=== PATIENT | female | born 1950 | race American Indian/Alaskan Native ===

== ENCOUNTER 2022-03-03 12:31 | Inpatient (IN) | payer MEDICARE ==
--- NOTE | 2022-03-03 13:45 | XRay Report ---
. XR chest 1V ap INDICATION / CLINICAL INFORMATION: Dyspnea. COMPARISON: 12/13/2010 FINDINGS: SUPPORT DEVICES: None. HEART /PULMONARY VASCULATURE: Cardiac enlargement with pulmonary vasculature congestion. LUNGS / PLEURA: Diffuse increased interstitial opacities, likely reflecting edema. No focal airspace consolidation is identified. No sizable pleural effusion. No pneumothorax. ADDITIONAL FINDINGS: No significant additional findings. IMPRESSION: CHF/volume overload with moderate pulmonary edema. Signer Name: Evans Payne MD Signed: 03/03/2022 1:41 PM Workstation Name: [employer]
[2022-03-03] MEDS ORDERED: FUROSEMIDE 40 MG/4 ML INJ IV ONE (13:59)
[2022-03-03 14:20] LABS: Basophils % (Auto) 0.5 % (0.0-1.8); Eosinophils # (Auto) 0.2 K/mm3 (0.0-0.4); Eosinophils % (Auto) 2.1 % (0.0-4.3); Hematocrit 41.1 % (30.3-42.9); Hemoglobin 13.1 gm/dl (10.1-14.3); Lymphocytes # (Auto) 0.8 K/mm3 (1.2-5.4); Lymphocytes % (Auto) 9.7 % (13.4-35.0); Mean Corpuscular HGB Conc 32 % (30-34); Mean Corpuscular Volume 91 fl (79-97); Monocytes # (Auto) 0.3 K/mm3 (0.0-0.8); Monocytes % (Auto) 3.1 % (0.0-7.3); Platelet Count 211 K/mm3 (140-440); Red Blood Count 4.51 M/mm3 (3.65-5.03); Red Cell Distribution Width 16.1 % (13.2-15.2)
[2022-03-03 14:35] LABS: Albumin 3.5 g/dL (3.9-5); Calcium 9.6 mg/dL (8.4-10.2)
--- NOTE | 2022-03-03 14:54 | Emergency Department Report ---
ED Shortness of Breath HPI - General Chief Complaint: Dyspnea/Respdistress Stated Complaint: SOB Time Seen by Provider: 03/03/22 12:59 Source: patient, EMS Mode of arrival: Stretcher Limitations: Physical Limitation - History of Present Illness Initial Comments: Patient is a 71-year-old female presenting to ED with complaint of shortness of breath. States she was at her PCPs office earlier today stating she was not feeling well when symptoms began. She has history of CHF and is on home oxygen at 5 L/min. - Related Data Allergies Allergy/AdvReac Type Severity Reaction Status Date / Time iodine Allergy Anaphylaxis Verified 03/03/22 12:49 Penicillins Allergy Anaphylaxis Verified 03/03/22 12:49 shellfish derived Allergy Anaphylaxis Verified 03/03/22 12:49 ED Review of Systems ROS: Stated complaint: SOB Other details as noted in HPI Constitutional: denies: chills, fever Respiratory: SOB at rest Cardiovascular: denies: chest pain, palpitations Endocrine: no symptoms reported Gastrointestinal: denies: abdominal pain, nausea, diarrhea Musculoskeletal: denies: back pain, joint swelling, arthralgia Skin: denies: rash, lesions Neurological: denies: headache, weakness, paresthesias Psychiatric: denies: anxiety, depression ED Past Medical Hx - Past Medical History Previous Medical History?: Yes Hx Hypertension: Yes Hx Congestive Heart Failure: Yes Hx Diabetes: No Hx Deep Vein Thrombosis: No Hx Arthritis: Yes Hx Asthma: Yes Hx COPD: No - Surgical History Past Surgical History?: Yes Additional Surgical History: Left knee surgery, Left heel - Social History Smoking Status: Former Smoker ED Physical Exam - General Limitations: Physical Limitation General appearance: alert, in no apparent distress, obese - Head Head exam: Present: atraumatic, normocephalic - Respiratory Respiratory exam: Present: respiratory distress (Mild), decreased breath sounds - Cardiovascular Cardiovascular Exam: Present: regular rate, normal rhythm, normal heart sounds - GI/Abdominal GI/Abdominal exam: Present: soft. Absent: distended, tenderness - Rectal Rectal exam: Present: deferred - Neurological Exam Neurological exam: Present: alert, oriented X3 - Psychiatric Psychiatric exam: Present: normal affect, normal mood - Skin Skin exam: Present: warm, dry, intact, normal color ED Course Vital Signs 03/03/22 03/03/22 12:43 13:29 Temperature 98.4 F 98.0 F Pulse Rate 82 78 Respiratory 20 13 Rate Blood Pressure 156/86 127/65 [Left] O2 Sat by Pulse 92 93 Oximetry ED Medical Decision Making - Lab Data Result diagrams: 03/03/22 13:34 03/03/22 13:34 - Medical Decision Making Chest x-ray shows cardiomegaly with moderate pulmonary edema suggestive of acute CHF exacerbation. Patient given IV Lasix in the emergency department. BNP 11,800. Will admit to hospitalist for further diuresis. Critical care attestation.: If time is entered above; I have spent that time in minutes in the direct care of this critically ill patient, excluding procedure time. ED Disposition Clinical Impression: CHF exacerbation Disposition: ADMITTED INPATIENT Is pt being admited?: Yes Condition: Stable
--- NOTE | 2022-03-03 20:19 | History and Physical Report ---
History of Present Illness Date of examination: 03/03/22 Date of admission: 03/03/2022 Chief complaint: Increasing shortness of breath for couple of days History of present illness: 71-year-old -[place] female with pleasant and smiling sent from her PCPs office for increasing shortness of breath. Patient has history of CHF 5 L nasal cannula oxygen at home. Patient states that she is compliant with medications. Medication list not on the chart. Patient has orthopnea and shortness of breath on minimal exertion. Consistent with class IV NYHA symptoms. No PND attacks. No chest pain. No palpitations. No diaphoresis. Patient is an exacerbating factor and rest is a relieving factor. Occasional chest pain - Past Medical History --Previous Medical History?: Yes --Hypertension: Yes --Congestive Heart Failure: Yes --Arthritis: Yes --Asthma: Yes - Surgical History --Past Surgical History?: Yes --Additional Surgical History: Left knee surgery, Left heel - Social History --Smoking Status: Former Smoker -Review of Systems --ROS: --Stated complaint: SOB ---Other details as noted in HPI Constitutional: denies: chills, fever Respiratory: SOB at rest Cardiovascular: Shortness of breath on minimal exertion Endocrine: no symptoms reported Gastrointestinal: denies: abdominal pain, nausea, diarrhea Musculoskeletal: denies: back pain, joint swelling, arthralgia Skin: denies: rash, lesions Neurological: denies: headache, weakness, paresthesias Psychiatric: denies: anxiety, depression Medications and Allergies Allergies Allergy/AdvReac Type Severity Reaction Status Date / Time iodine Allergy Anaphylaxis Verified 03/03/22 12:49 Penicillins Allergy Anaphylaxis Verified 03/03/22 12:49 shellfish derived Allergy Anaphylaxis Verified 03/03/22 12:49 Exam - Constitutional Vitals: Temp Pulse Resp BP Pulse Ox 98.0 F 78 13 127/65 93 03/03/22 13:29 03/03/22 13:29 03/03/22 13:29 03/03/22 13:29 03/03/22 13:29 General appearance: Present: mild distress, well-nourished - EENT Eyes: Present: PERRL ENT: hearing intact, clear oral mucosa - Neck Neck: Present: supple, normal ROM - Respiratory Respiratory effort: normal Respiratory: bilateral: CTA - Cardiovascular Rhythm: regular Heart Sounds: Present: S1 & S2. Absent: rub, click - Extremities Extremities: pulses symmetrical, No edema Peripheral Pulses: within normal limits - Abdominal General gastrointestinal: Present: soft, non-tender, non-distended, normal bowel sounds Female genitourinary: Present: normal - Integumentary Integumentary: Present: clear, warm, dry - Musculoskeletal Musculoskeletal: gait normal, strength equal bilaterally - Psychiatric Psychiatric: appropriate mood/affect, intact judgment & insight - Neurologic Neurologic: CNII-XII intact, moves all extremities HEART Score - HEART Score History: Highly suspicious Age: > 65 Risk factors: 1-2 risk factors Troponin: Troponin T < 0.010 ng/mL (0.00-0.029) 03/03/22 13:34 Troponin: < normal limit - Critical Actions Critical Actions: 4-6 pts:12-16.6% risk of adverse cardiac event. Should be admitted Results - Labs CBC & Chem 7: 03/04/22 03:05 03/04/22 02:51 Labs: Laboratory Last Values WBC 8.5 K/mm3 (4.5-11.0) 03/03/22 13:34 RBC 4.51 M/mm3 (3.65-5.03) 03/03/22 13:34 Hgb 13.1 gm/dl (10.1-14.3) 03/03/22 13:34 Hct 41.1 % (30.3-42.9) 03/03/22 13:34 MCV 91 fl (79-97) 03/03/22 13:34 MCH 29 pg (28-32) 03/03/22 13:34 MCHC 32 % (30-34) 03/03/22 13:34 RDW 16.1 % (13.2-15.2) H 03/03/22 13:34 Plt Count 211 K/mm3 (140-440) 03/03/22 13:34 Lymph % (Auto) 9.7 % (13.4-35.0) L 03/03/22 13:34 [place] % (Auto) 3.1 % (0.0-7.3) 03/03/22 13:34 Eos % (Auto) 2.1 % (0.0-4.3) 03/03/22 13:34 Baso % (Auto) 0.5 % (0.0-1.8) 03/03/22 13:34 Lymph # (Auto) 0.8 K/mm3 (1.2-5.4) L 03/03/22 13:34 [place] # (Auto) 0.3 K/mm3 (0.0-0.8) 03/03/22 13:34 Eos # (Auto) 0.2 K/mm3 (0.0-0.4) 03/03/22 13:34 Baso # (Auto) 0.0 K/mm3 (0.0-0.1) 03/03/22 13:34 Seg Neutrophils % 84.6 % (40.0-70.0) H 03/03/22 13:34 Seg Neutrophils # 7.2 K/mm3 (1.8-7.7) 03/03/22 13:34 Sodium 141 mmol/L (137-145) 03/03/22 13:34 Potassium 4.8 mmol/L (3.6-5.0) 03/03/22 13:34 Chloride 106.2 mmol/L (98-107) 03/03/22 13:34 Carbon Dioxide 22 mmol/L (22-30) 03/03/22 13:34 Anion Gap 18 mmol/L 03/03/22 13:34 BUN 47 mg/dL (7-17) H 03/03/22 13:34 Creatinine 1.7 mg/dL (0.6-1.2) H 03/03/22 13:34 Estimated GFR 36 ml/min 03/03/22 13:34 BUN/Creatinine Ratio 28 % 03/03/22 13:34 Glucose 101 mg/dL (65-100) H 03/03/22 13:34 Calcium 9.6 mg/dL (8.4-10.2) 03/03/22 13:34 Total Bilirubin 0.50 mg/dL (0.1-1.2) 03/03/22 13:34 AST 13 units/L (5-40) 03/03/22 13:34 ALT 7 units/L (7-56) 03/03/22 13:34 Alkaline Phosphatase 102 units/L (35-129) 03/03/22 13:34 Troponin T < 0.010 ng/mL (0.00-0.029) 03/03/22 13:34 NT-Pro-B Natriuret Pep 95145 pg/mL (0-900) H 03/03/22 13:34 Total Protein 9.1 g/dL (6.3-8.2) H 03/03/22 13:34 Albumin 3.5 g/dL (3.9-5) L 03/03/22 13:34 Albumin/Globulin Ratio 0.6 % 03/03/22 13:34 Short CBC 03/03/22 Range/Units 13:34 WBC 8.5 (4.5-11.0) K/mm3 Hgb 13.1 (10.1-14.3) gm/dl Hct 41.1 (30.3-42.9) % Plt Count 211 (140-440) K/mm3 BMP 03/03/22 13:34 Sodium 141 Potassium 4.8 Chloride 106.2 Carbon Dioxide 22 BUN 47 H Creatinine 1.7 H Glucose 101 H Calcium 9.6 Cardiac Enzymes 03/03/22 Range/Units 13:34 Troponin T < 0.010 (0.00-0.029) ng/mL Liver Function 03/03/22 Range/Units 13:34 Total Bilirubin 0.50 (0.1-1.2) mg/dL AST 13 (5-40) units/L ALT 7 (7-56) units/L Alkaline Phosphatase 102 (35-129) units/L Albumin 3.5 L (3.9-5) g/dL - Imaging and Cardiology EKG: report reviewed (Sinus tachycardia no acute ST-T wave changes) Chest x-ray: report reviewed Imaging and Cardiology: Chest x-ray Findings Cardiac enlargement with pulmonary vascular congestion Diffuse increased interstitial opacities likely reflecting edema. No focal airspace consolidation is identified. No sizable pleural effusion. No pneumothorax. Impression Assessment and Plan Advance Directives: Yes Plan of care discussed with patient/family: Yes - Patient Problems (1) Acute respiratory failure with hypoxia Current Visit: Yes Status: Acute Plan to address problem: Patient is on 5 L nasal cannula oxygen at home Patient was hypoxic initially at the time of admission to the ER (2) Acute exacerbation of congestive heart failure Current Visit: Yes Status: Acute Qualifiers: Heart failure type: combined systolic and diastolic Qualified Code(s): I50.43 - Acute on chronic combined systolic (congestive) and diastolic (congestive) heart failure Plan to address problem: Patient initiated on IV Lasix and Aldactone Noncompliance Daily weights Daily intake and output Echocardiogram for ejection fraction and wall motion and valvular abnormalities Cardiology consult BNP is 11 875 (3) HTN (hypertension) Current Visit: Yes Status: Chronic Qualifiers: Hypertension type: primary hypertension Qualified Code(s): I10 - Essential (primary) hypertension Plan to address problem: Home medications not on chart to be reconsidered Patient initiated on losartan and Coreg (4) Atypical chest pain Current Visit: Yes Status: Inactive Plan to address problem: Noncardiac Repeat troponin First troponin is normal (5) DVT prophylaxis Current Visit: Yes Status: Acute Plan to address problem: On anticoagulation GI prophylaxis (6) Advance care planning Current Visit: Yes Status: Acute Plan to address problem: Disease education conducted, care plan discussed, diagnosis discussed, prognosis discussed and patient acknowledged understanding with care plan. +30 minutes.
[2022-03-03] MEDS ORDERED: METOCLOPRAMIDE 10 MG/2 ML INJ IV PRN (20:28)
[2022-03-03] MEDS ORDERED: MORPHINE 2 MG/1 ML INJ IV PRN (20:28)
[2022-03-03] MEDS ORDERED: ONDANSETRON 4 MG/2 ML INJ IV PRN (20:28)
[2022-03-03] MEDS ORDERED: SPIRONOLACTONE 50 MG TAB PO ONE (20:46)
[2022-03-03] MEDS ORDERED: FAMOTIDINE 20 MG/2 ML INJ IV SCH (22:00)
[2022-03-03] MEDS ORDERED: HEPARIN 5,000 UNIT/1 ML VIAL SUB-Q SCH (22:00)
[2022-03-03] MEDS: FAMOTIDINE 20 MG/2 ML INJ IV SCH (22:19)
[2022-03-03] MEDS: FUROSEMIDE 40 MG/4 ML INJ IV SCH (22:19)
[2022-03-04 03:47] LABS: Basophils % (Auto) 0.3 % (0.0-1.8); Eosinophils # (Auto) 0.2 K/mm3 (0.0-0.4); Eosinophils % (Auto) 1.8 % (0.0-4.3); Hematocrit 40.5 % (30.3-42.9); Hemoglobin 12.7 gm/dl (10.1-14.3); Lymphocytes # (Auto) 0.8 K/mm3 (1.2-5.4); Lymphocytes % (Auto) 8.9 % (13.4-35.0); Mean Corpuscular HGB Conc 31 % (30-34); Mean Corpuscular Volume 92 fl (79-97); Monocytes # (Auto) 0.4 K/mm3 (0.0-0.8); Monocytes % (Auto) 4.9 % (0.0-7.3); Platelet Count 208 K/mm3 (140-440); Red Blood Count 4.39 M/mm3 (3.65-5.03)
[2022-03-04 04:06] LABS: Albumin 3.4 g/dL (3.9-5); Calcium 9.4 mg/dL (8.4-10.2)
[2022-03-04] MEDS: FUROSEMIDE 40 MG/4 ML INJ IV SCH ×2 (07:43→19:01)
[2022-03-04] MEDS: FAMOTIDINE 20 MG/2 ML INJ IV SCH ×2 (09:41→21:42)
--- NOTE | 2022-03-04 12:51 | Consultation ---
History of Present Illness - Reason for Consult Consult date: 03/04/22 chronic renal failure Requesting physician: STAR PATTERSON - History of Present Illness This is a 71 yo F with past medical history of type 2 DM, Hypertension, HFpEF, ELISEO, on home O2, who was sent to from her PCPs office for increasing shortness of breath. Patient states that she is compliant with medications./ Patient has orthopnea and shortness of breath on minimal exertion. Consistent with class IV NYHA symptoms. CXR showed evidence of volume overload with pulmonary edema. Labs showed elevated BUN/Cr at 46/1.8mg/dl for which renal consult is requested. Based on history and review of previous charts, pt has underlying CKD 3b in the past, but she has not been seeing a comptometer operator, since she has been on hospice. Patient denies recent NSAIDs use or IV contrast exposure. Past History Past Medical History: diabetes, heart failure, hypertension, renal failure Past Surgical History: Other Social history: denies: smoking, alcohol abuse, prescription drug abuse, IV drug use Family history: hypertension Medications and Allergies Allergies Allergy/AdvReac Type Severity Reaction Status Date / Time iodine Allergy Anaphylaxis Verified 03/03/22 12:49 Penicillins Allergy Anaphylaxis Verified 03/03/22 12:49 shellfish derived Allergy Anaphylaxis Verified 03/03/22 12:49 Active Meds: Active Medications Acetaminophen (Acetaminophen 325 Mg Tab) 650 mg PO Q4H PRN PRN Reason: Pain MILD(1-3)/Fever >100.5/[place]OFF[place] Famotidine (Famotidine 20 Mg/2 Ml Inj) 10 mg IV BID [facility] Last Admin: 03/04/22 09:41 Dose: 10 mg Furosemide (Furosemide 40 Mg/4 Ml Inj) 40 mg IV 0600,1800 [facility] Last Admin: 03/04/22 07:43 Dose: 40 mg Heparin Sodium (Porcine) (Heparin 5,000 Unit/1 Ml Vial) 5,000 unit SUB-Q Q8HR [facility] Metoclopramide HCl (Metoclopramide 10 Mg/2 Ml Inj) 10 mg IV Q6H PRN PRN Reason: Nausea And Vomiting Morphine Sulfate (Morphine 2 Mg/1 Ml Inj) 2 mg IV Q4H PRN PRN Reason: Pain, Moderate (4-6) Ondansetron HCl (Ondansetron 4 Mg/2 Ml Inj) 4 mg IV Q8H PRN PRN Reason: Nausea And Vomiting Oxycodone/Acetaminophen (Oxycodone /Acetaminophen 5-325mg Tab) 1 tab PO Q6H PRN PRN Reason: Pain, Moderate (4-6) Sodium Chloride (Sodium Chloride 0.9% 10 Ml Flush Syringe) 10 ml IV BID [facility] Last Admin: 03/04/22 09:44 Dose: 10 ml Sodium Chloride (Sodium Chloride 0.9% 10 Ml Flush Syringe) 10 ml IV PRN PRN PRN Reason: LINE FLUSH Review of Systems All systems: negative Constitutional: fatigue, weakness, malaise Cardiovascular: orthopnea, shortness of breath, dyspnea on exertion Exam - Vital Signs Vital signs: Vital Signs Temp Pulse Resp BP Pulse Ox 98.4 F 82 20 156/86 92 03/03/22 12:43 03/03/22 12:43 03/03/22 12:43 03/03/22 12:43 03/03/22 12:43 - General Appearance General appearance: well-developed, well-nourished, appears stated age, other (on O2 via [place] ) EENT: ATNC, PERRL, mucous membranes moist Neck: Present: neck supple Respiratory: Rales, Decreased Breath Sounds Heart: regular, S1S2 Gastrointestinal: Present: normoactive bowel sounds Integumentary: no rash Neurologic: no focal deficit, alert and oriented x3, strength 5/5, CN 3-12 intact Psychiatric: mood/affect appropriate, cooperative Results - Lab Results 03/04/22 03:05 03/04/22 02:51 Most recent lab results Calcium 9.4 mg/dL (8.4-10.2) 03/04/22 02:51 Assessment and Plan - Patient Problems (1) Chronic kidney disease, stage 3b Current Visit: Yes Status: Acute Plan to address problem: patient has known underlying CKD, most likely secondary to hypertensive nephrosclerosis. Compared to previous labs, pt appears to be at her baseline. Cont supportive care for CKD, avoid nephrotoxins, NSAIDs, IV contrast. Will check UA, urine lytes, urine protein/cr ratio (2) Hypertensive chronic kidney disease with stage 1 through stage 4 chronic kidney disease, or unspecified chronic kidney disease Current Visit: Yes Status: Acute Plan to address problem: monitor BP on current meds (3) Acute exacerbation of congestive heart failure Current Visit: Yes Status: Acute Qualifiers: Heart failure type: combined systolic and diastolic Qualified Code(s): I50.43 - Acute on chronic combined systolic (congestive) and diastolic (congestive) heart failure Plan to address problem: cont IV lasix, cont 2g Na diet, fluid restriction to 1.2L/day. strict I/Os, da corbin weight. Target net negative fluid balance to >1L/day. Echo is pending (4) Acute respiratory failure with hypoxia Current Visit: Yes Status: Acute Plan to address problem: started on IV lasix for volume control, cont supplemental O2 via NC
--- NOTE | 2022-03-04 13:48 | Consultation ---
History of Present Illness Consult date: 03/04/22 Consult reason: congestive heart failure, shortness of breath History of present illness: The patient is a 71-year-old woman who is morbidly obese, with obstructive sleep apnea on home CPAP, states that she has been on home hospice for the past 2 years. 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 She gives a history of "CHF" which she states was given to her many years ago, but there is no documentation for this. A cardiac catheterization in her records done in January 2011 showed no significant coronary artery disease, and left ventricular ejection fraction 50%. Her problem list at that time was hypertension and severe obesity, following which she was lost to cardiac follow- up in 2012. Work-up so far on this presentation, ECG is normal sinus rhythm, with poor R wave progression and nonspecific lateral T wave changes. There is either a right axis deviation or limb lead malposition based on axis changes on this ECG. Serial cardiac enzymes are negative. Chest x-ray revealed mild to moderate di ffuse interstitial edema. Past History Past Medical History: diabetes, hypertension, other (Severe obesity with obstructive sleep apnea) Past Surgical History: Other Social history: denies: smoking, alcohol abuse, prescription drug abuse, IV drug use Family history: hypertension Medications and Allergies Allergies Allergy/AdvReac Type Severity Reaction Status Date / Time iodine Allergy Anaphylaxis Verified 03/03/22 12:49 Penicillins Allergy Anaphylaxis Verified 03/03/22 12:49 shellfish derived Allergy Anaphylaxis Verified 03/03/22 12:49 Active Meds: Active Medications Acetaminophen (Acetaminophen 325 Mg Tab) 650 mg PO Q4H PRN PRN Reason: Pain MILD(1-3)/Fever >100.5/[place] Famotidine (Famotidine 20 Mg/2 Ml Inj) 10 mg IV BID [facility] Last Admin: 03/04/22 09:41 Dose: 10 mg Furosemide (Furosemide 40 Mg/4 Ml Inj) 40 mg IV 0600,1800 [facility] Last Admin: 03/04/22 07:43 Dose: 40 mg Heparin Sodium (Porcine) (Heparin 5,000 Unit/1 Ml Vial) 5,000 unit SUB-Q Q8HR [facility] Metoclopramide HCl (Metoclopramide 10 Mg/2 Ml Inj) 10 mg IV Q6H PRN PRN Reason: Nausea And Vomiting Morphine Sulfate (Morphine 2 Mg/1 Ml Inj) 2 mg IV Q4H PRN PRN Reason: Pain, Moderate (4-6) Ondansetron HCl (Ondansetron 4 Mg/2 Ml Inj) 4 mg IV Q8H PRN PRN Reason: Nausea And Vomiting Oxycodone/Acetaminophen (Oxycodone /Acetaminophen 5-325mg Tab) 1 tab PO Q6H PRN PRN Reason: Pain, Moderate (4-6) Sodium Chloride (Sodium Chloride 0.9% 10 Ml Flush Syringe) 10 ml IV BID [facility] Last Admin: 03/04/22 09:44 Dose: 10 ml Sodium Chloride (Sodium Chloride 0.9% 10 Ml Flush Syringe) 10 ml IV PRN PRN PRN Reason: LINE FLUSH Review of Systems Cardiovascular: edema, shortness of breath, no chest pain, no orthopnea, no palpitations, no rapid/irregular heart beat, no syncope, no lightheadedness Physical Examination Vital Signs Temp Pulse Resp BP Pulse Ox 98.4 F 82 20 156/86 92 03/03/22 12:43 03/03/22 12:43 03/03/22 12:43 03/03/22 12:43 03/03/22 12:43 General appearance: mild distress HEENT: Positive: PERRL Neck: Positive: neck supple Cardiac: Positive: Reg Rate and Rhythm Lungs: Positive: Decreased Breath Sounds Neuro: Positive: Grossly Intact Abdomen: Positive: Soft Female genitourinary: deferred Skin: Positive: Clear Extremities: Present: edema (Minimal) Results 03/04/22 03:05 03/04/22 02:51 Cardiac Enzymes 03/03/22 03/04/22 Range/Units 13:34 02:51 AST 13 12 (5-40) units/L CBC 03/03/22 03/04/22 Range/Units 13:34 03:05 WBC 8.5 8.5 (4.5-11.0) K/mm3 RBC 4.51 4.39 (3.65-5.03) M/mm3 Hgb 13.1 12.7 (10.1-14.3) gm/dl Hct 41.1 40.5 (30.3-42.9) % Plt Count 211 208 (140-440) K/mm3 Lymph # (Auto) 0.8 L 0.8 L (1.2-5.4) K/mm3 [place] # (Auto) 0.3 0.4 (0.0-0.8) K/mm3 Eos # (Auto) 0.2 0.2 (0.0-0.4) K/mm3 Baso # (Auto) 0.0 0.0 (0.0-0.1) K/mm3 Comprehensive Metabolic Panel 03/03/22 03/04/22 Range/Units 13:34 02:51 Sodium 141 141 (137-145) mmol/L Potassium 4.8 4.4 (3.6-5.0) mmol/L Chloride 106.2 104.6 (98-107) mmol/L Carbon Dioxide 22 24 (22-30) mmol/L BUN 47 H 46 H (7-17) mg/dL Creatinine 1.7 H 1.8 H (0.6-1.2) mg/dL Glucose 101 H 119 H (65-100) mg/dL Calcium 9.6 9.4 (8.4-10.2) mg/dL AST 13 12 (5-40) units/L ALT 7 6 L (7-56) units/L Alkaline Phosphatase 102 91 (35-129) units/L Total Protein 9.1 H 8.4 H (6.3-8.2) g/dL Albumin 3.5 L 3.4 L (3.9-5) g/dL EKG interpretations - Telemetry EKG Rhythm: Sinus Rhythm Assessment and Plan - Patient Problems (1) Interstitial edema Current Visit: Yes Status: Acute Plan to address problem: 71-year-old woman with morbid obesity, obstructive sleep apnea, hypertension, presents with shortness of breath and chest x-ray evidence of mild to moderate i nterstitial edema. Previous invasive cardiac work-up 10 years ago showed no significant coronary artery disease. Prior left ventricular systolic function assessment was well-preserved at 50%. An echocardiogram will be done for left ventricular function assessment. Continue diuretics and risk factor modification. Further cardiac evaluation and management will depend on clinical course.
--- NOTE | 2022-03-04 13:52 | Progress Note ---
Assessment and Plan Assessment and plan: #Acute on chronic hypoxic respiratory failure - etiology: Heart failure exacerbation. - baseline oxygen requirements: 5 L nasal cannula - supplemental oxygen: 8 L nasal cannula - Continue protocol: continue pulse oximetry, wean oxygen as tolerated, ordered incentive spirometry and educated patient on how to use it and its importance. - continue to monitor #Acute on chronic heart failure - Continue CHF exacerbation protocol: Telemetry, Strict I/O, monitor urine output every shift, daily weights, afterload reduction, low-sodium diet, and fluid restriction of approximately 1.5 mL/day, IV Lasix 40 mg twice daily - Supplemental oxygen: 8 L nasal cannula - ProBNP on admission: 875 - Cardiology consulted; pending recs - Pending TTE to evaluate cardiac function - Continue to monitor #Atypical chest pain Negative troponin x2 Likely secondary to volume overload in the setting of acute heart failure. #CKD stage III versus RIN Creatinine 1.8 (baseline unknown) Renally dose meds and avoid nephrotoxic drugs. Nephrology consulted; appreciate recs #Mild protein caloric malnutrition Albumin 3.4 Starting dietary supplementation #Morbid obesity #Weight loss counseling #Exercise counseling - BMI 53.1 - Counseled patient on the importance of weight loss, incorporating exercise, and dietary changes (lean meats, fresh fruits and vegetables, and water intake). Patient expresses understanding. - Time: +15 min #Advanced care planning -Disease education conducted, care plan discussed, diagnoses discussed, prognosis discussed, and patient acknowledges understanding with care plan -Time: +30 min Disposition Plan: Continue medical management Total Time Spent with Patient (Minutes): 45 minutes History Interval history: No acute events overnight. Hospitalist Physical - Constitutional Vitals: Temp Pulse Resp BP Pulse Ox 98.0 F 84 19 112/62 95 03/04/22 07:32 03/04/22 12:26 03/04/22 12:26 03/04/22 12:26 03/04/22 12:26 General appearance: Present: mild distress, well-nourished, obese - EENT Eyes: Present: PERRL, EOM intact ENT: hearing intact, clear oral mucosa, dentition normal - Neck Neck: Present: supple, normal ROM - Respiratory Respiratory effort: normal Respiratory: bilateral: diminished (8 L nasal cannula), rales - Cardiovascular Rhythm: regular Heart Sounds: Present: S1 & S2 - Extremities Extremities: no ischemia, pulses intact, pulses symmetrical, normal temperature, normal color Extremity abnormal: edema (Trace edema bilateral lower extremities) Peripheral Pulses: within normal limits - Abdominal General gastrointestinal: soft, non-tender, non-distended, normal bowel sounds - Integumentary Integumentary: Present: clear, warm, dry - Psychiatric Psychiatric: appropriate mood/affect, cooperative - Neurologic Neurologic: CNII-XII intact - Allied Health Allied health notes reviewed: nursing HEART Score - HEART Score Age: > 65 Risk factors: 1-2 risk factors Troponin: Troponin T < 0.010 ng/mL (0.00-0.029) 03/03/22 13:34 Troponin: < normal limit - Critical Actions Critical Actions: 4-6 pts:12-16.6% risk of adverse cardiac event. Should be admitted Results - Labs CBC & Chem 7: 03/04/22 03:05 03/04/22 02:51 Labs: Laboratory Last Values WBC 8.5 K/mm3 (4.5-11.0) 03/04/22 03:05 RBC 4.39 M/mm3 (3.65-5.03) 03/04/22 03:05 Hgb 12.7 gm/dl (10.1-14.3) 03/04/22 03:05 Hct 40.5 % (30.3-42.9) 03/04/22 03:05 MCV 92 fl (79-97) 03/04/22 03:05 MCH 29 pg (28-32) 03/04/22 03:05 MCHC 31 % (30-34) 03/04/22 03:05 RDW 16.0 % (13.2-15.2) H 03/04/22 03:05 Plt Count 208 K/mm3 (140-440) 03/04/22 03:05 Lymph % (Auto) 8.9 % (13.4-35.0) L 03/04/22 03:05 [place] % (Auto) 4.9 % (0.0-7.3) 03/04/22 03:05 Eos % (Auto) 1.8 % (0.0-4.3) 03/04/22 03:05 Baso % (Auto) 0.3 % (0.0-1.8) 03/04/22 03:05 Lymph # (Auto) 0.8 K/mm3 (1.2-5.4) L 03/04/22 03:05 [place] # (Auto) 0.4 K/mm3 (0.0-0.8) 03/04/22 03:05 Eos # (Auto) 0.2 K/mm3 (0.0-0.4) 03/04/22 03:05 Baso # (Auto) 0.0 K/mm3 (0.0-0.1) 03/04/22 03:05 Seg Neutrophils % 84.1 % (40.0-70.0) H 03/04/22 03:05 Seg Neutrophils # 7.2 K/mm3 (1.8-7.7) 03/04/22 03:05 Sodium 141 mmol/L (137-145) 03/04/22 02:51 Potassium 4.4 mmol/L (3.6-5.0) 03/04/22 02:51 Chloride 104.6 mmol/L (98-107) 03/04/22 02:51 Carbon Dioxide 24 mmol/L (22-30) 03/04/22 02:51 Anion Gap 17 mmol/L 03/04/22 02:51 BUN 46 mg/dL (7-17) H 03/04/22 02:51 Creatinine 1.8 mg/dL (0.6-1.2) H 03/04/22 02:51 Estimated GFR 34 ml/min 03/04/22 02:51 BUN/Creatinine Ratio 26 % 03/04/22 02:51 Glucose 119 mg/dL (65-100) H 03/04/22 02:51 Calcium 9.4 mg/dL (8.4-10.2) 03/04/22 02:51 Total Bilirubin 0.60 mg/dL (0.1-1.2) 03/04/22 02:51 AST 12 units/L (5-40) 03/04/22 02:51 ALT 6 units/L (7-56) L 03/04/22 02:51 Alkaline Phosphatase 91 units/L (35-129) 03/04/22 02:51 Troponin T < 0.010 ng/mL (0.00-0.029) 03/03/22 13:34 NT-Pro-B Natriuret Pep 18032 pg/mL (0-900) H 03/03/22 13:34 Total Protein 8.4 g/dL (6.3-8.2) H 03/04/22 02:51 Albumin 3.4 g/dL (3.9-5) L 03/04/22 02:51 Albumin/Globulin Ratio 0.7 % 03/04/22 02:51 Active Medications - Current Medications Current Medications: Generic Name Dose Route Start Last Admin Trade Name Freq PRN Reason Stop Dose Admin Acetaminophen 650 mg 03/03/22 20:28 Acetaminophen 325 Mg Tab PO Q4H PRN Pain MILD(1-3)/Fever >100.5/HOFFMAN Famotidine 10 mg 03/03/22 22:00 03/04/22 09:41 Famotidine 20 Mg/2 Ml Inj IV 10 mg BID VERN Administration Furosemide 40 mg 03/03/22 21:30 03/04/22 07:43 Furosemide 40 Mg/4 Ml Inj IV 40 mg 0600,1800 VERN Administration Heparin Sodium (Porcine) 5,000 unit 03/04/22 14:00 Heparin 5,000 Unit/1 Ml Vial SUB-Q Q8HR VERN Metoclopramide HCl 10 mg 03/03/22 20:28 Metoclopramide 10 Mg/2 Ml Inj IV Q6H PRN Nausea And Vomiting Morphine Sulfate 2 mg 03/03/22 20:28 Morphine 2 Mg/1 Ml Inj IV Q4H PRN Pain, Moderate (4-6) Ondansetron HCl 4 mg 03/03/22 20:28 Ondansetron 4 Mg/2 Ml Inj IV Q8H PRN Nausea And Vomiting Oxycodone/Acetaminophen 1 tab 03/03/22 20:28 Oxycodone /Acetaminophen 5-325mg Tab PO Q6H PRN Pain, Moderate (4-6) Sodium Chloride 10 ml 03/03/22 22:00 03/04/22 09:44 Sodium Chloride 0.9% 10 Ml Flush Syringe IV 10 ml BID VERN Administration Sodium Chloride 10 ml 03/03/22 20:28 Sodium Chloride 0.9% 10 Ml Flush Syringe IV PRN PRN LINE FLUSH
[2022-03-04] MEDS: HEPARIN 5,000 UNIT/1 ML VIAL SUB-Q SCH ×2 (15:25→21:42)
[2022-03-04 18:01] LABS: Bilirubin,Urine NEG (Negative); Blood,Urine MOD (Negative); Color,Urine Yellow (Yellow); Protein,Urine <15 mg/dL mg/dL (Negative); Urobilinogen,Urine < 2.0 mg/dL (<2.0)
[2022-03-04 18:15] LABS: Bacteria,Urine 1+ /HPF (Negative); Mucus,Urine FEW /HPF
[2022-03-04 18:45] LABS: Creatinine,Urine 41.2 mg/dL (0.1-20.0)
[2022-03-05] MEDS: FUROSEMIDE 40 MG/4 ML INJ IV SCH ×2 (06:21→19:34)
[2022-03-05] MEDS: HEPARIN 5,000 UNIT/1 ML VIAL SUB-Q SCH ×3 (06:21→22:33)
--- NOTE | 2022-03-05 08:50 | Progress Note ---
Assessment and Plan Assessment and plan: #Severe pulmonary hypertension #Acute on chronic hypoxic respiratory failure - etiology: Heart failure exacerbation. - baseline oxygen requirements: 5 L nasal cannula - supplemental oxygen: BiPAP Pulmonology consulted; appreciate recs - Continue protocol: continue pulse oximetry, wean oxygen as tolerated, ordered incentive spirometry and educated patient on how to use it and its importance. Continue IV Lasix 40 mg twice daily for volume reduction. - continue to monitor #Acute on chronic heart failureruled out - Continue CHF exacerbation protocol: Telemetry, Strict I/O, monitor urine output every shift, daily weights, afterload reduction, low-sodium diet, and fluid restriction of approximately 1.5 mL/day, IV Lasix 40 mg twice daily - Supplemental oxygen: 8 L nasal cannula - ProBNP on admission: ,875 - Cardiology consulted; appreciate recs - TTE (03/04/2022) revealing EF 50-55% with normal-sized LV, lower limits of normal LV systolic function, borderline concentric LVH, severely dilated RV, severely reduced RV systolic function, mildly dilated LA, severely dilated RA, RVSP >95 mmHg, and severe pulmonary hypertension. - Continue to monitor #Atypical chest painruled out Negative troponin x2 Likely secondary to volume overload in the setting of acute heart failure. #CKD stage III Creatinine 1.8 (baseline unknown) Renally dose meds and avoid nephrotoxic drugs. Nephrology consulted; appreciate recs #Mild protein caloric malnutrition Albumin 3.4 Starting dietary supplementation #Morbid obesity #Weight loss counseling #Exercise counseling - BMI 53.1 - Counseled patient on the importance of weight loss, incorporating exercise, and dietary changes (lean meats, fresh fruits and vegetables, and water intake). Patient expresses understanding. - Time: +15 min Critical Care Billing: The high probability of a clinically significant, sudden or life threatening deterioration of the [respiratory] system(s) required my full and direct attention, intervention and personal management. The aggregate critical care time was [60] minutes. This time is in addition to time spent performing reported procedures but includes the following: [x] Data Review and interpretation [x] Patient assessment and monitoring of vital signs [x] Documentation [x] Medication orders and management Disposition Plan: Continue medical management Total Time Spent with Patient (Minutes): 45 min History Interval history: No acute events overnight. Hospitalist Physical - Constitutional Vitals: Temp Pulse Resp BP Pulse Ox 97.4 F L 88 19 117/63 94 03/05/22 03:52 03/05/22 03:52 03/05/22 03:52 03/05/22 03:52 03/05/22 03:52 General appearance: Present: mild distress, well-nourished, obese - EENT Eyes: Present: PERRL, EOM intact ENT: hearing intact, clear oral mucosa, dentition normal - Neck Neck: Present: supple, normal ROM - Cardiovascular Rhythm: regular Heart Sounds: Present: S1 & S2 - Extremities Extremities: no ischemia, pulses intact, pulses symmetrical, normal temperature, normal color Peripheral Pulses: within normal limits - Abdominal General gastrointestinal: soft, non-tender, non-distended, normal bowel sounds - Integumentary Integumentary: Present: clear, warm, dry - Psychiatric Psychiatric: appropriate mood/affect, cooperative - Neurologic Neurologic: CNII-XII intact, moves all extremities - Allied Health Allied health notes reviewed: nursing HEART Score - HEART Score Age: > 65 Risk factors: 1-2 risk factors Troponin: Troponin T < 0.010 ng/mL (0.00-0.029) 03/03/22 13:34 Troponin: < normal limit - Critical Actions Critical Actions: 4-6 pts:12-16.6% risk of adverse cardiac event. Should be admitted Results - Labs CBC & Chem 7: 03/04/22 03:05 03/04/22 02:51 Labs: Laboratory Last Values WBC 8.5 K/mm3 (4.5-11.0) 03/04/22 03:05 RBC 4.39 M/mm3 (3.65-5.03) 03/04/22 03:05 Hgb 12.7 gm/dl (10.1-14.3) 03/04/22 03:05 Hct 40.5 % (30.3-42.9) 03/04/22 03:05 MCV 92 fl (79-97) 03/04/22 03:05 MCH 29 pg (28-32) 03/04/22 03:05 MCHC 31 % (30-34) 03/04/22 03:05 RDW 16.0 % (13.2-15.2) H 03/04/22 03:05 Plt Count 208 K/mm3 (140-440) 03/04/22 03:05 Lymph % (Auto) 8.9 % (13.4-35.0) L 03/04/22 03:05 [place] % (Auto) 4.9 % (0.0-7.3) 03/04/22 03:05 Eos % (Auto) 1.8 % (0.0-4.3) 03/04/22 03:05 Baso % (Auto) 0.3 % (0.0-1.8) 03/04/22 03:05 Lymph # (Auto) 0.8 K/mm3 (1.2-5.4) L 03/04/22 03:05 [place] # (Auto) 0.4 K/mm3 (0.0-0.8) 03/04/22 03:05 Eos # (Auto) 0.2 K/mm3 (0.0-0.4) 03/04/22 03:05 Baso # (Auto) 0.0 K/mm3 (0.0-0.1) 03/04/22 03:05 Seg Neutrophils % 84.1 % (40.0-70.0) H 03/04/22 03:05 Seg Neutrophils # 7.2 K/mm3 (1.8-7.7) 03/04/22 03:05 Sodium 141 mmol/L (137-145) 03/04/22 02:51 Potassium 4.4 mmol/L (3.6-5.0) 03/04/22 02:51 Chloride 104.6 mmol/L (98-107) 03/04/22 02:51 Carbon Dioxide 24 mmol/L (22-30) 03/04/22 02:51 Anion Gap 17 mmol/L 03/04/22 02:51 BUN 46 mg/dL (7-17) H 03/04/22 02:51 Creatinine 1.8 mg/dL (0.6-1.2) H 03/04/22 02:51 Estimated GFR 34 ml/min 03/04/22 02:51 BUN/Creatinine Ratio 26 % 03/04/22 02:51 Glucose 119 mg/dL (65-100) H 03/04/22 02:51 Calcium 9.4 mg/dL (8.4-10.2) 03/04/22 02:51 Total Bilirubin 0.60 mg/dL (0.1-1.2) 03/04/22 02:51 AST 12 units/L (5-40) 03/04/22 02:51 ALT 6 units/L (7-56) L 03/04/22 02:51 Alkaline Phosphatase 91 units/L (35-129) 03/04/22 02:51 Troponin T < 0.010 ng/mL (0.00-0.029) 03/03/22 13:34 NT-Pro-B Natriuret Pep 30306 pg/mL (0-900) H 03/03/22 13:34 Total Protein 8.4 g/dL (6.3-8.2) H 03/04/22 02:51 Albumin 3.4 g/dL (3.9-5) L 03/04/22 02:51 Albumin/Globulin Ratio 0.7 % 03/04/22 02:51 Urine Color Yellow (Yellow) 03/04/22 17:35 Urine Turbidity Slightly-cloudy (Clear) 03/04/22 17:35 Urine pH 6.0 (5.0-7.0) 03/04/22 17:35 Ur Specific [place] 1.008 (1.003-1.030) 03/04/22 17:35 Urine Protein <15 mg/dl mg/dL (Negative) 03/04/22 17:35 Urine Glucose (UA) Neg mg/dL (Negative) 03/04/22 17:35 Urine Ketones Neg mg/dL (Negative) 03/04/22 17:35 Urine Blood Mod (Negative) 03/04/22 17:35 Urine Nitrite Neg (Negative) 03/04/22 17:35 Urine Bilirubin Neg (Negative) 03/04/22 17:35 Urine Urobilinogen < 2.0 mg/dL (<2.0) 03/04/22 17:35 Ur Leukocyte Esterase Lg (Negative) 03/04/22 17:35 Urine WBC (Auto) 11.0 /HPF (0.0-6.0) H 03/04/22 17:35 Urine RBC (Auto) 2.0 /HPF (0.0-6.0) 03/04/22 17:35 U Epithel Cells (Auto) 1.0 /HPF (0-13.0) 03/04/22 17:35 Urine Bacteria (Auto) 1+ /HPF (Negative) 03/04/22 17:35 Urine Mucus Few /HPF 03/04/22 17:35 Urine Yeast (Budding) Few /HPF 03/04/22 17:35 Urine Creatinine 41.2 mg/dL (0.1-20.0) H 03/04/22 17:35 Urine Sodium 126 mmol/L 03/04/22 17:35 Urine Total Protein 16 mg/dL (5-11.8) H 03/04/22 17:35 Coronavirus (PCR) Negative (Negative) 03/04/22 09:57 Gale/IV: Voiding Method External Female Catheter Active Medications - Current Medications Current Medications: Generic Name Dose Route Start Last Admin Trade Name Freq PRN Reason Stop Dose Admin Acetaminophen 650 mg 03/03/22 20:28 Acetaminophen 325 Mg Tab PO Q4H PRN Pain MILD(1-3)/Fever >100.5/HOFFMAN Famotidine 10 mg 03/03/22 22:00 03/04/22 21:42 Famotidine 20 Mg/2 Ml Inj IV 10 mg BID VERN Administration Furosemide 40 mg 03/03/22 21:30 03/05/22 06:21 Furosemide 40 Mg/4 Ml Inj IV 40 mg 0600,1800 VERN Administration Heparin Sodium (Porcine) 5,000 unit 03/04/22 14:00 03/05/22 06:21 Heparin 5,000 Unit/1 Ml Vial SUB-Q 5,000 unit Q8HR VERN Administration Metoclopramide HCl 10 mg 03/03/22 20:28 Metoclopramide 10 Mg/2 Ml Inj IV Q6H PRN Nausea And Vomiting Morphine Sulfate 2 mg 03/03/22 20:28 Morphine 2 Mg/1 Ml Inj IV Q4H PRN Pain, Moderate (4-6) Ondansetron HCl 4 mg 03/03/22 20:28 Ondansetron 4 Mg/2 Ml Inj IV Q8H PRN Nausea And Vomiting Oxycodone/Acetaminophen 1 tab 03/03/22 20:28 Oxycodone /Acetaminophen 5-325mg Tab PO Q6H PRN Pain, Moderate (4-6) Sodium Chloride 10 ml 03/03/22 22:00 03/04/22 21:43 Sodium Chloride 0.9% 10 Ml Flush Syringe IV 10 ml BID VERN Administration Sodium Chloride 10 ml 03/03/22 20:28 Sodium Chloride 0.9% 10 Ml Flush Syringe IV PRN PRN LINE FLUSH
--- NOTE | 2022-03-05 09:11 | Progress Note ---
Assessment and Plan Acute on chronic diastolic heart failure Severe pulmonary hypertension with evidence of severe right ventricular and right atrial enlargement on echo. Morbid obesity Obstructive sleep apnea Chronic renal failure Status post left knee excision, bedridden status. Continue IV diuresis. Fluid restriction to 1.5 L/day. Obtain lower extremity venous Doppler to rule out DVT. Prognosis is guarded. Subjective Date of service: 03/05/22 Principal diagnosis: Hypoxic respiratory failure Interval history: Patient continues to be significantly short of breath despite IV diuresis. No events recorded on telemetry. She is still on BiPAP with an FiO2 of 60% this morning. Objective Vital Signs Temp Pulse Resp BP BP Pulse Ox 03/05/22 03:52 97.4 F L 88 19 117/63 94 03/04/22 23:30 102 H 03/04/22 23:21 88 22 93 03/04/22 22:54 97.6 F 96 H 22 119/53 87 03/04/22 22:00 95 03/04/22 20:40 96 H 29 H 121/64 91 03/04/22 20:30 93 H 27 H 121/58 90 03/04/22 20:20 96 H 29 H 130/63 90 03/04/22 20:10 97 H 22 130/63 94 03/04/22 20:00 94 H 27 H 116/64 90 03/04/22 19:50 96 H 28 H 124/52 91 03/04/22 19:40 94 H 27 H 124/52 92 03/04/22 19:30 104 H 21 120/64 93 03/04/22 19:20 26 H 130/62 90 03/04/22 19:10 94 H 26 H 130/62 87 03/04/22 19:00 92 H 25 H 139/65 89 03/04/22 18:50 30 H 127/73 85 03/04/22 18:40 97 H 27 H 127/73 92 03/04/22 18:30 129/58 92 03/04/22 18:20 88 14 128/63 92 03/04/22 18:10 88 26 H 128/63 91 03/04/22 18:00 92 H 28 H 122/69 92 03/04/22 17:50 89 22 126/71 93 03/04/22 17:40 87 17 126/71 89 03/04/22 17:30 88 12 135/71 92 07/15/22 17:20 88 21 123/62 92 03/04/22 17:10 90 20 123/62 93 03/04/22 17:00 85 20 130/65 90 03/04/22 16:50 89 24 125/60 93 03/04/22 16:40 87 21 125/60 93 03/04/22 16:30 87 26 H 123/66 92 03/04/22 16:20 87 13 120/65 93 03/04/22 16:10 86 20 120/65 93 03/04/22 16:00 88 24 135/67 92 03/04/22 15:50 94 H 22 126/66 93 03/04/22 15:40 88 27 H 126/66 90 03/04/22 15:30 90 27 H 121/62 91 03/04/22 15:20 88 16 118/58 92 03/04/22 15:10 89 11 L 118/58 93 03/04/22 15:00 29 H 124/59 95 03/04/22 14:50 15 108/60 92 03/04/22 14:40 108/60 93 03/04/22 14:30 108/54 95 03/04/22 14:20 100/61 93 03/04/22 14:10 100/61 95 03/04/22 14:00 108/64 94 03/04/22 13:50 115/62 94 03/04/22 13:40 115/62 94 03/04/22 13:30 105/58 94 03/04/22 13:20 119/60 93 03/04/22 13:10 119/60 93 03/04/22 13:00 119/62 93 03/04/22 12:50 116/65 93 03/04/22 12:40 116/65 92 03/04/22 12:26 84 19 112/62 95 03/04/22 09:35 86 24 102/57 90 - Physical Examination HEENT: Positive: PERRL Neck: Positive: neck supple Cardiac: Positive: Reg Rate and Rhythm Lungs: Positive: Ventilated Respirations Neuro: Positive: Grossly Intact Abdomen: Positive: Soft Skin: Positive: Clear Extremities: Present: edema (Minimal) - Imaging and Cardiology EKG: report reviewed (Sinus tachycardia no acute ST-T wave changes)
--- NOTE | 2022-03-05 09:31 | Progress Note ---
Assessment and Plan - Patient Problems (1) Chronic kidney disease, stage 3b Current Visit: Yes Status: Acute Plan to address problem: patient has known underlying CKD, most likely secondary to hypertensive nephrosclerosis. Compared to previous labs, pt appears to be at her baseline. Cont supportive care for CKD, avoid nephrotoxins, NSAIDs, IV contrast. Will check UA, urine lytes, urine protein/cr ratio (2) Hypertensive chronic kidney disease with stage 1 through stage 4 chronic kidney disease, or unspecified chronic kidney disease Current Visit: Yes Status: Acute Plan to address problem: monitor BP on current meds (3) Acute exacerbation of congestive heart failure Current Visit: Yes Status: Acute Qualifiers: Heart failure type: combined systolic and diastolic Qualified Code(s): I50.43 - Acute on chronic combined systolic (congestive) and diastolic (congestive) heart failure Plan to address problem: cont IV lasix, cont 2g Na diet, fluid restriction to 1.2L/day. strict I/Os, daily weight. Target net negative fluid balance to >1L/day. Echo result reviewed, showing severe cor pulmonale (4) Acute respiratory failure with hypoxia Current Visit: Yes Status: Acute Plan to address problem: started on IV lasix for volume control, cont supplemental O2 via NC Subjective Date of service: 03/05/22 Principal diagnosis: Hypoxic respiratory failure Interval history: Patient is awake, alert, in no acute distress, improved respiratory status on IV diuresis Objective - Vital Signs Vital signs: Vital Signs - 12hr 03/04/22 03/04/22 03/04/22 22:00 22:54 23:21 Temperature 97.6 F Pulse Rate 96 H 88 Respiratory 22 22 Rate Blood Pressure 119/53 O2 Sat by Pulse 95 87 93 Oximetry 03/04/22 03/05/22 23:30 03:52 Temperature 97.4 F L Pulse Rate 102 H 88 Respiratory 19 Rate Blood Pressure 117/63 O2 Sat by Pulse 94 Oximetry - General Appearance General appearance: well-developed, well-nourished, appears stated age, obese EENT: ATNC, PERRL, mucous membranes moist Neck: no JVD Respiratory: Present: Decreased Breath Sounds Cardiology: regular, S1S2 Gastrointestinal: normoactive bowel sounds, obese Integumentary: no rash Neurologic: no focal deficit, alert and oriented x3, strength 5/5, CN 3-12 intact - Lab 03/04/22 03:05 07/15/22 02:51 Most recent lab results Calcium 9.4 mg/dL (8.4-10.2) 03/04/22 02:51 Urine Creatinine 41.2 mg/dL (0.1-20.0) H 03/04/22 17:35 Urine Sodium 126 mmol/L 03/04/22 17:35 Urine Total Protein 16 mg/dL (5-11.8) H 03/04/22 17:35 Medications & Allergies - Medications Allergies/Adverse Reactions: Allergies iodine Allergy (Verified 03/03/22 12:49) Anaphylaxis Penicillins Allergy (Verified 03/03/22 12:49) Anaphylaxis shellfish derived Allergy (Verified 03/03/22 12:49) Anaphylaxis Home Medications: Home Medications Medication Instructions Recorded Confirmed Last Taken Type Acetaminophen [Non-Aspirin Extra 500 mg PO Q8HR PRN 03/04/22 03/04/22 03/01/22 History Strength] Aspirin EC 325 mg PO 4XW 03/04/22 03/04/22 03/02/22 History Hydrocodone-Acetamin 2.5-325 5 - 325 mg PO Q6HR PRN 03/04/22 03/04/22 03/02/22 History Mucus Relief ER 600 mg PO BID 03/04/22 03/05/22 03/02/22 History Omeprazole 40 mg PO DAILY 03/04/22 03/05/22 03/02/22 History Phenazopyridine 200 mg PO TID 03/04/22 03/04/22 03/03/22 History Senna Plus Tablet 8.6 - 50 mg PO BID MDD CONSTIPATION 03/04/22 03/05/22 03/02/22 History Diclofenac Sodium ER 75 mg PO Q8HR 03/05/22 03/05/22 03/02/22 History Nifedipine ER 60 mg PO DAILY 03/05/22 03/05/22 03/02/22 History Vitamin D3 25 mg PO DAILY 03/05/22 03/05/22 03/02/22 History Active Medications: Generic Name Dose Route Start Last Admin Trade Name Freq PRN Reason Stop Dose Admin Acetaminophen 650 mg 03/03/22 20:28 Acetaminophen 325 Mg Tab PO Q4H PRN Pain MILD(1-3)/Fever >100.5/HOFFMAN Famotidine 10 mg 03/03/22 22:00 03/04/22 21:42 Famotidine 20 Mg/2 Ml Inj IV 10 mg BID VERN Administration Furosemide 40 mg 03/03/22 21:30 03/05/22 06:21 Furosemide 40 Mg/4 Ml Inj IV 40 mg 0600,1800 VERN Administration Heparin Sodium (Porcine) 5,000 unit 03/04/22 14:00 03/05/22 06:21 Heparin 5,000 Unit/1 Ml Vial SUB-Q 5,000 unit Q8HR VERN Administration Metoclopramide HCl 10 mg 03/03/22 20:28 Metoclopramide 10 Mg/2 Ml Inj IV Q6H PRN Nausea And Vomiting Morphine Sulfate 2 mg 03/03/22 20:28 Morphine 2 Mg/1 Ml Inj IV Q4H PRN Pain, Moderate (4-6) Ondansetron HCl 4 mg 03/03/22 20:28 Ondansetron 4 Mg/2 Ml Inj IV Q8H PRN Nausea And Vomiting Oxycodone/Acetaminophen 1 tab 03/03/22 20:28 Oxycodone /Acetaminophen 5-325mg Tab PO Q6H PRN Pain, Moderate (4-6) Sodium Chloride 10 ml 03/03/22 22:00 03/04/22 21:43 Sodium Chloride 0.9% 10 Ml Flush Syringe IV 10 ml BID VERN Administration Sodium Chloride 10 ml 03/03/22 20:28 Sodium Chloride 0.9% 10 Ml Flush Syringe IV PRN PRN LINE FLUSH
[2022-03-05] MEDS: FAMOTIDINE 20 MG/2 ML INJ IV SCH ×2 (10:57→22:33)
--- NOTE | 2022-03-05 11:53 | Consultation ---
History of Present Illness Consult date: 03/05/22 Requesting physician: KELLI CONTRERAS Reason for consult: pulmonary hypertension, obstructive sleep apnea, other (hypoxemia) History of present illness: 71 y/o morbidly obese female found to have severe pulm HTN and worsening respiratory failure. Consulted by IMS today secondary to the prior diagnosis listed. Patient has known KIKA and was being followed by Dr. Naik, however she was on hospice care secondary to CHF and [facility] had [facility] managing her KIKA. she cannot remember the last time she was in our office. Per patient she has been discharged from hospice and now is not sure who will follow her. She states that she wears her bipap nightly and PRN during the day religiously. She has been admitted since 03/03. She is on 5 liters at home and was on 6 here, then HFNC and then bipap last night. currently she is on a venti mask now and states that she feels much better. She has been getting diuresed since admission. Past History Past Medical History: diabetes, hypertension, other (Severe obesity with obstructive sleep apnea) Past Surgical History: Other Social history: denies: smoking, alcohol abuse, prescription drug abuse, IV drug use Family history: hypertension Medications and Allergies Allergies Allergy/AdvReac Type Severity Reaction Status Date / Time iodine Allergy Anaphylaxis Verified 03/03/22 12:49 Penicillins Allergy Anaphylaxis Verified 03/03/22 12:49 shellfish derived Allergy Anaphylaxis Verified 03/03/22 12:49 Home Medications Medication Instructions Recorded Confirmed Last Taken Type Acetaminophen [Non-Aspirin Extra 500 mg PO Q8HR PRN 03/04/22 03/04/22 03/01/22 H istory Strength] Aspirin EC 325 mg PO 4XW 03/04/22 03/04/22 03/02/22 History Hydrocodone-Acetamin 2.5-325 5 - 325 mg PO Q6HR PRN 03/04/22 03/04/22 03/02/22 History Mucus Relief ER 600 mg PO BID 03/04/22 03/05/22 03/02/22 History Omeprazole 40 mg PO DAILY 03/04/22 03/05/22 03/02/22 History Phenazopyridine 200 mg PO TID 03/04/22 03/04/22 03/03/22 History Senna Plus Tablet 8.6 - 50 mg PO BID MDD CONSTIPATION 03/04/22 03/05/22 03/02/22 History Diclofenac Sodium ER 75 mg PO Q8HR 03/05/22 03/05/22 03/02/22 History Nifedipine ER 60 mg PO DAILY 03/05/22 03/05/22 03/02/22 History Vitamin D3 25 mg PO DAILY 03/05/22 03/05/22 03/02/22 History Active Meds: Active Medications Acetaminophen (Acetaminophen 325 Mg Tab) 650 mg PO Q4H PRN PRN Reason: Pain MILD(1-3)/Fever >100.5/HOFFMAN Famotidine (Famotidine 20 Mg/2 Ml Inj) 10 mg IV BID [facility] Last Admin: 03/05/22 10:57 Dose: 10 mg Furosemide (Furosemide 40 Mg/4 Ml Inj) 40 mg IV 0600,1800 [facility] Last Admin: 03/05/22 06:21 Dose: 40 mg Heparin Sodium (Porcine) (Heparin 5,000 Unit/1 Ml Vial) 5,000 unit SUB-Q Q8HR [facility] Last Admin: 03/05/22 06:21 Dose: 5,000 unit Metoclopramide HCl (Metoclopramide 10 Mg/2 Ml Inj) 10 mg IV Q6H PRN PRN Reason: Nausea And Vomiting Morphine Sulfate (Morphine 2 Mg/1 Ml Inj) 2 mg IV Q4H PRN PRN Reason: Pain, Moderate (4-6) Ondansetron HCl (Ondansetron 4 Mg/2 Ml Inj) 4 mg IV Q8H PRN PRN Reason: Nausea And Vomiting Oxycodone/Acetaminophen (Oxycodone /Acetaminophen 5-325mg Tab) 1 tab PO Q6H PRN PRN Reason: Pain, Moderate (4-6) Sodium Chloride (Sodium Chloride 0.9% 10 Ml Flush Syringe) 10 ml IV BID [facility] Last Admin: 03/05/22 11:02 Dose: 10 ml Sodium Chloride (Sodium Chloride 0.9% 10 Ml Flush Syringe) 10 ml IV PRN PRN PRN Reason: LINE FLUSH Review of Systems All systems: negative Physical Examination Vital signs: Vital Signs Temp Pulse Resp BP Pulse Ox 98.4 F 82 20 156/86 92 03/03/22 12:43 03/03/22 12:43 03/03/22 12:43 03/03/22 12:43 03/03/22 12:43 General appearance: no acute distress, alert Eyes: non-icteric ENT: oropharynx moist Neck: supple, other (large in circumference) Effort: mildly labored Ascultation: Bilateral: rales Percussion: Bilateral: not dull Cardiovascular: regular rate and rhythm Gastrointestinal: normoactive bowel sounds, soft Results - Laboratory Findings CBC and BMP: 03/04/22 03:05 03/04/22 02:51 Abnormal lab findings: Abnormal Labs 03/03/22 03/03/22 03/03/22 13:34 13:34 13:34 RDW 16.1 H Lymph % (Auto) 9.7 L Lymph # (Auto) 0.8 L Seg Neutrophils % 84.6 H BUN 47 H Creatinine 1.7 H Glucose 101 H ALT NT-Pro-B Natriuret Pep 15012 H Total Protein 9.1 H Albumin 3.5 L Urine WBC (Auto) Urine Creatinine Urine Total Protein 03/04/22 03/04/22 03/04/22 02:51 03:05 17:35 RDW 16.0 H Lymph % (Auto) 8.9 L Lymph # (Auto) 0.8 L Seg Neutrophils % 84.1 H BUN 46 H Creatinine 1.8 H Glucose 119 H ALT 6 L NT-Pro-B Natriuret Pep Total Protein 8.4 H Albumin 3.4 L Urine WBC (Auto) 11.0 H Urine Creatinine Urine Total Protein 03/04/22 17:35 RDW Lymph % (Auto) Lymph # (Auto) Seg Neutrophils % BUN Creatinine Glucose ALT NT-Pro-B Natriuret Pep Total Protein Albumin Urine WBC (Auto) Urine Creatinine 41.2 H Urine Total Protein 16 H - Diagnostic Findings Chest x-ray: image reviewed Assessment and Plan 71 y/o female with severe pulm htn and Kika with acute on chronic respiratory failure. 1. Cardiology following. This degree of Pulm HTN is not seen with just KIKA alone, especially in someone who is compliant with therapy. Defer to cards but would consider right heart cath if not already done previously 2. Continue bipap therapy at night as well as PRN during the day. Patient does not know her settings for her machine at home and my office did not manipulate these numbers last. Will titrate sat of >88% and comfort 3. Agree with continued diuresis, CXR shows continued vascular congestion, maybe slightly better, maybe 4. Wean FiO2 for sats >88%
--- NOTE | 2022-03-05 12:28 | XRay Report ---
CHEST 1 VIEW 03/05/2022 11:55 AM INDICATION / CLINICAL INFORMATION: Worsening Hypoxemia. COMPARISON: 03/03/2022 FINDINGS: SUPPORT DEVICES: None. HEART / MEDIASTINUM: There is enlargement of the cardiac silhouette LUNGS / PLEURA: There are increase in the interstitial markings bilaterally. No significant change. N o pneumothorax. ADDITIONAL FINDINGS: No significant additional findings. IMPRESSION: 1. No significant change. Prominence of the cardiac silhouette and increase in interstitial markings characteristic of congestive heart failure/edema. Signer Name: Keo Wong MD Signed: 03/05/2022 12:23 PM Workstation Name: [id number]
[2022-03-05 13:25] LABS: Calcium 9.1 mg/dL (8.4-10.2)
[2022-03-05] MEDS ORDERED: DEXTROSE 50% IN WATER (25GM) 50 ML SYRINGE IV ONE (13:53)
[2022-03-05] MEDS ORDERED: SODIUM POLYSTYRENE 15 GM/60 ML ORAL LIQD PO ONE (13:53)
[2022-03-05] MEDS ORDERED: INSULIN REGULAR, HUMAN 100 UNITS/1 ML IV ONE (13:53)
--- NOTE | 2022-03-05 13:59 | Progress Note ---
Assessment and Plan Assessment and plan: #Severe pulmonary hypertension #Acute on chronic hypoxic respiratory failure - etiology: Heart failure exacerbation. - baseline oxygen requirements: 5 L nasal cannula - supplemental oxygen: BiPAP Pulmonology consulted; appreciate recs. Recommending right heart catheterization when possible. - Continue protocol: continue pulse oximetry, wean oxygen as tolerated, ordered incentive spirometry and educated patient on how to use it and its importance. Continue IV Lasix 40 mg twice daily for volume reduction. - continue to monitor #Acute on chronic heart failureruled out - Continue CHF exacerbation protocol: Telemetry, Strict I/O, monitor urine o utput every shift, daily weights, afterload reduction, low-sodium diet, and fluid restriction of approximately 1.5 mL/day, IV Lasix 40 mg twice daily - Supplemental oxygen: 8 L nasal cannula - ProBNP on admission: ,875 - Cardiology consulted; appreciate recs - TTE (03/04/2022) revealing EF 50-55% with normal-sized LV, lower limits of normal LV systolic function, borderline concentric LVH, severely dilated RV, severely reduced RV systolic function, mildly dilated LA, severely dilated RA, RVSP >95 mmHg, and severe pulmonary hypertension. - Continue to monitor #Hyperkalemia Potassium 6.4 Pending EKG. Ordering calcium gluconate 1 g x 1, Kayexalate 60 mg x 1, IV regular insulin 8 units, and D50. Pending repeat BMP. Continue to monitor. #Atypical chest painruled out Negative troponin x2 Likely secondary to volume overload in the setting of acute heart failure. #CKD stage III Creatinine 1.8 (baseline unknown) Renally dose meds and avoid nephrotoxic drugs. Nephrology consulted; appreciate recs #Mild protein caloric malnutrition Albumin 3.4 Starting dietary supplementation #Morbid obesity #Weight loss counseling #Exercise counseling - BMI 53.1 - Counseled patient on the importance of weight loss, incorporating exercise, and dietary changes (lean meats, fresh fruits and vegetables, and water intake). Patient expresses understanding. - Time: +15 min Critical Care Billing: The high probability of a clinically significant, sudden or life threatening deterioration of the [renal] system(s) required my full and direct attention, intervention and personal management. The aggregate critical care time was [60] minutes. This time is in addition to time spent performing reported procedures but includes the following: [x] Data Review and interpretation [x] Patient assessment and monitoring of vital signs [x] Documentation [x] Medication orders and management Disposition Plan: Continue medical management Total Time Spent with Patient (Minutes): 45 minutes History Interval history: No acute events overnight. Hospitalist Physical - Constitutional Vitals: Temp Pulse Resp BP Pulse Ox 97.4 F L 88 19 117/63 94 03/05/22 03:52 03/05/22 03:52 03/05/22 03:52 03/05/22 03:52 03/05/22 03:52 General appearance: Present: mild distress, well-nourished, obese - EENT Eyes: Present: PERRL, EOM intact ENT: hearing intact, clear oral mucosa, dentition normal - Neck Neck: Present: supple, normal ROM - Respiratory Respiratory effort: normal Respiratory: bilateral: diminished (5 L nasal cannula) - Cardiovascular Rhythm: regular Heart Sounds: Present: S1 & S2 - Extremities Extremities: no ischemia, pulses intact, pulses symmetrical, normal temperature, normal color Extremity abnormal: edema (There is edema bilateral lower extremities) Peripheral Pulses: within normal limits - Abdominal General gastrointestinal: soft, non-tender, non-distended, normal bowel sounds - Integumentary Integumentary: Present: clear, warm, dry - Psychiatric Psychiatric: appropriate mood/affect, cooperative - Neurologic Neurologic: CNII-XII intact - Allied Health Allied health notes reviewed: nursing HEART Score - HEART Score Age: > 65 Risk factors: 1-2 risk factors Troponin: Troponin T < 0.010 ng/mL (0.00-0.029) 03/03/22 13:34 Troponin: < normal limit - Critical Actions Critical Actions: 4-6 pts:12-16.6% risk of adverse cardiac event. Should be admitted Results - Labs CBC & Chem 7: 03/04/22 03:05 03/05/22 12:08 Labs: Laboratory Last Values WBC 8.5 K/mm3 (4.5-11.0) 03/04/22 03:05 RBC 4.39 M/mm3 (3.65-5.03) 03/04/22 03:05 Hgb 12.7 gm/dl (10.1-14.3) 03/04/22 03:05 Hct 40.5 % (30.3-42.9) 03/04/22 03:05 MCV 92 fl (79-97) 03/04/22 03:05 MCH 29 pg (28-32) 03/04/22 03:05 MCHC 31 % (30-34) 03/04/22 03:05 RDW 16.0 % (13.2-15.2) H 03/04/22 03:05 Plt Count 208 K/mm3 (140-440) 03/04/22 03:05 Lymph % (Auto) 8.9 % (13.4-35.0) L 03/04/22 03:05 [place] % (Auto) 4.9 % (0.0-7.3) 03/04/22 03:05 Eos % (Auto) 1.8 % (0.0-4.3) 03/04/22 03:05 Baso % (Auto) 0.3 % (0.0-1.8) 03/04/22 03:05 Lymph # (Auto) 0.8 K/mm3 (1.2-5.4) L 03/04/22 03:05 Vernon # (Auto) 0.4 K/mm3 (0.0-0.8) 03/04/22 03:05 Eos # (Auto) 0.2 K/mm3 (0.0-0.4) 03/04/22 03:05 Baso # (Auto) 0.0 K/mm3 (0.0-0.1) 03/04/22 03:05 Seg Neutrophils % 84.1 % (40.0-70.0) H 03/04/22 03:05 Seg Neutrophils # 7.2 K/mm3 (1.8-7.7) 03/04/22 03:05 Sodium 141 mmol/L (137-145) 03/05/22 12:08 Potassium 6.4 mmol/L (3.6-5.0) H* D 03/05/22 12:08 Chloride 101.3 mmol/L (98-107) 03/05/22 12:08 Carbon Dioxide 27 mmol/L (22-30) 03/05/22 12:08 Anion Gap 19 mmol/L 03/05/22 12:08 BUN 55 mg/dL (7-17) H 03/05/22 12:08 Creatinine 2.0 mg/dL (0.6-1.2) H 03/05/22 12:08 Estimated GFR 30 ml/min 03/05/22 12:08 BUN/Creatinine Ratio 28 % 03/05/22 12:08 Glucose 120 mg/dL (65-100) H 03/05/22 12:08 Calcium 9.1 mg/dL (8.4-10.2) 03/05/22 12:08 Total Bilirubin 0.60 mg/dL (0.1-1.2) 03/04/22 02:51 AST 12 units/L (5-40) 03/04/22 02:51 ALT 6 units/L (7-56) L 03/04/22 02:51 Alkaline Phosphatase 91 units/L (35-129) 03/04/22 02:51 Troponin T < 0.010 ng/mL (0.00-0.029) 03/03/22 13:34 NT-Pro-B Natriuret Pep 18973 pg/mL (0-900) H 03/03/22 13:34 Total Protein 8.4 g/dL (6.3-8.2) H 03/04/22 02:51 Albumin 3.4 g/dL (3.9-5) L 03/04/22 02:51 Albumin/Globulin Ratio 0.7 % 03/04/22 02:51 Urine Color Yellow (Yellow) 03/04/22 17:35 Urine Turbidity Slightly-cloudy (Clear) 03/04/22 17:35 Urine pH 6.0 (5.0-7.0) 03/04/22 17:35 Ur Specific [place] 1.008 (1.003-1.030) 03/04/22 17:35 Urine Protein <15 mg/dl mg/dL (Negative) 03/04/22 17:35 Urine Glucose (UA) Neg mg/dL (Negative) 03/04/22 17:35 Urine Ketones Neg mg/dL (Negative) 03/04/22 17:35 Urine Blood Mod (Negative) 03/04/22 17:35 Urine Nitrite Neg (Negative) 03/04/22 17:35 Urine Bilirubin Neg (Negative) 03/04/22 17:35 Urine Urobilinogen < 2.0 mg/dL (<2.0) 03/04/22 17:35 Ur Leukocyte Esterase Lg (Negative) 03/04/22 17:35 Urine WBC (Auto) 11.0 /HPF (0.0-6.0) H 03/04/22 17:35 Urine RBC (Auto) 2.0 /HPF (0.0-6.0) 03/04/22 17:35 U Epithel Cells (Auto) 1.0 /HPF (0-13.0) 03/04/22 17:35 Urine Bacteria (Auto) 1+ /HPF (Negative) 03/04/22 17:35 Urine Mucus Few /HPF 03/04/22 17:35 Urine Yeast (Budding) Few /HPF 03/04/22 17:35 Urine Creatinine 41.2 mg/dL (0.1-20.0) H 03/04/22 17:35 Urine Sodium 126 mmol/L 03/04/22 17:35 Urine Total Protein 16 mg/dL (5-11.8) H 03/04/22 17:35 Coronavirus (PCR) Negative (Negative) 03/04/22 09:57 Gale/IV: Voiding Method External Female Catheter Active Medications - Current Medications Current Medications: Generic Name Dose Route Start Last Admin Trade Name Freq PRN Reason Stop Dose Admin Acetaminophen 650 mg 03/03/22 20:28 Acetaminophen 325 Mg Tab PO Q4H PRN Pain MILD(1-3)/Fever >100.5/HOFFMAN Famotidine 10 mg 03/03/22 22:00 03/05/22 10:57 Famotidine 20 Mg/2 Ml Inj IV 10 mg BID VERN Administration Furosemide 20 mg 03/05/22 13:54 Furosemide 40 Mg/4 Ml Inj IV 0600,1800 [facility] Heparin Sodium (Porcine) 5,000 unit 03/04/22 14:00 03/05/22 06:21 Heparin 5,000 Unit/1 Ml Vial SUB-Q 5,000 unit Q8HR VERN Administration Metoclopramide HCl 10 mg 03/03/22 20:28 Metoclopramide 10 Mg/2 Ml Inj IV Q6H PRN Nausea And Vomiting Morphine Sulfate 2 mg 03/03/22 20:28 Morphine 2 Mg/1 Ml Inj IV Q4H PRN Pain, Moderate (4-6) Ondansetron HCl 4 mg 03/03/22 20:28 Ondansetron 4 Mg/2 Ml Inj IV Q8H PRN Nausea And Vomiting Oxycodone/Acetaminophen 1 tab 03/03/22 20:28 Oxycodone /Acetaminophen 5-325mg Tab PO Q6H PRN Pain, Moderate (4-6) Sodium Chloride 10 ml 03/03/22 22:00 03/05/22 11:02 Sodium Chloride 0.9% 10 Ml Flush Syringe IV 10 ml BID VERN Administration Sodium Chloride 10 ml 03/03/22 20:28 Sodium Chloride 0.9% 10 Ml Flush Syringe IV PRN PRN LINE FLUSH
[2022-03-05] MEDS ORDERED: CALCIUM GLUCONATE 1,000 MG in SODIUM CHLORIDE 0.9% 100 ML IV ONE (15:00)
[2022-03-05 16:00] LABS: Calcium 9.1 mg/dL (8.4-10.2)
[2022-03-06] MEDS: ACETAMINOPHEN 325 MG TAB PO PRN (04:29)
[2022-03-06] MEDS: HEPARIN 5,000 UNIT/1 ML VIAL SUB-Q SCH ×3 (05:22→22:30)
[2022-03-06] MEDS: FUROSEMIDE 40 MG/4 ML INJ IV SCH ×2 (05:22→17:13)
[2022-03-06 06:17] LABS: Calcium 9.1 mg/dL (8.4-10.2)
--- NOTE | 2022-03-06 09:09 | Progress Note ---
Assessment and Plan - Patient Problems (1) Chronic kidney disease, stage 3b Current Visit: Yes Status: Acute Plan to address problem: patient has known underlying CKD, most likely secondary to hypertensive nephrosclerosis. Compared to previous labs (baseline Cr around 1.8-2), pt appears to be at her baseline. Cont supportive care for CKD, avoid nephrotoxins, NSAIDs, IV contrast. (2) Hypertensive chronic kidney disease with stage 1 through stage 4 chronic kidney disease, or unspecified chronic kidney disease Current Visit: Yes Status: Acute Plan to address problem: monitor BP on current meds (3) Acute exacerbation of congestive heart failure Current Visit: Yes Status: Acute Qualifiers: Heart failure type: combined systolic and diastolic Qualified Code(s): I50.43 - Acute on chronic combined systolic (congestive) and diastolic (congestive) heart failure Plan to address problem: cont IV lasix, cont 2g Na diet, fluid restriction to 1.2L/day. strict I/Os, daily weight. Target net negative fluid balance to >1L/day. Echo result reviewed, showing severe cor pulmonale (4) Acute respiratory failure with hypoxia Current Visit: Yes Status: Acute Plan to address problem: started on IV lasix for volume control, cont supplemental O2 via NC Subjective Date of service: 03/06/22 Principal diagnosis: Hypoxic respiratory failure Interval history: Patient is awake, alert, in no acute distress, denies fever, chills, n/v/d, CP, dysuria. improved respiratory status on supplemental O2, IV diuresis Objective - Vital Signs Vital signs: Vital Signs - 12hr 03/05/22 03/05/22 03/05/22 22:00 22:10 23:00 Temperature Pulse Rate 89 95 H Respiratory 21 26 H Rate Blood Pressure Blood Pressure [Left] O2 Sat by Pulse 93 94 Oximetry 03/05/22 03/06/22 03/06/22 23:15 04:23 05:37 Temperature 98.5 F 98.1 F Pulse Rate 84 91 H Respiratory 22 22 Rate Blood Pressure 119/59 153/75 Blood Pressure 127/65 [Left] O2 Sat by Pulse 92 94 Oximetry - General Appearance General appearance: well-developed, well-nourished, appears stated age, obese EENT: ATNC, PERRL, mucous membranes moist Neck: no JVD Respiratory: Present: Decreased Breath Sounds Cardiology: regular, S1S2 Gastrointestinal: obese Integumentary: no rash, hyperpigmentation, chronic venous stasis, other (no pitting edema ) Neurologic: no focal deficit, alert and oriented x3, strength 5/5, CN 3-12 intact Psychiatric: mood/affect appropriate, cooperative - Lab 03/04/22 03:05 03/06/22 05:25 Most recent lab results Calcium 9.1 mg/dL (8.4-10.2) 03/06/22 05:25 Urine Creatinine 41.2 mg/dL (0.1-20.0) H 03/04/22 17:35 Urine Sodium 126 mmol/L 03/04/22 17:35 Urine Total Protein 16 mg/dL (5-11.8) H 03/04/22 17:35 Medications & Allergies - Medications Allergies/Adverse Reactions: Allergies iodine Allergy (Verified 03/03/22 12:49) Anaphylaxis Penicillins Allergy (Verified 03/03/22 12:49) Anaphylaxis shellfish derived Allergy (Verified 03/03/22 12:49) Anaphylaxis Home Medications: Home Medications Medication Instructions Recorded Confirmed Last Taken Type Acetaminophen [Non-Aspirin Extra 500 mg PO Q8HR PRN 03/04/22 03/04/22 03/01/22 History Strength] Aspirin EC 325 mg PO 4XW 03/04/22 03/04/22 03/02/22 History Hydrocodone-Acetamin 2.5-325 5 - 325 mg PO Q6HR PRN 03/04/22 03/04/22 03/02/22 History Mucus Relief ER 600 mg PO BID 03/04/22 03/05/22 03/02/22 History Omeprazole 40 mg PO DAILY 03/04/22 03/05/22 03/02/22 History Phenazopyridine 200 mg PO TID 03/04/22 03/04/22 03/03/22 History Senna Plus Tablet 8.6 - 50 mg PO BID MDD CONSTIPATION 03/04/22 03/05/22 03/02/22 History Diclofenac Sodium ER 75 mg PO Q8HR 03/05/22 03/05/22 03/02/22 History Nifedipine ER 60 mg PO DAILY 03/05/22 03/05/22 03/02/22 History Vitamin D3 25 mg PO DAILY 03/05/22 03/05/22 03/02/22 History Active Medications: Generic Name Dose Route Start Last Admin Trade Name Bessie PRN Reason Stop Dose Admin Acetaminophen 650 mg 03/03/22 20:28 03/06/22 04:29 Acetaminophen 325 Mg Tab PO 650 mg Q4H PRN Administration Pain MILD(1-3)/Fever >100.5/HOFFMAN Famotidine 10 mg 03/03/22 22:00 03/05/22 22:33 Famotidine 20 Mg/2 Ml Inj IV 10 mg BID VERN Administration Furosemide 20 mg 03/05/22 13:54 03/06/22 05:22 Furosemide 40 Mg/4 Ml Inj IV 20 mg 0600,1800 VERN Administration Heparin Sodium (Porcine) 5,000 unit 03/04/22 14:00 03/06/22 05:22 Heparin 5,000 Unit/1 Ml Vial SUB-Q 5,000 unit Q8HR VERN Administration Metoclopramide HCl 10 mg 03/03/22 20:28 03/06/22 04:29 Metoclopramide 10 Mg/2 Ml Inj IV 10 mg Q6H PRN Administration Nausea And Vomiting Morphine Sulfate 2 mg 03/03/22 20:28 Morphine 2 Mg/1 Ml Inj IV Q4H PRN Pain, Moderate (4-6) Ondansetron HCl 4 mg 03/03/22 20:28 Ondansetron 4 Mg/2 Ml Inj IV Q8H PRN Nausea And Vomiting Oxycodone/Acetaminophen 1 tab 03/03/22 20:28 Oxycodone /Acetaminophen 5-325mg Tab PO Q6H PRN Pain, Moderate (4-6) Sodium Chloride 10 ml 03/03/22 22:00 03/05/22 22:33 Sodium Chloride 0.9% 10 Ml Flush Syringe IV 10 ml BID VERN Administration Sodium Chloride 10 ml 03/03/22 20:28 Sodium Chloride 0.9% 10 Ml Flush Syringe IV PRN PRN LINE FLUSH
--- NOTE | 2022-03-06 09:32 | Progress Note ---
Assessment and Plan Acute on chronic diastolic heart failure Severe pulmonary hypertension with evidence of severe right ventricular and right atrial enlargement on echo. Morbid obesity Obstructive sleep apnea Chronic renal failure Creatinine noted to be slightly worsening from 1.8-2.0-2.1 Status post left knee excision, bedridden status. History of deep vein thrombosis in the past. Patient used to take systemic anticoagulation with warfarin, this was stopped when she was enrolled in hospice. Continue IV diuresis. Fluid restriction to 1.5 L/day. Obtain lower extremity venous Doppler to rule out DVT and VQ scan. Prognosis is guarded. Subjective Date of service: 03/06/22 Principal diagnosis: Hypoxic respiratory failure Interval history: Patient describes feeling better this morning. Shortness of breath has improved from yesterday. She is currently on a nonrebreather instead of BiPAP. Objective Vital Signs Temp Pulse Resp BP BP Pulse Ox 03/06/22 05:37 127/65 03/06/22 04:23 98.1 F 91 H 22 153/75 94 03/05/22 23:15 98.5 F 84 22 119/59 92 03/05/22 23:00 95 H 03/05/22 22:10 89 26 H 94 03/05/22 22:00 21 93 03/05/22 20:39 93 03/05/22 19:08 98.5 F 95 H 18 106/63 93 03/05/22 15:00 94 H 03/05/22 12:12 90 18 94 03/05/22 11:01 93 H 20 105/50 97 03/05/22 10:00 20 96 - Physical Examination HEENT: Positive: PERRL Neck: Positive: neck supple Cardiac: Positive: Reg Rate and Rhythm Lungs: Positive: Decreased Breath Sounds Neuro: Positive: Grossly Intact Abdomen: Positive: Soft Skin: Positive: Clear Extremities: Present: edema (Minimal) - Labs and Meds Comprehensive Metabolic Panel 03/05/22 03/05/22 03/06/22 Range/Units 12:08 15:18 05:25 Sodium 141 140 137 (137-145) mmol/L Potassium 6.4 H* D 4.6 D 4.4 (3.6-5.0) mmol/L Chloride 101.3 101.1 99.5 (98-107) mmol/L Carbon Dioxide 27 25 25 (22-30) mmol/L BUN 55 H 55 H 58 H (7-17) mg/dL Creatinine 2.0 H 2.0 H 2.1 H (0.6-1.2) mg/dL Glucose 120 H 116 H 103 H (65-100) mg/dL Calcium 9.1 9.1 9.1 (8.4-10.2) mg/dL - Imaging and Cardiology EKG: report reviewed (Sinus tachycardia no acute ST-T wave changes)
[2022-03-06] MEDS: FAMOTIDINE 20 MG/2 ML INJ IV SCH ×2 (09:36→22:30)
--- NOTE | 2022-03-06 09:50 | Progress Note ---
Assessment and Plan Assessment and plan: #Severe pulmonary hypertension #Acute on chronic hypoxic respiratory failure - etiology: Heart failure exacerbation. - baseline oxygen requirements: 5 L nasal cannula - supplemental oxygen: 15 L Venturi mask Pulmonology consulted; appreciate recs. Recommending right heart catheterization when possible. - Continue protocol: continue pulse oximetry, wean oxygen as tolerated, ordered incentive spirometry and educated patient on how to use it and its importance. Continue IV Lasix 40 mg twice daily for volume reduction. - continue to monitor #Acute on chronic diastolic heart failure - Continue CHF exacerbation protocol: Telemetry, Strict I/O, monitor urine output every shift, daily weights, afterload reduction, low-sodium diet, and fluid restriction of approximately 1.5 mL/day, IV Lasix 40 mg twice daily - Supplemental oxygen: 8 L nasal cannula - ProBNP on admission: ,875 - Cardiology consulted; appreciate recs - TTE (03/04/2022) revealing EF 50-55% with normal-sized LV, lower limits of normal LV systolic function, borderline concentric LVH, severely dilated RV, severely reduced RV systolic function, mildly dilated LA, severely dilated RA, RVSP >95 mmHg, and severe pulmonary hypertension. - Continue to monitor #E. coli cystitis without hematuria - Urinalysis revealing large leukocyte esterase, WBC 11, 1+ bacteria, few budding yeast. - Starting macrobid 100mg q12hrs x 10 days (completes on 03/15/2022) #Hyperkalemiaresolved Potassium 6.4 Pending EKG. Ordering calcium gluconate 1 g x 1, Kayexalate 60 mg x 1, IV regular insulin 8 units, and D50. Pending repeat BMP. Continue to monitor. #Atypical chest painruled out Negative troponin x2 Likely secondary to volume overload in the setting of acute heart failure. #CKD stage III Creatinine 1.8 (baseline 1.8-2.1) Renally dose meds and avoid nephrotoxic drugs. Nephrology consulted; appreciate recs #Mild protein caloric malnutrition Albumin 3.4 Continue dietary supplementation #Morbid obesity #Weight loss counseling #Exercise counseling - BMI 53.1 - Counseled patient on the importance of weight loss, incorporating exercise, and dietary changes (lean meats, fresh fruits and vegetables, and water intake). Patient expresses understanding. - Time: +15 min #Advanced care planning -Disease education conducted, care plan discussed, diagnoses discussed, prognosis discussed, and patient acknowledges understanding with care plan -Time: +30 min Disposition Plan: Continue medical management Total Time Spent with Patient (Minutes): 45 minutes History Interval history: No acute events overnight. Hospitalist Physical - Constitutional Vitals: Temp Pulse Resp BP Pulse Ox 98.1 F 91 H 22 127/65 92 03/06/22 04:23 03/06/22 04:23 03/06/22 04:23 03/06/22 05:37 03/06/22 09:36 General appearance: Present: mild distress, well-nourished, obese - EENT Eyes: Present: PERRL, EOM intact ENT: hearing intact, clear oral mucosa, dentition normal - Neck Neck: Present: supple, normal ROM - Respiratory Respiratory effort: normal Respiratory: bilateral: diminished (on 15L venturi mask) - Cardiovascular Rhythm: regular Heart Sounds: Present: S1 & S2 - Extremities Extremities: no ischemia, pulses intact, pulses symmetrical, No edema, normal t emperature, normal color Extremity abnormal: edema (trace edema of bilateral lower extremities) Peripheral Pulses: within normal limits - Abdominal General gastrointestinal: soft, non-tender, non-distended, normal bowel sounds - Integumentary Integumentary: Present: clear, warm, dry - Psychiatric Psychiatric: appropriate mood/affect, memory intact, cooperative - Neurologic Neurologic: CNII-XII intact, moves all extremities - Allied Health Allied health notes reviewed: nursing HEART Score - HEART Score Age: > 65 Risk factors: 1-2 risk factors Troponin: Troponin T < 0.010 ng/mL (0.00-0.029) 03/03/22 13:34 Troponin: < normal limit - Critical Actions Critical Actions: 4-6 pts:12-16.6% risk of adverse cardiac event. Should be admitted Results - Labs CBC & Chem 7: 03/04/22 03:05 03/06/22 05:25 Labs: Laboratory Last Values WBC 8.5 K/mm3 (4.5-11.0) 03/04/22 03:05 RBC 4.39 M/mm3 (3.65-5.03) 03/04/22 03:05 Hgb 12.7 gm/dl (10.1-14.3) 03/04/22 03:05 Hct 40.5 % (30.3-42.9) 03/04/22 03:05 MCV 92 fl (79-97) 03/04/22 03:05 MCH 29 pg (28-32) 03/04/22 03:05 MCHC 31 % (30-34) 03/04/22 03:05 RDW 16.0 % (13.2-15.2) H 03/04/22 03:05 Plt Count 208 K/mm3 (140-440) 03/04/22 03:05 Lymph % (Auto) 8.9 % (13.4-35.0) L 03/04/22 03:05 [place] % (Auto) 4.9 % (0.0-7.3) 03/04/22 03:05 Eos % (Auto) 1.8 % (0.0-4.3) 03/04/22 03:05 Baso % (Auto) 0.3 % (0.0-1.8) 03/04/22 03:05 Lymph # (Auto) 0.8 K/mm3 (1.2-5.4) L 03/04/22 03:05 [place] # (Auto) 0.4 K/mm3 (0.0-0.8) 03/04/22 03:05 Eos # (Auto) 0.2 K/mm3 (0.0-0.4) 03/04/22 03:05 Baso # (Auto) 0.0 K/mm3 (0.0-0.1) 03/04/22 03:05 Seg Neutrophils % 84.1 % (40.0-70.0) H 03/04/22 03:05 Seg Neutrophils # 7.2 K/mm3 (1.8-7.7) 03/04/22 03:05 Sodium 137 mmol/L (137-145) 03/06/22 05:25 Potassium 4.4 mmol/L (3.6-5.0) 03/06/22 05:25 Chloride 99.5 mmol/L (98-107) 03/06/22 05:25 Carbon Dioxide 25 mmol/L (22-30) 03/06/22 05:25 Anion Gap 17 mmol/L 03/06/22 05:25 BUN 58 mg/dL (7-17) H 03/06/22 05:25 Creatinine 2.1 mg/dL (0.6-1.2) H 03/06/22 05:25 Estimated GFR 28 ml/min 03/06/22 05:25 BUN/Creatinine Ratio 28 % 03/06/22 05:25 Glucose 103 mg/dL (65-100) H 03/06/22 05:25 Calcium 9.1 mg/dL (8.4-10.2) 03/06/22 05:25 Total Bilirubin 0.60 mg/dL (0.1-1.2) 03/04/22 02:51 AST 12 units/L (5-40) 03/04/22 02:51 ALT 6 units/L (7-56) L 03/04/22 02:51 Alkaline Phosphatase 91 units/L (35-129) 03/04/22 02:51 Troponin T < 0.010 ng/mL (0.00-0.029) 03/03/22 13:34 NT-Pro-B Natriuret Pep 06633 pg/mL (0-900) H 03/03/22 13:34 Total Protein 8.4 g/dL (6.3-8.2) H 03/04/22 02:51 Albumin 3.4 g/dL (3.9-5) L 03/04/22 02:51 Albumin/Globulin Ratio 0.7 % 03/04/22 02:51 Urine Color Yellow (Yellow) 03/04/22 17:35 Urine Turbidity Slightly-cloudy (Clear) 03/04/22 17:35 Urine pH 6.0 (5.0-7.0) 03/04/22 17:35 Ur Specific [place] 1.008 (1.003-1.030) 03/04/22 17:35 Urine Protein <15 mg/dl mg/dL (Negative) 03/04/22 17:35 Urine Glucose (UA) Neg mg/dL (Negative) 03/04/22 17:35 Urine Ketones Neg mg/dL (Negative) 03/04/22 17:35 Urine Blood Mod (Negative) 03/04/22 17:35 Urine Nitrite Neg (Negative) 03/04/22 17:35 Urine Bilirubin Neg (Negative) 03/04/22 17:35 Urine Urobilinogen < 2.0 mg/dL (<2.0) 03/04/22 17:35 Ur Leukocyte Esterase Lg (Negative) 03/04/22 17:35 Urine WBC (Auto) 11.0 /HPF (0.0-6.0) H 03/04/22 17:35 Urine RBC (Auto) 2.0 /HPF (0.0-6.0) 03/04/22 17:35 U Epithel Cells (Auto) 1.0 /HPF (0-13.0) 03/04/22 17:35 Urine Bacteria (Auto) 1+ /HPF (Negative) 03/04/22 17:35 Urine Mucus Few /HPF 03/04/22 17:35 Urine Yeast (Budding) Few /HPF 03/04/22 17:35 Urine Creatinine 41.2 mg/dL (0.1-20.0) H 03/04/22 17:35 Urine Sodium 126 mmol/L 03/04/22 17:35 Urine Total Protein 16 mg/dL (5-11.8) H 03/04/22 17:35 Coronavirus (PCR) Negative (Negative) 03/04/22 09:57 Microbiology: Microbiology 03/04/22 17:35 Urine,Clean Catch Urine Culture - Preliminary Gram Negative Yohan Gale/IV: Voiding Method External Female Catheter Active Medications - Current Medications Current Medications: Generic Name Dose Route Start Last Admin Trade Name Freq PRN Reason Stop Dose Admin Acetaminophen 650 mg 03/03/22 20:28 03/06/22 04:29 Acetaminophen 325 Mg Tab PO 650 mg Q4H PRN Administration Pain MILD(1-3)/Fever >100.5/HOFFMAN Famotidine 10 mg 03/03/22 22:00 03/05/22 22:33 Famotidine 20 Mg/2 Ml Inj IV 10 mg BID VERN Administration Furosemide 20 mg 03/05/22 13:54 03/06/22 05:22 Furosemide 40 Mg/4 Ml Inj IV 20 mg 0600,1800 VERN Administration Heparin Sodium (Porcine) 5,000 unit 03/04/22 14:00 03/06/22 05:22 Heparin 5,000 Unit/1 Ml Vial SUB-Q 5,000 unit Q8HR VERN Administration Metoclopramide HCl 10 mg 03/03/22 20:28 03/06/22 04:29 Metoclopramide 10 Mg/2 Ml Inj IV 10 mg Q6H PRN Administration Nausea And Vomiting Morphine Sulfate 2 mg 03/03/22 20:28 Morphine 2 Mg/1 Ml Inj IV Q4H PRN Pain, Moderate (4-6) Ondansetron HCl 4 mg 03/03/22 20:28 Ondansetron 4 Mg/2 Ml Inj IV Q8H PRN Nausea And Vomiting Oxycodone/Acetaminophen 1 tab 03/03/22 20:28 Oxycodone /Acetaminophen 5-325mg Tab PO Q6H PRN Pain, Moderate (4-6) Sodium Chloride 10 ml 03/03/22 22:00 03/05/22 22:33 Sodium Chloride 0.9% 10 Ml Flush Syringe IV 10 ml BID VERN Administration Sodium Chloride 10 ml 03/03/22 20:28 Sodium Chloride 0.9% 10 Ml Flush Syringe IV PRN PRN LINE FLUSH
[2022-03-06] MEDS ORDERED: POLYETHYLENE GLYCOL 3350 17 GM POWDER PO PRN (11:00)
--- NOTE | 2022-03-06 11:04 | Progress Note ---
Assessment and Plan 71 y/o female with severe pulm htn and Eliseo with acute on chronic respiratory failure. 03/06/22: CXR read by cards suggest unchanged edema. Agree with continued diuresis and fluid restriction. Wean Vent for sats >88%. Continue NIV therapy at night 1. Cardiology following. This degree of Pulm HTN is not seen with just ELISEO alone, especially in someone who is compliant with therapy. Defer to cards but would consider right heart cath if not already done previously 2. Continue bipap therapy at night as well as PRN during the day. Patient does not know her settings for her machine at home and my office did not manipulate these numbers last. Will titrate sat of >88% and comfort 3. Agree with continued diuresis, CXR shows continued vascular congestion, maybe slightly better, maybe 4. Wean FiO2 for sats >88% Subjective Date of service: 03/06/22 Principal diagnosis: Hypoxic respiratory failure Interval history: No acute events. Still on venti- Mask. Objective Vital Signs - 12hr 03/05/22 03/06/22 03/06/22 23:15 04:23 05:37 Temperature 98.5 F 98.1 F Pulse Rate 84 91 H Respiratory 22 22 Rate Blood Pressure 119/59 153/75 Blood Pressure 127/65 [Left] O2 Sat by Pulse 92 94 Oximetry 03/06/22 09:36 Temperature Pulse Rate Respiratory Rate Blood Pressure Blood Pressure [Left] O2 Sat by Pulse 92 Oximetry Constitutional: no acute distress, alert Eyes: non-icteric ENT: oropharynx moist Neck: supple, other (large in circumference) Effort: mildly labored Ascultation: Bilateral: rales Percussion: Bilateral: not dull Cardiovascular: regular rate and rhythm Gastrointestinal: normoactive bowel sounds, soft CBC and BMP: 03/04/22 03:05 03/06/22 05:25 Abnormal lab findings: Abnormal Labs 03/03/22 03/03/22 03/03/22 13:34 13:34 13:34 RDW 16.1 H Lymph % (Auto) 9.7 L Lymph # (Auto) 0.8 L Seg Neutrophils % 84.6 H Potassium BUN 47 H Creatinine 1.7 H Glucose 101 H ALT NT-Pro-B Natriuret Pep 31099 H Total Protein 9.1 H Albumin 3.5 L Urine WBC (Auto) Urine Creatinine Urine Total Protein 03/04/22 03/04/22 03/04/22 02:51 03:05 17:35 RDW 16.0 H Lymph % (Auto) 8.9 L Lymph # (Auto) 0.8 L Seg Neutrophils % 84.1 H Potassium BUN 46 H Creatinine 1.8 H Glucose 119 H ALT 6 L NT-Pro-B Natriuret Pep Total Protein 8.4 H Albumin 3.4 L Urine WBC (Auto) 11.0 H Urine Creatinine Urine Total Protein 03/04/22 03/05/22 03/05/22 17:35 12:08 15:18 RDW Lymph % (Auto) Lymph # (Auto) Seg Neutrophils % Potassium 6.4 H* D BUN 55 H 55 H Creatinine 2.0 H 2.0 H Glucose 120 H 116 H ALT NT-Pro-B Natriuret Pep Total Protein Albumin Urine WBC (Auto) Urine Creatinine 41.2 H Urine Total Protein 16 H 03/06/22 05:25 RDW Lymph % (Auto) Lymph # (Auto) Seg Neutrophils % Potassium BUN 58 H Creatinine 2.1 H Glucose 103 H ALT NT-Pro-B Natriuret Pep Total Protein Albumin Urine WBC (Auto) Urine Creatinine Urine Total Protein
[2022-03-06] MEDS: SENNOSIDES/DOCUSATE SODIUM 8.6/50 MG TAB PO SCH ×2 (12:11→22:33)
--- NOTE | 2022-03-06 15:07 | Electrocardiograph Report ---
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
--- NOTE | 2022-03-06 15:18 | Electrocardiograph Report ---
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
[2022-03-06] MEDS: NITROFURANTOIN MONOHYD/M-CRYST 100 MG CAP PO SCH (22:31)
[2022-03-07] MEDS: FUROSEMIDE 40 MG/4 ML INJ IV SCH ×2 (06:01→18:29)
[2022-03-07] MEDS: HEPARIN 5,000 UNIT/1 ML VIAL SUB-Q SCH ×3 (06:01→22:25)
--- NOTE | 2022-03-07 06:38 | Progress Note ---
Assessment and Plan Assessment and plan: #Severe pulmonary hypertension #Acute on chronic hypoxic respiratory failure - etiology: Heart failure exacerbation. - baseline oxygen requirements: 5 L nasal cannula - supplemental oxygen: BiPAP Pulmonology consulted; appreciate recs - Continue protocol: continue pulse oximetry, wean oxygen as tolerated, ordered incentive spirometry and educated patient on how to use it and its importance. Continue IV Lasix 40 mg twice daily for volume reduction. - Unremarkable LE dopplers. Pending V/Q scan. - continue to monitor #Acute on chronic diastolic heart failure - Continue CHF exacerbation protocol: Telemetry, Strict I/O, monitor urine output every shift, daily weights, afterload reduction, low-sodium diet, and fluid restriction of approximately 1.5 mL/day, IV Lasix 40 mg twice daily - Supplemental oxygen: 8 L nasal cannula - ProBNP on admission: ,875 - Cardiology consulted; appreciate recs - TTE (03/04/2022) revealing EF 50-55% with normal-sized LV, lower limits of normal LV systolic function, borderline concentric LVH, severely dilated RV, severely reduced RV systolic function, mildly dilated LA, severely dilated RA, RVSP >95 mmHg, and severe pulmonary hypertension. - Continue to monitor #ESBL UTI/cystitis without hematuria Urinalysis revealing large leukocyte esterase, WBC 11, 1+ bacteria, few budding yeast. Currently on Macrobid 100 mg twice daily. Infectious disease consulted; pending recs. Patient has reported anaphylactic reaction to penicillins. Continue precautions #Atypical chest painruled out Negative troponin x2 Likely secondary to volume overload in the setting of acute heart failure. #CKD stage III Creatinine 1.8 (baseline unknown) Renally dose meds and avoid nephrotoxic drugs. Nephrology consulted; appreciate recs #Mild protein caloric malnutrition Albumin 3.4 Continue dietary supplementation #Morbid obesity #Weight loss counseling #Exercise counseling - BMI 53.1 - Counseled patient on the importance of weight loss, incorporating exercise, and dietary changes (lean meats, fresh fruits and vegetables, and water intake). Patient expresses understanding. - Time: +15 min Critical Care Billing: The high probability of a clinically significant, sudden or life threatening deterioration of the [respiratory] system(s) required my full and direct attention, intervention and personal management. The aggregate critical care time was [60] minutes. This time is in addition to time spent performing reported procedures but includes the following: [x] Data Review and interpretation [x] Patient assessment and monitoring of vital signs [x] Documentation [x] Medication orders and management Disposition Plan: Continue medical management Total Time Spent with Patient (Minutes): 45 minutes History Interval history: Patient was placed on BiPAP last night due to worsening respiratory distress was visualized by respiratory therapy. Hospitalist Physical - Constitutional Vitals: Temp Pulse Resp BP Pulse Ox 98.1 F 85 17 117/66 95 03/07/22 04:56 03/07/22 04:56 03/07/22 04:56 03/07/22 04:56 03/07/22 04:56 General appearance: Present: mild distress, well-nourished, obese - EENT Eyes: Present: PERRL, EOM intact ENT: hearing intact, clear oral mucosa, dentition normal - Neck Neck: Present: supple, normal ROM - Respiratory Respiratory effort: labored Respiratory: bilateral: diminished (On BiPAP) - Cardiovascular Rhythm: regular Heart Sounds: Present: S1 & S2 - Extremities Extremities: no ischemia, pulses intact, pulses symmetrical, No edema, normal temperature, normal color Peripheral Pulses: within normal limits - Abdominal General gastrointestinal: soft, non-tender, non-distended, normal bowel sounds - Integumentary Integumentary: Present: clear, warm, dry - Psychiatric Psychiatric: appropriate mood/affect, memory intact, cooperative - Neurologic Neurologic: CNII-XII intact, moves all extremities - Allied Health Allied health notes reviewed: nursing HEART Score - HEART Score Age: > 65 Risk factors: 1-2 risk factors Troponin: Troponin T < 0.010 ng/mL (0.00-0.029) 03/03/22 13:34 Troponin: < normal limit - Critical Actions Critical Actions: 4-6 pts:12-16.6% risk of adverse cardiac event. Should be admitted Results - Labs CBC & Chem 7: 03/04/22 03:05 03/06/22 05:25 Labs: Laboratory Last Values WBC 8.5 K/mm3 (4.5-11.0) 03/04/22 03:05 RBC 4.39 M/mm3 (3.65-5.03) 03/04/22 03:05 Hgb 12.7 gm/dl (10.1-14.3) 03/04/22 03:05 Hct 40.5 % (30.3-42.9) 03/04/22 03:05 MCV 92 fl (79-97) 03/04/22 03:05 MCH 29 pg (28-32) 03/04/22 03:05 MCHC 31 % (30-34) 03/04/22 03:05 RDW 16.0 % (13.2-15.2) H 03/04/22 03:05 Plt Count 208 K/mm3 (140-440) 03/04/22 03:05 Lymph % (Auto) 8.9 % (13.4-35.0) L 03/04/22 03:05 [place] % (Auto) 4.9 % (0.0-7.3) 03/04/22 03:05 Eos % (Auto) 1.8 % (0.0-4.3) 03/04/22 03:05 Baso % (Auto) 0.3 % (0.0-1.8) 03/04/22 03:05 Lymph # (Auto) 0.8 K/mm3 (1.2-5.4) L 03/04/22 03:05 [place] # (Auto) 0.4 K/mm3 (0.0-0.8) 03/04/22 03:05 Eos # (Auto) 0.2 K/mm3 (0.0-0.4) 03/04/22 03:05 Baso # (Auto) 0.0 K/mm3 (0.0-0.1) 03/04/22 03:05 Seg Neutrophils % 84.1 % (40.0-70.0) H 03/04/22 03:05 Seg Neutrophils # 7.2 K/mm3 (1.8-7.7) 03/04/22 03:05 Sodium 137 mmol/L (137-145) 03/06/22 05:25 Potassium 4.4 mmol/L (3.6-5.0) 03/06/22 05:25 Chloride 99.5 mmol/L (98-107) 03/06/22 05:25 Carbon Dioxide 25 mmol/L (22-30) 03/06/22 05:25 Anion Gap 17 mmol/L 03/06/22 05:25 BUN 58 mg/dL (7-17) H 03/06/22 05:25 Creatinine 2.1 mg/dL (0.6-1.2) H 03/06/22 05:25 Estimated GFR 28 ml/min 03/06/22 05:25 BUN/Creatinine Ratio 28 % 03/06/22 05:25 Glucose 103 mg/dL (65-100) H 03/06/22 05:25 Calcium 9.1 mg/dL (8.4-10.2) 03/06/22 05:25 Total Bilirubin 0.60 mg/dL (0.1-1.2) 03/04/22 02:51 AST 12 units/L (5-40) 03/04/22 02:51 ALT 6 units/L (7-56) L 03/04/22 02:51 Alkaline Phosphatase 91 units/L (35-129) 03/04/22 02:51 Troponin T < 0.010 ng/mL (0.00-0.029) 03/03/22 13:34 NT-Pro-B Natriuret Pep 09724 pg/mL (0-900) H 03/03/22 13:34 Total Protein 8.4 g/dL (6.3-8.2) H 03/04/22 02:51 Albumin 3.4 g/dL (3.9-5) L 03/04/22 02:51 Albumin/Globulin Ratio 0.7 % 03/04/22 02:51 Urine Color Yellow (Yellow) 03/04/22 17:35 Urine Turbidity Slightly-cloudy (Clear) 03/04/22 17:35 Urine pH 6.0 (5.0-7.0) 03/04/22 17:35 Ur Specific [place] 1.008 (1.003-1.030) 03/04/22 17:35 Urine Protein <15 mg/dl mg/dL (Negative) 03/04/22 17:35 Urine Glucose (UA) Neg mg/dL (Negative) 03/04/22 17:35 Urine Ketones Neg mg/dL (Negative) 03/04/22 17:35 Urine Blood Mod (Negative) 03/04/22 17:35 Urine Nitrite Neg (Negative) 03/04/22 17:35 Urine Bilirubin Neg (Negative) 03/04/22 17:35 Urine Urobilinogen < 2.0 mg/dL (<2.0) 03/04/22 17:35 Ur Leukocyte Esterase Lg (Negative) 03/04/22 17:35 Urine WBC (Auto) 11.0 /HPF (0.0-6.0) H 03/04/22 17:35 Urine RBC (Auto) 2.0 /HPF (0.0-6.0) 03/04/22 17:35 U Epithel Cells (Auto) 1.0 /HPF (0-13.0) 03/04/22 17:35 Urine Bacteria (Auto) 1+ /HPF (Negative) 03/04/22 17:35 Urine Mucus Few /HPF 03/04/22 17:35 Urine Yeast (Budding) Few /HPF 03/04/22 17:35 Urine Creatinine 41.2 mg/dL (0.1-20.0) H 03/04/22 17:35 Urine Sodium 126 mmol/L 03/04/22 17:35 Urine Total Protein 16 mg/dL (5-11.8) H 03/04/22 17:35 Coronavirus (PCR) Negative (Negative) 03/04/22 09:57 Microbiology: Microbiology 03/04/22 17:35 Urine,Clean Catch Urine Culture - Final Escherichia Coli Gale/IV: Voiding Method External Female Catheter Active Medications - Current Medications Current Medications: Generic Name Dose Route Start Last Admin Trade Name Freq PRN Reason Stop Dose Admin Acetaminophen 650 mg 03/03/22 20:28 03/06/22 04:29 Acetaminophen 325 Mg Tab PO 650 mg Q4H PRN Administration Pain MILD(1-3)/Fever >100.5/HOFFMAN Famotidine 10 mg 03/03/22 22:00 03/06/22 22:30 Famotidine 20 Mg/2 Ml Inj IV 10 mg BID VERN Administration Furosemide 40 mg 03/06/22 18:00 03/07/22 06:01 Furosemide 40 Mg/4 Ml Inj IV 40 mg 0600,1800 VERN Administration Heparin Sodium (Porcine) 5,000 unit 03/04/22 14:00 03/07/22 06:01 Heparin 5,000 Unit/1 Ml Vial SUB-Q 5,000 unit Q8HR VERN Administration Metoclopramide HCl 10 mg 03/03/22 20:28 03/06/22 04:29 Metoclopramide 10 Mg/2 Ml Inj IV 10 mg Q6H PRN Administration Nausea And Vomiting Morphine Sulfate 2 mg 03/03/22 20:28 Morphine 2 Mg/1 Ml Inj IV Q4H PRN Pain, Moderate (4-6) Nitrofurantoin Macrocrystals 100 mg 03/06/22 22:00 03/06/22 22:31 Nitrofurantoin Monohyd/M-Cryst 100 Mg Cap PO 03/16/22 21:59 100 mg Q12HR VERN Administration Ondansetron HCl 4 mg 03/03/22 20:28 Ondansetron 4 Mg/2 Ml Inj IV Q8H PRN Nausea And Vomiting Oxycodone/Acetaminophen 1 tab 03/03/22 20:28 Oxycodone /Acetaminophen 5-325mg Tab PO Q6H PRN Pain, Moderate (4-6) Polyethylene Glycol 17 gm 03/06/22 11:00 Polyethylene Glycol 3350 17 Gm Powder PO QDAY PRN Constipation Senna/Docusate Sodium 2 tab 03/06/22 11:00 03/06/22 22:33 Sennosides/Docusate Sodium 8.6/50 Mg Tab PO 2 tab Q12H VERN Administration Sodium Chloride 10 ml 03/03/22 22:00 03/06/22 22:31 Sodium Chloride 0.9% 10 Ml Flush Syringe IV 10 ml BID VENR Administration Sodium Chloride 10 ml 03/03/22 20:28 Sodium Chloride 0.9% 10 Ml Flush Syringe IV PRN PRN LINE FLUSH
--- NOTE | 2022-03-07 10:06 | Progress Note ---
Assessment and Plan 71 y/o female with severe pulm htn and Eliseo with acute on chronic respiratory failure. 03/07/22: No new recs. Will find old office notes today to see the last time we saw this patient. 03/06/22: CXR read by rads suggest unchanged edema. Agree with continued diuresis and fluid restriction. Wean Vent for sats >88%. Continue NIV therapy at night 1. Cardiology following. This degree of Pulm HTN is not seen with just ELISEO alone, especially in someone who is compliant with therapy. Defer to cards but would consider right heart cath if not already done previously 2. Continue bipap therapy at night as well as PRN during the day. Patient does not know her settings for her machine at home and my office did not manipulate these numbers last. Will titrate sat of >88% and comfort 3. Agree with continued diuresis, CXR shows continued vascular congestion, maybe slightly better, maybe 4. Wean FiO2 for sats >88% Subjective Date of service: 03/07/22 Principal diagnosis: Hypoxic respiratory failure Interval history: No acute events. Still no venti mask. Objective Vital Signs - 12hr 03/06/22 03/06/22 03/07/22 22:21 23:00 00:29 Temperature 97.5 F L Pulse Rate 95 H 91 H 91 H Respiratory 21 17 Rate Blood Pressure 128/80 [Left] O2 Sat by Pulse 95 97 Oximetry 03/07/22 03/07/22 04:56 07:52 Temperature 98.1 F Pulse Rate 85 Respiratory 17 Rate Blood Pressure 117/66 [Left] O2 Sat by Pulse 95 92 Oximetry Constitutional: no acute distress, alert Eyes: non-icteric ENT: oropharynx moist Neck: supple, other (large in circumference) Effort: mildly labored Ascultation: Bilateral: rales Percussion: Bilateral: not dull Cardiovascular: regular rate and rhythm Gastrointestinal: normoactive bowel sounds, soft CBC and BMP: 03/04/22 03:05 03/06/22 05:25 Abnormal lab findings: Abnormal Labs 03/03/22 03/03/22 03/03/22 13:34 13:34 13:34 RDW 16.1 H Lymph % (Auto) 9.7 L Lymph # (Auto) 0.8 L Seg Neutrophils % 84.6 H Potassium BUN 47 H Creatinine 1.7 H Glucose 101 H ALT NT-Pro-B Natriuret Pep 99107 H Total Protein 9.1 H Albumin 3.5 L Urine WBC (Auto) Urine Creatinine Urine Total Protein 03/04/22 03/04/22 03/04/22 02:51 03:05 17:35 RDW 16.0 H Lymph % (Auto) 8.9 L Lymph # (Auto) 0.8 L Seg Neutrophils % 84.1 H Potassium BUN 46 H Creatinine 1.8 H Glucose 119 H ALT 6 L NT-Pro-B Natriuret Pep Total Protein 8.4 H Albumin 3.4 L Urine WBC (Auto) 11.0 H Urine Creatinine Urine Total Protein 03/04/22 03/05/22 03/05/22 17:35 12:08 15:18 RDW Lymph % (Auto) Lymph # (Auto) Seg Neutrophils % Potassium 6.4 H* D BUN 55 H 55 H Creatinine 2.0 H 2.0 H Glucose 120 H 116 H ALT NT-Pro-B Natriuret Pep Total Protein Albumin Urine WBC (Auto) Urine Creatinine 41.2 H Urine Total Protein 16 H 03/06/22 05:25 RDW Lymph % (Auto) Lymph # (Auto) Seg Neutrophils % Potassium BUN 58 H Creatinine 2.1 H Glucose 103 H ALT NT-Pro-B Natriuret Pep Total Protein Albumin Urine WBC (Auto) Urine Creatinine Urine Total Protein
--- NOTE | 2022-03-07 10:14 | Progress Note ---
Assessment and Plan - Patient Problems (1) Acute exacerbation of congestive heart failure Current Visit: Yes Status: Acute Qualifiers: Heart failure type: combined systolic and diastolic Qualified Code(s): I50.43 - Acute on chronic combined systolic (congestive) and diastolic (congestive) heart failure Plan to address problem: Continue gentle diuresis and monitor volume status. (2) Acute respiratory failure with hypoxia Current Visit: Yes Status: Acute Plan to address problem: Continue respiratory support (3) Chronic kidney disease, stage 3b Current Visit: Yes Status: Acute Plan to address problem: Kidney function was not significantly changed yesterday. Labs pending this morning. (4) Hypertensive chronic kidney disease with stage 1 through stage 4 chronic kidney disease, or unspecified chronic kidney disease Current Visit: Yes Status: Acute Plan to address problem: Follow-up blood pressure on current medications. Subjective Date of service: 03/07/22 Principal diagnosis: Hypoxic respiratory failure Interval history: Patient seen lying in bed. She has no complaints. Shortness of breath improv ing. No chest pain. No nausea vomiting Objective - Exam Narrative Exam: Morbidly obese elderly -[place]arshallese female lying in bed in no acute respiratory distress at rest. HEENT: NCAT, pink oral mucous membrane Neck: Supple, no venous distention CVS: S1S2 RRR with no murmur, rub or gallop Chest: Clear to auscultation but breath sounds diminished in the lower zones Abdomen: Protuberant, soft, nontender, no organomegaly, bowel sounds are present Extremities: No edema Genitourinary deferred Skin warm and dry with hyperpigmented patches in legs and feet with scaling. Neuro: Awake, alert no focal deficits - Vital Signs Vital signs: Vital Signs - 12hr 03/06/22 03/06/22 03/07/22 22:21 23:00 00:29 Temperature 97.5 F L Pulse Rate 95 H 91 H 91 H Respiratory 21 17 Rate Blood Pressure 128/80 [Left] O2 Sat by Pulse 95 97 Oximetry 03/07/22 03/07/22 04:56 07:52 Temperature 98.1 F Pulse Rate 85 Respiratory 17 Rate Blood Pressure 117/66 [Left] O2 Sat by Pulse 95 92 Oximetry - Lab 03/04/22 03:05 03/06/22 05:25 Most recent lab results Calcium 9.1 mg/dL (8.4-10.2) 03/06/22 05:25 Urine Creatinine 41.2 mg/dL (0.1-20.0) H 03/04/22 17:35 Urine Sodium 126 mmol/L 03/04/22 17:35 Urine Total Protein 16 mg/dL (5-11.8) H 03/04/22 17:35 Medications & Allergies - Medications Allergies/Adverse Reactions: Allergies iodine Allergy (Verified 03/03/22 12:49) Anaphylaxis Penicillins Allergy (Verified 03/03/22 12:49) Anaphylaxis shellfish derived Allergy (Verified 03/03/22 12:49) Anaphylaxis Home Medications: Home Medications Medication Instructions Recorded Confirmed Last Taken Type Acetaminophen [Non-Aspirin Extra 500 mg PO Q8HR PRN 03/04/22 03/04/22 03/01/22 History Strength] Aspirin EC 325 mg PO 4XW 03/04/22 03/04/22 03/02/22 History Hydrocodone-Acetamin 2.5-325 5 - 325 mg PO Q6HR PRN 03/04/22 03/04/22 03/02/22 History Mucus Relief ER 600 mg PO BID 03/04/22 03/05/22 03/02/22 History Omeprazole 40 mg PO DAILY 03/04/22 03/05/22 03/02/22 History Phenazopyridine 200 mg PO TID 03/04/22 03/04/22 03/03/22 History Senna Plus Tablet 8.6 - 50 mg PO BID MDD CONSTIPATION 03/04/22 03/05/22 03/02/22 History Diclofenac Sodium ER 75 mg PO Q8HR 03/05/22 03/05/22 03/02/22 History Nifedipine ER 60 mg PO DAILY 03/05/22 03/05/22 03/02/22 History Vitamin D3 25 mg PO DAILY 03/05/22 03/05/22 03/02/22 History Active Medications: Generic Name Dose Route Start Last Admin Trade Name Freq PRN Reason Stop Dose Admin Acetaminophen 650 mg 03/03/22 20:28 03/06/22 04:29 Acetaminophen 325 Mg Tab PO 650 mg Q4H PRN Administration Pain MILD(1-3)/Fever >100.5/HOFFMAN Famotidine 10 mg 03/03/22 22:00 03/06/22 22:30 Famotidine 20 Mg/2 Ml Inj IV 10 mg BID VERN Administration Furosemide 40 mg 03/06/22 18:00 03/07/22 06:01 Furosemide 40 Mg/4 Ml Inj IV 40 mg 0600,1800 VERN Administration Heparin Sodium (Porcine) 5,000 unit 03/04/22 14:00 03/07/22 06:01 Heparin 5,000 Unit/1 Ml Vial SUB-Q 5,000 unit Q8HR VERN Administration Metoclopramide HCl 10 mg 03/03/22 20:28 03/06/22 04:29 Metoclopramide 10 Mg/2 Ml Inj IV 10 mg Q6H PRN Administration Nausea And Vomiting Morphine Sulfate 2 mg 03/03/22 20:28 Morphine 2 Mg/1 Ml Inj IV Q4H PRN Pain, Moderate (4-6) Nitrofurantoin Macrocrystals 100 mg 03/06/22 22:00 03/06/22 22:31 Nitrofurantoin Monohyd/M-Cryst 100 Mg Cap PO 03/16/22 21:59 100 mg Q12HR VERN Administration Ondansetron HCl 4 mg 03/03/22 20:28 Ondansetron 4 Mg/2 Ml Inj IV Q8H PRN Nausea And Vomiting Oxycodone/Acetaminophen 1 tab 03/03/22 20:28 Oxycodone /Acetaminophen 5-325mg Tab PO Q6H PRN Pain, Moderate (4-6) Polyethylene Glycol 17 gm 03/06/22 11:00 Polyethylene Glycol 3350 17 Gm Powder PO QDAY PRN Constipation Senna/Docusate Sodium 2 tab 03/06/22 11:00 03/06/22 22:33 Sennosides/Docusate Sodium 8.6/50 Mg Tab PO 2 tab Q12H VERN Administration Sodium Chloride 10 ml 03/03/22 22:00 03/06/22 22:31 Sodium Chloride 0.9% 10 Ml Flush Syringe IV 10 ml BID VERN Administration Sodium Chloride 10 ml 03/03/22 20:28 Sodium Chloride 0.9% 10 Ml Flush Syringe IV PRN PRN LINE FLUSH
[2022-03-07] MEDS: FAMOTIDINE 20 MG/2 ML INJ IV SCH ×2 (10:18→22:25)
--- NOTE | 2022-03-07 10:19 | XRay Report ---
CHEST 1 VIEW 03/07/2022 8:54 AM INDICATION / CLINICAL INFORMATION: Evaluation prior to nuclear scan. COMPARISON: 03/05/2022 FINDINGS: SUPPORT DEVICES: None. HEART / MEDIASTINUM: Cardiomegaly LUNGS / PLEURA: Increased pulmonary vascularity with increased interstitial prominence No pneumothora x. ADDITIONAL FINDINGS: No significant additional findings. IMPRESSION: 1. Cardiomegaly with increased pulmonary vascularity/congested change Signer Name: Randall Delgadillo MD Signed: 03/07/2022 10:14 AM Workstation Name: [id number]
--- NOTE | 2022-03-07 10:25 | Vascular Lab Report ---
DUPLEX DOPPLER LOWER EXTREMITY VEINS, BILATERAL INDICATION / CLINICAL INFORMATION: Edema. TECHNIQUE: Duplex doppler imaging was performed through the veins of both lower extremities using venous evelin airam and other maneuvers. COMPARISON: None available. FINDINGS: RIGHT COMMON FEMORAL VEIN: Negative. RIGHT FEMORAL VEIN: Negative. RIGHT POPLITEAL VEIN: Negative. RIGHT CALF VEINS: Negative. LEFT COMMON FEMORAL VEIN: Negative. LEFT FEMORAL VEIN: Negative. LEFT POPLITEAL VEIN: Negative. LEFT CALF VEINS: Negative. ADDITIONAL FINDINGS: None. IMPRESSION: 1. No sonographic evidence for DVT in either lower extremity. Signer Name: Francisco Glynn MD Signed: 03/07/2022 10:20 AM Workstation Name: [email or web address]
--- NOTE | 2022-03-07 11:56 | Progress Note ---
Assessment and Plan - Patient Problems (1) Interstitial edema Current Visit: Yes Status: Acute Plan to address problem: 71-year-old woman with morbid obesity, obstructive sleep apnea, hypertension, presents with shortness of breath and chest x-ray evidence of mild to moderate interstitial edema. Previous invasive cardiac work-up 10 years ago showed no significant coronary artery disease. Prior left ventricular systolic function assessment was well-preserved at 50%. Echocardiogram on this presentation demonstrates well-preserved left ventricular systolic function. Major finding on the echocardiogram is the presence of severe cor pulmonale with dilated right heart chambers, moderate to severe tricuspid regurgitation and severe pulmonary hypertension with pulmonary artery systolic pressures approaching systemic levels. We will defer to pulmonary for management of her chronic lung disease which is a primary pathology and etiology of chronic dyspnea and hypoxemia. 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 Objective Vital Signs Temp Pulse Resp BP BP Pulse Ox 03/07/22 10:12 94 H 137/68 93 03/07/22 07:52 92 03/07/22 04:56 98.1 F 85 17 117/66 95 03/07/22 00:29 97.5 F L 91 H 17 128/80 97 03/06/22 23:00 91 H 03/06/22 22:21 95 H 21 95 03/06/22 21:14 20 94 03/06/22 20:18 91 03/06/22 20:12 97.3 F L 81 18 142/82 98 03/06/22 17:18 98.4 F 03/06/22 17:09 97 H 21 131/70 95 03/06/22 12:14 89 18 118/66 91 03/06/22 11:56 89 - Physical Examination HEENT: Positive: PERRL Neck: Positive: neck supple Cardiac: Positive: Reg Rate and Rhythm Lungs: Positive: Decreased Breath Sounds Neuro: Positive: Grossly Intact Abdomen: Positive: Soft Skin: Positive: Clear Extremities: Present: edema (Minimal) - Imaging and Cardiology EKG: report reviewed (Sinus tachycardia no acute ST-T wave changes)
[2022-03-07] MEDS: SENNOSIDES/DOCUSATE SODIUM 8.6/50 MG TAB PO SCH ×2 (12:25→22:25)
[2022-03-07] MEDS: NITROFURANTOIN MONOHYD/M-CRYST 100 MG CAP PO SCH ×2 (12:26→22:25)
--- NOTE | 2022-03-07 14:08 | Nuclear Medicine Report ---
NUCLEAR MEDICINE PERFUSION LUNG SCAN INDICATION / CLINICAL INFORMATION: Hypoxic respiratory failure, pulmonary hypertensio. TECHNIQUE: 5.2 mCi of Tc-99m MAA were given by IV. COMPARISON: Chest radiograph dated 03/07/2022. FINDINGS: PERFUSION: No significant perfusion defects. ADDITIONAL FINDINGS: None. IMPRESSION: 1. Low probability for pulmonary embolism. Signer Name: Edgar Morillo DO Signed: 03/07/2022 2:03 PM Workstation Name: [id number]
--- NOTE | 2022-03-07 23:34 | Consultation ---
History of Present Illness - Reason for Consult Consult date: 03/07/22 - History of Present Illness 8-year-old female past medical history COPD, CHF on chronic home oxygen presented to hospital complaining shortness of breath. She complains of increasing orthopnea and shortness of breath on exertion. Afebrile since admission with a white count of 8.5. COVID-negative. eGFR 28. Urine cultures with ESBL E. coli. She is currently on nitrofurantoin. Imaging personally reviewed: Chest x-ray: Increased pulmonary vascularity Review of Systems: Bold if positive, otherwise negative General: fevers, chills, rigors HEENT: visual disturbance, diplopia, eye pain Respiratory: cough, sputum, hemoptysis, shortness of breath Cardiovascular: chest pain, syncope Gastrointestinal: nausea, vomiting, diarrhea, abdominal pain Genitourinary: dysuria, hematuria, flank pain Musculoskeletal: neck pain, back pain, joint pain, edema Neurologic: headaches, seizures Hematologic: easy bruising or bleeding Endocrine: night sweats, acute weight loss Skin: rash, jaundice, redness Psychiatric: suicidal, homicidal ideation Past History Past Medical History: diabetes, hypertension, other (Severe obesity with obstructive sleep apnea) Past Surgical History: Other Social history: denies: smoking, alcohol abuse, prescription drug abuse, IV drug use Family history: hypertension Medications and Allergies Allergies Allergy/AdvReac Type Severity Reaction Status Date / Time iodine Allergy Anaphylaxis Verified 03/03/22 12:49 Penicillins Allergy Anaphylaxis Verified 03/03/22 12:49 shellfish derived Allergy Anaphylaxis Verified 03/03/22 12:49 Home Medications Medication Instructions Recorded Confirmed Last Taken Type Acetaminophen [Non-Aspirin Extra 500 mg PO Q8HR PRN 03/04/22 03/04/22 03/01/22 H istory Strength] Aspirin EC 325 mg PO 4XW 03/04/22 03/04/22 03/02/22 History Hydrocodone-Acetamin 2.5-325 5 - 325 mg PO Q6HR PRN 03/04/22 03/04/22 03/02/22 History Mucus Relief ER 600 mg PO BID 03/04/22 03/05/22 03/02/22 History Omeprazole 40 mg PO DAILY 03/04/22 03/05/22 03/02/22 History Phenazopyridine 200 mg PO TID 03/04/22 03/04/2222 History Senna Plus Tablet 8.6 - 50 mg PO BID MDD CONSTIPATION 03/04/22 03/05/22 03/02/22 History Diclofenac Sodium ER 75 mg PO Q8HR 03/05/22 03/05/22 03/02/22 History Nifedipine ER 60 mg PO DAILY 03/05/22 03/05/22 03/02/22 History Vitamin D3 25 mg PO DAILY 03/05/22 03/05/22 03/02/22 History Active Meds: Active Medications Acetaminophen (Acetaminophen 325 Mg Tab) 650 mg PO Q4H PRN PRN Reason: Pain MILD(1-3)/Fever >100.5/HOFFMAN Last Admin: 03/06/22 04:29 Dose: 650 mg Famotidine (Famotidine 20 Mg/2 Ml Inj) 10 mg IV BID [facility] Last Admin: 03/07/22 22:25 Dose: 10 mg Furosemide (Furosemide 40 Mg/4 Ml Inj) 40 mg IV 0600,1800 [facility] Last Admin: 03/07/22 18:29 Dose: 40 mg Heparin Sodium (Porcine) (Heparin 5,000 Unit/1 Ml Vial) 5,000 unit SUB-Q Q8HR [facility] Last Admin: 03/07/22 22:25 Dose: 5,000 unit Metoclopramide HCl (Metoclopramide 10 Mg/2 Ml Inj) 10 mg IV Q6H PRN PRN Reason: Nausea And Vomiting Last Admin: 03/06/22 04:29 Dose: 10 mg Morphine Sulfate (Morphine 2 Mg/1 Ml Inj) 2 mg IV Q4H PRN PRN Reason: Pain, Moderate (4-6) Nitrofurantoin Macrocrystals (Nitrofurantoin Monohyd/M-Cryst 100 Mg Cap) 100 mg PO Q12HR [facility] Stop: 03/16/22 21:59 Last Admin: 03/07/22 22:25 Dose: 100 mg Ondansetron HCl (Ondansetron 4 Mg/2 Ml Inj) 4 mg IV Q8H PRN PRN Reason: Nausea And Vomiting Oxycodone/Acetaminophen (Oxycodone /Acetaminophen 5-325mg Tab) 1 tab PO Q6H PRN PRN Reason: Pain, Moderate (4-6) Polyethylene Glycol (Polyethylene Glycol 3350 17 Gm Powder) 17 gm PO QDAY PRN PRN Reason: Constipation Senna/Docusate Sodium (Sennosides/Docusate Sodium 8.6/50 Mg Tab) 2 tab PO Q12H [facility] Last Admin: 03/07/22 22:25 Dose: Not Given Sodium Chloride (Sodium Chloride 0.9% 10 Ml Flush Syringe) 10 ml IV BID [facility] Last Admin: 03/07/22 22:26 Dose: 10 ml Sodium Chloride (Sodium Chloride 0.9% 10 Ml Flush Syringe) 10 ml IV PRN PRN PRN Reason: LINE FLUSH Physical Examination - Physical Exam Narrative exam: Physical Exam: Constitutional: Alert, cooperative. No acute distress Head, Ears, Nose: Normocephalic, atraumatic. External ears, nose normal Eyes: Conjunctivae/corneas clear. No icterus. No ptosis. Neck: Supple, no meningeal signs Oral: dentition fair, no thrush Cardiovascular: S1, S2 normal. Respiratory: Good air entry, clear to auscultation bilaterally GI: Soft, non-tender; bowel sounds normal. No peritoneal signs. Musculoskeletal: No pedal edema, no cyanosis. Skin: No rash or abscess Hem/Lymphatic: No palpable cervical or supraclavicular nodes. No lymphangitis Psych: Mood ok. Affect normal Neurological: Awake, alert, oriented. No gross abnormality - Constitutional Vitals: Vital Signs Temp Pulse Resp BP Pulse Ox 98.5 F 82 32 H 142/64 96 03/07/22 20:46 03/07/22 22:00 03/07/22 22:00 03/07/22 20:46 03/07/22 22:00 Temperature -Last 24 Hours Temperature 98.5 F Temperature 98.5 F Temperature 98.1 F Temperature 97.5 F Results - Labs CBC & Chem 7: 03/04/22 03:05 03/06/22 05:25 Assessment and Plan Cultures: Urine culture ESBL E. coli A/P: 71-year-old female past medical history chronic CHF now with: #ESBL E. coli UTI: Sensitive to Macrobid #RIN on CKD: Renally dose medications #Acute CHF: Presented with shortness of breath, vascular congestion #Penicillin allergy Recs: -Continue nitrofurantoin 100 mg every 12 hours to complete 5 days -If renal function continues to worsen, we will have to change therapies Thank you for the consult, we will continue to follow. Sumit Trujillo MD [facility] ([facility] O: [phone] F: [phone]
[2022-03-08] MEDS: FUROSEMIDE 40 MG/4 ML INJ IV SCH (06:57)
[2022-03-08] MEDS: HEPARIN 5,000 UNIT/1 ML VIAL SUB-Q SCH ×3 (06:57→21:21)
[2022-03-08] MEDS: oxyCODONE /ACETAMINOPHEN 5-325MG TAB PO PRN ×2 (08:30→15:02)
[2022-03-08] MEDS: FAMOTIDINE 10 MG TAB PO SCH ×2 (09:33→21:21)
[2022-03-08] MEDS: NITROFURANTOIN MONOHYD/M-CRYST 100 MG CAP PO SCH (09:37)
[2022-03-08 10:03] LABS: Basophils # (Auto) 0.1 K/mm3 (0.0-0.1); Basophils % (Auto) 0.7 % (0.0-1.8); Eosinophils # (Auto) 0.2 K/mm3 (0.0-0.4); Hematocrit 41.7 % (30.3-42.9); Hemoglobin 13.3 gm/dl (10.1-14.3); Lymphocytes # (Auto) 0.9 K/mm3 (1.2-5.4); Lymphocytes % (Auto) 12.2 % (13.4-35.0); Mean Corpuscular HGB Conc 32 % (30-34); Mean Corpuscular Volume 91 fl (79-97); Monocytes # (Auto) 0.4 K/mm3 (0.0-0.8); Monocytes % (Auto) 4.6 % (0.0-7.3); Platelet Count 207 K/mm3 (140-440); Red Blood Count 4.57 M/mm3 (3.65-5.03); Red Cell Distribution Width 15.9 % (13.2-15.2)
[2022-03-08] MEDS: SENNOSIDES/DOCUSATE SODIUM 8.6/50 MG TAB PO SCH ×2 (10:15→23:00)
[2022-03-08 10:21] LABS: Calcium 9.3 mg/dL (8.4-10.2)
--- NOTE | 2022-03-08 10:38 | Progress Note ---
Assessment and Plan - Patient Problems (1) Acute exacerbation of congestive heart failure Current Visit: Yes Status: Acute Qualifiers: Heart failure type: combined systolic and diastolic Qualified Code(s): I50.43 - Acute on chronic combined systolic (congestive) and diastolic (congestive) heart failure Plan to address problem: Cardiology input appreciated. Preserved ejection fraction with severe pulmonary hypertension. Continue gentle diuresis and monitor volume status. 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 Will be cautious with diuresis. Follow-up electrolytes and renal function (4) Hypertensive chronic kidney disease with stage 1 through stage 4 chronic kidney disease, or unspecified chronic kidney disease Current Visit: Yes Status: Acute Plan to address problem: Follow-up blood pressure on current medications. Subjective Date of service: 03/08/22 Principal diagnosis: Hypoxic respiratory failure Interval history: Patient seen lying in bed. She has no complaints. Shortness of breath was improving but on walking to the bathroom yesterday, she almost passed out on getting back to bed. She was very dyspneic.. No chest pain. No nausea vomit ing Objective - Exam Narrative Exam: Morbidly obese elderly -[place] female lying in bed in no acute respiratory distress at rest. HEENT: NCAT, pink oral mucous membrane Neck: Supple, no venous distention CVS: S1S2 RRR with no murmur, rub or gallop Chest: Clear to auscultation but breath sounds diminished in the lower zones Abdomen: Protuberant, soft, nontender, no organomegaly, bowel sounds are present Extremities: No edema Genitourinary deferred Skin warm and dry with hyperpigmented patches in legs and feet with scaling. Neuro: Awake, alert no focal deficits - Vital Signs Vital signs: Vital Signs - 12hr 03/08/22 03/08/22 04:00 08:08 Temperature 98.2 F Pulse Rate 95 H Respiratory 18 Rate Blood Pressure 132/93 O2 Sat by Pulse 97 91 Oximetry - Lab 03/08/22 09:44 03/08/22 09:44 Most recent lab results Calcium 9.3 mg/dL (8.4-10.2) 03/08/22 09:44 Urine Creatinine 41.2 mg/dL (0.1-20.0) H 03/04/22 17:35 Urine Sodium 126 mmol/L 03/04/22 17:35 Urine Total Protein 16 mg/dL (5-11.8) H 03/04/22 17:35 Medications & Allergies - Medications Allergies/Adverse Reactions: Allergies iodine Allergy (Verified 03/03/22 12:49) Anaphylaxis Penicillins Allergy (Verified 03/03/22 12:49) Anaphylaxis shellfish derived Allergy (Verified 03/03/22 12:49) Anaphylaxis Home Medications: Home Medications Medication Instructions Recorded Confirmed Last Taken Type Acetaminophen [Non-Aspirin Extra 500 mg PO Q8HR PRN 03/04/22 03/04/22 03/01/22 History Strength] Aspirin EC 325 mg PO 4XW 03/04/22 03/04/22 03/02/22 History Hydrocodone-Acetamin 2.5-325 5 - 325 mg PO Q6HR PRN 03/04/22 03/04/22 03/02/22 History Mucus Relief ER 600 mg PO BID 03/04/22 03/05/22 03/02/22 History Omeprazole 40 mg PO DAILY 03/04/22 03/05/22 03/02/22 History Phenazopyridine 200 mg PO TID 03/04/22 03/04/22 03/03/22 History Senna Plus Tablet 8.6 - 50 mg PO BID MDD CONSTIPATION 03/04/22 03/05/22 03/02/22 History Diclofenac Sodium ER 75 mg PO Q8HR 03/05/22 03/05/22 03/02/22 History Nifedipine ER 60 mg PO DAILY 03/05/22 03/05/22 03/02/22 History Vitamin D3 25 mg PO DAILY 03/05/22 03/05/22 03/02/22 History Active Medications: Generic Name Dose Route Start Last Admin Trade Name Freq PRN Reason Stop Dose Admin Acetaminophen 650 mg 03/03/22 20:28 03/06/22 04:29 Acetaminophen 325 Mg Tab PO 650 mg Q4H PRN Administration Pain MILD(1-3)/Fever >100.5/HOFFMAN Famotidine 10 mg 03/08/22 10:00 03/08/22 09:33 Famotidine 10 Mg Tab PO 10 mg BID VERN Administration Furosemide 40 mg 03/06/22 18:00 03/08/22 06:57 Furosemide 40 Mg/4 Ml Inj IV 40 mg 0600,1800 VERN Administration Heparin Sodium (Porcine) 5,000 unit 03/04/22 14:00 03/08/22 06:57 Heparin 5,000 Unit/1 Ml Vial SUB-Q 5,000 unit Q8HR VERN Administration Metoclopramide HCl 10 mg 03/03/22 20:28 03/06/22 04:29 Metoclopramide 10 Mg/2 Ml Inj IV 10 mg Q6H PRN Administration Nausea And Vomiting Morphine Sulfate 2 mg 03/03/22 20:28 Morphine 2 Mg/1 Ml Inj IV Q4H PRN Pain, Moderate (4-6) Nitrofurantoin Macrocrystals 100 mg 03/06/22 22:00 03/08/22 09:37 Nitrofurantoin Monohyd/M-Cryst 100 Mg Cap PO 03/11/22 10:01 100 mg Q12HR VERN Administration Ondansetron HCl 4 mg 03/03/22 20:28 Ondansetron 4 Mg/2 Ml Inj IV Q8H PRN Nausea And Vomiting Oxycodone/Acetaminophen 1 tab 03/03/22 20:28 03/08/22 08:30 Oxycodone /Acetaminophen 5-325mg Tab PO 1 tab Q6H PRN Administration Pain, Moderate (4-6) Polyethylene Glycol 17 gm 03/06/22 11:00 Polyethylene Glycol 3350 17 Gm Powder PO QDAY PRN Constipation Senna/Docusate Sodium 2 tab 03/06/22 11:00 03/08/22 10:15 Sennosides/Docusate Sodium 8.6/50 Mg Tab PO Not Given Q12H VERN Sodium Chloride 10 ml 03/03/22 22:00 03/08/22 09:34 Sodium Chloride 0.9% 10 Ml Flush Syringe IV 10 ml BID VERN Administration Sodium Chloride 10 ml 03/03/22 20:28 Sodium Chloride 0.9% 10 Ml Flush Syringe IV PRN PRN LINE FLUSH
--- NOTE | 2022-03-08 10:57 | Progress Note ---
Assessment and Plan 71 y/o female with severe pulm htn and Eliseo with acute on chronic respiratory failure. 03/08/22: Last time this patient was seen in our office was 2015. At that time she only had mild COPD. Unable to obtain repeat divina at this time. She did not smoke since being on hospice care and was recently discharged secondary to lack of further decline (although one could argue for it now). Will attempt steroid therapy to see if this improves oxygen requirement, however as stated earlier, patient may benefit from right heart cath with drug study if no improvement on steroids. V/Q done but was not ordered looking for acute PE but more for concern for CTEPH. Guarded prognosis. 03/07/22: No new recs. Will find old office notes today to see the last time we saw this patient. 03/06/22: CXR read by rads suggest unchanged edema. Agree with continued diuresis and fluid restriction. Wean Vent for sats >88%. Continue NIV therapy at night 1. Cardiology following. This degree of Pulm HTN is not seen with just ELISEO alone, especially in someone who is compliant with therapy. Defer to cards but would consider right heart cath if not already done previously 2. Continue bipap therapy at night as well as PRN during the day. Patient does not know her settings for her machine at home and my office did not manipulate these numbers last. Will titrate sat of >88% and comfort 3. Agree with continued diuresis, CXR shows continued vascular congestion, maybe slightly better, maybe 4. Wean FiO2 for sats >88% Subjective Date of service: 03/08/22 Principal diagnosis: Hypoxic respiratory failure Interval history: Remains on Venti mask and NIV therapy at night. Objective Vital Signs - 12hr 03/08/22 03/08/22 04:00 08:08 Temperature 98.2 F Pulse Rate 95 H Respiratory 18 Rate Blood Pressure 132/93 O2 Sat by Pulse 97 91 Oximetry Constitutional: no acute distress, alert Eyes: non-icteric ENT: oropharynx moist Neck: supple, other (large in circumference) Effort: mildly labored Ascultation: Bilateral: rales Percussion: Bilateral: not dull Cardiovascular: regular rate and rhythm Gastrointestinal: normoactive bowel sounds, soft CBC and BMP: 03/08/22 09:44 03/08/22 09:44 Abnormal lab findings: Abnormal Labs 07/03/03/22 03/03/22 13:34 13:34 13:34 RDW 16.1 H Lymph % (Auto) 9.7 L Lymph # (Auto) 0.8 L Seg Neutrophils % 84.6 H Potassium BUN 47 H Creatinine 1.7 H Glucose 101 H ALT NT-Pro-B Natriuret Pep 74815 H Total Protein 9.1 H Albumin 3.5 L Urine WBC (Auto) Urine Creatinine Urine Total Protein 03/04/22 03/04/22 03/04/22 02:51 03:05 17:35 RDW 16.0 H Lymph % (Auto) 8.9 L Lymph # (Auto) 0.8 L Seg Neutrophils % 84.1 H Potassium BUN 46 H Creatinine 1.8 H Glucose 119 H ALT 6 L NT-Pro-B Natriuret Pep Total Protein 8.4 H Albumin 3.4 L Urine WBC (Auto) 11.0 H Urine Creatinine Urine Total Protein 03/04/22 03/05/22 03/05/22 17:35 12:08 15:18 RDW Lymph % (Auto) Lymph # (Auto) Seg Neutrophils % Potassium 6.4 H* D BUN 55 H 55 H Creatinine 2.0 H 2.0 H Glucose 120 H 116 H ALT NT-Pro-B Natriuret Pep Total Protein Albumin Urine WBC (Auto) Urine Creatinine 41.2 H Urine Total Protein 16 H 03/06/22 03/08/22 03/08/22 05:25 09:44 09:44 RDW 15.9 H Lymph % (Auto) 12.2 L Lymph # (Auto) 0.9 L Seg Neutrophils % 79.5 H Potassium BUN 58 H 69 H Creatinine 2.1 H 2.3 H Glucose 103 H ALT NT-Pro-B Natriuret Pep Total Protein Albumin Urine WBC (Auto) Urine Creatinine Urine Total Protein
--- NOTE | 2022-03-08 11:27 | Progress Note ---
Assessment and Plan Cultures: Urine culture ESBL E. coli A/P: 71-year-old female past medical history chronic CHF now with: #ESBL E. coli UTI: Sensitive to Macrobid #RIN on CKD: Renally dose medications #Acute CHF: Presented with shortness of breath, vascular congestion #Penicillin allergy Recs: -Stop nitrofurantoin due to worsening renal function -Started ertapenem 500 mg every 24 hours. Complete 5 days antibiotics from start of nitrofurantoin Thank you for the consult, we will continue to follow. Sumit Trujillo MD [facility] ([facility]) O: [phone] F: [phone] Subjective Date of service: 03/08/22 Principal diagnosis: Hypoxic respiratory failure Interval history: Afebrile, normal white count. No new issues. Objective - Exam Narrative Exam: Physical Exam: Constitutional: Alert, cooperative. No acute distress Head, Ears, Nose: Normocephalic, atraumatic. External ears, nose normal Eyes: Conjunctivae/corneas clear. No icterus. No ptosis. Neck: Supple, no meningeal signs Oral: dentition fair, no thrush Cardiovascular: S1, S2 normal. Respiratory: Good air entry, clear to auscultation bilaterally GI: Soft, non-tender; bowel sounds normal. No peritoneal signs. Musculoskeletal: No pedal edema, no cyanosis. Skin: No rash or abscess Hem/Lymphatic: No palpable cervical or supraclavicular nodes. No lymphangitis Psych: Mood ok. Affect normal Neurological: Awake, alert, oriented. No gross abnormality - Constitutional Vitals: Vital Signs Temp Pulse Resp BP Pulse Ox 98.2 F 95 H 18 132/93 91 03/08/22 04:00 03/08/22 04:00 03/08/22 04:00 03/08/22 04:00 03/08/22 08:08 Temperature -Last 24 Hours Temperature 98.2 F Temperature 98.5 F Temperature 98.5 F - Labs CBC & Chem 7: 03/08/22 09:44 03/08/22 09:44 Labs: Abnormal lab results 03/08/22 03/08/22 Range/Units 09:44 09:44 RDW 15.9 H (13.2-15.2) % Lymph % (Auto) 12.2 L (13.4-35.0) % Lymph # (Auto) 0.9 L (1.2-5.4) K/mm3 Seg Neutrophils % 79.5 H (40.0-70.0) % BUN 69 H (7-17) mg/dL Creatinine 2.3 H (0.6-1.2) mg/dL
--- NOTE | 2022-03-08 12:45 | Progress Note ---
Assessment and Plan Assessment and plan: #Severe pulmonary hypertension #Acute on chronic hypoxic respiratory failure - baseline oxygen requirements: 5 L nasal cannula - supplemental oxygen: 15L venturi mask; will attempt to wean as tolerated Pulmonology following; assistance appreciated - Continue protocol: continue pulse oximetry, wean oxygen as tolerated, ordered incentive spirometry and educated patient on how to use it and its importance. Continue IV Lasix 40 mg twice daily for volume reduction. - Unremarkable LE dopplers. V/Q scan low probability for PE - continue IV steroids; may benefit from R heart cath for further evaluation #Acute on chronic diastolic heart failure #cor pulmonale - Continue CHF exacerbation protocol: Telemetry, Strict I/O, monitor urine output every shift, daily weights, afterload reduction, low-sodium diet, and fluid restriction of approximately 1.5 mL/day, IV Lasix 40 mg twice daily - ProBNP on admission: 875 - Cardiology following; appreciate recs - TTE (03/04/2022) revealing EF 50-55% with normal-sized LV, lower limits of normal LV systolic function, borderline concentric LVH, severely dilated RV, severely reduced RV systolic function, mildly dilated LA, severely dilated RA, RVSP >95 mmHg, and severe pulmonary hypertension. #ESBL UTI/cystitis without hematuria Urinalysis revealing large leukocyte esterase, WBC 11, 1+ bacteria, few budding yeast. - Macrobid discontinued due to worsening renal function, ertapenem started per ID recs Infectious disease following, assistance appreciated Continue precautions #Atypical chest painruled out Negative troponin x2 Likely secondary to volume overload in the setting of acute heart failure. #RIN on CKD stage III Creatinine 1.8 (baseline unknown), now 2.3 today Renally dose meds and avoid nephrotoxic drugs. Nephrology following; appreciate recs #Mild protein caloric malnutrition Albumin 3.4 Continue dietary supplementation #Morbid obesity #Weight loss counseling #Exercise counseling - BMI 53.1 - Counseled patient on the importance of weight loss, incorporating exercise, and dietary changes (lean meats, fresh fruits and vegetables, and water intake). Patient expresses understanding. - Time: +15 min #Advanced care planning -Disease education conducted, care plan discussed, diagnoses discussed, prognosis discussed, and patient acknowledges understanding with care plan -Time: +30 min History Interval history: No acute events overnight. Patient tolerated BiPAP. Discussed current laboratory and imaging findings. Patient expressed wanting to know if there is anything further that could be done to help with her severe pulmonary hypertension. She is otherwise stable and has no complaints at this time. Hospitalist Physical - Physical exam Narrative exam: GENERAL: Obese woman. Sitting on the bedside commode in no acute distress. HEENT: Venturi mask at 15 L/min. NECK: Supple. CHEST/LUNGS: Decreased breath sounds bilaterally. HEART/CARDIOVASCULAR: RRR. No murmur, rubs or gallops appreciated. ABDOMEN: +BS. NT/ND. SKIN: No rashes noted. NEURO: No focal motor deficit. Follows all commands. MUSCULOSKELETAL: No joint effusion EXTREMITIES: No cyanosis, clubbing or edema. PSYCH: Cooperative. - Constitutional Vitals: Temp Pulse Resp BP Pulse Ox 98.2 F 95 H 18 132/93 91 03/08/22 04:00 03/08/22 04:00 03/08/22 04:00 03/08/22 04:00 03/08/22 08:08 General appearance: Present: mild distress, well-nourished, obese HEART Score - HEART Score Age: > 65 Risk factors: 1-2 risk factors Troponin: Troponin T < 0.010 ng/mL (0.00-0.029) 03/03/22 13:34 Troponin: < normal limit - Critical Actions Critical Actions: 4-6 pts:12-16.6% risk of adverse cardiac event. Should be admitted Results - Labs CBC & Chem 7: 03/08/22 09:44 03/08/22 09:44 Labs: Laboratory Last Values WBC 7.6 K/mm3 (4.5-11.0) 03/08/22 09:44 RBC 4.57 M/mm3 (3.65-5.03) 03/08/22 09:44 Hgb 13.3 gm/dl (10.1-14.3) 03/08/22 09:44 Hct 41.7 % (30.3-42.9) 03/08/22 09:44 MCV 91 fl (79-97) 03/08/22 09:44 MCH 29 pg (28-32) 03/08/22 09:44 MCHC 32 % (30-34) 03/08/22 09:44 RDW 15.9 % (13.2-15.2) H 03/08/22 09:44 Plt Count 207 K/mm3 (140-440) 03/08/22 09:44 Lymph % (Auto) 12.2 % (13.4-35.0) L 03/08/22 09:44 [place] % (Auto) 4.6 % (0.0-7.3) 03/08/22 09:44 Eos % (Auto) 3.0 % (0.0-4.3) 03/08/22 09:44 Baso % (Auto) 0.7 % (0.0-1.8) 03/08/22 09:44 Lymph # (Auto) 0.9 K/mm3 (1.2-5.4) L 03/08/22 09:44 [place] # (Auto) 0.4 K/mm3 (0.0-0.8) 03/08/22 09:44 Eos # (Auto) 0.2 K/mm3 (0.0-0.4) 03/08/22 09:44 Baso # (Auto) 0.1 K/mm3 (0.0-0.1) 03/08/22 09:44 Seg Neutrophils % 79.5 % (40.0-70.0) H 03/08/22 09:44 Seg Neutrophils # 6.0 K/mm3 (1.8-7.7) 03/08/22 09:44 Sodium 139 mmol/L (137-145) 03/08/22 09:44 Potassium 4.7 mmol/L (3.6-5.0) 03/08/22 09:44 Chloride 99.3 mmol/L (98-107) 03/08/22 09:44 Carbon Dioxide 25 mmol/L (22-30) 03/08/22 09:44 Anion Gap 19 mmol/L 03/08/22 09:44 BUN 69 mg/dL (7-17) H 03/08/22 09:44 Creatinine 2.3 mg/dL (0.6-1.2) H 03/08/22 09:44 Estimated GFR 25 ml/min 03/08/22 09:44 BUN/Creatinine Ratio 30 % 03/08/22 09:44 Glucose 94 mg/dL (65-100) 03/08/22 09:44 Calcium 9.3 mg/dL (8.4-10.2) 03/08/22 09:44 Total Bilirubin 0.60 mg/dL (0.1-1.2) 03/04/22 02:51 AST 12 units/L (5-40) 03/04/22 02:51 ALT 6 units/L (7-56) L 03/04/22 02:51 Alkaline Phosphatase 91 units/L (35-129) 03/04/22 02:51 Troponin T < 0.010 ng/mL (0.00-0.029) 03/03/22 13:34 NT-Pro-B Natriuret Pep 46910 pg/mL (0-900) H 03/03/22 13:34 Total Protein 8.4 g/dL (6.3-8.2) H 03/04/22 02:51 Albumin 3.4 g/dL (3.9-5) L 03/04/22 02:51 Albumin/Globulin Ratio 0.7 % 03/04/22 02:51 Urine Color Yellow (Yellow) 03/04/22 17:35 Urine Turbidity Slightly-cloudy (Clear) 03/04/22 17:35 Urine pH 6.0 (5.0-7.0) 03/04/22 17:35 Ur Specific [place] 1.008 (1.003-1.030) 03/04/22 17:35 Urine Protein <15 mg/dl mg/dL (Negative) 03/04/22 17:35 Urine Glucose (UA) Neg mg/dL (Negative) 03/04/22 17:35 Urine Ketones Neg mg/dL (Negative) 03/04/22 17:35 Urine Blood Mod (Negative) 03/04/22 17:35 Urine Nitrite Neg (Negative) 03/04/22 17:35 Urine Bilirubin Neg (Negative) 03/04/22 17:35 Urine Urobilinogen < 2.0 mg/dL (<2.0) 03/04/22 17:35 Ur Leukocyte Esterase Lg (Negative) 03/04/22 17:35 Urine WBC (Auto) 11.0 /HPF (0.0-6.0) H 03/04/22 17:35 Urine RBC (Auto) 2.0 /HPF (0.0-6.0) 03/04/22 17:35 U Epithel Cells (Auto) 1.0 /HPF (0-13.0) 03/04/22 17:35 Urine Bacteria (Auto) 1+ /HPF (Negative) 03/04/22 17:35 Urine Mucus Few /HPF 03/04/22 17:35 Urine Yeast (Budding) Few /HPF 03/04/22 17:35 Urine Creatinine 41.2 mg/dL (0.1-20.0) H 03/04/22 17:35 Urine Sodium 126 mmol/L 03/04/22 17:35 Urine Total Protein 16 mg/dL (5-11.8) H 03/04/22 17:35 Coronavirus (PCR) Negative (Negative) 03/04/22 09:57 Gale/IV: Voiding Method External Female Catheter Active Medications - Current Medications Current Medications: Generic Name Dose Route Start Last Admin Trade Name Freq PRN Reason Stop Dose Admin Acetaminophen 650 mg 03/03/22 20:28 03/06/22 04:29 Acetaminophen 325 Mg Tab PO 650 mg Q4H PRN Administration Pain MILD(1-3)/Fever >100.5/HOFFMAN Famotidine 10 mg 03/08/22 10:00 03/08/22 09:33 Famotidine 10 Mg Tab PO 10 mg BID VERN Administration Furosemide 40 mg 03/09/22 10:00 Furosemide 40 Mg/4 Ml Inj IV DAILY [facility] Heparin Sodium (Porcine) 5,000 unit 03/04/22 14:00 03/08/22 06:57 Heparin 5,000 Unit/1 Ml Vial SUB-Q 5,000 unit Q8HR VERN Administration Ertapenem 0.5 gm/ Sodium 50 mls @ 100 mls/hr 03/08/22 14:00 Chloride IV 03/10/22 14:29 Q24H [facility] Methylprednisolone Sodium Succinate 60 mg 03/08/22 12:00 Methylprednisolone Sod Succinate 125 Mg/2 Ml Inj IV Q6HR [facility] Metoclopramide HCl 10 mg 03/03/22 20:28 03/06/22 04:29 Metoclopramide 10 Mg/2 Ml Inj IV 10 mg Q6H PRN Administration Nausea And Vomiting Morphine Sulfate 2 mg 03/03/22 20:28 Morphine 2 Mg/1 Ml Inj IV Q4H PRN Pain, Moderate (4-6) Ondansetron HCl 4 mg 03/03/22 20:28 Ondansetron 4 Mg/2 Ml Inj IV Q8H PRN Nausea And Vomiting Oxycodone/Acetaminophen 1 tab 03/03/22 20:28 03/08/22 08:30 Oxycodone /Acetaminophen 5-325mg Tab PO 1 tab Q6H PRN Administration Pain, Moderate (4-6) Polyethylene Glycol 17 gm 03/06/22 11:00 Polyethylene Glycol 3350 17 Gm Powder PO QDAY PRN Constipation Senna/Docusate Sodium 2 tab 03/06/22 11:00 03/08/22 10:15 Sennosides/Docusate Sodium 8.6/50 Mg Tab PO Not Given Q12H VERN Sodium Chloride 10 ml 03/03/22 22:00 03/08/22 09:34 Sodium Chloride 0.9% 10 Ml Flush Syringe IV 10 ml BID VERN Administration Sodium Chloride 10 ml 03/03/22 20:28 Sodium Chloride 0.9% 10 Ml Flush Syringe IV PRN PRN LINE FLUSH
--- NOTE | 2022-03-08 13:55 | Progress Note ---
Assessment and Plan - Patient Problems (1) Interstitial edema Current Visit: Yes Status: Acute Plan to address problem: 71-year-old woman with morbid obesity, obstructive sleep apnea, hypertension, presents with shortness of breath and chest x-ray evidence of mild to moderate interstitial edema. Previous invasive cardiac work-up 10 years ago showed no significant coronary artery disease. Prior left ventricular systolic function assessment was well-preserved at 50%. Echocardiogram on this presentation demonstrates well-preserved left ventricular systolic function. Major finding on the echocardiogram is the presence of severe cor pulmonale with dilated right heart chambers, moderate to severe tricuspid regurgitation and severe pulmonary hypertension with pulmonary artery systolic pressures approaching systemic levels. We will defer to pulmonary for management of her chronic lung disease which is a primary pathology and etiology of chronic dyspnea and hypoxemia. Subjective Date of service: 03/08/22 Principal diagnosis: Hypoxic respiratory failure Interval history: Patient has no new cardiac complaints, on secured entrance monitor there is a stable sinus rhythm at 98. Objective Vital Signs Temp Pulse Resp BP BP Pulse Ox 03/08/22 08:08 91 03/08/22 04:00 98.2 F 95 H 18 132/93 97 03/07/22 22:00 82 32 H 96 03/07/22 20:46 98.5 F 114 H 18 142/64 91 03/07/22 19:44 111 H 03/07/22 16:46 98.5 F 74 130/84 98 - Physical Examination HEENT: Positive: PERRL Neck: Positive: neck supple Cardiac: Positive: Reg Rate and Rhythm Lungs: Positive: Decreased Breath Sounds Neuro: Positive: Grossly Intact Abdomen: Positive: Soft Skin: Positive: Clear Extremities: Present: edema (Minimal) - Labs and Meds CBC 03/08/22 Range/Units 09:44 WBC 7.6 (4.5-11.0) K/mm3 RBC 4.57 (3.65-5.03) M/mm3 Hgb 13.3 (10.1-14.3) gm/dl Hct 41.7 (30.3-42.9) % Plt Count 207 (140-440) K/mm3 Lymph # (Auto) 0.9 L (1.2-5.4) K/mm3 [place] # (Auto) 0.4 (0.0-0.8) K/mm3 Eos # (Auto) 0.2 (0.0-0.4) K/mm3 Baso # (Auto) 0.1 (0.0-0.1) K/mm3 Comprehensive Metabolic Panel 03/08/22 Range/Units 09:44 Sodium 139 (137-145) mmol/L Potassium 4.7 (3.6-5.0) mmol/L Chloride 99.3 (98-107) mmol/L Carbon Dioxide 25 (22-30) mmol/L BUN 69 H (7-17) mg/dL Creatinine 2.3 H (0.6-1.2) mg/dL Glucose 94 (65-100) mg/dL Calcium 9.3 (8.4-10.2) mg/dL - Imaging and Cardiology EKG: report reviewed (Sinus tachycardia no acute ST-T wave changes)
[2022-03-08] MEDS: methylPREDNISolone Sod Succinate 125 MG/2 ML INJ IV SCH ×2 (14:19→19:08)
[2022-03-08] MEDS: ERTAPENEM 0.5 GM in SODIUM CHLORIDE 0.9% 50 ML IV SCH (14:19)
[2022-03-08 15:14] LABS: Calcium 9.4 mg/dL (8.4-10.2)
[2022-03-09] MEDS: methylPREDNISolone Sod Succinate 125 MG/2 ML INJ IV SCH ×4 (01:07→17:10)
--- NOTE | 2022-03-09 05:57 | Progress Note ---
Assessment and Plan 71 y/o female with severe pulm htn and Eliseo with acute on chronic respiratory failure. 03/09/22: Without an exact cause for her Pulm HTN, would be difficult to say if there is anything else that could be done for her severe pulm HTN. If this is truly worsening of lung disease, given the rate that it has happened, even treatment of COPD would not improve quality of life significantly. If she has developed type 1 pulmonary HTN, she would need at least 2-3 drug therapy and she may not tolerate this as well given her age and current clinical status. A right and left heart cath would be necessary before determination of this degree of therapy. Do not disagree with hospice referral again. Has been on steroid therapy less than 24 hours. Would continue to see if any benefit. Prognosis still remains guarded. 03/08/22: Last time this patient was seen in our office was 2015. At that time she only had mild COPD. Unable to obtain repeat divina at this time. She did not smoke since being on hospice care and was recently discharged secondary to lack of further decline (although one could argue for it now). Will attempt steroid therapy to see if this improves oxygen requirement, however as stated earlier, patient may benefit from right heart cath with drug study if no improvement on steroids. V/Q done but was not ordered looking for acute PE but more for concern for CTEPH. Guarded prognosis. 03/07/22: No new recs. Will find old office notes today to see the last time we saw this patient. 03/06/22: CXR read by rads suggest unchanged edema. Agree with continued diuresis and fluid restriction. Wean Vent for sats >88%. Continue NIV therapy at night 1. Cardiology following. This degree of Pulm HTN is not seen with just ELISEO alone, especially in someone who is compliant with therapy. Defer to cards but would consider right heart cath if not already done previously 2. Continue bipap therapy at night as well as PRN during the day. Patient does not know her settings for her machine at home and my office did not manipulate these numbers last. Will titrate sat of >88% and comfort 3. Agree with continued diuresis, CXR shows continued vascular congestion, maybe slightly better, maybe 4. Wean FiO2 for sats >88% Subjective Date of service: 03/09/22 Principal diagnosis: Hypoxic respiratory failure Interval history: Chart reviewed. Per CM note, patient and family interested in hospice again. Reviewed IMS note from yesterday as well. Objective Vital Signs - 12hr 03/08/22 03/08/22 03/08/22 19:46 20:10 20:46 Temperature 98.3 F Pulse Rate 109 H 110 H Respiratory 20 Rate Blood Pressure 140/86 O2 Sat by Pulse 91 91 Oximetry 03/09/22 00:16 Temperature Pulse Rate 102 H Respiratory 28 H Rate Blood Pressure O2 Sat by Pulse 92 Oximetry Constitutional: no acute distress, alert Eyes: non-icteric ENT: oropharynx moist Neck: supple, other (large in circumference) Effort: mildly labored Ascultation: Bilateral: rales Percussion: Bilateral: not dull Cardiovascular: regular rate and rhythm Gastrointestinal: normoactive bowel sounds, soft CBC and BMP: 03/08/22 09:44 03/08/22 14:36 Abnormal lab findings: Abnormal Labs 03/03/22 03/03/22 03/03/22 13:34 13:34 13:34 RDW 16.1 H Lymph % (Auto) 9.7 L Lymph # (Auto) 0.8 L Seg Neutrophils % 84.6 H Potassium BUN 47 H Creatinine 1.7 H Glucose 101 H ALT NT-Pro-B Natriuret Pep 55675 H Total Protein 9.1 H Albumin 3.5 L Urine WBC (Auto) Urine Creatinine Urine Total Protein 03/04/22 03/04/22 03/04/22 02:51 03:05 17:35 RDW 16.0 H Lymph % (Auto) 8.9 L Lymph # (Auto) 0.8 L Seg Neutrophils % 84.1 H Potassium BUN 46 H Creatinine 1.8 H Glucose 119 H ALT 6 L NT-Pro-B Natriuret Pep Total Protein 8.4 H Albumin 3.4 L Urine WBC (Auto) 11.0 H Urine Creatinine Urine Total Protein 03/04/22 03/05/22 03/05/22 17:35 12:08 15:18 RDW Lymph % (Auto) Lymph # (Auto) Seg Neutrophils % Potassium 6.4 H* D BUN 55 H 55 H Creatinine 2.0 H 2.0 H Glucose 120 H 116 H ALT NT-Pro-B Natriuret Pep Total Protein Albumin Urine WBC (Auto) Urine Creatinine 41.2 H Urine Total Protein 16 H 07/03/08/22 03/08/22 05:25 09:44 09:44 RDW 15.9 H Lymph % (Auto) 12.2 L Lymph # (Auto) 0.9 L Seg Neutrophils % 79.5 H Potassium BUN 58 H 69 H Creatinine 2.1 H 2.3 H Glucose 103 H ALT NT-Pro-B Natriuret Pep Total Protein Albumin Urine WBC (Auto) Urine Creatinine Urine Total Protein 03/08/22 14:36 RDW Lymph % (Auto) Lymph # (Auto) Seg Neutrophils % Potassium BUN 70 H Creatinine 2.4 H Glucose 125 H ALT NT-Pro-B Natriuret Pep Total Protein Albumin Urine WBC (Auto) Urine Creatinine Urine Total Protein
[2022-03-09 06:24] LABS: Calcium 9.2 mg/dL (8.4-10.2)
[2022-03-09] MEDS: HEPARIN 5,000 UNIT/1 ML VIAL SUB-Q SCH ×3 (06:32→21:17)
--- NOTE | 2022-03-09 08:05 | Progress Note ---
Assessment and Plan Assessment and plan: #Severe pulmonary hypertension #Acute on chronic hypoxic respiratory failure- worsening - baseline oxygen requirements: 5 L nasal cannula - supplemental oxygen: HFNC @ 30L/min, 90% FIO2; will attempt to wean as tolerated Pulmonology following; assistance appreciated - Continue protocol: continue pulse oximetry, wean oxygen as tolerated, ordered incentive spirometry and educated patient on how to use it and its importance. Continue IV Lasix 40 mg twice daily for volume reduction. - Unremarkable LE dopplers. V/Q scan low probability for PE - continue IV steroids; may benefit from R + L heart cath for further evaluation #Acute on chronic diastolic heart failure #cor pulmonale - Continue CHF exacerbation protocol: Telemetry, Strict I/O, monitor urine o utput every shift, daily weights, afterload reduction, low-sodium diet, and fluid restriction of approximately 1.5 mL/day - diuretics changed from IV to PO - ProBNP on admission: ,875 - Cardiology following; appreciate recs - TTE (03/04/2022) revealing EF 50-55% with normal-sized LV, lower limits of normal LV systolic function, borderline concentric LVH, severely dilated RV, severely reduced RV systolic function, mildly dilated LA, severely dilated RA, RVSP >95 mmHg, and severe pulmonary hypertension. #ESBL UTI/cystitis without hematuria Urinalysis revealing large leukocyte esterase, WBC 11, 1+ bacteria, few budding yeast. - Macrobid discontinued due to worsening renal function, ertapenem x3 doses started per ID recs Infectious disease following, assistance appreciated Continue precautions #Atypical chest painruled out Negative troponin x2 Likely secondary to volume overload in the setting of acute heart failure. #RIN on CKD stage III Creatinine 1.8 (baseline unknown), now 2.5 today - diuretics changed to PO due to worsening SCr, will monitor Renally dose meds and avoid nephrotoxic drugs Nephrology following; appreciate recs #Mild protein caloric malnutrition Albumin 3.4 Continue dietary supplementation #Morbid obesity #Weight loss counseling #Exercise counseling - BMI 53.1 - Counseled patient on the importance of weight loss, incorporating exercise, and dietary changes (lean meats, fresh fruits and vegetables, and water intake). Patient expresses understanding. - Time: +15 min #Advanced care planning -Disease education conducted, care plan discussed, diagnoses discussed, prognosis discussed, and patient acknowledges understanding with care plan -Time: +30 min Critical Care Billing: The high probability of a clinically significant, sudden or life threatening deterioration of the [respiratory] system(s) required my full and direct attention, intervention and personal management. The aggregate critical care time was [60] minutes. This time is in addition to time spent performing repo rted procedures but includes the following: [x] Data Review and interpretation [x] Patient assessment and monitoring of vital signs [x] Documentation [x] Medication orders and management History Interval history: No acute events overnight. Patient tolerated BiPAP overnight. Currently on high flow nasal cannula. We discussed her increased oxygen requirements and that the neck step would be mechanical ventilation. Explained the risk and benefits to the patient given her clinical situation. If the need arises, patient would like to be intubated. Hospitalist Physical - Physical exam Narrative exam: GENERAL: Obese woman. Sitting on the bedside commode in no acute distress. HEENT: High flow nasal cannula. NECK: Supple. CHEST/LUNGS: Prolonged expiratory phase, otherwise CTAB. HEART/CARDIOVASCULAR: RRR. No murmur, rubs or gallops appreciated. ABDOMEN: +BS. NT/ND. NEURO: No focal motor deficit. Follows all commands. MUSCULOSKELETAL: No joint effusion EXTREMITIES: BLE chronic venous stasis changes. No clubbing or edema. PSYCH: Cooperative. - Constitutional Vitals: Temp Pulse Resp BP Pulse Ox 98.3 F 102 H 28 H 140/86 92 03/08/22 20:10 03/09/22 00:16 03/09/22 00:16 03/08/22 20:10 03/09/22 00:16 General appearance: Present: mild distress, well-nourished, obese HEART Score - HEART Score Age: > 65 Risk factors: 1-2 risk factors Troponin: Troponin T < 0.010 ng/mL (0.00-0.029) 03/03/22 13:34 Troponin: < normal limit - Critical Actions Critical Actions: 4-6 pts:12-16.6% risk of adverse cardiac event. Should be admitted Results - Labs CBC & Chem 7: 03/08/22 09:44 03/09/22 05:43 Labs: Laboratory Last Values WBC 7.6 K/mm3 (4.5-11.0) 03/08/22 09:44 RBC 4.57 M/mm3 (3.65-5.03) 03/08/22 09:44 Hgb 13.3 gm/dl (10.1-14.3) 03/08/22 09:44 Hct 41.7 % (30.3-42.9) 03/08/22 09:44 MCV 91 fl (79-97) 03/08/22 09:44 MCH 29 pg (28-32) 03/08/22 09:44 MCHC 32 % (30-34) 03/08/22 09:44 RDW 15.9 % (13.2-15.2) H 03/08/22 09:44 Plt Count 207 K/mm3 (140-440) 03/08/22 09:44 Lymph % (Auto) 12.2 % (13.4-35.0) L 03/08/22 09:44 [place] % (Auto) 4.6 % (0.0-7.3) 03/08/22 09:44 Eos % (Auto) 3.0 % (0.0-4.3) 03/08/22 09:44 Baso % (Auto) 0.7 % (0.0-1.8) 03/08/22 09:44 Lymph # (Auto) 0.9 K/mm3 (1.2-5.4) L 03/08/22 09:44 [place] # (Auto) 0.4 K/mm3 (0.0-0.8) 03/08/22 09:44 Eos # (Auto) 0.2 K/mm3 (0.0-0.4) 03/08/22 09:44 Baso # (Auto) 0.1 K/mm3 (0.0-0.1) 03/08/22 09:44 Seg Neutrophils % 79.5 % (40.0-70.0) H 03/08/22 09:44 Seg Neutrophils # 6.0 K/mm3 (1.8-7.7) 03/08/22 09:44 Sodium 137 mmol/L (137-145) 03/09/22 05:43 Potassium 5.3 mmol/L (3.6-5.0) H D 03/09/22 05:43 Chloride 99.2 mmol/L (98-107) 03/09/22 05:43 Carbon Dioxide 24 mmol/L (22-30) 03/09/22 05:43 Anion Gap 19 mmol/L 03/09/22 05:43 BUN 82 mg/dL (7-17) H 03/09/22 05:43 Creatinine 2.5 mg/dL (0.6-1.2) H 03/09/22 05:43 Estimated GFR 23 ml/min 03/09/22 05:43 BUN/Creatinine Ratio 33 % 03/09/22 05:43 Glucose 149 mg/dL (65-100) H 03/09/22 05:43 Calcium 9.2 mg/dL (8.4-10.2) 03/09/22 05:43 Total Bilirubin 0.60 mg/dL (0.1-1.2) 03/04/22 02:51 AST 12 units/L (5-40) 03/04/22 02:51 ALT 6 units/L (7-56) L 03/04/22 02:51 Alkaline Phosphatase 91 units/L (35-129) 03/04/22 02:51 Troponin T < 0.010 ng/mL (0.00-0.029) 03/03/22 13:34 NT-Pro-B Natriuret Pep 80249 pg/mL (0-900) H 03/03/22 13:34 Total Protein 8.4 g/dL (6.3-8.2) H 03/04/22 02:51 Albumin 3.4 g/dL (3.9-5) L 03/04/22 02:51 Albumin/Globulin Ratio 0.7 % 03/04/22 02:51 Urine Color Yellow (Yellow) 03/04/22 17:35 Urine Turbidity Slightly-cloudy (Clear) 03/04/22 17:35 Urine pH 6.0 (5.0-7.0) 03/04/22 17:35 Ur Specific [place] 1.008 (1.003-1.030) 03/04/22 17:35 Urine Protein <15 mg/dl mg/dL (Negative) 03/04/22 17:35 Urine Glucose (UA) Neg mg/dL (Negative) 03/04/22 17:35 Urine Ketones Neg mg/dL (Negative) 03/04/22 17:35 Urine Blood Mod (Negative) 03/04/22 17:35 Urine Nitrite Neg (Negative) 03/04/22 17:35 Urine Bilirubin Neg (Negative) 03/04/22 17:35 Urine Urobilinogen < 2.0 mg/dL (<2.0) 03/04/22 17:35 Ur Leukocyte Esterase Lg (Negative) 03/04/22 17:35 Urine WBC (Auto) 11.0 /HPF (0.0-6.0) H 03/04/22 17:35 Urine RBC (Auto) 2.0 /HPF (0.0-6.0) 03/04/22 17:35 U Epithel Cells (Auto) 1.0 /HPF (0-13.0) 03/04/22 17:35 Urine Bacteria (Auto) 1+ /HPF (Negative) 03/04/22 17:35 Urine Mucus Few /HPF 03/04/22 17:35 Urine Yeast (Budding) Few /HPF 03/04/22 17:35 Urine Creatinine 41.2 mg/dL (0.1-20.0) H 03/04/22 17:35 Urine Sodium 126 mmol/L 03/04/22 17:35 Urine Total Protein 16 mg/dL (5-11.8) H 03/04/22 17:35 Coronavirus (PCR) Negative (Negative) 03/04/22 09:57 Gale/IV: Voiding Method Bedside Commode Active Medications - Current Medications Current Medications: Generic Name Dose Route Start Last Admin Trade Name Freq PRN Reason Stop Dose Admin Acetaminophen 650 mg 03/03/22 20:28 03/06/22 04:29 Acetaminophen 325 Mg Tab PO 650 mg Q4H PRN Administration Pain MILD(1-3)/Fever >100.5/HOFFMAN Famotidine 10 mg 03/08/22 10:00 03/08/22 21:21 Famotidine 10 Mg Tab PO 10 mg BID VERN Administration Furosemide 40 mg 03/09/22 10:00 Furosemide 40 Mg/4 Ml Inj IV DAILY VERN Heparin Sodium (Porcine) 5,000 unit 03/04/22 14:00 03/09/22 06:32 Heparin 5,000 Unit/1 Ml Vial SUB-Q 5,000 unit Q8HR VERN Administration Ertapenem 0.5 gm/ Sodium 50 mls @ 100 mls/hr 03/08/22 14:00 03/08/22 14:19 Chloride IV 03/10/22 14:29 100 mls/hr Q24H VERN Administration Methylprednisolone Sodium Succinate 60 mg 03/08/22 12:00 03/09/22 06:32 Methylprednisolone Sod Succinate 125 Mg/2 Ml Inj IV 60 mg Q6HR VERN Administration Metoclopramide HCl 10 mg 03/03/22 20:28 03/06/22 04:29 Metoclopramide 10 Mg/2 Ml Inj IV 10 mg Q6H PRN Administration Nausea And Vomiting Morphine Sulfate 2 mg 03/03/22 20:28 Morphine 2 Mg/1 Ml Inj IV Q4H PRN Pain, Moderate (4-6) Ondansetron HCl 4 mg 03/03/22 20:28 Ondansetron 4 Mg/2 Ml Inj IV Q8H PRN Nausea And Vomiting Oxycodone/Acetaminophen 1 tab 03/03/22 20:28 03/08/22 15:02 Oxycodone /Acetaminophen 5-325mg Tab PO 1 tab Q6H PRN Administration Pain, Moderate (4-6) Polyethylene Glycol 17 gm 03/06/22 11:00 Polyethylene Glycol 3350 17 Gm Powder PO QDAY PRN Constipation Senna/Docusate Sodium 2 tab 03/06/22 11:00 03/08/22 23:00 Sennosides/Docusate Sodium 8.6/50 Mg Tab PO Not Given Q12H VERN Sodium Chloride 10 ml 03/03/22 22:00 03/08/22 21:21 Sodium Chloride 0.9% 10 Ml Flush Syringe IV 10 ml BID VERN Administration Sodium Chloride 10 ml 03/03/22 20:28 Sodium Chloride 0.9% 10 Ml Flush Syringe IV PRN PRN LINE FLUSH
[2022-03-09] MEDS ORDERED: FUROSEMIDE 40 MG/4 ML INJ IV SCH (10:00)
[2022-03-09] MEDS ORDERED: SODIUM POLYSTYRENE 15 GM/60 ML ORAL LIQD PO SCH (10:30)
--- NOTE | 2022-03-09 10:32 | Progress Note ---
Assessment and Plan - Patient Problems (1) Acute kidney injury Current Visit: Yes Status: Acute Plan to address problem: Prerenal azotemia secondary to acute cardiorenal syndrome/diuresis. Kidney indices are worsening. Steroids also contributing to the severe azotemia. Change to p.o. diuretics. Repeat chest x-ray. (2) Acute exacerbation of congestive heart failure Current Visit: Yes Status: Acute Qualifiers: Heart failure type: combined systolic and diastolic Qualified Code(s): I50.43 - Acute on chronic combined systolic (congestive) and diastolic (congestive) heart failure Plan to address problem: Cardiology input appreciated. Preserved ejection fraction with severe pulmonary hypertension. Change to oral diuretics with worsening azotemia. Repeat chest x-ray. (3) Acute respiratory failure with hypoxia Current Visit: Yes Status: Acute Plan to address problem: Multifactorial. Continue respiratory support/management by access service representative (4) Chronic kidney disease, stage 3b Current Visit: Yes Status: Acute Plan to address problem: Kidney function is a bit worse. Will be cautious with diuresis. Follow-up electrolytes and renal function (5) Hypertensive chronic kidney disease with stage 1 through stage 4 chronic kidney disease, or unspecified chronic kidney disease Current Visit: Yes Status: Acute Plan to address problem: Follow-up blood pressure on current medications. Subjective Date of service: 03/09/22 Principal diagnosis: Hypoxic respiratory failure Interval history: Patient seen lying in bed. She has no complaints. Shortness of breath improving. No chest pain. No nausea vomiting Objective - Exam Narrative Exam: Morbidly obese elderly -[place] female lying in bed in no acute respiratory distress at rest. HEENT: NCAT, pink oral mucous membrane Neck: Supple, no venous distention CVS: S1S2 RRR with no murmur, rub or gallop Chest: Clear to auscultation but breath sounds diminished in the lower zones Abdomen: Obese, soft, nontender, no organomegaly, bowel sounds are present Extremities: No edema Genitourinary deferred Skin warm and dry with hyperpigmented patches in legs and feet with scaling. Neuro: Awake, alert no focal deficits - Vital Signs Vital signs: Vital Signs - 12hr 03/09/22 03/09/22 00:16 09:39 Pulse Rate 102 H Respiratory 28 H Rate O2 Sat by Pulse 92 96 Oximetry - Lab 03/08/22 09:44 03/09/22 05:43 Most recent lab results Calcium 9.2 mg/dL (8.4-10.2) 03/09/22 05:43 Urine Creatinine 41.2 mg/dL (0.1-20.0) H 03/04/22 17:35 Urine Sodium 126 mmol/L 03/04/22 17:35 Urine Total Protein 16 mg/dL (5-11.8) H 03/04/22 17:35 Medications & Allergies - Medications Allergies/Adverse Reactions: Allergies iodine Allergy (Verified 03/03/22 12:49) Anaphylaxis Penicillins Allergy (Verified 03/03/22 12:49) Anaphylaxis shellfish derived Allergy (Verified 03/03/22 12:49) Anaphylaxis Home Medications: Home Medications Medication Instructions Recorded Confirmed Last Taken Type Acetaminophen [Non-Aspirin Extra 500 mg PO Q8HR PRN 03/04/22 03/04/22 03/01/22 History Strength] Aspirin EC 325 mg PO 4XW 03/04/22 03/04/22 03/02/22 History Hydrocodone-Acetamin 2.5-325 5 - 325 mg PO Q6HR PRN 03/04/22 03/04/22 03/02/22 History Mucus Relief ER 600 mg PO BID 03/04/22 03/05/22 03/02/22 History Omeprazole 40 mg PO DAILY 03/04/22 03/05/22 03/02/22 History Phenazopyridine 200 mg PO TID 03/04/22 03/04/22 03/03/22 History Senna Plus Tablet 8.6 - 50 mg PO BID MDD CONSTIPATION 03/04/22 03/05/22 03/02/22 History Diclofenac Sodium ER 75 mg PO Q8HR 03/05/22 03/05/22 03/02/22 History Nifedipine ER 60 mg PO DAILY 03/05/22 03/05/22 03/02/22 History Vitamin D3 25 mg PO DAILY 03/05/22 03/05/22 03/02/22 History Active Medications: Generic Name Dose Route Start Last Admin Trade Name Freq PRN Reason Stop Dose Admin Acetaminophen 650 mg 03/03/22 20:28 03/06/22 04:29 Acetaminophen 325 Mg Tab PO 650 mg Q4H PRN Administration Pain MILD(1-3)/Fever >100.5/HOFFMAN Famotidine 10 mg 03/08/22 10:00 03/08/22 21:21 Famotidine 10 Mg Tab PO 10 mg BID VERN Administration Heparin Sodium (Porcine) 5,000 unit 03/04/22 14:00 03/09/22 06:32 Heparin 5,000 Unit/1 Ml Vial SUB-Q 5,000 unit Q8HR VERN Administration Ertapenem 0.5 gm/ Sodium 50 mls @ 100 mls/hr 03/08/22 14:00 03/08/22 14:19 Chloride IV 03/10/22 14:29 100 mls/hr Q24H VERN Administration Methylprednisolone Sodium Succinate 60 mg 03/08/22 12:00 03/09/22 06:32 Methylprednisolone Sod Succinate 125 Mg/2 Ml Inj IV 60 mg Q6HR VERN Administration Metoclopramide HCl 10 mg 03/03/22 20:28 03/06/22 04:29 Metoclopramide 10 Mg/2 Ml Inj IV 10 mg Q6H PRN Administration Nausea And Vomiting Morphine Sulfate 2 mg 03/03/22 20:28 Morphine 2 Mg/1 Ml Inj IV Q4H PRN Pain, Moderate (4-6) Ondansetron HCl 4 mg 03/03/22 20:28 Ondansetron 4 Mg/2 Ml Inj IV Q8H PRN Nausea And Vomiting Oxycodone/Acetaminophen 1 tab 03/03/22 20:28 03/08/22 15:02 Oxycodone /Acetaminophen 5-325mg Tab PO 1 tab Q6H PRN Administration Pain, Moderate (4-6) Polyethylene Glycol 17 gm 03/06/22 11:00 Polyethylene Glycol 3350 17 Gm Powder PO QDAY PRN Constipation Senna/Docusate Sodium 2 tab 03/06/22 11:00 03/08/22 23:00 Sennosides/Docusate Sodium 8.6/50 Mg Tab PO Not Given Q12H VERN Sodium Chloride 10 ml 03/03/22 22:00 03/08/22 21:21 Sodium Chloride 0.9% 10 Ml Flush Syringe IV 10 ml BID VERN Administration Sodium Chloride 10 ml 03/03/22 20:28 Sodium Chloride 0.9% 10 Ml Flush Syringe IV PRN PRN LINE FLUSH Sodium Polystyrene Sulfonate 15 gm 03/09/22 10:30 Sodium Polystyrene 15 Gm/60 Ml Oral Liqd PO 03/09/22 14:30 ONCE@1030 [facility]
--- NOTE | 2022-03-09 11:04 | XRay Report ---
CHEST 1 VIEW 03/09/2022 9:49 AM INDICATION / CLINICAL INFORMATION: SOB. COMPARISON: 03/07/2022. FINDINGS: SUPPORT DEVICES: None. HEART / MEDIASTINUM: Stable cardiomegaly. LUNGS / PLEURA: Mild increasing interstitial markings bilaterally without localized infiltrate. No pn eumothorax. ADDITIONAL FINDINGS: No significant additional findings. IMPRESSION: Mild increasing edema. Signer Name: Tho Odonnell MD Signed: 03/09/2022 11:00 AM Workstation Name: [id number]
[2022-03-09] MEDS: FAMOTIDINE 10 MG TAB PO SCH ×2 (12:02→21:20)
[2022-03-09] MEDS: SENNOSIDES/DOCUSATE SODIUM 8.6/50 MG TAB PO SCH ×2 (12:04→22:53)
[2022-03-09] MEDS: oxyCODONE /ACETAMINOPHEN 5-325MG TAB PO PRN (12:06)
--- NOTE | 2022-03-09 14:47 | Progress Note ---
Assessment and Plan - Patient Problems (1) Interstitial edema Current Visit: Yes Status: Acute Plan to address problem: 71-year-old woman with morbid obesity, obstructive sleep apnea, hypertension, presents with shortness of breath and chest x-ray evidence of mild to moderate interstitial edema. Previous invasive cardiac work-up 10 years ago showed no significant coronary artery disease. Prior left ventricular systolic function assessment was well-preserved at 50%. Echocardiogram on this presentation demonstrates well-preserved left ventricular systolic function. Major finding on the echocardiogram is the presence of severe cor pulmonale with dilated right heart chambers, moderate to severe tricuspid regurgitation and severe pulmonary hypertension with pulmonary artery systolic pressures approaching systemic levels. We will defer to pulmonary for management of her chronic lung disease which is a primary pathology and etiology of chronic dyspnea and hypoxemia. Subjective Date of service: 03/09/22 Principal diagnosis: Hypoxic respiratory failure Interval history: Patient has no new cardiac complaints, on clinical research monitor there is a stable sinus rhythm. Objective Vital Signs Temp Pulse Resp BP Pulse Ox 03/09/22 10:00 96 03/09/22 09:39 96 03/09/22 00:16 102 H 28 H 92 03/08/22 20:46 91 03/08/22 20:10 98.3 F 110 H 20 140/86 91 03/08/22 19:46 109 H 03/08/22 15:00 95 H - Physical Examination HEENT: Positive: PERRL Neck: Positive: neck supple Cardiac: Positive: Reg Rate and Rhythm Lungs: Positive: Decreased Breath Sounds Neuro: Positive: Grossly Intact Abdomen: Positive: Soft Skin: Positive: Clear Extremities: Present: edema (Minimal) - Labs and Meds Comprehensive Metabolic Panel 03/08/22 03/09/22 Range/Units 14:36 05:43 Sodium 138 137 (137-145) mmol/L Potassium 4.3 5.3 H D (3.6-5.0) mmol/L Chloride 98.0 99.2 (98-107) mmol/L Carbon Dioxide 25 24 (22-30) mmol/L BUN 70 H 82 H (7-17) mg/dL Creatinine 2.4 H 2.5 H (0.6-1.2) mg/dL Glucose 125 H 149 H (65-100) mg/dL Calcium 9.4 9.2 (8.4-10.2) mg/dL - Imaging and Cardiology EKG: report reviewed (Sinus tachycardia no acute ST-T wave changes)
[2022-03-09] MEDS: FUROSEMIDE 40 MG TAB PO SCH (17:09)
[2022-03-09] MEDS: ERTAPENEM 0.5 GM in SODIUM CHLORIDE 0.9% 50 ML IV SCH (17:12)
--- NOTE | 2022-03-09 18:12 | Progress Note ---
Assessment and Plan Cultures: Urine culture ESBL E. coli A/P: 71-year-old female past medical history chronic CHF now with: #ESBL E. coli UTI: Sensitive to Macrobid #RIN on CKD: Renally dose medications #Acute CHF: Presented with shortness of breath, vascular congestion #Penicillin allergy Recs: -Started ertapenem 500 mg every 24 hours. Complete 5 days antibiotics from start of nitrofurantoin ID will sign off. Please call questions. Thank you for the consult, we will continue to follow. Sumit Trujillo MD [facility] O: [phone] F: [phone] Subjective Date of service: 03/09/22 Principal diagnosis: Hypoxic respiratory failure Interval history: Afebrile, normal white count. Urine culture with E. coli. Imaging personally reviewed: Chest x-ray: Mild increasing edema. Objective - Exam Narrative Exam: Physical Exam: Constitutional: Alert, cooperative. No acute distress Head, Ears, Nose: Normocephalic, atraumatic. External ears, nose normal Eyes: Conjunctivae/corneas clear. No icterus. No ptosis. Neck: Supple, no meningeal signs Oral: dentition fair, no thrush Cardiovascular: S1, S2 normal. Respiratory: Good air entry, clear to auscultation bilaterally GI: Soft, non-tender; bowel sounds normal. No peritoneal signs. Musculoskeletal: No pedal edema, no cyanosis. Skin: No rash or abscess Hem/Lymphatic: No palpable cervical or supraclavicular nodes. No lymphangitis Psych: Mood ok. Affect normal Neurological: Awake, alert, oriented. No gross abnormality - Constitutional Vitals: Vital Signs Temp Pulse Resp BP Pulse Ox 98.3 F 102 H 20 140/86 97 03/08/22 20:10 03/09/22 00:16 03/09/22 10:00 03/08/22 20:10 03/09/22 10:00 Temperature -Last 24 Hours Temperature 98.3 F - Labs CBC & Chem 7: 03/08/22 09:44 03/09/22 05:43 Labs: Abnormal lab results 03/09/22 Range/Units 05:43 Potassium 5.3 H D (3.6-5.0) mmol/L BUN 82 H (7-17) mg/dL Creatinine 2.5 H (0.6-1.2) mg/dL Glucose 149 H (65-100) mg/dL
[2022-03-10] MEDS: HEPARIN 5,000 UNIT/1 ML VIAL SUB-Q SCH ×3 (05:14→22:34)
[2022-03-10] MEDS: methylPREDNISolone Sod Succinate 125 MG/2 ML INJ IV SCH ×5 (05:14→23:15)
[2022-03-10] MEDS: FUROSEMIDE 40 MG TAB PO SCH (05:14)
--- NOTE | 2022-03-10 07:54 | Progress Note ---
Assessment and Plan Assessment and plan: #Severe pulmonary arterial hypertension #Acute on chronic hypoxic respiratory failure- worsening - baseline oxygen requirements: 5 L nasal cannula - supplemental oxygen: HFNC @ 30L/min, 90% FIO2; will attempt to wean as tolerated Pulmonology following; assistance appreciated - Continue protocol: continue pulse oximetry, wean oxygen as tolerated, ordered incentive spirometry and educated patient on how to use it and its importance - Unremarkable LE dopplers. V/Q scan low probability for PE - CTA of the chest: intersitial edema and central pulmonary arterial enlargement suggest of PAH - continue IV steroids; may benefit from R + L heart cath for further evaluation #Acute on chronic diastolic heart failure #cor pulmonale - Continue CHF exacerbation protocol: Telemetry, Strict I/O, monitor urine output every shift, daily weights, afterload reduction, low-sodium diet, and fluid restriction of approximately 1.5 mL/day - continue PO diuretics - ProBNP on admission: ,875 - Cardiology following; appreciate recs - TTE (03/04/2022) revealing EF 50-55% with normal-sized LV, lower limits of normal LV systolic function, borderline concentric LVH, severely dilated RV, severely reduced RV systolic function, mildly dilated LA, severely dilated RA, RVSP >95 mmHg, and severe pulmonary hypertension. #ESBL UTI/cystitis without hematuria Urinalysis revealing large leukocyte esterase, WBC 11, 1+ bacteria, few budding yeast. - Macrobid discontinued due to worsening renal function, ertapenem x3 doses started per ID recs Infectious disease following, assistance appreciated Continue precautions #Atypical chest painruled out Negative troponin x2 Likely secondary to volume overload in the setting of acute heart failure. #RIN on CKD stage III SCr 2.3 today - diuretics changed to PO due to worsening SCr, will monitor Renally dose meds and avoid nephrotoxic drugs Nephrology following; appreciate recs #Mild protein caloric malnutrition Albumin 3.4 Continue dietary supplementation #Morbid obesity #Weight loss counseling #Exercise counseling - BMI 53.1 - Counseled patient on the importance of weight loss, incorporating exercise, and dietary changes (lean meats, fresh fruits and vegetables, and water intake). Patient expresses understanding. - Time: +15 min #Advanced care planning -Disease education conducted, care plan discussed, diagnoses discussed, prognosis discussed, and patient acknowledges understanding with care plan -Time: +30 min Critical Care Billing: The high probability of a clinically significant, sudden or life threatening deterioration of the [respiratory] system(s) required my full and direct attention, intervention and personal management. The aggregate critical care time was [60] minutes. This time is in addition to time spent performing rep orted procedures but includes the following: [x] Data Review and interpretation [x] Patient assessment and monitoring of vital signs [x] Documentation [x] Medication orders and management History Interval history: Patient continues to be on high flow nasal cannula. Settings are currently 20 L/min and and 90% FiO2. She denies chest pain or shortness of breath. Complains of soreness on her left buttock and vaginal area. Hospitalist Physical - Physical exam Narrative exam: GENERAL: Obese woman. Sitting on the bedside commode in no acute distress. HEENT: High flow nasal cannula. CHEST/LUNGS: Prolonged expiratory phase, otherwise CTAB. HEART/CARDIOVASCULAR: RRR. No murmur, rubs or gallops appreciated. ABDOMEN: +BS. NT/ND. NEURO: No focal motor deficit. Follows all commands. MUSCULOSKELETAL: No joint effusion EXTREMITIES: BLE chronic venous stasis changes. No clubbing or edema. PSYCH: Cooperative. - Constitutional Vitals: Temp Pulse Resp BP Pulse Ox 98.4 F 79 18 132/75 94 03/10/22 07:41 03/10/22 07:41 03/10/22 07:41 03/10/22 07:41 03/10/22 07:41 General appearance: Present: mild distress, well-nourished, obese HEART Score - HEART Score Age: > 65 Risk factors: 1-2 risk factors Troponin: Troponin T < 0.010 ng/mL (0.00-0.029) 03/03/22 13:34 Troponin: < normal limit - Critical Actions Critical Actions: 4-6 pts:12-16.6% risk of adverse cardiac event. Should be admitted Results - Labs CBC & Chem 7: 03/08/22 09:44 03/10/22 07:16 Labs: Laboratory Last Values WBC 7.6 K/mm3 (4.5-11.0) 03/08/22 09:44 RBC 4.57 M/mm3 (3.65-5.03) 03/08/22 09:44 Hgb 13.3 gm/dl (10.1-14.3) 03/08/22 09:44 Hct 41.7 % (30.3-42.9) 03/08/22 09:44 MCV 91 fl (79-97) 03/08/22 09:44 MCH 29 pg (28-32) 03/08/22 09:44 MCHC 32 % (30-34) 03/08/22 09:44 RDW 15.9 % (13.2-15.2) H 03/08/22 09:44 Plt Count 207 K/mm3 (140-440) 03/08/22 09:44 Lymph % (Auto) 12.2 % (13.4-35.0) L 03/08/22 09:44 [place] % (Auto) 4.6 % (0.0-7.3) 03/08/22 09:44 Eos % (Auto) 3.0 % (0.0-4.3) 03/08/22 09:44 Baso % (Auto) 0.7 % (0.0-1.8) 03/08/22 09:44 Lymph # (Auto) 0.9 K/mm3 (1.2-5.4) L 03/08/22 09:44 [place] # (Auto) 0.4 K/mm3 (0.0-0.8) 03/08/22 09:44 Eos # (Auto) 0.2 K/mm3 (0.0-0.4) 03/08/22 09:44 Baso # (Auto) 0.1 K/mm3 (0.0-0.1) 03/08/22 09:44 Seg Neutrophils % 79.5 % (40.0-70.0) H 03/08/22 09:44 Seg Neutrophils # 6.0 K/mm3 (1.8-7.7) 03/08/22 09:44 Sodium 137 mmol/L (137-145) 03/09/22 05:43 Potassium 5.3 mmol/L (3.6-5.0) H D 03/09/22 05:43 Chloride 99.2 mmol/L (98-107) 03/09/22 05:43 Carbon Dioxide 24 mmol/L (22-30) 03/09/22 05:43 Anion Gap 19 mmol/L 03/09/22 05:43 BUN 82 mg/dL (7-17) H 03/09/22 05:43 Creatinine 2.5 mg/dL (0.6-1.2) H 03/09/22 05:43 Estimated GFR 23 ml/min 03/09/22 05:43 BUN/Creatinine Ratio 33 % 03/09/22 05:43 Glucose 149 mg/dL (65-100) H 03/09/22 05:43 Calcium 9.2 mg/dL (8.4-10.2) 03/09/22 05:43 Total Bilirubin 0.60 mg/dL (0.1-1.2) 03/04/22 02:51 AST 12 units/L (5-40) 03/04/22 02:51 ALT 6 units/L (7-56) L 03/04/22 02:51 Alkaline Phosphatase 91 units/L (35-129) 03/04/22 02:51 Troponin T < 0.010 ng/mL (0.00-0.029) 03/03/22 13:34 NT-Pro-B Natriuret Pep 21583 pg/mL (0-900) H 03/03/22 13:34 Total Protein 8.4 g/dL (6.3-8.2) H 03/04/22 02:51 Albumin 3.4 g/dL (3.9-5) L 03/04/22 02:51 Albumin/Globulin Ratio 0.7 % 03/04/22 02:51 Urine Color Yellow (Yellow) 03/04/22 17:35 Urine Turbidity Slightly-cloudy (Clear) 03/04/22 17:35 Urine pH 6.0 (5.0-7.0) 03/04/22 17:35 Ur Specific [place] 1.008 (1.003-1.030) 03/04/22 17:35 Urine Protein <15 mg/dl mg/dL (Negative) 03/04/22 17:35 Urine Glucose (UA) Neg mg/dL (Negative) 03/04/22 17:35 Urine Ketones Neg mg/dL (Negative) 03/04/22 17:35 Urine Blood Mod (Negative) 03/04/22 17:35 Urine Nitrite Neg (Negative) 03/04/22 17:35 Urine Bilirubin Neg (Negative) 03/04/22 17:35 Urine Urobilinogen < 2.0 mg/dL (<2.0) 03/04/22 17:35 Ur Leukocyte Esterase Lg (Negative) 03/04/22 17:35 Urine WBC (Auto) 11.0 /HPF (0.0-6.0) H 03/04/22 17:35 Urine RBC (Auto) 2.0 /HPF (0.0-6.0) 03/04/22 17:35 U Epithel Cells (Auto) 1.0 /HPF (0-13.0) 03/04/22 17:35 Urine Bacteria (Auto) 1+ /HPF (Negative) 03/04/22 17:35 Urine Mucus Few /HPF 03/04/22 17:35 Urine Yeast (Budding) Few /HPF 03/04/22 17:35 Urine Creatinine 41.2 mg/dL (0.1-20.0) H 03/04/22 17:35 Urine Sodium 126 mmol/L 03/04/22 17:35 Urine Total Protein 16 mg/dL (5-11.8) H 03/04/22 17:35 Coronavirus (PCR) Negative (Negative) 03/04/22 09:57 Gale/IV: Voiding Method Bedside Commode Active Medications - Current Medications Current Medications: Generic Name Dose Route Start Last Admin Trade Name Freq PRN Reason Stop Dose Admin Acetaminophen 650 mg 03/03/22 20:28 03/06/22 04:29 Acetaminophen 325 Mg Tab PO 650 mg Q4H PRN Administration Pain MILD(1-3)/Fever >100.5/HOFFMAN Famotidine 10 mg 03/08/22 10:00 03/09/22 21:20 Famotidine 10 Mg Tab PO 10 mg BID VERN Administration Furosemide 40 mg 03/09/22 18:00 03/10/22 05:14 Furosemide 40 Mg Tab PO 40 mg 0600,1800 VERN Administration Heparin Sodium (Porcine) 5,000 unit 03/04/22 14:00 03/10/22 05:14 Heparin 5,000 Unit/1 Ml Vial SUB-Q 5,000 unit Q8HR VERN Administration Ertapenem 0.5 gm/ Sodium 50 mls @ 100 mls/hr 03/08/22 14:00 03/09/22 17:12 Chloride IV 03/10/22 14:29 100 mls/hr Q24H VERN Administration Methylprednisolone Sodium Succinate 60 mg 03/08/22 12:00 03/10/22 05:14 Methylprednisolone Sod Succinate 125 Mg/2 Ml Inj IV 60 mg Q6HR VERN Administration Metoclopramide HCl 10 mg 03/03/22 20:28 03/06/22 04:29 Metoclopramide 10 Mg/2 Ml Inj IV 10 mg Q6H PRN Administration Nausea And Vomiting Morphine Sulfate 2 mg 03/03/22 20:28 Morphine 2 Mg/1 Ml Inj IV Q4H PRN Pain, Moderate (4-6) Ondansetron HCl 4 mg 03/03/22 20:28 Ondansetron 4 Mg/2 Ml Inj IV Q8H PRN Nausea And Vomiting Oxycodone/Acetaminophen 1 tab 03/03/22 20:28 03/09/22 12:06 Oxycodone /Acetaminophen 5-325mg Tab PO 1 tab Q6H PRN Administration Pain, Moderate (4-6) Polyethylene Glycol 17 gm 03/06/22 11:00 Polyethylene Glycol 3350 17 Gm Powder PO QDAY PRN Constipation Senna/Docusate Sodium 2 tab 03/06/22 11:00 03/09/22 22:53 Sennosides/Docusate Sodium 8.6/50 Mg Tab PO Not Given Q12H VERN Sodium Chloride 10 ml 03/03/22 22:00 03/09/22 21:16 Sodium Chloride 0.9% 10 Ml Flush Syringe IV 10 ml BID VERN Administration Sodium Chloride 10 ml 03/03/22 20:28 Sodium Chloride 0.9% 10 Ml Flush Syringe IV PRN PRN LINE FLUSH
[2022-03-10 08:07] LABS: Calcium 9.2 mg/dL (8.4-10.2)
--- NOTE | 2022-03-10 08:40 | Progress Note ---
Assessment and Plan - Patient Problems (1) Acute kidney injury Current Visit: Yes Status: Acute Plan to address problem: Prerenal azotemia secondary to acute cardiorenal syndrome/diuresis. Kidney indices are worsening. Steroids also contributing to the severe azotemia. If renal indicis keep worsening, will be needing renal replacement therapy in 24 to 48 hours. Discussed with the patient and at her request I called her sister on the phone and discussed the above with her (2) Acute exacerbation of congestive heart failure Current Visit: Yes Status: Acute Qualifiers: Heart failure type: combined systolic and diastolic Qualified Code(s): I50.43 - Acute on chronic combined systolic (congestive) and diastolic (congest kofi) heart failure Plan to address problem: Cardiology input appreciated. Preserved ejection fraction with severe pulmonary hypertension. Repeat chest x-ray actually shows worsening bilateral infiltrates concerning for pulmonary edema but it a very poor film due to patient's body habitus. We will get a CT scan of the chest without contrast (3) Acute respiratory failure with hypoxia Current Visit: Yes Status: Acute Plan to address problem: Multifactorial. Continue respiratory support/management by back hoe operator (4) Chronic kidney disease, stage 3b Current Visit: Yes Status: Acute Plan to address problem: Kidney function is a bit worse. Will be cautious with diuresis. Follow-up electrolytes and renal function (5) Hypertensive chronic kidney disease with stage 1 through stage 4 chronic kidney disease, or unspecified chronic kidney disease Current Visit: Yes Status: Acute Plan to address problem: Follow-up blood pressure on current medications. (6) Urinary tract infection Current Visit: Yes Status: Acute Plan to address problem: ESBL urinary tract infection on ertapenem per Infectious disease Subjective Date of service: 03/10/22 Principal diagnosis: Hypoxic respiratory failure Interval history: Patient seen lying in bed. She has no complaints. Still short of breath both on exertion. She is on BiPAP. No chest pain. No nausea vomiting Objective - Exam Narrative Exam: Morbidly elderly -Martiniquais female lying in bed on BiPAP HEENT: NCAT, pink conjunctiva Neck: Supple, no venous distention CVS: S1S2 RRR with no murmur, rub or gallop Chest: Clear to auscultation but breath sounds diminished Abdomen: Obese, soft, nontender, no organomegaly, bowel sounds are present Extremities: No edema Genitourinary deferred Skin warm and dry with hyperpigmentation in both legs and feet Neuro: Awake, alert no focal deficits - Vital Signs Vital signs: Vital Signs - 12hr 03/09/22 03/10/22 03/10/22 22:00 00:00 01:59 Temperature 98.3 F Pulse Rate 93 H 87 Respiratory 20 20 18 Rate Blood Pressure Blood Pressure 145/76 [Left] O2 Sat by Pulse 97 94 92 Oximetry 03/10/22 07:41 Temperature 98.4 F Pulse Rate 79 Respiratory 18 Rate Blood Pressure 132/75 Blood Pressure [Left] O2 Sat by Pulse 94 Oximetry - Lab 03/08/22 09:44 03/10/22 07:16 Most recent lab results Calcium 9.2 mg/dL (8.4-10.2) 03/10/22 07:16 Urine Creatinine 41.2 mg/dL (0.1-20.0) H 03/04/22 17:35 Urine Sodium 126 mmol/L 03/04/22 17:35 Urine Total Protein 16 mg/dL (5-11.8) H 03/04/22 17:35 Medications & Allergies - Medications Allergies/Adverse Reactions: Allergies iodine Allergy (Verified 03/03/22 12:49) Anaphylaxis Penicillins Allergy (Verified 03/03/22 12:49) Anaphylaxis shellfish derived Allergy (Verified 03/03/22 12:49) Anaphylaxis Home Medications: Home Medications Medication Instructions Recorded Confirmed Last Taken Type Acetaminophen [Non-Aspirin Extra 500 mg PO Q8HR PRN 03/04/22 03/04/22 03/01/22 History Strength] Aspirin EC 325 mg PO 4XW 03/04/22 03/04/22 03/02/22 History Hydrocodone-Acetamin 2.5-325 5 - 325 mg PO Q6HR PRN 03/04/22 03/04/22 03/02/22 History Mucus Relief ER 600 mg PO BID 03/04/22 03/05/22 03/02/22 History Omeprazole 40 mg PO DAILY 03/04/22 03/05/22 03/02/22 History Phenazopyridine 200 mg PO TID 03/04/22 03/04/22 03/03/22 History Senna Plus Tablet 8.6 - 50 mg PO BID MDD CONSTIPATION 03/04/22 03/05/22 03/02/22 History Diclofenac Sodium ER 75 mg PO Q8HR 03/05/22 03/05/22 03/02/22 History Nifedipine ER 60 mg PO DAILY 03/05/22 03/05/22 03/02/22 History Vitamin D3 25 mg PO DAILY 03/05/22 03/05/22 03/02/22 History Active Medications: Generic Name Dose Route Start Last Admin Trade Name Freq PRN Reason Stop Dose Admin Acetaminophen 650 mg 03/03/22 20:28 03/06/22 04:29 Acetaminophen 325 Mg Tab PO 650 mg Q4H PRN Administration Pain MILD(1-3)/Fever >100.5/HOFFMAN Famotidine 10 mg 03/08/22 10:00 03/09/22 21:20 Famotidine 10 Mg Tab PO 10 mg BID VERN Administration Furosemide 40 mg 03/10/22 18:00 Furosemide 40 Mg/4 Ml Inj IV 0600,1800 VERN Heparin Sodium (Porcine) 5,000 unit 03/04/22 14:00 03/10/22 05:14 Heparin 5,000 Unit/1 Ml Vial SUB-Q 5,000 unit Q8HR VERN Administration Ertapenem 0.5 gm/ Sodium 50 mls @ 100 mls/hr 03/08/22 14:00 03/09/22 17:12 Chloride IV 03/10/22 14:29 100 mls/hr Q24H VERN Administration Methylprednisolone Sodium Succinate 60 mg 03/08/22 12:00 03/10/22 05:14 Methylprednisolone Sod Succinate 125 Mg/2 Ml Inj IV 60 mg Q6HR VERN Administration Metoclopramide HCl 10 mg 03/03/22 20:28 03/06/22 04:29 Metoclopramide 10 Mg/2 Ml Inj IV 10 mg Q6H PRN Administration Nausea And Vomiting Morphine Sulfate 2 mg 03/03/22 20:28 Morphine 2 Mg/1 Ml Inj IV Q4H PRN Pain, Moderate (4-6) Ondansetron HCl 4 mg 03/03/22 20:28 Ondansetron 4 Mg/2 Ml Inj IV Q8H PRN Nausea And Vomiting Oxycodone/Acetaminophen 1 tab 03/03/22 20:28 03/09/22 12:06 Oxycodone /Acetaminophen 5-325mg Tab PO 1 tab Q6H PRN Administration Pain, Moderate (4-6) Polyethylene Glycol 17 gm 03/06/22 11:00 Polyethylene Glycol 3350 17 Gm Powder PO QDAY PRN Constipation Senna/Docusate Sodium 2 tab 03/06/22 11:00 03/09/22 22:53 Sennosides/Docusate Sodium 8.6/50 Mg Tab PO Not Given Q12H VERN Sodium Chloride 10 ml 03/03/22 22:00 03/09/22 21:16 Sodium Chloride 0.9% 10 Ml Flush Syringe IV 10 ml BID VERN Administration Sodium Chloride 10 ml 03/03/22 20:28 Sodium Chloride 0.9% 10 Ml Flush Syringe IV PRN PRN LINE FLUSH
--- NOTE | 2022-03-10 09:47 | Cat Scan Report ---
CT chest wo con HISTORY: SOB, Bilateral infiltartes. Pulmonary edema COMPARISON: 03/09/2022, x-ray TECHNIQUE: Chest CT exam. All CT scans at this location are performed using CT dose reduction for ALA RA by means of automated exposure control. FINDINGS: CT CHEST: Lungs: Pulmonary vascular congestion. Diffuse thin interlobular septal thickening. Parenchymal bands seen within the right lower lung zone consistent with subsegmental atelectasis. Mosaic attenuation samira ng parenchyma could be related to small vessel or small airway disease. A component of alveolar edema could also be present. Trachea and Bronchi: No significant abnormality. Mediastinum/Lymph nodes: No lymphadenopathy. Heart: Mild cardiomegaly. Moderately quantity of multivessel coronary atherosclerotic calcifications. Vasculature: Central pulmonary artery enlargement Mild aortic atherosclerosis. No aneurysm. Osseous Structures: No aggressive appearing osseous lesions. Additional Findings: Incompletely visualized left peripelvic cyst. There is a 2 cm right mid pole hyp erattenuating lesion with Hounsfield units greater than 70 consistent with hemorrhagic cyst. IMPRESSION: 1. Findings consistent with interstitial edema. 2. Central pulmonary artery enlargement suggests pulmonary arterial hypertension. Signer Name: Kg Silva MD Signed: 03/10/2022 9:42 AM Workstation Name: [employer]
[2022-03-10] MEDS: FAMOTIDINE 10 MG TAB PO SCH ×2 (10:02→22:34)
--- NOTE | 2022-03-10 12:25 | Progress Note ---
Assessment and Plan - Patient Problems (1) Interstitial edema Current Visit: Yes Status: Acute Plan to address problem: 71-year-old woman with morbid obesity, obstructive sleep apnea, hypertension, presents with shortness of breath and chest x-ray evidence of mild to moderate interstitial edema. Previous invasive cardiac work-up 10 years ago showed no significant coronary artery disease. Prior left ventricular systolic function assessment was well-preserved at 50%. Echocardiogram on this presentation demonstrates well-preserved left ventricular systolic function. Major finding on the echocardiogram is the presence of severe cor pulmonale with dilated right heart chambers, moderate to severe tricuspid regurgitation and severe pulmonary hypertension with pulmonary artery systolic pressures approaching systemic levels. We will defer to pulmonary for management of her chronic lung disease which is a primary pathology and etiology of chronic dyspnea and hypoxemia. Subjective Date of service: 03/10/22 Principal diagnosis: Hypoxic respiratory failure Interval history: Patient has no new cardiac complaints, on environmental monitoring technician there is a stable sinus rhythm. Objective Vital Signs Temp Pulse Resp BP BP Pulse Ox 03/10/22 08:00 95 03/10/22 07:41 98.4 F 79 18 132/75 94 03/10/22 01:59 98.3 F 87 18 145/76 92 03/10/22 00:00 93 H 20 94 03/09/22 22:00 20 97 03/09/22 20:00 96 03/09/22 19:27 98.6 F 92 H 18 155/91 96 03/09/22 15:54 97.9 F 94 H 18 144/89 95 - Physical Examination General: No Apparent Distress HEENT: Positive: PERRL Neck: Positive: neck supple Cardiac: Positive: Reg Rate and Rhythm Lungs: Positive: Decreased Breath Sounds Neuro: Positive: Grossly Intact Abdomen: Positive: Soft Skin: Positive: Clear Extremities: Present: edema (Minimal) - Labs and Meds Comprehensive Metabolic Panel 03/10/22 Range/Units 07:16 Sodium 139 (137-145) mmol/L Potassium 4.4 (3.6-5.0) mmol/L Chloride 99.7 (98-107) mmol/L Carbon Dioxide 26 (22-30) mmol/L BUN 95 H (7-17) mg/dL Creatinine 2.3 H (0.6-1.2) mg/dL Glucose 141 H (65-100) mg/dL Calcium 9.2 (8.4-10.2) mg/dL - Imaging and Cardiology EKG: report reviewed (Sinus tachycardia no acute ST-T wave changes)
[2022-03-10] MEDS: SENNOSIDES/DOCUSATE SODIUM 8.6/50 MG TAB PO SCH ×2 (12:46→22:37)
[2022-03-10] MEDS: ERTAPENEM 0.5 GM in SODIUM CHLORIDE 0.9% 50 ML IV SCH (13:50)
[2022-03-10] MEDS: FUROSEMIDE 40 MG/4 ML INJ IV SCH (18:29)
--- NOTE | 2022-03-11 00:20 | Progress Note ---
Assessment and Plan Imp: 1. A/C respiratory failure, hypoxia 2. Morbid obesity 3. A/C diastolic CHF 4. Pulm HTN 5. ELISEO 6. R/o OHS 7. UTI 8. RIN on CKD Rec: 1. ABG on O2 to eval. for chronic CO2 retention which would likely be indicative of OHS 2. Prior office Spirometry x 2 was negative for COPD and there is no parenchymal lung process on CT Chest that would explain the severe pulm HTN; V/Q is negative for CTEPH; suspect some degree of diastolic dysfunction so cont. Lasix IV, but there may very well be a WHO group 1 component to her pulmonary HTN; optimally she should have a RHC but currently is a suboptimal candidate for the same; will give her a trial of Sildenafil 20mg TID 3. Wean O2 to keep sats 88-94% 4. Weight loss 5. Repeat outpatient PFTs 6. Cont. BIPAP QHS 7. Complex decision-making Plan of care reviewed w/ patient she understands/agrees Subjective Date of service: 03/10/22 Principal diagnosis: Hypoxic respiratory failure Interval history: No events. On HFNC 90% and 20LPM. SOB is a little better. No new complaints. Active Medications Acetaminophen (Acetaminophen 325 Mg Tab) 650 mg PO Q4H PRN PRN Reason: Pain MILD(1-3)/Fever >100.5/HOFFMAN Last Admin: 03/06/22 04:29 Dose: 650 mg Famotidine (Famotidine 10 Mg Tab) 10 mg PO BID [facility] Last Admin: 03/10/22 22:34 Dose: 10 mg Furosemide (Furosemide 40 Mg/4 Ml Inj) 40 mg IV 0600,1800 [facility] Last Admin: 03/10/22 18:29 Dose: 40 mg Heparin Sodium (Porcine) (Heparin 5,000 Unit/1 Ml Vial) 5,000 unit SUB-Q Q8HR [facility] Last Admin: 03/10/22 22:34 Dose: 5,000 unit Methylprednisolone Sodium Succinate (Methylprednisolone Sod Succinate 125 Mg/2 Ml Inj) 60 mg IV Q6HR [facility] Last Admin: 03/10/22 23:15 Dose: 60 mg Metoclopramide HCl (Metoclopramide 10 Mg/2 Ml Inj) 10 mg IV Q6H PRN PRN Reason: Nausea And Vomiting Last Admin: 03/06/22 04:29 Dose: 10 mg Morphine Sulfate (Morphine 2 Mg/1 Ml Inj) 2 mg IV Q4H PRN PRN Reason: Pain, Moderate (4-6) Ondansetron HCl (Ondansetron 4 Mg/2 Ml Inj) 4 mg IV Q8H PRN PRN Reason: Nausea And Vomiting Oxycodone/Acetaminophen (Oxycodone /Acetaminophen 5-325mg Tab) 1 tab PO Q6H PRN PRN Reason: Pain, Moderate (4-6) Last Admin: 03/09/22 12:06 Dose: 1 tab Polyethylene Glycol (Polyethylene Glycol 3350 17 Gm Powder) 17 gm PO QDAY PRN PRN Reason: Constipation Senna/Docusate Sodium (Sennosides/Docusate Sodium 8.6/50 Mg Tab) 2 tab PO Q12H [facility] Last Admin: 03/10/22 22:37 Dose: Not Given Sodium Chloride (Sodium Chloride 0.9% 10 Ml Flush Syringe) 10 ml IV BID [facility] Last Admin: 03/10/22 22:35 Dose: 10 ml Sodium Chloride (Sodium Chloride 0.9% 10 Ml Flush Syringe) 10 ml IV PRN PRN PRN Reason: LINE FLUSH Objective Vital Signs - 12hr 03/10/22 03/10/22 03/10/22 14:00 16:00 16:39 Temperature 98.0 F Pulse Rate 85 83 Respiratory 18 Rate Blood Pressure 123/67 Blood Pressure [Left] O2 Sat by Pulse 94 95 Oximetry 03/10/22 03/10/22 03/10/22 16:40 20:00 20:58 Temperature 97.9 F 98.2 F Pulse Rate 88 88 Respiratory 18 20 Rate Blood Pressure Blood Pressure 115/50 [Left] O2 Sat by Pulse 95 94 96 Oximetry Constitutional: no acute distress, alert, other (obese) Eyes: non-icteric ENT: oropharynx moist Neck: supple, other (large in circumference) Effort: mildly labored Ascultation: Bilateral: diminished breath sounds Percussion: Bilateral: not dull Cardiovascular: regular rate and rhythm (no mrg) Gastrointestinal: normoactive bowel sounds, soft, non-tender, non-distended Integumentary: normal Extremities: no cyanosis, no edema, pink and warm Neurologic: normal mental status, non-focal exam, pupils equal and round Psychiatric: mood appropriate, affect normal CBC and BMP: 03/08/22 09:44 07/22/22 06:44 Abnormal lab findings: Abnormal Labs 03/03/22 03/03/22 03/03/22 13:34 13:34 13:34 RDW 16.1 H Lymph % (Auto) 9.7 L Lymph # (Auto) 0.8 L Seg Neutrophils % 84.6 H Potassium BUN 47 H Creatinine 1.7 H Glucose 101 H ALT NT-Pro-B Natriuret Pep 99925 H Total Protein 9.1 H Albumin 3.5 L Urine WBC (Auto) Urine Creatinine Urine Total Protein 03/04/22 03/04/22 03/04/22 02:51 03:05 17:35 RDW 16.0 H Lymph % (Auto) 8.9 L Lymph # (Auto) 0.8 L Seg Neutrophils % 84.1 H Potassium BUN 46 H Creatinine 1.8 H Glucose 119 H ALT 6 L NT-Pro-B Natriuret Pep Total Protein 8.4 H Albumin 3.4 L Urine WBC (Auto) 11.0 H Urine Creatinine Urine Total Protein 03/04/22 03/05/22 03/05/22 17:35 12:08 15:18 RDW Lymph % (Auto) Lymph # (Auto) Seg Neutrophils % Potassium 6.4 H* D BUN 55 H 55 H Creatinine 2.0 H 2.0 H Glucose 120 H 116 H ALT NT-Pro-B Natriuret Pep Total Protein Albumin Urine WBC (Auto) Urine Creatinine 41.2 H Urine Total Protein 16 H 03/06/22 03/08/22 03/08/22 05:25 09:44 09:44 RDW 15.9 H Lymph % (Auto) 12.2 L Lymph # (Auto) 0.9 L Seg Neutrophils % 79.5 H Potassium BUN 58 H 69 H Creatinine 2.1 H 2.3 H Glucose 103 H ALT NT-Pro-B Natriuret Pep Total Protein Albumin Urine WBC (Auto) Urine Creatinine Urine Total Protein 03/08/22 03/09/22 03/10/22 14:36 05:43 07:16 RDW Lymph % (Auto) Lymph # (Auto) Seg Neutrophils % Potassium 5.3 H D BUN 70 H 82 H 95 H Creatinine 2.4 H 2.5 H 2.3 H Glucose 125 H 149 H 141 H ALT NT-Pro-B Natriuret Pep Total Protein Albumin Urine WBC (Auto) Urine Creatinine Urine Total Protein Chest x-ray: report reviewed, image reviewed CT scan - chest: report reviewed, image reviewed
[2022-03-11] MEDS: FUROSEMIDE 40 MG/4 ML INJ IV SCH ×2 (05:33→17:06)
[2022-03-11] MEDS: methylPREDNISolone Sod Succinate 125 MG/2 ML INJ IV SCH ×3 (05:33→17:07)
[2022-03-11] MEDS: HEPARIN 5,000 UNIT/1 ML VIAL SUB-Q SCH ×3 (05:33→22:07)
[2022-03-11 07:13] LABS: Calcium 8.9 mg/dL (8.4-10.2)
--- NOTE | 2022-03-11 08:20 | Progress Note ---
Assessment and Plan - Patient Problems (1) Acute kidney injury Current Visit: Yes Status: Acute Plan to address problem: Prerenal azotemia secondary to acute cardiorenal syndrome/diuresis. Kidney indices are a bit worse. Steroids also contributing to the severe azotemia. Follow-up electrolytes and renal function (2) Acute exacerbation of congestive heart failure Current Visit: Yes Status: Acute Qualifiers: Heart failure type: combined systolic and diastolic Qualified Code(s): I50.43 - Acute on chronic combined systolic (congestive) and diastolic (congestive) heart failure Plan to address problem: Cardiology input appreciated. Preserved ejection fraction with severe pulmonary hypertension. CT chest showed cardiomegaly with interstitial edema. Continue IV diuretics. (3) Acute respiratory failure with hypoxia Current Visit: Yes Status: Acute Plan to address problem: Multifactorial. Continue respiratory support/management by technical instructor course developer (4) Chronic kidney disease, stage 3b Current Visit: Yes Status: Acute Plan to address problem: Kidney function is a bit worse. Will be cautious with diuresis. Follow-up electrolytes and renal function (5) Hypertensive chronic kidney disease with stage 1 through stage 4 chronic kidney disease, or unspecified chronic kidney disease Current Visit: Yes Status: Acute Plan to address problem: Follow-up blood pressure on current medications. (6) Urinary tract infection Current Visit: Yes Status: Acute Plan to address problem: ESBL urinary tract infection on ertapenem per Infectious disease Subjective Date of service: 03/11/22 Principal diagnosis: Hypoxic respiratory failure Interval history: Patient seen lying in bed. She complains of being sore. Still short of breath both on mild exertion. She is on BiPAP. No chest pain. No nausea vomiting Objective - Exam Narrative Exam: Morbidly elderly -H[place] female lying in bed on BiPAP HEENT: NCAT, pink conjunctiva Neck: Supple, no venous distention CVS: S1S2 RRR with no murmur, rub or gallop Chest: Clear to auscultation but breath sounds diminished Abdomen: Obese, soft, nontender, no organomegaly, bowel sounds are present Extremities: No edema Genitourinary deferred Skin warm and dry with hyperpigmentation in both legs and feet Neuro: Awake, alert no focal deficits - Vital Signs Vital signs: Vital Signs - 12hr 03/10/22 03/10/22 03/11/22 20:58 22:00 00:00 Temperature 98.2 F Pulse Rate 88 82 Respiratory 20 22 Rate Blood Pressure 123/67 Blood Pressure 115/50 [Left] O2 Sat by Pulse 96 96 97 Oximetry 03/11/22 03/11/22 03/11/22 00:56 02:00 04:10 Temperature 97.3 F L Pulse Rate 85 73 Respiratory 18 20 Rate Blood Pressure 123/67 Blood Pressure 126/60 [Left] O2 Sat by Pulse 100 96 96 Oximetry 03/11/22 03/11/22 03/11/22 05:32 07:22 07:40 Temperature 97.6 F 97.5 F L 97.5 F L Pulse Rate 73 79 63 Respiratory 18 18 18 Rate Blood Pressure 141/62 Blood Pressure 120/62 129/69 [Left] O2 Sat by Pulse 96 94 96 Oximetry - Lab 03/08/22 09:44 03/11/22 06:44 Most recent lab results Calcium 8.9 mg/dL (8.4-10.2) 03/11/22 06:44 Urine Creatinine 41.2 mg/dL (0.1-20.0) H 03/04/22 17:35 Urine Sodium 126 mmol/L 03/04/22 17:35 Urine Total Protein 16 mg/dL (5-11.8) H 03/04/22 17:35 Medications & Allergies - Medications Allergies/Adverse Reactions: Allergies iodine Allergy (Verified 03/03/22 12:49) Anaphylaxis Penicillins Allergy (Verified 03/03/22 12:49) Anaphylaxis shellfish derived Allergy (Verified 03/03/22 12:49) Anaphylaxis Home Medications: Home Medications Medication Instructions Recorded Confirmed Last Taken Type Acetaminophen [Non-Aspirin Extra 500 mg PO Q8HR PRN 03/04/22 03/04/22 03/01/22 History Strength] Aspirin EC 325 mg PO 4XW 03/04/22 03/04/22 03/02/22 History Hydrocodone-Acetamin 2.5-325 5 - 325 mg PO Q6HR PRN 03/04/22 03/04/22 03/02/22 History Mucus Relief ER 600 mg PO BID 03/04/22 03/05/22 03/02/22 History Omeprazole 40 mg PO DAILY 03/04/22 03/05/22 03/02/22 History Phenazopyridine 200 mg PO TID 03/04/22 03/04/22 03/03/22 History Senna Plus Tablet 8.6 - 50 mg PO BID MDD CONSTIPATION 03/04/22 03/05/22 03/02/22 History Diclofenac Sodium ER 75 mg PO Q8HR 03/05/22 03/05/22 03/02/22 History Nifedipine ER 60 mg PO DAILY 03/05/22 03/05/22 03/02/22 History Vitamin D3 25 mg PO DAILY 03/05/22 03/05/22 03/02/22 History Active Medications: Generic Name Dose Route Start Last Admin Trade Name Freq PRN Reason Stop Dose Admin Acetaminophen 650 mg 03/03/22 20:28 03/06/22 04:29 Acetaminophen 325 Mg Tab PO 650 mg Q4H PRN Administration Pain MILD(1-3)/Fever >100.5/HOFFMAN Famotidine 10 mg 03/08/22 10:00 03/10/22 22:34 Famotidine 10 Mg Tab PO 10 mg BID [facility] Administration Furosemide 40 mg 03/10/22 18:00 03/11/22 05:33 Furosemide 40 Mg/4 Ml Inj IV 40 mg 0600,1800 [facility] Administration Heparin Sodium (Porcine) 5,000 unit 03/04/22 14:00 03/11/22 05:33 Heparin 5,000 Unit/1 Ml Vial SUB-Q 5,000 unit Q8HR [facility] Administration Methylprednisolone Sodium Succinate 60 mg 03/08/22 12:00 03/11/22 05:33 Methylprednisolone Sod Succinate 125 Mg/2 Ml Inj IV 60 mg Q6HR [facility] Administration Metoclopramide HCl 10 mg 03/03/22 20:28 03/06/22 04:29 Metoclopramide 10 Mg/2 Ml Inj IV 10 mg Q6H PRN Administration Nausea And Vomiting Morphine Sulfate 2 mg 03/03/22 20:28 Morphine 2 Mg/1 Ml Inj IV Q4H PRN Pain, Moderate (4-6) Ondansetron HCl 4 mg 03/03/22 20:28 Ondansetron 4 Mg/2 Ml Inj IV Q8H PRN Nausea And Vomiting Oxycodone/Acetaminophen 1 tab 03/03/22 20:28 03/09/22 12:06 Oxycodone /Acetaminophen 5-325mg Tab PO 1 tab Q6H PRN Administration Pain, Moderate (4-6) Polyethylene Glycol 17 gm 03/06/22 11:00 Polyethylene Glycol 3350 17 Gm Powder PO QDAY PRN Constipation Senna/Docusate Sodium 2 tab 03/06/22 11:00 03/10/22 22:37 Sennosides/Docusate Sodium 8.6/50 Mg Tab PO Not Given Q12H [facility] Sodium Chloride 10 ml 03/03/22 22:00 03/10/22 22:35 Sodium Chloride 0.9% 10 Ml Flush Syringe IV 10 ml BID [facility] Administration Sodium Chloride 10 ml 03/03/22 20:28 Sodium Chloride 0.9% 10 Ml Flush Syringe IV PRN PRN LINE FLUSH
--- NOTE | 2022-03-11 08:35 | Progress Note ---
Assessment and Plan Assessment and plan: #Severe pulmonary arterial hypertension #Acute on chronic hypoxic respiratory failure- worsening - baseline oxygen requirements: 5 L nasal cannula - supplemental oxygen: HFNC @ 20L/min, 90% FIO2; will attempt to wean as tolerated Pulmonology following; assistance appreciated - Continue protocol: continue pulse oximetry, wean oxygen as tolerated, ordered incentive spirometry and educated patient on how to use it and its importance - Unremarkable LE dopplers. V/Q scan low probability for PE - CTA of the chest: intersitial edema and central pulmonary arterial enlargement suggest of PAH - continue IV steroids; may benefit from R + L heart cath for further evaluation #Acute on chronic diastolic heart failure #cor pulmonale - Continue CHF exacerbation protocol: Telemetry, Strict I/O, monitor urine output every shift, daily weights, afterload reduction, low-sodium diet, and fluid restriction of approximately 1.5 mL/day - continue PO diuretics - ProBNP on admission: ,875 - Cardiology following; appreciate recs - TTE (03/04/2022) revealing EF 50-55% with normal-sized LV, lower limits of normal LV systolic function, borderline concentric LVH, severely dilated RV, severely reduced RV systolic function, mildly dilated LA, severely dilated RA, RVSP >95 mmHg, and severe pulmonary hypertension. #ESBL UTI/cystitis without hematuria Urinalysis revealing large leukocyte esterase, WBC 11, 1+ bacteria, few budding yeast. - Macrobid discontinued due to worsening renal function, ertapenem x3 doses started per ID recs Infectious disease following, assistance appreciated Continue precautions #Atypical chest painruled out Negative troponin x2 Likely secondary to volume overload in the setting of acute heart failure. #RIN on CKD stage III SCr 2.5 today Renally dose meds and avoid nephrotoxic drugs Nephrology following; appreciate recs #Mild protein caloric malnutrition Albumin 3.4 Continue dietary supplementation #Morbid obesity #Weight loss counseling #Exercise counseling - BMI 53.1 - Counseled patient on the importance of weight loss, incorporating exercise, and dietary changes (lean meats, fresh fruits and vegetables, and water intake). Patient expresses understanding. - Time: +15 min #Advanced care planning -Disease education conducted, care plan discussed, diagnoses discussed, prog nosis discussed, and patient acknowledges understanding with care plan -Time: +30 min Critical Care Billing: The high probability of a clinically significant, sudden or life threatening deterioration of the [respiratory] system(s) required my full and direct attention, intervention and personal management. The aggregate critical care time was [60] minutes. This time is in addition to time spent performing reported procedures but includes the following: [x] Data Review and interpretation [x] Patient assessment and monitoring of vital signs [x] Documentation [x] Medication orders and management History Interval history: Patient continues to be on high flow nasal cannula. Settings are currently 20 L/min and and 90% FiO2. She is able to tolerate more movement without getting winded. She has no new complaints at this time. Hospitalist Physical - Physical exam Narrative exam: GENERAL: Obese woman. Sitting on the bedside commode in no acute distress. HEENT: High flow nasal cannula. CHEST/LUNGS: Prolonged expiratory phase, otherwise CTAB. HEART/CARDIOVASCULAR: RRR. No murmur, rubs or gallops appreciated. ABDOMEN: +BS. NT/ND. NEURO: No focal motor deficit. Follows all commands. MUSCULOSKELETAL: No joint effusion EXTREMITIES: BLE chronic venous stasis changes. No clubbing or edema. PSYCH: Cooperative. - Constitutional Vitals: Temp Pulse Resp BP Pulse Ox 97.5 F L 63 18 129/69 96 03/11/22 07:40 03/11/22 07:40 03/11/22 07:40 03/11/22 07:40 03/11/22 07:40 General appearance: Present: mild distress, well-nourished, obese HEART Score - HEART Score Age: > 65 Risk factors: 1-2 risk factors Troponin: Troponin T < 0.010 ng/mL (0.00-0.029) 03/03/22 13:34 Troponin: < normal limit - Critical Actions Critical Actions: 4-6 pts:12-16.6% risk of adverse cardiac event. Should be admitted Results - Labs CBC & Chem 7: 03/08/22 09:44 03/11/22 06:44 Labs: Laboratory Last Values WBC 7.6 K/mm3 (4.5-11.0) 03/08/22 09:44 RBC 4.57 M/mm3 (3.65-5.03) 03/08/22 09:44 Hgb 13.3 gm/dl (10.1-14.3) 03/08/22 09:44 Hct 41.7 % (30.3-42.9) 03/08/22 09:44 MCV 91 fl (79-97) 03/08/22 09:44 MCH 29 pg (28-32) 03/08/22 09:44 MCHC 32 % (30-34) 03/08/22 09:44 RDW 15.9 % (13.2-15.2) H 03/08/22 09:44 Plt Count 207 K/mm3 (140-440) 03/08/22 09:44 Lymph % (Auto) 12.2 % (13.4-35.0) L 03/08/22 09:44 [place] % (Auto) 4.6 % (0.0-7.3) 03/08/22 09:44 Eos % (Auto) 3.0 % (0.0-4.3) 03/08/22 09:44 Baso % (Auto) 0.7 % (0.0-1.8) 03/08/22 09:44 Lymph # (Auto) 0.9 K/mm3 (1.2-5.4) L 03/08/22 09:44 [place] # (Auto) 0.4 K/mm3 (0.0-0.8) 03/08/22 09:44 Eos # (Auto) 0.2 K/mm3 (0.0-0.4) 03/08/22 09:44 Baso # (Auto) 0.1 K/mm3 (0.0-0.1) 03/08/22 09:44 Seg Neutrophils % 79.5 % (40.0-70.0) H 03/08/22 09:44 Seg Neutrophils # 6.0 K/mm3 (1.8-7.7) 03/08/22 09:44 Sodium 138 mmol/L (137-145) 03/11/22 06:44 Potassium 4.2 mmol/L (3.6-5.0) 03/11/22 06:44 Chloride 100.0 mmol/L (98-107) 03/11/22 06:44 Carbon Dioxide 24 mmol/L (22-30) 03/11/22 06:44 Anion Gap 18 mmol/L 03/11/22 06:44 BUN 108 mg/dL (7-17) H 03/11/22 06:44 Creatinine 2.5 mg/dL (0.6-1.2) H 03/11/22 06:44 Estimated GFR 23 ml/min 03/11/22 06:44 BUN/Creatinine Ratio 43 % 03/11/22 06:44 Glucose 141 mg/dL (65-100) H 03/11/22 06:44 Calcium 8.9 mg/dL (8.4-10.2) 03/11/22 06:44 Total Bilirubin 0.60 mg/dL (0.1-1.2) 03/04/22 02:51 AST 12 units/L (5-40) 03/04/22 02:51 ALT 6 units/L (7-56) L 03/04/22 02:51 Alkaline Phosphatase 91 units/L (35-129) 03/04/22 02:51 Troponin T < 0.010 ng/mL (0.00-0.029) 03/03/22 13:34 NT-Pro-B Natriuret Pep 38161 pg/mL (0-900) H 03/03/22 13:34 Total Protein 8.4 g/dL (6.3-8.2) H 03/04/22 02:51 Albumin 3.4 g/dL (3.9-5) L 03/04/22 02:51 Albumin/Globulin Ratio 0.7 % 03/04/22 02:51 Urine Color Yellow (Yellow) 03/04/22 17:35 Urine Turbidity Slightly-cloudy (Clear) 03/04/22 17:35 Urine pH 6.0 (5.0-7.0) 03/04/22 17:35 Ur Specific [place] 1.008 (1.003-1.030) 03/04/22 17:35 Urine Protein <15 mg/dl mg/dL (Negative) 03/04/22 17:35 Urine Glucose (UA) Neg mg/dL (Negative) 03/04/22 17:35 Urine Ketones Neg mg/dL (Negative) 03/04/22 17:35 Urine Blood Mod (Negative) 03/04/22 17:35 Urine Nitrite Neg (Negative) 03/04/22 17:35 Urine Bilirubin Neg (Negative) 03/04/22 17:35 Urine Urobilinogen < 2.0 mg/dL (<2.0) 03/04/22 17:35 Ur Leukocyte Esterase Lg (Negative) 03/04/22 17:35 Urine WBC (Auto) 11.0 /HPF (0.0-6.0) H 03/04/22 17:35 Urine RBC (Auto) 2.0 /HPF (0.0-6.0) 03/04/22 17:35 U Epithel Cells (Auto) 1.0 /HPF (0-13.0) 03/04/22 17:35 Urine Bacteria (Auto) 1+ /HPF (Negative) 03/04/22 17:35 Urine Mucus Few /HPF 03/04/22 17:35 Urine Yeast (Budding) Few /HPF 03/04/22 17:35 Urine Creatinine 41.2 mg/dL (0.1-20.0) H 03/04/22 17:35 Urine Sodium 126 mmol/L 03/04/22 17:35 Urine Total Protein 16 mg/dL (5-11.8) H 03/04/22 17:35 Coronavirus (PCR) Negative (Negative) 03/04/22 09:57 Gale/IV: Voiding Method External Female Catheter Active Medications - Current Medications Current Medications: Generic Name Dose Route Start Last Admin Trade Name Freq PRN Reason Stop Dose Admin Acetaminophen 650 mg 03/03/22 20:28 03/06/22 04:29 Acetaminophen 325 Mg Tab PO 650 mg Q4H PRN Administration Pain MILD(1-3)/Fever >100.5/HOFFMAN Famotidine 10 mg 03/08/22 10:00 03/10/22 22:34 Famotidine 10 Mg Tab PO 10 mg BID [facility]ERN Administration Furosemide 40 mg 03/10/22 18:00 03/11/22 05:33 Furosemide 40 Mg/4 Ml Inj IV 40 mg 0600,1800 [facility]ERN Administration Heparin Sodium (Porcine) 5,000 unit 03/04/22 14:00 03/11/22 05:33 Heparin 5,000 Unit/1 Ml Vial SUB-Q 5,000 unit Q8HR [facility]ERN Administration Methylprednisolone Sodium Succinate 60 mg 03/08/22 12:00 03/11/22 05:33 Methylprednisolone Sod Succinate 125 Mg/2 Ml Inj IV 60 mg Q6HR [facility]ERN Administration Metoclopramide HCl 10 mg 03/03/22 20:28 03/06/22 04:29 Metoclopramide 10 Mg/2 Ml Inj IV 10 mg Q6H PRN Administration Nausea And Vomiting Morphine Sulfate 2 mg 03/03/22 20:28 Morphine 2 Mg/1 Ml Inj IV Q4H PRN Pain, Moderate (4-6) Ondansetron HCl 4 mg 03/03/22 20:28 Ondansetron 4 Mg/2 Ml Inj IV Q8H PRN Nausea And Vomiting Oxycodone/Acetaminophen 1 tab 03/03/22 20:28 03/09/22 12:06 Oxycodone /Acetaminophen 5-325mg Tab PO 1 tab Q6H PRN Administration Pain, Moderate (4-6) Polyethylene Glycol 17 gm 03/06/22 11:00 Polyethylene Glycol 3350 17 Gm Powder PO QDAY PRN Constipation Senna/Docusate Sodium 2 tab 03/06/22 11:00 03/10/22 22:37 Sennosides/Docusate Sodium 8.6/50 Mg Tab PO Not Given Q12H [facility]ERN Sodium Chloride 10 ml 03/03/22 22:00 03/10/22 22:35 Sodium Chloride 0.9% 10 Ml Flush Syringe IV 10 ml BID VERN Administration Sodium Chloride 10 ml 03/03/22 20:28 Sodium Chloride 0.9% 10 Ml Flush Syringe IV PRN PRN LINE FLUSH
--- NOTE | 2022-03-11 10:40 | Progress Note ---
Assessment and Plan - Patient Problems (1) Interstitial edema Current Visit: Yes Status: Acute Plan to address problem: 71-year-old woman with morbid obesity, obstructive sleep apnea, hypertension, presents with shortness of breath and chest x-ray evidence of mild to moderate interstitial edema. Previous invasive cardiac work-up 10 years ago showed no significant coronary artery disease. Prior left ventricular systolic function assessment was well-preserved at 50%. Echocardiogram on this presentation demonstrates well-preserved left ventricular systolic function. Major finding on the echocardiogram is the presence of severe cor pulmonale with dilated right heart chambers, moderate to severe tricuspid regurgitation and severe pulmonary hypertension with pulmonary artery systolic pressures approaching systemic levels. We will defer to pulmonary for management of her chronic lung disease which is a primary pathology and etiology of chronic dyspnea and hypoxemia. Subjective Date of service: 03/11/22 Principal diagnosis: Hypoxic respiratory failure Interval history: Patient is comfortable, no cardiac complaints, no new cardiac events reported. On manager home improvement, there is a stable sinus rhythm at 76. Objective Vital Signs Temp Pulse Resp BP BP Pulse Ox 03/11/22 07:55 75 03/11/22 07:40 97.5 F L 63 18 129/69 96 03/11/22 07:22 97.5 F L 79 18 141/62 94 03/11/22 05:32 97.6 F 73 18 120/62 96 03/11/22 04:10 73 20 123/67 96 03/11/22 02:00 96 03/11/22 00:56 97.3 F L 85 18 126/60 100 03/11/22 00:00 82 22 123/67 97 03/10/22 22:00 96 03/10/22 20:58 98.2 F 88 20 115/50 96 03/10/22 20:00 94 03/10/22 16:40 97.9 F 88 18 95 03/10/22 16:39 98.0 F 83 18 123/67 95 03/10/22 16:00 85 03/10/22 14:00 94 - Physical Examination General: No Apparent Distress HEENT: Positive: PERRL Neck: Positive: neck supple Cardiac: Positive: Reg Rate and Rhythm Lungs: Positive: Decreased Breath Sounds Neuro: Positive: Grossly Intact Abdomen: Positive: Soft Skin: Positive: Clear Extremities: Present: edema (Minimal) - Labs and Meds Comprehensive Metabolic Panel 03/11/22 Range/Units 06:44 Sodium 138 (137-145) mmol/L Potassium 4.2 (3.6-5.0) mmol/L Chloride 100.0 (98-107) mmol/L Carbon Dioxide 24 (22-30) mmol/L BUN 108 H (7-17) mg/dL Creatinine 2.5 H (0.6-1.2) mg/dL Glucose 141 H (65-100) mg/dL Calcium 8.9 (8.4-10.2) mg/dL - Imaging and Cardiology EKG: report reviewed (Sinus tachycardia no acute ST-T wave changes)
[2022-03-11] MEDS: SENNOSIDES/DOCUSATE SODIUM 8.6/50 MG TAB PO SCH ×2 (10:44→22:08)
[2022-03-11 10:53] LABS: ABG Base Excess 0.2 mmol/L (-2.0-3.0); ABG HCO3 27.3 mmol/L (20.0-26.0); ABG Methemoglobin 0.4 % (0.0-1.5); ABG PCO2 54.7 mm Hg; ABG PH 7.316 pH Units (7.350-7.450)
[2022-03-11] MEDS: FAMOTIDINE 10 MG TAB PO SCH ×2 (10:59→22:07)
[2022-03-11] MEDS ORDERED: METOCLOPRAMIDE 10 MG/2 ML INJ IV PRN (12:00)
[2022-03-11] MEDS: SILDENAFIL 20 MG TAB PO SCH ×2 (13:42→22:07)
[2022-03-11] MEDS: ACETAMINOPHEN 325 MG TAB PO PRN (17:06)
--- NOTE | 2022-03-11 22:05 | Progress Note ---
Assessment and Plan Imp: 1. A/C respiratory failure, hypoxia 2. Morbid obesity 3. A/C diastolic CHF 4. Pulm HTN 5. ELISEO 6. OHS 7. UTI 8. RIN on CKD Rec: 1. ABG demonstrates mild CO2 retention c/w OHS 2. Prior office Spirometry x 2 was negative for COPD and there is no parenchymal lung process on CT Chest that would explain the severe pulm HTN; V/Q is negative for CTEPH; suspect some degree of diastolic dysfunction so cont. Lasix IV, but there may very well be a WHO group 1 component to her pulmonary HTN; optimally she should have a RHC but currently is a suboptimal candidate for the same; will give her a trial of Sildenafil 20mg TID 3. Wean O2 to keep sats 88-94% 4. Weight loss 5. Repeat outpatient PFTs 6. Cont. BIPAP QHS 7. Complex decision-making Plan of care reviewed w/ patient she understands/agrees Subjective Date of service: 03/11/22 Principal diagnosis: Hypoxic respiratory failure Interval history: No events. On HFNC 90% and 20LPM. SOB is a little better. No new complaints. Active Medications Acetaminophen (Acetaminophen 325 Mg Tab) 650 mg PO Q4H PRN PRN Reason: Pain MILD(1-3)/Fever >100.5/HOFFMAN Last Admin: 03/11/22 17:06 Dose: 650 mg Famotidine (Famotidine 10 Mg Tab) 10 mg PO BID [facility] Last Admin: 03/12/22 09:05 Dose: 10 mg Furosemide (Furosemide 40 Mg/4 Ml Inj) 40 mg IV 0600,1800 [facility] Last Admin: 03/12/22 06:04 Dose: 40 mg Heparin Sodium (Porcine) (Heparin 5,000 Unit/1 Ml Vial) 5,000 unit SUB-Q Q8HR [facility] Last Admin: 03/12/22 13:01 Dose: 5,000 unit Methylprednisolone Sodium Succinate (Methylprednisolone Sod Succinate 125 Mg/2 Ml Inj) 60 mg IV Q6HR [facility] Last Admin: 03/12/22 13:01 Dose: 60 mg Metoclopramide HCl (Metoclopramide 10 Mg/2 Ml Inj) 5 mg IV Q6H PRN PRN Reason: Nausea And Vomiting Morphine Sulfate (Morphine 2 Mg/1 Ml Inj) 2 mg IV Q4H PRN PRN Reason: Pain, Moderate (4-6) Ondansetron HCl (Ondansetron 4 Mg/2 Ml Inj) 4 mg IV Q8H PRN PRN Reason: Nausea And Vomiting Oxycodone/Acetaminophen (Oxycodone /Acetaminophen 5-325mg Tab) 1 tab PO Q6H PRN PRN Reason: Pain, Moderate (4-6) Last Admin: 03/09/22 12:06 Dose: 1 tab Polyethylene Glycol (Polyethylene Glycol 3350 17 Gm Powder) 17 gm PO QDAY PRN PRN Reason: Constipation Senna/Docusate Sodium (Sennosides/Docusate Sodium 8.6/50 Mg Tab) 2 tab PO Q12H [facility] Last Admin: 03/12/22 11:22 Dose: Not Given Sildenafil Citrate (Sildenafil 20 Mg Tab) 20 mg PO TID [facility] Last Admin: 03/12/22 13:01 Dose: 20 mg Sodium Chloride (Sodium Chloride 0.9% 10 Ml Flush Syringe) 10 ml IV BID [facility] Last Admin: 03/12/22 09:05 Dose: 10 ml Sodium Chloride (Sodium Chloride 0.9% 10 Ml Flush Syringe) 10 ml IV PRN PRN PRN Reason: LINE FLUSH Objective Vital Signs - 12hr 03/11/22 03/11/22 03/11/22 11:21 15:55 20:00 Temperature 97.7 F 97.2 F L Pulse Rate 80 83 Respiratory 18 18 Rate Blood Pressure 150/72 146/72 Blood Pressure [Left] O2 Sat by Pulse 98 90 95 Oximetry 03/11/22 20:35 Temperature 98.1 F Pulse Rate 80 Respiratory 18 Rate Blood Pressure Blood Pressure 150/73 [Left] O2 Sat by Pulse 96 Oximetry Constitutional: no acute distress, alert, other (obese) Eyes: non-icteric ENT: oropharynx moist Neck: supple, other (large in circumference) Effort: mildly labored Ascultation: Bilateral: diminished breath sounds Cardiovascular: regular rate and rhythm (no mrg) Gastrointestinal: normoactive bowel sounds, soft, non-tender, non-distended Integumentary: normal Extremities: no cyanosis, no edema, pink and warm Neurologic: normal mental status, non-focal exam, pupils equal and round Psychiatric: mood appropriate, affect normal CBC and BMP: 03/08/22 09:44 03/12/22 06:27 ABG, PT/INR, D-dimer: ABG ABG pH 7.316 pH Units (7.350-7.450) L 03/11/22 10:35 ABG pCO2 54.7 mm Hg 03/11/22 10:35 ABG pO2 81.0 mm Hg (80.0-90.0) 03/11/22 10:35 ABG O2 Saturation 95.0 % (95.0-99.0) 03/11/22 10:35 Abnormal lab findings: Abnormal Labs 03/03/22 03/03/22 03/03/22 13:34 13:34 13:34 RDW 16.1 H Lymph % (Auto) 9.7 L Lymph # (Auto) 0.8 L Seg Neutrophils % 84.6 H ABG pH ABG HCO3 Oxyhemoglobin Potassium BUN 47 H Creatinine 1.7 H Glucose 101 H ALT NT-Pro-B Natriuret Pep 83887 H Total Protein 9.1 H Albumin 3.5 L Urine WBC (Auto) Urine Creatinine Urine Total Protein 03/04/22 03/04/22 03/04/22 02:51 03:05 17:35 RDW 16.0 H Lymph % (Auto) 8.9 L Lymph # (Auto) 0.8 L Seg Neutrophils % 84.1 H ABG pH ABG HCO3 Oxyhemoglobin Potassium BUN 46 H Creatinine 1.8 H Glucose 119 H ALT 6 L NT-Pro-B Natriuret Pep Total Protein 8.4 H Albumin 3.4 L Urine WBC (Auto) 11.0 H Urine Creatinine Urine Total Protein 03/04/22 03/05/22 03/05/22 17:35 12:08 15:18 RDW Lymph % (Auto) Lymph # (Auto) Seg Neutrophils % ABG pH ABG HCO3 Oxyhemoglobin Potassium 6.4 H* D BUN 55 H 55 H Creatinine 2.0 H 2.0 H Glucose 120 H 116 H ALT NT-Pro-B Natriuret Pep Total Protein Albumin Urine WBC (Auto) Urine Creatinine 41.2 H Urine Total Protein 16 H 03/06/22 03/08/22 03/08/22 05:25 09:44 09:44 RDW 15.9 H Lymph % (Auto) 12.2 L Lymph # (Auto) 0.9 L Seg Neutrophils % 79.5 H ABG pH ABG HCO3 Oxyhemoglobin Potassium BUN 58 H 69 H Creatinine 2.1 H 2.3 H Glucose 103 H ALT NT-Pro-B Natriuret Pep Total Protein Albumin Urine WBC (Auto) Urine Creatinine Urine Total Protein 03/08/22 03/09/22 03/10/22 14:36 05:43 07:16 RDW Lymph % (Auto) Lymph # (Auto) Seg Neutrophils % ABG pH ABG HCO3 Oxyhemoglobin Potassium 5.3 H D BUN 70 H 82 H 95 H Creatinine 2.4 H 2.5 H 2.3 H Glucose 125 H 149 H 141 H ALT NT-Pro-B Natriuret Pep Total Protein Albumin Urine WBC (Auto) Urine Creatinine Urine Total Protein 03/11/22 03/11/22 06:44 10:35 RDW Lymph % (Auto) Lymph # (Auto) Seg Neutrophils % ABG pH 7.316 L ABG HCO3 27.3 H Oxyhemoglobin 94.0 L Potassium BUN 108 H Creatinine 2.5 H Glucose 141 H ALT NT-Pro-B Natriuret Pep Total Protein Albumin Urine WBC (Auto) Urine Creatinine Urine Total Protein Chest x-ray: report reviewed, image reviewed CT scan - chest: report reviewed, image reviewed
[2022-03-12] MEDS: methylPREDNISolone Sod Succinate 125 MG/2 ML INJ IV SCH ×4 (00:15→17:02)
[2022-03-12] MEDS: HEPARIN 5,000 UNIT/1 ML VIAL SUB-Q SCH ×3 (06:03→21:53)
[2022-03-12] MEDS: FUROSEMIDE 40 MG/4 ML INJ IV SCH ×2 (06:04→17:04)
[2022-03-12 07:14] LABS: Calcium 8.6 mg/dL (8.4-10.2)
[2022-03-12] MEDS: SILDENAFIL 20 MG TAB PO SCH ×3 (09:05→20:17)
[2022-03-12] MEDS: FAMOTIDINE 10 MG TAB PO SCH (09:05)
--- NOTE | 2022-03-12 09:19 | Progress Note ---
Assessment and Plan Assessment and plan: #Severe pulmonary arterial hypertension #Acute on chronic hypoxic respiratory failure- worsening - baseline oxygen requirements: 5 L nasal cannula - supplemental oxygen: HFNC @ 20L/min, 90% FIO2; will attempt to wean as tolerated Pulmonology following; assistance appreciated - Continue protocol: continue pulse oximetry, wean oxygen as tolerated, ordered incentive spirometry and educated patient on how to use it and its importance - Unremarkable LE dopplers. V/Q scan low probability for PE - CTA of the chest: intersitial edema and central pulmonary arterial enlargement suggest of PAH - continue IV steroids; may benefit from R + L heart cath for further evaluation - Patient is on sildenafil #Acute on chronic diastolic heart failure #cor pulmonale - Continue CHF exacerbation protocol: Telemetry, Strict I/O, monitor urine output every shift, daily weights, afterload reduction, low-sodium diet, and fluid restriction of approximately 1.5 mL/day - continue PO diuretics - ProBNP on admission: 11,875 - Cardiology following; appreciate recs - TTE (03/04/2022) revealing EF 50-55% with normal-sized LV, lower limits of normal LV systolic function, borderline concentric LVH, severely dilated RV, severely reduced RV systolic function, mildly dilated LA, severely dilated RA, RVSP >95 mmHg, and severe pulmonary hypertension. -Patient is on IV Lasix #ESBL UTI/cystitis without hematuria Urinalysis revealing large leukocyte esterase, WBC 11, 1+ bacteria, few budding yeast. - Macrobid discontinued due to worsening renal function, ertapenem x3 doses started per ID recs Infectious disease following, assistance appreciated Continue precautions #Atypical chest painruled out Negative troponin x2 Likely secondary to volume overload in the setting of acute heart failure. #RIN on CKD stage III SCr 2.5 today Renally dose meds and avoid nephrotoxic drugs Nephrology following; appreciate recs #Mild protein caloric malnutrition Albumin 3.4 Continue dietary supplementation #Morbid obesity #Weight loss counseling #Exercise counseling - BMI 53.1 - Counseled patient on the importance of weight loss, incorporating exercise, an d dietary changes (lean meats, fresh fruits and vegetables, and water intake). Patient expresses understanding. - Time: +15 min #Advanced care planning -Disease education conducted, care plan discussed, diagnoses discussed, prognosis discussed, and patient acknowledges understanding with care plan -Time: +30 min History Interval history: Patient was seen and evaluated this morning Patient was on 22 L of high flow oxygen Hospitalist Physical - Physical exam Narrative exam: GENERAL: Obese woman. Sitting on the bedside commode in no acute distress. HEENT: High flow nasal cannula. CHEST/LUNGS: Prolonged expiratory phase, otherwise CTAB. HEART/CARDIOVASCULAR: RRR. No murmur, rubs or gallops appreciated. ABDOMEN: +BS. NT/ND. NEURO: No focal motor deficit. Follows all commands. MUSCULOSKELETAL: No joint effusion EXTREMITIES: BLE chronic venous stasis changes. No clubbing or edema. PSYCH: Cooperative. - Constitutional Vitals: Temp Pulse Resp BP Pulse Ox 97.5 F L 78 18 104/62 96 03/12/22 06:01 03/12/22 08:08 03/12/22 08:08 03/12/22 06:01 03/12/22 08:08 General appearance: Present: mild distress, well-nourished, obese HEART Score - HEART Score Age: > 65 Risk factors: 1-2 risk factors Troponin: Troponin T < 0.010 ng/mL (0.00-0.029) 03/03/22 13:34 Troponin: < normal limit - Critical Actions Critical Actions: 4-6 pts:12-16.6% risk of adverse cardiac event. Should be admitted Results - Labs CBC & Chem 7: 03/08/22 09:44 03/12/22 06:27 Labs: Laboratory Last Values WBC 7.6 K/mm3 (4.5-11.0) 03/08/22 09:44 RBC 4.57 M/mm3 (3.65-5.03) 03/08/22 09:44 Hgb 13.3 gm/dl (10.1-14.3) 03/08/22 09:44 Hct 41.7 % (30.3-42.9) 03/08/22 09:44 MCV 91 fl (79-97) 03/08/22 09:44 MCH 29 pg (28-32) 03/08/22 09:44 MCHC 32 % (30-34) 03/08/22 09:44 RDW 15.9 % (13.2-15.2) H 03/08/22 09:44 Plt Count 207 K/mm3 (140-440) 03/08/22 09:44 Lymph % (Auto) 12.2 % (13.4-35.0) L 03/08/22 09:44 Lucas % (Auto) 4.6 % (0.0-7.3) 03/08/22 09:44 Eos % (Auto) 3.0 % (0.0-4.3) 03/08/22 09:44 Baso % (Auto) 0.7 % (0.0-1.8) 03/08/22 09:44 Lymph # (Auto) 0.9 K/mm3 (1.2-5.4) L 03/08/22 09:44 Lucas # (Auto) 0.4 K/mm3 (0.0-0.8) 03/08/22 09:44 Eos # (Auto) 0.2 K/mm3 (0.0-0.4) 03/08/22 09:44 Baso # (Auto) 0.1 K/mm3 (0.0-0.1) 03/08/22 09:44 Seg Neutrophils % 79.5 % (40.0-70.0) H 03/08/22 09:44 Seg Neutrophils # 6.0 K/mm3 (1.8-7.7) 03/08/22 09:44 ABG pH 7.316 pH Units (7.350-7.450) L 03/11/22 10:35 ABG pCO2 54.7 mm Hg 03/11/22 10:35 ABG pO2 81.0 mm Hg (80.0-90.0) 03/11/22 10:35 ABG HCO3 27.3 mmol/L (20.0-26.0) H 03/11/22 10:35 ABG O2 Saturation 95.0 % (95.0-99.0) 03/11/22 10:35 ABG O2 Content 18.1 (0.0-44) 03/11/22 10:35 ABG Base Excess 0.2 mmol/L (-2.0-3.0) 03/11/22 10:35 ABG Hemoglobin 13.7 gm/dl (12.0-16.0) 03/11/22 10:35 ABG Carboxyhemoglobin 0.7 % (0.0-5.0) 03/11/22 10:35 ABG Methemoglobin 0.4 % (0.0-1.5) 03/11/22 10:35 Oxyhemoglobin 94.0 % (95.0-99.0) L 03/11/22 10:35 FiO2 90 % 03/11/22 10:35 Sodium 141 mmol/L (137-145) 03/12/22 06:27 Potassium 3.9 mmol/L (3.6-5.0) 03/12/22 06:27 Chloride 101.9 mmol/L (98-107) 03/12/22 06:27 Carbon Dioxide 27 mmol/L (22-30) 03/12/22 06:27 Anion Gap 16 mmol/L 03/12/22 06:27 BUN 113 mg/dL (7-17) H 03/12/22 06:27 Creatinine 2.4 mg/dL (0.6-1.2) H 03/12/22 06:27 Estimated GFR 24 ml/min 03/12/22 06:27 BUN/Creatinine Ratio 47 % 03/12/22 06:27 Glucose 216 mg/dL (65-100) H 03/12/22 06:27 Calcium 8.6 mg/dL (8.4-10.2) 03/12/22 06:27 Total Bilirubin 0.60 mg/dL (0.1-1.2) 03/04/22 02:51 AST 12 units/L (5-40) 03/04/22 02:51 ALT 6 units/L (7-56) L 03/04/22 02:51 Alkaline Phosphatase 91 units/L (35-129) 03/04/22 02:51 Troponin T < 0.010 ng/mL (0.00-0.029) 03/03/22 13:34 NT-Pro-B Natriuret Pep 38341 pg/mL (0-900) H 03/03/22 13:34 Total Protein 8.4 g/dL (6.3-8.2) H 03/04/22 02:51 Albumin 3.4 g/dL (3.9-5) L 03/04/22 02:51 Albumin/Globulin Ratio 0.7 % 03/04/22 02:51 Urine Color Yellow (Yellow) 03/04/22 17:35 Urine Turbidity Slightly-cloudy (Clear) 03/04/22 17:35 Urine pH 6.0 (5.0-7.0) 03/04/22 17:35 Ur Specific [place] 1.008 (1.003-1.030) 03/04/22 17:35 Urine Protein <15 mg/dl mg/dL (Negative) 03/04/22 17:35 Urine Glucose (UA) Neg mg/dL (Negative) 03/04/22 17:35 Urine Ketones Neg mg/dL (Negative) 03/04/22 17:35 Urine Blood Mod (Negative) 03/04/22 17:35 Urine Nitrite Neg (Negative) 03/04/22 17:35 Urine Bilirubin Neg (Negative) 03/04/22 17:35 Urine Urobilinogen < 2.0 mg/dL (<2.0) 03/04/22 17:35 Ur Leukocyte Esterase Lg (Negative) 03/04/22 17:35 Urine WBC (Auto) 11.0 /HPF (0.0-6.0) H 03/04/22 17:35 Urine RBC (Auto) 2.0 /HPF (0.0-6.0) 03/04/22 17:35 U Epithel Cells (Auto) 1.0 /HPF (0-13.0) 03/04/22 17:35 Urine Bacteria (Auto) 1+ /HPF (Negative) 03/04/22 17:35 Urine Mucus Few /HPF 03/04/22 17:35 Urine Yeast (Budding) Few /HPF 03/04/22 17:35 Urine Creatinine 41.2 mg/dL (0.1-20.0) H 03/04/22 17:35 Urine Sodium 126 mmol/L 03/04/22 17:35 Urine Total Protein 16 mg/dL (5-11.8) H 03/04/22 17:35 Coronavirus (PCR) Negative (Negative) 03/04/22 09:57 Gale/IV: Voiding Method External Female Catheter Active Medications - Current Medications Current Medications: Generic Name Dose Route Start Last Admin Trade Name Freq PRN Reason Stop Dose Admin Acetaminophen 650 mg 03/03/22 20:28 03/11/22 17:06 Acetaminophen 325 Mg Tab PO 650 mg Q4H PRN Administration Pain MILD(1-3)/Fever >100.5/HOFFMAN Famotidine 10 mg 03/08/22 10:00 03/12/22 09:05 Famotidine 10 Mg Tab PO 10 mg BID VERN Administration Furosemide 40 mg 03/10/22 18:00 03/12/22 06:04 Furosemide 40 Mg/4 Ml Inj IV 40 mg 0600,1800 VERN Administration Heparin Sodium (Porcine) 5,000 unit 03/04/22 14:00 03/12/22 06:03 Heparin 5,000 Unit/1 Ml Vial SUB-Q 5,000 unit Q8HR [facility]ERN Administration Methylprednisolone Sodium Succinate 60 mg 03/08/22 12:00 03/12/22 06:05 Methylprednisolone Sod Succinate 125 Mg/2 Ml Inj IV 60 mg Q6HR [facility]ERN Administration Metoclopramide HCl 5 mg 03/11/22 12:00 Metoclopramide 10 Mg/2 Ml Inj IV Q6H PRN Nausea And Vomiting Morphine Sulfate 2 mg 03/03/22 20:28 Morphine 2 Mg/1 Ml Inj IV Q4H PRN Pain, Moderate (4-6) Ondansetron HCl 4 mg 03/03/22 20:28 Ondansetron 4 Mg/2 Ml Inj IV Q8H PRN Nausea And Vomiting Oxycodone/Acetaminophen 1 tab 03/03/22 20:28 03/09/22 12:06 Oxycodone /Acetaminophen 5-325mg Tab PO 1 tab Q6H PRN Administration Pain, Moderate (4-6) Polyethylene Glycol 17 gm 03/06/22 11:00 Polyethylene Glycol 3350 17 Gm Powder PO QDAY PRN Constipation Senna/Docusate Sodium 2 tab 03/06/22 11:00 03/11/22 22:08 Sennosides/Docusate Sodium 8.6/50 Mg Tab PO Not Given Q12H [facility] Sildenafil Citrate 20 mg 03/11/22 14:00 03/12/22 09:05 Sildenafil 20 Mg Tab PO 20 mg TID [facility]ERN Administration Sodium Chloride 10 ml 03/03/22 22:00 03/12/22 09:05 Sodium Chloride 0.9% 10 Ml Flush Syringe IV 10 ml BID [facility]ERN Administration Sodium Chloride 10 ml 03/03/22 20:28 Sodium Chloride 0.9% 10 Ml Flush Syringe IV PRN PRN LINE FLUSH Nutrition/Malnutrition Assess - Dietary Evaluation Nutrition/Malnutrition Findings: Nutrition Notes Start: 03/11/22 14:05 Freq: Status: Active Protocol: Document 03/11/22 14:05 RAOUL (Rec: 03/11/22 14:21 RAOUL [id number]) Nutrition Notes Need for Assessment generated from: LOS Initial or Follow up Assessment Current Diagnosis Acute Kidney Injury,CKD(stage I-IV),Respiratory Failure, Malnutrition Other Pertinent Diagnosis HFpEF, Cor Pulmonale, UTI, Cystitis. Current Diet Cardiac -Renal- Diet (from D 03/11). Labs/Tests 03/11: BUN 108, Crea 2.5, Glu 141. Pertinent Medications 03/11: Nutritionally unremarkable. Height 5 ft 3 in Weight 134.7 kg [place] Body Weight (kg) 52.27 BMI 52.6 Intake Prior to Admission Good Weight change and time frame Pt denies having loss body weight [employer]. Weight Status Morbidly Obese Subjective/Other Information RD consult for LOS assessment. Pt's PO intake of meals has been Good (>75%) but fairly tolerated, according to ADL notes. I will prescribe renal modification to current diet to support Pt's RIN/CKD condition during LOS. Pt is on High-Flow Nasal Cannula, O2 saturation @ 96%, according to Physical Assessment History notes. Pt presents an > as signs of concern for skin risk at this time, according to Physical Assessment History notes. Percent of energy/protein needs met: Prescribed Cardiac -Renal- Diet provides for energy/ protein needs (2,230 Kcal/85 g ) during LOS. Burn Absent Trauma Absent GI Symptoms None Food Allergy Yes Skin Integrity/Comment Unspecified dryness and flakiness. Current % PO Good (75-100%) Minimum of two criteria No Fluid Accumulation N/A Reduced Sider Strength N/A (non-severe) Protein-Calorie Malnutrition N\A #1 Nutrition Diagnosis Altered nutrition-related laboratory values Etiology RIN/CKD III. As Evidenced by Signs and Symptoms 03/11: BUN 108, Crea 2.5. Is patient on ventilator? No Is Patient Ambulatory and/or Out of Bed Yes REE-(Prentiss-St. Jeor-ambulatory/OOB) [ 0196.969 [id number]] Kcal/Kg value to use for calculation 10 Approximate Energy Requirements Using 1347 kcal/Kg Calculation Used for Recommendations Kcal/kg Additional Notes Protein: 0.6-0.8 g/Kg AdjBW; 56-75 g/day. Fluids: 1 ml/Kcal, or as per MD. Nutrition Intervention Change Diet Order: Modify to Cardiac -Renal- Diet . Goal #1 Adjust the dietary intervention to better serve Pt's needs and clinical conditions during LOS. Additional Comments Continue monitoring food tolerance, %PO intake of meals , and BM.
[2022-03-12] MEDS: SENNOSIDES/DOCUSATE SODIUM 8.6/50 MG TAB PO SCH ×2 (11:22→22:00)
--- NOTE | 2022-03-12 12:32 | Progress Note ---
Assessment and Plan - Patient Problems (1) Interstitial edema Current Visit: Yes Status: Acute Plan to address problem: 71-year-old woman with morbid obesity, obstructive sleep apnea, hypertension, presents with shortness of breath and chest x-ray evidence of mild to moderate interstitial edema. Previous invasive cardiac work-up 10 years ago showed no significant coronary artery disease. Prior left ventricular systolic function assessment was well-preserved at 50%. Echocardiogram on this presentation demonstrates well-preserved left ventricular systolic function. Major finding on the echocardiogram is the presence of severe cor pulmonale with dilated right heart chambers, moderate to severe tricuspid regurgitation and severe pulmonary hypertension with pulmonary artery systolic pressures approaching systemic levels. Chronic lung disease appears to be primary etiology for dyspnea, respiratory insufficiency and hypoxemia. Subjective Date of service: 03/12/22 Principal diagnosis: Hypoxic respiratory failure Interval history: Patient is comfortable, no cardiac complaints, no new cardiac events reported. On gambling monitor, there is a stable sinus rhythm. Objective Vital Signs Temp Pulse Pulse Resp BP BP Pulse Ox 03/12/22 09:00 96 03/12/22 08:22 97.4 F L 84 18 149/85 93 03/12/22 08:08 78 18 96 03/12/22 08:00 75 21 94 03/12/22 07:25 77 03/12/22 06:01 97.5 F L 78 18 104/62 95 03/12/22 02:40 70 21 97 03/12/22 00:22 98.2 F 84 20 131/5 99 03/12/22 00:00 96 03/11/22 22:26 84 03/11/22 22:00 96 03/11/22 20:35 98.1 F 80 18 150/73 96 03/11/22 20:00 95 03/11/22 15:55 97.2 F L 83 18 146/72 90 - Physical Examination General: No Apparent Distress HEENT: Positive: PERRL Neck: Positive: neck supple Cardiac: Positive: Reg Rate and Rhythm Lungs: Positive: Decreased Breath Sounds Neuro: Positive: Grossly Intact Abdomen: Positive: Soft Skin: Positive: Clear Extremities: Present: edema (Minimal) - Labs and Meds Comprehensive Metabolic Panel 03/12/22 Range/Units 06:27 Sodium 141 (137-145) mmol/L Potassium 3.9 (3.6-5.0) mmol/L Chloride 101.9 (98-107) mmol/L Carbon Dioxide 27 (22-30) mmol/L BUN 113 H (7-17) mg/dL Creatinine 2.4 H (0.6-1.2) mg/dL Glucose 216 H (65-100) mg/dL Calcium 8.6 (8.4-10.2) mg/dL - Imaging and Cardiology EKG: report reviewed (Sinus tachycardia no acute ST-T wave changes)
--- NOTE | 2022-03-12 14:22 | Progress Note ---
Assessment and Plan - Patient Problems (1) Acute kidney injury Current Visit: Yes Status: Acute Plan to address problem: Prerenal azotemia secondary to acute cardiorenal syndrome/diuresis. Kidney indices are a bit worse. Steroids also contributing to the severe azotemia. Follow-up electrolytes and renal function (2) Acute exacerbation of congestive heart failure Current Visit: Yes Status: Acute Qualifiers: Heart failure type: combined systolic and diastolic Qualified Code(s): I50.43 - Acute on chronic combined systolic (congestive) and diastolic (congestive) heart failure Plan to address problem: Cardiology input appreciated. Preserved ejection fraction with severe pulmonary hypertension. CT chest showed cardiomegaly with interstitial edema. Incomplete records of intake/output. Continue IV diuretics. Will decrease Lasix to once daily in the morning. Discussed with the patient about possible need for dialysis. Hopefully kidney function stabilizes. (3) Acute respiratory failure with hypoxia Current Visit: Yes Status: Acute Plan to address problem: Multifactorial. Continue respiratory support/management by transportation program director (4) Chronic kidney disease, stage 3b Current Visit: Yes Status: Acute Plan to address problem: Kidney function is a bit worse. Will be cautious with diuresis. Follow-up electrolytes and renal function (5) Hypertensive chronic kidney disease with stage 1 through stage 4 chronic kidney disease, or unspecified chronic kidney disease Current Visit: Yes Status: Acute Plan to address problem: Follow-up blood pressure on current medications. (6) Urinary tract infection Current Visit: Yes Status: Acute Plan to address problem: ESBL urinary tract infection on ertapenem per Infectious disease (7) GERD (gastroesophageal reflux disease) Current Visit: Yes Status: Acute Plan to address problem: Resume omeprazole which she was taking at home. (8) Sinusitis Current Visit: Yes Status: Acute Plan to address problem: Resume Mucinex and Claritin. Subjective Date of service: 03/12/22 Principal diagnosis: Hypoxic respiratory failure Interval history: Patient seen lying in bed. No shortness of breath at rest but on mild exertion. Admits to discomfort in her chest. Complains of symptoms of reflux and sinusitis. She was taking medications at home which she is not getting now. On oxygen by high flow nasal cannula. No nausea or vomiting Objective - Exam Narrative Exam: Morbidly elderly -French female lying in bed on oxygen via high flow nasal cannula HEENT: NCAT, pink conjunctiva Neck: Supple, no venous distention CVS: S1S2 RRR with no murmur, rub or gallop Chest: Clear to auscultation but breath sounds diminished Abdomen: Obese, soft, nontender, no organomegaly, bowel sounds are present Extremities: No edema Genitourinary deferred Skin warm and dry with hyperpigmentation in both legs and feet Neuro: Awake, alert no focal deficits - Vital Signs Vital signs: Vital Signs - 12hr 03/12/22 03/12/22 03/12/22 02:40 06:01 07:25 Temperature 97.5 F L Pulse Rate 70 78 77 Pulse Rate [ Radial] Respiratory 21 18 Rate Blood Pressure Blood Pressure 104/62 [Left] O2 Sat by Pulse 97 95 Oximetry 03/12/22 03/12/22 03/12/22 08:00 08:08 08:22 Temperature 97.4 F L Pulse Rate 75 84 Pulse Rate [ 78 Radial] Respiratory 21 18 18 Rate Blood Pressure 149/85 Blood Pressure [Left] O2 Sat by Pulse 94 96 93 Oximetry 03/12/22 09:00 Temperature Pulse Rate Pulse Rate [ Radial] Respiratory Rate Blood Pressure Blood Pressure [Left] O2 Sat by Pulse 96 Oximetry - Lab 03/08/22 09:44 03/12/22 06:27 Most recent lab results ABG pH 7.316 pH Units (7.350-7.450) L 03/11/22 10:35 ABG pCO2 54.7 mm Hg 03/11/22 10:35 ABG pO2 81.0 mm Hg (80.0-90.0) 03/11/22 10:35 ABG HCO3 27.3 mmol/L (20.0-26.0) H 03/11/22 10:35 ABG O2 Saturation 95.0 % (95.0-99.0) 03/11/22 10:35 Calcium 8.6 mg/dL (8.4-10.2) 03/12/22 06:27 Urine Creatinine 41.2 mg/dL (0.1-20.0) H 03/04/22 17:35 Urine Sodium 126 mmol/L 03/04/22 17:35 Urine Total Protein 16 mg/dL (5-11.8) H 03/04/22 17:35 Medications & Allergies - Medications Allergies/Adverse Reactions: Allergies iodine Allergy (Verified 03/03/22 12:49) Anaphylaxis Penicillins Allergy (Verified 03/03/22 12:49) Anaphylaxis shellfish derived Allergy (Verified 03/03/22 12:49) Anaphylaxis Home Medications: Home Medications Medication Instructions Recorded Confirmed Last Taken Type Acetaminophen [Non-Aspirin Extra 500 mg PO Q8HR PRN 03/04/22 03/04/22 03/01/22 History Strength] Aspirin EC 325 mg PO 4XW 03/04/22 03/04/22 03/02/22 History Hydrocodone-Acetamin 2.5-325 5 - 325 mg PO Q6HR PRN 03/04/22 03/04/22 03/02/22 History Mucus Relief ER 600 mg PO BID 03/04/22 03/05/22 03/02/22 History Omeprazole 40 mg PO DAILY 03/04/22 03/05/22 03/02/22 History Phenazopyridine 200 mg PO TID 03/04/22 03/04/22 03/03/22 History Senna Plus Tablet 8.6 - 50 mg PO BID MDD CONSTIPATION 03/04/22 03/05/22 03/02/22 History Diclofenac Sodium ER 75 mg PO Q8HR 03/05/22 03/05/22 03/02/22 History Nifedipine ER 60 mg PO DAILY 03/05/22 03/05/22 03/02/22 History Vitamin D3 25 mg PO DAILY 03/05/22 03/05/22 03/02/22 History Active Medications: Generic Name Dose Route Start Last Admin Trade Name Freq PRN Reason Stop Dose Admin Acetaminophen 650 mg 03/03/22 20:28 03/11/22 17:06 Acetaminophen 325 Mg Tab PO 650 mg Q4H PRN Administration Pain MILD(1-3)/Fever >100.5/HOFFMAN Famotidine 10 mg 03/08/22 10:00 03/12/22 09:05 Famotidine 10 Mg Tab PO 10 mg BID VERN Administration Furosemide 40 mg 03/10/22 18:00 03/12/22 06:04 Furosemide 40 Mg/4 Ml Inj IV 40 mg 0600,1800 VERN Administration Heparin Sodium (Porcine) 5,000 unit 03/04/22 14:00 03/12/22 13:01 Heparin 5,000 Unit/1 Ml Vial SUB-Q 5,000 unit Q8HR VERN Administration Methylprednisolone Sodium Succinate 60 mg 03/08/22 12:00 03/12/22 13:01 Methylprednisolone Sod Succinate 125 Mg/2 Ml Inj IV 60 mg Q6HR VERN Administration Metoclopramide HCl 5 mg 03/11/22 12:00 Metoclopramide 10 Mg/2 Ml Inj IV Q6H PRN Nausea And Vomiting Morphine Sulfate 2 mg 03/03/22 20:28 Morphine 2 Mg/1 Ml Inj IV Q4H PRN Pain, Moderate (4-6) Ondansetron HCl 4 mg 03/03/22 20:28 Ondansetron 4 Mg/2 Ml Inj IV Q8H PRN Nausea And Vomiting Oxycodone/Acetaminophen 1 tab 03/03/22 20:28 03/09/22 12:06 Oxycodone /Acetaminophen 5-325mg Tab PO 1 tab Q6H PRN Administration Pain, Moderate (4-6) Polyethylene Glycol 17 gm 03/06/22 11:00 Polyethylene Glycol 3350 17 Gm Powder PO QDAY PRN Constipation Senna/Docusate Sodium 2 tab 03/06/22 11:00 03/12/22 11:22 Sennosides/Docusate Sodium 8.6/50 Mg Tab PO Not Given Q12H VERN Sildenafil Citrate 20 mg 03/11/22 14:00 03/12/22 13:01 Sildenafil 20 Mg Tab PO 20 mg TID VERN Administration Sodium Chloride 10 ml 03/03/22 22:00 03/12/22 09:05 Sodium Chloride 0.9% 10 Ml Flush Syringe IV 10 ml BID VERN Administration Sodium Chloride 10 ml 03/03/22 20:28 Sodium Chloride 0.9% 10 Ml Flush Syringe IV PRN PRN LINE FLUSH
[2022-03-12] MEDS: guaiFENesin ER 600 MG TAB PO SCH ×2 (17:02→21:53)
[2022-03-12] MEDS: CETIRIZINE 10 MG TAB PO SCH (17:02)
[2022-03-12] MEDS: PANTOPRAZOLE 40 MG TAB PO SCH (17:02)
[2022-03-13] MEDS: methylPREDNISolone Sod Succinate 125 MG/2 ML INJ IV SCH ×4 (00:26→17:55)
[2022-03-13] MEDS: HEPARIN 5,000 UNIT/1 ML VIAL SUB-Q SCH ×4 (06:31→22:30)
[2022-03-13] MEDS: FUROSEMIDE 40 MG/4 ML INJ IV SCH (06:31)
--- NOTE | 2022-03-13 08:18 | Progress Note ---
Assessment and Plan Assessment and plan: #Severe pulmonary arterial hypertension #Acute on chronic hypoxic respiratory failure- worsening - baseline oxygen requirements: 5 L nasal cannula - supplemental oxygen: HFNC @ 20L/min, 90% FIO2; will attempt to wean as tolerated Pulmonology following; assistance appreciated - Continue protocol: continue pulse oximetry, wean oxygen as tolerated, ordered incentive spirometry and educated patient on how to use it and its importance - Unremarkable LE dopplers. V/Q scan low probability for PE - CTA of the chest: intersitial edema and central pulmonary arterial enlargement suggest of PAH - continue IV steroids; may benefit from R + L heart cath for further evaluation - Patient is on sildenafil #Acute on chronic diastolic heart failure #cor pulmonale - Continue CHF exacerbation protocol: Telemetry, Strict I/O, monitor urine output every shift, daily weights, afterload reduction, low-sodium diet, and fluid restriction of approximately 1.5 mL/day - continue PO diuretics - ProBNP on admission: 11,875 - Cardiology following; appreciate recs - TTE (03/04/2022) revealing EF 50-55% with normal-sized LV, lower limits of normal LV systolic function, borderline concentric LVH, severely dilated RV, severely reduced RV systolic function, mildly dilated LA, severely dilated RA, RVSP >95 mmHg, and severe pulmonary hypertension. -Patient is on IV Lasix #ESBL UTI/cystitis without hematuria Urinalysis revealing large leukocyte esterase, WBC 11, 1+ bacteria, few budding yeast. - Macrobid discontinued due to worsening renal function, ertapenem x3 doses started per ID recs Infectious disease following, assistance appreciated Continue precautions #Atypical chest painruled out Negative troponin x2 Likely secondary to volume overload in the setting of acute heart failure. #RIN on CKD stage III SCr 2.4 today Renally dose meds and avoid nephrotoxic drugs Nephrology following; appreciate recs #Mild protein caloric malnutrition Albumin 3.4 Continue dietary supplementation #Morbid obesity #Weight loss counseling #Exercise counseling - BMI 53.1 - Counseled patient on the importance of weight loss, incorporating exercise, an d dietary changes (lean meats, fresh fruits and vegetables, and water intake). Patient expresses understanding. - Time: +15 min #Advanced care planning -Disease education conducted, care plan discussed, diagnoses discussed, prognosis discussed, and patient acknowledges understanding with care plan -Time: +30 min History Interval history: Patient was seen and evaluated this morning Patient was on 30 L of high flow oxygen Hospitalist Physical - Physical exam Narrative exam: GENERAL: Obese woman. Sitting on the bedside commode in no acute distress. HEENT: High flow nasal cannula. CHEST/LUNGS: Prolonged expiratory phase, otherwise CTAB. HEART/CARDIOVASCULAR: RRR. No murmur, rubs or gallops appreciated. ABDOMEN: +BS. NT/ND. NEURO: No focal motor deficit. Follows all commands. MUSCULOSKELETAL: No joint effusion EXTREMITIES: BLE chronic venous stasis changes. No clubbing or edema. PSYCH: Cooperative. - Constitutional Vitals: Temp Pulse Resp BP Pulse Ox 98.1 F 72 19 122/70 93 03/13/22 03:54 03/13/22 07:15 03/13/22 07:15 03/13/22 03:54 03/13/22 07:20 General appearance: Present: mild distress, well-nourished, obese HEART Score - HEART Score Age: > 65 Risk factors: 1-2 risk factors Troponin: Troponin T < 0.010 ng/mL (0.00-0.029) 03/03/22 13:34 Troponin: < normal limit - Critical Actions Critical Actions: 4-6 pts:12-16.6% risk of adverse cardiac event. Should be admitted Results - Labs CBC & Chem 7: 03/08/22 09:44 03/12/22 06:27 Labs: Laboratory Last Values WBC 7.6 K/mm3 (4.5-11.0) 03/08/22 09:44 RBC 4.57 M/mm3 (3.65-5.03) 03/08/22 09:44 Hgb 13.3 gm/dl (10.1-14.3) 03/08/22 09:44 Hct 41.7 % (30.3-42.9) 03/08/22 09:44 MCV 91 fl (79-97) 03/08/22 09:44 MCH 29 pg (28-32) 03/08/22 09:44 MCHC 32 % (30-34) 03/08/22 09:44 RDW 15.9 % (13.2-15.2) H 03/08/22 09:44 Plt Count 207 K/mm3 (140-440) 03/08/22 09:44 Lymph % (Auto) 12.2 % (13.4-35.0) L 03/08/22 09:44 [place] % (Auto) 4.6 % (0.0-7.3) 03/08/22 09:44 Eos % (Auto) 3.0 % (0.0-4.3) 03/08/22 09:44 Baso % (Auto) 0.7 % (0.0-1.8) 03/08/22 09:44 Lymph # (Auto) 0.9 K/mm3 (1.2-5.4) L 03/08/22 09:44 [place] # (Auto) 0.4 K/mm3 (0.0-0.8) 03/08/22 09:44 Eos # (Auto) 0.2 K/mm3 (0.0-0.4) 03/08/22 09:44 Baso # (Auto) 0.1 K/mm3 (0.0-0.1) 03/08/22 09:44 Seg Neutrophils % 79.5 % (40.0-70.0) H 03/08/22 09:44 Seg Neutrophils # 6.0 K/mm3 (1.8-7.7) 03/08/22 09:44 ABG pH 7.316 pH Units (7.350-7.450) L 03/11/22 10:35 ABG pCO2 54.7 mm Hg 03/11/22 10:35 ABG pO2 81.0 mm Hg (80.0-90.0) 03/11/22 10:35 ABG HCO3 27.3 mmol/L (20.0-26.0) H 03/11/22 10:35 ABG O2 Saturation 95.0 % (95.0-99.0) 03/11/22 10:35 ABG O2 Content 18.1 (0.0-44) 03/11/22 10:35 ABG Base Excess 0.2 mmol/L (-2.0-3.0) 03/11/22 10:35 ABG Hemoglobin 13.7 gm/dl (12.0-16.0) 03/11/22 10:35 ABG Carboxyhemoglobin 0.7 % (0.0-5.0) 03/11/22 10:35 ABG Methemoglobin 0.4 % (0.0-1.5) 03/11/22 10:35 Oxyhemoglobin 94.0 % (95.0-99.0) L 03/11/22 10:35 FiO2 90 % 03/11/22 10:35 Sodium 141 mmol/L (137-145) 03/12/22 06:27 Potassium 3.9 mmol/L (3.6-5.0) 03/12/22 06:27 Chloride 101.9 mmol/L (98-107) 03/12/22 06:27 Carbon Dioxide 27 mmol/L (22-30) 03/12/22 06:27 Anion Gap 16 mmol/L 03/12/22 06:27 BUN 113 mg/dL (7-17) H 03/12/22 06:27 Creatinine 2.4 mg/dL (0.6-1.2) H 03/12/22 06:27 Estimated GFR 24 ml/min 03/12/22 06:27 BUN/Creatinine Ratio 47 % 03/12/22 06:27 Glucose 216 mg/dL (65-100) H 03/12/22 06:27 Calcium 8.6 mg/dL (8.4-10.2) 03/12/22 06:27 Total Bilirubin 0.60 mg/dL (0.1-1.2) 03/04/22 02:51 AST 12 units/L (5-40) 03/04/22 02:51 ALT 6 units/L (7-56) L 03/04/22 02:51 Alkaline Phosphatase 91 units/L (35-129) 03/04/22 02:51 Troponin T < 0.010 ng/mL (0.00-0.029) 03/03/22 13:34 NT-Pro-B Natriuret Pep 05515 pg/mL (0-900) H 03/03/22 13:34 Total Protein 8.4 g/dL (6.3-8.2) H 03/04/22 02:51 Albumin 3.4 g/dL (3.9-5) L 03/04/22 02:51 Albumin/Globulin Ratio 0.7 % 03/04/22 02:51 Urine Color Yellow (Yellow) 03/04/22 17:35 Urine Turbidity Slightly-cloudy (Clear) 03/04/22 17:35 Urine pH 6.0 (5.0-7.0) 03/04/22 17:35 Ur Specific [place] 1.008 (1.003-1.030) 03/04/22 17:35 Urine Protein <15 mg/dl mg/dL (Negative) 03/04/22 17:35 Urine Glucose (UA) Neg mg/dL (Negative) 03/04/22 17:35 Urine Ketones Neg mg/dL (Negative) 03/04/22 17:35 Urine Blood Mod (Negative) 03/04/22 17:35 Urine Nitrite Neg (Negative) 03/04/22 17:35 Urine Bilirubin Neg (Negative) 03/04/22 17:35 Urine Urobilinogen < 2.0 mg/dL (<2.0) 03/04/22 17:35 Ur Leukocyte Esterase Lg (Negative) 03/04/22 17:35 Urine WBC (Auto) 11.0 /HPF (0.0-6.0) H 03/04/22 17:35 Urine RBC (Auto) 2.0 /HPF (0.0-6.0) 03/04/22 17:35 U Epithel Cells (Auto) 1.0 /HPF (0-13.0) 03/04/22 17:35 Urine Bacteria (Auto) 1+ /HPF (Negative) 03/04/22 17:35 Urine Mucus Few /HPF 03/04/22 17:35 Urine Yeast (Budding) Few /HPF 03/04/22 17:35 Urine Creatinine 41.2 mg/dL (0.1-20.0) H 03/04/22 17:35 Urine Sodium 126 mmol/L 03/04/22 17:35 Urine Total Protein 16 mg/dL (5-11.8) H 03/04/22 17:35 Coronavirus (PCR) Negative (Negative) 03/04/22 09:57 Gale/IV: Voiding Method External Female Catheter Active Medications - Current Medications Current Medications: Generic Name Dose Route Start Last Admin Trade Name Freq PRN Reason Stop Dose Admin Acetaminophen 650 mg 03/03/22 20:28 03/11/22 17:06 Acetaminophen 325 Mg Tab PO 650 mg Q4H PRN Administration Pain MILD(1-3)/Fever >100.5/HOFFMAN Cetirizine HCl 10 mg 03/12/22 15:00 03/12/22 17:02 Cetirizine 10 Mg Tab PO 10 mg QDAY VERN Administration Furosemide 40 mg 03/10/22 18:00 03/13/22 06:31 Furosemide 40 Mg/4 Ml Inj IV 40 mg 0600,1800 VERN Administration Guaifenesin 600 mg 03/12/22 15:00 03/12/22 21:53 Guaifenesin Er 600 Mg Tab PO 600 mg BID VERN Administration Heparin Sodium (Porcine) 5,000 unit 03/04/22 14:00 03/13/22 06:31 Heparin 5,000 Unit/1 Ml Vial SUB-Q 5,000 unit Q8HR VERN Administration Methylprednisolone Sodium Succinate 60 mg 03/08/22 12:00 03/13/22 06:31 Methylprednisolone Sod Succinate 125 Mg/2 Ml Inj IV 60 mg Q6HR VERN Administration Metoclopramide HCl 5 mg 03/11/22 12:00 Metoclopramide 10 Mg/2 Ml Inj IV Q6H PRN Nausea And Vomiting Morphine Sulfate 2 mg 03/03/22 20:28 Morphine 2 Mg/1 Ml Inj IV Q4H PRN Pain, Moderate (4-6) Ondansetron HCl 4 mg 03/03/22 20:28 Ondansetron 4 Mg/2 Ml Inj IV Q8H PRN Nausea And Vomiting Oxycodone/Acetaminophen 1 tab 03/03/22 20:28 03/09/22 12:06 Oxycodone /Acetaminophen 5-325mg Tab PO 1 tab Q6H PRN Administration Pain, Moderate (4-6) Pantoprazole Sodium 40 mg 03/12/22 15:00 03/12/22 17:02 Pantoprazole 40 Mg Tab PO 40 mg QDAC VERN Administration Polyethylene Glycol 17 gm 03/06/22 11:00 Polyethylene Glycol 3350 17 Gm Powder PO QDAY PRN Constipation Senna/Docusate Sodium 2 tab 03/06/22 11:00 03/12/22 22:00 Sennosides/Docusate Sodium 8.6/50 Mg Tab PO Not Given Q12H VERN Sildenafil Citrate 20 mg 03/11/22 14:00 03/12/22 20:17 Sildenafil 20 Mg Tab PO 20 mg TID VERN Administration Sodium Chloride 10 ml 03/03/22 22:00 03/12/22 21:53 Sodium Chloride 0.9% 10 Ml Flush Syringe IV 10 ml BID VERN Administration Sodium Chloride 10 ml 03/03/22 20:28 Sodium Chloride 0.9% 10 Ml Flush Syringe IV PRN PRN LINE FLUSH Nutrition/Malnutrition Assess - Dietary Evaluation Nutrition/Malnutrition Findings: Nutrition Notes Start: 03/11/22 14:05 Freq: Status: Active Protocol: Document 03/11/22 14:05 RAOUL (Rec: 03/11/22 14:21 RAOUL [id number]) Nutrition Notes Need for Assessment generated from: LOS Initial or Follow up Assessment Current Diagnosis Acute Kidney Injury,CKD(stage I-IV),Respiratory Failure, Malnutrition Other Pertinent Diagnosis HFpEF, Cor Pulmonale, UTI, Cystitis. Current Diet Cardiac -Renal- Diet (from D 03/11). Labs/Tests 03/11: BUN 108, Crea 2.5, Glu 141. Pertinent Medications 03/11: Nutritionally unremarkable. 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 Weight Status Morbidly Obese Subjective/Other Information RD consult for LOS assessment. Pt's PO intake of meals has been Good (>75%) but fairly tolerated, according to ADL notes. I will prescribe renal modification to current diet to support Pt's RIN/CKD condition during LOS. Pt is on High-Flow Nasal Cannula, O2 saturation @ 96%, according to Physical Assessment History notes. Pt presents an > as signs of concern for skin risk at this time, according to Physical Assessment History notes. Percent of energy/protein needs met: Prescribed Cardiac -Renal- Diet provides for energy/ protein needs (2,230 Kcal/85 g ) during LOS. Burn Absent Trauma Absent GI Symptoms None Food Allergy Yes Skin Integrity/Comment Unspecified dryness and flakiness. Current % PO Good (75-100%) Minimum of two criteria No Fluid Accumulation N/A Reduced Voucher Examiner Strength N/A (non-severe) Protein-Calorie Malnutrition N\A #1 Nutrition Diagnosis Altered nutrition-related laboratory values Etiology RIN/CKD III. As Evidenced by Signs and Symptoms 03/11: BUN 108, Crea 2.5. Is patient on ventilator? No Is Patient Ambulatory and/or Out of Bed Yes REE-([place]-St. Jeor-ambulatory/OOB) [ 4716.969 [id number]] Kcal/Kg value to use for calculation 10 Approximate Energy Requirements Using 1347 kcal/Kg Calculation Used for Recommendations Kcal/kg Additional Notes Protein: 0.6-0.8 g/Kg AdjBW; 56-75 g/day. Fluids: 1 ml/Kcal, or as per MD. Nutrition Intervention Change Diet Order: Modify to Cardiac -Renal- Diet . Goal #1 Adjust the dietary intervention to better serve Pt's needs and clinical conditions during LOS. Additional Comments Continue monitoring food tolerance, %PO intake of meals , and BM.
[2022-03-13] MEDS: PANTOPRAZOLE 40 MG TAB PO SCH (08:19)
[2022-03-13] MEDS: SILDENAFIL 20 MG TAB PO SCH ×3 (08:34→20:41)
[2022-03-13] MEDS: CETIRIZINE 10 MG TAB PO SCH (09:33)
[2022-03-13] MEDS: guaiFENesin ER 600 MG TAB PO SCH ×2 (09:33→21:03)
[2022-03-13 11:05] LABS: Calcium 8.6 mg/dL (8.4-10.2)
[2022-03-13] MEDS: SENNOSIDES/DOCUSATE SODIUM 8.6/50 MG TAB PO SCH ×2 (12:14→22:00)
--- NOTE | 2022-03-13 14:22 | Progress Note ---
Assessment and Plan - Patient Problems (1) Interstitial edema Current Visit: Yes Status: Acute Plan to address problem: 71-year-old woman with morbid obesity, obstructive sleep apnea, hypertension, presents with shortness of breath and chest x-ray evidence of mild to moderate interstitial edema. Previous invasive cardiac work-up 10 years ago showed no significant coronary artery disease. Prior left ventricular systolic function assessment was well-preserved at 50%. Echocardiogram on this presentation demonstrates well-preserved left ventricular systolic function. Major finding on the echocardiogram is the presence of severe cor pulmonale with dilated right heart chambers, moderate to severe tricuspid regurgitation and severe pulmonary hypertension with pulmonary artery systolic pressures approaching systemic levels. Chronic lung disease appears to be primary etiology for dyspnea, respiratory insufficiency and hypoxemia. Subjective Date of service: 03/13/22 Principal diagnosis: Hypoxic respiratory failure Interval history: Patient is comfortable, no cardiac complaints, no new cardiac events reported. 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 Objective Vital Signs Temp Pulse Pulse Resp BP Pulse Ox 03/13/22 12:00 96 03/13/22 10:00 69 03/13/22 08:00 69 24 92 03/13/22 07:20 93 03/13/22 07:15 72 19 94 03/13/22 03:54 98.1 F 74 18 122/70 88 03/13/22 02:00 90 21 97 03/13/22 00:00 98.0 F 88 18 140/78 88 03/12/22 22:37 89 22 96 03/12/22 22:00 91 H 03/12/22 21:54 97.8 F 92 H 22 143/74 88 03/12/22 20:00 92 H 18 94 - Physical Examination General: No Apparent Distress HEENT: Positive: PERRL Neck: Positive: neck supple Cardiac: Positive: Reg Rate and Rhythm Lungs: Positive: Decreased Breath Sounds Neuro: Positive: Grossly Intact Abdomen: Positive: Soft Skin: Positive: Clear Extremities: Present: edema (Minimal) - Labs and Meds Comprehensive Metabolic Panel 03/13/22 Range/Units 10:19 Sodium 136 L (137-145) mmol/L Potassium 3.6 (3.6-5.0) mmol/L Chloride 97.3 L (98-107) mmol/L Carbon Dioxide 22 (22-30) mmol/L BUN 121 H (7-17) mg/dL Creatinine 2.4 H (0.6-1.2) mg/dL Glucose 279 H (65-100) mg/dL Calcium 8.6 (8.4-10.2) mg/dL - Imaging and Cardiology EKG: report reviewed (Sinus tachycardia no acute ST-T wave changes)
--- NOTE | 2022-03-13 14:22 | Progress Note ---
Assessment and Plan - Patient Problems (1) Acute kidney injury Current Visit: Yes Status: Acute Plan to address problem: Prerenal azotemia secondary to acute cardiorenal syndrome/diuresis. Kidney indices are a bit worse. Steroids also contributing to the severe azotemia. Follow-up electrolytes and renal function (2) Acute exacerbation of congestive heart failure Current Visit: Yes Status: Acute Qualifiers: Heart failure type: combined systolic and diastolic Qualified Code(s): I50.43 - Acute on chronic combined systolic (congestive) and diastolic (congestive) heart failure Plan to address problem: Cardiology input appreciated. Preserved ejection fraction with severe pulmonary hypertension. CT chest showed cardiomegaly with interstitial edema. Incomplete records of intake/output. Continue IV diuretics but decrease Lasix to once daily in the morning. Discussed with the patient about possible need for dialysis. Hopefully kidney function stabilizes. (3) Acute respiratory failure with hypoxia Current Visit: Yes Status: Acute Plan to address problem: Multifactorial. 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 Will be cautious with diuresis. Follow-up electrolytes and renal function (5) Hypertensive chronic kidney disease with stage 1 through stage 4 chronic kidney disease, or unspecified chronic kidney disease Current Visit: Yes Status: Acute Plan to address problem: Follow-up blood pressure on current medications. (6) Urinary tract infection Current Visit: Yes Status: Acute Plan to address problem: ESBL urinary tract infection on ertapenem per Infectious disease (7) GERD (gastroesophageal reflux disease) Current Visit: Yes Status: Acute Plan to address problem: Continue omeprazole which she was taking at home. (8) Sinusitis Current Visit: Yes Status: Acute Plan to address problem: Continue Mucinex and Claritin. Subjective Date of service: 03/13/22 Principal diagnosis: Hypoxic respiratory failure Interval history: Patient seen lying in bed. No shortness of breath at rest but on mild exertion. No new complaints. Just a bit sleepy. On oxygen by high flow nasal cannula. No nausea or vomiting Objective - Exam Narrative Exam: Morbidly elderly -[place] female lying in bed on oxygen via high flow nasal cannula HEENT: NCAT, pink conjunctiva Neck: Supple, no venous distention CVS: S1S2 RRR with no murmur, rub or gallop Chest: Clear to auscultation but breath sounds diminished Abdomen: Obese, soft, nontender, no organomegaly, bowel sounds are present Extremities: No edema Genitourinary deferred Skin warm and dry with hyperpigmentation in both legs and feet Neuro: Awake, alert no focal deficits - Vital Signs Vital signs: Vital Signs - 12hr 03/13/22 03/13/22 03/13/22 03:54 07:15 07:20 Temperature 98.1 F Pulse Rate 74 72 Pulse Rate [ Radial] Respiratory 18 19 Rate Blood Pressure 122/70 [Left] O2 Sat by Pulse 88 94 93 Oximetry 03/13/22 03/13/22 03/13/22 08:00 10:00 12:00 Temperature Pulse Rate 69 Pulse Rate [ 69 Radial] Respiratory 24 Rate Blood Pressure [Left] O2 Sat by Pulse 92 96 Oximetry - Lab 03/08/22 09:44 03/13/22 10:19 Most recent lab results ABG pH 7.316 pH Units (7.350-7.450) L 03/11/22 10:35 ABG pCO2 54.7 mm Hg 03/11/22 10:35 ABG pO2 81.0 mm Hg (80.0-90.0) 03/11/22 10:35 ABG HCO3 27.3 mmol/L (20.0-26.0) H 03/11/22 10:35 ABG O2 Saturation 95.0 % (95.0-99.0) 03/11/22 10:35 Calcium 8.6 mg/dL (8.4-10.2) 03/13/22 10:19 Urine Creatinine 41.2 mg/dL (0.1-20.0) H 03/04/22 17:35 Urine Sodium 126 mmol/L 03/04/22 17:35 Urine Total Protein 16 mg/dL (5-11.8) H 03/04/22 17:35 Medications & Allergies - Medications Allergies/Adverse Reactions: Allergies iodine Allergy (Verified 03/03/22 12:49) Anaphylaxis Penicillins Allergy (Verified 03/03/22 12:49) Anaphylaxis shellfish derived Allergy (Verified 03/03/22 12:49) Anaphylaxis Home Medications: Home Medications Medication Instructions Recorded Confirmed Last Taken Type Acetaminophen [Non-Aspirin Extra 500 mg PO Q8HR PRN 03/04/22 03/04/22 03/01/22 History Strength] Aspirin EC 325 mg PO 4XW 03/04/22 03/04/22 03/02/22 History Hydrocodone-Acetamin 2.5-325 5 - 325 mg PO Q6HR PRN 03/04/22 03/04/22 03/02/22 History Mucus Relief ER 600 mg PO BID 03/04/22 03/05/22 03/02/22 History Omeprazole 40 mg PO DAILY 03/04/22 03/05/22 03/02/22 History Phenazopyridine 200 mg PO TID 03/04/22 03/04/22 03/03/22 History Senna Plus Tablet 8.6 - 50 mg PO BID MDD CONSTIPATION 03/04/22 03/05/22 03/02/22 History Diclofenac Sodium ER 75 mg PO Q8HR 03/05/22 03/05/22 03/02/22 History Nifedipine ER 60 mg PO DAILY 03/05/22 03/05/22 03/02/22 History Vitamin D3 25 mg PO DAILY 03/05/22 03/05/22 03/02/22 History Active Medications: Generic Name Dose Route Start Last Admin Trade Name Freq PRN Reason Stop Dose Admin Acetaminophen 650 mg 03/03/22 20:28 03/11/22 17:06 Acetaminophen 325 Mg Tab PO 650 mg Q4H PRN Administration Pain MILD(1-3)/Fever >100.5/HOFFMAN Cetirizine HCl 10 mg 03/12/22 15:00 03/13/22 09:33 Cetirizine 10 Mg Tab PO 10 mg QDAY VERN Administration Furosemide 40 mg 03/14/22 10:00 Furosemide 40 Mg/4 Ml Inj IV DAILY VERN Guaifenesin 600 mg 03/12/22 15:00 03/13/22 09:33 Guaifenesin Er 600 Mg Tab PO 600 mg BID VERN Administration Heparin Sodium (Porcine) 5,000 unit 03/04/22 14:00 03/13/22 13:16 Heparin 5,000 Unit/1 Ml Vial SUB-Q 5,000 unit Q8HR VERN Administration Methylprednisolone Sodium Succinate 60 mg 03/08/22 12:00 03/13/22 12:20 Methylprednisolone Sod Succinate 125 Mg/2 Ml Inj IV 60 mg Q6HR VERN Administration Metoclopramide HCl 5 mg 03/11/22 12:00 Metoclopramide 10 Mg/2 Ml Inj IV Q6H PRN Nausea And Vomiting Morphine Sulfate 2 mg 03/03/22 20:28 Morphine 2 Mg/1 Ml Inj IV Q4H PRN Pain, Moderate (4-6) Ondansetron HCl 4 mg 03/03/22 20:28 Ondansetron 4 Mg/2 Ml Inj IV Q8H PRN Nausea And Vomiting Oxycodone/Acetaminophen 1 tab 03/03/22 20:28 03/09/22 12:06 Oxycodone /Acetaminophen 5-325mg Tab PO 1 tab Q6H PRN Administration Pain, Moderate (4-6) Pantoprazole Sodium 40 mg 03/12/22 15:00 03/13/22 08:19 Pantoprazole 40 Mg Tab PO 40 mg QDAC VERN Administration Polyethylene Glycol 17 gm 03/06/22 11:00 Polyethylene Glycol 3350 17 Gm Powder PO QDAY PRN Constipation Senna/Docusate Sodium 2 tab 03/06/22 11:00 03/13/22 12:14 Sennosides/Docusate Sodium 8.6/50 Mg Tab PO Not Given Q12H VERN Sildenafil Citrate 20 mg 03/11/22 14:00 03/13/22 13:16 Sildenafil 20 Mg Tab PO 20 mg TID VERN Administration Sodium Chloride 10 ml 03/03/22 22:00 03/13/22 09:35 Sodium Chloride 0.9% 10 Ml Flush Syringe IV 10 ml BID VERN Administration Sodium Chloride 10 ml 03/03/22 20:28 Sodium Chloride 0.9% 10 Ml Flush Syringe IV PRN PRN LINE FLUSH
--- NOTE | 2022-03-13 17:22 | Progress Note ---
Assessment and Plan Imp: 1. A/C respiratory failure, hypoxia 2. Morbid obesity 3. A/C diastolic CHF 4. Pulm HTN 5. ELISEO 6. OHS 7. UTI 8. RIN on CKD Rec: 1. ABG demonstrates mild CO2 retention c/w OHS 2. Prior office Spirometry x 2 was negative for COPD and there is no parenchymal lung process on CT Chest that would explain the severe pulm HTN; V/Q is negative for CTEPH; suspect some degree of diastolic dysfunction so cont. Lasix IV, but there may very well be a WHO group 1 component to her pulmonary HTN; optimally she should have a RHC but currently is a suboptimal candidate for the same; will give her a trial of Sildenafil 20mg TID 3. Wean O2 to keep sats 88-94% 4. Weight loss 5. Repeat outpatient PFTs 6. Cont. BIPAP QHS 7. Add back PPI daily and Flonase daily 8. Complex decision-making Plan of care reviewed w/ patient she understands/agrees Subjective Date of service: 03/12/22 Principal diagnosis: Hypoxic respiratory failure Interval history: F/u Pulm HTN S: No events. On HFNC 25LPM and 50% FiO2. SOB is a little better. Needs GERD medication (on Omeprazole at home). C/o nasal congestion. Objective Vital Signs - 12hr 03/13/22 03/13/22 03/13/22 07:15 07:20 08:00 Pulse Rate 72 Pulse Rate [ 69 Radial] Respiratory 19 24 Rate O2 Sat by Pulse 94 93 92 Oximetry 03/13/22 03/13/22 03/13/22 10:00 12:00 14:00 Pulse Rate 69 Pulse Rate [ Radial] Respiratory Rate O2 Sat by Pulse 96 94 Oximetry Constitutional: no acute distress, alert, other (obese) Eyes: non-icteric ENT: oropharynx moist Neck: supple, other (obese) Effort: mildly labored Ascultation: Bilateral: diminished breath sounds Cardiovascular: regular rate and rhythm (no mrg) Gastrointestinal: normoactive bowel sounds, soft, non-tender, non-distended Integumentary: normal Extremities: no cyanosis, no edema, pink and warm Neurologic: normal mental status, non-focal exam, pupils equal and round Psychiatric: mood appropriate, affect normal CBC and BMP: 03/08/22 09:44 03/13/22 10:19 ABG, PT/INR, D-dimer: ABG ABG pH 7.316 pH Units (7.350-7.450) L 03/11/22 10:35 ABG pCO2 54.7 mm Hg 03/11/22 10:35 ABG pO2 81.0 mm Hg (80.0-90.0) 03/11/22 10:35 ABG O2 Saturation 95.0 % (95.0-99.0) 03/11/22 10:35 Abnormal lab findings: Abnormal Labs 03/03/22 03/03/22 03/03/22 13:34 13:34 13:34 RDW 16.1 H Lymph % (Auto) 9.7 L Lymph # (Auto) 0.8 L Seg Neutrophils % 84.6 H ABG pH ABG HCO3 Oxyhemoglobin Sodium Potassium Chloride BUN 47 H Creatinine 1.7 H Glucose 101 H ALT NT-Pro-B Natriuret Pep 58560 H Total Protein 9.1 H Albumin 3.5 L Urine WBC (Auto) Urine Creatinine Urine Total Protein 03/04/22 03/04/22 03/04/22 02:51 03:05 17:35 RDW 16.0 H Lymph % (Auto) 8.9 L Lymph # (Auto) 0.8 L Seg Neutrophils % 84.1 H ABG pH ABG HCO3 Oxyhemoglobin Sodium Potassium Chloride BUN 46 H Creatinine 1.8 H Glucose 119 H ALT 6 L NT-Pro-B Natriuret Pep Total Protein 8.4 H Albumin 3.4 L Urine WBC (Auto) 11.0 H Urine Creatinine Urine Total Protein 03/04/22 03/05/22 03/05/22 17:35 12:08 15:18 RDW Lymph % (Auto) Lymph # (Auto) Seg Neutrophils % ABG pH ABG HCO3 Oxyhemoglobin Sodium Potassium 6.4 H* D Chloride BUN 55 H 55 H Creatinine 2.0 H 2.0 H Glucose 120 H 116 H ALT NT-Pro-B Natriuret Pep Total Protein Albumin Urine WBC (Auto) Urine Creatinine 41.2 H Urine Total Protein 16 H 03/06/22 03/08/22 03/08/22 05:25 09:44 09:44 RDW 15.9 H Lymph % (Auto) 12.2 L Lymph # (Auto) 0.9 L Seg Neutrophils % 79.5 H ABG pH ABG HCO3 Oxyhemoglobin Sodium Potassium Chloride BUN 58 H 69 H Creatinine 2.1 H 2.3 H Glucose 103 H ALT NT-Pro-B Natriuret Pep Total Protein Albumin Urine WBC (Auto) Urine Creatinine Urine Total Protein 03/08/22 03/09/22 03/10/22 14:36 05:43 07:16 RDW Lymph % (Auto) Lymph # (Auto) Seg Neutrophils % ABG pH ABG HCO3 Oxyhemoglobin Sodium Potassium 5.3 H D Chloride BUN 70 H 82 H 95 H Creatinine 2.4 H 2.5 H 2.3 H Glucose 125 H 149 H 141 H ALT NT-Pro-B Natriuret Pep Total Protein Albumin Urine WBC (Auto) Urine Creatinine Urine Total Protein 03/11/22 03/11/22 03/12/22 06:44 10:35 06:27 RDW Lymph % (Auto) Lymph # (Auto) Seg Neutrophils % ABG pH 7.316 L ABG HCO3 27.3 H Oxyhemoglobin 94.0 L Sodium Potassium Chloride BUN 108 H 113 H Creatinine 2.5 H 2.4 H Glucose 141 H 216 H ALT NT-Pro-B Natriuret Pep Total Protein Albumin Urine WBC (Auto) Urine Creatinine Urine Total Protein 03/13/22 10:19 RDW Lymph % (Auto) Lymph # (Auto) Seg Neutrophils % ABG pH ABG HCO3 Oxyhemoglobin Sodium 136 L Potassium Chloride 97.3 L BUN 121 H Creatinine 2.4 H Glucose 279 H ALT NT-Pro-B Natriuret Pep Total Protein Albumin Urine WBC (Auto) Urine Creatinine Urine Total Protein Chest x-ray: report reviewed, image reviewed CT scan - chest: report reviewed, image reviewed
--- NOTE | 2022-03-13 23:34 | Progress Note ---
Assessment and Plan Imp: 1. A/C respiratory failure, hypoxia 2. Morbid obesity 3. A/C diastolic CHF 4. Pulm HTN 5. ELISEO 6. OHS 7. UTI 8. RIN on CKD Rec: 1. ABG demonstrates mild CO2 retention c/w OHS 2. Prior office Spirometry x 2 was negative for COPD and there is no parenchymal lung process on CT Chest that would explain the severe pulm HTN; V/Q is negative for CTEPH; suspect some degree of diastolic dysfunction so cont. Lasix IV, but there may very well be a WHO group 1 component to her pulmonary HTN; optimally she should have a RHC but currently is a suboptimal candidate for the same; will give her a trial of Sildenafil 20mg TID 3. Wean O2 to keep sats 88-94% 4. Weight loss 5. Repeat outpatient PFTs 6. Cont. BIPAP QHS 7. Added back PPI daily and Flonase daily 8. Complex decision-making Plan of care reviewed w/ patient she understands/agrees Subjective Date of service: 03/13/22 Principal diagnosis: Hypoxic respiratory failure Interval history: F/u Pulm HTN S: No events. On HFNC. SOB is a little better. No new complaints. Active Medications Acetaminophen (Acetaminophen 325 Mg Tab) 650 mg PO Q4H PRN PRN Reason: Pain MILD(1-3)/Fever >100.5/HOFFMAN Last Admin: 03/11/22 17:06 Dose: 650 mg Cetirizine HCl (Cetirizine 10 Mg Tab) 10 mg PO QDAY [facility] Last Admin: 03/13/22 09:33 Dose: 10 mg Fluticasone Propionate (Fluticasone Propionate Nasal [place] 16 Gm) 200 mcg NS QDAY [facility] Furosemide (Furosemide 40 Mg/4 Ml Inj) 40 mg IV DAILY [facility] Guaifenesin (Guaifenesin Er 600 Mg Tab) 600 mg PO BID [facility] Last Admin: 03/13/22 21:03 Dose: 600 mg Heparin Sodium (Porcine) (Heparin 5,000 Unit/1 Ml Vial) 5,000 unit SUB-Q Q8HR [facility] Last Admin: 03/13/22 21:02 Dose: 5,000 unit Methylprednisolone Sodium Succinate (Methylprednisolone Sod Succinate 125 Mg/2 Ml Inj) 60 mg IV Q6HR [facility] Last Admin: 03/13/22 17:55 Dose: 60 mg Metoclopramide HCl (Metoclopramide 10 Mg/2 Ml Inj) 5 mg IV Q6H PRN PRN Reason: Nausea And Vomiting Morphine Sulfate (Morphine 2 Mg/1 Ml Inj) 2 mg IV Q4H PRN PRN Reason: Pain, Moderate (4-6) Ondansetron HCl (Ondansetron 4 Mg/2 Ml Inj) 4 mg IV Q8H PRN PRN Reason: Nausea And Vomiting Oxycodone/Acetaminophen (Oxycodone /Acetaminophen 5-325mg Tab) 1 tab PO Q6H PRN PRN Reason: Pain, Moderate (4-6) Last Admin: 03/09/22 12:06 Dose: 1 tab Pantoprazole Sodium (Pantoprazole 40 Mg Tab) 40 mg PO QDAC [facility] Last Admin: 03/13/22 08:19 Dose: 40 mg Polyethylene Glycol (Polyethylene Glycol 3350 17 Gm Powder) 17 gm PO QDAY PRN PRN Reason: Constipation Senna/Docusate Sodium (Sennosides/Docusate Sodium 8.6/50 Mg Tab) 2 tab PO Q12H [facility] Last Admin: 03/13/22 22:00 Dose: 2 tab Sildenafil Citrate (Sildenafil 20 Mg Tab) 20 mg PO TID [facility] Last Admin: 03/13/22 20:41 Dose: 20 mg Sodium Chloride (Sodium Chloride 0.9% 10 Ml Flush Syringe) 10 ml IV BID [facility] Last Admin: 03/13/22 21:03 Dose: 10 ml Sodium Chloride (Sodium Chloride 0.9% 10 Ml Flush Syringe) 10 ml IV PRN PRN PRN Reason: LINE FLUSH Objective Vital Signs - 12hr 03/13/22 03/13/22 03/13/22 12:00 14:00 17:20 Temperature 98.1 F Pulse Rate 90 Pulse Rate [ Radial] Respiratory 18 Rate Blood Pressure 119/74 O2 Sat by Pulse 96 94 93 Oximetry 03/13/22 03/13/22 03/13/22 18:41 20:00 20:50 Temperature 97.5 F L Pulse Rate 99 H Pulse Rate [ 69 Radial] Respiratory 24 20 Rate Blood Pressure 140/80 O2 Sat by Pulse 92 92 93 Oximetry 03/13/22 22:00 Temperature Pulse Rate 97 H Pulse Rate [ Radial] Respiratory Rate Blood Pressure O2 Sat by Pulse Oximetry Constitutional: no acute distress, alert, other (obese) Eyes: non-icteric ENT: oropharynx moist Neck: supple, other (obese) Effort: mildly labored Ascultation: Bilateral: diminished breath sounds, rales Percussion: Bilateral: not dull Cardiovascular: regular rate and rhythm (no mrg) Gastrointestinal: normoactive bowel sounds, soft, non-tender, non-distended Integumentary: normal Extremities: no cyanosis, no edema, pink and warm Neurologic: normal mental status, non-focal exam, pupils equal and round Psychiatric: mood appropriate, affect normal CBC and BMP: 03/08/22 09:44 03/13/22 10:19 ABG, PT/INR, D-dimer: ABG ABG pH 7.316 pH Units (7.350-7.450) L 03/11/22 10:35 ABG pCO2 54.7 mm Hg 03/11/22 10:35 ABG pO2 81.0 mm Hg (80.0-90.0) 03/11/22 10:35 ABG O2 Saturation 95.0 % (95.0-99.0) 03/11/22 10:35 Abnormal lab findings: Abnormal Labs 03/03/22 03/03/22 03/03/22 13:34 13:34 13:34 RDW 16.1 H Lymph % (Auto) 9.7 L Lymph # (Auto) 0.8 L Seg Neutrophils % 84.6 H ABG pH ABG HCO3 Oxyhemoglobin Sodium Potassium Chloride BUN 47 H Creatinine 1.7 H Glucose 101 H ALT NT-Pro-B Natriuret Pep 50284 H Total Protein 9.1 H Albumin 3.5 L Urine WBC (Auto) Urine Creatinine Urine Total Protein 03/04/22 03/04/22 03/04/22 02:51 03:05 17:35 RDW 16.0 H Lymph % (Auto) 8.9 L Lymph # (Auto) 0.8 L Seg Neutrophils % 84.1 H ABG pH ABG HCO3 Oxyhemoglobin Sodium Potassium Chloride BUN 46 H Creatinine 1.8 H Glucose 119 H ALT 6 L NT-Pro-B Natriuret Pep Total Protein 8.4 H Albumin 3.4 L Urine WBC (Auto) 11.0 H Urine Creatinine Urine Total Protein 03/04/22 03/05/22 03/05/22 17:35 12:08 15:18 RDW Lymph % (Auto) Lymph # (Auto) Seg Neutrophils % ABG pH ABG HCO3 Oxyhemoglobin Sodium Potassium 6.4 H* D Chloride BUN 55 H 55 H Creatinine 2.0 H 2.0 H Glucose 120 H 116 H ALT NT-Pro-B Natriuret Pep Total Protein Albumin Urine WBC (Auto) Urine Creatinine 41.2 H Urine Total Protein 16 H 03/06/22 03/08/22 03/08/22 05:25 09:44 09:44 RDW 15.9 H Lymph % (Auto) 12.2 L Lymph # (Auto) 0.9 L Seg Neutrophils % 79.5 H ABG pH ABG HCO3 Oxyhemoglobin Sodium Potassium Chloride BUN 58 H 69 H Creatinine 2.1 H 2.3 H Glucose 103 H ALT NT-Pro-B Natriuret Pep Total Protein Albumin Urine WBC (Auto) Urine Creatinine Urine Total Protein 03/08/22 03/09/22 03/10/22 14:36 05:43 07:16 RDW Lymph % (Auto) Lymph # (Auto) Seg Neutrophils % ABG pH ABG HCO3 Oxyhemoglobin Sodium Potassium 5.3 H D Chloride BUN 70 H 82 H 95 H Creatinine 2.4 H 2.5 H 2.3 H Glucose 125 H 149 H 141 H ALT NT-Pro-B Natriuret Pep Total Protein Albumin Urine WBC (Auto) Urine Creatinine Urine Total Protein 03/11/22 03/11/22 03/12/22 06:44 10:35 06:27 RDW Lymph % (Auto) Lymph # (Auto) Seg Neutrophils % ABG pH 7.316 L ABG HCO3 27.3 H Oxyhemoglobin 94.0 L Sodium Potassium Chloride BUN 108 H 113 H Creatinine 2.5 H 2.4 H Glucose 141 H 216 H ALT NT-Pro-B Natriuret Pep Total Protein Albumin Urine WBC (Auto) Urine Creatinine Urine Total Protein 03/13/22 10:19 RDW Lymph % (Auto) Lymph # (Auto) Seg Neutrophils % ABG pH ABG HCO3 Oxyhemoglobin Sodium 136 L Potassium Chloride 97.3 L BUN 121 H Creatinine 2.4 H Glucose 279 H ALT NT-Pro-B Natriuret Pep Total Protein Albumin Urine WBC (Auto) Urine Creatinine Urine Total Protein Chest x-ray: report reviewed, image reviewed
[2022-03-14] MEDS: FLUTICASONE PROPIONATE NASAL SPRAY 16 GM NS SCH ×2 (00:13→09:55)
[2022-03-14] MEDS: methylPREDNISolone Sod Succinate 125 MG/2 ML INJ IV SCH ×4 (00:14→17:52)
--- NOTE | 2022-03-14 08:11 | Progress Note ---
Assessment and Plan - Patient Problems (1) Obesity hypoventilation syndrome Current Visit: Yes Status: Acute (2) Obesity Current Visit: Yes Status: Acute (3) Acute exacerbation of congestive heart failure Current Visit: Yes Status: Acute Qualifiers: Heart failure type: combined systolic and diastolic Qualified Code(s): I50.43 - Acute on chronic combined systolic (congestive) and diastolic (congestive) heart failure (4) Acute kidney injury Current Visit: Yes Status: Acute (5) Acute respiratory failure with hypoxia Current Visit: Yes Status: Acute (6) CHF exacerbation Current Visit: Yes Status: Acute (7) Chronic kidney disease, stage 3b Current Visit: Yes Status: Acute Subjective Principal diagnosis: Hypoxic respiratory failure Interval history: awake, on bipap 50% Objective Vital Signs - 12hr 03/13/22 03/13/22 03/13/22 20:45 20:50 22:00 Temperature 97.5 F L Pulse Rate 99 H 97 H Respiratory 20 Rate Blood Pressure 140/80 O2 Sat by Pulse 95 93 Oximetry 03/13/22 03/13/22 03/14/22 23:15 23:48 01:09 Temperature 98.3 F Pulse Rate 83 85 Respiratory 24 20 Rate Blood Pressure 126/69 126/69 O2 Sat by Pulse 97 90 97 Oximetry 03/14/22 03:51 Temperature 98.1 F Pulse Rate 73 Respiratory 19 Rate Blood Pressure 130/66 O2 Sat by Pulse 95 Oximetry Constitutional: no acute distress, alert, other (obese) Eyes: non-icteric ENT: oropharynx moist Neck: supple, other (obese) Effort: mildly labored Ascultation: Bilateral: diminished breath sounds Percussion: Bilateral: not dull Cardiovascular: regular rate and rhythm (no mrg) Gastrointestinal: normoactive bowel sounds, soft, non-tender, non-distended Integumentary: normal Extremities: no cyanosis, no edema, pink and warm Neurologic: normal mental status, non-focal exam, pupils equal and round Psychiatric: mood appropriate, affect normal CBC and BMP: 03/08/22 09:44 03/13/22 10:19 ABG, PT/INR, D-dimer: ABG ABG pH 7.316 pH Units (7.350-7.450) L 03/11/22 10:35 ABG pCO2 54.7 mm Hg 03/11/22 10:35 ABG pO2 81.0 mm Hg (80.0-90.0) 03/11/22 10:35 ABG O2 Saturation 95.0 % (95.0-99.0) 03/11/22 10:35 Abnormal lab findings: Abnormal Labs 03/03/22 03/03/22 03/03/22 13:34 13:34 13:34 RDW 16.1 H Lymph % (Auto) 9.7 L Lymph # (Auto) 0.8 L Seg Neutrophils % 84.6 H ABG pH ABG HCO3 Oxyhemoglobin Sodium Potassium Chloride BUN 47 H Creatinine 1.7 H Glucose 101 H ALT NT-Pro-B Natriuret Pep 54345 H Total Protein 9.1 H Albumin 3.5 L Urine WBC (Auto) Urine Creatinine Urine Total Protein 03/04/22 03/04/22 03/04/22 02:51 03:05 17:35 RDW 16.0 H Lymph % (Auto) 8.9 L Lymph # (Auto) 0.8 L Seg Neutrophils % 84.1 H ABG pH ABG HCO3 Oxyhemoglobin Sodium Potassium Chloride BUN 46 H Creatinine 1.8 H Glucose 119 H ALT 6 L NT-Pro-B Natriuret Pep Total Protein 8.4 H Albumin 3.4 L Urine WBC (Auto) 11.0 H Urine Creatinine Urine Total Protein 03/04/22 03/05/22 03/05/22 17:35 12:08 15:18 RDW Lymph % (Auto) Lymph # (Auto) Seg Neutrophils % ABG pH ABG HCO3 Oxyhemoglobin Sodium Potassium 6.4 H* D Chloride BUN 55 H 55 H Creatinine 2.0 H 2.0 H Glucose 120 H 116 H ALT NT-Pro-B Natriuret Pep Total Protein Albumin Urine WBC (Auto) Urine Creatinine 41.2 H Urine Total Protein 16 H 03/06/22 03/08/22 03/08/22 05:25 09:44 09:44 RDW 15.9 H Lymph % (Auto) 12.2 L Lymph # (Auto) 0.9 L Seg Neutrophils % 79.5 H ABG pH ABG HCO3 Oxyhemoglobin Sodium Potassium Chloride BUN 58 H 69 H Creatinine 2.1 H 2.3 H Glucose 103 H ALT NT-Pro-B Natriuret Pep Total Protein Albumin Urine WBC (Auto) Urine Creatinine Urine Total Protein 07/03/09/22 03/10/22 14:36 05:43 07:16 RDW Lymph % (Auto) Lymph # (Auto) Seg Neutrophils % ABG pH ABG HCO3 Oxyhemoglobin Sodium Potassium 5.3 H D Chloride BUN 70 H 82 H 95 H Creatinine 2.4 H 2.5 H 2.3 H Glucose 125 H 149 H 141 H ALT NT-Pro-B Natriuret Pep Total Protein Albumin Urine WBC (Auto) Urine Creatinine Urine Total Protein 03/11/22 03/11/22 03/12/22 06:44 10:35 06:27 RDW Lymph % (Auto) Lymph # (Auto) Seg Neutrophils % ABG pH 7.316 L ABG HCO3 27.3 H Oxyhemoglobin 94.0 L Sodium Potassium Chloride BUN 108 H 113 H Creatinine 2.5 H 2.4 H Glucose 141 H 216 H ALT NT-Pro-B Natriuret Pep Total Protein Albumin Urine WBC (Auto) Urine Creatinine Urine Total Protein 03/13/22 10:19 RDW Lymph % (Auto) Lymph # (Auto) Seg Neutrophils % ABG pH ABG HCO3 Oxyhemoglobin Sodium 136 L Potassium Chloride 97.3 L BUN 121 H Creatinine 2.4 H Glucose 279 H ALT NT-Pro-B Natriuret Pep Total Protein Albumin Urine WBC (Auto) Urine Creatinine Urine Total Protein CT scan - chest: report reviewed, image reviewed
[2022-03-14] MEDS: CETIRIZINE 10 MG TAB PO SCH (09:55)
[2022-03-14] MEDS: FUROSEMIDE 40 MG/4 ML INJ IV SCH (09:55)
[2022-03-14] MEDS: PANTOPRAZOLE 40 MG TAB PO SCH (09:56)
[2022-03-14] MEDS: ACETAMINOPHEN 325 MG TAB PO PRN (09:56)
[2022-03-14] MEDS: HEPARIN 5,000 UNIT/1 ML VIAL SUB-Q SCH ×2 (09:56→13:39)
[2022-03-14] MEDS: SILDENAFIL 20 MG TAB PO SCH ×3 (09:56→21:07)
[2022-03-14] MEDS: guaiFENesin ER 600 MG TAB PO SCH ×2 (10:02→21:07)
[2022-03-14 10:10] LABS: Calcium 8.9 mg/dL (8.4-10.2)
[2022-03-14] MEDS: SENNOSIDES/DOCUSATE SODIUM 8.6/50 MG TAB PO SCH ×2 (13:40→23:10)
--- NOTE | 2022-03-14 13:57 | Progress Note ---
Assessment and Plan Assessment and plan: #Severe pulmonary arterial hypertension #Acute on chronic hypoxic respiratory failure- worsening - baseline oxygen requirements: 5 L nasal cannula - supplemental oxygen: BiPAP 30/60; will attempt to wean as tolerated Pulmonology following; assistance appreciated - Continue protocol: continue pulse oximetry, wean oxygen as tolerated, ordered incentive spirometry and educated patient on how to use it and its importance - Unremarkable LE dopplers. V/Q scan low probability for PE - CTA of the chest: intersitial edema and central pulmonary arterial enlargement suggest of PAH - continue IV steroids; may benefit from R + L heart cath for further evaluation - Patient is on sildenafil #Acute on chronic diastolic heart failure #cor pulmonale - Continue CHF exacerbation protocol: Telemetry, Strict I/O, monitor urine output every shift, daily weights, afterload reduction, low-sodium diet, and fluid restriction of approximately 1.5 mL/day - continue PO diuretics - ProBNP on admission: 11,875 - Cardiology following; appreciate recs - TTE (03/04/2022) revealing EF 50-55% with normal-sized LV, lower limits of normal LV systolic function, borderline concentric LVH, severely dilated RV, severely reduced RV systolic function, mildly dilated LA, severely dilated RA, RVSP >95 mmHg, and severe pulmonary hypertension. -Patient is on IV Lasix 40 mg daily #ESBL UTI/cystitis without hematuriaresolved Urinalysis revealing large leukocyte esterase, WBC 11, 1+ bacteria, few budding yeast. - Macrobid discontinued due to worsening renal function, ertapenem x3 doses started per ID recs Infectious disease following, assistance appreciated Continue precautions #Atypical chest painruled out Negative troponin x2 Likely secondary to volume overload in the setting of acute heart failure. #RIN on CKD stage III SCr 2.4 today Renally dose meds and avoid nephrotoxic drugs Nephrology following; appreciate recs #Mild protein caloric malnutrition Albumin 3.4 Continue dietary supplementation #Morbid obesity #Weight loss counseling #Exercise counseling - BMI 53.1 - Counseled patient on the importance of weight loss, incorporating exercise, and dietary changes (lean meats, fresh fruits and vegetables, and water intake). Patient expresses understanding. - Time: +15 min Critical Care Billing: The high probability of a clinically significant, sudden or life threatening deterioration of the [respiratory] system(s) required my full and direct attention, intervention and personal management. The aggregate critical care time was [60] minutes. This time is in addition to time spent performing reported procedures but includes the following: [x] Data Review and interpretation [x] Patient assessment and monitoring of vital signs [x] Documentation [x] Medication orders and management Disposition Plan: Continue medical management Total Time Spent with Patient (Minutes): 45 minutes History Interval history: No acute events overnight. Hospitalist Physical - Constitutional Vitals: Temp Pulse Resp BP Pulse Ox 98.1 F 73 19 130/66 94 03/14/22 03:51 03/14/22 03:51 03/14/22 03:51 03/14/22 03:51 03/14/22 08:00 General appearance: Present: mild distress, well-nourished, obese - EENT Eyes: Present: PERRL, EOM intact ENT: hearing intact, clear oral mucosa - Neck Neck: Present: supple, normal ROM - Respiratory Respiratory effort: normal Respiratory: bilateral: diminished (On BiPAP 30/60) - Cardiovascular Rhythm: regular Heart Sounds: Present: S1 & S2 - Extremities Extremities: no ischemia, pulses intact, pulses symmetrical, No edema, normal temperature, normal color Peripheral Pulses: within normal limits - Abdominal General gastrointestinal: soft, non-tender, non-distended, normal bowel sounds - Integumentary Integumentary: Present: clear, warm, dry - Psychiatric Psychiatric: appropriate mood/affect, intact judgment & insight, cooperative - Neurologic Neurologic: CNII-XII intact - Allied Health Allied health notes reviewed: nursing HEART Score - HEART Score Age: > 65 Risk factors: 1-2 risk factors Troponin: Troponin T < 0.010 ng/mL (0.00-0.029) 03/03/22 13:34 Troponin: < normal limit - Critical Actions Critical Actions: 4-6 pts:12-16.6% risk of adverse cardiac event. Should be admitted Results - Labs CBC & Chem 7: 03/08/22 09:44 03/14/22 09:26 Labs: Laboratory Last Values WBC 7.6 K/mm3 (4.5-11.0) 03/08/22 09:44 RBC 4.57 M/mm3 (3.65-5.03) 03/08/22 09:44 Hgb 13.3 gm/dl (10.1-14.3) 03/08/22 09:44 Hct 41.7 % (30.3-42.9) 03/08/22 09:44 MCV 91 fl (79-97) 03/08/22 09:44 MCH 29 pg (28-32) 03/08/22 09:44 MCHC 32 % (30-34) 03/08/22 09:44 RDW 15.9 % (13.2-15.2) H 03/08/22 09:44 Plt Count 207 K/mm3 (140-440) 03/08/22 09:44 Lymph % (Auto) 12.2 % (13.4-35.0) L 03/08/22 09:44 [place] % (Auto) 4.6 % (0.0-7.3) 03/08/22 09:44 Eos % (Auto) 3.0 % (0.0-4.3) 03/08/22 09:44 Baso % (Auto) 0.7 % (0.0-1.8) 03/08/22 09:44 Lymph # (Auto) 0.9 K/mm3 (1.2-5.4) L 03/08/22 09:44 [place] # (Auto) 0.4 K/mm3 (0.0-0.8) 03/08/22 09:44 Eos # (Auto) 0.2 K/mm3 (0.0-0.4) 03/08/22 09:44 Baso # (Auto) 0.1 K/mm3 (0.0-0.1) 03/08/22 09:44 Seg Neutrophils % 79.5 % (40.0-70.0) H 03/08/22 09:44 Seg Neutrophils # 6.0 K/mm3 (1.8-7.7) 03/08/22 09:44 ABG pH 7.316 pH Units (7.350-7.450) L 03/11/22 10:35 ABG pCO2 54.7 mm Hg 03/11/22 10:35 ABG pO2 81.0 mm Hg (80.0-90.0) 03/11/22 10:35 ABG HCO3 27.3 mmol/L (20.0-26.0) H 03/11/22 10:35 ABG O2 Saturation 95.0 % (95.0-99.0) 03/11/22 10:35 ABG O2 Content 18.1 (0.0-44) 03/11/22 10:35 ABG Base Excess 0.2 mmol/L (-2.0-3.0) 03/11/22 10:35 ABG Hemoglobin 13.7 gm/dl (12.0-16.0) 03/11/22 10:35 ABG Carboxyhemoglobin 0.7 % (0.0-5.0) 03/11/22 10:35 ABG Methemoglobin 0.4 % (0.0-1.5) 03/11/22 10:35 Oxyhemoglobin 94.0 % (95.0-99.0) L 03/11/22 10:35 FiO2 90 % 03/11/22 10:35 Sodium 141 mmol/L (137-145) 03/14/22 09:26 Potassium 3.9 mmol/L (3.6-5.0) 03/14/22 09:26 Chloride 101.4 mmol/L (98-107) 03/14/22 09:26 Carbon Dioxide 27 mmol/L (22-30) 03/14/22 09:26 Anion Gap 17 mmol/L 03/14/22 09:26 BUN 131 mg/dL (7-17) H 03/14/22 09:26 Creatinine 2.6 mg/dL (0.6-1.2) H 03/14/22 09:26 Estimated GFR 22 ml/min 03/14/22 09:26 BUN/Creatinine Ratio 50 % 03/14/22 09:26 Glucose 146 mg/dL (65-100) H 03/14/22 09:26 Calcium 8.9 mg/dL (8.4-10.2) 03/14/22 09:26 Total Bilirubin 0.60 mg/dL (0.1-1.2) 03/04/22 02:51 AST 12 units/L (5-40) 03/04/22 02:51 ALT 6 units/L (7-56) L 03/04/22 02:51 Alkaline Phosphatase 91 units/L (35-129) 03/04/22 02:51 Troponin T < 0.010 ng/mL (0.00-0.029) 03/03/22 13:34 NT-Pro-B Natriuret Pep 52303 pg/mL (0-900) H 03/03/22 13:34 Total Protein 8.4 g/dL (6.3-8.2) H 03/04/22 02:51 Albumin 3.4 g/dL (3.9-5) L 03/04/22 02:51 Albumin/Globulin Ratio 0.7 % 03/04/22 02:51 Urine Color Yellow (Yellow) 03/04/22 17:35 Urine Turbidity Slightly-cloudy (Clear) 03/04/22 17:35 Urine pH 6.0 (5.0-7.0) 03/04/22 17:35 Ur Specific [place] 1.008 (1.003-1.030) 03/04/22 17:35 Urine Protein <15 mg/dl mg/dL (Negative) 03/04/22 17:35 Urine Glucose (UA) Neg mg/dL (Negative) 03/04/22 17:35 Urine Ketones Neg mg/dL (Negative) 03/04/22 17:35 Urine Blood Mod (Negative) 03/04/22 17:35 Urine Nitrite Neg (Negative) 03/04/22 17:35 Urine Bilirubin Neg (Negative) 03/04/22 17:35 Urine Urobilinogen < 2.0 mg/dL (<2.0) 03/04/22 17:35 Ur Leukocyte Esterase Lg (Negative) 03/04/22 17:35 Urine WBC (Auto) 11.0 /HPF (0.0-6.0) H 03/04/22 17:35 Urine RBC (Auto) 2.0 /HPF (0.0-6.0) 03/04/22 17:35 U Epithel Cells (Auto) 1.0 /HPF (0-13.0) 03/04/22 17:35 Urine Bacteria (Auto) 1+ /HPF (Negative) 03/04/22 17:35 Urine Mucus Few /HPF 03/04/22 17:35 Urine Yeast (Budding) Few /HPF 03/04/22 17:35 Urine Creatinine 41.2 mg/dL (0.1-20.0) H 03/04/22 17:35 Urine Sodium 126 mmol/L 03/04/22 17:35 Urine Total Protein 16 mg/dL (5-11.8) H 03/04/22 17:35 Coronavirus (PCR) Negative (Negative) 03/04/22 09:57 Gale/IV: Voiding Method External Female Catheter Active Medications - Current Medications Current Medications: Generic Name Dose Route Start Last Admin Trade Name Freq PRN Reason Stop Dose Admin Acetaminophen 650 mg 03/03/22 20:28 03/14/22 09:56 Acetaminophen 325 Mg Tab PO 650 mg Q4H PRN Administration Pain MILD(1-3)/Fever >100.5/HOFFMAN Cetirizine HCl 10 mg 03/12/22 15:00 03/14/22 09:55 Cetirizine 10 Mg Tab PO 10 mg QDAY VERN Administration Fluticasone Propionate 200 mcg 03/13/22 20:00 03/14/22 09:55 Fluticasone Propionate Nasal [place] 16 Gm NS 200 mcg QDAY VERN Administration Furosemide 40 mg 03/14/22 10:00 03/14/22 09:55 Furosemide 40 Mg/4 Ml Inj IV 40 mg DAILY VERN Administration Guaifenesin 600 mg 03/12/22 15:00 03/14/22 10:02 Guaifenesin Er 600 Mg Tab PO 600 mg BID VERN Administration Heparin Sodium (Porcine) 5,000 unit 03/04/22 14:00 03/14/22 13:39 Heparin 5,000 Unit/1 Ml Vial SUB-Q 5,000 unit Q8HR VERN Administration Methylprednisolone Sodium Succinate 60 mg 03/08/22 12:00 03/14/22 13:39 Methylprednisolone Sod Succinate 125 Mg/2 Ml Inj IV 60 mg Q6HR VERN Administration Metoclopramide HCl 5 mg 03/11/22 12:00 Metoclopramide 10 Mg/2 Ml Inj IV Q6H PRN Nausea And Vomiting Morphine Sulfate 2 mg 03/03/22 20:28 Morphine 2 Mg/1 Ml Inj IV Q4H PRN Pain, Moderate (4-6) Ondansetron HCl 4 mg 03/03/22 20:28 Ondansetron 4 Mg/2 Ml Inj IV Q8H PRN Nausea And Vomiting Oxycodone/Acetaminophen 1 tab 03/03/22 20:28 03/09/22 12:06 Oxycodone /Acetaminophen 5-325mg Tab PO 1 tab Q6H PRN Administration Pain, Moderate (4-6) Pantoprazole Sodium 40 mg 03/12/22 15:00 03/14/22 09:56 Pantoprazole 40 Mg Tab PO 40 mg QDAC VERN Administration Polyethylene Glycol 17 gm 03/06/22 11:00 Polyethylene Glycol 3350 17 Gm Powder PO QDAY PRN Constipation Senna/Docusate Sodium 2 tab 03/06/22 11:00 03/14/22 13:40 Sennosides/Docusate Sodium 8.6/50 Mg Tab PO Not Given Q12H VERN Sildenafil Citrate 20 mg 03/11/22 14:00 03/14/22 13:40 Sildenafil 20 Mg Tab PO 20 mg TID VERN Administration Sodium Chloride 10 ml 03/03/22 22:00 03/14/22 10:02 Sodium Chloride 0.9% 10 Ml Flush Syringe IV 10 ml BID VERN Administration Sodium Chloride 10 ml 03/03/22 20:28 Sodium Chloride 0.9% 10 Ml Flush Syringe IV PRN PRN LINE FLUSH Nutrition/Malnutrition Assess - Dietary Evaluation Nutrition/Malnutrition Findings: Nutrition Notes Start: 03/11/22 14:05 Freq: Status: Active Protocol: Document 03/11/22 14:05 RAOUL (Rec: 03/11/22 14:21 RAOUL [id number]) Nutrition Notes Need for Assessment generated from: LOS Initial or Follow up Assessment Current Diagnosis Acute Kidney Injury,CKD(stage I-IV),Respiratory Failure, Malnutrition Other Pertinent Diagnosis HFpEF, Cor Pulmonale, UTI, Cystitis. Current Diet Cardiac -Renal- Diet (from D 03/11). Labs/Tests 03/11: BUN 108, Crea 2.5, Glu 141. Pertinent Medications 03/11: Nutritionally unremarkable. Height 5 ft 3 in Weight 134.7 kg [place] Body Weight (kg) 52.27 BMI 52.6 Intake Prior to Admission Good Weight change and time frame Pt denies having loss body weight SOAKER MEAT. Weight Status Morbidly Obese Subjective/Other Information RD consult for LOS assessment. Pt's PO intake of meals has been Good (>75%) but fairly tolerated, according to ADL notes. I will prescribe renal modification to current diet to support Pt's RIN/CKD condition during LOS. Pt is on High-Flow Nasal Cannula, O2 saturation @ 96%, according to Physical Assessment History notes. Pt presents an > as signs of concern for skin risk at this time, according to Physical Assessment History notes. Percent of energy/protein needs met: Prescribed Cardiac -Renal- Diet provides for energy/ protein needs (2,230 Kcal/85 g ) during LOS. Burn Absent Trauma Absent GI Symptoms None Food Allergy Yes Skin Integrity/Comment Unspecified dryness and flakiness. 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 As Evidenced by Signs and Symptoms 03/11: BUN 108, Crea 2.5. Is patient on ventilator? No Is Patient Ambulatory and/or Out of Bed Yes REE-([place]-St. Jeor-ambulatory/OOB) [ 2386.969 NUTR.MSJOOB] Kcal/Kg value to use for calculation 10 Approximate Energy Requirements Using 1347 kcal/Kg Calculation Used for Recommendations Kcal/kg Additional Notes Protein: 0.6-0.8 g/Kg AdjBW; 56-75 g/day. Fluids: 1 ml/Kcal, or as per MD. Nutrition Intervention Change Diet Order: Modify to Cardiac -Renal- Diet . Goal #1 Adjust the dietary intervention to better serve Pt's needs and clinical conditions during LOS. Additional Comments Continue monitoring food tolerance, %PO intake of meals , and BM.
--- NOTE | 2022-03-14 14:33 | Progress Note ---
Assessment and Plan - Patient Problems (1) Interstitial edema Current Visit: Yes Status: Acute Plan to address problem: 71-year-old woman with morbid obesity, obstructive sleep apnea, hypertension, presents with shortness of breath and chest x-ray evidence of mild to moderate interstitial edema. Previous invasive cardiac work-up 10 years ago showed no significant coronary artery disease. Prior left ventricular systolic function assessment was well-preserved at 50%. Echocardiogram on this presentation demonstrates well-preserved left ventricular systolic function. Major finding on the echocardiogram is the presence of severe cor pulmonale with dilated right heart chambers, moderate to severe tricuspid regurgitation and severe pulmonary hypertension with pulmonary artery systolic pressures approaching systemic levels. Chronic lung disease appears to be primary etiology for dyspnea, respiratory insufficiency and hypoxemia. Subjective Date of service: 03/14/22 Principal diagnosis: Hypoxic respiratory failure Interval history: Patient is comfortable, no cardiac complaints, no new cardiac events reported. Patient is on nasal oxygen. 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 Objective Vital Signs Temp Pulse Pulse Resp BP Pulse Ox 03/14/22 08:00 94 03/14/22 03:51 98.1 F 73 19 130/66 95 03/14/22 01:09 97 03/13/22 23:48 98.3 F 85 20 126/69 90 03/13/22 23:15 83 24 126/69 97 03/13/22 22:00 97 H 03/13/22 20:50 97.5 F L 99 H 20 140/80 93 03/13/22 20:45 95 03/13/22 20:00 69 24 92 03/13/22 18:41 92 03/13/22 17:20 98.1 F 90 18 119/74 93 - Physical Examination General: No Apparent Distress HEENT: Positive: PERRL Neck: Positive: neck supple Cardiac: Positive: Reg Rate and Rhythm Lungs: Positive: Decreased Breath Sounds Neuro: Positive: Grossly Intact Abdomen: Positive: Soft Skin: Positive: Clear Extremities: Present: edema (Minimal) - Labs and Meds Comprehensive Metabolic Panel 03/14/22 Range/Units 09:26 Sodium 141 (137-145) mmol/L Potassium 3.9 (3.6-5.0) mmol/L Chloride 101.4 (98-107) mmol/L Carbon Dioxide 27 (22-30) mmol/L BUN 131 H (7-17) mg/dL Creatinine 2.6 H (0.6-1.2) mg/dL Glucose 146 H (65-100) mg/dL Calcium 8.9 (8.4-10.2) mg/dL - Imaging and Cardiology EKG: report reviewed (Sinus tachycardia no acute ST-T wave changes)
--- NOTE | 2022-03-14 23:28 | Progress Note ---
Assessment and Plan - Patient Problems (1) Chronic kidney disease, stage 3b Current Visit: Yes Status: Acute Plan to address problem: RIN on CKD, secondary to Prerenal azotemia secondary to acute cardiorenal syndrome/diuresis. Kidney indices are a bit worse. Steroids also contributing to the severe azotemia. Follow-up electrolytes and renal function (2) Acute exacerbation of congestive heart failure Current Visit: Yes Status: Acute Qualifiers: Heart failure type: combined systolic and diastolic Qualified Code(s): I50 .43 - Acute on chronic combined systolic (congestive) and diastolic (congestive) heart failure Plan to address problem: Cardiology input appreciated. Preserved ejection fraction with severe pulmonary hypertension. CT chest showed cardiomegaly with interstitial edema. Incomplete records of intake/output. Continue IV diuretics but decrease Lasix to once daily in the morning. Discussed with the patient about possible need for dialysis. Hopefully kidney function stabilizes. (3) Acute respiratory failure with hypoxia Current Visit: Yes Status: Acute Plan to address problem: Multifactorial. Continue respiratory support/management by home care music therapist (4) Hypertensive chronic kidney disease with stage 1 through stage 4 chronic kidney disease, or unspecified chronic kidney disease Current Visit: Yes Status: Acute Plan to address problem: Follow-up blood pressure on current medications (5) Urinary tract infection Current Visit: Yes Status: Acute Plan to address problem: ESBL urinary tract infection completed course of macrobid and ertapenem Subjective Date of service: 03/14/22 Principal diagnosis: Hypoxic respiratory failure Interval history: Patient is awake, alert, in no acute distress, denies fever, chills, n/v/d, CP, dysuria. improved respiratory status on supplemental O2, IV diuresis Objective - Vital Signs Vital signs: Vital Signs - 12hr 03/14/22 03/14/22 03/14/22 14:00 17:52 20:06 Temperature 97.9 F Pulse Rate 77 82 Respiratory 20 Rate Blood Pressure 121/69 Blood Pressure 139/75 [Left] O2 Sat by Pulse 95 91 93 Oximetry 03/14/22 21:17 Temperature Pulse Rate 83 Respiratory 24 Rate Blood Pressure Blood Pressure [Left] O2 Sat by Pulse 94 Oximetry - General Appearance General appearance: well-developed, well-nourished, appears stated age EENT: ATNC, PERRL, mucous membranes moist Neck: no JVD Respiratory: Present: Decreased Breath Sounds Cardiology: regular, S1S2 Gastrointestinal: normoactive bowel sounds, obese Integumentary: no rash Neurologic: no focal deficit, alert and oriented x3, strength 5/5, CN 3-12 intact Psychiatric: mood/affect appropriate, cooperative - Lab 03/08/22 09:44 03/14/22 09:26 Most recent lab results ABG pH 7.316 pH Units (7.350-7.450) L 03/11/22 10:35 ABG pCO2 54.7 mm Hg 03/11/22 10:35 ABG pO2 81.0 mm Hg (80.0-90.0) 03/11/22 10:35 ABG HCO3 27.3 mmol/L (20.0-26.0) H 03/11/22 10:35 ABG O2 Saturation 95.0 % (95.0-99.0) 03/11/22 10:35 Calcium 8.9 mg/dL (8.4-10.2) 03/14/22 09:26 Urine Creatinine 41.2 mg/dL (0.1-20.0) H 03/04/22 17:35 Urine Sodium 126 mmol/L 03/04/22 17:35 Urine Total Protein 16 mg/dL (5-11.8) H 03/04/22 17:35 Medications & Allergies - Medications Allergies/Adverse Reactions: Allergies iodine Allergy (Verified 03/03/22 12:49) Anaphylaxis Penicillins Allergy (Verified 03/03/22 12:49) Anaphylaxis shellfish derived Allergy (Verified 03/03/22 12:49) Anaphylaxis Home Medications: Home Medications Medication Instructions Recorded Confirmed Last Taken Type Acetaminophen [Non-Aspirin Extra 500 mg PO Q8HR PRN 03/04/22 03/04/22 03/01/22 History Strength] Aspirin EC 325 mg PO 4XW 03/04/22 03/04/22 03/02/22 History Hydrocodone-Acetamin 2.5-325 5 - 325 mg PO Q6HR PRN 03/04/22 03/04/22 03/02/22 History Mucus Relief ER 600 mg PO BID 03/04/22 03/05/22 03/02/22 History Omeprazole 40 mg PO DAILY 03/04/22 03/05/22 03/02/22 History Phenazopyridine 200 mg PO TID 03/04/22 03/04/22 03/03/22 History Senna Plus Tablet 8.6 - 50 mg PO BID MDD CONSTIPATION 03/04/22 03/05/22 03/02/22 History Diclofenac Sodium ER 75 mg PO Q8HR 03/05/22 03/05/22 03/02/22 History Nifedipine ER 60 mg PO DAILY 03/05/22 03/05/22 03/02/22 History Vitamin D3 25 mg PO DAILY 03/05/22 03/05/22 03/02/22 History Active Medications: Generic Name Dose Route Start Last Admin Trade Name Freq PRN Reason Stop Dose Admin Acetaminophen 650 mg 03/03/22 20:28 03/14/22 09:56 Acetaminophen 325 Mg Tab PO 650 mg Q4H PRN Administration Pain MILD(1-3)/Fever >100.5/HOFFMAN Cetirizine HCl 10 mg 03/12/22 15:00 03/14/22 09:55 Cetirizine 10 Mg Tab PO 10 mg QDAY VERN Administration Fluticasone Propionate 200 mcg 03/13/22 20:00 03/14/22 09:55 Fluticasone Propionate Nasal [place] 16 Gm NS 200 mcg QDAY VERN Administration Furosemide 40 mg 03/14/22 10:00 03/14/22 09:55 Furosemide 40 Mg/4 Ml Inj IV 40 mg DAILY VERN Administration Guaifenesin 600 mg 03/12/22 15:00 03/14/22 21:07 Guaifenesin Er 600 Mg Tab PO 600 mg BID VERN Administration Heparin Sodium (Porcine) 5,000 unit 03/04/22 14:00 03/14/22 13:39 Heparin 5,000 Unit/1 Ml Vial SUB-Q 5,000 unit Q8HR VERN Administration Methylprednisolone Sodium Succinate 60 mg 03/08/22 12:00 03/14/22 17:52 Methylprednisolone Sod Succinate 125 Mg/2 Ml Inj IV 60 mg Q6HR VERN Administration Metoclopramide HCl 5 mg 03/11/22 12:00 Metoclopramide 10 Mg/2 Ml Inj IV Q6H PRN Nausea And Vomiting Morphine Sulfate 2 mg 03/03/22 20:28 Morphine 2 Mg/1 Ml Inj IV Q4H PRN Pain, Moderate (4-6) Ondansetron HCl 4 mg 03/03/22 20:28 Ondansetron 4 Mg/2 Ml Inj IV Q8H PRN Nausea And Vomiting Oxycodone/Acetaminophen 1 tab 03/03/22 20:28 03/09/22 12:06 Oxycodone /Acetaminophen 5-325mg Tab PO 1 tab Q6H PRN Administration Pain, Moderate (4-6) Pantoprazole Sodium 40 mg 03/12/22 15:00 03/14/22 09:56 Pantoprazole 40 Mg Tab PO 40 mg QDAC VERN Administration Polyethylene Glycol 17 gm 03/06/22 11:00 Polyethylene Glycol 3350 17 Gm Powder PO QDAY PRN Constipation Senna/Docusate Sodium 2 tab 03/06/22 11:00 03/14/22 23:10 Sennosides/Docusate Sodium 8.6/50 Mg Tab PO Not Given Q12H VERN Sildenafil Citrate 20 mg 03/11/22 14:00 03/14/22 21:07 Sildenafil 20 Mg Tab PO 20 mg TID VERN Administration Sodium Chloride 10 ml 03/03/22 22:00 03/14/22 21:08 Sodium Chloride 0.9% 10 Ml Flush Syringe IV 10 ml BID VERN Administration Sodium Chloride 10 ml 03/03/22 20:28 Sodium Chloride 0.9% 10 Ml Flush Syringe IV PRN PRN LINE FLUSH
[2022-03-15] MEDS: methylPREDNISolone Sod Succinate 125 MG/2 ML INJ IV SCH ×4 (00:06→21:53)
[2022-03-15] MEDS: HEPARIN 5,000 UNIT/1 ML VIAL SUB-Q SCH ×3 (05:50→21:54)
[2022-03-15] MEDS: FLUTICASONE PROPIONATE NASAL SPRAY 16 GM NS SCH (09:13)
[2022-03-15] MEDS: FUROSEMIDE 40 MG/4 ML INJ IV SCH (09:13)
[2022-03-15] MEDS: ACETAMINOPHEN 325 MG TAB PO PRN (09:14)
[2022-03-15] MEDS: CETIRIZINE 10 MG TAB PO SCH (09:14)
[2022-03-15] MEDS: SILDENAFIL 20 MG TAB PO SCH ×3 (09:14→21:53)
[2022-03-15] MEDS: PANTOPRAZOLE 40 MG TAB PO SCH (09:15)
[2022-03-15] MEDS: guaiFENesin ER 600 MG TAB PO SCH ×2 (09:15→21:54)
[2022-03-15 09:20] LABS: Calcium 8.8 mg/dL (8.4-10.2)
--- NOTE | 2022-03-15 10:23 | Progress Note ---
Assessment and Plan - Patient Problems (1) Chronic kidney disease, stage 3b Current Visit: Yes Status: Acute Plan to address problem: RIN on CKD, secondary to Prerenal azotemia secondary to acute cardiorenal syndrome/diuresis. Steroids also contributing to the severe azotemia. pt however without acute uremic complication at present, no acute need for renal replacement therapy. Follow-up electrolytes and renal function (2) Acute exacerbation of congestive heart failure Current Visit: Yes Status: Acute Qualifiers: Heart failure type: combined systolic and diastolic Qualified Code(s): I50.43 - Acute on chronic combined systolic (congestive) and diastolic (congestive) heart failure Plan to address problem: Cardiology input appreciated. Preserved ejection fraction with severe pulmonary hypertension. CT chest showed cardiomegaly with interstitial edema. Incomplete records of intake/output. Continue IV diuretics but decrease Lasix to once daily in the morning. Discussed with the patient about possible need for dialysis. Hopefully kidney function stabilizes. (3) Acute respiratory failure with hypoxia Current Visit: Yes Status: Acute Plan to address problem: Multifactorial. Continue respiratory support/management by puppy sitter (4) Hypertensive chronic kidney disease with stage 1 through stage 4 chronic kidney disease, or unspecified chronic kidney disease Current Visit: Yes Status: Acute Plan to address problem: Follow-up blood pressure on current medications (5) Urinary tract infection Current Visit: Yes Status: Acute Plan to address problem: ESBL urinary tract infection completed course of macrobid and ertapenem Subjective Date of service: 03/15/22 Principal diagnosis: Hypoxic respiratory failure Interval history: Patient is awake, alert, in no acute distress, denies fever, chills, n/v/d, CP, dysuria. currently on HFNC 25L 45% Objective - Vital Signs Vital signs: Vital Signs - 12hr 03/14/22 03/15/22 03/15/22 23:00 03:37 08:00 Temperature 97.6 F 97.1 F L Pulse Rate 75 66 Respiratory 20 19 Rate Blood Pressure 122/64 Blood Pressure 139/67 [Left] O2 Sat by Pulse 92 97 100 Oximetry 03/15/22 08:05 Temperature 97.3 F L Pulse Rate 62 Respiratory 20 Rate Blood Pressure 138/71 Blood Pressure [Left] O2 Sat by Pulse 100 Oximetry - General Appearance General appearance: well-developed, well-nourished, appears stated age, obese EENT: ATNC, PERRL, mucous membranes moist Neck: no JVD Respiratory: Present: Clear to Ascultation Cardiology: regular, S1S2 Gastrointestinal: normoactive bowel sounds Integumentary: no rash Neurologic: no focal deficit, alert and oriented x3, strength 5/5, CN 3-12 intact Psychiatric: mood/affect appropriate, cooperative - Lab 03/08/22 09:44 03/15/22 07:37 Most recent lab results ABG pH 7.316 pH Units (7.350-7.450) L 03/11/22 10:35 ABG pCO2 54.7 mm Hg 03/11/22 10:35 ABG pO2 81.0 mm Hg (80.0-90.0) 03/11/22 10:35 ABG HCO3 27.3 mmol/L (20.0-26.0) H 03/11/22 10:35 ABG O2 Saturation 95.0 % (95.0-99.0) 03/11/22 10:35 Calcium 8.8 mg/dL (8.4-10.2) 03/15/22 07:37 Urine Creatinine 41.2 mg/dL (0.1-20.0) H 03/04/22 17:35 Urine Sodium 126 mmol/L 03/04/22 17:35 Urine Total Protein 16 mg/dL (5-11.8) H 03/04/22 17:35 Medications & Allergies - Medications Allergies/Adverse Reactions: Allergies iodine Allergy (Verified 03/03/22 12:49) Anaphylaxis Penicillins Allergy (Verified 03/03/22 12:49) Anaphylaxis shellfish derived Allergy (Verified 03/03/22 12:49) Anaphylaxis Home Medications: Home Medications Medication Instructions Recorded Confirmed Last Taken Type Acetaminophen [Non-Aspirin Extra 500 mg PO Q8HR PRN 03/04/22 03/04/22 03/01/22 H istory Strength] Aspirin EC 325 mg PO 4XW 03/04/22 03/04/22 03/02/22 History Hydrocodone-Acetamin 2.5-325 5 - 325 mg PO Q6HR PRN 03/04/22 03/04/22 03/02/22 History Mucus Relief ER 600 mg PO BID 03/04/22 03/05/22 03/02/22 History Omeprazole 40 mg PO DAILY 03/04/22 03/05/22 03/02/22 History Phenazopyridine 200 mg PO TID 03/04/22 03/04/22 03/03/22 History Senna Plus Tablet 8.6 - 50 mg PO BID MDD CONSTIPATION 03/04/22 03/05/22 03/02/22 History Diclofenac Sodium ER 75 mg PO Q8HR 03/05/22 03/05/22 03/02/22 History Nifedipine ER 60 mg PO DAILY 03/05/22 03/05/22 03/02/22 History Vitamin D3 25 mg PO DAILY 03/05/22 03/05/22 03/02/22 History Active Medications: Generic Name Dose Route Start Last Admin Trade Name Freq PRN Reason Stop Dose Admin Acetaminophen 650 mg 03/03/22 20:28 03/15/22 09:14 Acetaminophen 325 Mg Tab PO 650 mg Q4H PRN Administration Pain MILD(1-3)/Fever >100.5/HOFFMAN Cetirizine HCl 10 mg 03/12/22 15:00 03/15/22 09:14 Cetirizine 10 Mg Tab PO 10 mg QDAY VERN Administration Fluticasone Propionate 200 mcg 03/13/22 20:00 03/15/22 09:13 Fluticasone Propionate Nasal [place] 16 Gm NS 200 mcg QDAY VERN Administration Furosemide 40 mg 03/14/22 10:00 03/15/22 09:13 Furosemide 40 Mg/4 Ml Inj IV 40 mg DAILY VERN Administration Guaifenesin 600 mg 03/12/22 15:00 03/15/22 09:15 Guaifenesin Er 600 Mg Tab PO 600 mg BID VERN Administration Heparin Sodium (Porcine) 5,000 unit 03/04/22 14:00 03/15/22 05:50 Heparin 5,000 Unit/1 Ml Vial SUB-Q 5,000 unit Q8HR VERN Administration Methylprednisolone Sodium Succinate 60 mg 03/15/22 10:00 Methylprednisolone Sod Succinate 125 Mg/2 Ml Inj IV Q12HR VERN Metoclopramide HCl 5 mg 03/11/22 12:00 Metoclopramide 10 Mg/2 Ml Inj IV Q6H PRN Nausea And Vomiting Morphine Sulfate 2 mg 03/03/22 20:28 Morphine 2 Mg/1 Ml Inj IV Q4H PRN Pain, Moderate (4-6) Ondansetron HCl 4 mg 03/03/22 20:28 Ondansetron 4 Mg/2 Ml Inj IV Q8H PRN Nausea And Vomiting Oxycodone/Acetaminophen 1 tab 03/03/22 20:28 03/09/22 12:06 Oxycodone /Acetaminophen 5-325mg Tab PO 1 tab Q6H PRN Administration Pain, Moderate (4-6) Pantoprazole Sodium 40 mg 03/12/22 15:00 03/15/22 09:15 Pantoprazole 40 Mg Tab PO 40 mg QDAC VERN Administration Polyethylene Glycol 17 gm 03/06/22 11:00 Polyethylene Glycol 3350 17 Gm Powder PO QDAY PRN Constipation Senna/Docusate Sodium 2 tab 03/06/22 11:00 03/14/22 23:10 Sennosides/Docusate Sodium 8.6/50 Mg Tab PO Not Given Q12H VERN Sildenafil Citrate 20 mg 03/11/22 14:00 03/15/22 09:14 Sildenafil 20 Mg Tab PO 20 mg TID VERN Administration Sodium Chloride 10 ml 03/03/22 22:00 03/15/22 09:15 Sodium Chloride 0.9% 10 Ml Flush Syringe IV 10 ml BID VERN Administration Sodium Chloride 10 ml 03/03/22 20:28 Sodium Chloride 0.9% 10 Ml Flush Syringe IV PRN PRN LINE FLUSH
[2022-03-15] MEDS: SENNOSIDES/DOCUSATE SODIUM 8.6/50 MG TAB PO SCH ×2 (10:54→23:27)
--- NOTE | 2022-03-15 11:15 | Progress Note ---
Assessment and Plan - Patient Problems (1) Interstitial edema Current Visit: Yes Status: Acute Plan to address problem: 71-year-old woman with morbid obesity, obstructive sleep apnea, hypertension, presents with shortness of breath and chest x-ray evidence of mild to moderate interstitial edema. Previous invasive cardiac work-up 10 years ago showed no significant coronary artery disease. Prior left ventricular systolic function assessment was well-preserved at 50%. Echocardiogram on this presentation demonstrates well-preserved left ventricular systolic function. Major finding on the echocardiogram is the presence of severe cor pulmonale with dilated right heart chambers, moderate to severe tricuspid regurgitation and severe pulmonary hypertension with pulmonary artery systolic pressures approaching systemic levels. Chronic lung disease appears to be primary etiology for dyspnea, respiratory insufficiency and hypoxemia. Subjective Date of service: 03/15/22 Principal diagnosis: Hypoxic respiratory failure Interval history: Patient is comfortable, no cardiac complaints, no new cardiac events reported. Patient is on nasal oxygen. On monitor technician, there is a stable sinus rhythm at 80. Objective Vital Signs Temp Pulse Resp BP BP Pulse Ox 03/15/22 08:05 97.3 F L 62 20 138/71 100 03/15/22 08:00 94 03/15/22 03:37 97.1 F L 66 19 122/64 97 03/14/22 23:00 97.6 F 75 20 139/67 92 03/14/22 21:17 83 24 94 03/14/22 20:06 97.9 F 82 20 121/69 93 03/14/22 20:00 94 03/14/22 17:52 77 139/75 91 03/14/22 14:00 95 - Physical Examination General: No Apparent Distress HEENT: Positive: PERRL Neck: Positive: neck supple Cardiac: Positive: Reg Rate and Rhythm Lungs: Positive: Decreased Breath Sounds Neuro: Positive: Grossly Intact Abdomen: Positive: Soft Skin: Positive: Clear Extremities: Present: edema (Minimal) - Labs and Meds Comprehensive Metabolic Panel 03/15/22 Range/Units 07:37 Sodium 143 (137-145) mmol/L Potassium 4.2 (3.6-5.0) mmol/L Chloride 102.1 (98-107) mmol/L Carbon Dioxide 25 (22-30) mmol/L BUN 134 H (7-17) mg/dL Creatinine 2.5 H (0.6-1.2) mg/dL Glucose 156 H (65-100) mg/dL Calcium 8.8 (8.4-10.2) mg/dL - Imaging and Cardiology EKG: report reviewed (Sinus tachycardia no acute ST-T wave changes)
--- NOTE | 2022-03-15 11:42 | Progress Note ---
Assessment and Plan 71 y/o female with severe pulm htn and Eliseo with acute on chronic respiratory failure. 03/15/22: Decreased steroids to BID. Continue Sildenafil at current dosing. Continue daily net negative state if possible and wean FiO2 for sats >88%. Still feel patient would benefit from right and left heart cath if able to be weaned off HFNC and able to lie flat. 03/09/22: Without an exact cause for her Pulm HTN, would be difficult to say if there is anything else that could be done for her severe pulm HTN. If this is truly worsening of lung disease, given the rate that it has happened, even treatment of COPD would not improve quality of life significantly. If she has developed type 1 pulmonary HTN, she would need at least 2-3 drug therapy and she may not tolerate this as well given her age and current clinical status. A right and left heart cath would be necessary before determination of this degree of therapy. Do not disagree with hospice referral again. Has been on steroid therapy less than 24 hours. Would continue to see if any benefit. Prognosis still remains guarded. 03/08/22: Last time this patient was seen in our office was 2015. At that time she only had mild COPD. Unable to obtain repeat divina at this time. She did not smoke since being on hospice care and was recently discharged secondary to lack of further decline (although one could argue for it now). Will attempt steroid therapy to see if this improves oxygen requirement, however as stated earlier, patient may benefit from right heart cath with drug study if no improvement on steroids. V/Q done but was not ordered looking for acute PE but more for concern for CTEPH. Guarded prognosis. 03/07/22: No new recs. Will find old office notes today to see the last time we saw this patient. 03/06/22: CXR read by rads suggest unchanged edema. Agree with continued diuresis and fluid restriction. Wean Vent for sats >88%. Continue NIV therapy at night 1. Cardiology following. This degree of Pulm HTN is not seen with just ELISEO alone, especially in someone who is compliant with therapy. Defer to cards but would consider right heart cath if not already done previously 2. Continue bipap therapy at night as well as PRN during the day. Patient does not know her settings for her machine at home and my office did not manipulate these numbers last. Will titrate sat of >88% and comfort 3. Agree with continued diuresis, CXR shows continued vascular congestion, maybe slightly better, maybe 4. Wean FiO2 for sats >88% Subjective Date of service: 03/15/22 Principal diagnosis: Hypoxic respiratory failure Interval history: Remains on HFNC but lower than the last time I evaluated. Since then still on same high dose steroids and Sildenafil has been added. Objective Vital Signs - 12hr 03/15/22 03/15/22 03/15/22 03:37 08:00 08:05 Temperature 97.1 F L 97.3 F L Pulse Rate 66 62 Respiratory 19 20 Rate Blood Pressure 122/64 138/71 O2 Sat by Pulse 97 94 100 Oximetry Constitutional: no acute distress, alert, other (obese) Eyes: non-icteric ENT: oropharynx moist Neck: supple, other (obese) Effort: mildly labored Ascultation: Bilateral: diminished breath sounds, rales Percussion: Bilateral: not dull Cardiovascular: regular rate and rhythm (no mrg) Gastrointestinal: normoactive bowel sounds, soft, non-tender, non-distended Integumentary: normal Extremities: no cyanosis, no edema, pink and warm Neurologic: normal mental status, non-focal exam, pupils equal and round Psychiatric: mood appropriate, affect normal CBC and BMP: 03/08/22 09:44 03/15/22 07:37 ABG, PT/INR, D-dimer: ABG ABG pH 7.316 pH Units (7.350-7.450) L 03/11/22 10:35 ABG pCO2 54.7 mm Hg 03/11/22 10:35 ABG pO2 81.0 mm Hg (80.0-90.0) 03/11/22 10:35 ABG O2 Saturation 95.0 % (95.0-99.0) 03/11/22 10:35 Abnormal lab findings: Abnormal Labs 03/03/22 03/03/22 03/03/22 13:34 13:34 13:34 RDW 16.1 H Lymph % (Auto) 9.7 L Lymph # (Auto) 0.8 L Seg Neutrophils % 84.6 H ABG pH ABG HCO3 Oxyhemoglobin Sodium Potassium Chloride BUN 47 H Creatinine 1.7 H Glucose 101 H ALT NT-Pro-B Natriuret Pep 48830 H Total Protein 9.1 H Albumin 3.5 L Urine WBC (Auto) Urine Creatinine Urine Total Protein 03/04/22 03/04/22 03/04/22 02:51 03:05 17:35 RDW 16.0 H Lymph % (Auto) 8.9 L Lymph # (Auto) 0.8 L Seg Neutrophils % 84.1 H ABG pH ABG HCO3 Oxyhemoglobin Sodium Potassium Chloride BUN 46 H Creatinine 1.8 H Glucose 119 H ALT 6 L NT-Pro-B Natriuret Pep Total Protein 8.4 H Albumin 3.4 L Urine WBC (Auto) 11.0 H Urine Creatinine Urine Total Protein 03/04/22 03/05/22 03/05/22 17:35 12:08 15:18 RDW Lymph % (Auto) Lymph # (Auto) Seg Neutrophils % ABG pH ABG HCO3 Oxyhemoglobin Sodium Potassium 6.4 H* D Chloride BUN 55 H 55 H Creatinine 2.0 H 2.0 H Glucose 120 H 116 H ALT NT-Pro-B Natriuret Pep Total Protein Albumin Urine WBC (Auto) Urine Creatinine 41.2 H Urine Total Protein 16 H 03/06/22 03/08/22 03/08/22 05:25 09:44 09:44 RDW 15.9 H Lymph % (Auto) 12.2 L Lymph # (Auto) 0.9 L Seg Neutrophils % 79.5 H ABG pH ABG HCO3 Oxyhemoglobin Sodium Potassium Chloride BUN 58 H 69 H Creatinine 2.1 H 2.3 H Glucose 103 H ALT NT-Pro-B Natriuret Pep Total Protein Albumin Urine WBC (Auto) Urine Creatinine Urine Total Protein 03/08/22 03/09/22 03/10/22 14:36 05:43 07:16 RDW Lymph % (Auto) Lymph # (Auto) Seg Neutrophils % ABG pH ABG HCO3 Oxyhemoglobin Sodium Potassium 5.3 H D Chloride BUN 70 H 82 H 95 H Creatinine 2.4 H 2.5 H 2.3 H Glucose 125 H 149 H 141 H ALT NT-Pro-B Natriuret Pep Total Protein Albumin Urine WBC (Auto) Urine Creatinine Urine Total Protein 03/11/22 03/11/22 03/12/22 06:44 10:35 06:27 RDW Lymph % (Auto) Lymph # (Auto) Seg Neutrophils % ABG pH 7.316 L ABG HCO3 27.3 H Oxyhemoglobin 94.0 L Sodium Potassium Chloride BUN 108 H 113 H Creatinine 2.5 H 2.4 H Glucose 141 H 216 H ALT NT-Pro-B Natriuret Pep Total Protein Albumin Urine WBC (Auto) Urine Creatinine Urine Total Protein 03/13/22 03/14/22 03/15/22 10:19 09:26 07:37 RDW Lymph % (Auto) Lymph # (Auto) Seg Neutrophils % ABG pH ABG HCO3 Oxyhemoglobin Sodium 136 L Potassium Chloride 97.3 L BUN 121 H 131 H 134 H Creatinine 2.4 H 2.6 H 2.5 H Glucose 279 H 146 H 156 H ALT NT-Pro-B Natriuret Pep Total Protein Albumin Urine WBC (Auto) Urine Creatinine Urine Total Protein
--- NOTE | 2022-03-15 16:13 | Progress Note ---
Assessment and Plan Assessment and plan: #Severe pulmonary arterial hypertension #Acute on chronic hypoxic respiratory failure-improving - baseline oxygen requirements: 5 L nasal cannula - supplemental oxygen: HFNC 25 L / 45% FiO2; will attempt to wean as tolerated Pulmonology following; assistance appreciated - Continue protocol: continue pulse oximetry, wean oxygen as tolerated, ordered incentive spirometry and educated patient on how to use it and its importance - Unremarkable LE dopplers. V/Q scan low probability for PE - CTA of the chest: intersitial edema and central pulmonary arterial enlargement suggest of PAH - continue IV steroids; may benefit from R + L heart cath for further evaluation - Patient is on sildenafil #Acute on chronic diastolic heart failureimproving #Cor pulmonale - Continue CHF exacerbation protocol: Telemetry, Strict I/O, monitor urine output every shift, daily weights, afterload reduction, low-sodium diet, and fluid restriction of approximately 1.5 mL/day - continue PO diuretics - ProBNP on admission: 11,875 - Cardiology following; appreciate recs - TTE (03/04/2022) revealing EF 50-55% with normal-sized LV, lower limits of normal LV systolic function, borderline concentric LVH, severely dilated RV, severely reduced RV systolic function, mildly dilated LA, severely dilated RA, RVSP >95 mmHg, and severe pulmonary hypertension. -Patient is on IV Lasix 40 mg daily #ESBL UTI/cystitis without hematuriaresolved Urinalysis revealing large leukocyte esterase, WBC 11, 1+ bacteria, few budding yeast. - Macrobid discontinued due to worsening renal function, ertapenem x3 doses started per ID recs Infectious disease following, assistance appreciated Continue precautions #Atypical chest painruled out Negative troponin x2 Likely secondary to volume overload in the setting of acute heart failure. #RIN on CKD stage IIIstable SCr 2.4 today Renally dose meds and avoid nephrotoxic drugs Nephrology following; appreciate recs #Mild protein caloric malnutrition Albumin 3.4 Continue dietary supplementation #Morbid obesity #Weight loss counseling #Exercise counseling - BMI 53.1 - Counseled patient on the importance of weight loss, incorporating exercise, and dietary changes (lean meats, fresh fruits and vegetables, and water intake). Patient expresses understanding. - Time: +15 min Critical Care Billing: The high probability of a clinically significant, sudden or life threatening deterioration of the [respiratory] system(s) required my full and direct attention, intervention and personal management. The aggregate critical care time was [60] minutes. This time is in addition to time spent performing reported procedures but includes the following: [x] Data Review and interpretation [x] Patient assessment and monitoring of vital signs [x] Documentation [x] Medication orders and management Disposition Plan: Continue medical management Total Time Spent with Patient (Minutes): 45 minutes History Interval history: No acute events overnight. Hospitalist Physical - Constitutional Vitals: Temp Pulse Resp BP Pulse Ox 99.0 F 87 18 122/66 91 03/15/22 12:29 03/15/22 12:29 03/15/22 12:29 03/15/22 12:29 03/15/22 12:29 General appearance: Present: mild distress, well-nourished, obese - EENT Eyes: Present: PERRL, EOM intact ENT: hearing intact, clear oral mucosa, dentition normal - Neck Neck: Present: supple, normal ROM - Respiratory Respiratory effort: normal Respiratory: bilateral: diminished (On high flow nasal cannula 25 L / 45% FiO2) - Cardiovascular Rhythm: regular Heart Sounds: Present: S1 & S2 - Extremities Extremities: no ischemia, pulses intact, pulses symmetrical, normal temperature, normal color Extremity abnormal: edema (Trace edema bilateral lower extremities) Peripheral Pulses: within normal limits - Abdominal General gastrointestinal: soft, non-tender, non-distended, normal bowel sounds - Integumentary Integumentary: Present: clear, warm, dry - Psychiatric Psychiatric: appropriate mood/affect, memory intact, cooperative - Neurologic Neurologic: CNII-XII intact, moves all extremities - Allied Health Allied health notes reviewed: nursing HEART Score - HEART Score Age: > 65 Risk factors: 1-2 risk factors Troponin: Troponin T < 0.010 ng/mL (0.00-0.029) 03/03/22 13:34 Troponin: < normal limit - Critical Actions Critical Actions: 4-6 pts:12-16.6% risk of adverse cardiac event. Should be admitted Results - Labs CBC & Chem 7: 03/08/22 09:44 03/15/22 07:37 Labs: Laboratory Last Values WBC 7.6 K/mm3 (4.5-11.0) 03/08/22 09:44 RBC 4.57 M/mm3 (3.65-5.03) 03/08/22 09:44 Hgb 13.3 gm/dl (10.1-14.3) 03/08/22 09:44 Hct 41.7 % (30.3-42.9) 03/08/22 09:44 MCV 91 fl (79-97) 03/08/22 09:44 MCH 29 pg (28-32) 03/08/22 09:44 MCHC 32 % (30-34) 03/08/22 09:44 RDW 15.9 % (13.2-15.2) H 03/08/22 09:44 Plt Count 207 K/mm3 (140-440) 03/08/22 09:44 Lymph % (Auto) 12.2 % (13.4-35.0) L 03/08/22 09:44 [place] % (Auto) 4.6 % (0.0-7.3) 03/08/22 09:44 Eos % (Auto) 3.0 % (0.0-4.3) 03/08/22 09:44 Baso % (Auto) 0.7 % (0.0-1.8) 03/08/22 09:44 Lymph # (Auto) 0.9 K/mm3 (1.2-5.4) L 03/08/22 09:44 [place] # (Auto) 0.4 K/mm3 (0.0-0.8) 03/08/22 09:44 Eos # (Auto) 0.2 K/mm3 (0.0-0.4) 03/08/22 09:44 Baso # (Auto) 0.1 K/mm3 (0.0-0.1) 03/08/22 09:44 Seg Neutrophils % 79.5 % (40.0-70.0) H 03/08/22 09:44 Seg Neutrophils # 6.0 K/mm3 (1.8-7.7) 03/08/22 09:44 ABG pH 7.316 pH Units (7.350-7.450) L 03/11/22 10:35 ABG pCO2 54.7 mm Hg 03/11/22 10:35 ABG pO2 81.0 mm Hg (80.0-90.0) 03/11/22 10:35 ABG HCO3 27.3 mmol/L (20.0-26.0) H 03/11/22 10:35 ABG O2 Saturation 95.0 % (95.0-99.0) 03/11/22 10:35 ABG O2 Content 18.1 (0.0-44) 03/11/22 10:35 ABG Base Excess 0.2 mmol/L (-2.0-3.0) 03/11/22 10:35 ABG Hemoglobin 13.7 gm/dl (12.0-16.0) 03/11/22 10:35 ABG Carboxyhemoglobin 0.7 % (0.0-5.0) 03/11/22 10:35 ABG Methemoglobin 0.4 % (0.0-1.5) 03/11/22 10:35 Oxyhemoglobin 94.0 % (95.0-99.0) L 03/11/22 10:35 FiO2 90 % 03/11/22 10:35 Sodium 143 mmol/L (137-145) 03/15/22 07:37 Potassium 4.2 mmol/L (3.6-5.0) 03/15/22 07:37 Chloride 102.1 mmol/L (98-107) 03/15/22 07:37 Carbon Dioxide 25 mmol/L (22-30) 03/15/22 07:37 Anion Gap 20 mmol/L 03/15/22 07:37 BUN 134 mg/dL (7-17) H 03/15/22 07:37 Creatinine 2.5 mg/dL (0.6-1.2) H 03/15/22 07:37 Estimated GFR 23 ml/min 03/15/22 07:37 BUN/Creatinine Ratio 54 % 03/15/22 07:37 Glucose 156 mg/dL (65-100) H 03/15/22 07:37 Calcium 8.8 mg/dL (8.4-10.2) 03/15/22 07:37 Total Bilirubin 0.60 mg/dL (0.1-1.2) 03/04/22 02:51 AST 12 units/L (5-40) 03/04/22 02:51 ALT 6 units/L (7-56) L 03/04/22 02:51 Alkaline Phosphatase 91 units/L (35-129) 03/04/22 02:51 Troponin T < 0.010 ng/mL (0.00-0.029) 03/03/22 13:34 NT-Pro-B Natriuret Pep 59678 pg/mL (0-900) H 03/03/22 13:34 Total Protein 8.4 g/dL (6.3-8.2) H 03/04/22 02:51 Albumin 3.4 g/dL (3.9-5) L 03/04/22 02:51 Albumin/Globulin Ratio 0.7 % 03/04/22 02:51 Urine Color Yellow (Yellow) 03/04/22 17:35 Urine Turbidity Slightly-cloudy (Clear) 03/04/22 17:35 Urine pH 6.0 (5.0-7.0) 03/04/22 17:35 Ur Specific [place] 1.008 (1.003-1.030) 03/04/22 17:35 Urine Protein <15 mg/dl mg/dL (Negative) 03/04/22 17:35 Urine Glucose (UA) Neg mg/dL (Negative) 03/04/22 17:35 Urine Ketones Neg mg/dL (Negative) 03/04/22 17:35 Urine Blood Mod (Negative) 03/04/22 17:35 Urine Nitrite Neg (Negative) 03/04/22 17:35 Urine Bilirubin Neg (Negative) 03/04/22 17:35 Urine Urobilinogen < 2.0 mg/dL (<2.0) 03/04/22 17:35 Ur Leukocyte Esterase Lg (Negative) 03/04/22 17:35 Urine WBC (Auto) 11.0 /HPF (0.0-6.0) H 03/04/22 17:35 Urine RBC (Auto) 2.0 /HPF (0.0-6.0) 03/04/22 17:35 U Epithel Cells (Auto) 1.0 /HPF (0-13.0) 03/04/22 17:35 Urine Bacteria (Auto) 1+ /HPF (Negative) 03/04/22 17:35 Urine Mucus Few /HPF 03/04/22 17:35 Urine Yeast (Budding) Few /HPF 03/04/22 17:35 Urine Creatinine 41.2 mg/dL (0.1-20.0) H 03/04/22 17:35 Urine Sodium 126 mmol/L 03/04/22 17:35 Urine Total Protein 16 mg/dL (5-11.8) H 03/04/22 17:35 Coronavirus (PCR) Negative (Negative) 03/04/22 09:57 Gale/IV: Voiding Method External Female Catheter Active Medications - Current Medications Current Medications: Generic Name Dose Route Start Last Admin Trade Name Freq PRN Reason Stop Dose Admin Acetaminophen 650 mg 03/03/22 20:28 03/15/22 09:14 Acetaminophen 325 Mg Tab PO 650 mg Q4H PRN Administration Pain MILD(1-3)/Fever >100.5/HOFFMAN Cetirizine HCl 10 mg 03/12/22 15:00 03/15/22 09:14 Cetirizine 10 Mg Tab PO 10 mg QDAY VERN Administration Fluticasone Propionate 200 mcg 03/13/22 20:00 03/15/22 09:13 Fluticasone Propionate Nasal [place] 16 Gm NS 200 mcg QDAY VERN Administration Furosemide 40 mg 03/14/22 10:00 03/15/22 09:13 Furosemide 40 Mg/4 Ml Inj IV 40 mg DAILY VERN Administration Guaifenesin 600 mg 03/12/22 15:00 03/15/22 09:15 Guaifenesin Er 600 Mg Tab PO 600 mg BID VERN Administration Heparin Sodium (Porcine) 5,000 unit 03/04/22 14:00 03/15/22 13:50 Heparin 5,000 Unit/1 Ml Vial SUB-Q 5,000 unit Q8HR VERN Administration Methylprednisolone Sodium Succinate 60 mg 03/15/22 10:00 03/15/22 10:53 Methylprednisolone Sod Succinate 125 Mg/2 Ml Inj IV Not Given Q12HR [facility] Metoclopramide HCl 5 mg 03/11/22 12:00 Metoclopramide 10 Mg/2 Ml Inj IV Q6H PRN Nausea And Vomiting Morphine Sulfate 2 mg 03/03/22 20:28 Morphine 2 Mg/1 Ml Inj IV Q4H PRN Pain, Moderate (4-6) Ondansetron HCl 4 mg 03/03/22 20:28 Ondansetron 4 Mg/2 Ml Inj IV Q8H PRN Nausea And Vomiting Oxycodone/Acetaminophen 1 tab 03/03/22 20:28 03/09/22 12:06 Oxycodone /Acetaminophen 5-325mg Tab PO 1 tab Q6H PRN Administration Pain, Moderate (4-6) Pantoprazole Sodium 40 mg 03/12/22 15:00 03/15/22 09:15 Pantoprazole 40 Mg Tab PO 40 mg QDAC VERN Administration Polyethylene Glycol 17 gm 03/06/22 11:00 Polyethylene Glycol 3350 17 Gm Powder PO QDAY PRN Constipation Senna/Docusate Sodium 2 tab 03/06/22 11:00 03/15/22 10:54 Sennosides/Docusate Sodium 8.6/50 Mg Tab PO Not Given Q12H VERN Sildenafil Citrate 20 mg 03/11/22 14:00 03/15/22 13:50 Sildenafil 20 Mg Tab PO 20 mg TID VERN Administration Sodium Chloride 10 ml 03/03/22 22:00 03/15/22 09:15 Sodium Chloride 0.9% 10 Ml Flush Syringe IV 10 ml BID VERN Administration Sodium Chloride 10 ml 03/03/22 20:28 Sodium Chloride 0.9% 10 Ml Flush Syringe IV PRN PRN LINE FLUSH Nutrition/Malnutrition Assess - Dietary Evaluation Nutrition/Malnutrition Findings: Nutrition Notes Start: 03/11/22 14:05 Freq: Status: Active Protocol: Document 03/11/22 14:05 RAOUL (Rec: 03/11/22 14:21 RAOUL [id number]) Nutrition Notes Need for Assessment generated from: LOS Initial or Follow up Assessment Current Diagnosis Acute Kidney Injury,CKD(stage I-IV),Respiratory Failure, Malnutrition Other Pertinent Diagnosis HFpEF, Cor Pulmonale, UTI, Cystitis. Current Diet Cardiac -Renal- Diet (from D 03/11). Labs/Tests 03/11: BUN 108, Crea 2.5, Glu 141. Pertinent Medications 03/11: Nutritionally unremarkable. Height 5 ft 3 in Weight 134.7 kg [place] Body Weight (kg) 52.27 BMI 52.6 Intake Prior to Admission Good Weight change and time frame Pt denies having loss body weight [employer]. Weight Status Morbidly Obese Subjective/Other Information RD consult for LOS assessment. Pt's PO intake of meals has been Good (>75%) but fairly tolerated, according to ADL notes. I will prescribe renal modification to current diet to support Pt's RIN/CKD condition during LOS. Pt is on High-Flow Nasal Cannula, O2 saturation @ 96%, according to Physical Assessment History notes. Pt presents an > as signs of concern for skin risk at this time, according to Physical Assessment History notes. Percent of energy/protein needs met: Prescribed Cardiac -Renal- Diet provides for energy/ protein needs (2,230 Kcal/85 g ) during LOS. Burn Absent Trauma Absent GI Symptoms None Food Allergy Yes Skin Integrity/Comment Unspecified dryness and flakiness. Current % PO Good (75-100%) Minimum of two criteria No Fluid Accumulation N/A Reduced Band Saw Filer Strength N/A (non-severe) Protein-Calorie Malnutrition N\A #1 Nutrition Diagnosis Altered nutrition-related laboratory values Etiology RIN/CKD III. As Evidenced by Signs and Symptoms 03/11: BUN 108, Crea 2.5. Is patient on ventilator? No Is Patient Ambulatory and/or Out of Bed Yes REE-([place]low-St. Jeor-ambulatory/OOB) [ 2386.969 NUTR.[id number]] Kcal/Kg value to use for calculation 10 Approximate Energy Requirements Using 1347 kcal/Kg Calculation Used for Recommendations Kcal/kg Additional Notes Protein: 0.6-0.8 g/Kg AdjBW; 56-75 g/day. Fluids: 1 ml/Kcal, or as per MD. Nutrition Intervention Change Diet Order: Modify to Cardiac -Renal- Diet . Goal #1 Adjust the dietary intervention to better serve Pt's needs and clinical conditions during LOS. Additional Comments Continue monitoring food tolerance, %PO intake of meals , and BM.
[2022-03-16] MEDS: HEPARIN 5,000 UNIT/1 ML VIAL SUB-Q SCH ×3 (06:32→21:39)
[2022-03-16 08:44] LABS: Calcium 8.5 mg/dL (8.4-10.2)
--- NOTE | 2022-03-16 09:25 | Progress Note ---
Assessment and Plan - Patient Problems (1) Chronic kidney disease, stage 3b Current Visit: Yes Status: Acute Plan to address problem: RIN on CKD, secondary to Prerenal azotemia secondary to acute cardiorenal syndrome/diuresis. Steroids also contributing to the severe azotemia. pt however without acute uremic complication at present, no acute need for renal replacement therapy. given improved volume status, rising BUN, will transition patient to po torsemide (2) Acute exacerbation of congestive heart failure Current Visit: Yes Status: Acute Qualifiers: Heart failure type: combined systolic and diastolic Qualified Code(s): I50.43 - Acute on chronic combined systolic (congestive) and diastolic (congestive) heart failure Plan to address problem: Cardiology input appreciated. Preserved ejection fraction with severe pulmonary hypertension. CT chest showed cardiomegaly with interstitial edema. Incomplete records of intake/output. given improved volume status will transition patient to po torsemide (3) Acute respiratory failure with hypoxia Current Visit: Yes Status: Acute Plan to address problem: Multifactorial. 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 currently on BiPAP Objective - Vital Signs Vital signs: Vital Signs - 12hr 03/15/22 03/15/22 03/16/22 21:58 22:00 00:55 Temperature 96.4 F L Pulse Rate 77 66 Respiratory 23 18 Rate Blood Pressure 139/70 O2 Sat by Pulse 97 96 96 Oximetry 03/16/22 03/16/22 03/16/22 05:52 05:53 08:21 Temperature 97.8 F 97.5 F L Pulse Rate 64 54 L 62 Respiratory 20 18 Rate Blood Pressure 146/74 136/77 O2 Sat by Pulse 98 98 97 Oximetry - General Appearance General appearance: well-developed, well-nourished, appears stated age, obese EENT: ATNC, PERRL, mucous membranes moist Neck: no JVD Respiratory: Present: Clear to Ascultation Cardiology: regular, S1S2 Gastrointestinal: normal, obese Integumentary: no rash Neurologic: no focal deficit, alert and oriented x3, strength 5/5, CN 3-12 intact Psychiatric: mood/affect appropriate, cooperative - Lab 03/08/22 09:44 03/16/22 05:19 Most recent lab results ABG pH 7.316 pH Units (7.350-7.450) L 03/11/22 10:35 ABG pCO2 54.7 mm Hg 03/11/22 10:35 ABG pO2 81.0 mm Hg (80.0-90.0) 03/11/22 10:35 ABG HCO3 27.3 mmol/L (20.0-26.0) H 03/11/22 10:35 ABG O2 Saturation 95.0 % (95.0-99.0) 03/11/22 10:35 Calcium 8.5 mg/dL (8.4-10.2) 03/16/22 05:19 Urine Creatinine 41.2 mg/dL (0.1-20.0) H 03/04/22 17:35 Urine Sodium 126 mmol/L 03/04/22 17:35 Urine Total Protein 16 mg/dL (5-11.8) H 03/04/22 17:35 Medications & Allergies - Medications Allergies/Adverse Reactions: Allergies iodine Allergy (Verified 03/03/22 12:49) Anaphylaxis Penicillins Allergy (Verified 03/03/22 12:49) Anaphylaxis shellfish derived Allergy (Verified 03/03/22 12:49) Anaphylaxis Home Medications: Home Medications Medication Instructions Recorded Confirmed Last Taken Type Acetaminophen [Non-Aspirin Extra 500 mg PO Q8HR PRN 03/04/22 03/04/22 03/01/22 History Strength] Aspirin EC 325 mg PO 4XW 03/04/22 03/04/22 03/02/22 History Hydrocodone-Acetamin 2.5-325 5 - 325 mg PO Q6HR PRN 03/04/22 03/04/22 03/02/22 History Mucus Relief ER 600 mg PO BID 03/04/22 03/05/22 03/02/22 History Omeprazole 40 mg PO DAILY 03/04/22 03/05/22 03/02/22 History Phenazopyridine 200 mg PO TID 03/04/22 03/04/22 03/03/22 History Senna Plus Tablet 8.6 - 50 mg PO BID MDD CONSTIPATION 03/04/22 03/05/22 03/02/22 History Diclofenac Sodium ER 75 mg PO Q8HR 03/05/22 03/05/22 03/02/22 History Nifedipine ER 60 mg PO DAILY 03/05/22 03/05/22 03/02/22 History Vitamin D3 25 mg PO DAILY 03/05/22 03/05/22 03/02/22 History Active Medications: Generic Name Dose Route Start Last Admin Trade Name Freq PRN Reason Stop Dose Admin Acetaminophen 650 mg 03/03/22 20:28 03/15/22 09:14 Acetaminophen 325 Mg Tab PO 650 mg Q4H PRN Administration Pain MILD(1-3)/Fever >100.5/[place]OFFMAN Cetirizine HCl 10 mg 03/12/22 15:00 03/15/22 09:14 Cetirizine 10 Mg Tab PO 10 mg QDAY VERN Administration Fluticasone Propionate 200 mcg 03/13/22 20:00 03/15/22 09:13 Fluticasone Propionate Nasal [place] 16 Gm NS 200 mcg QDAY VERN Administration Guaifenesin 600 mg 03/12/22 15:00 03/15/22 21:54 Guaifenesin Er 600 Mg Tab PO 600 mg BID VERN Administration Heparin Sodium (Porcine) 7,500 unit 03/16/22 14:00 Heparin 5,000 Unit/1 Ml Vial SUB-Q Q8HR [facility] Methylprednisolone Sodium Succinate 60 mg 03/15/22 10:00 03/15/22 21:53 Methylprednisolone Sod Succinate 125 Mg/2 Ml Inj IV 60 mg Q12HR VERN Administration Metoclopramide HCl 5 mg 03/11/22 12:00 Metoclopramide 10 Mg/2 Ml Inj IV Q6H PRN Nausea And Vomiting Morphine Sulfate 2 mg 03/03/22 20:28 Morphine 2 Mg/1 Ml Inj IV Q4H PRN Pain, Moderate (4-6) Ondansetron HCl 4 mg 03/03/22 20:28 Ondansetron 4 Mg/2 Ml Inj IV Q8H PRN Nausea And Vomiting Oxycodone/Acetaminophen 1 tab 03/03/22 20:28 03/09/22 12:06 Oxycodone /Acetaminophen 5-325mg Tab PO 1 tab Q6H PRN Administration Pain, Moderate (4-6) Pantoprazole Sodium 40 mg 03/12/22 15:00 03/15/22 09:15 Pantoprazole 40 Mg Tab PO 40 mg QDAC VERN Administration Polyethylene Glycol 17 gm 03/06/22 11:00 Polyethylene Glycol 3350 17 Gm Powder PO QDAY PRN Constipation Senna/Docusate Sodium 2 tab 03/06/22 11:00 03/15/22 23:27 Sennosides/Docusate Sodium 8.6/50 Mg Tab PO 2 tab Q12H VERN Administration Sildenafil Citrate 20 mg 03/11/22 14:00 03/15/22 21:53 Sildenafil 20 Mg Tab PO 20 mg TID VERN Administration Sodium Chloride 10 ml 03/03/22 22:00 03/15/22 21:53 Sodium Chloride 0.9% 10 Ml Flush Syringe IV 10 ml BID VERN Administration Sodium Chloride 10 ml 03/03/22 20:28 Sodium Chloride 0.9% 10 Ml Flush Syringe IV PRN PRN LINE FLUSH Torsemide 40 mg 03/17/22 10:00 Torsemide 10 Mg Tab PO DAILY VERN
[2022-03-16] MEDS: guaiFENesin ER 600 MG TAB PO SCH ×2 (09:42→21:38)
[2022-03-16] MEDS: FLUTICASONE PROPIONATE NASAL SPRAY 16 GM NS SCH (09:43)
[2022-03-16] MEDS: SILDENAFIL 20 MG TAB PO SCH ×3 (09:43→21:38)
[2022-03-16] MEDS: CETIRIZINE 10 MG TAB PO SCH (09:43)
[2022-03-16] MEDS: methylPREDNISolone Sod Succinate 125 MG/2 ML INJ IV SCH ×2 (09:43→21:37)
[2022-03-16] MEDS: PANTOPRAZOLE 40 MG TAB PO SCH (09:43)
[2022-03-16] MEDS: SENNOSIDES/DOCUSATE SODIUM 8.6/50 MG TAB PO SCH ×2 (10:00→22:18)
[2022-03-16] MEDS: POLYETHYLENE GLYCOL 3350 17 GM POWDER PO SCH (10:01)
--- NOTE | 2022-03-16 12:53 | Progress Note ---
Assessment and Plan 71 y/o female with severe pulm htn and Eliseo with acute on chronic respiratory failure. 03/16/22: Will drop steroids to daily starting tomorrow. Continue TID Sildenafil. Reviewed Social work note. There is no debate about therapy. The only safe thing that can be administered at this time is sildenafil three times daily which she is tolerating. No further therapy would be started with [facility] number. I reviewed a CM note from 2 days prior that states [facility] would be willing to accept what is documented as 30 liters of flow. Patient is now on 20. Would continue daily net negative state as long as blood pressure and renal function will allow. Continue to wean FiO2 as tolerated for sats >88% 03/15/22: Decreased steroids to BID. Continue Sildenafil at current dosing. Continue daily net negative state if possible and wean FiO2 for sats >88%. Still feel patient would benefit from right and left heart cath if able to be weaned off HFNC and able to lie flat. 03/09/22: Without an exact cause for her Pulm HTN, would be difficult to say if there is anything else that could be done for her severe pulm HTN. If this is truly worsening of lung disease, given the rate that it has happened, even treatment of COPD would not improve quality of life significantly. If she has developed type 1 pulmonary HTN, she would need at least 2-3 drug therapy and she may not tolerate this as well given her age and current clinical status. A right and left heart cath would be necessary before determination of this degree of therapy. Do not disagree with hospice referral again. Has been on steroid therapy less than 24 hours. Would continue to see if any benefit. Prognosis still remains guarded. 03/08/22: Last time this patient was seen in our office was 2015. At that time she only had mild COPD. Unable to obtain repeat divina at this time. She did not smoke since being on hospice care and was recently discharged secondary to lack of further decline (although one could argue for it now). Will attempt steroid therapy to see if this improves oxygen requirement, however as stated earlier, patient may benefit from right heart cath with drug study if no improvement on steroids. V/Q done but was not ordered looking for acute PE but more for concern for CTEPH. Guarded prognosis. 03/07/22: No new recs. Will find old office notes today to see the last time we saw this patient. 03/06/22: CXR read by rads suggest unchanged edema. Agree with continued diuresis and fluid restriction. Wean Vent for sats >88%. Continue NIV therapy at night 1. Cardiology following. This degree of Pulm HTN is not seen with just ELISEO alone, especially in someone who is compliant with therapy. Defer to cards but would consider right heart cath if not already done previously 2. Continue bipap therapy at night as well as PRN during the day. Patient does not know her settings for her machine at home and my office did not manipulate these numbers last. Will titrate sat of >88% and comfort 3. Agree with continued diuresis, CXR shows continued vascular congestion, maybe slightly better, maybe 4. Wean FiO2 for sats >88% Subjective Date of service: 03/16/22 Principal diagnosis: Hypoxic respiratory failure Interval history: still on HFNC. Now on 20 liters from 25 yesterday. Good sats. Reviewed social work note from yesterday. Objective Vital Signs - 12hr 03/16/22 03/16/22 03/16/22 00:55 05:52 05:53 Temperature 96.4 F L 97.8 F Pulse Rate 66 64 54 L Respiratory 18 20 Rate Blood Pressure 139/70 146/74 O2 Sat by Pulse 96 98 98 Oximetry 03/16/22 03/16/22 03/16/22 08:00 08:21 10:00 Temperature 97.5 F L Pulse Rate 62 Respiratory 18 Rate Blood Pressure 136/77 O2 Sat by Pulse 97 97 94 Oximetry Constitutional: no acute distress, alert, other (obese) Eyes: non-icteric ENT: oropharynx moist Neck: supple, other (obese) Effort: mildly labored Ascultation: Bilateral: diminished breath sounds, rales Percussion: Bilateral: not dull Cardiovascular: regular rate and rhythm (no mrg) Gastrointestinal: normoactive bowel sounds, soft, non-tender, non-distended Integumentary: normal Extremities: no cyanosis, no edema, pink and warm Neurologic: normal mental status, non-focal exam, pupils equal and round Psychiatric: mood appropriate, affect normal CBC and BMP: 03/08/22 09:44 03/16/22 05:19 ABG, PT/INR, D-dimer: ABG ABG pH 7.316 pH Units (7.350-7.450) L 03/11/22 10:35 ABG pCO2 54.7 mm Hg 03/11/22 10:35 ABG pO2 81.0 mm Hg (80.0-90.0) 03/11/22 10:35 ABG O2 Saturation 95.0 % (95.0-99.0) 03/11/22 10:35 Abnormal lab findings: Abnormal Labs 03/03/22 03/03/22 03/03/22 13:34 13:34 13:34 RDW 16.1 H Lymph % (Auto) 9.7 L Lymph # (Auto) 0.8 L Seg Neutrophils % 84.6 H ABG pH ABG HCO3 Oxyhemoglobin Sodium Potassium Chloride BUN 47 H Creatinine 1.7 H Glucose 101 H ALT NT-Pro-B Natriuret Pep 01945 H Total Protein 9.1 H Albumin 3.5 L Urine WBC (Auto) Urine Creatinine Urine Total Protein 03/04/22 03/04/22 03/04/22 02:51 03:05 17:35 RDW 16.0 H Lymph % (Auto) 8.9 L Lymph # (Auto) 0.8 L Seg Neutrophils % 84.1 H ABG pH ABG HCO3 Oxyhemoglobin Sodium Potassium Chloride BUN 46 H Creatinine 1.8 H Glucose 119 H ALT 6 L NT-Pro-B Natriuret Pep Total Protein 8.4 H Albumin 3.4 L Urine WBC (Auto) 11.0 H Urine Creatinine Urine Total Protein 03/04/22 03/05/22 03/05/22 17:35 12:08 15:18 RDW Lymph % (Auto) Lymph # (Auto) Seg Neutrophils % ABG pH ABG HCO3 Oxyhemoglobin Sodium Potassium 6.4 H* D Chloride BUN 55 H 55 H Creatinine 2.0 H 2.0 H Glucose 120 H 116 H ALT NT-Pro-B Natriuret Pep Total Protein Albumin Urine WBC (Auto) Urine Creatinine 41.2 H Urine Total Protein 16 H 03/06/22 03/08/22 03/08/22 05:25 09:44 09:44 RDW 15.9 H Lymph % (Auto) 12.2 L Lymph # (Auto) 0.9 L Seg Neutrophils % 79.5 H ABG pH ABG HCO3 Oxyhemoglobin Sodium Potassium Chloride BUN 58 H 69 H Creatinine 2.1 H 2.3 H Glucose 103 H ALT NT-Pro-B Natriuret Pep Total Protein Albumin Urine WBC (Auto) Urine Creatinine Urine Total Protein 03/08/22 03/09/22 03/10/22 14:36 05:43 07:16 RDW Lymph % (Auto) Lymph # (Auto) Seg Neutrophils % ABG pH ABG HCO3 Oxyhemoglobin Sodium Potassium 5.3 H D Chloride BUN 70 H 82 H 95 H Creatinine 2.4 H 2.5 H 2.3 H Glucose 125 H 149 H 141 H ALT NT-Pro-B Natriuret Pep Total Protein Albumin Urine WBC (Auto) Urine Creatinine Urine Total Protein 03/11/22 03/11/22 03/12/22 06:44 10:35 06:27 RDW Lymph % (Auto) Lymph # (Auto) Seg Neutrophils % ABG pH 7.316 L ABG HCO3 27.3 H Oxyhemoglobin 94.0 L Sodium Potassium Chloride BUN 108 H 113 H Creatinine 2.5 H 2.4 H Glucose 141 H 216 H ALT NT-Pro-B Natriuret Pep Total Protein Albumin Urine WBC (Auto) Urine Creatinine Urine Total Protein 03/13/22 03/14/22 03/15/22 10:19 09:26 07:37 RDW Lymph % (Auto) Lymph # (Auto) Seg Neutrophils % ABG pH ABG HCO3 Oxyhemoglobin Sodium 136 L Potassium Chloride 97.3 L BUN 121 H 131 H 134 H Creatinine 2.4 H 2.6 H 2.5 H Glucose 279 H 146 H 156 H ALT NT-Pro-B Natriuret Pep Total Protein Albumin Urine WBC (Auto) Urine Creatinine Urine Total Protein 03/16/22 05:19 RDW Lymph % (Auto) Lymph # (Auto) Seg Neutrophils % ABG pH ABG HCO3 Oxyhemoglobin Sodium Potassium Chloride BUN 135 H Creatinine 2.5 H Glucose 147 H ALT NT-Pro-B Natriuret Pep Total Protein Albumin Urine WBC (Auto) Urine Creatinine Urine Total Protein
--- NOTE | 2022-03-16 13:31 | Progress Note ---
Assessment and Plan - Patient Problems (1) Interstitial edema Current Visit: Yes Status: Acute Plan to address problem: 71-year-old woman with morbid obesity, obstructive sleep apnea, hypertension, presents with shortness of breath and chest x-ray evidence of mild to moderate interstitial edema. Previous invasive cardiac work-up 10 years ago showed no significant coronary artery disease. Prior left ventricular systolic function assessment was well-preserved at 50%. Echocardiogram on this presentation demonstrates well-preserved left ventricular systolic function. Major finding on the echocardiogram is the presence of severe cor pulmonale with dilated right heart chambers, moderate to severe tricuspid regurgitation and severe pulmonary hypertension with pulmonary artery systolic pressures approaching systemic levels. Chronic lung disease appears to be primary etiology for dyspnea, respiratory insufficiency and hypoxemia. Subjective Date of service: 03/16/22 Principal diagnosis: Hypoxic respiratory failure Interval history: Patient is comfortable, no cardiac complaints, no new cardiac events reported. Patient is on nasal oxygen. On panel monitor, there is a stable sinus rhythm at 90. Objective Vital Signs Temp Pulse Resp BP Pulse Ox 03/16/22 10:00 94 03/16/22 08:21 97.5 F L 62 18 136/77 97 03/16/22 08:00 97 03/16/22 05:53 54 L 98 03/16/22 05:52 97.8 F 64 20 146/74 98 03/16/22 00:55 96.4 F L 66 18 139/70 96 03/15/22 22:00 96 03/15/22 21:58 77 23 97 03/15/22 20:11 98.1 F 83 20 126/60 92 03/15/22 20:00 95 03/15/22 15:47 98.2 F 84 20 133/70 92 03/15/22 14:00 94 - Physical Examination General: No Apparent Distress HEENT: Positive: PERRL Neck: Positive: neck supple Cardiac: Positive: Reg Rate and Rhythm Lungs: Positive: Decreased Breath Sounds Neuro: Positive: Grossly Intact Abdomen: Positive: Soft Skin: Positive: Clear Extremities: Present: edema (Minimal) - Labs and Meds Comprehensive Metabolic Panel 03/16/22 Range/Units 05:19 Sodium 142 (137-145) mmol/L Potassium 4.4 (3.6-5.0) mmol/L Chloride 103.5 (98-107) mmol/L Carbon Dioxide 25 (22-30) mmol/L BUN 135 H (7-17) mg/dL Creatinine 2.5 H (0.6-1.2) mg/dL Glucose 147 H (65-100) mg/dL Calcium 8.5 (8.4-10.2) mg/dL - Imaging and Cardiology EKG: report reviewed (Sinus tachycardia no acute ST-T wave changes)
--- NOTE | 2022-03-16 16:34 | Progress Note ---
Assessment and Plan Assessment and plan: #Severe pulmonary arterial hypertension #Acute on chronic hypoxic respiratory failure-improving - baseline oxygen requirements: 5 L nasal cannula - supplemental oxygen: HFNC 20 L / 45% FiO2; will attempt to wean as tolerated Pulmonology following; assistance appreciated - Continue protocol: continue pulse oximetry, wean oxygen as tolerated, ordered incentive spirometry and educated patient on how to use it and its importance - Unremarkable LE dopplers. V/Q scan low probability for PE - CTA of the chest: intersitial edema and central pulmonary arterial enlargement suggest of PAH - continue IV steroids; may benefit from R + L heart cath for further evaluation - Patient is on sildenafil #Left heel ulcer Concern for acute versus chronic osteomyelitis General surgery consulted; pending recs. Follow patient is currently on high flow nasal cannula, making it difficult for the patient to obtain CT versus MRI of lower extremity to evaluate for osteomyelitis. Infectious disease consulted for possible presumed treatment of chronic osteomyelitis. #Acute on chronic diastolic heart failureresolved #Cor pulmonale - Continue CHF exacerbation protocol: Telemetry, Strict I/O, monitor urine output every shift, daily weights, afterload reduction, low-sodium diet, and fluid restriction of approximately 1.5 mL/day - continue PO diuretics - ProBNP on admission: 11,875 - Cardiology following; appreciate recs - TTE (03/04/2022) revealing EF 50-55% with normal-sized LV, lower limits of normal LV systolic function, borderline concentric LVH, severely dilated RV, severely reduced RV systolic function, mildly dilated LA, severely dilated RA, RVSP >95 mmHg, and severe pulmonary hypertension. -Patient is on IV Lasix 40 mg daily #ESBL UTI/cystitis without hematuriaresolved Urinalysis revealing large leukocyte esterase, WBC 11, 1+ bacteria, few budding yeast. - Macrobid discontinued due to worsening renal function, ertapenem x3 doses started per ID recs Infectious disease following, assistance appreciated Continue precautions #Atypical chest painruled out Negative troponin x2 Likely secondary to volume overload in the setting of acute heart failure. #RIN on CKD stage IIIstable SCr 2.4 today Renally dose meds and avoid nephrotoxic drugs Nephrology following; appreciate recs #Mild protein caloric malnutrition Albumin 3.4 Continue dietary supplementation #Morbid obesity #Weight loss counseling #Exercise counseling - BMI 53.1 - Counseled patient on the importance of weight loss, incorporating exercise, and dietary changes (lean meats, fresh fruits and vegetables, and water intake). Patient expresses understanding. - Time: +15 min Critical Care Billing: The high probability of a clinically significant, sudden or life threatening deterioration of the [respiratory] system(s) required my full and direct attention, intervention and personal management. The aggregate critical care time was [60] minutes. This time is in addition to time spent performing reported procedures but includes the following: [x] Data Review and interpretation [x] Patient assessment and monitoring of vital signs [x] Documentation [x] Medication orders and management Disposition Plan: Continue medical management Total Time Spent with Patient (Minutes): 45 minutes History Interval history: No acute events overnight. Hospitalist Physical - Constitutional Vitals: Temp Pulse Resp BP Pulse Ox 97.5 F L 62 18 136/77 93 03/16/22 08:21 03/16/22 08:21 03/16/22 08:21 03/16/22 08:21 03/16/22 14:00 General appearance: Present: mild distress, well-nourished, obese - EENT Eyes: Present: PERRL, EOM intact ENT: hearing intact, clear oral mucosa, dentition normal - Neck Neck: Present: supple, normal ROM - Respiratory Respiratory effort: normal Respiratory: bilateral: diminished (on HFNC 20 L/45% FiO2) - Cardiovascular Rhythm: regular Heart Sounds: Present: S1 & S2 - Extremities Extremities: no ischemia, pulses intact, pulses symmetrical, No edema, normal temperature, normal color Extremity abnormal: ulceration (Deep ulceration of left heel with granulation tissue present at the base) Peripheral Pulses: within normal limits - Abdominal General gastrointestinal: soft, non-tender, non-distended, normal bowel sounds - Integumentary Integumentary: Present: clear, warm, dry - Psychiatric Psychiatric: appropriate mood/affect, intact judgment & insight, cooperative - Neurologic Neurologic: CNII-XII intact - Allied Health Allied health notes reviewed: nursing HEART Score - HEART Score Age: > 65 Risk factors: 1-2 risk factors Troponin: Troponin T < 0.010 ng/mL (0.00-0.029) 03/03/22 13:34 Troponin: < normal limit - Critical Actions Critical Actions: 4-6 pts:12-16.6% risk of adverse cardiac event. Should be admitted Results - Labs CBC & Chem 7: 03/08/22 09:44 07/27/22 05:19 Labs: Laboratory Last Values WBC 7.6 K/mm3 (4.5-11.0) 03/08/22 09:44 RBC 4.57 M/mm3 (3.65-5.03) 03/08/22 09:44 Hgb 13.3 gm/dl (10.1-14.3) 03/08/22 09:44 Hct 41.7 % (30.3-42.9) 03/08/22 09:44 MCV 91 fl (79-97) 03/08/22 09:44 MCH 29 pg (28-32) 03/08/22 09:44 MCHC 32 % (30-34) 03/08/22 09:44 RDW 15.9 % (13.2-15.2) H 03/08/22 09:44 Plt Count 207 K/mm3 (140-440) 03/08/22 09:44 Lymph % (Auto) 12.2 % (13.4-35.0) L 03/08/22 09:44 [place] % (Auto) 4.6 % (0.0-7.3) 03/08/22 09:44 Eos % (Auto) 3.0 % (0.0-4.3) 03/08/22 09:44 Baso % (Auto) 0.7 % (0.0-1.8) 03/08/22 09:44 Lymph # (Auto) 0.9 K/mm3 (1.2-5.4) L 03/08/22 09:44 [place] # (Auto) 0.4 K/mm3 (0.0-0.8) 03/08/22 09:44 Eos # (Auto) 0.2 K/mm3 (0.0-0.4) 03/08/22 09:44 Baso # (Auto) 0.1 K/mm3 (0.0-0.1) 03/08/22 09:44 Seg Neutrophils % 79.5 % (40.0-70.0) H 03/08/22 09:44 Seg Neutrophils # 6.0 K/mm3 (1.8-7.7) 03/08/22 09:44 ABG pH 7.316 pH Units (7.350-7.450) L 03/11/22 10:35 ABG pCO2 54.7 mm Hg 03/11/22 10:35 ABG pO2 81.0 mm Hg (80.0-90.0) 03/11/22 10:35 ABG HCO3 27.3 mmol/L (20.0-26.0) H 03/11/22 10:35 ABG O2 Saturation 95.0 % (95.0-99.0) 03/11/22 10:35 ABG O2 Content 18.1 (0.0-44) 03/11/22 10:35 ABG Base Excess 0.2 mmol/L (-2.0-3.0) 03/11/22 10:35 ABG Hemoglobin 13.7 gm/dl (12.0-16.0) 03/11/22 10:35 ABG Carboxyhemoglobin 0.7 % (0.0-5.0) 03/11/22 10:35 ABG Methemoglobin 0.4 % (0.0-1.5) 03/11/22 10:35 Oxyhemoglobin 94.0 % (95.0-99.0) L 03/11/22 10:35 FiO2 90 % 03/11/22 10:35 Sodium 142 mmol/L (137-145) 03/16/22 05:19 Potassium 4.4 mmol/L (3.6-5.0) 03/16/22 05:19 Chloride 103.5 mmol/L (98-107) 03/16/22 05:19 Carbon Dioxide 25 mmol/L (22-30) 03/16/22 05:19 Anion Gap 18 mmol/L 03/16/22 05:19 BUN 135 mg/dL (7-17) H 03/16/22 05:19 Creatinine 2.5 mg/dL (0.6-1.2) H 03/16/22 05:19 Estimated GFR 23 ml/min 03/16/22 05:19 BUN/Creatinine Ratio 54 % 03/16/22 05:19 Glucose 147 mg/dL (65-100) H 03/16/22 05:19 Calcium 8.5 mg/dL (8.4-10.2) 03/16/22 05:19 Total Bilirubin 0.60 mg/dL (0.1-1.2) 03/04/22 02:51 AST 12 units/L (5-40) 03/04/22 02:51 ALT 6 units/L (7-56) L 03/04/22 02:51 Alkaline Phosphatase 91 units/L (35-129) 03/04/22 02:51 Troponin T < 0.010 ng/mL (0.00-0.029) 03/03/22 13:34 NT-Pro-B Natriuret Pep 36837 pg/mL (0-900) H 03/03/22 13:34 Total Protein 8.4 g/dL (6.3-8.2) H 03/04/22 02:51 Albumin 3.4 g/dL (3.9-5) L 03/04/22 02:51 Albumin/Globulin Ratio 0.7 % 03/04/22 02:51 Urine Color Yellow (Yellow) 03/04/22 17:35 Urine Turbidity Slightly-cloudy (Clear) 03/04/22 17:35 Urine pH 6.0 (5.0-7.0) 03/04/22 17:35 Ur Specific [place] 1.008 (1.003-1.030) 03/04/22 17:35 Urine Protein <15 mg/dl mg/dL (Negative) 03/04/22 17:35 Urine Glucose (UA) Neg mg/dL (Negative) 03/04/22 17:35 Urine Ketones Neg mg/dL (Negative) 03/04/22 17:35 Urine Blood Mod (Negative) 03/04/22 17:35 Urine Nitrite Neg (Negative) 03/04/22 17:35 Urine Bilirubin Neg (Negative) 03/04/22 17:35 Urine Urobilinogen < 2.0 mg/dL (<2.0) 03/04/22 17:35 Ur Leukocyte Esterase Lg (Negative) 03/04/22 17:35 Urine WBC (Auto) 11.0 /HPF (0.0-6.0) H 03/04/22 17:35 Urine RBC (Auto) 2.0 /HPF (0.0-6.0) 03/04/22 17:35 U Epithel Cells (Auto) 1.0 /HPF (0-13.0) 03/04/22 17:35 Urine Bacteria (Auto) 1+ /HPF (Negative) 03/04/22 17:35 Urine Mucus Few /HPF 03/04/22 17:35 Urine Yeast (Budding) Few /HPF 03/04/22 17:35 Urine Creatinine 41.2 mg/dL (0.1-20.0) H 03/04/22 17:35 Urine Sodium 126 mmol/L 03/04/22 17:35 Urine Total Protein 16 mg/dL (5-11.8) H 03/04/22 17:35 Coronavirus (PCR) Negative (Negative) 03/04/22 09:57 Gale/IV: Voiding Method External Female Catheter Active Medications - Current Medications Current Medications: Generic Name Dose Route Start Last Admin Trade Name Freq PRN Reason Stop Dose Admin Acetaminophen 650 mg 03/03/22 20:28 03/15/22 09:14 Acetaminophen 325 Mg Tab PO 650 mg Q4H PRN Administration Pain MILD(1-3)/Fever >100.5/HOFFMAN Cetirizine HCl 10 mg 03/12/22 15:00 03/16/22 09:43 Cetirizine 10 Mg Tab PO 10 mg QDAY VERN Administration Fluticasone Propionate 200 mcg 03/13/22 20:00 03/16/22 09:43 Fluticasone Propionate Nasal [place] 16 Gm NS 200 mcg QDAY VERN Administration Guaifenesin 600 mg 03/12/22 15:00 03/16/22 09:42 Guaifenesin Er 600 Mg Tab PO 600 mg BID VERN Administration Heparin Sodium (Porcine) 7,500 unit 03/16/22 14:00 03/16/22 15:04 Heparin 5,000 Unit/1 Ml Vial SUB-Q 7,500 unit Q8HR VERN Administration Methylprednisolone Sodium Succinate 60 mg 03/15/22 10:00 03/16/22 09:43 Methylprednisolone Sod Succinate 125 Mg/2 Ml Inj IV 60 mg Q12HR VERN Administration Metoclopramide HCl 5 mg 03/11/22 12:00 Metoclopramide 10 Mg/2 Ml Inj IV Q6H PRN Nausea And Vomiting Morphine Sulfate 2 mg 03/03/22 20:28 Morphine 2 Mg/1 Ml Inj IV Q4H PRN Pain, Moderate (4-6) Ondansetron HCl 4 mg 03/03/22 20:28 Ondansetron 4 Mg/2 Ml Inj IV Q8H PRN Nausea And Vomiting Oxycodone/Acetaminophen 1 tab 03/03/22 20:28 03/09/22 12:06 Oxycodone /Acetaminophen 5-325mg Tab PO 1 tab Q6H PRN Administration Pain, Moderate (4-6) Pantoprazole Sodium 40 mg 03/12/22 15:00 03/16/22 09:43 Pantoprazole 40 Mg Tab PO 40 mg QDAC VERN Administration Polyethylene Glycol 17 gm 03/16/22 10:00 03/16/22 10:01 Polyethylene Glycol 3350 17 Gm Powder PO Not Given QDAY VERN Senna/Docusate Sodium 2 tab 03/06/22 11:00 03/16/22 10:00 Sennosides/Docusate Sodium 8.6/50 Mg Tab PO 2 tab Q12H VERN Administration Sildenafil Citrate 20 mg 03/11/22 14:00 03/16/22 15:04 Sildenafil 20 Mg Tab PO 20 mg TID VERN Administration Sodium Chloride 10 ml 03/03/22 22:00 03/16/22 09:44 Sodium Chloride 0.9% 10 Ml Flush Syringe IV 10 ml BID VERN Administration Sodium Chloride 10 ml 03/03/22 20:28 Sodium Chloride 0.9% 10 Ml Flush Syringe IV PRN PRN LINE FLUSH Torsemide 40 mg 03/17/22 10:00 Torsemide 10 Mg Tab PO DAILY VERN Nutrition/Malnutrition Assess - Dietary Evaluation Nutrition/Malnutrition Findings: Nutrition Notes Start: 03/11/22 14:05 Freq: Status: Active Protocol: Document 03/11/22 14:05 RAOUL (Rec: 03/11/22 14:21 RAOUL [id number]) Nutrition Notes Need for Assessment generated from: LOS Initial or Follow up Assessment Current Diagnosis Acute Kidney Injury,CKD(stage I-IV),Respiratory Failure, Malnutrition Other Pertinent Diagnosis HFpEF, Cor Pulmonale, UTI, Cystitis. Current Diet Cardiac -Renal- Diet (from D 03/11). Labs/Tests 03/11: BUN 108, Crea 2.5, Glu 141. Pertinent Medications 03/11: Nutritionally unremarkable. 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 Weight Status Morbidly Obese Subjective/Other Information RD consult for LOS assessment. Pt's PO intake of meals has been Good (>75%) but fairly tolerated, according to ADL notes. I will prescribe renal modification to current diet to support Pt's RIN/CKD condition during LOS. Pt is on High-Flow Nasal Cannula, O2 saturation @ 96%, according to Physical Assessment History notes. Pt presents an > as signs of concern for skin risk at this time, according to Physical Assessment History notes. Percent of energy/protein needs met: Prescribed Cardiac -Renal- Diet provides for energy/ protein needs (2,230 Kcal/85 g ) during LOS. Burn Absent Trauma Absent GI Symptoms None Food Allergy Yes Skin Integrity/Comment Unspecified dryness and flakiness. Current % PO Good (75-100%) Minimum of two criteria No Fluid Accumulation N/A Reduced [place] Developer Strength N/A (non-severe) Protein-Calorie Malnutrition N\A #1 Nutrition Diagnosis Altered nutrition-related laboratory values Etiology RIN/CKD III. As Evidenced by Signs and Symptoms 03/11: BUN 108, Crea 2.5. Is patient on ventilator? No Is Patient Ambulatory and/or Out of Bed Yes REE-([place]-St. Jeor-ambulatory/OOB) [ 2386.969 NUTR.[id number]] Kcal/Kg value to use for calculation 10 Approximate Energy Requirements Using 1347 kcal/Kg Calculation Used for Recommendations Kcal/kg Additional Notes Protein: 0.6-0.8 g/Kg AdjBW; 56-75 g/day. Fluids: 1 ml/Kcal, or as per MD. Nutrition Intervention Change Diet Order: Modify to Cardiac -Renal- Diet . Goal #1 Adjust the dietary intervention to better serve Pt's needs and clinical conditions during LOS. Additional Comments Continue monitoring food tolerance, %PO intake of meals , and BM.
[2022-03-17 04:51] LABS: Calcium 8.5 mg/dL (8.4-10.2)
[2022-03-17] MEDS: HEPARIN 5,000 UNIT/1 ML VIAL SUB-Q SCH ×3 (07:26→21:48)
--- NOTE | 2022-03-17 10:39 | XRay Report ---
LEFT FOOT 3 VIEWS INDICATION / CLINICAL INFORMATION: left heel wound COMPARISON: None available. FINDINGS: BONES and JOINT(S): No acute fracture or subluxation. No significant arthritis. Cortical irregularity is noted along the inferior aspect of the calcaneus. SOFT TISSUES: A large wound is seen along the plantar aspect of the heel measuring up to 4.7 cm with associated edema. Small foci of soft tissue gas are seen adjacent to the wound. ADDITIONAL FINDINGS: None. IMPRESSION: 1. Large left heel wound with irregularity of the calcaneus, concerning for osteomyelitis. LEFT ANKLE 2 VIEWS INDICATION / CLINICAL INFORMATION: left heel wound COMPARISON: None available. FINDINGS: BONES and JOINT(S): No acute fracture or subluxation. No significant arthritis. Cortical irregularity is noted along the inferior aspect of the calcaneus. SOFT TISSUES: A large wound is seen along the plantar aspect of the heel measuring up to 4.7 cm with associated edema. Small foci of soft tissue gas are seen adjacent to the wound. ADDITIONAL FINDINGS: None. IMPRESSION: 1. Large left heel wound with irregularity of the calcaneus, concerning for osteomyelitis. Signer Name: Sancho Lopes MD Signed: 03/17/2022 10:35 AM Workstation Name: [id number]
[2022-03-17] MEDS: TORSEMIDE 10 MG TAB PO SCH (10:43)
[2022-03-17] MEDS: SILDENAFIL 20 MG TAB PO SCH ×3 (10:44→21:48)
[2022-03-17] MEDS: FLUTICASONE PROPIONATE NASAL SPRAY 16 GM NS SCH (10:44)
[2022-03-17] MEDS: methylPREDNISolone Sod Succinate 125 MG/2 ML INJ IV SCH ×2 (10:44→21:49)
[2022-03-17] MEDS: CETIRIZINE 10 MG TAB PO SCH (10:44)
[2022-03-17] MEDS: guaiFENesin ER 600 MG TAB PO SCH ×2 (10:44→21:47)
[2022-03-17] MEDS: PANTOPRAZOLE 40 MG TAB PO SCH (10:45)
[2022-03-17] MEDS: POLYETHYLENE GLYCOL 3350 17 GM POWDER PO SCH (10:52)
--- NOTE | 2022-03-17 11:24 | Progress Note ---
Assessment and Plan - Patient Problems (1) Interstitial edema Current Visit: Yes Status: Acute Plan to address problem: 71-year-old woman with morbid obesity, obstructive sleep apnea, hypertension, presents with shortness of breath and chest x-ray evidence of mild to moderate interstitial edema. Previous invasive cardiac work-up 10 years ago showed no significant coronary artery disease. Prior left ventricular systolic function assessment was well-preserved at 50%. Echocardiogram on this presentation demonstrates well-preserved left ventricular systolic function. Major finding on the echocardiogram is the presence of severe cor pulmonale with dilated right heart chambers, moderate to severe tricuspid regurgitation and severe pulmonary hypertension with pulmonary artery systolic pressures approaching systemic levels. Chronic lung disease appears to be primary etiology for dyspnea, respiratory insufficiency and hypoxemia. Subjective Date of service: 03/17/22 Principal diagnosis: Hypoxic respiratory failure Interval history: Patient is comfortable, no cardiac complaints, no new cardiac events reported. Patient is on nasal oxygen. 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 Objective Vital Signs Temp Pulse Resp BP BP Pulse Ox 03/17/22 08:55 96 03/17/22 04:02 97.3 F L 61 24 146/79 95 03/17/22 03:50 24 03/17/22 02:00 95 03/16/22 23:57 97.3 F L 68 19 134/78 97 03/16/22 23:21 96 03/16/22 21:00 79 22 96 03/16/22 20:00 94 03/16/22 19:46 97.7 F 18 149/61 93 03/16/22 16:01 98.1 F 80 18 139/64 91 03/16/22 14:00 93 - Physical Examination General: No Apparent Distress HEENT: Positive: PERRL Neck: Positive: neck supple Cardiac: Positive: Reg Rate and Rhythm Lungs: Positive: Decreased Breath Sounds Neuro: Positive: Grossly Intact Abdomen: Positive: Soft Skin: Positive: Clear Extremities: Present: edema (Minimal) - Labs and Meds Comprehensive Metabolic Panel 03/17/22 Range/Units 04:00 Sodium 143 (137-145) mmol/L Potassium 4.3 (3.6-5.0) mmol/L Chloride 105.5 (98-107) mmol/L Carbon Dioxide 24 (22-30) mmol/L BUN 129 H (7-17) mg/dL Creatinine 2.2 H (0.6-1.2) mg/dL Glucose 182 H (65-100) mg/dL Calcium 8.5 (8.4-10.2) mg/dL - Imaging and Cardiology EKG: report reviewed (Sinus tachycardia no acute ST-T wave changes)
[2022-03-17] MEDS: SENNOSIDES/DOCUSATE SODIUM 8.6/50 MG TAB PO SCH ×2 (12:30→22:03)
--- NOTE | 2022-03-17 12:33 | Progress Note ---
Assessment and Plan 71 y/o female with severe pulm htn and Eliseo with acute on chronic respiratory failure. /03/17/22: Given increase in O2 requirement, will hold on dropping steroids today. Otherwise, same recs as the day before. 03/16/22: Will drop steroids to daily starting tomorrow. Continue TID Sildenafil. Reviewed Social work note. There is no debate about therapy. The only safe thing that can be administered at this time is sildenafil three times daily which she is tolerating. No further therapy would be started with [facility] number. I reviewed a CM note from 2 days prior that states [facility] would be willing to accept what is documented as 30 liters of flow. Patient is now on 20. Would continue daily net negative state as long as blood pressure and renal function will allow. Continue to wean FiO2 as tolerated for sats >88% 03/15/22: Decreased steroids to BID. Continue Sildenafil at current dosing. Continue daily net negative state if possible and wean FiO2 for sats >88%. Still feel patient would benefit from right and left heart cath if able to be weaned off HFNC and able to lie flat. 03/09/22: Without an exact cause for her Pulm HTN, would be difficult to say if there is anything else that could be done for her severe pulm HTN. If this is truly worsening of lung disease, given the rate that it has happened, even tr eatment of COPD would not improve quality of life significantly. If she has developed type 1 pulmonary HTN, she would need at least 2-3 drug therapy and she may not tolerate this as well given her age and current clinical status. A right and left heart cath would be necessary before determination of this degree of therapy. Do not disagree with hospice referral again. Has been on steroid therapy less than 24 hours. Would continue to see if any benefit. Prognosis still remains guarded. 03/08/22: Last time this patient was seen in our office was 2015. At that time she only had mild COPD. Unable to obtain repeat divina at this time. She did not smoke since being on hospice care and was recently discharged secondary to lack of further decline (although one could argue for it now). Will attempt steroid therapy to see if this improves oxygen requirement, however as stated earlier, patient may benefit from right heart cath with drug study if no improvement on steroids. V/Q done but was not ordered looking for acute PE but more for concern for CTEPH. Guarded prognosis. 03/07/22: No new recs. Will find old office notes today to see the last time we saw this patient. 03/06/22: CXR read by rads suggest unchanged edema. Agree with continued diuresis and fluid restriction. Wean Vent for sats >88%. Continue NIV therapy at night 1. Cardiology following. This degree of Pulm HTN is not seen with just ELISEO alone, especially in someone who is compliant with therapy. Defer to cards but would consider right heart cath if not already done previously 2. Continue bipap therapy at night as well as PRN during the day. Patient does not know her settings for her machine at home and my office did not manipulate these numbers last. Will titrate sat of >88% and comfort 3. Agree with continued diuresis, CXR shows continued vascular congestion, maybe slightly better, maybe 4. Wean FiO2 for sats >88% Subjective Date of service: 03/17/22 Principal diagnosis: Hypoxic respiratory failure Interval history: Oxygen and Flow requirement increased overnight. No documentation as to what happened or what the sat was that prompted the change. No hypoxemia seen on documented vitals. i/O are negative. Objective Vital Signs - 12hr 03/17/22 03/17/22 03/17/22 02:00 03:50 04:02 Temperature 97.3 F L Pulse Rate 61 Respiratory 24 24 Rate Blood Pressure 146/79 [Left] O2 Sat by Pulse 95 95 Oximetry 03/17/22 03/17/22 03/17/22 08:55 10:00 11:00 Temperature Pulse Rate 61 Respiratory Rate Blood Pressure [Left] O2 Sat by Pulse 96 96 Oximetry Constitutional: no acute distress, alert, other (obese) Eyes: non-icteric ENT: oropharynx moist Neck: supple, other (obese) Effort: mildly labored Ascultation: Bilateral: diminished breath sounds, rales Percussion: Bilateral: not dull Cardiovascular: regular rate and rhythm (no mrg) Gastrointestinal: normoactive bowel sounds, soft, non-tender, non-distended Integumentary: normal Extremities: no cyanosis, no edema, pink and warm Neurologic: normal mental status, non-focal exam, pupils equal and round Psychiatric: mood appropriate, affect normal CBC and BMP: 03/08/22 09:44 03/17/22 04:00 ABG, PT/INR, D-dimer: ABG ABG pH 7.316 pH Units (7.350-7.450) L 03/11/22 10:35 ABG pCO2 54.7 mm Hg 03/11/22 10:35 ABG pO2 81.0 mm Hg (80.0-90.0) 03/11/22 10:35 ABG O2 Saturation 95.0 % (95.0-99.0) 03/11/22 10:35 Abnormal lab findings: Abnormal Labs 03/03/22 03/03/22 03/03/22 13:34 13:34 13:34 RDW 16.1 H Lymph % (Auto) 9.7 L Lymph # (Auto) 0.8 L Seg Neutrophils % 84.6 H ABG pH ABG HCO3 Oxyhemoglobin Sodium Potassium Chloride BUN 47 H Creatinine 1.7 H Glucose 101 H ALT NT-Pro-B Natriuret Pep 32395 H Total Protein 9.1 H Albumin 3.5 L Urine WBC (Auto) Urine Creatinine Urine Total Protein 03/04/22 03/04/22 03/04/22 02:51 03:05 17:35 RDW 16.0 H Lymph % (Auto) 8.9 L Lymph # (Auto) 0.8 L Seg Neutrophils % 84.1 H ABG pH ABG HCO3 Oxyhemoglobin Sodium Potassium Chloride BUN 46 H Creatinine 1.8 H Glucose 119 H ALT 6 L NT-Pro-B Natriuret Pep Total Protein 8.4 H Albumin 3.4 L Urine WBC (Auto) 11.0 H Urine Creatinine Urine Total Protein 03/04/22 03/05/22 03/05/22 17:35 12:08 15:18 RDW Lymph % (Auto) Lymph # (Auto) Seg Neutrophils % ABG pH ABG HCO3 Oxyhemoglobin Sodium Potassium 6.4 H* D Chloride BUN 55 H 55 H Creatinine 2.0 H 2.0 H Glucose 120 H 116 H ALT NT-Pro-B Natriuret Pep Total Protein Albumin Urine WBC (Auto) Urine Creatinine 41.2 H Urine Total Protein 16 H 03/06/22 03/08/22 03/08/22 05:25 09:44 09:44 RDW 15.9 H Lymph % (Auto) 12.2 L Lymph # (Auto) 0.9 L Seg Neutrophils % 79.5 H ABG pH ABG HCO3 Oxyhemoglobin Sodium Potassium Chloride BUN 58 H 69 H Creatinine 2.1 H 2.3 H Glucose 103 H ALT NT-Pro-B Natriuret Pep Total Protein Albumin Urine WBC (Auto) Urine Creatinine Urine Total Protein 03/08/22 03/09/22 03/10/22 14:36 05:43 07:16 RDW Lymph % (Auto) Lymph # (Auto) Seg Neutrophils % ABG pH ABG HCO3 Oxyhemoglobin Sodium Potassium 5.3 H D Chloride BUN 70 H 82 H 95 H Creatinine 2.4 H 2.5 H 2.3 H Glucose 125 H 149 H 141 H ALT NT-Pro-B Natriuret Pep Total Protein Albumin Urine WBC (Auto) Urine Creatinine Urine Total Protein 03/11/22 03/11/22 03/12/22 06:44 10:35 06:27 RDW Lymph % (Auto) Lymph # (Auto) Seg Neutrophils % ABG pH 7.316 L ABG HCO3 27.3 H Oxyhemoglobin 94.0 L Sodium Potassium Chloride BUN 108 H 113 H Creatinine 2.5 H 2.4 H Glucose 141 H 216 H ALT NT-Pro-B Natriuret Pep Total Protein Albumin Urine WBC (Auto) Urine Creatinine Urine Total Protein 03/13/22 03/14/22 03/15/22 10:19 09:26 07:37 RDW Lymph % (Auto) Lymph # (Auto) Seg Neutrophils % ABG pH ABG HCO3 Oxyhemoglobin Sodium 136 L Potassium Chloride 97.3 L BUN 121 H 131 H 134 H Creatinine 2.4 H 2.6 H 2.5 H Glucose 279 H 146 H 156 H ALT NT-Pro-B Natriuret Pep Total Protein Albumin Urine WBC (Auto) Urine Creatinine Urine Total Protein 03/16/22 03/17/22 05:19 04:00 RDW Lymph % (Auto) Lymph # (Auto) Seg Neutrophils % ABG pH ABG HCO3 Oxyhemoglobin Sodium Potassium Chloride BUN 135 H 129 H Creatinine 2.5 H 2.2 H Glucose 147 H 182 H ALT NT-Pro-B Natriuret Pep Total Protein Albumin Urine WBC (Auto) Urine Creatinine Urine Total Protein
--- NOTE | 2022-03-17 13:08 | Progress Note ---
Assessment and Plan - Patient Problems (1) Chronic kidney disease, stage 3b Current Visit: Yes Status: Acute Plan to address problem: RIN on CKD, secondary to Prerenal azotemia secondary to acute cardiorenal syndrome/diuresis. Steroids also contributing to the severe azotemia. pt however without acute uremic complication at present, no acute need for renal replacement therapy. given improved volume status, rising BUN, transitioned patient to po torsemide (2) Acute exacerbation of congestive heart failure Current Visit: Yes Status: Acute Qualifiers: Heart failure type: combined systolic and diastolic Qualified Code(s): I50.43 - Acute on chronic combined systolic (congestive) and diastolic (congestive) heart failure Plan to address problem: Cardiology input appreciated. Preserved ejection fraction with severe pulmonary hypertension. CT chest showed cardiomegaly with interstitial edema. Incomplete records of intake/output. given improved volume status will transition patient to po torsemide (3) Acute respiratory failure with hypoxia Current Visit: Yes Status: Acute Plan to address problem: Multifactorial. 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 Objective - Vital Signs Vital signs: Vital Signs - 12hr 03/17/22 03/17/22 03/17/22 02:00 03:50 04:02 Temperature 97.3 F L Pulse Rate 61 Respiratory 24 24 Rate Blood Pressure Blood Pressure 146/79 [Left] O2 Sat by Pulse 95 95 Oximetry 03/17/22 03/17/22 03/17/22 08:55 10:00 11:00 Temperature Pulse Rate 61 Respiratory Rate Blood Pressure Blood Pressure [Left] O2 Sat by Pulse 96 96 Oximetry 03/17/22 12:17 Temperature 98.1 F Pulse Rate 84 Respiratory 18 Rate Blood Pressure 97/64 Blood Pressure [Left] O2 Sat by Pulse 93 Oximetry - General Appearance General appearance: well-developed, well-nourished, appears stated age, obese EENT: ATNC, PERRL, mucous membranes moist Neck: no JVD Respiratory: Present: Clear to Ascultation Cardiology: regular, S1S2 Gastrointestinal: normoactive bowel sounds, obese Integumentary: no rash Neurologic: no focal deficit, alert and oriented x3, strength 5/5, CN 3-12 intact - Lab 03/08/22 09:44 03/17/22 04:00 Most recent lab results ABG pH 7.316 pH Units (7.350-7.450) L 03/11/22 10:35 ABG pCO2 54.7 mm Hg 03/11/22 10:35 ABG pO2 81.0 mm Hg (80.0-90.0) 03/11/22 10:35 ABG HCO3 27.3 mmol/L (20.0-26.0) H 03/11/22 10:35 ABG O2 Saturation 95.0 % (95.0-99.0) 03/11/22 10:35 Calcium 8.5 mg/dL (8.4-10.2) 03/17/22 04:00 Urine Creatinine 41.2 mg/dL (0.1-20.0) H 03/04/22 17:35 Urine Sodium 126 mmol/L 03/04/22 17:35 Urine Total Protein 16 mg/dL (5-11.8) H 03/04/22 17:35 Medications & Allergies - Medications Allergies/Adverse Reactions: Allergies iodine Allergy (Verified 03/03/22 12:49) Anaphylaxis Penicillins Allergy (Verified 03/03/22 12:49) Anaphylaxis shellfish derived Allergy (Verified 03/03/22 12:49) Anaphylaxis Home Medications: Home Medications Medication Instructions Recorded Confirmed Last Taken Type Acetaminophen [Non-Aspirin Extra 500 mg PO Q8HR PRN 03/04/22 03/04/22 03/01/22 History Strength] Aspirin EC 325 mg PO 4XW 03/04/22 03/04/22 03/02/22 History Hydrocodone-Acetamin 2.5-325 5 - 325 mg PO Q6HR PRN 03/04/22 03/04/22 03/02/22 History Mucus Relief ER 600 mg PO BID 03/04/22 03/05/22 03/02/22 History Omeprazole 40 mg PO DAILY 03/04/22 03/05/22 03/02/22 History Phenazopyridine 200 mg PO TID 03/04/22 03/04/22 03/03/22 History Senna Plus Tablet 8.6 - 50 mg PO BID MDD CONSTIPATION 03/04/22 03/05/22 03/02/22 History Diclofenac Sodium ER 75 mg PO Q8HR 03/05/22 03/05/22 03/02/22 History Nifedipine ER 60 mg PO DAILY 03/05/22 03/05/22 03/02/22 History Vitamin D3 25 mg PO DAILY 03/05/22 03/05/22 03/02/22 History Active Medications: Generic Name Dose Route Start Last Admin Trade Name Freq PRN Reason Stop Dose Admin Acetaminophen 650 mg 03/03/22 20:28 03/15/22 09:14 Acetaminophen 325 Mg Tab PO 650 mg Q4H PRN Administration Pain MILD(1-3)/Fever >100.5/HOFFMAN Cetirizine HCl 10 mg 03/12/22 15:00 03/17/22 10:44 Cetirizine 10 Mg Tab PO 10 mg QDAY VREN Administration Fluticasone Propionate 200 mcg 03/13/22 20:00 03/17/22 10:44 Fluticasone Propionate Nasal Horse[place] 16 Gm NS 200 mcg QDAY VERN Administration Guaifenesin 600 mg 03/12/22 15:00 03/17/22 10:44 Guaifenesin Er 600 Mg Tab PO 600 mg BID VERN Administration Heparin Sodium (Porcine) 7,500 unit 03/16/22 14:00 03/17/22 07:26 Heparin 5,000 Unit/1 Ml Vial SUB-Q 7,500 unit Q8HR VERN Administration Methylprednisolone Sodium Succinate 60 mg 03/15/22 10:00 03/17/22 10:44 Methylprednisolone Sod Succinate 125 Mg/2 Ml Inj IV 60 mg Q12HR VERN Administration Metoclopramide HCl 5 mg 03/11/22 12:00 Metoclopramide 10 Mg/2 Ml Inj IV Q6H PRN Nausea And Vomiting Morphine Sulfate 2 mg 03/03/22 20:28 Morphine 2 Mg/1 Ml Inj IV Q4H PRN Pain, Moderate (4-6) Ondansetron HCl 4 mg 03/03/22 20:28 Ondansetron 4 Mg/2 Ml Inj IV Q8H PRN Nausea And Vomiting Oxycodone/Acetaminophen 1 tab 03/03/22 20:28 03/09/22 12:06 Oxycodone /Acetaminophen 5-325mg Tab PO 1 tab Q6H PRN Administration Pain, Moderate (4-6) Pantoprazole Sodium 40 mg 03/12/22 15:00 03/17/22 10:45 Pantoprazole 40 Mg Tab PO 40 mg QDAC VERN Administration Polyethylene Glycol 17 gm 03/16/22 10:00 03/17/22 10:52 Polyethylene Glycol 3350 17 Gm Powder PO Not Given QDAY VERN Senna/Docusate Sodium 2 tab 03/06/22 11:00 03/17/22 12:30 Sennosides/Docusate Sodium 8.6/50 Mg Tab PO Not Given Q12H VERN Sildenafil Citrate 20 mg 03/11/22 14:00 03/17/22 10:44 Sildenafil 20 Mg Tab PO 20 mg TID VERN Administration Sodium Chloride 10 ml 03/03/22 22:00 03/16/22 21:38 Sodium Chloride 0.9% 10 Ml Flush Syringe IV 10 ml BID VERN Administration Sodium Chloride 10 ml 03/03/22 20:28 Sodium Chloride 0.9% 10 Ml Flush Syringe IV PRN PRN LINE FLUSH Torsemide 40 mg 03/17/22 10:00 03/17/22 10:43 Torsemide 10 Mg Tab PO 40 mg DAILY VERN Administration
--- NOTE | 2022-03-17 13:13 | Progress Note ---
Assessment and Plan Assessment and plan: #Severe pulmonary arterial hypertension #Acute on chronic hypoxic respiratory failure-improving - baseline oxygen requirements: 5 L nasal cannula - supplemental oxygen: HFNC 25 L / 50% FiO2; will attempt to wean as tolerated Pulmonology following; assistance appreciated - Continue protocol: continue pulse oximetry, wean oxygen as tolerated, ordered incentive spirometry and educated patient on how to use it and its importance - Unremarkable LE dopplers. V/Q scan low probability for PE - CTA of the chest: intersitial edema and central pulmonary arterial enlargement suggest of PAH - continue IV steroids; may benefit from R + L heart cath for further evaluation - Patient is on sildenafil #Left heel ulcer Concern for acute versus chronic osteomyelitis General surgery consulted; pending recs. Follow patient is currently on high flow nasal cannula, making it difficult for the patient to obtain CT versus MRI of lower extremity to evaluate for osteomyelitis. Infectious disease consulted for possible presumed treatment of chronic osteomyelitis. #Acute on chronic diastolic heart failureresolved #Cor pulmonale - Continue CHF exacerbation protocol: Telemetry, Strict I/O, monitor urine output every shift, daily weights, afterload reduction, low-sodium diet, and fluid restriction of approximately 1.5 mL/day - continue PO diuretics - ProBNP on admission: 11,875 - Cardiology following; appreciate recs - TTE (03/04/2022) revealing EF 50-55% with normal-sized LV, lower limits of normal LV systolic function, borderline concentric LVH, severely dilated RV, severely reduced RV systolic function, mildly dilated LA, severely dilated RA, RVSP >95 mmHg, and severe pulmonary hypertension. -Patient is on IV Lasix 40 mg daily #ESBL UTI/cystitis without hematuriaresolved Urinalysis revealing large leukocyte esterase, WBC 11, 1+ bacteria, few budding yeast. - Macrobid discontinued due to worsening renal function, ertapenem x3 doses started per ID recs Infectious disease following, assistance appreciated Continue precautions #Atypical chest painruled out Negative troponin x2 Likely secondary to volume overload in the setting of acute heart failure. #RIN on CKD stage IIIstable SCr 2.4 today Renally dose meds and avoid nephrotoxic drugs Nephrology following; appreciate recs #Mild protein caloric malnutrition Albumin 3.4 Continue dietary supplementation #Morbid obesity #Weight loss counseling #Exercise counseling - BMI 53.1 - Counseled patient on the importance of weight loss, incorporating exercise, and dietary changes (lean meats, fresh fruits and vegetables, and water intake). Patient expresses understanding. - Time: +15 min #Discharge planning - Patient is pending approval for LTAC - Case management has been made aware. Critical Care Billing: The high probability of a clinically significant, sudden or life threatening deterioration of the [respiratory] system(s) required my full and direct attention, intervention and personal management. The aggregate critical care time was [60] minutes. This time is in addition to time spent performing reported procedures but includes the following: [x] Data Review and interpretation [x] Patient assessment and monitoring of vital signs [x] Documentation [x] Medication orders and management Disposition Plan: Continue medical management Total Time Spent with Patient (Minutes): 45 minutes History Interval history: No acute events overnight. Hospitalist Physical - Constitutional Vitals: Temp Pulse Resp BP Pulse Ox 98.1 F 84 18 97/64 93 03/17/22 12:17 03/17/22 12:17 03/17/22 12:17 03/17/22 12:17 03/17/22 12:17 General appearance: Present: no acute distress, well-nourished, obese - EENT Eyes: Present: PERRL, EOM intact ENT: hearing intact, clear oral mucosa, dentition normal - Neck Neck: Present: supple, normal ROM - Respiratory Respiratory effort: normal Respiratory: bilateral: diminished (HFNC 25 L / 50% FiO2) - Cardiovascular Rhythm: regular Heart Sounds: Present: S1 & S2 - Extremities Extremities: no ischemia, pulses intact, pulses symmetrical, No edema, normal temperature, normal color Extremity abnormal: ulceration (Ulceration of left heel) Peripheral Pulses: within normal limits - Abdominal General gastrointestinal: soft, non-tender, non-distended, normal bowel sounds - Integumentary Integumentary: Present: clear, warm, dry - Psychiatric Psychiatric: appropriate mood/affect, memory intact, cooperative - Neurologic Neurologic: CNII-XII intact - Allied Health Allied health notes reviewed: nursing HEART Score - HEART Score Age: > 65 Risk factors: 1-2 risk factors Troponin: Troponin T < 0.010 ng/mL (0.00-0.029) 03/03/22 13:34 Troponin: < normal limit - Critical Actions Critical Actions: 4-6 pts:12-16.6% risk of adverse cardiac event. Should be admitted Results - Labs CBC & Chem 7: 03/08/22 09:44 03/17/22 04:00 Labs: Laboratory Last Values WBC 7.6 K/mm3 (4.5-11.0) 03/08/22 09:44 RBC 4.57 M/mm3 (3.65-5.03) 03/08/22 09:44 Hgb 13.3 gm/dl (10.1-14.3) 03/08/22 09:44 Hct 41.7 % (30.3-42.9) 03/08/22 09:44 MCV 91 fl (79-97) 03/08/22 09:44 MCH 29 pg (28-32) 03/08/22 09:44 MCHC 32 % (30-34) 03/08/22 09:44 RDW 15.9 % (13.2-15.2) H 03/08/22 09:44 Plt Count 207 K/mm3 (140-440) 03/08/22 09:44 Lymph % (Auto) 12.2 % (13.4-35.0) L 03/08/22 09:44 [place] % (Auto) 4.6 % (0.0-7.3) 03/08/22 09:44 Eos % (Auto) 3.0 % (0.0-4.3) 03/08/22 09:44 Baso % (Auto) 0.7 % (0.0-1.8) 03/08/22 09:44 Lymph # (Auto) 0.9 K/mm3 (1.2-5.4) L 03/08/22 09:44 [place] # (Auto) 0.4 K/mm3 (0.0-0.8) 03/08/22 09:44 Eos # (Auto) 0.2 K/mm3 (0.0-0.4) 03/08/22 09:44 Baso # (Auto) 0.1 K/mm3 (0.0-0.1) 03/08/22 09:44 Seg Neutrophils % 79.5 % (40.0-70.0) H 03/08/22 09:44 Seg Neutrophils # 6.0 K/mm3 (1.8-7.7) 03/08/22 09:44 ABG pH 7.316 pH Units (7.350-7.450) L 03/11/22 10:35 ABG pCO2 54.7 mm Hg 03/11/22 10:35 ABG pO2 81.0 mm Hg (80.0-90.0) 03/11/22 10:35 ABG HCO3 27.3 mmol/L (20.0-26.0) H 03/11/22 10:35 ABG O2 Saturation 95.0 % (95.0-99.0) 03/11/22 10:35 ABG O2 Content 18.1 (0.0-44) 03/11/22 10:35 ABG Base Excess 0.2 mmol/L (-2.0-3.0) 03/11/22 10:35 ABG Hemoglobin 13.7 gm/dl (12.0-16.0) 03/11/22 10:35 ABG Carboxyhemoglobin 0.7 % (0.0-5.0) 03/11/22 10:35 ABG Methemoglobin 0.4 % (0.0-1.5) 03/11/22 10:35 Oxyhemoglobin 94.0 % (95.0-99.0) L 03/11/22 10:35 FiO2 90 % 03/11/22 10:35 Sodium 143 mmol/L (137-145) 03/17/22 04:00 Potassium 4.3 mmol/L (3.6-5.0) 03/17/22 04:00 Chloride 105.5 mmol/L (98-107) 03/17/22 04:00 Carbon Dioxide 24 mmol/L (22-30) 03/17/22 04:00 Anion Gap 18 mmol/L 03/17/22 04:00 BUN 129 mg/dL (7-17) H 03/17/22 04:00 Creatinine 2.2 mg/dL (0.6-1.2) H 03/17/22 04:00 Estimated GFR 27 ml/min 03/17/22 04:00 BUN/Creatinine Ratio 59 % 03/17/22 04:00 Glucose 182 mg/dL (65-100) H 03/17/22 04:00 Calcium 8.5 mg/dL (8.4-10.2) 03/17/22 04:00 Total Bilirubin 0.60 mg/dL (0.1-1.2) 03/04/22 02:51 AST 12 units/L (5-40) 03/04/22 02:51 ALT 6 units/L (7-56) L 03/04/22 02:51 Alkaline Phosphatase 91 units/L (35-129) 03/04/22 02:51 Troponin T < 0.010 ng/mL (0.00-0.029) 03/03/22 13:34 NT-Pro-B Natriuret Pep 94294 pg/mL (0-900) H 03/03/22 13:34 Total Protein 8.4 g/dL (6.3-8.2) H 03/04/22 02:51 Albumin 3.4 g/dL (3.9-5) L 03/04/22 02:51 Albumin/Globulin Ratio 0.7 % 03/04/22 02:51 Urine Color Yellow (Yellow) 03/04/22 17:35 Urine Turbidity Slightly-cloudy (Clear) 03/04/22 17:35 Urine pH 6.0 (5.0-7.0) 03/04/22 17:35 Ur Specific [place] 1.008 (1.003-1.030) 03/04/22 17:35 Urine Protein <15 mg/dl mg/dL (Negative) 03/04/22 17:35 Urine Glucose (UA) Neg mg/dL (Negative) 03/04/22 17:35 Urine Ketones Neg mg/dL (Negative) 03/04/22 17:35 Urine Blood Mod (Negative) 03/04/22 17:35 Urine Nitrite Neg (Negative) 03/04/22 17:35 Urine Bilirubin Neg (Negative) 03/04/22 17:35 Urine Urobilinogen < 2.0 mg/dL (<2.0) 03/04/22 17:35 Ur Leukocyte Esterase Lg (Negative) 03/04/22 17:35 Urine WBC (Auto) 11.0 /HPF (0.0-6.0) H 03/04/22 17:35 Urine RBC (Auto) 2.0 /HPF (0.0-6.0) 03/04/22 17:35 U Epithel Cells (Auto) 1.0 /HPF (0-13.0) 03/04/22 17:35 Urine Bacteria (Auto) 1+ /HPF (Negative) 03/04/22 17:35 Urine Mucus Few /HPF 03/04/22 17:35 Urine Yeast (Budding) Few /HPF 03/04/22 17:35 Urine Creatinine 41.2 mg/dL (0.1-20.0) H 03/04/22 17:35 Urine Sodium 126 mmol/L 03/04/22 17:35 Urine Total Protein 16 mg/dL (5-11.8) H 03/04/22 17:35 Coronavirus (PCR) Negative (Negative) 03/04/22 09:57 Gale/IV: Voiding Method External Female Catheter Active Medications - Current Medications Current Medications: Generic Name Dose Route Start Last Admin Trade Name Freq PRN Reason Stop Dose Admin Acetaminophen 650 mg 03/03/22 20:28 03/15/22 09:14 Acetaminophen 325 Mg Tab PO 650 mg Q4H PRN Administration Pain MILD(1-3)/Fever >100.5/HOFFMAN Cetirizine HCl 10 mg 03/12/22 15:00 03/17/22 10:44 Cetirizine 10 Mg Tab PO 10 mg QDAY VERN Administration Fluticasone Propionate 200 mcg 03/13/22 20:00 03/17/22 10:44 Fluticasone Propionate Nasal [place] 16 Gm NS 200 mcg QDAY VERN Administration Guaifenesin 600 mg 03/12/22 15:00 03/17/22 10:44 Guaifenesin Er 600 Mg Tab PO 600 mg BID VERN Administration Heparin Sodium (Porcine) 7,500 unit 03/16/22 14:00 03/17/22 07:26 Heparin 5,000 Unit/1 Ml Vial SUB-Q 7,500 unit Q8HR VERN Administration Methylprednisolone Sodium Succinate 60 mg 03/15/22 10:00 03/17/22 10:44 Methylprednisolone Sod Succinate 125 Mg/2 Ml Inj IV 60 mg Q12HR VERN Administration Metoclopramide HCl 5 mg 03/11/22 12:00 Metoclopramide 10 Mg/2 Ml Inj IV Q6H PRN Nausea And Vomiting Morphine Sulfate 2 mg 03/03/22 20:28 Morphine 2 Mg/1 Ml Inj IV Q4H PRN Pain, Moderate (4-6) Ondansetron HCl 4 mg 03/03/22 20:28 Ondansetron 4 Mg/2 Ml Inj IV Q8H PRN Nausea And Vomiting Oxycodone/Acetaminophen 1 tab 03/03/22 20:28 03/09/22 12:06 Oxycodone /Acetaminophen 5-325mg Tab PO 1 tab Q6H PRN Administration Pain, Moderate (4-6) Pantoprazole Sodium 40 mg 03/12/22 15:00 03/17/22 10:45 Pantoprazole 40 Mg Tab PO 40 mg QDAC VERN Administration Polyethylene Glycol 17 gm 03/16/22 10:00 03/17/22 10:52 Polyethylene Glycol 3350 17 Gm Powder PO Not Given QDAY VERN Senna/Docusate Sodium 2 tab 03/06/22 11:00 03/17/22 12:30 Sennosides/Docusate Sodium 8.6/50 Mg Tab PO Not Given Q12H VERN Sildenafil Citrate 20 mg 03/11/22 14:00 03/17/22 10:44 Sildenafil 20 Mg Tab PO 20 mg TID VERN Administration Sodium Chloride 10 ml 03/03/22 22:00 03/16/22 21:38 Sodium Chloride 0.9% 10 Ml Flush Syringe IV 10 ml BID VERN Administration Sodium Chloride 10 ml 03/03/22 20:28 Sodium Chloride 0.9% 10 Ml Flush Syringe IV PRN PRN LINE FLUSH Torsemide 40 mg 03/17/22 10:00 03/17/22 10:43 Torsemide 10 Mg Tab PO 40 mg DAILY VERN Administration Nutrition/Malnutrition Assess - Dietary Evaluation Nutrition/Malnutrition Findings: Nutrition Notes Start: 03/11/22 14:05 Freq: Status: Active Protocol: Document 03/11/22 14:05 RAOUL (Rec: 03/11/22 14:21 RAOUL [id number]) Nutrition Notes Need for Assessment generated from: LOS Initial or Follow up Assessment Current Diagnosis Acute Kidney Injury,CKD(stage I-IV),Respiratory Failure, Malnutrition Other Pertinent Diagnosis HFpEF, Cor Pulmonale, UTI, Cystitis. Current Diet Cardiac -Renal- Diet (from D 03/11). Labs/Tests 03/11: BUN 108, Crea 2.5, Glu 141. Pertinent Medications 03/11: Nutritionally unremarkable. 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 Weight Status Morbidly Obese Subjective/Other Information RD consult for LOS assessment. Pt's PO intake of meals has been Good (>75%) but fairly tolerated, according to ADL notes. I will prescribe renal modification to current diet to support Pt's RIN/CKD condition during LOS. Pt is on High-Flow Nasal Cannula, O2 saturation @ 96%, according to Physical Assessment History notes. Pt presents an > as signs of concern for skin risk at this time, according to Physical Assessment History notes. Percent of energy/protein needs met: Prescribed Cardiac -Renal- Diet provides for energy/ protein needs (2,230 Kcal/85 g ) during LOS. Burn Absent Trauma Absent GI Symptoms None Food Allergy Yes Skin Integrity/Comment Unspecified dryness and flakiness. Current % PO Good (75-100%) Minimum of two criteria No Fluid Accumulation N/A Reduced Perinatology Physician Strength N/A (non-severe) Protein-Calorie Malnutrition N\A #1 Nutrition Diagnosis Altered nutrition-related laboratory values Etiology RIN/CKD III. As Evidenced by Signs and Symptoms 03/11: BUN 108, Crea 2.5. Is patient on ventilator? No Is Patient Ambulatory and/or Out of Bed Yes REE-([place]-ambulatory/OOB) [ 2386.969 [id number]] Kcal/Kg value to use for calculation 10 Approximate Energy Requirements Using 1347 kcal/Kg Calculation Used for Recommendations Kcal/kg Additional Notes Protein: 0.6-0.8 g/Kg AdjBW; 56-75 g/day. Fluids: 1 ml/Kcal, or as per MD. Nutrition Intervention Change Diet Order: Modify to Cardiac -Renal- Diet . Goal #1 Adjust the dietary intervention to better serve Pt's needs and clinical conditions during LOS. Additional Comments Continue monitoring food tolerance, %PO intake of meals , and BM.
--- NOTE | 2022-03-17 13:26 | Consultation ---
History of Present Illness Consult date: 03/17/22 Reason for consult: wound care - History of present illness History of present illness: 71-year-old female consulted on by general surgery for chronic left heel wound with osteomyelitis. Patient presented to the emergency room with shortness of breath. Patient has been in the hospital for over a week being treated for renal insufficiency, congestive heart failure, pulmonary hypertension. Patient says that she has had this wound on her left heel for many years. She has had previous revascularization procedures on her left leg. She has had wound care in the past that entailed wound vacs after aggressive debridements. She says they had even discussed possible amputation with her but said that due to her left knee effusion she would not be a good candidate for prosthetic. Patient had left foot and ankle x-rays today that are suggestive of osteomyelitis changes in her calcaneus. Past History Past Medical History: diabetes, hypertension, other (Severe obesity with obstructive sleep apnea, pulmonary htn, chf) Past Surgical History: Other (left leg revascularization, heel surgery) Social history: denies: smoking, alcohol abuse, prescription drug abuse, IV drug use Family history: hypertension Medications and Allergies Allergies Allergy/AdvReac Type Severity Reaction Status Date / Time iodine Allergy Anaphylaxis Verified 03/03/22 12:49 Penicillins Allergy Anaphylaxis Verified 03/03/22 12:49 shellfish derived Allergy Anaphylaxis Verified 03/03/22 12:49 Home Medications Medication Instructions Recorded Confirmed Last Taken Type Acetaminophen [Non-Aspirin Extra 500 mg PO Q8HR PRN 03/04/22 03/04/22 03/01/22 History Strength] Aspirin EC 325 mg PO 4XW 03/04/22 03/04/22 03/02/22 History Hydrocodone-Acetamin 2.5-325 5 - 325 mg PO Q6HR PRN 03/04/22 03/04/22 03/02/22 History Mucus Relief ER 600 mg PO BID 03/04/22 03/05/22 03/02/22 History Omeprazole 40 mg PO DAILY 03/04/22 03/05/22 03/02/22 History Phenazopyridine 200 mg PO TID 03/04/22 03/04/22 03/03/22 History Senna Plus Tablet 8.6 - 50 mg PO BID MDD CONSTIPATION 03/04/22 03/05/22 03/02/22 History Diclofenac Sodium ER 75 mg PO Q8HR 03/05/22 03/05/22 03/02/22 History Nifedipine ER 60 mg PO DAILY 03/05/22 03/05/22 03/02/22 History Vitamin D3 25 mg PO DAILY 03/05/22 03/05/22 03/02/22 History Active Meds: Active Medications Acetaminophen (Acetaminophen 325 Mg Tab) 650 mg PO Q4H PRN PRN Reason: Pain MILD(1-3)/Fever >100.5/HOFFMAN Last Admin: 03/15/22 09:14 Dose: 650 mg Cetirizine HCl (Cetirizine 10 Mg Tab) 10 mg PO QDAY [facility] Last Admin: 03/17/22 10:44 Dose: 10 mg Fluticasone Propionate (Fluticasone Propionate Nasal [place] 16 Gm) 200 mcg NS QDAY [facility] Last Admin: 03/17/22 10:44 Dose: 200 mcg Guaifenesin (Guaifenesin Er 600 Mg Tab) 600 mg PO BID [facility] Last Admin: 03/17/22 10:44 Dose: 600 mg Heparin Sodium (Porcine) (Heparin 5,000 Unit/1 Ml Vial) 7,500 unit SUB-Q Q8HR [facility] Last Admin: 03/17/22 07:26 Dose: 7,500 unit Methylprednisolone Sodium Succinate (Methylprednisolone Sod Succinate 125 Mg/2 Ml Inj) 60 mg IV Q12HR [facility] Last Admin: 03/17/22 10:44 Dose: 60 mg Metoclopramide HCl (Metoclopramide 10 Mg/2 Ml Inj) 5 mg IV Q6H PRN PRN Reason: Nausea And Vomiting Morphine Sulfate (Morphine 2 Mg/1 Ml Inj) 2 mg IV Q4H PRN PRN Reason: Pain, Moderate (4-6) Ondansetron HCl (Ondansetron 4 Mg/2 Ml Inj) 4 mg IV Q8H PRN PRN Reason: Nausea And Vomiting Oxycodone/Acetaminophen (Oxycodone /Acetaminophen 5-325mg Tab) 1 tab PO Q6H PRN PRN Reason: Pain, Moderate (4-6) Last Admin: 03/09/22 12:06 Dose: 1 tab Pantoprazole Sodium (Pantoprazole 40 Mg Tab) 40 mg PO QDAC [facility] Last Admin: 03/17/22 10:45 Dose: 40 mg Polyethylene Glycol (Polyethylene Glycol 3350 17 Gm Powder) 17 gm PO QDAY [facility] Last Admin: 03/17/22 10:52 Dose: Not Given Senna/Docusate Sodium (Sennosides/Docusate Sodium 8.6/50 Mg Tab) 2 tab PO Q12H [facility] Last Admin: 03/17/22 12:30 Dose: Not Given Sildenafil Citrate (Sildenafil 20 Mg Tab) 20 mg PO TID [facility] Last Admin: 03/17/22 10:44 Dose: 20 mg Sodium Chloride (Sodium Chloride 0.9% 10 Ml Flush Syringe) 10 ml IV BID [facility] Last Admin: 03/16/22 21:38 Dose: 10 ml Sodium Chloride (Sodium Chloride 0.9% 10 Ml Flush Syringe) 10 ml IV PRN PRN PRN Reason: LINE FLUSH Torsemide (Torsemide 10 Mg Tab) 40 mg PO DAILY [facility] Last Admin: 03/17/22 10:43 Dose: 40 mg Review of Systems All systems: negative - Constitutional no fever, no chills - Muskuloskeletal limitation of motion, gait dysfunction, no shooting leg pain, no redness of joints Exam Vital Signs Temp Pulse Resp BP Pulse Ox 98.4 F 82 20 156/86 92 03/03/22 12:43 03/03/22 12:43 03/03/22 12:43 03/03/22 12:43 03/03/22 12:43 - General physical appearance Positive: well developed, well nourished, no distress, no pain, chronically ill, obese - Eyes Positive: PERRL - ENT Positive: no hearing loss - Respiratory Positive: normal expansion, normal respiratory effort - Cardiovascular Heart Sounds: Present: S1 & S2 - Extremities Extremities: abnormal Extremity abnormal: other (left leg with no motion at knee, left heel with 2cm skin defect on the heel surrounded by chonic thick scar. no erythema and minmal tenderness. minimal exudative drainage with no odor. foot warm) - Abdomen Abdomen: Present: soft. Absent: tender - Neurologic Neurologic: alert and oriented to time, place and person - Psychiatric Psychiatric: appropriate mood/affect Results - Labs 03/08/22 09:44 03/17/22 04:00 Abnormal lab results 03/17/22 Range/Units 04:00 BUN 129 H (7-17) mg/dL Creatinine 2.2 H (0.6-1.2) mg/dL Glucose 182 H (65-100) mg/dL Diabetes panel 03/17/22 Range/Units 04:00 Sodium 143 (137-145) mmol/L Potassium 4.3 (3.6-5.0) mmol/L Chloride 105.5 (98-107) mmol/L Carbon Dioxide 24 (22-30) mmol/L BUN 129 H (7-17) mg/dL Creatinine 2.2 H (0.6-1.2) mg/dL Glucose 182 H (65-100) mg/dL Calcium 8.5 (8.4-10.2) mg/dL Calcium panel 03/17/22 Range/Units 04:00 Calcium 8.5 (8.4-10.2) mg/dL Pituitary panel 03/17/22 Range/Units 04:00 Sodium 143 (137-145) mmol/L Potassium 4.3 (3.6-5.0) mmol/L Chloride 105.5 (98-107) mmol/L Carbon Dioxide 24 (22-30) mmol/L BUN 129 H (7-17) mg/dL Creatinine 2.2 H (0.6-1.2) mg/dL Glucose 182 H (65-100) mg/dL Calcium 8.5 (8.4-10.2) mg/dL Adrenal panel 03/17/22 Range/Units 04:00 Sodium 143 (137-145) mmol/L Potassium 4.3 (3.6-5.0) mmol/L Chloride 105.5 (98-107) mmol/L Carbon Dioxide 24 (22-30) mmol/L BUN 129 H (7-17) mg/dL Creatinine 2.2 H (0.6-1.2) mg/dL Glucose 182 H (65-100) mg/dL Calcium 8.5 (8.4-10.2) mg/dL Assessment and Plan 71 year old female with acute on chronic non healing left heel wound with osteomyelitis. Afebrile and stable showing no clinical signs of systemic infection. Will clean wound at bedside. Agree with ID carolyn. Refer to outpatient wound care upon discharge. Pt may be a candidate for hyperbaric therapy. Discussed pathology and treatment options with pt who expressed understanding and agreement.
--- NOTE | 2022-03-17 17:29 | Vascular Lab Report ---
DUPLEX DOPPLER LOWER EXTREMITY ARTERIAL, LEFT INDICATION / CLINICAL INFORMATION: hx L leg revascularization, chronic wound heel ost. TECHNIQUE: Arterial duplex examination of the left lower extremity performed using B-mode, color flow and spectral Doppler assessment. FINDINGS: LEFT: Occluded left lower extremity bypass graft. Common Femoral Artery: PSV 150 cm/sec. Biphasic waveform. Proximal SFA: Absent color Doppler blood flow. Mid SFA: Absent color Doppler blood flow. Distal SFA: Absent color Doppler blood flow. Popliteal Artery: PSV 13 cm/sec. Monophasic waveform. Posterior Tibial Artery: PSV 11 cm/sec. Monophasic waveform. Dorsalis Pedis Artery: PSV 39 cm/sec. Monophasic waveform. ADDITIONAL FINDINGS: None. LEFT JAMIE: Not calculated. IMPRESSION: 1. Occluded left lower extremity bypass graft. 2. Occluded left superficial femoral artery. There is transition to monophasic waveforms at the popli teal artery with dampened velocities noted in the popliteal and posterior tibial arteries. Ankle-Brachial Index (JAMIE): - Calcified arteries > 1.4 - Normal = 0.9-1.4 - Mild PAD = 0.7-0.89 - Moderate PAD = 0.51-0.69 - Severe PAD < 0.5 Doppler Waveform: - Triphasic is normal. - Biphasic is abnormal if clear transition from triphasic signal along vascular tree. - Monophasic is abnormal. Scribed by: Elis Martin RDMS, RVT, RMSKS Scribed: 03/17/2022 3:41 PM I have reviewed the images, agree with this report, and edited this report as needed. Signer Name: Tho Odonnell MD Signed: 03/17/2022 5:24 PM Workstation Name: [email or web address]
[2022-03-18] MEDS: HEPARIN 5,000 UNIT/1 ML VIAL SUB-Q SCH ×3 (06:25→21:41)
--- NOTE | 2022-03-18 09:22 | Progress Note ---
Assessment and Plan - Patient Problems (1) Interstitial edema Current Visit: Yes Status: Acute Plan to address problem: 71-year-old woman with morbid obesity, obstructive sleep apnea, hypertension, presents with shortness of breath and chest x-ray evidence of mild to moderate interstitial edema. Previous invasive cardiac work-up 10 years ago showed no significant coronary artery disease. Prior left ventricular systolic function assessment was well-preserved at 50%. Echocardiogram on this presentation demonstrates well-preserved left ventricular systolic function. Major finding on the echocardiogram is the presence of severe cor pulmonale with dilated right heart chambers, moderate to severe tricuspid regurgitation and severe pulmonary hypertension with pulmonary artery systolic pressures approaching systemic levels. Chronic lung disease appears to be primary etiology for dyspnea, respiratory insufficiency and hypoxemia. Subjective Date of service: 03/18/22 Principal diagnosis: Hypoxic respiratory failure Interval history: Patient is comfortable, no cardiac complaints, no new cardiac events reported. Patient is on nasal oxygen. 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 Objective Vital Signs Temp Pulse Resp BP BP Pulse Ox 03/18/22 04:47 97.4 F L 67 17 150/75 93 03/18/22 02:25 69 19 96 03/17/22 23:16 97.5 F L 81 23 158/83 97 03/17/22 23:05 93 03/17/22 20:23 93 03/17/22 19:47 97.9 F 100 H 19 143/74 88 03/17/22 17:09 98.4 F 78 18 147/85 95 03/17/22 13:48 92 03/17/22 12:17 98.1 F 84 18 97/64 93 03/17/22 11:00 96 03/17/22 10:00 85 22 97 - Physical Examination General: No Apparent Distress HEENT: Positive: PERRL Neck: Positive: neck supple Cardiac: Positive: Reg Rate and Rhythm Lungs: Positive: Decreased Breath Sounds Neuro: Positive: Grossly Intact Abdomen: Positive: Soft Skin: Positive: Clear Extremities: Present: edema (Minimal) - Imaging and Cardiology EKG: report reviewed (Sinus tachycardia no acute ST-T wave changes)
[2022-03-18] MEDS: SENNOSIDES/DOCUSATE SODIUM 8.6/50 MG TAB PO SCH ×2 (10:37→21:59)
[2022-03-18] MEDS: TORSEMIDE 10 MG TAB PO SCH (10:38)
[2022-03-18] MEDS: CETIRIZINE 10 MG TAB PO SCH (10:38)
[2022-03-18] MEDS: POLYETHYLENE GLYCOL 3350 17 GM POWDER PO SCH (10:38)
[2022-03-18] MEDS: FLUTICASONE PROPIONATE NASAL SPRAY 16 GM NS SCH (10:38)
[2022-03-18] MEDS: guaiFENesin ER 600 MG TAB PO SCH ×2 (10:39→21:41)
[2022-03-18] MEDS: methylPREDNISolone Sod Succinate 125 MG/2 ML INJ IV SCH ×2 (10:40→21:40)
[2022-03-18] MEDS: PANTOPRAZOLE 40 MG TAB PO SCH (10:40)
[2022-03-18] MEDS: SILDENAFIL 20 MG TAB PO SCH ×3 (10:40→20:06)
--- NOTE | 2022-03-18 11:17 | Progress Note ---
Assessment and Plan - Patient Problems (1) Chronic kidney disease, stage 3b Current Visit: Yes Status: Acute Plan to address problem: RIN on CKD, secondary to Prerenal azotemia secondary to acute cardiorenal syndrome/diuresis. Steroids also contributing to the severe azotemia. pt however without acute uremic complication at present, no acute need for renal replacement therapy. given improved volume status, rising BUN, transitioned patient to po torsemide (2) Acute exacerbation of congestive heart failure Current Visit: Yes Status: Acute Qualifiers: Heart failure type: combined systolic and diastolic Qualified Code(s): I50.43 - Acute on chronic combined systolic (congestive) and diastolic (congestive) heart failure Plan to address problem: Cardiology input appreciated. Preserved ejection fraction with severe pulmonary hypertension. CT chest showed cardiomegaly with interstitial edema. Incomplete records of intake/output. given improved volume status will transition patient to po torsemide (3) Acute respiratory failure with hypoxia Current Visit: Yes Status: Acute Plan to address problem: Multifactorial. Continue respiratory support/management by [facility] (4) Hypertensive chronic kidney disease with stage 1 through stage 4 chronic kidney disease, or unspecified chronic kidney disease Current Visit: Yes Status: Acute Plan to address problem: Follow-up blood pressure on current medications (5) Urinary tract infection Current Visit: Yes Status: Acute Plan to address problem: ESBL urinary tract infection completed course of macrobid and ertapenem Subjective Date of service: 03/18/22 Principal diagnosis: Hypoxic respiratory failure Interval history: Patient is awake, alert, in no acute distress, denies fever, chills, n/v/d, CP, dysuria. Objective - Vital Signs Vital signs: Vital Signs - 12hr 03/18/22 03/18/22 03/18/22 02:25 04:47 08:24 Temperature 97.4 F L 97.4 F L Pulse Rate 69 67 60 Respiratory 19 17 18 Rate Blood Pressure 133/74 Blood Pressure 150/75 [Left] O2 Sat by Pulse 96 93 98 Oximetry - General Appearance General appearance: well-developed, well-nourished, appears stated age, obese EENT: ATNC, PERRL, mucous membranes moist Neck: no JVD Respiratory: Present: Decreased Breath Sounds Cardiology: regular, S1S2 Gastrointestinal: normoactive bowel sounds, obese Integumentary: no rash Neurologic: no focal deficit, alert and oriented x3, strength 5/5, CN 3-12 intact Psychiatric: mood/affect appropriate, cooperative - Lab 03/08/22 09:44 03/17/22 04:00 Most recent lab results ABG pH 7.316 pH Units (7.350-7.450) L 03/11/22 10:35 ABG pCO2 54.7 mm Hg 03/11/22 10:35 ABG pO2 81.0 mm Hg (80.0-90.0) 03/11/22 10:35 ABG HCO3 27.3 mmol/L (20.0-26.0) H 03/11/22 10:35 ABG O2 Saturation 95.0 % (95.0-99.0) 03/11/22 10:35 Calcium 8.5 mg/dL (8.4-10.2) 03/17/22 04:00 Urine Creatinine 41.2 mg/dL (0.1-20.0) H 03/04/22 17:35 Urine Sodium 126 mmol/L 03/04/22 17:35 Urine Total Protein 16 mg/dL (5-11.8) H 03/04/22 17:35 Medications & Allergies - Medications Allergies/Adverse Reactions: Allergies iodine Allergy (Verified 03/03/22 12:49) Anaphylaxis Penicillins Allergy (Verified 03/03/22 12:49) Anaphylaxis shellfish derived Allergy (Verified 03/03/22 12:49) Anaphylaxis Home Medications: Home Medications Medication Instructions Recorded Confirmed Last Taken Type Acetaminophen [Non-Aspirin Extra 500 mg PO Q8HR PRN 03/04/22 03/04/22 03/01/22 History Strength] Aspirin EC 325 mg PO 4XW 03/04/22 03/04/22 03/02/22 History Hydrocodone-Acetamin 2.5-325 5 - 325 mg PO Q6HR PRN 03/04/22 03/04/22 03/02/22 History Mucus Relief ER 600 mg PO BID 03/04/22 03/05/22 03/02/22 History Omeprazole 40 mg PO DAILY 03/04/22 03/05/22 03/02/22 History Phenazopyridine 200 mg PO TID 03/04/22 03/04/22 03/03/22 History Senna Plus Tablet 8.6 - 50 mg PO BID MDD CONSTIPATION 03/04/22 03/05/22 03/02/22 History Diclofenac Sodium ER 75 mg PO Q8HR 03/05/22 03/05/22 03/02/22 History Nifedipine ER 60 mg PO DAILY 03/05/22 03/05/22 03/02/22 History Vitamin D3 25 mg PO DAILY 03/05/22 03/05/22 03/02/22 History Active Medications: Generic Name Dose Route Start Last Admin Trade Name Freq PRN Reason Stop Dose Admin Acetaminophen 650 mg 03/03/22 20:28 03/15/22 09:14 Acetaminophen 325 Mg Tab PO 650 mg Q4H PRN Administration Pain MILD(1-3)/Fever >100.5/HOFFMAN Cetirizine HCl 10 mg 03/12/22 15:00 03/18/22 10:38 Cetirizine 10 Mg Tab PO 10 mg QDAY VERN Administration Fluticasone Propionate 200 mcg 03/13/22 20:00 03/18/22 10:38 Fluticasone Propionate Nasal [place] 16 Gm NS 200 mcg QDAY VERN Administration Guaifenesin 600 mg 03/12/22 15:00 03/18/22 10:39 Guaifenesin Er 600 Mg Tab PO 600 mg BID VERN Administration Heparin Sodium (Porcine) 7,500 unit 03/16/22 14:00 03/18/22 06:25 Heparin 5,000 Unit/1 Ml Vial SUB-Q 7,500 unit Q8HR VERN Administration Methylprednisolone Sodium Succinate 60 mg 03/15/22 10:00 03/18/22 10:40 Methylprednisolone Sod Succinate 125 Mg/2 Ml Inj IV 60 mg Q12HR VERN Administration Metoclopramide HCl 5 mg 03/11/22 12:00 Metoclopramide 10 Mg/2 Ml Inj IV Q6H PRN Nausea And Vomiting Morphine Sulfate 2 mg 03/03/22 20:28 Morphine 2 Mg/1 Ml Inj IV Q4H PRN Pain, Moderate (4-6) Ondansetron HCl 4 mg 03/03/22 20:28 Ondansetron 4 Mg/2 Ml Inj IV Q8H PRN Nausea And Vomiting Oxycodone/Acetaminophen 1 tab 03/03/22 20:28 03/09/22 12:06 Oxycodone /Acetaminophen 5-325mg Tab PO 1 tab Q6H PRN Administration Pain, Moderate (4-6) Pantoprazole Sodium 40 mg 03/12/22 15:00 03/18/22 10:40 Pantoprazole 40 Mg Tab PO 40 mg QDAC VERN Administration Polyethylene Glycol 17 gm 03/16/22 10:00 03/18/22 10:38 Polyethylene Glycol 3350 17 Gm Powder PO 17 gm QDAY VERN Administration Senna/Docusate Sodium 2 tab 03/06/22 11:00 03/18/22 10:37 Sennosides/Docusate Sodium 8.6/50 Mg Tab PO 2 tab Q12H VERN Administration Sildenafil Citrate 20 mg 03/11/22 14:00 03/18/22 10:40 Sildenafil 20 Mg Tab PO 20 mg TID VERN Administration Sodium Chloride 10 ml 03/03/22 22:00 03/18/22 10:41 Sodium Chloride 0.9% 10 Ml Flush Syringe IV 10 ml BID VERN Administration Sodium Chloride 10 ml 03/03/22 20:28 Sodium Chloride 0.9% 10 Ml Flush Syringe IV PRN PRN LINE FLUSH Torsemide 40 mg 03/17/22 10:00 03/18/22 10:38 Torsemide 10 Mg Tab PO 40 mg DAILY VERN Administration
--- NOTE | 2022-03-18 14:01 | Consultation ---
History of Present Illness - Reason for Consult Consult date: 03/18/22 Peripheral Vascular Disease with Nonhealing Left Foot Ulcer Requesting physician: DRAKE GREENE - History of Present Illness The patient is a 71-year-old female with a history of multiple medical issues who presented to the emergency department with complaints of shortness of breath. She was found to have acute on chronic renal failure with exacerbation of her CHF. She has been medically managed for these medical issues with progressive resolution and improvement of her symptoms as well as her renal failure. She also has a complaint of a nonhealing ulcer on her left foot that she states has been present for about 45 years. She claims that she had a complication after an epidural during a which severely affected her left lower extremity including severe neuropathy. She developed an ulcer on the foot shortly after this complication and has had multiple attempts at int ervention including endovascular and a left femoral to popliteal artery bypass in 2005. She states she also underwent a fusion procedure in her left leg which no longer allows her to bend her knee. She reports that the ulcer has partially healed but has never completely healed and the time period that she developed it. Her most recent plain films suggest osteomyelitis of the calcaneus. She currently has no additional complaints at this time. Past History Past Medical History: diabetes, heart failure, hypertension, PVD, other (Severe obesity with obstructive sleep apnea, pulmonary htn) Past Surgical History: , Other (Multiple debridements of her left foot, multiple endovascular interventions of the left lower extremity, left femoral to popliteal artery bypass) Social history: no significant social history. denies: smoking, alcohol abuse, prescription drug abuse, IV drug use Family history: hypertension Medications and Allergies Allergies Allergy/AdvReac Type Severity Reaction Status Date / Time iodine Allergy Anaphylaxis Verified 03/03/22 12:49 Penicillins Allergy Anaphylaxis Verified 03/03/22 12:49 shellfish derived Allergy Anaphylaxis Verified 03/03/22 12:49 Home Medications Medication Instructions Recorded Confirmed Last Taken Type Acetaminophen [Non-Aspirin Extra 500 mg PO Q8HR PRN 03/04/22 03/04/22 03/01/22 History Strength] Aspirin EC 325 mg PO 4XW 03/04/22 03/04/22 03/02/22 History Hydrocodone-Acetamin 2.5-325 5 - 325 mg PO Q6HR PRN 03/04/22 03/04/2203/02/22 History Mucus Relief ER 600 mg PO BID 03/04/22 03/05/22 03/02/22 History Omeprazole 40 mg PO DAILY 03/04/22 03/05/22 03/02/22 History Phenazopyridine 200 mg PO TID 03/04/22 03/04/22 03/03/22 History Senna Plus Tablet 8.6 - 50 mg PO BID MDD CONSTIPATION 03/04/22 03/05/22 03/02/22 History Diclofenac Sodium ER 75 mg PO Q8HR 03/05/22 03/05/22 03/02/22 History Nifedipine ER 60 mg PO DAILY 03/05/22 03/05/22 03/02/22 History Vitamin D3 25 mg PO DAILY 03/05/22 03/05/22 03/02/22 History Active Meds: Active Medications Acetaminophen (Acetaminophen 325 Mg Tab) 650 mg PO Q4H PRN PRN Reason: Pain MILD(1-3)/Fever >100.5/HOFFMAN Last Admin: 03/15/22 09:14 Dose: 650 mg Cetirizine HCl (Cetirizine 10 Mg Tab) 10 mg PO QDAY [facility] Last Admin: 03/18/22 10:38 Dose: 10 mg Fluticasone Propionate (Fluticasone Propionate Nasal [place] 16 Gm) 200 mcg NS QDAY [facility] Last Admin: 03/18/22 10:38 Dose: 200 mcg Guaifenesin (Guaifenesin Er 600 Mg Tab) 600 mg PO BID [facility] Last Admin: 03/18/22 10:39 Dose: 600 mg Heparin Sodium (Porcine) (Heparin 5,000 Unit/1 Ml Vial) 7,500 unit SUB-Q Q8HR [facility] Last Admin: 03/18/22 06:25 Dose: 7,500 unit Methylprednisolone Sodium Succinate (Methylprednisolone Sod Succinate 125 Mg/2 Ml Inj) 60 mg IV Q12HR [facility] Last Admin: 03/18/22 10:40 Dose: 60 mg Metoclopramide HCl (Metoclopramide 10 Mg/2 Ml Inj) 5 mg IV Q6H PRN PRN Reason: Nausea And Vomiting Morphine Sulfate (Morphine 2 Mg/1 Ml Inj) 2 mg IV Q4H PRN PRN Reason: Pain, Moderate (4-6) Ondansetron HCl (Ondansetron 4 Mg/2 Ml Inj) 4 mg IV Q8H PRN PRN Reason: Nausea And Vomiting Oxycodone/Acetaminophen (Oxycodone /Acetaminophen 5-325mg Tab) 1 tab PO Q6H PRN PRN Reason: Pain, Moderate (4-6) Last Admin: 03/09/22 12:06 Dose: 1 tab Pantoprazole Sodium (Pantoprazole 40 Mg Tab) 40 mg PO QDAC [facility] Last Admin: 03/18/22 10:40 Dose: 40 mg Polyethylene Glycol (Polyethylene Glycol 3350 17 Gm Powder) 17 gm PO QDAY [facility] Last Admin: 03/18/22 10:38 Dose: 17 gm Senna/Docusate Sodium (Sennosides/Docusate Sodium 8.6/50 Mg Tab) 2 tab PO Q12H [facility] Last Admin: 03/18/22 10:37 Dose: 2 tab Sildenafil Citrate (Sildenafil 20 Mg Tab) 20 mg PO TID [facility] Last Admin: 03/18/22 10:40 Dose: 20 mg Sodium Chloride (Sodium Chloride 0.9% 10 Ml Flush Syringe) 10 ml IV BID [facility] Last Admin: 03/18/22 10:41 Dose: 10 ml Sodium Chloride (Sodium Chloride 0.9% 10 Ml Flush Syringe) 10 ml IV PRN PRN PRN Reason: LINE FLUSH Torsemide (Torsemide 10 Mg Tab) 40 mg PO DAILY [facility] Last Admin: 03/18/22 10:38 Dose: 40 mg Review of Systems All systems: negative Exam - Constitutional Vitals: Temp Pulse Resp BP Pulse Ox 97.4 F L 55 L 18 133/74 94 03/18/22 08:24 03/18/22 10:00 03/18/22 08:24 03/18/22 08:24 03/18/22 13:20 General appearance: Present: no acute distress, other (On high flow oxygen through nasal cannula) - Neck Neck: Present: supple - Respiratory Respiratory effort: normal - Cardiovascular Rhythm: regular - Extremities Extremities: pulses intact (Palpable DP and PT on the right), abnormal (Dermatosclerosis of the left lower extremity) Extremity abnormal: ulceration (Ulcer on the plantar surface of the left foot without overt signs of infection), pulses diminished (Nonpalpable left pedal pulses) - Abdominal General gastrointestinal: Present: soft Female genitourinary: Present: deferred - Rectal Rectal Exam: deferred Results - Labs CBC & Chem 7: 03/08/22 09:44 03/17/22 04:00 Assessment and Plan The patient is a 71-year-old female with a history of a nonhealing left foot ulcer and peripheral vascular disease. Her last procedure was a femoropopliteal in 2005 however her recent arterial duplex demonstrated that femoropopliteal is occluded and she has occlusion of the SFA and popliteal artery. Additionally there is monophasic flow within the external iliac to suggest aortoiliac occlus kofi disease. The patient is in need of an arteriogram with possible intervention to improve flow to her foot however given her acute on chronic renal failure we will wait until she is back to her baseline prior to proceeding. Additionally it will require a combination of CO2 and minimal contrast to perform the revised. I also discussed with the patient the need for offloading pressure on the foot and she states she has a Darco heel offloading boot. I explained that even if she has a successful revascularization the foot will not heal if she continues to apply pressure. I also discussed the risk and benefits as well as the alternatives of an angiogram including the possibility of worsening of her renal function. The patient has expressed understanding of the plan and would like to proceed when she is medically cleared.
--- NOTE | 2022-03-18 14:10 | Progress Note ---
Assessment and Plan 71 y/o female with severe pulm htn and Eliseo with acute on chronic respiratory failure. 03/18/22: consider checking CBC with diff. Continue Sildenafil for now. Needs RHC to assess if true Type 1 Pulm HTN. Overall prognosis is guarded to poor. 03/17/22: Given increase in O2 requirement, will hold on dropping steroids today. Otherwise, same recs as the day before. 03/16/22: Will drop steroids to daily starting tomorrow. Continue TID Sildenafil. Reviewed Social work note. There is no debate about therapy. The only safe thing that can be administered at this time is sildenafil three times daily which she is tolerating. No further therapy would be started without RHC number. I reviewed a CM note from 2 days prior that states [facility] would be willing to accept what is documented as 30 liters of flow. Patient is now on 20. Would continue daily net negative state as long as blood pressure and renal function will allow. Continue to wean FiO2 as tolerated for sats >88% 03/15/22: Decreased steroids to BID. Continue Sildenafil at current dosing. Continue daily net negative state if possible and wean FiO2 for sats >88%. Still feel patient would benefit from right and left heart cath if able to be weaned off HFNC and able to lie flat. 03/09/22: Without an exact cause for her Pulm HTN, would be difficult to say if there is anything else that could be done for her severe pulm HTN. If this is truly worsening of lung disease, given the rate that it has happened, even treatment of COPD would not improve quality of life significantly. If she has developed type 1 pulmonary HTN, she would need at least 2-3 drug therapy and she may not tolerate this as well given her age and current clinical status. A right and left heart cath would be necessary before determination of this degree of therapy. Do not disagree with hospice referral again. Has been on steroid therapy less than 24 hours. Would continue to see if any benefit. Prognosis still remains guarded. 03/08/22: Last time this patient was seen in our office was 2015. At that time she only had mild COPD. Unable to obtain repeat divina at this time. She did not smoke since being on hospice care and was recently discharged secondary to lack of further decline (although one could argue for it now). Will attempt steroid therapy to see if this improves oxygen requirement, however as stated earlier, patient may benefit from right heart cath with drug study if no improvement on steroids. V/Q done but was not ordered looking for acute PE but more for concern for CTEPH. Guarded prognosis. 03/07/22: No new recs. Will find old office notes today to see the last time we saw this patient. 03/06/22: CXR read by rads suggest unchanged edema. Agree with continued diuresis and fluid restriction. Wean Vent for sats >88%. Continue NIV therapy at night 1. Cardiology following. This degree of Pulm HTN is not seen with just ELISEO alone, especially in someone who is compliant with therapy. Defer to cards but would consider right heart cath if not already done previously 2. Continue bipap therapy at night as well as PRN during the day. Patient does not know her settings for her machine at home and my office did not manipulate these numbers last. Will titrate sat of >88% and comfort 3. Agree with continued diuresis, CXR shows continued vascular congestion, maybe slightly better, maybe 4. Wean FiO2 for sats >88% Subjective Date of service: 03/18/22 Principal diagnosis: Hypoxic respiratory failure Interval history: Still on HFNC. Per RT not able to wean. Renal changing to oral diuretic therapy now. Objective Vital Signs - 12hr 03/18/22 03/18/22 03/18/22 02:25 04:47 08:24 Temperature 97.4 F L 97.4 F L Pulse Rate 69 67 60 Pulse Rate [ From Monitor] Respiratory 19 17 18 Rate Blood Pressure 133/74 Blood Pressure 150/75 [Left] O2 Sat by Pulse 96 93 98 Oximetry 03/18/22 03/18/22 10:00 13:20 Temperature Pulse Rate 55 L Pulse Rate [ 55 L From Monitor] Respiratory Rate Blood Pressure Blood Pressure [Left] O2 Sat by Pulse 93 94 Oximetry Constitutional: no acute distress, alert, other (obese) Eyes: non-icteric ENT: oropharynx moist Neck: supple, other (obese) Effort: mildly labored Ascultation: Bilateral: diminished breath sounds, rales Percussion: Bilateral: not dull Cardiovascular: regular rate and rhythm (no mrg) Gastrointestinal: normoactive bowel sounds, soft, non-tender, non-distended Integumentary: normal Extremities: no cyanosis, no edema, pink and warm Neurologic: normal mental status, non-focal exam, pupils equal and round Psychiatric: mood appropriate, affect normal CBC and BMP: 03/08/22 09:44 03/17/22 04:00 ABG, PT/INR, D-dimer: ABG ABG pH 7.316 pH Units (7.350-7.450) L 03/11/22 10:35 ABG pCO2 54.7 mm Hg 03/11/22 10:35 ABG pO2 81.0 mm Hg (80.0-90.0) 03/11/22 10:35 ABG O2 Saturation 95.0 % (95.0-99.0) 03/11/22 10:35 Abnormal lab findings: Abnormal Labs 03/03/22 03/03/22 03/03/22 13:34 13:34 13:34 RDW 16.1 H Lymph % (Auto) 9.7 L Lymph # (Auto) 0.8 L Seg Neutrophils % 84.6 H ABG pH ABG HCO3 Oxyhemoglobin Sodium Potassium Chloride BUN 47 H Creatinine 1.7 H Glucose 101 H ALT NT-Pro-B Natriuret Pep 21980 H Total Protein 9.1 H Albumin 3.5 L Urine WBC (Auto) Urine Creatinine Urine Total Protein 03/04/22 03/04/22 03/04/22 02:51 03:05 17:35 RDW 16.0 H Lymph % (Auto) 8.9 L Lymph # (Auto) 0.8 L Seg Neutrophils % 84.1 H ABG pH ABG HCO3 Oxyhemoglobin Sodium Potassium Chloride BUN 46 H Creatinine 1.8 H Glucose 119 H ALT 6 L NT-Pro-B Natriuret Pep Total Protein 8.4 H Albumin 3.4 L Urine WBC (Auto) 11.0 H Urine Creatinine Urine Total Protein 03/04/22 03/05/22 03/05/22 17:35 12:08 15:18 RDW Lymph % (Auto) Lymph # (Auto) Seg Neutrophils % ABG pH ABG HCO3 Oxyhemoglobin Sodium Potassium 6.4 H* D Chloride BUN 55 H 55 H Creatinine 2.0 H 2.0 H Glucose 120 H 116 H ALT NT-Pro-B Natriuret Pep Total Protein Albumin Urine WBC (Auto) Urine Creatinine 41.2 H Urine Total Protein 16 H 03/06/22 03/08/22 03/08/22 05:25 09:44 09:44 RDW 15.9 H Lymph % (Auto) 12.2 L Lymph # (Auto) 0.9 L Seg Neutrophils % 79.5 H ABG pH ABG HCO3 Oxyhemoglobin Sodium Potassium Chloride BUN 58 H 69 H Creatinine 2.1 H 2.3 H Glucose 103 H ALT NT-Pro-B Natriuret Pep Total Protein Albumin Urine WBC (Auto) Urine Creatinine Urine Total Protein 03/08/22 03/09/22 03/10/22 14:36 05:43 07:16 RDW Lymph % (Auto) Lymph # (Auto) Seg Neutrophils % ABG pH ABG HCO3 Oxyhemoglobin Sodium Potassium 5.3 H D Chloride BUN 70 H 82 H 95 H Creatinine 2.4 H 2.5 H 2.3 H Glucose 125 H 149 H 141 H ALT NT-Pro-B Natriuret Pep Total Protein Albumin Urine WBC (Auto) Urine Creatinine Urine Total Protein 03/11/22 03/11/22 03/12/22 06:44 10:35 06:27 RDW Lymph % (Auto) Lymph # (Auto) Seg Neutrophils % ABG pH 7.316 L ABG HCO3 27.3 H Oxyhemoglobin 94.0 L Sodium Potassium Chloride BUN 108 H 113 H Creatinine 2.5 H 2.4 H Glucose 141 H 216 H ALT NT-Pro-B Natriuret Pep Total Protein Albumin Urine WBC (Auto) Urine Creatinine Urine Total Protein 03/13/22 03/14/22 03/15/22 10:19 09:26 07:37 RDW Lymph % (Auto) Lymph # (Auto) Seg Neutrophils % ABG pH ABG HCO3 Oxyhemoglobin Sodium 136 L Potassium Chloride 97.3 L BUN 121 H 131 H 134 H Creatinine 2.4 H 2.6 H 2.5 H Glucose 279 H 146 H 156 H ALT NT-Pro-B Natriuret Pep Total Protein Albumin Urine WBC (Auto) Urine Creatinine Urine Total Protein 03/16/22 03/17/22 05:19 04:00 RDW Lymph % (Auto) Lymph # (Auto) Seg Neutrophils % ABG pH ABG HCO3 Oxyhemoglobin Sodium Potassium Chloride BUN 135 H 129 H Creatinine 2.5 H 2.2 H Glucose 147 H 182 H ALT NT-Pro-B Natriuret Pep Total Protein Albumin Urine WBC (Auto) Urine Creatinine Urine Total Protein
--- NOTE | 2022-03-18 14:24 | Progress Note ---
Assessment and Plan Assessment and plan: #Severe pulmonary arterial hypertension #Acute on chronic hypoxic respiratory failure-improving - baseline oxygen requirements: 5 L nasal cannula - supplemental oxygen: HFNC 25 L / 45% FiO2; will attempt to wean as tolerated Pulmonology following; assistance appreciated - Continue protocol: continue pulse oximetry, wean oxygen as tolerated, ordered incentive spirometry and educated patient on how to use it and its importance - Unremarkable LE dopplers. V/Q scan low probability for PE - CTA of the chest: intersitial edema and central pulmonary arterial enlargement suggest of PAH - continue IV steroids; may benefit from R + L heart cath for further evaluation - Patient is on sildenafil #Left heel ulcer Concern for acute versus chronic osteomyelitis General surgery consulted; pending recs. Follow patient is currently on high flow nasal cannula, making it difficult for the patient to obtain CT versus MRI of lower extremity to evaluate for osteomyelitis. Infectious disease consulted for possible presumed treatment of chronic osteomyelitis. #Acute on chronic diastolic heart failureresolved #Cor pulmonale - Continue CHF exacerbation protocol: Telemetry, Strict I/O, monitor urine output every shift, daily weights, afterload reduction, low-sodium diet, and fluid restriction of approximately 1.5 mL/day - continue PO diuretics - ProBNP on admission: 11,875 - Cardiology following; appreciate recs - TTE (03/04/2022) revealing EF 50-55% with normal-sized LV, lower limits of normal LV systolic function, borderline concentric LVH, severely dilated RV, severely reduced RV systolic function, mildly dilated LA, severely dilated RA, RVSP >95 mmHg, and severe pulmonary hypertension. -Patient is on IV Lasix 40 mg daily #ESBL UTI/cystitis without hematuriaresolved Urinalysis revealing large leukocyte esterase, WBC 11, 1+ bacteria, few budding yeast. - Macrobid discontinued due to worsening renal function, ertapenem x3 doses started per ID recs Infectious disease following, assistance appreciated Continue precautions #Atypical chest painruled out Negative troponin x2 Likely secondary to volume overload in the setting of acute heart failure. #RIN on CKD stage IIIstable SCr 2.4 today Renally dose meds and avoid nephrotoxic drugs Nephrology following; appreciate recs #Mild protein caloric malnutrition Albumin 3.4 Continue dietary supplementation #Morbid obesity #Weight loss counseling #Exercise counseling - BMI 53.1 - Counseled patient on the importance of weight loss, incorporating exercise, and dietary changes (lean meats, fresh fruits and vegetables, and water intake). Patient expresses understanding. - Time: +15 min #Discharge planning - Patient is pending approval for LTAC - Case management has been made aware. Critical Care Billing: The high probability of a clinically significant, sudden or life threatening deterioration of the [respiratory] system(s) required my full and direct attention, intervention and personal management. The aggregate critical care time was [60] minutes. This time is in addition to time spent performing reported procedures but includes the following: [x] Data Review and interpretation [x] Patient assessment and monitoring of vital signs [x] Documentation [x] Medication orders and management Disposition Plan: Pending LTAC placement Total Time Spent with Patient (Minutes): 45 minutes History Interval history: No acute events overnight. Hospitalist Physical - Constitutional Vitals: Temp Pulse Resp BP Pulse Ox 97.4 F L 55 L 18 133/74 94 03/18/22 08:24 03/18/22 10:00 03/18/22 08:24 03/18/22 08:24 03/18/22 13:20 General appearance: Present: no acute distress, obese, other (On high flow oxygen through nasal cannula) - EENT Eyes: Present: PERRL, EOM intact ENT: hearing intact, clear oral mucosa, dentition normal - Neck Neck: Present: supple, normal ROM - Respiratory Respiratory effort: normal Respiratory: bilateral: diminished (High flow nasal cannula 25 L / 45% FiO2) - Cardiovascular Rhythm: regular Heart Sounds: Present: S1 & S2 - Extremities Extremities: no ischemia, pulses intact, pulses symmetrical, No edema, normal temperature, normal color Peripheral Pulses: within normal limits - Abdominal General gastrointestinal: soft, non-tender, non-distended, normal bowel sounds - Integumentary Integumentary: Present: clear, warm, dry - Psychiatric Psychiatric: appropriate mood/affect, cooperative - Neurologic Neurologic: CNII-XII intact - Allied Health Allied health notes reviewed: nursing HEART Score - HEART Score Age: > 65 Risk factors: 1-2 risk factors Troponin: Troponin T < 0.010 ng/mL (0.00-0.029) 03/03/22 13:34 Troponin: < normal limit - Critical Actions Critical Actions: 4-6 pts:12-16.6% risk of adverse cardiac event. Should be admitted Results - Labs CBC & Chem 7: 03/08/22 09:44 03/17/22 04:00 Labs: Laboratory Last Values WBC 7.6 K/mm3 (4.5-11.0) 03/08/22 09:44 RBC 4.57 M/mm3 (3.65-5.03) 03/08/22 09:44 Hgb 13.3 gm/dl (10.1-14.3) 03/08/22 09:44 Hct 41.7 % (30.3-42.9) 03/08/22 09:44 MCV 91 fl (79-97) 03/08/22 09:44 MCH 29 pg (28-32) 03/08/22 09:44 MCHC 32 % (30-34) 03/08/22 09:44 RDW 15.9 % (13.2-15.2) H 03/08/22 09:44 Plt Count 207 K/mm3 (140-440) 03/08/22 09:44 Lymph % (Auto) 12.2 % (13.4-35.0) L 03/08/22 09:44 [place] % (Auto) 4.6 % (0.0-7.3) 03/08/22 09:44 Eos % (Auto) 3.0 % (0.0-4.3) 03/08/22 09:44 Baso % (Auto) 0.7 % (0.0-1.8) 03/08/22 09:44 Lymph # (Auto) 0.9 K/mm3 (1.2-5.4) L 03/08/22 09:44 [place] # (Auto) 0.4 K/mm3 (0.0-0.8) 03/08/22 09:44 Eos # (Auto) 0.2 K/mm3 (0.0-0.4) 03/08/22 09:44 Baso # (Auto) 0.1 K/mm3 (0.0-0.1) 03/08/22 09:44 Seg Neutrophils % 79.5 % (40.0-70.0) H 03/08/22 09:44 Seg Neutrophils # 6.0 K/mm3 (1.8-7.7) 03/08/22 09:44 ABG pH 7.316 pH Units (7.350-7.450) L 03/11/22 10:35 ABG pCO2 54.7 mm Hg 03/11/22 10:35 ABG pO2 81.0 mm Hg (80.0-90.0) 03/11/22 10:35 ABG HCO3 27.3 mmol/L (20.0-26.0) H 03/11/22 10:35 ABG O2 Saturation 95.0 % (95.0-99.0) 03/11/22 10:35 ABG O2 Content 18.1 (0.0-44) 03/11/22 10:35 ABG Base Excess 0.2 mmol/L (-2.0-3.0) 03/11/22 10:35 ABG Hemoglobin 13.7 gm/dl (12.0-16.0) 03/11/22 10:35 ABG Carboxyhemoglobin 0.7 % (0.0-5.0) 03/11/22 10:35 ABG Methemoglobin 0.4 % (0.0-1.5) 03/11/22 10:35 Oxyhemoglobin 94.0 % (95.0-99.0) L 03/11/22 10:35 FiO2 90 % 03/11/22 10:35 Sodium 143 mmol/L (137-145) 03/17/22 04:00 Potassium 4.3 mmol/L (3.6-5.0) 03/17/22 04:00 Chloride 105.5 mmol/L (98-107) 03/17/22 04:00 Carbon Dioxide 24 mmol/L (22-30) 03/17/22 04:00 Anion Gap 18 mmol/L 03/17/22 04:00 BUN 129 mg/dL (7-17) H 03/17/22 04:00 Creatinine 2.2 mg/dL (0.6-1.2) H 03/17/22 04:00 Estimated GFR 27 ml/min 03/17/22 04:00 BUN/Creatinine Ratio 59 % 03/17/22 04:00 Glucose 182 mg/dL (65-100) H 03/17/22 04:00 Calcium 8.5 mg/dL (8.4-10.2) 03/17/22 04:00 Total Bilirubin 0.60 mg/dL (0.1-1.2) 03/04/22 02:51 AST 12 units/L (5-40) 03/04/22 02:51 ALT 6 units/L (7-56) L 03/04/22 02:51 Alkaline Phosphatase 91 units/L (35-129) 03/04/22 02:51 Troponin T < 0.010 ng/mL (0.00-0.029) 03/03/22 13:34 NT-Pro-B Natriuret Pep 97654 pg/mL (0-900) H 03/03/22 13:34 Total Protein 8.4 g/dL (6.3-8.2) H 03/04/22 02:51 Albumin 3.4 g/dL (3.9-5) L 03/04/22 02:51 Albumin/Globulin Ratio 0.7 % 03/04/22 02:51 Urine Color Yellow (Yellow) 03/04/22 17:35 Urine Turbidity Slightly-cloudy (Clear) 03/04/22 17:35 Urine pH 6.0 (5.0-7.0) 03/04/22 17:35 Ur Specific [place] 1.008 (1.003-1.030) 03/04/22 17:35 Urine Protein <15 mg/dl mg/dL (Negative) 03/04/22 17:35 Urine Glucose (UA) Neg mg/dL (Negative) 03/04/22 17:35 Urine Ketones Neg mg/dL (Negative) 03/04/22 17:35 Urine Blood Mod (Negative) 03/04/22 17:35 Urine Nitrite Neg (Negative) 03/04/22 17:35 Urine Bilirubin Neg (Negative) 03/04/22 17:35 Urine Urobilinogen < 2.0 mg/dL (<2.0) 03/04/22 17:35 Ur Leukocyte Esterase Lg (Negative) 03/04/22 17:35 Urine WBC (Auto) 11.0 /HPF (0.0-6.0) H 03/04/22 17:35 Urine RBC (Auto) 2.0 /HPF (0.0-6.0) 03/04/22 17:35 U Epithel Cells (Auto) 1.0 /HPF (0-13.0) 03/04/22 17:35 Urine Bacteria (Auto) 1+ /HPF (Negative) 03/04/22 17:35 Urine Mucus Few /HPF 03/04/22 17:35 Urine Yeast (Budding) Few /HPF 03/04/22 17:35 Urine Creatinine 41.2 mg/dL (0.1-20.0) H 03/04/22 17:35 Urine Sodium 126 mmol/L 03/04/22 17:35 Urine Total Protein 16 mg/dL (5-11.8) H 03/04/22 17:35 Coronavirus (PCR) Negative (Negative) 03/04/22 09:57 Gale/IV: Voiding Method External Female Catheter Active Medications - Current Medications Current Medications: Generic Name Dose Route Start Last Admin Trade Name Freq PRN Reason Stop Dose Admin Acetaminophen 650 mg 03/03/22 20:28 03/15/22 09:14 Acetaminophen 325 Mg Tab PO 650 mg Q4H PRN Administration Pain MILD(1-3)/Fever >100.5/HOFFMAN Cetirizine HCl 10 mg 03/12/22 15:00 03/18/22 10:38 Cetirizine 10 Mg Tab PO 10 mg QDAY VERN Administration Fluticasone Propionate 200 mcg 03/13/22 20:00 03/18/22 10:38 Fluticasone Propionate Nasal [place] 16 Gm NS 200 mcg QDAY VERN Administration Guaifenesin 600 mg 03/12/22 15:00 03/18/22 10:39 Guaifenesin Er 600 Mg Tab PO 600 mg BID VERN Administration Heparin Sodium (Porcine) 7,500 unit 03/16/22 14:00 03/18/22 14:11 Heparin 5,000 Unit/1 Ml Vial SUB-Q 7,500 unit Q8HR VERN Administration Methylprednisolone Sodium Succinate 60 mg 03/15/22 10:00 03/18/22 10:40 Methylprednisolone Sod Succinate 125 Mg/2 Ml Inj IV 60 mg Q12HR VERN Administration Metoclopramide HCl 5 mg 03/11/22 12:00 Metoclopramide 10 Mg/2 Ml Inj IV Q6H PRN Nausea And Vomiting Morphine Sulfate 2 mg 03/03/22 20:28 Morphine 2 Mg/1 Ml Inj IV Q4H PRN Pain, Moderate (4-6) Ondansetron HCl 4 mg 03/03/22 20:28 Ondansetron 4 Mg/2 Ml Inj IV Q8H PRN Nausea And Vomiting Oxycodone/Acetaminophen 1 tab 03/03/22 20:28 03/09/22 12:06 Oxycodone /Acetaminophen 5-325mg Tab PO 1 tab Q6H PRN Administration Pain, Moderate (4-6) Pantoprazole Sodium 40 mg 03/12/22 15:00 03/18/22 10:40 Pantoprazole 40 Mg Tab PO 40 mg QDAC VERN Administration Polyethylene Glycol 17 gm 03/16/22 10:00 03/18/22 10:38 Polyethylene Glycol 3350 17 Gm Powder PO 17 gm QDAY VERN Administration Senna/Docusate Sodium 2 tab 03/06/22 11:00 03/18/22 10:37 Sennosides/Docusate Sodium 8.6/50 Mg Tab PO 2 tab Q12H VERN Administration Sildenafil Citrate 20 mg 03/11/22 14:00 03/18/22 14:10 Sildenafil 20 Mg Tab PO 20 mg TID VERN Administration Sodium Chloride 10 ml 03/03/22 22:00 03/18/22 10:41 Sodium Chloride 0.9% 10 Ml Flush Syringe IV 10 ml BID VERN Administration Sodium Chloride 10 ml 03/03/22 20:28 Sodium Chloride 0.9% 10 Ml Flush Syringe IV PRN PRN LINE FLUSH Torsemide 40 mg 03/17/22 10:00 03/18/22 10:38 Torsemide 10 Mg Tab PO 40 mg DAILY VERN Administration Nutrition/Malnutrition Assess - Dietary Evaluation Nutrition/Malnutrition Findings: Nutrition Notes Start: 03/11/22 14:05 Freq: Status: Active Protocol: Document 03/11/22 14:05 RAOUL (Rec: 03/11/22 14:21 RAOUL [email or web address]) Nutrition Notes Need for Assessment generated from: LOS Initial or Follow up Assessment Current Diagnosis Acute Kidney Injury,CKD(stage I-IV),Respiratory Failure, Malnutrition Other Pertinent Diagnosis HFpEF, Cor Pulmonale, UTI, Cystitis. Current Diet Cardiac -Renal- Diet (from D 03/11). Labs/Tests 03/11: BUN 108, Crea 2.5, Glu 141. Pertinent Medications 03/11: Nutritionally unremarkable. Height 5 ft 3 in Weight 134.7 kg [place] Body Weight (kg) 52.27 BMI 52.6 Intake Prior to Admission Good Weight change and time frame Pt denies having loss body weight [employer]. Weight Status Morbidly Obese Subjective/Other Information RD consult for LOS assessment. Pt's PO intake of meals has been Good (>75%) but fairly tolerated, according to ADL notes. I will prescribe renal modification to current diet to support Pt's RIN/CKD condition during LOS. Pt is on High-Flow Nasal Cannula, O2 saturation @ 96%, according to Physical Assessment History notes. Pt presents an > as signs of concern for skin risk at this time, according to Physical Assessment History notes. Percent of energy/protein needs met: Prescribed Cardiac -Renal- Diet provides for energy/ protein needs (2,230 Kcal/85 g ) during LOS. Burn Absent Trauma Absent GI Symptoms None Food Allergy Yes Skin Integrity/Comment Unspecified dryness and flakiness. Current % PO Good (75-100%) Minimum of two criteria No Fluid Accumulation N/A Reduced Automatic Presser Strength N/A (non-severe) Protein-Calorie Malnutrition N\A #1 Nutrition Diagnosis Altered nutrition-related laboratory values Etiology RIN/CKD III. As Evidenced by Signs and Symptoms 03/11: BUN 108, Crea 2.5. Is patient on ventilator? No Is Patient Ambulatory and/or Out of Bed Yes REE-([facility]-ambulatory/OOB) [ 2386.969 NUTR.[id number]] Kcal/Kg value to use for calculation 10 Approximate Energy Requirements Using 1347 kcal/Kg Calculation Used for Recommendations Kcal/kg Additional Notes Protein: 0.6-0.8 g/Kg AdjBW; 56-75 g/day. Fluids: 1 ml/Kcal, or as per MD. Nutrition Intervention Change Diet Order: Modify to Cardiac -Renal- Diet . Goal #1 Adjust the dietary intervention to better serve Pt's needs and clinical conditions during LOS. Additional Comments Continue monitoring food tolerance, %PO intake of meals , and BM.
--- NOTE | 2022-03-18 15:37 | Progress Note ---
Assessment and Plan 71 year old female with acute on chronic non healing left heel wound with osteomyelitis. Afebrile and stable showing no clinical signs of systemic infection. Will clean wound at bedside. No aggressive debridement indicated at this time as wound is not septic. If needing aggressive debridement in the future, may benefit from arteriogram and subsequent indicated procedures prior to surgical treatment to allow for adequate blood flow for healing. Pt currently has renal insufficiency and not a good candidate for arteriography at this time. Refer to outpatient wound care upon discharge. Pt may be a candidate for hyperbaric therapy. Discussed pathology and treatment options with pt who expressed understanding and agreement. Subjective Date of service: 03/18/22 Narrative: No acute events overnight. Pt has no complaints. Was seen by vascular due to occluded L femoral bypass seen on arterial Doppler. Objective Vital Signs - 12hr 03/18/22 03/18/22 03/18/22 04:47 08:24 10:00 Temperature 97.4 F L 97.4 F L Pulse Rate 67 60 55 L Pulse Rate [ 55 L From Monitor] Respiratory 17 18 Rate Blood Pressure 133/74 Blood Pressure 150/75 [Left] O2 Sat by Pulse 93 98 93 Oximetry 03/18/22 13:20 Temperature Pulse Rate Pulse Rate [ From Monitor] Respiratory Rate Blood Pressure Blood Pressure [Left] O2 Sat by Pulse 94 Oximetry - General physical appearance well developed, no distress, no pain, chronically ill, obese - Eyes PERRL - ENT no hearing loss - Respiratory normal expansion, normal respiratory effort - Abdomen soft, not tender - Integumentary other (Left heel with open wound. Granulation tissue minimal drainage. mild odor. no fluctuance. non tender. probed with q-tip minimal undermining. no purulent pockets appreciated) - Labs 03/08/22 09:44 03/17/22 04:00
[2022-03-18 23:42] LABS: Mean Corpuscular HGB Conc 31 % (30-34); Mean Corpuscular Volume 91 fl (79-97); Platelet Count 160 K/mm3 (140-440); Red Blood Count 5.22 M/mm3 (3.65-5.03); Red Cell Distribution Width 15.9 % (13.2-15.2)
[2022-03-18 23:55] LABS: Hematocrit 47.7 % (30.3-42.9); Hemoglobin 14.9 gm/dl (10.1-14.3)
[2022-03-19 02:55] LABS: Band Neutrophils # (Manual) 0.4 K/mm3; Basophils % (Manual) 0 % (0.0-1.8); Macrocytosis Rare; Platelet Estimate Consistent w Auto; Target Cells Rare; Total Cells Counted 100
[2022-03-19] MEDS: HEPARIN 5,000 UNIT/1 ML VIAL SUB-Q SCH ×3 (05:59→21:01)
[2022-03-19] MEDS: PANTOPRAZOLE 40 MG TAB PO SCH (07:57)
--- NOTE | 2022-03-19 09:37 | Progress Note ---
Assessment and Plan Assessment and plan: #Severe pulmonary arterial hypertension #Acute on chronic hypoxic respiratory failure-improving - baseline oxygen requirements: 5 L nasal cannula - supplemental oxygen: HFNC 25 L / 45% FiO2; will attempt to wean as tolerated Pulmonology following; assistance appreciated - Continue protocol: continue pulse oximetry, wean oxygen as tolerated, ordered incentive spirometry and educated patient on how to use it and its importance - Unremarkable LE dopplers. V/Q scan low probability for PE - CTA of the chest: intersitial edema and central pulmonary arterial enlargement suggest of PAH - continue IV steroids; may benefit from R + L heart cath for further evaluation - Patient is on sildenafil #Left heel ulcer Concern for acute versus chronic osteomyelitis General surgery consulted; appreciate recs. Follow patient is currently on high flow nasal cannula, making it difficult for the patient to obtain CT versus MRI of lower extremity to evaluate for osteomyelitis. Infectious disease consulted for possible presumed treatment of chronic osteo myelitis. #Acute on chronic diastolic heart failureresolved #Cor pulmonale - Continue CHF exacerbation protocol: Telemetry, Strict I/O, monitor urine output every shift, daily weights, afterload reduction, low-sodium diet, and fluid restriction of approximately 1.5 mL/day - continue PO diuretics - ProBNP on admission: 11,875 - Cardiology following; appreciate recs - TTE (03/04/2022) revealing EF 50-55% with normal-sized LV, lower limits of normal LV systolic function, borderline concentric LVH, severely dilated RV, severely reduced RV systolic function, mildly dilated LA, severely dilated RA, RVSP >95 mmHg, and severe pulmonary hypertension. -Patient is on IV Lasix 40 mg daily #Leukocytosis - WBC 18.4 - likely secondary to demarginalization in setting of steroid administration. No intervention at this time. #ESBL UTI/cystitis without hematuriaresolved Urinalysis revealing large leukocyte esterase, WBC 11, 1+ bacteria, few budding yeast. - Macrobid discontinued due to worsening renal function, ertapenem x3 doses s tarted per ID recs Infectious disease following, assistance appreciated Continue precautions #Atypical chest painruled out Negative troponin x2 Likely secondary to volume overload in the setting of acute heart failure. #RIN on CKD stage IIIstable SCr 2.4 today Renally dose meds and avoid nephrotoxic drugs Nephrology following; appreciate recs #Mild protein caloric malnutrition Albumin 3.4 Continue dietary supplementation #Morbid obesity #Weight loss counseling #Exercise counseling - BMI 53.1 - Counseled patient on the importance of weight loss, incorporating exercise, and dietary changes (lean meats, fresh fruits and vegetables, and water intake). Patient expresses understanding. - Time: +15 min #Discharge planning - Patient is pending approval for LTAC - Case management has been made aware. Critical Care Billing: The high probability of a clinically significant, sudden or life threatening deterioration of the [respiratory] system(s) required my full and direct attention, intervention and personal management. The aggregate critical care time was [60] minutes. This time is in addition to time spent performing reported procedures but includes the following: [x] Data Review and interpretation [x] Patient assessment and monitoring of vital signs [x] Documentation [x] Medication orders and management Disposition Plan: Pending LTAC placement Total Time Spent with Patient (Minutes): 30 minutes History Interval history: No acute events overnight. Hospitalist Physical - Constitutional Vitals: Temp Pulse Resp BP Pulse Ox 97.6 F 70 20 126/58 94 03/19/22 07:49 03/19/22 07:49 03/19/22 07:49 03/19/22 07:49 03/19/22 07:49 General appearance: Present: no acute distress, obese, other (On high flow oxygen through nasal cannula) - EENT Eyes: Present: PERRL, EOM intact ENT: hearing intact, clear oral mucosa, dentition normal - Neck Neck: Present: supple, normal ROM - Respiratory Respiratory effort: normal Respiratory: bilateral: diminished (on HFNC 25L/45 FiO2) - Cardiovascular Rhythm: regular Heart Sounds: Present: S1 & S2 - Extremities Extremities: no ischemia, pulses intact, pulses symmetrical, No edema, normal temperature, normal color Peripheral Pulses: within normal limits - Abdominal General gastrointestinal: soft, non-tender, non-distended, normal bowel sounds - Integumentary Integumentary: Present: clear, warm, dry - Psychiatric Psychiatric: appropriate mood/affect, intact judgment & insight, memory intact, cooperative - Neurologic Neurologic: CNII-XII intact, moves all extremities - Allied Health Allied health notes reviewed: nursing, case management HEART Score - HEART Score Age: > 65 Risk factors: 1-2 risk factors Troponin: Troponin T < 0.010 ng/mL (0.00-0.029) 03/03/22 13:34 Troponin: < normal limit - Critical Actions Critical Actions: 4-6 pts:12-16.6% risk of adverse cardiac event. Should be admitted Results - Labs CBC & Chem 7: 03/18/22 23:15 03/17/22 04:00 Labs: Laboratory Last Values WBC 18.4 K/mm3 (4.5-11.0) H 03/18/22 23:15 RBC 5.22 M/mm3 (3.65-5.03) H 03/18/22 23:15 Hgb 14.9 gm/dl (10.1-14.3) H 03/18/22 23:15 Hct 47.7 % (30.3-42.9) H 03/18/22 23:15 MCV 91 fl (79-97) 03/18/22 23:15 MCH 29 pg (28-32) 03/18/22 23:15 MCHC 31 % (30-34) 03/18/22 23:15 RDW 15.9 % (13.2-15.2) H 03/18/22 23:15 Plt Count 160 K/mm3 (140-440) 03/18/22 23:15 Lymph % (Auto) 12.2 % (13.4-35.0) L 03/08/22 09:44 [place] % (Auto) 4.6 % (0.0-7.3) 03/08/22 09:44 Eos % (Auto) 3.0 % (0.0-4.3) 03/08/22 09:44 Baso % (Auto) 0.7 % (0.0-1.8) 03/08/22 09:44 Lymph # (Auto) 0.9 K/mm3 (1.2-5.4) L 03/08/22 09:44 [place] # (Auto) 0.4 K/mm3 (0.0-0.8) 03/08/22 09:44 Eos # (Auto) 0.2 K/mm3 (0.0-0.4) 03/08/22 09:44 Baso # (Auto) 0.1 K/mm3 (0.0-0.1) 03/08/22 09:44 Add Manual Diff Complete 03/18/22 23:15 Total Counted 100 03/18/22 23:15 Seg Neutrophils % Server Systems Administrator 03/18/22 23:15 Seg Neuts % (Manual) 94.0 % (40.0-70.0) H 03/18/22 23:15 Band Neutrophils % 2.0 % 03/18/22 23:15 Lymphocytes % (Manual) 2.0 % (13.4-35.0) L 03/18/22 23:15 Reactive Lymphs % (Man) 0 % 03/18/22 23:15 Monocytes % (Manual) 1.0 % (0.0-7.3) 03/18/22 23:15 Eosinophils % (Manual) 1.0 % (0.0-4.3) 03/18/22 23:15 Basophils % (Manual) 0 % (0.0-1.8) 03/18/22 23:15 Metamyelocytes % 0 % 03/18/22 23:15 Myelocytes % 0 % 03/18/22 23:15 Promyelocytes % 0 % 03/18/22 23:15 Blast Cells % 0 % 03/18/22 23:15 Nucleated RBC % Not Reportable 03/18/22 23:15 Seg Neutrophils # 6.0 K/mm3 (1.8-7.7) 03/08/22 09:44 Seg Neutrophils # Man 17.3 K/mm3 (1.8-7.7) H 03/18/22 23:15 Band Neutrophils # 0.4 K/mm3 03/18/22 23:15 Lymphocytes # (Manual) 0.4 K/mm3 (1.2-5.4) L 03/18/22 23:15 Abs React Lymphs (Man) 0.0 K/mm3 03/18/22 23:15 Monocytes # (Manual) 0.2 K/mm3 (0.0-0.8) 03/18/22 23:15 Eosinophils # (Manual) 0.2 K/mm3 (0.0-0.4) 03/18/22 23:15 Basophils # (Manual) 0.0 K/mm3 (0.0-0.1) 03/18/22 23:15 Metamyelocytes # 0.0 K/mm3 03/18/22 23:15 Myelocytes # 0.0 K/mm3 03/18/22 23:15 Promyelocytes # 0.0 K/mm3 03/18/22 23:15 Blast Cells # 0.0 K/mm3 03/18/22 23:15 WBC Morphology Not Reportable 03/18/22 23:15 Hypersegmented Neuts Not Reportable 03/18/22 23:15 Hyposegmented Neuts Not Reportable 03/18/22 23:15 Hypogranular Neuts Not Reportable 03/18/22 23:15 Smudge Cells Not Reportable 03/18/22 23:15 Toxic Granulation Not Reportable 03/18/22 23:15 Toxic Vacuolation Not Reportable 03/18/22 23:15 Dohle Bodies Not Reportable 03/18/22 23:15 Pelger-Huet Anomaly Not Reportable 03/18/22 23:15 Neptali Rods Not Reportable 03/18/22 23:15 Platelet Estimate Consistent w auto 03/18/22 23:15 Clumped Platelets Not Reportable 03/18/22 23:15 Plt Clumps, EDTA Not Reportable 03/18/22 23:15 Large Platelets Not Reportable 03/18/22 23:15 Giant Platelets Not Reportable 03/18/22 23:15 Platelet Satelliting Not Reportable 03/18/22 23:15 Plt Morphology Comment Not Reportable 03/18/22 23:15 RBC Morphology Not Reportable 03/18/22 23:15 Dimorphic RBCs Not Reportable 03/18/22 23:15 Polychromasia Not Reportable 03/18/22 23:15 Hypochromasia Not Reportable 03/18/22 23:15 Poikilocytosis Not Reportable 03/18/22 23:15 Anisocytosis Not Reportable 03/18/22 23:15 Microcytosis Not Reportable 03/18/22 23:15 Macrocytosis Rare 03/18/22 23:15 Spherocytes Not Reportable 03/18/22 23:15 Pappenheimer Bodies Not Reportable 03/18/22 23:15 Sickle Cells Not Reportable 03/18/22 23:15 Target Cells Rare 03/18/22 23:15 Tear Drop Cells Not Reportable 03/18/22 23:15 Ovalocytes Not Reportable 03/18/22 23:15 Helmet Cells Not Reportable 03/18/22 23:15 Baeza-Arnegard Bodies Not Reportable 03/18/22 23:15 [place] Rings Not Reportable 03/18/22 23:15 [place] Cells Not Reportable 03/18/22 23:15 Bite Cells Not Reportable 03/18/22 23:15 Crenated Cell Not Reportable 03/18/22 23:15 Elliptocytes Not Reportable 03/18/22 23:15 Acanthocytes (Spur) Not Reportable 03/18/22 23:15 Rouleaux Not Reportable 03/18/22 23:15 Hemoglobin C Crystals Not Reportable 03/18/22 23:15 Schistocytes Not Reportable 03/18/22 23:15 Malaria parasites Not Reportable 03/18/22 23:15 Ju[place]arlos Bodies Not Reportable 03/18/22 23:15 Hem Pathologist Commnt No 03/18/22 23:15 ABG pH 7.316 pH Units (7.350-7.450) L 03/11/22 10:35 ABG pCO2 54.7 mm Hg 03/11/22 10:35 ABG pO2 81.0 mm Hg (80.0-90.0) 03/11/22 10:35 ABG HCO3 27.3 mmol/L (20.0-26.0) H 03/11/22 10:35 ABG O2 Saturation 95.0 % (95.0-99.0) 03/11/22 10:35 ABG O2 Content 18.1 (0.0-44) 03/11/22 10:35 ABG Base Excess 0.2 mmol/L (-2.0-3.0) 03/11/22 10:35 ABG Hemoglobin 13.7 gm/dl (12.0-16.0) 03/11/22 10:35 ABG Carboxyhemoglobin 0.7 % (0.0-5.0) 03/11/22 10:35 ABG Methemoglobin 0.4 % (0.0-1.5) 03/11/22 10:35 Oxyhemoglobin 94.0 % (95.0-99.0) L 03/11/22 10:35 FiO2 90 % 03/11/22 10:35 Sodium 143 mmol/L (137-145) 03/17/22 04:00 Potassium 4.3 mmol/L (3.6-5.0) 03/17/22 04:00 Chloride 105.5 mmol/L (98-107) 03/17/22 04:00 Carbon Dioxide 24 mmol/L (22-30) 03/17/22 04:00 Anion Gap 18 mmol/L 03/17/22 04:00 BUN 129 mg/dL (7-17) H 03/17/22 04:00 Creatinine 2.2 mg/dL (0.6-1.2) H 03/17/22 04:00 Estimated GFR 27 ml/min 03/17/22 04:00 BUN/Creatinine Ratio 59 % 03/17/22 04:00 Glucose 182 mg/dL (65-100) H 03/17/22 04:00 Calcium 8.5 mg/dL (8.4-10.2) 03/17/22 04:00 Total Bilirubin 0.60 mg/dL (0.1-1.2) 03/04/22 02:51 AST 12 units/L (5-40) 03/04/22 02:51 ALT 6 units/L (7-56) L 03/04/22 02:51 Alkaline Phosphatase 91 units/L (35-129) 03/04/22 02:51 Troponin T < 0.010 ng/mL (0.00-0.029) 03/03/22 13:34 NT-Pro-B Natriuret Pep 81684 pg/mL (0-900) H 03/03/22 13:34 Total Protein 8.4 g/dL (6.3-8.2) H 03/04/22 02:51 Albumin 3.4 g/dL (3.9-5) L 03/04/22 02:51 Albumin/Globulin Ratio 0.7 % 03/04/22 02:51 Urine Color Yellow (Yellow) 03/04/22 17:35 Urine Turbidity Slightly-cloudy (Clear) 03/04/22 17:35 Urine pH 6.0 (5.0-7.0) 03/04/22 17:35 Ur Specific [place] 1.008 (1.003-1.030) 03/04/22 17:35 Urine Protein <15 mg/dl mg/dL (Negative) 03/04/22 17:35 Urine Glucose (UA) Neg mg/dL (Negative) 03/04/22 17:35 Urine Ketones Neg mg/dL (Negative) 03/04/22 17:35 Urine Blood Mod (Negative) 03/04/22 17:35 Urine Nitrite Neg (Negative) 03/04/22 17:35 Urine Bilirubin Neg (Negative) 03/04/22 17:35 Urine Urobilinogen < 2.0 mg/dL (<2.0) 03/04/22 17:35 Ur Leukocyte Esterase Lg (Negative) 03/04/22 17:35 Urine WBC (Auto) 11.0 /HPF (0.0-6.0) H 03/04/22 17:35 Urine RBC (Auto) 2.0 /HPF (0.0-6.0) 03/04/22 17:35 U Epithel Cells (Auto) 1.0 /HPF (0-13.0) 03/04/22 17:35 Urine Bacteria (Auto) 1+ /HPF (Negative) 03/04/22 17:35 Urine Mucus Few /HPF 03/04/22 17:35 Urine Yeast (Budding) Few /HPF 03/04/22 17:35 Urine Creatinine 41.2 mg/dL (0.1-20.0) H 03/04/22 17:35 Urine Sodium 126 mmol/L 03/04/22 17:35 Urine Total Protein 16 mg/dL (5-11.8) H 03/04/22 17:35 Coronavirus (PCR) Negative (Negative) 03/04/22 09:57 Gale/IV: Voiding Method External Female Catheter Active Medications - Current Medications Current Medications: Generic Name Dose Route Start Last Admin Trade Name Freq PRN Reason Stop Dose Admin Acetaminophen 650 mg 03/03/22 20:28 03/15/22 09:14 Acetaminophen 325 Mg Tab PO 650 mg Q4H PRN Administration Pain MILD(1-3)/Fever >100.5/HOFFMAN Cetirizine HCl 10 mg 03/12/22 15:00 03/18/22 10:38 Cetirizine 10 Mg Tab PO 10 mg QDAY VERN Administration Fluticasone Propionate 200 mcg 03/13/22 20:00 03/18/22 10:38 Fluticasone Propionate Nasal [place] 16 Gm NS 200 mcg QDAY VERN Administration Guaifenesin 600 mg 03/12/22 15:00 03/18/22 21:41 Guaifenesin Er 600 Mg Tab PO 600 mg BID VERN Administration Heparin Sodium (Porcine) 7,500 unit 03/16/22 14:00 03/19/22 05:59 Heparin 5,000 Unit/1 Ml Vial SUB-Q 7,500 unit Q8HR VERN Administration Methylprednisolone Sodium Succinate 60 mg 03/15/22 10:00 03/18/22 21:40 Methylprednisolone Sod Succinate 125 Mg/2 Ml Inj IV 60 mg Q12HR VERN Administration Metoclopramide HCl 5 mg 03/11/22 12:00 Metoclopramide 10 Mg/2 Ml Inj IV Q6H PRN Nausea And Vomiting Morphine Sulfate 2 mg 03/03/22 20:28 Morphine 2 Mg/1 Ml Inj IV Q4H PRN Pain, Moderate (4-6) Ondansetron HCl 4 mg 03/03/22 20:28 Ondansetron 4 Mg/2 Ml Inj IV Q8H PRN Nausea And Vomiting Oxycodone/Acetaminophen 1 tab 03/03/22 20:28 03/09/22 12:06 Oxycodone /Acetaminophen 5-325mg Tab PO 1 tab Q6H PRN Administration Pain, Moderate (4-6) Pantoprazole Sodium 40 mg 03/12/22 15:00 03/18/22 10:40 Pantoprazole 40 Mg Tab PO 40 mg QDAC VERN Administration Polyethylene Glycol 17 gm 03/16/22 10:00 03/18/22 10:38 Polyethylene Glycol 3350 17 Gm Powder PO 17 gm QDAY VERN Administration Senna/Docusate Sodium 2 tab 03/06/22 11:00 03/18/22 21:59 Sennosides/Docusate Sodium 8.6/50 Mg Tab PO Not Given Q12H VERN Sildenafil Citrate 20 mg 03/11/22 14:00 03/18/22 20:06 Sildenafil 20 Mg Tab PO 20 mg TID VERN Administration Sodium Chloride 10 ml 03/03/22 22:00 03/18/22 21:58 Sodium Chloride 0.9% 10 Ml Flush Syringe IV 10 ml BID VERN Administration Sodium Chloride 10 ml 03/03/22 20:28 Sodium Chloride 0.9% 10 Ml Flush Syringe IV PRN PRN LINE FLUSH Torsemide 40 mg 03/17/22 10:00 03/18/22 10:38 Torsemide 10 Mg Tab PO 40 mg DAILY VERN Administration Nutrition/Malnutrition Assess - Dietary Evaluation Nutrition/Malnutrition Findings: Nutrition Notes Start: 03/11/22 14:05 Freq: Status: Active Protocol: Document 03/11/22 14:05 RAOUL (Rec: 03/11/22 14:21 RAOUL [email or web address]) Nutrition Notes Need for Assessment generated from: LOS Initial or Follow up Assessment Current Diagnosis Acute Kidney Injury,CKD(stage I-IV),Respiratory Failure, Malnutrition Other Pertinent Diagnosis HFpEF, Cor Pulmonale, UTI, Cystitis. Current Diet Cardiac -Renal- Diet (from D 03/11). Labs/Tests 03/11: BUN 108, Crea 2.5, Glu 141. Pertinent Medications 03/11: Nutritionally unremarkable. 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 Weight Status Morbidly Obese Subjective/Other Information RD consult for LOS assessment. Pt's PO intake of meals has been Good (>75%) but fairly tolerated, according to ADL notes. I will prescribe renal modification to current diet to support Pt's RIN/CKD condition during LOS. Pt is on High-Flow Nasal Cannula, O2 saturation @ 96%, according to Physical Assessment History notes. Pt presents an > as signs of concern for skin risk at this time, according to Physical Assessment History notes. Percent of energy/protein needs met: Prescribed Cardiac -Renal- Diet provides for energy/ protein needs (2,230 Kcal/85 g ) during LOS. Burn Absent Trauma Absent GI Symptoms None Food Allergy Yes Skin Integrity/Comment Unspecified dryness and flakiness. 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 As Evidenced by Signs and Symptoms 03/11: BUN 108, Crea 2.5. Is patient on ventilator? No Is Patient Ambulatory and/or Out of Bed Yes REE-([place]-St. Jeor-ambulatory/OOB) [ 2386.969 NUTR.[id number]] Kcal/Kg value to use for calculation 10 Approximate Energy Requirements Using 1347 kcal/Kg Calculation Used for Recommendations Kcal/kg Additional Notes Protein: 0.6-0.8 g/Kg AdjBW; 56-75 g/day. Fluids: 1 ml/Kcal, or as per MD. Nutrition Intervention Change Diet Order: Modify to Cardiac -Renal- Diet . Goal #1 Adjust the dietary intervention to better serve Pt's needs and clinical conditions during LOS. Additional Comments Continue monitoring food tolerance, %PO intake of meals , and BM.
[2022-03-19] MEDS: CETIRIZINE 10 MG TAB PO SCH (09:56)
[2022-03-19] MEDS: methylPREDNISolone Sod Succinate 125 MG/2 ML INJ IV SCH ×2 (09:56→21:01)
[2022-03-19] MEDS: TORSEMIDE 10 MG TAB PO SCH (09:57)
[2022-03-19] MEDS: FLUTICASONE PROPIONATE NASAL SPRAY 16 GM NS SCH (09:58)
[2022-03-19] MEDS: guaiFENesin ER 600 MG TAB PO SCH ×2 (09:58→21:01)
[2022-03-19] MEDS: SILDENAFIL 20 MG TAB PO SCH ×3 (09:59→20:55)
[2022-03-19] MEDS: POLYETHYLENE GLYCOL 3350 17 GM POWDER PO SCH (09:59)
--- NOTE | 2022-03-19 10:17 | Event Note ---
Date: 03/19/22 Ordered BMP. Patient will need to be back at baseline renal status for further angiographic evaluation as per prior note.
--- NOTE | 2022-03-19 10:18 | Progress Note ---
Assessment and Plan 1. Acute on chronic right-sided heart failure. 2. Chronic obstructive pulmonary disease 3. Severe pulmonary hypertension 4. Chronic cor pulmonale 5. Morbid obesity 6. Chronic kidney disease stage stage III unspecified Plan. Conservative management continue present medication. Patient is may be a candidate for combination therapy for management of her pulmonary hypertension. Subjective Date of service: 03/19/22 Principal diagnosis: Hypoxic respiratory failure Interval history: No cardiac complains. Objective Vital Signs Temp Pulse Pulse Resp BP BP Pulse Ox 03/19/22 07:49 97.6 F 70 20 126/58 94 03/19/22 04:00 97.4 F L 66 18 134/63 99 03/19/22 02:32 97 03/19/22 00:00 97.5 F L 80 20 124/59 93 03/18/22 22:25 90 21 95 03/18/22 22:00 82 03/18/22 21:08 95 03/18/22 20:15 82 18 92 03/18/22 19:36 98.2 F 20 146/78 03/18/22 16:41 93 H 94 03/18/22 16:40 98.3 F 89 18 128/82 92 03/18/22 15:49 92 03/18/22 13:20 94 03/18/22 12:58 98.0 F 90 18 138/86 93 - Physical Examination General: No Apparent Distress, Other (obesity) HEENT: Positive: PERRL Neck: Positive: neck supple Cardiac: Positive: Regular Rate, S1/S2, S3, S4, PMI, Dilated, Laterally Displaced Lungs: Positive: clear to auscultation, No Wheeze, Rales, Rhonchi Neuro: Positive: Grossly Intact Abdomen: Positive: Soft Skin: Positive: Clear Extremities: Present: edema (Minimal) - Labs and Meds CBC 03/18/22 Range/Units 23:15 WBC 18.4 H (4.5-11.0) K/mm3 RBC 5.22 H (3.65-5.03) M/mm3 Hgb 14.9 H (10.1-14.3) gm/dl Hct 47.7 H (30.3-42.9) % Plt Count 160 (140-440) K/mm3 - Imaging and Cardiology EKG: report reviewed (Sinus tachycardia no acute ST-T wave changes)
--- NOTE | 2022-03-19 11:11 | Progress Note ---
Subjective Date of service: 03/19/22 Principal diagnosis: Hypoxic respiratory failure Interval history: Still on HFNC Objective Vital Signs - 12hr 03/19/22 03/19/22 03/19/22 00:00 02:32 04:00 Temperature 97.5 F L 97.4 F L Pulse Rate 80 66 Respiratory 20 18 Rate Blood Pressure Blood Pressure 124/59 134/63 [Left] O2 Sat by Pulse 93 97 99 Oximetry 03/19/22 07:49 Temperature 97.6 F Pulse Rate 70 Respiratory 20 Rate Blood Pressure 126/58 Blood Pressure [Left] O2 Sat by Pulse 94 Oximetry Constitutional: no acute distress, alert, other (obese) Eyes: non-icteric ENT: oropharynx moist Neck: supple, other (obese) Effort: mildly labored Ascultation: Bilateral: diminished breath sounds, rales Percussion: Bilateral: not dull Cardiovascular: regular rate and rhythm (no mrg) Gastrointestinal: normoactive bowel sounds, soft, non-tender, non-distended Integumentary: normal Extremities: no cyanosis, no edema, pink and warm Neurologic: normal mental status, non-focal exam, pupils equal and round Psychiatric: mood appropriate, affect normal CBC and BMP: 03/18/22 23:15 03/17/22 04:00 ABG, PT/INR, D-dimer: ABG ABG pH 7.316 pH Units (7.350-7.450) L 03/11/22 10:35 ABG pCO2 54.7 mm Hg 03/11/22 10:35 ABG pO2 81.0 mm Hg (80.0-90.0) 03/11/22 10:35 ABG O2 Saturation 95.0 % (95.0-99.0) 03/11/22 10:35 Abnormal lab findings: Abnormal Labs 03/03/22 03/03/22 03/03/22 13:34 13:34 13:34 WBC RBC Hgb Hct RDW 16.1 H Lymph % (Auto) 9.7 L Lymph # (Auto) 0.8 L Seg Neutrophils % 84.6 H Seg Neuts % (Manual) Lymphocytes % (Manual) Seg Neutrophils # Man Lymphocytes # (Manual) ABG pH ABG HCO3 Oxyhemoglobin Sodium Potassium Chloride BUN 47 H Creatinine 1.7 H Glucose 101 H ALT NT-Pro-B Natriuret Pep 82087 H Total Protein 9.1 H Albumin 3.5 L Urine WBC (Auto) Urine Creatinine Urine Total Protein 03/04/22 03/04/22 03/04/22 02:51 03:05 17:35 WBC RBC Hgb Hct RDW 16.0 H Lymph % (Auto) 8.9 L Lymph # (Auto) 0.8 L Seg Neutrophils % 84.1 H Seg Neuts % (Manual) Lymphocytes % (Manual) Seg Neutrophils # Man Lymphocytes # (Manual) ABG pH ABG HCO3 Oxyhemoglobin Sodium Potassium Chloride BUN 46 H Creatinine 1.8 H Glucose 119 H ALT 6 L NT-Pro-B Natriuret Pep Total Protein 8.4 H Albumin 3.4 L Urine WBC (Auto) 11.0 H Urine Creatinine Urine Total Protein 03/04/22 03/05/22 03/05/22 17:35 12:08 15:18 WBC RBC Hgb Hct RDW Lymph % (Auto) Lymph # (Auto) Seg Neutrophils % Seg Neuts % (Manual) Lymphocytes % (Manual) Seg Neutrophils # Man Lymphocytes # (Manual) ABG pH ABG HCO3 Oxyhemoglobin Sodium Potassium 6.4 H* D Chloride BUN 55 H 55 H Creatinine 2.0 H 2.0 H Glucose 120 H 116 H ALT NT-Pro-B Natriuret Pep Total Protein Albumin Urine WBC (Auto) Urine Creatinine 41.2 H Urine Total Protein 16 H 03/06/22 03/08/22 03/08/22 05:25 09:44 09:44 WBC RBC Hgb Hct RDW 15.9 H Lymph % (Auto) 12.2 L Lymph # (Auto) 0.9 L Seg Neutrophils % 79.5 H Seg Neuts % (Manual) Lymphocytes % (Manual) Seg Neutrophils # Man Lymphocytes # (Manual) ABG pH ABG HCO3 Oxyhemoglobin Sodium Potassium Chloride BUN 58 H 69 H Creatinine 2.1 H 2.3 H Glucose 103 H ALT NT-Pro-B Natriuret Pep Total Protein Albumin Urine WBC (Auto) Urine Creatinine Urine Total Protein 03/08/22 03/09/22 03/10/22 14:36 05:43 07:16 WBC RBC Hgb Hct RDW Lymph % (Auto) Lymph # (Auto) Seg Neutrophils % Seg Neuts % (Manual) Lymphocytes % (Manual) Seg Neutrophils # Man Lymphocytes # (Manual) ABG pH ABG HCO3 Oxyhemoglobin Sodium Potassium 5.3 H D Chloride BUN 70 H 82 H 95 H Creatinine 2.4 H 2.5 H 2.3 H Glucose 125 H 149 H 141 H ALT NT-Pro-B Natriuret Pep Total Protein Albumin Urine WBC (Auto) Urine Creatinine Urine Total Protein 03/11/22 03/11/22 03/12/22 06:44 10:35 06:27 WBC RBC Hgb Hct RDW Lymph % (Auto) Lymph # (Auto) Seg Neutrophils % Seg Neuts % (Manual) Lymphocytes % (Manual) Seg Neutrophils # Man Lymphocytes # (Manual) ABG pH 7.316 L ABG HCO3 27.3 H Oxyhemoglobin 94.0 L Sodium Potassium Chloride BUN 108 H 113 H Creatinine 2.5 H 2.4 H Glucose 141 H 216 H ALT NT-Pro-B Natriuret Pep Total Protein Albumin Urine WBC (Auto) Urine Creatinine Urine Total Protein 03/13/22 03/14/22 03/15/22 10:19 09:26 07:37 WBC RBC Hgb Hct RDW Lymph % (Auto) Lymph # (Auto) Seg Neutrophils % Seg Neuts % (Manual) Lymphocytes % (Manual) Seg Neutrophils # Man Lymphocytes # (Manual) ABG pH ABG HCO3 Oxyhemoglobin Sodium 136 L Potassium Chloride 97.3 L BUN 121 H 131 H 134 H Creatinine 2.4 H 2.6 H 2.5 H Glucose 279 H 146 H 156 H ALT NT-Pro-B Natriuret Pep Total Protein Albumin Urine WBC (Auto) Urine Creatinine Urine Total Protein 03/16/22 03/17/22 03/18/22 05:19 04:00 23:15 WBC 18.4 H RBC 5.22 H Hgb 14.9 H Hct 47.7 H RDW 15.9 H Lymph % (Auto) Lymph # (Auto) Seg Neutrophils % Seg Neuts % (Manual) 94.0 H Lymphocytes % (Manual) 2.0 L Seg Neutrophils # Man 17.3 H Lymphocytes # (Manual) 0.4 L ABG pH ABG HCO3 Oxyhemoglobin Sodium Potassium Chloride BUN 135 H 129 H Creatinine 2.5 H 2.2 H Glucose 147 H 182 H ALT NT-Pro-B Natriuret Pep Total Protein Albumin Urine WBC (Auto) Urine Creatinine Urine Total Protein
[2022-03-19] MEDS: SENNOSIDES/DOCUSATE SODIUM 8.6/50 MG TAB PO SCH ×2 (11:58→22:24)
[2022-03-20] MEDS: HEPARIN 5,000 UNIT/1 ML VIAL SUB-Q SCH ×3 (06:00→21:06)
[2022-03-20 06:15] LABS: Calcium 8.4 mg/dL (8.4-10.2)
[2022-03-20] MEDS: PANTOPRAZOLE 40 MG TAB PO SCH (07:04)
[2022-03-20] MEDS: FLUTICASONE PROPIONATE NASAL SPRAY 16 GM NS SCH (09:32)
[2022-03-20] MEDS: guaiFENesin ER 600 MG TAB PO SCH ×2 (09:32→21:06)
[2022-03-20] MEDS: TORSEMIDE 10 MG TAB PO SCH (09:33)
[2022-03-20] MEDS: methylPREDNISolone Sod Succinate 125 MG/2 ML INJ IV SCH ×2 (09:33→21:06)
[2022-03-20] MEDS: SILDENAFIL 20 MG TAB PO SCH ×3 (09:33→20:56)
[2022-03-20] MEDS: CETIRIZINE 10 MG TAB PO SCH (09:33)
[2022-03-20] MEDS: POLYETHYLENE GLYCOL 3350 17 GM POWDER PO SCH (09:34)
[2022-03-20] MEDS ORDERED: DEXTROSE 50% IN WATER (25GM) 50 ML SYRINGE IV PRN (09:46)
--- NOTE | 2022-03-20 09:50 | Progress Note ---
Assessment and Plan Assessment and plan: #Severe pulmonary arterial hypertension #Acute on chronic hypoxic respiratory failure-improving - baseline oxygen requirements: 5 L nasal cannula - supplemental oxygen: HFNC 25 L / 45% FiO2; will attempt to wean as tolerated Pulmonology following; assistance appreciated - Continue protocol: continue pulse oximetry, wean oxygen as tolerated, ordered incentive spirometry and educated patient on how to use it and its importance - Unremarkable LE dopplers. V/Q scan low probability for PE - CTA of the chest: intersitial edema and central pulmonary arterial enlargement suggest of PAH - continue IV steroids; may benefit from R + L heart cath for further evaluation - Patient is on sildenafil #Left heel ulcer Concern for acute versus chronic osteomyelitis General surgery consulted; appreciate recs. Follow patient is currently on high flow nasal cannula, making it difficult for the patient to obtain CT versus MRI of lower extremity to evaluate for osteomyelitis. Infectious disease consulted for possible presumed treatment of chronic osteo myelitis. #Acute on chronic diastolic heart failureresolved #Cor pulmonale - Continue CHF exacerbation protocol: Telemetry, Strict I/O, monitor urine output every shift, daily weights, afterload reduction, low-sodium diet, and fluid restriction of approximately 1.5 mL/day - continue PO diuretics - ProBNP on admission: 11,875 - Cardiology following; appreciate recs - TTE (03/04/2022) revealing EF 50-55% with normal-sized LV, lower limits of normal LV systolic function, borderline concentric LVH, severely dilated RV, severely reduced RV systolic function, mildly dilated LA, severely dilated RA, RVSP >95 mmHg, and severe pulmonary hypertension. -Patient is on IV Lasix 40 mg daily #Leukocytosis - WBC 18.4 - likely secondary to demarginalization in setting of steroid administration. No intervention at this time. #ESBL UTI/cystitis without hematuriaresolved Urinalysis revealing large leukocyte esterase, WBC 11, 1+ bacteria, few budding yeast. - Macrobid discontinued due to worsening renal function, ertapenem x3 doses s tarted per ID recs Infectious disease following, assistance appreciated Continue precautions #Atypical chest painruled out Negative troponin x2 Likely secondary to volume overload in the setting of acute heart failure. #RIN on CKD stage IIIstable SCr 2.4 today Renally dose meds and avoid nephrotoxic drugs Nephrology following; appreciate recs #Mild protein caloric malnutrition Albumin 3.4 Continue dietary supplementation #Morbid obesity #Weight loss counseling #Exercise counseling - BMI 53.1 - Counseled patient on the importance of weight loss, incorporating exercise, and dietary changes (lean meats, fresh fruits and vegetables, and water intake). Patient expresses understanding. - Time: +15 min #Discharge planning - Patient is pending approval for LTAC - Case management has been made aware. Critical Care Billing: The high probability of a clinically significant, sudden or life threatening deterioration of the [respiratory] system(s) required my full and direct attention, intervention and personal management. The aggregate critical care time was [60] minutes. This time is in addition to time spent performing reported procedures but includes the following: [x] Data Review and interpretation [x] Patient assessment and monitoring of vital signs [x] Documentation [x] Medication orders and management Disposition Plan: Pending LTAC placement Total Time Spent with Patient (Minutes): 45 minutes History Interval history: No acute events overnight. Hospitalist Physical - Constitutional Vitals: Temp Pulse Resp BP Pulse Ox 97.5 F L 68 18 117/64 96 03/20/22 08:17 03/20/22 08:17 03/20/22 08:17 03/20/22 08:17 03/20/22 08:17 General appearance: Present: no acute distress, obese, other (On high flow oxygen through nasal cannula) - EENT Eyes: Present: PERRL, EOM intact ENT: hearing intact, clear oral mucosa, dentition normal - Neck Neck: Present: supple, normal ROM - Respiratory Respiratory effort: normal Respiratory: bilateral: diminished (on HFNC 25/45) - Cardiovascular Rhythm: regular Heart Sounds: Present: S1 & S2 - Extremities Extremities: no ischemia, pulses intact, pulses symmetrical, No edema, normal temperature, normal color Extremity abnormal: ulceration (Nonhealing ulceration of left heel) Peripheral Pulses: within normal limits - Abdominal General gastrointestinal: soft, non-tender, non-distended, normal bowel sounds - Integumentary Integumentary: Present: clear, warm, dry - Psychiatric Psychiatric: appropriate mood/affect, cooperative, other (Limited insight regarding overall prognosis based off of conversations she has had with family) - Neurologic Neurologic: CNII-XII intact, moves all extremities - Allied Health Allied health notes reviewed: nursing HEART Score - HEART Score Age: > 65 Risk factors: 1-2 risk factors Troponin: Troponin T < 0.010 ng/mL (0.00-0.029) 03/03/22 13:34 Troponin: < normal limit - Critical Actions Critical Actions: 4-6 pts:12-16.6% risk of adverse cardiac event. Should be admitted Results - Labs CBC & Chem 7: 03/18/22 23:15 03/20/22 05:14 Labs: Laboratory Last Values WBC 18.4 K/mm3 (4.5-11.0) H 03/18/22 23:15 RBC 5.22 M/mm3 (3.65-5.03) H 03/18/22 23:15 Hgb 14.9 gm/dl (10.1-14.3) H 03/18/22 23:15 Hct 47.7 % (30.3-42.9) H 03/18/22 23:15 MCV 91 fl (79-97) 03/18/22 23:15 MCH 29 pg (28-32) 03/18/22 23:15 MCHC 31 % (30-34) 03/18/22 23:15 RDW 15.9 % (13.2-15.2) H 03/18/22 23:15 Plt Count 160 K/mm3 (140-440) 03/18/22 23:15 Lymph % (Auto) 12.2 % (13.4-35.0) L 03/08/22 09:44 [place] % (Auto) 4.6 % (0.0-7.3) 03/08/22 09:44 Eos % (Auto) 3.0 % (0.0-4.3) 03/08/22 09:44 Baso % (Auto) 0.7 % (0.0-1.8) 03/08/22 09:44 Lymph # (Auto) 0.9 K/mm3 (1.2-5.4) L 03/08/22 09:44 [place] # (Auto) 0.4 K/mm3 (0.0-0.8) 03/08/22 09:44 Eos # (Auto) 0.2 K/mm3 (0.0-0.4) 03/08/22 09:44 Baso # (Auto) 0.1 K/mm3 (0.0-0.1) 03/08/22 09:44 Add Manual Diff Complete 03/18/22 23:15 Total Counted 100 03/18/22 23:15 Seg Neutrophils % Career Technical Education Instructor 03/18/22 23:15 Seg Neuts % (Manual) 94.0 % (40.0-70.0) H 03/18/22 23:15 Band Neutrophils % 2.0 % 03/18/22 23:15 Lymphocytes % (Manual) 2.0 % (13.4-35.0) L 03/18/22 23:15 Reactive Lymphs % (Man) 0 % 03/18/22 23:15 Monocytes % (Manual) 1.0 % (0.0-7.3) 03/18/22 23:15 Eosinophils % (Manual) 1.0 % (0.0-4.3) 03/18/22 23:15 Basophils % (Manual) 0 % (0.0-1.8) 03/18/22 23:15 Metamyelocytes % 0 % 03/18/22 23:15 Myelocytes % 0 % 03/18/22 23:15 Promyelocytes % 0 % 03/18/22 23:15 Blast Cells % 0 % 03/18/22 23:15 Nucleated RBC % Not Reportable 03/18/22 23:15 Seg Neutrophils # 6.0 K/mm3 (1.8-7.7) 03/08/22 09:44 Seg Neutrophils # Man 17.3 K/mm3 (1.8-7.7) H 03/18/22 23:15 Band Neutrophils # 0.4 K/mm3 03/18/22 23:15 Lymphocytes # (Manual) 0.4 K/mm3 (1.2-5.4) L 03/18/22 23:15 Abs React Lymphs (Man) 0.0 K/mm3 03/18/22 23:15 Monocytes # (Manual) 0.2 K/mm3 (0.0-0.8) 03/18/22 23:15 Eosinophils # (Manual) 0.2 K/mm3 (0.0-0.4) 03/18/22 23:15 Basophils # (Manual) 0.0 K/mm3 (0.0-0.1) 03/18/22 23:15 Metamyelocytes # 0.0 K/mm3 03/18/22 23:15 Myelocytes # 0.0 K/mm3 03/18/22 23:15 Promyelocytes # 0.0 K/mm3 03/18/22 23:15 Blast Cells # 0.0 K/mm3 03/18/22 23:15 WBC Morphology Not Reportable 03/18/22 23:15 Hypersegmented Neuts Not Reportable 03/18/22 23:15 Hyposegmented Neuts Not Reportable 03/18/22 23:15 Hypogranular Neuts Not Reportable 03/18/22 23:15 Smudge Cells Not Reportable 03/18/22 23:15 Toxic Granulation Not Reportable 03/18/22 23:15 Toxic Vacuolation Not Reportable 03/18/22 23:15 Dohle Bodies Not Reportable 03/18/22 23:15 Pelger-Huet Anomaly Not Reportable 03/18/22 23:15 Neptali Rods Not Reportable 03/18/22 23:15 Platelet Estimate Consistent w auto 03/18/22 23:15 Clumped Platelets Not Reportable 03/18/22 23:15 Plt Clumps, EDTA Not Reportable 03/18/22 23:15 Large Platelets Not Reportable 03/18/22 23:15 Giant Platelets Not Reportable 03/18/22 23:15 Platelet Satelliting Not Reportable 03/18/22 23:15 Plt Morphology Comment Not Reportable 03/18/22 23:15 RBC Morphology Not Reportable 03/18/22 23:15 Dimorphic RBCs Not Reportable 03/18/22 23:15 Polychromasia Not Reportable 03/18/22 23:15 Hypochromasia Not Reportable 03/18/22 23:15 Poikilocytosis Not Reportable 03/18/22 23:15 Anisocytosis Not Reportable 03/18/22 23:15 Microcytosis Not Reportable 03/18/22 23:15 Macrocytosis Rare 03/18/22 23:15 Spherocytes Not Reportable 03/18/22 23:15 Pappenheimer Bodies Not Reportable 03/18/22 23:15 Sickle Cells Not Reportable 03/18/22 23:15 Target Cells Rare 03/18/22 23:15 Tear Drop Cells Not Reportable 03/18/22 23:15 Ovalocytes Not Reportable 03/18/22 23:15 Helmet Cells Not Reportable 03/18/22 23:15 [place] Bodies Not Reportable 03/18/22 23:15 [place] Rings Not Reportable 03/18/22 23:15 Gold Cells Not Reportable 03/18/22 23:15 Bite Cells Not Reportable 03/18/22 23:15 Crenated Cell Not Reportable 03/18/22 23:15 Elliptocytes Not Reportable 03/18/22 23:15 Acanthocytes (Spur) Not Reportable 03/18/22 23:15 Rouleaux Not Reportable 03/18/22 23:15 Hemoglobin C Crystals Not Reportable 03/18/22 23:15 Schistocytes Not Reportable 03/18/22 23:15 Malaria parasites Not Reportable 03/18/22 23:15 Juancarlos Bodies Not Reportable 03/18/22 23:15 Hem Pathologist Commnt No 03/18/22 23:15 ABG pH 7.316 pH Units (7.350-7.450) L 03/11/22 10:35 ABG pCO2 54.7 mm Hg 03/11/22 10:35 ABG pO2 81.0 mm Hg (80.0-90.0) 03/11/22 10:35 ABG HCO3 27.3 mmol/L (20.0-26.0) H 03/11/22 10:35 ABG O2 Saturation 95.0 % (95.0-99.0) 03/11/22 10:35 ABG O2 Content 18.1 (0.0-44) 03/11/22 10:35 ABG Base Excess 0.2 mmol/L (-2.0-3.0) 03/11/22 10:35 ABG Hemoglobin 13.7 gm/dl (12.0-16.0) 03/11/22 10:35 ABG Carboxyhemoglobin 0.7 % (0.0-5.0) 03/11/22 10:35 ABG Methemoglobin 0.4 % (0.0-1.5) 03/11/22 10:35 Oxyhemoglobin 94.0 % (95.0-99.0) L 03/11/22 10:35 FiO2 90 % 03/11/22 10:35 Sodium 136 mmol/L (137-145) L 03/20/22 05:14 Potassium 5.0 mmol/L (3.6-5.0) 03/20/22 05:14 Chloride 97.6 mmol/L (98-107) L 03/20/22 05:14 Carbon Dioxide 25 mmol/L (22-30) 03/20/22 05:14 Anion Gap 18 mmol/L 03/20/22 05:14 BUN 133 mg/dL (7-17) H 03/20/22 05:14 Creatinine 2.6 mg/dL (0.6-1.2) H 03/20/22 05:14 Estimated GFR 22 ml/min 03/20/22 05:14 BUN/Creatinine Ratio 51 % 03/20/22 05:14 Glucose 239 mg/dL (65-100) H 03/20/22 05:14 Calcium 8.4 mg/dL (8.4-10.2) 03/20/22 05:14 Total Bilirubin 0.60 mg/dL (0.1-1.2) 03/04/22 02:51 AST 12 units/L (5-40) 03/04/22 02:51 ALT 6 units/L (7-56) L 03/04/22 02:51 Alkaline Phosphatase 91 units/L (35-129) 03/04/22 02:51 Troponin T < 0.010 ng/mL (0.00-0.029) 03/03/22 13:34 NT-Pro-B Natriuret Pep 55471 pg/mL (0-900) H 03/03/22 13:34 Total Protein 8.4 g/dL (6.3-8.2) H 03/04/22 02:51 Albumin 3.4 g/dL (3.9-5) L 03/04/22 02:51 Albumin/Globulin Ratio 0.7 % 03/04/22 02:51 Urine Color Yellow (Yellow) 03/04/22 17:35 Urine Turbidity Slightly-cloudy (Clear) 03/04/22 17:35 Urine pH 6.0 (5.0-7.0) 03/04/22 17:35 Ur Specific [place] 1.008 (1.003-1.030) 03/04/22 17:35 Urine Protein <15 mg/dl mg/dL (Negative) 03/04/22 17:35 Urine Glucose (UA) Neg mg/dL (Negative) 03/04/22 17:35 Urine Ketones Neg mg/dL (Negative) 03/04/22 17:35 Urine Blood Mod (Negative) 03/04/22 17:35 Urine Nitrite Neg (Negative) 03/04/22 17:35 Urine Bilirubin Neg (Negative) 03/04/22 17:35 Urine Urobilinogen < 2.0 mg/dL (<2.0) 03/04/22 17:35 Ur Leukocyte Esterase Lg (Negative) 03/04/22 17:35 Urine WBC (Auto) 11.0 /HPF (0.0-6.0) H 03/04/22 17:35 Urine RBC (Auto) 2.0 /HPF (0.0-6.0) 03/04/22 17:35 U Epithel Cells (Auto) 1.0 /HPF (0-13.0) 03/04/22 17:35 Urine Bacteria (Auto) 1+ /HPF (Negative) 03/04/22 17:35 Urine Mucus Few /HPF 03/04/22 17:35 Urine Yeast (Budding) Few /HPF 03/04/22 17:35 Urine Creatinine 41.2 mg/dL (0.1-20.0) H 03/04/22 17:35 Urine Sodium 126 mmol/L 03/04/22 17:35 Urine Total Protein 16 mg/dL (5-11.8) H 03/04/22 17:35 Coronavirus (PCR) Negative (Negative) 03/04/22 09:57 Gale/IV: Voiding Method External Female Catheter Active Medications - Current Medications Current Medications: Generic Name Dose Route Start Last Admin Trade Name Freq PRN Reason Stop Dose Admin Acetaminophen 650 mg 03/03/22 20:28 03/15/22 09:14 Acetaminophen 325 Mg Tab PO 650 mg Q4H PRN Administration Pain MILD(1-3)/Fever >100.5/HOFFMAN Cetirizine HCl 10 mg 03/12/22 15:00 03/20/22 09:33 Cetirizine 10 Mg Tab PO 10 mg QDAY VERN Administration Dextrose 50 ml 03/20/22 09:46 Dextrose 50% In Water (25gm) 50 Ml Syringe IV Q30MIN PRN Hypoglycemia Protocol Fluticasone Propionate 200 mcg 03/13/22 20:00 03/20/22 09:32 Fluticasone Propionate Nasal [place] 16 Gm NS 200 mcg QDAY VERN Administration Guaifenesin 600 mg 03/12/22 15:00 03/20/22 09:32 Guaifenesin Er 600 Mg Tab PO 600 mg BID [facility] Administration Heparin Sodium (Porcine) 7,500 unit 03/16/22 14:00 03/20/22 06:00 Heparin 5,000 Unit/1 Ml Vial SUB-Q 7,500 unit Q8HR [facility] Administration Insulin Human Isoph/Insulin Regular 10 unit 03/20/22 09:46 Insulin Nph/Regular 70/30 Inj SUB-Q BIDDIAB VERN Insulin Human Regular 0 units 03/20/22 11:30 Insulin Regular, Human 100 Units/1 Ml SUB-Q ACHS [facility] Protocol Methylprednisolone Sodium Succinate 60 mg 03/15/22 10:00 03/20/22 09:33 Methylprednisolone Sod Succinate 125 Mg/2 Ml Inj IV 60 mg Q12HR VERN Administration Metoclopramide HCl 5 mg 03/11/22 12:00 Metoclopramide 10 Mg/2 Ml Inj IV Q6H PRN Nausea And Vomiting Morphine Sulfate 2 mg 03/03/22 20:28 Morphine 2 Mg/1 Ml Inj IV Q4H PRN Pain, Moderate (4-6) Ondansetron HCl 4 mg 03/03/22 20:28 Ondansetron 4 Mg/2 Ml Inj IV Q8H PRN Nausea And Vomiting Oxycodone/Acetaminophen 1 tab 03/03/22 20:28 03/09/22 12:06 Oxycodone /Acetaminophen 5-325mg Tab PO 1 tab Q6H PRN Administration Pain, Moderate (4-6) Pantoprazole Sodium 40 mg 03/12/22 15:00 03/20/22 07:04 Pantoprazole 40 Mg Tab PO 40 mg QDAC [facility] Administration Polyethylene Glycol 17 gm 03/16/22 10:00 03/20/22 09:34 Polyethylene Glycol 3350 17 Gm Powder PO Not Given QDAY [facility] Senna/Docusate Sodium 2 tab 03/06/22 11:00 03/19/22 22:24 Sennosides/Docusate Sodium 8.6/50 Mg Tab PO Not Given Q12H VERN Sildenafil Citrate 20 mg 03/11/22 14:00 03/20/22 09:33 Sildenafil 20 Mg Tab PO 20 mg TID [facility] Administration Sodium Chloride 10 ml 03/03/22 22:00 03/20/22 09:34 Sodium Chloride 0.9% 10 Ml Flush Syringe IV 10 ml BID VERN Administration Sodium Chloride 10 ml 03/03/22 20:28 Sodium Chloride 0.9% 10 Ml Flush Syringe IV PRN PRN LINE FLUSH Torsemide 40 mg 03/17/22 10:00 03/20/22 09:33 Torsemide 10 Mg Tab PO 40 mg DAILY VERN Administration Nutrition/Malnutrition Assess - Dietary Evaluation Nutrition/Malnutrition Findings: Nutrition Notes Start: 03/11/22 14:05 Freq: Status: Active Protocol: Document 03/11/22 14:05 RAOUL (Rec: 03/11/22 14:21 RAOUL [id number]) Nutrition Notes Need for Assessment generated from: LOS Initial or Follow up Assessment Current Diagnosis Acute Kidney Injury,CKD(stage I-IV),Respiratory Failure, Malnutrition Other Pertinent Diagnosis HFpEF, Cor Pulmonale, UTI, Cystitis. Current Diet Cardiac -Renal- Diet (from D 03/11). Labs/Tests 03/11: BUN 108, Crea 2.5, Glu 141. Pertinent Medications 03/11: Nutritionally unremarkable. 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 Weight Status Morbidly Obese Subjective/Other Information RD consult for LOS assessment. Pt's PO intake of meals has been Good (>75%) but fairly tolerated, according to ADL notes. I will prescribe renal modification to current diet to support Pt's RIN/CKD condition during LOS. Pt is on High-Flow Nasal Cannula, O2 saturation @ 96%, according to Physical Assessment History notes. Pt presents an > as signs of concern for skin risk at this time, according to Physical Assessment History notes. Percent of energy/protein needs met: Prescribed Cardiac -Renal- Diet provides for energy/ protein needs (2,230 Kcal/85 g ) during LOS. Burn Absent Trauma Absent GI Symptoms None Food Allergy Yes Skin Integrity/Comment Unspecified dryness and flakiness. Current % PO Good (75-100%) Minimum of two criteria No Fluid Accumulation N/A Reduced Jawbone Puller Strength N/A (non-severe) Protein-Calorie Malnutrition N\A #1 Nutrition Diagnosis Altered nutrition-related laboratory values Etiology RIN/CKD III. As Evidenced by Signs and Symptoms 03/11: BUN 108, Crea 2.5. Is patient on ventilator? No Is Patient Ambulatory and/or Out of Bed Yes REE-(Nolan-St. Jeor-ambulatory/OOB) [ 1809.969 [id number]] Kcal/Kg value to use for calculation 10 Approximate Energy Requirements Using 1347 kcal/Kg Calculation Used for Recommendations Kcal/kg Additional Notes Protein: 0.6-0.8 g/Kg AdjBW; 56-75 g/day. Fluids: 1 ml/Kcal, or as per MD. Nutrition Intervention Change Diet Order: Modify to Cardiac -Renal- Diet . Goal #1 Adjust the dietary intervention to better serve Pt's needs and clinical conditions during LOS. Additional Comments Continue monitoring food tolerance, %PO intake of meals , and BM.
[2022-03-20] MEDS: SENNOSIDES/DOCUSATE SODIUM 8.6/50 MG TAB PO SCH ×2 (10:26→23:28)
--- NOTE | 2022-03-20 10:31 | Progress Note ---
Assessment and Plan - Patient Problems (1) Acute kidney injury superimposed on chronic kidney disease Current Visit: Yes Status: Acute Plan to address problem: Overall renal function remained stable at present time. She remains in late stage IIIb/early stage IV at present time. Continue to avoid nephrotoxins and maintain mean arterial pressures above 65 mmHg. We will continue to monitor closely at this time. (2) Acute exacerbation of congestive heart failure Current Visit: Yes Status: Acute Qualifiers: Heart failure type: combined systolic and diastolic Qualified Code(s): I50.43 - Acute on chronic combined systolic (congestive) and diastolic (congestive) heart failure Plan to address problem: Transition to oral torsemide regimen with adequate urine output noted. Respiratory status is also starting to show improvement as her oxygen requirements have started to decrease. Cardiology evaluation and recommendations reviewed. Counseled on appropriate fluid and sodium restriction. (3) Acute respiratory failure with hypoxia Current Visit: Yes Status: Acute Plan to address problem: Pulmonology recommendations reviewed. Oxygen requirements are starting to decrease. She remains on IV steroids which likely is also contributing to her elevated BUN levels. She does not have any symptoms concerning for uremia at present time therefore there is no need for renal replacement therapy. (4) Hypertensive chronic kidney disease with stage 1 through stage 4 chronic kidney disease, or unspecified chronic kidney disease Current Visit: Yes Status: Chronic Plan to address problem: Continue to monitor patient's blood pressures on current regimen. (5) Urinary tract infection due to ESBL Klebsiella Current Visit: Yes Status: Acute Plan to address problem: Patient has completed course of antibiotics. Asymptomatic at present time. Subjective Date of service: 03/20/22 Principal diagnosis: Hypoxic respiratory failure Interval history: Patient without any acute complaints this morning and states that overall her breathing has been improving. Renal function reviewed and overall stable in comparison to over the entire admission. She has decreased her oxygen requirements at this time. Objective - Vital Signs Vital signs: Vital Signs - 12hr 03/19/22 03/19/22 03/20/22 23:19 23:42 04:53 Temperature 98.0 F 97.9 F Pulse Rate 92 H 87 67 Respiratory 21 23 21 Rate Blood Pressure 129/69 141/67 O2 Sat by Pulse 90 97 94 Oximetry 03/20/22 08:17 Temperature 97.5 F L Pulse Rate 68 Respiratory 18 Rate Blood Pressure 117/64 O2 Sat by Pulse 96 Oximetry - General Appearance General appearance: well-developed, well-nourished, obese EENT: ATNC Neck: no JVD, no thyromegaly Respiratory: Present: Clear to Ascultation Cardiology: regular Gastrointestinal: normal Integumentary: no rash, warm and dry Neurologic: no focal deficit Musculoskeletal: deferred Psychiatric: cooperative - Lab 03/18/22 23:15 03/20/22 05:14 Most recent lab results ABG pH 7.316 pH Units (7.350-7.450) L 03/11/22 10:35 ABG pCO2 54.7 mm Hg 03/11/22 10:35 ABG pO2 81.0 mm Hg (80.0-90.0) 03/11/22 10:35 ABG HCO3 27.3 mmol/L (20.0-26.0) H 03/11/22 10:35 ABG O2 Saturation 95.0 % (95.0-99.0) 03/11/22 10:35 Calcium 8.4 mg/dL (8.4-10.2) 03/20/22 05:14 Urine Creatinine 41.2 mg/dL (0.1-20.0) H 03/04/22 17:35 Urine Sodium 126 mmol/L 03/04/22 17:35 Urine Total Protein 16 mg/dL (5-11.8) H 03/04/22 17:35 - Imaging Chest x-ray: pending - Allied health notes Allied health notes reviewed: nursing Medications & Allergies - Medications Allergies/Adverse Reactions: Allergies iodine Allergy (Verified 03/03/22 12:49) Anaphylaxis Penicillins Allergy (Verified 03/03/22 12:49) Anaphylaxis shellfish derived Allergy (Verified 03/03/22 12:49) Anaphylaxis Home Medications: Home Medications Medication Instructions Recorded Confirmed Last Taken Type Acetaminophen [Non-Aspirin Extra 500 mg PO Q8HR PRN 03/04/22 03/04/22 03/01/22 History Strength] Aspirin EC 325 mg PO 4XW 03/04/22 03/04/22 03/02/22 History Hydrocodone-Acetamin 2.5-325 5 - 325 mg PO Q6HR PRN 03/04/22 03/04/22 03/02/22 History Mucus Relief ER 600 mg PO BID 03/04/22 03/05/22 03/02/22 History Omeprazole 40 mg PO DAILY 03/04/22 03/05/22 03/02/22 History Phenazopyridine 200 mg PO TID 03/04/22 03/04/22 03/03/22 History Senna Plus Tablet 8.6 - 50 mg PO BID MDD CONSTIPATION 03/04/22 03/05/22 03/02/22 History Diclofenac Sodium ER 75 mg PO Q8HR 03/05/22 03/05/22 03/02/22 History Nifedipine ER 60 mg PO DAILY 03/05/22 03/05/22 03/02/22 History Vitamin D3 25 mg PO DAILY 03/05/22 03/05/22 03/02/22 History Active Medications: Generic Name Dose Route Start Last Admin Trade Name Freq PRN Reason Stop Dose Admin Acetaminophen 650 mg 03/03/22 20:28 03/15/22 09:14 Acetaminophen 325 Mg Tab PO 650 mg Q4H PRN Administration Pain MILD(1-3)/Fever >100.5/[place]OFFMAN Cetirizine HCl 10 mg 03/12/22 15:00 03/20/22 09:33 Cetirizine 10 Mg Tab PO 10 mg QDAY VERN Administration Dextrose 50 ml 03/20/22 09:46 Dextrose 50% In Water (25gm) 50 Ml Syringe IV Q30MIN PRN Hypoglycemia Protocol Fluticasone Propionate 200 mcg 03/13/22 20:00 03/20/22 09:32 Fluticasone Propionate Nasal [place] 16 Gm NS 200 mcg QDAY VERN Administration Guaifenesin 600 mg 03/12/22 15:00 03/20/22 09:32 Guaifenesin Er 600 Mg Tab PO 600 mg BID [facility] Administration Heparin Sodium (Porcine) 7,500 unit 03/16/22 14:00 03/20/22 06:00 Heparin 5,000 Unit/1 Ml Vial SUB-Q 7,500 unit Q8HR [facility] Administration Insulin Human Isoph/Insulin Regular 10 unit 03/20/22 11:00 Insulin Nph/Regular 70/30 Inj SUB-Q BIDDIAB VERN Insulin Human Regular 0 units 03/20/22 11:30 Insulin Regular, Human 100 Units/1 Ml SUB-Q ACHS [facility] Protocol Methylprednisolone Sodium Succinate 60 mg 03/15/22 10:00 03/20/22 09:33 Methylprednisolone Sod Succinate 125 Mg/2 Ml Inj IV 60 mg Q12HR [facility]ERN Administration Metoclopramide HCl 5 mg 03/11/22 12:00 Metoclopramide 10 Mg/2 Ml Inj IV Q6H PRN Nausea And Vomiting Morphine Sulfate 2 mg 03/03/22 20:28 Morphine 2 Mg/1 Ml Inj IV Q4H PRN Pain, Moderate (4-6) Ondansetron HCl 4 mg 03/03/22 20:28 Ondansetron 4 Mg/2 Ml Inj IV Q8H PRN Nausea And Vomiting Oxycodone/Acetaminophen 1 tab 03/03/22 20:28 03/09/22 12:06 Oxycodone /Acetaminophen 5-325mg Tab PO 1 tab Q6H PRN Administration Pain, Moderate (4-6) Pantoprazole Sodium 40 mg 03/12/22 15:00 03/20/22 07:04 Pantoprazole 40 Mg Tab PO 40 mg QDAC [facility]ERN Administration Polyethylene Glycol 17 gm 03/16/22 10:00 03/20/22 09:34 Polyethylene Glycol 3350 17 Gm Powder PO Not Given QDAY VERN Senna/Docusate Sodium 2 tab 03/06/22 11:00 03/20/22 10:26 Sennosides/Docusate Sodium 8.6/50 Mg Tab PO Not Given Q12H VERN Sildenafil Citrate 20 mg 03/11/22 14:00 03/20/22 09:33 Sildenafil 20 Mg Tab PO 20 mg TID VERN Administration Sodium Chloride 10 ml 03/03/22 22:00 03/20/22 09:34 Sodium Chloride 0.9% 10 Ml Flush Syringe IV 10 ml BID VERN Administration Sodium Chloride 10 ml 03/03/22 20:28 Sodium Chloride 0.9% 10 Ml Flush Syringe IV PRN PRN LINE FLUSH Torsemide 40 mg 03/17/22 10:00 03/20/22 09:33 Torsemide 10 Mg Tab PO 40 mg DAILY VERN Administration
[2022-03-20] MEDS ORDERED: INSULIN NPH/REGULAR 70/30 INJ SUB-Q SCH ×2 (11:00→12:52)
--- NOTE | 2022-03-20 11:09 | Progress Note ---
Assessment and Plan 1. Acute on chronic right-sided heart failure. 2. Chronic obstructive pulmonary disease 3. Severe pulmonary hypertension 4. Chronic cor pulmonale 5. Morbid obesity 6. Chronic kidney disease stage stage III unspecified Plan. Conservative management continue present medication. Patient is may be a candidate for combination therapy for management of her pulmonary hypertension. Consider RHC. Subjective Date of service: 03/20/22 Principal diagnosis: Hypoxic respiratory failure Interval history: No cardiac complains. Objective Vital Signs Temp Pulse Pulse Resp BP Pulse Ox 03/20/22 08:17 97.5 F L 68 18 117/64 96 03/20/22 04:53 97.9 F 67 21 141/67 94 03/19/22 23:42 87 23 97 03/19/22 23:19 98.0 F 92 H 21 129/69 90 03/19/22 22:00 95 H 92 H 18 92 03/19/22 20:00 95 03/19/22 19:34 98.0 F 92 H 18 138/72 91 03/19/22 16:20 98.1 F 92 H 18 121/54 94 03/19/22 14:30 91 03/19/22 11:52 97.9 F 74 18 130/44 91 - Physical Examination General: No Apparent Distress, Other (obesity) HEENT: Positive: PERRL Neck: Positive: neck supple Cardiac: Positive: Regular Rate, S1/S2, S3, PMI, Dilated, Laterally Displaced Lungs: Positive: clear to auscultation, No Wheeze, Rales, Rhonchi Neuro: Positive: Grossly Intact Abdomen: Positive: Soft Skin: Positive: Clear Extremities: Present: edema (Minimal) - Labs and Meds Comprehensive Metabolic Panel 03/20/22 Range/Units 05:14 Sodium 136 L (137-145) mmol/L Potassium 5.0 (3.6-5.0) mmol/L Chloride 97.6 L (98-107) mmol/L Carbon Dioxide 25 (22-30) mmol/L BUN 133 H (7-17) mg/dL Creatinine 2.6 H (0.6-1.2) mg/dL Glucose 239 H (65-100) mg/dL Calcium 8.4 (8.4-10.2) mg/dL - Imaging and Cardiology EKG: report reviewed (Sinus tachycardia no acute ST-T wave changes) - Allied health notes Allied health notes reviewed: nursing
[2022-03-20] MEDS: INSULIN REGULAR, HUMAN 100 UNITS/1 ML SUB-Q SCH ×4 (11:49→21:19)
--- NOTE | 2022-03-20 12:19 | Progress Note ---
Assessment and Plan 71 y/o female with severe pulm htn and Eliseo with acute on chronic respiratory failure. 03/20/22: H/H was stable. continue sildenafil. Continue to wean FiO2 as tolerated. Still needs RHC. Overall prognosis is guarded to poor. Will consi hunter decreasing steroids tomorrow if she can maintain on 7 liters. 03/18/22: consider checking CBC with diff. Continue Sildenafil for now. Needs RHC to assess if true Type 1 Pulm HTN. Overall prognosis is guarded to poor. 03/17/22: Given increase in O2 requirement, will hold on dropping steroids today. Otherwise, same recs as the day before. 03/16/22: Will drop steroids to daily starting tomorrow. Continue TID Sildenafil. Reviewed Social work note. There is no debate about therapy. The only safe thing that can be administered at this time is sildenafil three times daily which she is tolerating. No further therapy would be started without RHC number. I reviewed a CM note from 2 days prior that states [facility] would be willing to accept what is documented as 30 liters of flow. Patient is now on 20. Would continue daily net negative state as long as blood pressure and renal function will allow. Continue to wean FiO2 as tolerated for sats >88% 03/15/22: Decreased steroids to BID. Continue Sildenafil at current dosing. Continue daily net negative state if possible and wean FiO2 for sats >88%. Still feel patient would benefit from right and left heart cath if able to be weaned off HFNC and able to lie flat. 03/09/22: Without an exact cause for her Pulm HTN, would be difficult to say if there is anything else that could be done for her severe pulm HTN. If this is truly worsening of lung disease, given the rate that it has happened, even treatment of COPD would not improve quality of life significantly. If she has developed type 1 pulmonary HTN, she would need at least 2-3 drug therapy and she may not tolerate this as well given her age and current clinical status. A right and left heart cath would be necessary before determination of this degree of therapy. Do not disagree with hospice referral again. Has been on steroid therapy less than 24 hours. Would continue to see if any benefit. Prognosis still remains guarded. 03/08/22: Last time this patient was seen in our office was 2015. At that time she only had mild COPD. Unable to obtain repeat divina at this time. She did not smoke since being on hospice care and was recently discharged secondary to lack of further decline (although one could argue for it now). Will attempt steroid therapy to see if this improves oxygen requirement, however as stated earlier, patient may benefit from right heart cath with drug study if no improvement on steroids. V/Q done but was not ordered looking for acute PE but more for concern for CTEPH. Guarded prognosis. 03/07/22: No new recs. Will find old office notes today to see the last time we saw this patient. 03/06/22: CXR read by rads suggest unchanged edema. Agree with continued diuresis and fluid restriction. Wean Vent for sats >88%. Continue NIV therapy at night 1. Cardiology following. This degree of Pulm HTN is not seen with just ELISEO alone, especially in someone who is compliant with therapy. Defer to cards but would consider right heart cath if not already done previously 2. Continue bipap therapy at night as well as PRN during the day. Patient does not know her settings for her machine at home and my office did not manipulate these numbers last. Will titrate sat of >88% and comfort 3. Agree with continued diuresis, CXR shows continued vascular congestion, maybe slightly better, maybe 4. Wean FiO2 for sats >88% Subjective Date of service: 03/20/22 Principal diagnosis: Hypoxic respiratory failure Interval history: Down to 7 liters with good sats. Objective Vital Signs - 12hr 03/20/22 03/20/22 03/20/22 04:53 08:17 08:35 Temperature 97.9 F 97.5 F L Pulse Rate 67 68 Pulse Rate [ From Monitor] Respiratory 21 18 Rate Blood Pressure 141/67 117/64 O2 Sat by Pulse 94 96 94 Oximetry 03/20/22 10:00 Temperature Pulse Rate 68 Pulse Rate [ 68 From Monitor] Respiratory 21 Rate Blood Pressure O2 Sat by Pulse 92 Oximetry Constitutional: no acute distress, alert, other (obese) Eyes: non-icteric ENT: oropharynx moist Neck: supple, other (obese) Effort: mildly labored Ascultation: Bilateral: diminished breath sounds, rales Percussion: Bilateral: not dull Cardiovascular: regular rate and rhythm (no mrg) Gastrointestinal: normoactive bowel sounds, soft, non-tender, non-distended Integumentary: normal Extremities: no cyanosis, no edema, pink and warm Neurologic: normal mental status, non-focal exam, pupils equal and round Psychiatric: mood appropriate, affect normal CBC and BMP: 03/18/22 23:15 03/20/22 05:14 ABG, PT/INR, D-dimer: ABG ABG pH 7.316 pH Units (7.350-7.450) L 03/11/22 10:35 ABG pCO2 54.7 mm Hg 03/11/22 10:35 ABG pO2 81.0 mm Hg (80.0-90.0) 03/11/22 10:35 ABG O2 Saturation 95.0 % (95.0-99.0) 03/11/22 10:35 Abnormal lab findings: Abnormal Labs 03/03/22 03/03/22 03/03/22 13:34 13:34 13:34 WBC RBC Hgb Hct RDW 16.1 H Lymph % (Auto) 9.7 L Lymph # (Auto) 0.8 L Seg Neutrophils % 84.6 H Seg Neuts % (Manual) Lymphocytes % (Manual) Seg Neutrophils # Man Lymphocytes # (Manual) ABG pH ABG HCO3 Oxyhemoglobin Sodium Potassium Chloride BUN 47 H Creatinine 1.7 H Glucose 101 H POC Glucose ALT NT-Pro-B Natriuret Pep 77761 H Total Protein 9.1 H Albumin 3.5 L Urine WBC (Auto) Urine Creatinine Urine Total Protein 03/04/22 03/04/22 03/04/22 02:51 03:05 17:35 WBC RBC Hgb Hct RDW 16.0 H Lymph % (Auto) 8.9 L Lymph # (Auto) 0.8 L Seg Neutrophils % 84.1 H Seg Neuts % (Manual) Lymphocytes % (Manual) Seg Neutrophils # Man Lymphocytes # (Manual) ABG pH ABG HCO3 Oxyhemoglobin Sodium Potassium Chloride BUN 46 H Creatinine 1.8 H Glucose 119 H POC Glucose ALT 6 L NT-Pro-B Natriuret Pep Total Protein 8.4 H Albumin 3.4 L Urine WBC (Auto) 11.0 H Urine Creatinine Urine Total Protein 03/04/22 03/05/22 03/05/22 17:35 12:08 15:18 WBC RBC Hgb Hct RDW Lymph % (Auto) Lymph # (Auto) Seg Neutrophils % Seg Neuts % (Manual) Lymphocytes % (Manual) Seg Neutrophils # Man Lymphocytes # (Manual) ABG pH ABG HCO3 Oxyhemoglobin Sodium Potassium 6.4 H* D Chloride BUN 55 H 55 H Creatinine 2.0 H 2.0 H Glucose 120 H 116 H POC Glucose ALT NT-Pro-B Natriuret Pep Total Protein Albumin Urine WBC (Auto) Urine Creatinine 41.2 H Urine Total Protein 16 H 03/06/22 03/08/22 03/08/22 05:25 09:44 09:44 WBC RBC Hgb Hct RDW 15.9 H Lymph % (Auto) 12.2 L Lymph # (Auto) 0.9 L Seg Neutrophils % 79.5 H Seg Neuts % (Manual) Lymphocytes % (Manual) Seg Neutrophils # Man Lymphocytes # (Manual) ABG pH ABG HCO3 Oxyhemoglobin Sodium Potassium Chloride BUN 58 H 69 H Creatinine 2.1 H 2.3 H Glucose 103 H POC Glucose ALT NT-Pro-B Natriuret Pep Total Protein Albumin Urine WBC (Auto) Urine Creatinine Urine Total Protein 03/08/22 03/09/22 03/10/22 14:36 05:43 07:16 WBC RBC Hgb Hct RDW Lymph % (Auto) Lymph # (Auto) Seg Neutrophils % Seg Neuts % (Manual) Lymphocytes % (Manual) Seg Neutrophils # Man Lymphocytes # (Manual) ABG pH ABG HCO3 Oxyhemoglobin Sodium Potassium 5.3 H D Chloride BUN 70 H 82 H 95 H Creatinine 2.4 H 2.5 H 2.3 H Glucose 125 H 149 H 141 H POC Glucose ALT NT-Pro-B Natriuret Pep Total Protein Albumin Urine WBC (Auto) Urine Creatinine Urine Total Protein 03/11/22 03/11/22 03/12/22 06:44 10:35 06:27 WBC RBC Hgb Hct RDW Lymph % (Auto) Lymph # (Auto) Seg Neutrophils % Seg Neuts % (Manual) Lymphocytes % (Manual) Seg Neutrophils # Man Lymphocytes # (Manual) ABG pH 7.316 L ABG HCO3 27.3 H Oxyhemoglobin 94.0 L Sodium Potassium Chloride BUN 108 H 113 H Creatinine 2.5 H 2.4 H Glucose 141 H 216 H POC Glucose ALT NT-Pro-B Natriuret Pep Total Protein Albumin Urine WBC (Auto) Urine Creatinine Urine Total Protein 03/13/22 03/14/2222 10:19 09:26 07:37 WBC RBC Hgb Hct RDW Lymph % (Auto) Lymph # (Auto) Seg Neutrophils % Seg Neuts % (Manual) Lymphocytes % (Manual) Seg Neutrophils # Man Lymphocytes # (Manual) ABG pH ABG HCO3 Oxyhemoglobin Sodium 136 L Potassium Chloride 97.3 L BUN 121 H 131 H 134 H Creatinine 2.4 H 2.6 H 2.5 H Glucose 279 H 146 H 156 H POC Glucose ALT NT-Pro-B Natriuret Pep Total Protein Albumin Urine WBC (Auto) Urine Creatinine Urine Total Protein 03/16/22 03/17/22 03/18/22 05:19 04:00 23:15 WBC 18.4 H RBC 5.22 H Hgb 14.9 H Hct 47.7 H RDW 15.9 H Lymph % (Auto) Lymph # (Auto) Seg Neutrophils % Seg Neuts % (Manual) 94.0 H Lymphocytes % (Manual) 2.0 L Seg Neutrophils # Man 17.3 H Lymphocytes # (Manual) 0.4 L ABG pH ABG HCO3 Oxyhemoglobin Sodium Potassium Chloride BUN 135 H 129 H Creatinine 2.5 H 2.2 H Glucose 147 H 182 H POC Glucose ALT NT-Pro-B Natriuret Pep Total Protein Albumin Urine WBC (Auto) Urine Creatinine Urine Total Protein 03/20/22 03/20/22 05:14 11:33 WBC RBC Hgb Hct RDW Lymph % (Auto) Lymph # (Auto) Seg Neutrophils % Seg Neuts % (Manual) Lymphocytes % (Manual) Seg Neutrophils # Man Lymphocytes # (Manual) ABG pH ABG HCO3 Oxyhemoglobin Sodium 136 L Potassium Chloride 97.6 L BUN 133 H Creatinine 2.6 H Glucose 239 H POC Glucose 400 H ALT NT-Pro-B Natriuret Pep Total Protein Albumin Urine WBC (Auto) Urine Creatinine Urine Total Protein Allied health notes reviewed: nursing
[2022-03-20] MEDS ORDERED: INSULIN REGULAR, HUMAN 100 UNITS/1 ML SUB-Q ONE ×2 (12:51→15:00)
--- NOTE | 2022-03-20 13:37 | Event Note ---
Date: 03/20/22 Cr increased from yesterday. Patient will need to be back at baseline renal status for further angiographic evaluation as per prior note.
[2022-03-20] MEDS: INSULIN NPH/REGULAR 70/30 INJ SUB-Q SCH (21:11)
[2022-03-21 06:27] LABS: Hematocrit 45.9 % (30.3-42.9); Hemoglobin 14.5 gm/dl (10.1-14.3); Mean Corpuscular HGB Conc 32 % (30-34); Mean Corpuscular Volume 90 fl (79-97); Platelet Count 166 K/mm3 (140-440); Red Cell Distribution Width 15.7 % (13.2-15.2)
[2022-03-21] MEDS: PANTOPRAZOLE 40 MG TAB PO SCH (06:37)
[2022-03-21] MEDS: HEPARIN 5,000 UNIT/1 ML VIAL SUB-Q SCH ×3 (06:37→21:06)
[2022-03-21 06:50] LABS: Calcium 8.9 mg/dL (8.4-10.2)
[2022-03-21] MEDS: INSULIN REGULAR, HUMAN 100 UNITS/1 ML SUB-Q SCH ×4 (07:43→21:07)
[2022-03-21] MEDS: INSULIN NPH/REGULAR 70/30 INJ SUB-Q SCH ×2 (09:22→21:33)
[2022-03-21] MEDS: FLUTICASONE PROPIONATE NASAL SPRAY 16 GM NS SCH (09:22)
[2022-03-21] MEDS: methylPREDNISolone Sod Succinate 125 MG/2 ML INJ IV SCH ×2 (09:23→21:06)
[2022-03-21] MEDS: SILDENAFIL 20 MG TAB PO SCH ×3 (09:23→20:55)
[2022-03-21] MEDS: TORSEMIDE 10 MG TAB PO SCH (09:23)
[2022-03-21] MEDS: guaiFENesin ER 600 MG TAB PO SCH ×2 (09:24→21:07)
[2022-03-21] MEDS: POLYETHYLENE GLYCOL 3350 17 GM POWDER PO SCH (09:24)
[2022-03-21] MEDS: CETIRIZINE 10 MG TAB PO SCH (09:24)
[2022-03-21 10:01] LABS: Basophils % (Manual) 0 % (0.0-1.8); Total Cells Counted 100
[2022-03-21 10:02] LABS: Platelet Estimate Consistent w Auto; Target Cells Rare
--- NOTE | 2022-03-21 10:15 | Progress Note ---
Assessment and Plan 71 y/o female with severe pulm htn and Eliseo with acute on chronic respiratory failure. 03/21/22: Continue to wean for sats >88%. If not mistaken, baseline flow at home was 5. Continue sildenafil. Will drop steroids tomorrow. 03/20/22: H/H was stable. continue sildenafil. Continue to wean FiO2 as tolerated. Still needs RHC. Overall prognosis is guarded to poor. Will consider decreasing steroids tomorrow if she can maintain on 7 liters. 03/18/22: consider checking CBC with diff. Continue Sildenafil for now. Needs RHC to assess if true Type 1 Pulm HTN. Overall prognosis is guarded to poor. 03/17/22: Given increase in O2 requirement, will hold on dropping steroids today. Otherwise, same recs as the day before. 03/16/22: Will drop steroids to daily starting tomorrow. Continue TID Sildenafil. Reviewed Social work note. There is no debate about therapy. The only safe thing that can be administered at this time is sildenafil three times daily which she is tolerating. No further therapy would be started without RHC number. I reviewed a CM note from 2 days prior that states [facility] would be willing to accept what is documented as 30 liters of flow. Patient is now on 20. Would continue daily net negative state as long as blood pressure and renal function will allow. Continue to wean FiO2 as tolerated for sats >88% 03/15/22: Decreased steroids to BID. Continue Sildenafil at current dosing. Continue daily net negative state if possible and wean FiO2 for sats >88%. Still feel patient would benefit from right and left heart cath if able to be weaned off HFNC and able to lie flat. 03/09/22: Without an exact cause for her Pulm HTN, would be difficult to say if there is anything else that could be done for her severe pulm HTN. If this is truly worsening of lung disease, given the rate that it has happened, even treatment of COPD would not improve quality of life significantly. If she has developed type 1 pulmonary HTN, she would need at least 2-3 drug therapy and she may not tolerate this as well given her age and current clinical status. A right and left heart cath would be necessary before determination of this degree of therapy. Do not disagree with hospice referral again. Has been on steroid therapy less than 24 hours. Would continue to see if any benefit. Prognosis still remains guarded. 03/08/22: Last time this patient was seen in our office was 2015. At that time she only had mild COPD. Unable to obtain repeat divina at this time. She did not smoke since being on hospice care and was recently discharged secondary to lack of further decline (although one could argue for it now). Will attempt steroid therapy to see if this improves oxygen requirement, however as stated earlier, patient may benefit from right heart cath with drug study if no improvement on steroids. V/Q done but was not ordered looking for acute PE but more for concern for CTEPH. Guarded prognosis. 03/07/22: No new recs. Will find old office notes today to see the last time we saw this patient. 03/06/22: CXR read by rads suggest unchanged edema. Agree with continued diuresis and fluid restriction. Wean Vent for sats >88%. Continue NIV therapy at night 1. Cardiology following. This degree of Pulm HTN is not seen with just ELISEO alone, especially in someone who is compliant with therapy. Defer to cards but would consider right heart cath if not already done previously 2. Continue bipap therapy at night as well as PRN during the day. Patient does not know her settings for her machine at home and my office did not manipulate these numbers last. Will titrate sat of >88% and comfort 3. Agree with continued diuresis, CXR shows continued vascular congestion, maybe slightly better, maybe 4. Wean FiO2 for sats >88% Subjective Date of service: 03/21/22 Principal diagnosis: Hypoxic respiratory failure Interval history: No acute events. Still on 7 with good sats. Objective Vital Signs - 12hr 03/20/22 03/21/22 03/21/22 22:32 00:05 04:08 Temperature 97.8 F 97.2 F L Pulse Rate 71 69 65 Pulse Rate [ From Monitor] Respiratory 20 19 23 Rate Blood Pressure 123/68 129/60 Blood Pressure [Left] O2 Sat by Pulse 99 98 98 Oximetry 03/21/22 03/21/22 03/21/22 04:17 09:25 09:27 Temperature 98 F Pulse Rate 66 Pulse Rate [ 66 From Monitor] Respiratory 27 H 16 18 Rate Blood Pressure Blood Pressure 106/70 [Left] O2 Sat by Pulse 99 97 97 Oximetry Constitutional: no acute distress, alert, other (obese) Eyes: non-icteric ENT: oropharynx moist Neck: supple, other (obese) Effort: mildly labored Ascultation: Bilateral: diminished breath sounds, rales Percussion: Bilateral: not dull Cardiovascular: regular rate and rhythm (no mrg) Gastrointestinal: normoactive bowel sounds, soft, non-tender, non-distended Integumentary: normal Extremities: no cyanosis, no edema, pink and warm Neurologic: normal mental status, non-focal exam, pupils equal and round Psychiatric: mood appropriate, affect normal CBC and BMP: 03/21/22 05:47 03/21/22 05:47 ABG, PT/INR, D-dimer: ABG ABG pH 7.316 pH Units (7.350-7.450) L 03/11/22 10:35 ABG pCO2 54.7 mm Hg 03/11/22 10:35 ABG pO2 81.0 mm Hg (80.0-90.0) 03/11/22 10:35 ABG O2 Saturation 95.0 % (95.0-99.0) 03/11/22 10:35 Abnormal lab findings: Abnormal Labs 03/03/22 03/03/22 03/03/22 13:34 13:34 13:34 WBC RBC Hgb Hct RDW 16.1 H Lymph % (Auto) 9.7 L Lymph # (Auto) 0.8 L Seg Neutrophils % 84.6 H Seg Neuts % (Manual) Lymphocytes % (Manual) Seg Neutrophils # Man Lymphocytes # (Manual) ABG pH ABG HCO3 Oxyhemoglobin Sodium Potassium Chloride BUN 47 H Creatinine 1.7 H Glucose 101 H POC Glucose ALT NT-Pro-B Natriuret Pep 07639 H Total Protein 9.1 H Albumin 3.5 L Urine WBC (Auto) Urine Creatinine Urine Total Protein 03/04/22 03/04/22 03/04/22 02:51 03:05 17:35 WBC RBC Hgb Hct RDW 16.0 H Lymph % (Auto) 8.9 L Lymph # (Auto) 0.8 L Seg Neutrophils % 84.1 H Seg Neuts % (Manual) Lymphocytes % (Manual) Seg Neutrophils # Man Lymphocytes # (Manual) ABG pH ABG HCO3 Oxyhemoglobin Sodium Potassium Chloride BUN 46 H Creatinine 1.8 H Glucose 119 H POC Glucose ALT 6 L NT-Pro-B Natriuret Pep Total Protein 8.4 H Albumin 3.4 L Urine WBC (Auto) 11.0 H Urine Creatinine Urine Total Protein 03/04/22 03/05/22 03/05/22 17:35 12:08 15:18 WBC RBC Hgb Hct RDW Lymph % (Auto) Lymph # (Auto) Seg Neutrophils % Seg Neuts % (Manual) Lymphocytes % (Manual) Seg Neutrophils # Man Lymphocytes # (Manual) ABG pH ABG HCO3 Oxyhemoglobin Sodium Potassium 6.4 H* D Chloride BUN 55 H 55 H Creatinine 2.0 H 2.0 H Glucose 120 H 116 H POC Glucose ALT NT-Pro-B Natriuret Pep Total Protein Albumin Urine WBC (Auto) Urine Creatinine 41.2 H Urine Total Protein 16 H 03/06/22 03/08/22 03/08/22 05:25 09:44 09:44 WBC RBC Hgb Hct RDW 15.9 H Lymph % (Auto) 12.2 L Lymph # (Auto) 0.9 L Seg Neutrophils % 79.5 H Seg Neuts % (Manual) Lymphocytes % (Manual) Seg Neutrophils # Man Lymphocytes # (Manual) ABG pH ABG HCO3 Oxyhemoglobin Sodium Potassium Chloride BUN 58 H 69 H Creatinine 2.1 H 2.3 H Glucose 103 H POC Glucose ALT NT-Pro-B Natriuret Pep Total Protein Albumin Urine WBC (Auto) Urine Creatinine Urine Total Protein 03/08/22 03/09/22 03/10/22 14:36 05:43 07:16 WBC RBC Hgb Hct RDW Lymph % (Auto) Lymph # (Auto) Seg Neutrophils % Seg Neuts % (Manual) Lymphocytes % (Manual) Seg Neutrophils # Man Lymphocytes # (Manual) ABG pH ABG HCO3 Oxyhemoglobin Sodium Potassium 5.3 H D Chloride BUN 70 H 82 H 95 H Creatinine 2.4 H 2.5 H 2.3 H Glucose 125 H 149 H 141 H POC Glucose ALT NT-Pro-B Natriuret Pep Total Protein Albumin Urine WBC (Auto) Urine Creatinine Urine Total Protein 03/11/22 03/11/22 03/12/22 06:44 10:35 06:27 WBC RBC Hgb Hct RDW Lymph % (Auto) Lymph # (Auto) Seg Neutrophils % Seg Neuts % (Manual) Lymphocytes % (Manual) Seg Neutrophils # Man Lymphocytes # (Manual) ABG pH 7.316 L ABG HCO3 27.3 H Oxyhemoglobin 94.0 L Sodium Potassium Chloride BUN 108 H 113 H Creatinine 2.5 H 2.4 H Glucose 141 H 216 H POC Glucose ALT NT-Pro-B Natriuret Pep Total Protein Albumin Urine WBC (Auto) Urine Creatinine Urine Total Protein 03/13/22 03/14/22 03/15/22 10:19 09:26 07:37 WBC RBC Hgb Hct RDW Lymph % (Auto) Lymph # (Auto) Seg Neutrophils % Seg Neuts % (Manual) Lymphocytes % (Manual) Seg Neutrophils # Man Lymphocytes # (Manual) ABG pH ABG HCO3 Oxyhemoglobin Sodium 136 L Potassium Chloride 97.3 L BUN 121 H 131 H 134 H Creatinine 2.4 H 2.6 H 2.5 H Glucose 279 H 146 H 156 H POC Glucose ALT NT-Pro-B Natriuret Pep Total Protein Albumin Urine WBC (Auto) Urine Creatinine Urine Total Protein 03/16/22 03/17/22 03/18/22 05:19 04:00 23:15 WBC 18.4 H RBC 5.22 H Hgb 14.9 H Hct 47.7 H RDW 15.9 H Lymph % (Auto) Lymph # (Auto) Seg Neutrophils % Seg Neuts % (Manual) 94.0 H Lymphocytes % (Manual) 2.0 L Seg Neutrophils # Man 17.3 H Lymphocytes # (Manual) 0.4 L ABG pH ABG HCO3 Oxyhemoglobin Sodium Potassium Chloride BUN 135 H 129 H Creatinine 2.5 H 2.2 H Glucose 147 H 182 H POC Glucose ALT NT-Pro-B Natriuret Pep Total Protein Albumin Urine WBC (Auto) Urine Creatinine Urine Total Protein 03/20/22 03/20/22 03/20/22 05:14 11:33 15:11 WBC RBC Hgb Hct RDW Lymph % (Auto) Lymph # (Auto) Seg Neutrophils % Seg Neuts % (Manual) Lymphocytes % (Manual) Seg Neutrophils # Man Lymphocytes # (Manual) ABG pH ABG HCO3 Oxyhemoglobin Sodium 136 L Potassium Chloride 97.6 L BUN 133 H Creatinine 2.6 H Glucose 239 H POC Glucose 400 H 287 H ALT NT-Pro-B Natriuret Pep Total Protein Albumin Urine WBC (Auto) Urine Creatinine Urine Total Protein 03/20/22 03/20/22 03/21/22 15:54 20:29 05:47 WBC 20.9 H RBC 5.10 H Hgb 14.5 H Hct 45.9 H RDW 15.7 H Lymph % (Auto) Lymph # (Auto) Seg Neutrophils % Seg Neuts % (Manual) 94.0 H Lymphocytes % (Manual) 3.0 L Seg Neutrophils # Man 19.6 H Lymphocytes # (Manual) 0.6 L ABG pH ABG HCO3 Oxyhemoglobin Sodium Potassium Chloride BUN Creatinine Glucose POC Glucose 242 H 207 H ALT NT-Pro-B Natriuret Pep Total Protein Albumin Urine WBC (Auto) Urine Creatinine Urine Total Protein 03/21/22 03/21/22 05:47 07:57 WBC RBC Hgb Hct RDW Lymph % (Auto) Lymph # (Auto) Seg Neutrophils % Seg Neuts % (Manual) Lymphocytes % (Manual) Seg Neutrophils # Man Lymphocytes # (Manual) ABG pH ABG HCO3 Oxyhemoglobin Sodium Potassium Chloride BUN 140 H Creatinine 2.6 H Glucose 136 H POC Glucose 125 H ALT NT-Pro-B Natriuret Pep Total Protein Albumin Urine WBC (Auto) Urine Creatinine Urine Total Protein Allied health notes reviewed: nursing
[2022-03-21] MEDS: SENNOSIDES/DOCUSATE SODIUM 8.6/50 MG TAB PO SCH ×2 (10:25→22:08)
--- NOTE | 2022-03-21 12:41 | Progress Note ---
Assessment and Plan Patient's creatinine is stabilizing. I discussed with patient that she will need revascularization with predominantly CO2 however, some contrast may be necessary. We wait for creatinine to remain at its baseline for a few days as well as the patient becoming clinically more stable from her other comorbidities prior to considering revascularization. Subjective Date of service: 03/21/22 Principal diagnosis: Hypoxic respiratory failure Interval history: Patient with a history of CHF, cor pulmonale, severe COPD who has been on hospice and as result not followed up with her physicians. Patient was discharged from hospice. Noted to have significant vascular disease however, chronic renal failure as well. Objective - Constitutional Vitals: Vital Signs - 12hr 03/21/22 03/21/22 03/21/22 04:08 04:17 09:25 Temperature 97.2 F L 98 F Pulse Rate 65 66 Pulse Rate [ From Monitor] Respiratory 23 27 H 16 Rate Blood Pressure 129/60 Blood Pressure 106/70 [Left] O2 Sat by Pulse 98 99 97 Oximetry 03/21/22 03/21/22 09:27 11:31 Temperature 97.9 F Pulse Rate 75 Pulse Rate [ 66 From Monitor] Respiratory 18 16 Rate Blood Pressure Blood Pressure 155/98 [Left] O2 Sat by Pulse 97 97 Oximetry General appearance: Present: no acute distress, obese - EENT Eyes: EOM intact ENT: hearing intact - Neck Neck: supple, normal ROM - Respiratory Respiratory effort: normal - Breasts Breasts: deferred Extremity abnormal: edema - Gastrointestinal General gastrointestinal: Present: deferred - Genitourinary Female genitourinary: deferred - Psychiatric Psychiatric: appropriate mood/affect, cooperative - Labs CBC & Chem 7: 03/21/22 05:47 03/21/22 05:47 Labs: Abnormal lab results 03/20/22 03/20/22 03/20/22 Range/Units 15:11 15:54 20:29 WBC (4.5-11.0) K/mm3 RBC (3.65-5.03) M/mm3 Hgb (10.1-14.3) gm/dl Hct (30.3-42.9) % RDW (13.2-15.2) % Seg Neuts % (Manual) (40.0-70.0) % Lymphocytes % (Manual) (13.4-35.0) % Seg Neutrophils # Man (1.8-7.7) K/mm3 Lymphocytes # (Manual) (1.2-5.4) K/mm3 BUN (7-17) mg/dL Creatinine (0.6-1.2) mg/dL Glucose (65-100) mg/dL POC Glucose 287 H 242 H 207 H (70-105) mg/dL 03/21/22 03/21/22 03/21/22 Range/Units 05:47 05:47 07:57 WBC 20.9 H (4.5-11.0) K/mm3 RBC 5.10 H (3.65-5.03) M/mm3 Hgb 14.5 H (10.1-14.3) gm/dl Hct 45.9 H (30.3-42.9) % RDW 15.7 H (13.2-15.2) % Seg Neuts % (Manual) 94.0 H (40.0-70.0) % Lymphocytes % (Manual) 3.0 L (13.4-35.0) % Seg Neutrophils # Man 19.6 H (1.8-7.7) K/mm3 Lymphocytes # (Manual) 0.6 L (1.2-5.4) K/mm3 BUN 140 H (7-17) mg/dL Creatinine 2.6 H (0.6-1.2) mg/dL Glucose 136 H (65-100) mg/dL POC Glucose 125 H (70-105) mg/dL 03/21/22 Range/Units 12:16 WBC (4.5-11.0) K/mm3 RBC (3.65-5.03) M/mm3 Hgb (10.1-14.3) gm/dl Hct (30.3-42.9) % RDW (13.2-15.2) % Seg Neuts % (Manual) (40.0-70.0) % Lymphocytes % (Manual) (13.4-35.0) % Seg Neutrophils # Man (1.8-7.7) K/mm3 Lymphocytes # (Manual) (1.2-5.4) K/mm3 BUN (7-17) mg/dL Creatinine (0.6-1.2) mg/dL Glucose (65-100) mg/dL POC Glucose 169 H (70-105) mg/dL Medications & Allergies - Medications Allergies/Adverse Reactions: Allergies iodine Allergy (Verified 03/03/22 12:49) Anaphylaxis Penicillins Allergy (Verified 03/03/22 12:49) Anaphylaxis shellfish derived Allergy (Verified 03/03/22 12:49) Anaphylaxis Home Medications: Home Medications Medication Instructions Recorded Confirmed Last Taken Type Acetaminophen [Non-Aspirin Extra 500 mg PO Q8HR PRN 03/04/22 03/04/22 03/01/22 History Strength] Aspirin EC 325 mg PO 4XW 03/04/22 03/04/22 03/02/22 History Hydrocodone-Acetamin 2.5-325 5 - 325 mg PO Q6HR PRN 03/04/22 03/04/22 03/02/22 History Mucus Relief ER 600 mg PO BID 03/04/22 03/05/22 03/02/22 History Omeprazole 40 mg PO DAILY 03/04/22 03/05/22 03/02/22 History Phenazopyridine 200 mg PO TID 03/04/22 03/04/22 03/03/22 History Senna Plus Tablet 8.6 - 50 mg PO BID MDD CONSTIPATION 03/04/22 03/05/22 03/02/22 History Diclofenac Sodium ER 75 mg PO Q8HR 03/05/22 03/05/22 03/02/22 History Nifedipine ER 60 mg PO DAILY 03/05/22 03/05/22 03/02/22 History Vitamin D3 25 mg PO DAILY 03/05/22 03/05/22 03/02/22 History Active Medications: Generic Name Dose Route Start Last Admin Trade Name Freq PRN Reason Stop Dose Admin Acetaminophen 650 mg 03/03/22 20:28 03/15/22 09:14 Acetaminophen 325 Mg Tab PO 650 mg Q4H PRN Administration Pain MILD(1-3)/Fever >100.5/HOFFMAN Cetirizine HCl 10 mg 03/12/22 15:00 03/21/22 09:24 Cetirizine 10 Mg Tab PO 10 mg QDAY VERN Administration Dextrose 50 ml 03/20/22 09:46 Dextrose 50% In Water (25gm) 50 Ml Syringe IV Q30MIN PRN Hypoglycemia Protocol Fluticasone Propionate 200 mcg 03/13/22 20:00 03/21/22 09:22 Fluticasone Propionate Nasal [place] 16 Gm NS 200 mcg QDAY VERN Administration Guaifenesin 600 mg 03/12/22 15:00 03/21/22 09:24 Guaifenesin Er 600 Mg Tab PO 600 mg BID [facility] Administration Heparin Sodium (Porcine) 7,500 unit 03/16/22 14:00 03/21/22 06:37 Heparin 5,000 Unit/1 Ml Vial SUB-Q 7,500 unit Q8HR VERN Administration Insulin Human Isoph/Insulin Regular 15 unit 03/20/22 22:00 03/21/22 09:22 Insulin Nph/Regular 70/30 Inj SUB-Q 15 unit BID VERN Administration Insulin Human Regular 0 units 03/20/22 11:30 03/21/22 07:43 Insulin Regular, Human 100 Units/1 Ml SUB-Q Not Given ACHS [facility] Protocol Methylprednisolone Sodium Succinate 60 mg 03/15/22 10:00 03/21/22 09:23 Methylprednisolone Sod Succinate 125 Mg/2 Ml Inj IV 60 mg Q12HR VERN Administration Metoclopramide HCl 5 mg 03/11/22 12:00 Metoclopramide 10 Mg/2 Ml Inj IV Q6H PRN Nausea And Vomiting Morphine Sulfate 2 mg 03/03/22 20:28 Morphine 2 Mg/1 Ml Inj IV Q4H PRN Pain, Moderate (4-6) Ondansetron HCl 4 mg 03/03/22 20:28 Ondansetron 4 Mg/2 Ml Inj IV Q8H PRN Nausea And Vomiting Oxycodone/Acetaminophen 1 tab 03/03/22 20:28 03/09/22 12:06 Oxycodone /Acetaminophen 5-325mg Tab PO 1 tab Q6H PRN Administration Pain, Moderate (4-6) Pantoprazole Sodium 40 mg 03/12/22 15:00 03/21/22 06:37 Pantoprazole 40 Mg Tab PO 40 mg QDAC VERN Administration Polyethylene Glycol 17 gm 03/16/22 10:00 03/21/22 09:24 Polyethylene Glycol 3350 17 Gm Powder PO Not Given QDAY [facility] Senna/Docusate Sodium 2 tab 03/06/22 11:00 03/21/22 10:25 Sennosides/Docusate Sodium 8.6/50 Mg Tab PO Not Given Q12H [facility] Sildenafil Citrate 20 mg 03/11/22 14:00 03/21/22 09:23 Sildenafil 20 Mg Tab PO 20 mg TID VERN Administration Sodium Chloride 10 ml 03/03/22 22:00 03/21/22 09:24 Sodium Chloride 0.9% 10 Ml Flush Syringe IV 10 ml BID VERN Administration Sodium Chloride 10 ml 03/03/22 20:28 Sodium Chloride 0.9% 10 Ml Flush Syringe IV PRN PRN LINE FLUSH Torsemide 40 mg 03/17/22 10:00 03/21/22 09:23 Torsemide 10 Mg Tab PO 40 mg DAILY VERN Administration HEART Score - HEART Score Age: > 65 Risk factors: 1-2 risk factors Troponin: Troponin T < 0.010 ng/mL (0.00-0.029) 03/03/22 13:34 Troponin: < normal limit - Critical Actions Critical Actions: 4-6 pts:12-16.6% risk of adverse cardiac event. Should be admitted
--- NOTE | 2022-03-21 13:34 | Progress Note ---
Assessment and Plan Assessment and plan: #Severe pulmonary arterial hypertension #Acute on chronic hypoxic respiratory failure-improving - baseline oxygen requirements: 5 L nasal cannula - supplemental oxygen: HFNC 7L; will attempt to wean as tolerated Pulmonology following; assistance appreciated - Continue protocol: continue pulse oximetry, wean oxygen as tolerated, ordered incentive spirometry and educated patient on how to use it and its importance - Unremarkable LE dopplers. V/Q scan low probability for PE - CTA of the chest: intersitial edema and central pulmonary arterial enlargement suggest of PAH - continue IV steroids; may benefit from R + L heart cath for further evaluation - Patient is on sildenafil #Left heel ulcer Concern for acute versus chronic osteomyelitis General surgery consulted; appreciate recs. Infectious disease consulted for possible presumed treatment of chronic osteomyelitis. #Acute on chronic diastolic heart failureresolved #Cor pulmonale - Continue CHF exacerbation protocol: Telemetry, Strict I/O, monitor urine output every shift, daily weights, afterload reduction, low-sodium diet, and fluid restriction of approximately 1.5 mL/day - continue PO diuretics - ProBNP on admission: 11,875 - Cardiology following; appreciate recs - TTE (03/04/2022) revealing EF 50-55% with normal-sized LV, lower limits of normal LV systolic function, borderline concentric LVH, severely dilated RV, severely reduced RV systolic function, mildly dilated LA, severely dilated RA, RVSP >95 mmHg, and severe pulmonary hypertension. -Patient is on IV Lasix 40 mg daily #Leukocytosis - WBC 18.4 - likely secondary to demarginalization in setting of steroid administration. No intervention at this time. #ESBL UTI/cystitis without hematuriaresolved Urinalysis revealing large leukocyte esterase, WBC 11, 1+ bacteria, few budding yeast. - Macrobid discontinued due to worsening renal function, ertapenem x3 doses started per ID recs Infectious disease following, assistance appreciated Continue precautions #Atypical chest painruled out Negative troponin x2 Likely secondary to volume overload in the setting of acute heart failure. #RIN on CKD stage IIIresolved SCr 2.4 today Renally dose meds and avoid nephrotoxic drugs Nephrology following; appreciate recs #Mild protein caloric malnutrition Albumin 3.4 Continue dietary supplementation #Morbid obesity #Weight loss counseling #Exercise counseling - BMI 53.1 - Counseled patient on the importance of weight loss, incorporating exercise, and dietary changes (lean meats, fresh fruits and vegetables, and water intake). Patient expresses understanding. - Time: +15 min #Discharge planning - Patient is pending approval for LTAC - Case management has been made aware. #Advanced care planning -Disease education conducted, care plan discussed, diagnoses discussed, pr ognosis discussed, and patient acknowledges understanding with care plan -Time: +30 min Disposition Plan: Continue medical management Total Time Spent with Patient (Minutes): 45 minutes History Interval history: No acute events overnight. Hospitalist Physical - Constitutional Vitals: Temp Pulse Resp BP Pulse Ox 97.9 F 75 16 155/98 97 03/21/22 11:31 03/21/22 11:31 03/21/22 11:31 03/21/22 11:31 03/21/22 11:31 General appearance: Present: no acute distress, obese - EENT Eyes: Present: PERRL, EOM intact ENT: hearing intact, clear oral mucosa, dentition normal - Neck Neck: Present: supple, normal ROM - Respiratory Respiratory effort: normal Respiratory: bilateral: diminished (On high flow nasal cannula 7 L) - Cardiovascular Rhythm: regular Heart Sounds: Present: S1 & S2 - Extremities Extremities: no ischemia, pulses intact, pulses symmetrical, No edema, normal temperature, normal color Extremity abnormal: ulceration (Ulceration of the left heel) Peripheral Pulses: within normal limits - Abdominal General gastrointestinal: soft, non-tender, non-distended, normal bowel sounds - Integumentary Integumentary: Present: clear, warm, dry - Psychiatric Psychiatric: appropriate mood/affect, cooperative - Neurologic Neurologic: CNII-XII intact, moves all extremities - Allied Health Allied health notes reviewed: nursing HEART Score - HEART Score Age: > 65 Risk factors: 1-2 risk factors Troponin: Troponin T < 0.010 ng/mL (0.00-0.029) 03/03/22 13:34 Troponin: < normal limit - Critical Actions Critical Actions: 4-6 pts:12-16.6% risk of adverse cardiac event. Should be admitted Results - Labs CBC & Chem 7: 03/21/22 05:47 03/21/22 05:47 Labs: Laboratory Last Values WBC 20.9 K/mm3 (4.5-11.0) H 03/21/22 05:47 RBC 5.10 M/mm3 (3.65-5.03) H 03/21/22 05:47 Hgb 14.5 gm/dl (10.1-14.3) H 03/21/22 05:47 Hct 45.9 % (30.3-42.9) H 03/21/22 05:47 MCV 90 fl (79-97) 03/21/22 05:47 MCH 28 pg (28-32) 03/21/22 05:47 MCHC 32 % (30-34) 03/21/22 05:47 RDW 15.7 % (13.2-15.2) H 03/21/22 05:47 Plt Count 166 K/mm3 (140-440) 03/21/22 05:47 Lymph % (Auto) 12.2 % (13.4-35.0) L 03/08/22 09:44 [place] % (Auto) 4.6 % (0.0-7.3) 03/08/22 09:44 Eos % (Auto) 3.0 % (0.0-4.3) 03/08/22 09:44 Baso % (Auto) 0.7 % (0.0-1.8) 03/08/22 09:44 Lymph # (Auto) 0.9 K/mm3 (1.2-5.4) L 03/08/22 09:44 [place] # (Auto) 0.4 K/mm3 (0.0-0.8) 03/08/22 09:44 Eos # (Auto) 0.2 K/mm3 (0.0-0.4) 03/08/22 09:44 Baso # (Auto) 0.1 K/mm3 (0.0-0.1) 03/08/22 09:44 Add Manual Diff Complete 03/21/22 05:47 Total Counted 100 03/21/22 05:47 Seg Neutrophils % Numerical Control Machine Machinist 03/21/22 05:47 Seg Neuts % (Manual) 94.0 % (40.0-70.0) H 03/21/22 05:47 Band Neutrophils % 0 % 03/21/22 05:47 Lymphocytes % (Manual) 3.0 % (13.4-35.0) L 03/21/22 05:47 Reactive Lymphs % (Man) 0 % 03/21/22 05:47 Monocytes % (Manual) 2.0 % (0.0-7.3) 03/21/22 05:47 Eosinophils % (Manual) 1.0 % (0.0-4.3) 03/21/22 05:47 Basophils % (Manual) 0 % (0.0-1.8) 03/21/22 05:47 Metamyelocytes % 0 % 03/21/22 05:47 Myelocytes % 0 % 03/21/22 05:47 Promyelocytes % 0 % 03/21/22 05:47 Blast Cells % 0 % 03/21/22 05:47 Nucleated RBC % Not Reportable 03/21/22 05:47 Seg Neutrophils # 6.0 K/mm3 (1.8-7.7) 03/08/22 09:44 Seg Neutrophils # Man 19.6 K/mm3 (1.8-7.7) H 03/21/22 05:47 Band Neutrophils # 0.0 K/mm3 03/21/22 05:47 Lymphocytes # (Manual) 0.6 K/mm3 (1.2-5.4) L 03/21/22 05:47 Abs React Lymphs (Man) 0.0 K/mm3 03/21/22 05:47 Monocytes # (Manual) 0.4 K/mm3 (0.0-0.8) 03/21/22 05:47 Eosinophils # (Manual) 0.2 K/mm3 (0.0-0.4) 03/21/22 05:47 Basophils # (Manual) 0.0 K/mm3 (0.0-0.1) 03/21/22 05:47 Metamyelocytes # 0.0 K/mm3 03/21/22 05:47 Myelocytes # 0.0 K/mm3 03/21/22 05:47 Promyelocytes # 0.0 K/mm3 03/21/22 05:47 Blast Cells # 0.0 K/mm3 03/21/22 05:47 WBC Morphology Not Reportable 03/21/22 05:47 Hypersegmented Neuts Not Reportable 03/21/22 05:47 Hyposegmented Neuts Not Reportable 03/21/22 05:47 Hypogranular Neuts Not Reportable 03/21/22 05:47 Smudge Cells Not Reportable 03/21/22 05:47 Toxic Granulation Not Reportable 03/21/22 05:47 Toxic Vacuolation Not Reportable 03/21/22 05:47 Dohle Bodies Not Reportable 03/21/22 05:47 Pelger-Huet Anomaly Not Reportable 03/21/22 05:47 Neptali Rods Not Reportable 03/21/22 05:47 Platelet Estimate Consistent w auto 03/21/22 05:47 Clumped Platelets Not Reportable 03/21/22 05:47 Plt Clumps, EDTA Not Reportable 03/21/22 05:47 Large Platelets Not Reportable 03/21/22 05:47 Giant Platelets Not Reportable 03/21/22 05:47 Platelet Satelliting Not Reportable 03/21/22 05:47 Plt Morphology Comment Not Reportable 03/21/22 05:47 RBC Morphology Not Reportable 03/21/22 05:47 Dimorphic RBCs Not Reportable 03/21/22 05:47 Polychromasia Not Reportable 03/21/22 05:47 Hypochromasia Not Reportable 03/21/22 05:47 Poikilocytosis Not Reportable 03/21/22 05:47 Anisocytosis Not Reportable 03/21/22 05:47 Microcytosis Not Reportable 03/21/22 05:47 Macrocytosis Not Reportable 03/21/22 05:47 Spherocytes Not Reportable 03/21/22 05:47 Pappenheimer Bodies Not Reportable 03/21/22 05:47 Sickle Cells Not Reportable 03/21/22 05:47 Target Cells Rare 03/21/22 05:47 Tear Drop Cells Not Reportable 03/21/22 05:47 Ovalocytes Not Reportable 03/21/22 05:47 Helmet Cells Not Reportable 03/21/22 05:47 Baeza-Shiprock Bodies Not Reportable 03/21/22 05:47 [place] Rings Not Reportable 03/21/22 05:47 Debary Cells Not Reportable 03/21/22 05:47 Bite Cells Not Reportable 03/21/22 05:47 Crenated Cell Not Reportable 03/21/22 05:47 Elliptocytes Not Reportable 03/21/22 05:47 Acanthocytes (Spur) Not Reportable 03/21/22 05:47 Rouleaux Not Reportable 03/21/22 05:47 Hemoglobin C Crystals Not Reportable 03/21/22 05:47 Schistocytes Not Reportable 03/21/22 05:47 Malaria parasites Not Reportable 03/21/22 05:47 Juancarlos Bodies Not Reportable 03/21/22 05:47 Hem Pathologist Commnt No 03/21/22 05:47 ABG pH 7.316 pH Units (7.350-7.450) L 03/11/22 10:35 ABG pCO2 54.7 mm Hg 03/11/22 10:35 ABG pO2 81.0 mm Hg (80.0-90.0) 03/11/22 10:35 ABG HCO3 27.3 mmol/L (20.0-26.0) H 03/11/22 10:35 ABG O2 Saturation 95.0 % (95.0-99.0) 03/11/22 10:35 ABG O2 Content 18.1 (0.0-44) 03/11/22 10:35 ABG Base Excess 0.2 mmol/L (-2.0-3.0) 03/11/22 10:35 ABG Hemoglobin 13.7 gm/dl (12.0-16.0) 03/11/22 10:35 ABG Carboxyhemoglobin 0.7 % (0.0-5.0) 03/11/22 10:35 ABG Methemoglobin 0.4 % (0.0-1.5) 03/11/22 10:35 Oxyhemoglobin 94.0 % (95.0-99.0) L 03/11/22 10:35 FiO2 90 % 03/11/22 10:35 Sodium 140 mmol/L (137-145) 03/21/22 05:47 Potassium 4.5 mmol/L (3.6-5.0) 03/21/22 05:47 Chloride 99.3 mmol/L (98-107) 03/21/22 05:47 Carbon Dioxide 28 mmol/L (22-30) 03/21/22 05:47 Anion Gap 17 mmol/L 03/21/22 05:47 BUN 140 mg/dL (7-17) H 03/21/22 05:47 Creatinine 2.6 mg/dL (0.6-1.2) H 03/21/22 05:47 Estimated GFR 22 ml/min 03/21/22 05:47 BUN/Creatinine Ratio 54 % 03/21/22 05:47 Glucose 136 mg/dL (65-100) H 03/21/22 05:47 POC Glucose 169 mg/dL (70-105) H 03/21/22 12:16 Calcium 8.9 mg/dL (8.4-10.2) 03/21/22 05:47 Total Bilirubin 0.60 mg/dL (0.1-1.2) 03/04/22 02:51 AST 12 units/L (5-40) 03/04/22 02:51 ALT 6 units/L (7-56) L 03/04/22 02:51 Alkaline Phosphatase 91 units/L (35-129) 03/04/22 02:51 Troponin T < 0.010 ng/mL (0.00-0.029) 03/03/22 13:34 NT-Pro-B Natriuret Pep 43812 pg/mL (0-900) H 03/03/22 13:34 Total Protein 8.4 g/dL (6.3-8.2) H 03/04/22 02:51 Albumin 3.4 g/dL (3.9-5) L 03/04/22 02:51 Albumin/Globulin Ratio 0.7 % 03/04/22 02:51 Urine Color Yellow (Yellow) 03/04/22 17:35 Urine Turbidity Slightly-cloudy (Clear) 03/04/22 17:35 Urine pH 6.0 (5.0-7.0) 03/04/22 17:35 Ur Specific [place] 1.008 (1.003-1.030) 03/04/22 17:35 Urine Protein <15 mg/dl mg/dL (Negative) 03/04/22 17:35 Urine Glucose (UA) Neg mg/dL (Negative) 03/04/22 17:35 Urine Ketones Neg mg/dL (Negative) 03/04/22 17:35 Urine Blood Mod (Negative) 03/04/22 17:35 Urine Nitrite Neg (Negative) 03/04/22 17:35 Urine Bilirubin Neg (Negative) 03/04/22 17:35 Urine Urobilinogen < 2.0 mg/dL (<2.0) 03/04/22 17:35 Ur Leukocyte Esterase Lg (Negative) 03/04/22 17:35 Urine WBC (Auto) 11.0 /HPF (0.0-6.0) H 03/04/22 17:35 Urine RBC (Auto) 2.0 /HPF (0.0-6.0) 03/04/22 17:35 U Epithel Cells (Auto) 1.0 /HPF (0-13.0) 03/04/22 17:35 Urine Bacteria (Auto) 1+ /HPF (Negative) 03/04/22 17:35 Urine Mucus Few /HPF 03/04/22 17:35 Urine Yeast (Budding) Few /HPF 03/04/22 17:35 Urine Creatinine 41.2 mg/dL (0.1-20.0) H 03/04/22 17:35 Urine Sodium 126 mmol/L 03/04/22 17:35 Urine Total Protein 16 mg/dL (5-11.8) H 03/04/22 17:35 Coronavirus (PCR) Negative (Negative) 03/04/22 09:57 Microbiology: Microbiology 03/18/22 Unknown Foot - Left Wound Culture - Preliminary Gram Negative Yohan Gram Negative Yohan#2 Gale/IV: Voiding Method External Female Catheter Active Medications - Current Medications Current Medications: Generic Name Dose Route Start Last Admin Trade Name Freq PRN Reason Stop Dose Admin Acetaminophen 650 mg 03/03/22 20:28 03/15/22 09:14 Acetaminophen 325 Mg Tab PO 650 mg Q4H PRN Administration Pain MILD(1-3)/Fever >100.5/HOFFMAN Cetirizine HCl 10 mg 03/12/22 15:00 03/21/22 09:24 Cetirizine 10 Mg Tab PO 10 mg QDAY VERN Administration Dextrose 50 ml 03/20/22 09:46 Dextrose 50% In Water (25gm) 50 Ml Syringe IV Q30MIN PRN Hypoglycemia Protocol Fluticasone Propionate 200 mcg 03/13/22 20:00 03/21/22 09:22 Fluticasone Propionate Nasal [place] 16 Gm NS 200 mcg QDAY VERN Administration Guaifenesin 600 mg 03/12/22 15:00 03/21/22 09:24 Guaifenesin Er 600 Mg Tab PO 600 mg BID VERN Administration Heparin Sodium (Porcine) 7,500 unit 03/16/22 14:00 03/21/22 06:37 Heparin 5,000 Unit/1 Ml Vial SUB-Q 7,500 unit Q8HR VERN Administration Insulin Human Isoph/Insulin Regular 15 unit 03/20/22 22:00 03/21/22 09:22 Insulin Nph/Regular 70/30 Inj SUB-Q 15 unit BID VERN Administration Insulin Human Regular 0 units 03/20/22 11:30 03/21/22 07:43 Insulin Regular, Human 100 Units/1 Ml SUB-Q Not Given ACHS COUNT INCLUDES THE [facility] Protocol Methylprednisolone Sodium Succinate 60 mg 03/15/22 10:00 03/21/22 09:23 Methylprednisolone Sod Succinate 125 Mg/2 Ml Inj IV 60 mg Q12HR VERN Administration Metoclopramide HCl 5 mg 03/11/22 12:00 Metoclopramide 10 Mg/2 Ml Inj IV Q6H PRN Nausea And Vomiting Morphine Sulfate 2 mg 03/03/22 20:28 Morphine 2 Mg/1 Ml Inj IV Q4H PRN Pain, Moderate (4-6) Ondansetron HCl 4 mg 03/03/22 20:28 Ondansetron 4 Mg/2 Ml Inj IV Q8H PRN Nausea And Vomiting Oxycodone/Acetaminophen 1 tab 03/03/22 20:28 03/09/22 12:06 Oxycodone /Acetaminophen 5-325mg Tab PO 1 tab Q6H PRN Administration Pain, Moderate (4-6) Pantoprazole Sodium 40 mg 03/12/22 15:00 03/21/22 06:37 Pantoprazole 40 Mg Tab PO 40 mg QDAC COUNT INCLUDES THE [facility] Administration Polyethylene Glycol 17 gm 03/16/22 10:00 03/21/22 09:24 Polyethylene Glycol 3350 17 Gm Powder PO Not Given QDAY COUNT INCLUDES THE [facility] Senna/Docusate Sodium 2 tab 03/06/22 11:00 03/21/22 10:25 Sennosides/Docusate Sodium 8.6/50 Mg Tab PO Not Given Q12H VERN Sildenafil Citrate 20 mg 03/11/22 14:00 03/21/22 09:23 Sildenafil 20 Mg Tab PO 20 mg TID VERN Administration Sodium Chloride 10 ml 03/03/22 22:00 03/21/22 09:24 Sodium Chloride 0.9% 10 Ml Flush Syringe IV 10 ml BID VERN Administration Sodium Chloride 10 ml 03/03/22 20:28 Sodium Chloride 0.9% 10 Ml Flush Syringe IV PRN PRN LINE FLUSH Torsemide 40 mg 03/17/22 10:00 03/21/22 09:23 Torsemide 10 Mg Tab PO 40 mg DAILY VERN Administration Nutrition/Malnutrition Assess - Dietary Evaluation Nutrition/Malnutrition Findings: Nutrition Notes Start: 03/11/22 14:05 Freq: Status: Active Protocol: Document 03/11/22 14:05 RAOUL (Rec: 03/11/22 14:21 RAOUL [email or web address]) Nutrition Notes Need for Assessment generated from: LOS Initial or Follow up Assessment Current Diagnosis Acute Kidney Injury,CKD(stage I-IV),Respiratory Failure, Malnutrition Other Pertinent Diagnosis HFpEF, Cor Pulmonale, UTI, Cystitis. Current Diet Cardiac -Renal- Diet (from D 03/11). Labs/Tests 03/11: BUN 108, Crea 2.5, Glu 141. Pertinent Medications 03/11: Nutritionally unremarkable. 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 Weight Status Morbidly Obese Subjective/Other Information RD consult for LOS assessment. Pt's PO intake of meals has been Good (>75%) but fairly tolerated, according to ADL notes. I will prescribe renal modification to current diet to support Pt's RIN/CKD condition during LOS. Pt is on High-Flow Nasal Cannula, O2 saturation @ 96%, according to Physical Assessment History notes. Pt presents an > as signs of concern for skin risk at this time, according to Physical Assessment History notes. Percent of energy/protein needs met: Prescribed Cardiac -Renal- Diet provides for energy/ protein needs (2,230 Kcal/85 g ) during LOS. Burn Absent Trauma Absent GI Symptoms None Food Allergy Yes Skin Integrity/Comment Unspecified dryness and flakiness. Current % PO Good (75-100%) Minimum of two criteria No Fluid Accumulation N/A Reduced Emergency Manager Strength N/A (non-severe) Protein-Calorie Malnutrition N\A #1 Nutrition Diagnosis Altered nutrition-related laboratory values Etiology RIN/CKD III. As Evidenced by Signs and Symptoms 03/11: BUN 108, Crea 2.5. Is patient on ventilator? No Is Patient Ambulatory and/or Out of Bed Yes REE-(Gre[place]-St. Jeor-ambulatory/OOB) [ 9736.969 NUTR.[id number]] Kcal/Kg value to use for calculation 10 Approximate Energy Requirements Using 1347 kcal/Kg Calculation Used for Recommendations Kcal/kg Additional Notes Protein: 0.6-0.8 g/Kg AdjBW; 56-75 g/day. Fluids: 1 ml/Kcal, or as per MD. Nutrition Intervention Change Diet Order: Modify to Cardiac -Renal- Diet . Goal #1 Adjust the dietary intervention to better serve Pt's needs and clinical conditions during LOS. Additional Comments Continue monitoring food tolerance, %PO intake of meals , and BM.
--- NOTE | 2022-03-21 15:02 | Progress Note ---
Assessment and Plan - Patient Problems (1) Interstitial edema Current Visit: Yes Status: Acute Plan to address problem: 71-year-old woman with morbid obesity, obstructive sleep apnea, hypertension, presents with shortness of breath and chest x-ray evidence of mild to moderate interstitial edema. Previous invasive cardiac work-up 10 years ago showed no significant coronary artery disease. Prior left ventricular systolic function assessment was well-preserved at 50%. Echocardiogram on this presentation demonstrates well-preserved left ventricular systolic function. Major finding on the echocardiogram is the presence of severe cor pulmonale with dilated right heart chambers, moderate to severe tricuspid regurgitation and severe pulmonary hypertension with pulmonary artery systolic pressures approaching systemic levels. Chronic lung disease appears to be primary etiology for dyspnea, respiratory insufficiency and hypoxemia. Subjective Date of service: 03/21/22 Principal diagnosis: Hypoxic respiratory failure Interval history: Patient is comfortable, no cardiac complaints, no new cardiac events reported. Patient is on nasal oxygen. On monitoring manager, there is a stable sinus rhythm. Objective Vital Signs Temp Pulse Pulse Resp BP BP Pulse Ox 03/21/22 11:31 97.9 F 75 16 155/98 97 03/21/22 09:27 66 18 97 03/21/22 09:25 98 F 66 16 106/70 97 03/21/22 04:17 27 H 99 03/21/22 04:08 97.2 F L 65 23 129/60 98 03/21/22 00:05 97.8 F 69 19 123/68 98 03/20/22 22:32 71 20 99 03/20/22 22:00 85 68 21 92 03/20/22 19:15 97.8 F 82 18 138/62 93 03/20/22 15:33 98.0 F 84 18 123/69 94 - Physical Examination General: No Apparent Distress, Other (obesity) HEENT: Positive: PERRL Neck: Positive: neck supple Cardiac: Positive: Reg Rate and Rhythm Lungs: Positive: Decreased Breath Sounds Neuro: Positive: Grossly Intact Abdomen: Positive: Soft Skin: Positive: Clear Extremities: Present: edema (Minimal) - Labs and Meds CBC 03/21/22 Range/Units 05:47 WBC 20.9 H (4.5-11.0) K/mm3 RBC 5.10 H (3.65-5.03) M/mm3 Hgb 14.5 H (10.1-14.3) gm/dl Hct 45.9 H (30.3-42.9) % Plt Count 166 (140-440) K/mm3 Comprehensive Metabolic Panel 03/21/22 Range/Units 05:47 Sodium 140 (137-145) mmol/L Potassium 4.5 (3.6-5.0) mmol/L Chloride 99.3 (98-107) mmol/L Carbon Dioxide 28 (22-30) mmol/L BUN 140 H (7-17) mg/dL Creatinine 2.6 H (0.6-1.2) mg/dL Glucose 136 H (65-100) mg/dL Calcium 8.9 (8.4-10.2) mg/dL - Imaging and Cardiology EKG: report reviewed (Sinus tachycardia no acute ST-T wave changes) - Allied health notes Allied health notes reviewed: nursing
[2022-03-22] MEDS: PANTOPRAZOLE 40 MG TAB PO SCH (06:31)
[2022-03-22] MEDS: HEPARIN 5,000 UNIT/1 ML VIAL SUB-Q SCH ×3 (06:31→22:13)
--- NOTE | 2022-03-22 08:01 | Progress Note ---
Assessment and Plan Assessment and plan: #Severe pulmonary arterial hypertension #Acute on chronic hypoxic respiratory failure-improving - baseline oxygen requirements: 5 L nasal cannula - supplemental oxygen: NC @ 7LPM, will wean as tolerated Pulmonology following; assistance appreciated - Continue protocol: continue pulse oximetry, wean oxygen as tolerated, ordered incentive spirometry and educated patient on how to use it and its importance - Unremarkable LE dopplers. V/Q scan low probability for PE - CTA of the chest: intersitial edema and central pulmonary arterial enlargement suggest of PAH - continue IV steroids; may benefit from R + L heart cath for further evaluation outpatient as patient may likely be discharged soon - continue sildenafil and steroids #Left heel ulcer Concern for chronic osteomyelitis General surgery and Vascular surgery consulted; appreciate recs - patient without signs and symptoms of acute infection therefore abx were not started at this time -Pulmonology advises against general anesthesia for possible surgical intervention, supportive care at this time #Acute on chronic diastolic heart failureresolved #Cor pulmonale - Continue CHF exacerbation protocol: Telemetry, Strict I/O, monitor urine output every shift, daily weights, afterload reduction, low-sodium diet, and fluid restriction of approximately 1.5 mL/day - continue PO diuretics - ProBNP on admission: 11,875 - Cardiology following; appreciate recs - TTE (03/04/2022) revealing EF 50-55% with normal-sized LV, lower limits of normal LV systolic function, borderline concentric LVH, severely dilated RV, severely reduced RV systolic function, mildly dilated LA, severely dilated RA, RVSP >95 mmHg, and severe pulmonary hypertension. -continue PO torsemide #Leukocytosis - WBC 20, patient afebrile, only has chronic L foot ulcer - likely secondary to demarginalization in setting of steroid administration. No intervention at this time. #ESBL UTI/cystitis without hematuriaresolved Urinalysis revealing large leukocyte esterase, WBC 11, 1+ bacteria, few budding yeast. - s/p Macrobid and ertapenem x3 doses started per ID recs Continue precautions #Atypical chest painruled out Negative troponin x2 Likely secondary to volume overload in the setting of acute heart failure. #RIN on CKD stage IIIstable SCr 2.6 Renally dose meds and avoid nephrotoxic drugs Nephrology following; appreciate recs #Mild protein caloric malnutrition Albumin 3.4 Continue dietary supplementation #Morbid obesity #Weight loss counseling #Exercise counseling - BMI 53.1 - Counseled patient on the importance of weight loss, incorporating exercise, and dietary changes (lean meats, fresh fruits and vegetables, and water intake). Patient expresses understanding. - Time: +15 min #Discharge planning - Patient is pending approval for LTAC, patient with improving O2 requirement, may be discharged home once she reaches home O2 level - Case management has been made aware. History Interval history: No acute events overnight. Patient stable on 7 L nasal cannula. She reports pain at left heel when moving it and some shortness of breath with exertion. She has no other complaints at this time. Hospitalist Physical - Physical exam Narrative exam: GENERAL: Obese woman. In no acute distress. HEENT: Nasal cannula 7 L/min. CHEST/LUNGS: Prolonged expiratory phase, otherwise CTAB. HEART/CARDIOVASCULAR: RRR. No murmur, rubs or gallops appreciated. ABDOMEN: +BS. NT/ND. NEURO: No focal motor deficit. Follows all commands. MUSCULOSKELETAL: No joint effusion EXTREMITIES: BLE chronic venous stasis changes. No clubbing or edema. Left lower extremity ulcer at heel without drainage. PSYCH: Cooperative. - Constitutional Vitals: Temp Pulse Resp BP Pulse Ox 97.3 F L 62 20 127/67 97 03/22/22 04:13 03/22/22 04:13 03/22/22 04:13 03/22/22 04:13 03/22/22 04:13 General appearance: Present: no acute distress, obese HEART Score - HEART Score Age: > 65 Risk factors: 1-2 risk factors Troponin: Troponin T < 0.010 ng/mL (0.00-0.029) 03/03/22 13:34 Troponin: < normal limit - Critical Actions Critical Actions: 4-6 pts:12-16.6% risk of adverse cardiac event. Should be admitted Results - Labs CBC & Chem 7: 03/21/22 05:47 03/21/22 05:47 Labs: Laboratory Last Values WBC 20.9 K/mm3 (4.5-11.0) H 03/21/22 05:47 RBC 5.10 M/mm3 (3.65-5.03) H 03/21/22 05:47 Hgb 14.5 gm/dl (10.1-14.3) H 03/21/22 05:47 Hct 45.9 % (30.3-42.9) H 03/21/22 05:47 MCV 90 fl (79-97) 03/21/22 05:47 MCH 28 pg (28-32) 03/21/22 05:47 MCHC 32 % (30-34) 03/21/22 05:47 RDW 15.7 % (13.2-15.2) H 03/21/22 05:47 Plt Count 166 K/mm3 (140-440) 03/21/22 05:47 Lymph % (Auto) 12.2 % (13.4-35.0) L 03/08/22 09:44 [place] % (Auto) 4.6 % (0.0-7.3) 03/08/22 09:44 Eos % (Auto) 3.0 % (0.0-4.3) 03/08/22 09:44 Baso % (Auto) 0.7 % (0.0-1.8) 03/08/22 09:44 Lymph # (Auto) 0.9 K/mm3 (1.2-5.4) L 03/08/22 09:44 [place] # (Auto) 0.4 K/mm3 (0.0-0.8) 03/08/22 09:44 Eos # (Auto) 0.2 K/mm3 (0.0-0.4) 03/08/22 09:44 Baso # (Auto) 0.1 K/mm3 (0.0-0.1) 03/08/22 09:44 Add Manual Diff Complete 03/21/22 05:47 Total Counted 100 03/21/22 05:47 Seg Neutrophils % Air Brake Adjuster 03/21/22 05:47 Seg Neuts % (Manual) 94.0 % (40.0-70.0) H 03/21/22 05:47 Band Neutrophils % 0 % 03/21/22 05:47 Lymphocytes % (Manual) 3.0 % (13.4-35.0) L 03/21/22 05:47 Reactive Lymphs % (Man) 0 % 03/21/22 05:47 Monocytes % (Manual) 2.0 % (0.0-7.3) 03/21/22 05:47 Eosinophils % (Manual) 1.0 % (0.0-4.3) 03/21/22 05:47 Basophils % (Manual) 0 % (0.0-1.8) 03/21/22 05:47 Metamyelocytes % 0 % 03/21/22 05:47 Myelocytes % 0 % 03/21/22 05:47 Promyelocytes % 0 % 03/21/22 05:47 Blast Cells % 0 % 03/21/22 05:47 Nucleated RBC % Not Reportable 03/21/22 05:47 Seg Neutrophils # 6.0 K/mm3 (1.8-7.7) 03/08/22 09:44 Seg Neutrophils # Man 19.6 K/mm3 (1.8-7.7) H 03/21/22 05:47 Band Neutrophils # 0.0 K/mm3 03/21/22 05:47 Lymphocytes # (Manual) 0.6 K/mm3 (1.2-5.4) L 03/21/22 05:47 Abs React Lymphs (Man) 0.0 K/mm3 03/21/22 05:47 Monocytes # (Manual) 0.4 K/mm3 (0.0-0.8) 03/21/22 05:47 Eosinophils # (Manual) 0.2 K/mm3 (0.0-0.4) 03/21/22 05:47 Basophils # (Manual) 0.0 K/mm3 (0.0-0.1) 03/21/22 05:47 Metamyelocytes # 0.0 K/mm3 03/21/22 05:47 Myelocytes # 0.0 K/mm3 03/21/22 05:47 Promyelocytes # 0.0 K/mm3 03/21/22 05:47 Blast Cells # 0.0 K/mm3 03/21/22 05:47 WBC Morphology Not Reportable 03/21/22 05:47 Hypersegmented Neuts Not Reportable 03/21/22 05:47 Hyposegmented Neuts Not Reportable 03/21/22 05:47 Hypogranular Neuts Not Reportable 03/21/22 05:47 Smudge Cells Not Reportable 03/21/22 05:47 Toxic Granulation Not Reportable 03/21/22 05:47 Toxic Vacuolation Not Reportable 03/21/22 05:47 Dohle Bodies Not Reportable 03/21/22 05:47 Pelger-Huet Anomaly Not Reportable 03/21/22 05:47 Neptali Rods Not Reportable 03/21/22 05:47 Platelet Estimate Consistent w auto 03/21/22 05:47 Clumped Platelets Not Reportable 03/21/22 05:47 Plt Clumps, EDTA Not Reportable 03/21/22 05:47 Large Platelets Not Reportable 03/21/22 05:47 Giant Platelets Not Reportable 03/21/22 05:47 Platelet Satelliting Not Reportable 03/21/22 05:47 Plt Morphology Comment Not Reportable 03/21/22 05:47 RBC Morphology Not Reportable 03/21/22 05:47 Dimorphic RBCs Not Reportable 03/21/22 05:47 Polychromasia Not Reportable 03/21/22 05:47 Hypochromasia Not Reportable 03/21/22 05:47 Poikilocytosis Not Reportable 03/21/22 05:47 Anisocytosis Not Reportable 03/21/22 05:47 Microcytosis Not Reportable 03/21/22 05:47 Macrocytosis Not Reportable 03/21/22 05:47 Spherocytes Not Reportable 03/21/22 05:47 Pappenheimer Bodies Not Reportable 03/21/22 05:47 Sickle Cells Not Reportable 03/21/22 05:47 Target Cells Rare 03/21/22 05:47 Tear Drop Cells Not Reportable 03/21/22 05:47 Ovalocytes Not Reportable 03/21/22 05:47 Helmet Cells Not Reportable 03/21/22 05:47 [place] Bodies Not Reportable 03/21/22 05:47 [place] Rings Not Reportable 03/21/22 05:47 Gold Cells Not Reportable 03/21/22 05:47 Bite Cells Not Reportable 03/21/22 05:47 Crenated Cell Not Reportable 03/21/22 05:47 Elliptocytes Not Reportable 03/21/22 05:47 Acanthocytes (Spur) Not Reportable 03/21/22 05:47 Rouleaux Not Reportable 03/21/22 05:47 Hemoglobin C Crystals Not Reportable 03/21/22 05:47 Schistocytes Not Reportable 03/21/22 05:47 Malaria parasites Not Reportable 03/21/22 05:47 [place]arlos Bodies Not Reportable 03/21/22 05:47 Hem Pathologist Commnt No 03/21/22 05:47 ABG pH 7.316 pH Units (7.350-7.450) L 03/11/22 10:35 ABG pCO2 54.7 mm Hg 03/11/22 10:35 ABG pO2 81.0 mm Hg (80.0-90.0) 03/11/22 10:35 ABG HCO3 27.3 mmol/L (20.0-26.0) H 03/11/22 10:35 ABG O2 Saturation 95.0 % (95.0-99.0) 03/11/22 10:35 ABG O2 Content 18.1 (0.0-44) 03/11/22 10:35 ABG Base Excess 0.2 mmol/L (-2.0-3.0) 03/11/22 10:35 ABG Hemoglobin 13.7 gm/dl (12.0-16.0) 03/11/22 10:35 ABG Carboxyhemoglobin 0.7 % (0.0-5.0) 03/11/22 10:35 ABG Methemoglobin 0.4 % (0.0-1.5) 03/11/22 10:35 Oxyhemoglobin 94.0 % (95.0-99.0) L 03/11/22 10:35 FiO2 90 % 03/11/22 10:35 Sodium 140 mmol/L (137-145) 03/21/22 05:47 Potassium 4.5 mmol/L (3.6-5.0) 03/21/22 05:47 Chloride 99.3 mmol/L (98-107) 03/21/22 05:47 Carbon Dioxide 28 mmol/L (22-30) 03/21/22 05:47 Anion Gap 17 mmol/L 03/21/22 05:47 BUN 140 mg/dL (7-17) H 03/21/22 05:47 Creatinine 2.6 mg/dL (0.6-1.2) H 03/21/22 05:47 Estimated GFR 22 ml/min 03/21/22 05:47 BUN/Creatinine Ratio 54 % 03/21/22 05:47 Glucose 136 mg/dL (65-100) H 03/21/22 05:47 POC Glucose 204 mg/dL (70-105) H 03/21/22 20:19 Calcium 8.9 mg/dL (8.4-10.2) 03/21/22 05:47 Total Bilirubin 0.60 mg/dL (0.1-1.2) 03/04/22 02:51 AST 12 units/L (5-40) 03/04/22 02:51 ALT 6 units/L (7-56) L 03/04/22 02:51 Alkaline Phosphatase 91 units/L (35-129) 03/04/22 02:51 Troponin T < 0.010 ng/mL (0.00-0.029) 03/03/22 13:34 NT-Pro-B Natriuret Pep 47073 pg/mL (0-900) H 03/03/22 13:34 Total Protein 8.4 g/dL (6.3-8.2) H 03/04/22 02:51 Albumin 3.4 g/dL (3.9-5) L 03/04/22 02:51 Albumin/Globulin Ratio 0.7 % 03/04/22 02:51 Urine Color Yellow (Yellow) 03/04/22 17:35 Urine Turbidity Slightly-cloudy (Clear) 03/04/22 17:35 Urine pH 6.0 (5.0-7.0) 03/04/22 17:35 Ur Specific [place] 1.008 (1.003-1.030) 03/04/22 17:35 Urine Protein <15 mg/dl mg/dL (Negative) 03/04/22 17:35 Urine Glucose (UA) Neg mg/dL (Negative) 03/04/22 17:35 Urine Ketones Neg mg/dL (Negative) 03/04/22 17:35 Urine Blood Mod (Negative) 03/04/22 17:35 Urine Nitrite Neg (Negative) 03/04/22 17:35 Urine Bilirubin Neg (Negative) 03/04/22 17:35 Urine Urobilinogen < 2.0 mg/dL (<2.0) 03/04/22 17:35 Ur Leukocyte Esterase Lg (Negative) 03/04/22 17:35 Urine WBC (Auto) 11.0 /HPF (0.0-6.0) H 03/04/22 17:35 Urine RBC (Auto) 2.0 /HPF (0.0-6.0) 03/04/22 17:35 U Epithel Cells (Auto) 1.0 /HPF (0-13.0) 03/04/22 17:35 Urine Bacteria (Auto) 1+ /HPF (Negative) 03/04/22 17:35 Urine Mucus Few /HPF 03/04/22 17:35 Urine Yeast (Budding) Few /HPF 03/04/22 17:35 Urine Creatinine 41.2 mg/dL (0.1-20.0) H 03/04/22 17:35 Urine Sodium 126 mmol/L 03/04/22 17:35 Urine Total Protein 16 mg/dL (5-11.8) H 03/04/22 17:35 Coronavirus (PCR) Negative (Negative) 03/04/22 09:57 Microbiology: Microbiology 03/18/22 Unknown Foot - Left Wound Culture - Preliminary Proteus Mirabilis Gram Negative Yohan#2 Gale/IV: Voiding Method External Female Catheter Active Medications - Current Medications Current Medications: Generic Name Dose Route Start Last Admin Trade Name Freq PRN Reason Stop Dose Admin Acetaminophen 650 mg 03/03/22 20:28 03/15/22 09:14 Acetaminophen 325 Mg Tab PO 650 mg Q4H PRN Administration Pain MILD(1-3)/Fever >100.5/HOFFMAN Cetirizine HCl 10 mg 03/12/22 15:00 03/21/22 09:24 Cetirizine 10 Mg Tab PO 10 mg QDAY VERN Administration Dextrose 50 ml 03/20/22 09:46 Dextrose 50% In Water (25gm) 50 Ml Syringe IV Q30MIN PRN Hypoglycemia Protocol Fluticasone Propionate 200 mcg 03/13/22 20:00 03/21/22 09:22 Fluticasone Propionate Nasal [place] 16 Gm NS 200 mcg QDAY VERN Administration Guaifenesin 600 mg 03/12/22 15:00 03/21/22 21:07 Guaifenesin Er 600 Mg Tab PO 600 mg BID VERN Administration Heparin Sodium (Porcine) 7,500 unit 03/16/22 14:00 03/22/22 06:31 Heparin 5,000 Unit/1 Ml Vial SUB-Q 7,500 unit Q8HR VERN Administration Insulin Human Isoph/Insulin Regular 15 unit 03/20/22 22:00 03/21/22 21:33 Insulin Nph/Regular 70/30 Inj SUB-Q 15 unit BID VERN Administration Insulin Human Regular 0 units 03/20/22 11:30 03/21/22 21:07 Insulin Regular, Human 100 Units/1 Ml SUB-Q 3 units ACHS VERN Administration Protocol Methylprednisolone Sodium Succinate 60 mg 03/15/22 10:00 03/21/22 21:06 Methylprednisolone Sod Succinate 125 Mg/2 Ml Inj IV 60 mg Q12HR VERN Administration Metoclopramide HCl 5 mg 03/11/22 12:00 Metoclopramide 10 Mg/2 Ml Inj IV Q6H PRN Nausea And Vomiting Morphine Sulfate 2 mg 03/03/22 20:28 Morphine 2 Mg/1 Ml Inj IV Q4H PRN Pain, Moderate (4-6) Ondansetron HCl 4 mg 03/03/22 20:28 Ondansetron 4 Mg/2 Ml Inj IV Q8H PRN Nausea And Vomiting Oxycodone/Acetaminophen 1 tab 03/03/22 20:28 03/09/22 12:06 Oxycodone /Acetaminophen 5-325mg Tab PO 1 tab Q6H PRN Administration Pain, Moderate (4-6) Pantoprazole Sodium 40 mg 03/12/22 15:00 03/22/22 06:31 Pantoprazole 40 Mg Tab PO 40 mg QDAC VERN Administration Polyethylene Glycol 17 gm 03/16/22 10:00 03/21/22 09:24 Polyethylene Glycol 3350 17 Gm Powder PO Not Given QDAY VERN Senna/Docusate Sodium 2 tab 03/06/22 11:00 03/21/22 22:08 Sennosides/Docusate Sodium 8.6/50 Mg Tab PO Not Given Q12H VERN Sildenafil Citrate 20 mg 03/11/22 14:00 03/21/22 20:55 Sildenafil 20 Mg Tab PO 20 mg TID VERN Administration Sodium Chloride 10 ml 03/03/22 22:00 03/21/22 21:15 Sodium Chloride 0.9% 10 Ml Flush Syringe IV 10 ml BID VERN Administration Sodium Chloride 10 ml 03/03/22 20:28 Sodium Chloride 0.9% 10 Ml Flush Syringe IV PRN PRN LINE FLUSH Torsemide 40 mg 03/17/22 10:00 03/21/22 09:23 Torsemide 10 Mg Tab PO 40 mg DAILY VERN Administration Nutrition/Malnutrition Assess - Dietary Evaluation Nutrition/Malnutrition Findings: Nutrition Notes Start: 03/11/22 14:05 Freq: Status: Active Protocol: Document 03/11/22 14:05 RAOUL (Rec: 03/11/22 14:21 RAOUL [id number]) Nutrition Notes Need for Assessment generated from: LOS Initial or Follow up Assessment Current Diagnosis Acute Kidney Injury,CKD(stage I-IV),Respiratory Failure, Malnutrition Other Pertinent Diagnosis HFpEF, Cor Pulmonale, UTI, Cystitis. Current Diet Cardiac -Renal- Diet (from D 03/11). Labs/Tests 03/11: BUN 108, Crea 2.5, Glu 141. Pertinent Medications 03/11: Nutritionally unremarkable. 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 Weight Status Morbidly Obese Subjective/Other Information RD consult for LOS assessment. Pt's PO intake of meals has been Good (>75%) but fairly tolerated, according to ADL notes. I will prescribe renal modification to current diet to support Pt's RIN/CKD condition during LOS. Pt is on High-Flow Nasal Cannula, O2 saturation @ 96%, according to Physical Assessment History notes. Pt presents an > as signs of concern for skin risk at this time, according to Physical Assessment History notes. Percent of energy/protein needs met: Prescribed Cardiac -Renal- Diet provides for energy/ protein needs (2,230 Kcal/85 g ) during LOS. Burn Absent Trauma Absent GI Symptoms None Food Allergy Yes Skin Integrity/Comment Unspecified dryness and flakiness. Current % PO Good (75-100%) Minimum of two criteria No Fluid Accumulation N/A Reduced Train Attendant Strength N/A (non-severe) Protein-Calorie Malnutrition N\A #1 Nutrition Diagnosis Altered nutrition-related laboratory values Etiology RIN/CKD III. As Evidenced by Signs and Symptoms 03/11: BUN 108, Crea 2.5. Is patient on ventilator? No Is Patient Ambulatory and/or Out of Bed Yes REE-([place]-ambulatory/OOB) [ 2386.969 [id number]] Kcal/Kg value to use for calculation 10 Approximate Energy Requirements Using 1347 kcal/Kg Calculation Used for Recommendations Kcal/kg Additional Notes Protein: 0.6-0.8 g/Kg AdjBW; 56-75 g/day. Fluids: 1 ml/Kcal, or as per MD. Nutrition Intervention Change Diet Order: Modify to Cardiac -Renal- Diet . Goal #1 Adjust the dietary intervention to better serve Pt's needs and clinical conditions during LOS. Additional Comments Continue monitoring food tolerance, %PO intake of meals , and BM.
[2022-03-22] MEDS: INSULIN REGULAR, HUMAN 100 UNITS/1 ML SUB-Q SCH ×4 (08:35→22:14)
[2022-03-22] MEDS: SILDENAFIL 20 MG TAB PO SCH ×3 (08:35→22:14)
--- NOTE | 2022-03-22 09:22 | Progress Note ---
Assessment and Plan - Patient Problems (1) Acute kidney injury superimposed on chronic kidney disease Current Visit: Yes Status: Acute Plan to address problem: Overall renal function remained stable at present time. Continue to avoid nephrotoxins and maintain mean arterial pressures above 65 mmHg. We will continue to monitor closely at this time. (2) Acute exacerbation of congestive heart failure Current Visit: Yes Status: Acute Qualifiers: Heart failure type: combined systolic and diastolic Qualified Code(s): I50.43 - Acute on chronic combined systolic (congestive) and diastolic (congestive) heart failure Plan to address problem: Transition to oral torsemide regimen with adequate urine output noted. Respiratory status is also starting to show improvement as her oxygen requirements have started to decrease. Cardiology evaluation and recommendations reviewed. Counseled on appropriate fluid and sodium restriction. (3) Acute respiratory failure with hypoxia Current Visit: Yes Status: Acute Plan to address problem: Pulmonology recommendations reviewed. Oxygen requirements are starting to decrease. She remains on IV steroids which likely is also contributing to her elevated BUN levels. She does not have any symptoms concerning for uremia at present time therefore there is no need for renal replacement therapy. (4) Hypertensive chronic kidney disease with stage 1 through stage 4 chronic kidney disease, or unspecified chronic kidney disease Current Visit: Yes Status: Chronic Plan to address problem: Continue to monitor patient's blood pressures on current regimen. (5) Urinary tract infection due to ESBL Klebsiella Current Visit: Yes Status: Acute Plan to address problem: Patient has completed course of antibiotics. Asymptomatic at present time. Subjective Date of service: 03/22/22 Principal diagnosis: Hypoxic respiratory failure Interval history: No acute complaints. Labs from yesterday indicates stable renal function. No new labs today. Objective - Vital Signs Vital signs: Vital Signs - 12hr 03/21/22 03/21/22 03/21/22 21:57 22:00 22:22 Temperature Pulse Rate 62 74 Pulse Rate [ 68 From Monitor] Respiratory 18 23 Rate Blood Pressure O2 Sat by Pulse 96 98 97 Oximetry 03/22/22 03/22/22 03/22/22 00:06 03:29 04:13 Temperature 97.4 F L 97.3 F L Pulse Rate 68 68 62 Pulse Rate [ From Monitor] Respiratory 20 23 20 Rate Blood Pressure 123/66 127/67 O2 Sat by Pulse 93 100 97 Oximetry 03/22/22 08:20 Temperature Pulse Rate Pulse Rate [ 62 From Monitor] Respiratory 21 Rate Blood Pressure O2 Sat by Pulse 96 Oximetry - General Appearance General appearance: well-developed EENT: ATNC Neck: no JVD Respiratory: Present: Clear to Ascultation Cardiology: regular Gastrointestinal: normal Integumentary: no rash Neurologic: no focal deficit, alert and oriented x3 Musculoskeletal: deferred Psychiatric: cooperative - Lab 03/21/22 05:47 03/21/22 05:47 Most recent lab results ABG pH 7.316 pH Units (7.350-7.450) L 03/11/22 10:35 ABG pCO2 54.7 mm Hg 03/11/22 10:35 ABG pO2 81.0 mm Hg (80.0-90.0) 03/11/22 10:35 ABG HCO3 27.3 mmol/L (20.0-26.0) H 03/11/22 10:35 ABG O2 Saturation 95.0 % (95.0-99.0) 03/11/22 10:35 Calcium 8.9 mg/dL (8.4-10.2) 03/21/22 05:47 Urine Creatinine 41.2 mg/dL (0.1-20.0) H 03/04/22 17:35 Urine Sodium 126 mmol/L 03/04/22 17:35 Urine Total Protein 16 mg/dL (5-11.8) H 03/04/22 17:35 - Allied health notes Allied health notes reviewed: nursing Medications & Allergies - Medications Allergies/Adverse Reactions: Allergies iodine Allergy (Verified 03/03/22 12:49) Anaphylaxis Penicillins Allergy (Verified 03/03/22 12:49) Anaphylaxis shellfish derived Allergy (Verified 03/03/22 12:49) Anaphylaxis Home Medications: Home Medications Medication Instructions Recorded Confirmed Last Taken Type Acetaminophen [Non-Aspirin Extra 500 mg PO Q8HR PRN 03/04/22 03/04/22 03/01/22 History Strength] Aspirin EC 325 mg PO 4XW 03/04/22 03/04/22 03/02/22 History Hydrocodone-Acetamin 2.5-325 5 - 325 mg PO Q6HR PRN 03/04/22 03/04/22 03/02/22 History Mucus Relief ER 600 mg PO BID 03/04/22 03/05/22 03/02/22 History Omeprazole 40 mg PO DAILY 03/04/22 03/05/22 03/02/22 History Phenazopyridine 200 mg PO TID 03/04/22 03/04/22 03/03/22 History Senna Plus Tablet 8.6 - 50 mg PO BID MDD CONSTIPATION 03/04/22 03/05/22 03/02/22 History Diclofenac Sodium ER 75 mg PO Q8HR 03/05/22 03/05/22 03/02/22 History Nifedipine ER 60 mg PO DAILY 03/05/22 03/05/22 03/02/22 History Vitamin D3 25 mg PO DAILY 03/05/22 03/05/22 03/02/22 History Active Medications: Generic Name Dose Route Start Last Admin Trade Name Freq PRN Reason Stop Dose Admin Acetaminophen 650 mg 03/03/22 20:28 03/15/22 09:14 Acetaminophen 325 Mg Tab PO 650 mg Q4H PRN Administration Pain MILD(1-3)/Fever >100.5/HOFFMAN Cetirizine HCl 10 mg 03/12/22 15:00 03/21/22 09:24 Cetirizine 10 Mg Tab PO 10 mg QDAY VERN Administration Dextrose 50 ml 03/20/22 09:46 Dextrose 50% In Water (25gm) 50 Ml Syringe IV Q30MIN PRN Hypoglycemia Protocol Fluticasone Propionate 200 mcg 03/13/22 20:00 03/21/22 09:22 Fluticasone Propionate Nasal [place] 16 Gm NS 200 mcg QDAY VERN Administration Guaifenesin 600 mg 03/12/22 15:00 03/21/22 21:07 Guaifenesin Er 600 Mg Tab PO 600 mg BID VERN Administration Heparin Sodium (Porcine) 7,500 unit 03/16/22 14:00 03/22/22 06:31 Heparin 5,000 Unit/1 Ml Vial SUB-Q 7,500 unit Q8HR VERN Administration Insulin Human Isoph/Insulin Regular 15 unit 03/20/22 22:00 03/21/22 21:33 Insulin Nph/Regular 70/30 Inj SUB-Q 15 unit BID VERN Administration Insulin Human Regular 0 units 03/20/22 11:30 03/22/22 08:35 Insulin Regular, Human 100 Units/1 Ml SUB-Q 2 units ACHS VERN Administration Protocol Methylprednisolone Sodium Succinate 60 mg 03/15/22 10:00 03/21/22 21:06 Methylprednisolone Sod Succinate 125 Mg/2 Ml Inj IV 60 mg Q12HR VERN Administration Metoclopramide HCl 5 mg 03/11/22 12:00 Metoclopramide 10 Mg/2 Ml Inj IV Q6H PRN Nausea And Vomiting Morphine Sulfate 2 mg 03/03/22 20:28 Morphine 2 Mg/1 Ml Inj IV Q4H PRN Pain, Moderate (4-6) Ondansetron HCl 4 mg 03/03/22 20:28 Ondansetron 4 Mg/2 Ml Inj IV Q8H PRN Nausea And Vomiting Oxycodone/Acetaminophen 1 tab 03/03/22 20:28 03/09/22 12:06 Oxycodone /Acetaminophen 5-325mg Tab PO 1 tab Q6H PRN Administration Pain, Moderate (4-6) Pantoprazole Sodium 40 mg 03/12/22 15:00 03/22/22 06:31 Pantoprazole 40 Mg Tab PO 40 mg QDAC VERN Administration Polyethylene Glycol 17 gm 03/16/22 10:00 03/21/22 09:24 Polyethylene Glycol 3350 17 Gm Powder PO Not Given QDAY VERN Senna/Docusate Sodium 2 tab 03/06/22 11:00 03/21/22 22:08 Sennosides/Docusate Sodium 8.6/50 Mg Tab PO Not Given Q12H VERN Sildenafil Citrate 20 mg 03/11/22 14:00 03/22/22 08:35 Sildenafil 20 Mg Tab PO 20 mg TID VERN Administration Sodium Chloride 10 ml 03/03/22 22:00 03/21/22 21:15 Sodium Chloride 0.9% 10 Ml Flush Syringe IV 10 ml BID VERN Administration Sodium Chloride 10 ml 03/03/22 20:28 Sodium Chloride 0.9% 10 Ml Flush Syringe IV PRN PRN LINE FLUSH Torsemide 40 mg 03/17/22 10:00 03/21/22 09:23 Torsemide 10 Mg Tab PO 40 mg DAILY VERN Administration
[2022-03-22] MEDS: methylPREDNISolone Sod Succinate 125 MG/2 ML INJ IV SCH (10:41)
[2022-03-22] MEDS: TORSEMIDE 10 MG TAB PO SCH (10:41)
[2022-03-22] MEDS: CETIRIZINE 10 MG TAB PO SCH (10:41)
[2022-03-22] MEDS: guaiFENesin ER 600 MG TAB PO SCH ×2 (10:41→22:14)
[2022-03-22] MEDS: POLYETHYLENE GLYCOL 3350 17 GM POWDER PO SCH (10:42)
[2022-03-22] MEDS: INSULIN NPH/REGULAR 70/30 INJ SUB-Q SCH ×2 (10:42→22:14)
[2022-03-22] MEDS: SENNOSIDES/DOCUSATE SODIUM 8.6/50 MG TAB PO SCH ×2 (10:42→22:15)
[2022-03-22] MEDS: FLUTICASONE PROPIONATE NASAL SPRAY 16 GM NS SCH (10:42)
--- NOTE | 2022-03-22 12:08 | Progress Note ---
Assessment and Plan 71 y/o female with severe pulm htn and Eliseo with acute on chronic respiratory failure. 03/22/22: Dropped steroids to daily today. Continue sildenafil. Patient still needs RHC, most likely this would have to happen as an outpatient. She is not a candidate for surgery given her degree of Pulm HTN. I do not recommend general anesthesia for her at this time. Especially without a right heart cath knowing what her true numbers are. If able to get to her baseline flow, hopeful discharge soon. 03/21/22: Continue to wean for sats >88%. If not mistaken, baseline flow at home was 5. Continue sildenafil. Will drop steroids tomorrow. 03/20/22: H/H was stable. continue sildenafil. Continue to wean FiO2 as tolerated. Still needs RHC. Overall prognosis is guarded to poor. Will consider decreasing steroids tomorrow if she can maintain on 7 liters. 03/18/22: consider checking CBC with diff. Continue Sildenafil for now. Needs RHC to assess if true Type 1 Pulm HTN. Overall prognosis is guarded to poor. 03/17/22: Given increase in O2 requirement, will hold on dropping steroids today. Otherwise, same recs as the day before. 03/16/22: Will drop steroids to daily starting tomorrow. Continue TID Sildenafil. Reviewed Social work note. There is no debate about therapy. The only safe thing that can be administered at this time is sildenafil three times daily which she is tolerating. No further therapy would be started without RHC number. I reviewed a CM note from 2 days prior that states [facility] would be willing to accept what is documented as 30 liters of flow. Patient is now on 20. Would continue daily net negative state as long as blood pressure and renal function will allow. Continue to wean FiO2 as tolerated for sats >88% 03/15/22: Decreased steroids to BID. Continue Sildenafil at current dosing. Continue daily net negative state if possible and wean FiO2 for sats >88%. Still feel patient would benefit from right and left heart cath if able to be weaned off HFNC and able to lie flat. 03/09/22: Without an exact cause for her Pulm HTN, would be difficult to say if there is anything else that could be done for her severe pulm HTN. If this is truly worsening of lung disease, given the rate that it has happened, even treatment of COPD would not improve quality of life significantly. If she has developed type 1 pulmonary HTN, she would need at least 2-3 drug therapy and she may not tolerate this as well given her age and current clinical status. A right and left heart cath would be necessary before determination of this degree of therapy. Do not disagree with hospice referral again. Has been on steroid therapy less than 24 hours. Would continue to see if any benefit. Prognosis still remains guarded. 03/08/22: Last time this patient was seen in our office was 2015. At that time she only had mild COPD. Unable to obtain repeat divina at this time. She did not smoke since being on hospice care and was recently discharged secondary to lack of further decline (although one could argue for it now). Will attempt steroid therapy to see if this improves oxygen requirement, however as stated earlier, patient may benefit from right heart cath with drug study if no improvement on steroids. V/Q done but was not ordered looking for acute PE but more for concern for CTEPH. Guarded prognosis. 03/07/22: No new recs. Will find old office notes today to see the last time we saw this patient. 03/06/22: CXR read by rads suggest unchanged edema. Agree with continued diure sis and fluid restriction. Wean Vent for sats >88%. Continue NIV therapy at night 1. Cardiology following. This degree of Pulm HTN is not seen with just ELISEO alone, especially in someone who is compliant with therapy. Defer to cards but would consider right heart cath if not already done previously 2. Continue bipap therapy at night as well as PRN during the day. Patient does not know her settings for her machine at home and my office did not manipulate these numbers last. Will titrate sat of >88% and comfort 3. Agree with continued diuresis, CXR shows continued vascular congestion, maybe slightly better, maybe 4. Wean FiO2 for sats >88% Subjective Date of service: 03/22/22 Principal diagnosis: Hypoxic respiratory failure Interval history: No acute events. Down to 6 liters. Wears 5 at home. Objective Vital Signs - 12hr 03/22/22 03/22/22 03/22/22 03:29 04:13 08:20 Temperature 97.3 F L Pulse Rate 68 62 Pulse Rate [ 62 From Monitor] Respiratory 23 20 21 Rate Blood Pressure 127/67 O2 Sat by Pulse 100 97 96 Oximetry Constitutional: no acute distress, alert, other (obese) Eyes: non-icteric ENT: oropharynx moist Neck: supple, other (obese) Effort: mildly labored Ascultation: Bilateral: diminished breath sounds, rales Percussion: Bilateral: not dull Cardiovascular: regular rate and rhythm (no mrg) Gastrointestinal: normoactive bowel sounds, soft, non-tender, non-distended Integumentary: normal Extremities: no cyanosis, no edema, pink and warm Neurologic: normal mental status, non-focal exam, pupils equal and round Psychiatric: mood appropriate, affect normal CBC and BMP: 03/21/22 05:47 03/21/22 05:47 ABG, PT/INR, D-dimer: ABG ABG pH 7.316 pH Units (7.350-7.450) L 03/11/22 10:35 ABG pCO2 54.7 mm Hg 03/11/22 10:35 ABG pO2 81.0 mm Hg (80.0-90.0) 03/11/22 10:35 ABG O2 Saturation 95.0 % (95.0-99.0) 03/11/22 10:35 Abnormal lab findings: Abnormal Labs 03/03/22 03/03/22 03/03/22 13:34 13:34 13:34 WBC RBC Hgb Hct RDW 16.1 H Lymph % (Auto) 9.7 L Lymph # (Auto) 0.8 L Seg Neutrophils % 84.6 H Seg Neuts % (Manual) Lymphocytes % (Manual) Seg Neutrophils # Man Lymphocytes # (Manual) ABG pH ABG HCO3 Oxyhemoglobin Sodium Potassium Chloride BUN 47 H Creatinine 1.7 H Glucose 101 H POC Glucose ALT NT-Pro-B Natriuret Pep 38183 H Total Protein 9.1 H Albumin 3.5 L Urine WBC (Auto) Urine Creatinine Urine Total Protein 03/04/22 03/04/22 03/04/22 02:51 03:05 17:35 WBC RBC Hgb Hct RDW 16.0 H Lymph % (Auto) 8.9 L Lymph # (Auto) 0.8 L Seg Neutrophils % 84.1 H Seg Neuts % (Manual) Lymphocytes % (Manual) Seg Neutrophils # Man Lymphocytes # (Manual) ABG pH ABG HCO3 Oxyhemoglobin Sodium Potassium Chloride BUN 46 H Creatinine 1.8 H Glucose 119 H POC Glucose ALT 6 L NT-Pro-B Natriuret Pep Total Protein 8.4 H Albumin 3.4 L Urine WBC (Auto) 11.0 H Urine Creatinine Urine Total Protein 03/04/22 03/05/22 03/05/22 17:35 12:08 15:18 WBC RBC Hgb Hct RDW Lymph % (Auto) Lymph # (Auto) Seg Neutrophils % Seg Neuts % (Manual) Lymphocytes % (Manual) Seg Neutrophils # Man Lymphocytes # (Manual) ABG pH ABG HCO3 Oxyhemoglobin Sodium Potassium 6.4 H* D Chloride BUN 55 H 55 H Creatinine 2.0 H 2.0 H Glucose 120 H 116 H POC Glucose ALT NT-Pro-B Natriuret Pep Total Protein Albumin Urine WBC (Auto) Urine Creatinine 41.2 H Urine Total Protein 16 H 03/06/22 03/08/22 03/08/22 05:25 09:44 09:44 WBC RBC Hgb Hct RDW 15.9 H Lymph % (Auto) 12.2 L Lymph # (Auto) 0.9 L Seg Neutrophils % 79.5 H Seg Neuts % (Manual) Lymphocytes % (Manual) Seg Neutrophils # Man Lymphocytes # (Manual) ABG pH ABG HCO3 Oxyhemoglobin Sodium Potassium Chloride BUN 58 H 69 H Creatinine 2.1 H 2.3 H Glucose 103 H POC Glucose ALT NT-Pro-B Natriuret Pep Total Protein Albumin Urine WBC (Auto) Urine Creatinine Urine Total Protein 03/08/22 03/09/22 03/10/22 14:36 05:43 07:16 WBC RBC Hgb Hct RDW Lymph % (Auto) Lymph # (Auto) Seg Neutrophils % Seg Neuts % (Manual) Lymphocytes % (Manual) Seg Neutrophils # Man Lymphocytes # (Manual) ABG pH ABG HCO3 Oxyhemoglobin Sodium Potassium 5.3 H D Chloride BUN 70 H 82 H 95 H Creatinine 2.4 H 2.5 H 2.3 H Glucose 125 H 149 H 141 H POC Glucose ALT NT-Pro-B Natriuret Pep Total Protein Albumin Urine WBC (Auto) Urine Creatinine Urine Total Protein 03/11/22 03/11/22 03/12/22 06:44 10:35 06:27 WBC RBC Hgb Hct RDW Lymph % (Auto) Lymph # (Auto) Seg Neutrophils % Seg Neuts % (Manual) Lymphocytes % (Manual) Seg Neutrophils # Man Lymphocytes # (Manual) ABG pH 7.316 L ABG HCO3 27.3 H Oxyhemoglobin 94.0 L Sodium Potassium Chloride BUN 108 H 113 H Creatinine 2.5 H 2.4 H Glucose 141 H 216 H POC Glucose ALT NT-Pro-B Natriuret Pep Total Protein Albumin Urine WBC (Auto) Urine Creatinine Urine Total Protein 03/13/22 03/14/22 03/15/22 10:19 09:26 07:37 WBC RBC Hgb Hct RDW Lymph % (Auto) Lymph # (Auto) Seg Neutrophils % Seg Neuts % (Manual) Lymphocytes % (Manual) Seg Neutrophils # Man Lymphocytes # (Manual) ABG pH ABG HCO3 Oxyhemoglobin Sodium 136 L Potassium Chloride 97.3 L BUN 121 H 131 H 134 H Creatinine 2.4 H 2.6 H 2.5 H Glucose 279 H 146 H 156 H POC Glucose ALT NT-Pro-B Natriuret Pep Total Protein Albumin Urine WBC (Auto) Urine Creatinine Urine Total Protein 03/16/22 03/17/22 03/18/22 05:19 04:00 23:15 WBC 18.4 H RBC 5.22 H Hgb 14.9 H Hct 47.7 H RDW 15.9 H Lymph % (Auto) Lymph # (Auto) Seg Neutrophils % Seg Neuts % (Manual) 94.0 H Lymphocytes % (Manual) 2.0 L Seg Neutrophils # Man 17.3 H Lymphocytes # (Manual) 0.4 L ABG pH ABG HCO3 Oxyhemoglobin Sodium Potassium Chloride BUN 135 H 129 H Creatinine 2.5 H 2.2 H Glucose 147 H 182 H POC Glucose ALT NT-Pro-B Natriuret Pep Total Protein Albumin Urine WBC (Auto) Urine Creatinine Urine Total Protein 03/20/22 03/20/22 03/20/22 05:14 11:33 15:11 WBC RBC Hgb Hct RDW Lymph % (Auto) Lymph # (Auto) Seg Neutrophils % Seg Neuts % (Manual) Lymphocytes % (Manual) Seg Neutrophils # Man Lymphocytes # (Manual) ABG pH ABG HCO3 Oxyhemoglobin Sodium 136 L Potassium Chloride 97.6 L BUN 133 H Creatinine 2.6 H Glucose 239 H POC Glucose 400 H 287 H ALT NT-Pro-B Natriuret Pep Total Protein Albumin Urine WBC (Auto) Urine Creatinine Urine Total Protein 03/20/22 03/20/22 03/21/22 15:54 20:29 05:47 WBC 20.9 H RBC 5.10 H Hgb 14.5 H Hct 45.9 H RDW 15.7 H Lymph % (Auto) Lymph # (Auto) Seg Neutrophils % Seg Neuts % (Manual) 94.0 H Lymphocytes % (Manual) 3.0 L Seg Neutrophils # Man 19.6 H Lymphocytes # (Manual) 0.6 L ABG pH ABG HCO3 Oxyhemoglobin Sodium Potassium Chloride BUN Creatinine Glucose POC Glucose 242 H 207 H ALT NT-Pro-B Natriuret Pep Total Protein Albumin Urine WBC (Auto) Urine Creatinine Urine Total Protein 03/21/22 03/21/22 03/21/22 05:47 07:57 12:16 WBC RBC Hgb Hct RDW Lymph % (Auto) Lymph # (Auto) Seg Neutrophils % Seg Neuts % (Manual) Lymphocytes % (Manual) Seg Neutrophils # Man Lymphocytes # (Manual) ABG pH ABG HCO3 Oxyhemoglobin Sodium Potassium Chloride BUN 140 H Creatinine 2.6 H Glucose 136 H POC Glucose 125 H 169 H ALT NT-Pro-B Natriuret Pep Total Protein Albumin Urine WBC (Auto) Urine Creatinine Urine Total Protein 03/21/22 03/21/22 03/22/22 16:14 20:19 08:11 WBC RBC Hgb Hct RDW Lymph % (Auto) Lymph # (Auto) Seg Neutrophils % Seg Neuts % (Manual) Lymphocytes % (Manual) Seg Neutrophils # Man Lymphocytes # (Manual) ABG pH ABG HCO3 Oxyhemoglobin Sodium Potassium Chloride BUN Creatinine Glucose POC Glucose 153 H 204 H 156 H ALT NT-Pro-B Natriuret Pep Total Protein Albumin Urine WBC (Auto) Urine Creatinine Urine Total Protein Allied health notes reviewed: nursing
--- NOTE | 2022-03-22 12:25 | Progress Note ---
Assessment and Plan - Patient Problems (1) Interstitial edema Current Visit: Yes Status: Acute Plan to address problem: 71-year-old woman with morbid obesity, obstructive sleep apnea, hypertension, presents with shortness of breath and chest x-ray evidence of mild to moderate interstitial edema. Previous invasive cardiac work-up 10 years ago showed no significant coronary artery disease. Prior left ventricular systolic function assessment was well-preserved at 50%. Echocardiogram on this presentation demonstrates well-preserved left ventricular systolic function. Major finding on the echocardiogram is the presence of severe cor pulmonale with dilated right heart chambers, moderate to severe tricuspid regurgitation and severe pulmonary hypertension with pulmonary artery systolic pressures approaching systemic levels. Chronic lung disease appears to be primary etiology for dyspnea, respiratory insufficiency and hypoxemia. Subjective Date of service: 03/22/22 Principal diagnosis: Hypoxic respiratory failure Interval history: Patient is comfortable, no cardiac complaints, no new cardiac events reported. Patient is on nasal oxygen. 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 Objective Vital Signs Temp Pulse Pulse Resp BP BP Pulse Ox 03/22/22 08:20 62 21 96 03/22/22 04:13 97.3 F L 62 20 127/67 97 03/22/22 03:29 68 23 100 03/22/22 00:06 97.4 F L 68 20 123/66 93 03/21/22 22:22 74 23 97 03/21/22 22:00 62 68 18 98 03/21/22 21:57 96 03/21/22 19:35 97.5 F L 106 H 19 116/80 98 03/21/22 17:12 98 F 76 18 152/89 98 - Physical Examination General: No Apparent Distress, Other (obesity) HEENT: Positive: PERRL Neck: Positive: neck supple Cardiac: Positive: Reg Rate and Rhythm Lungs: Positive: Decreased Breath Sounds Neuro: Positive: Grossly Intact Abdomen: Positive: Soft Skin: Positive: Clear Extremities: Present: edema (Minimal) - Imaging and Cardiology EKG: report reviewed (Sinus tachycardia no acute ST-T wave changes) - Allied health notes Allied health notes reviewed: nursing
--- NOTE | 2022-03-22 15:33 | Progress Note ---
Assessment and Plan Cultures: Urine culture ESBL E. coli 03/18/2022 left foot wound culture: Proteus mirabilis, GNR A/P: 71-year-old female with CHF, severe pulmonary arterial hypertension, peripheral vascular disease, CKD with: #Left heel chronic nonhealing ulcer, x-ray with underlying osteomyelitis: Culture growing Proteus mirabilis. Etiology is pressure ulcer in association with underlying peripheral vascular disease. Revascularization is currently on hold due to elevated creatinine. #ESBL E. coli UTI: Completed antibiotics #RIN on CKD: Renally dose medications #Acute CHF, severe pulmonary arterial hypertension, right heart failure #Penicillin allergy Recs: X-ray shows destructive changes to her left calcaneum. She has underlying peripheral vascular disease. Given her multiple comorbidities, complete cure is going to be unlikely. For now, we will start her on IV ceftriaxone. Arabella Melo MD, FACP, [facility] ([facility]) O: [phone] F: [phone] C: [phone] Subjective Date of service: 03/22/22 Principal diagnosis: Hypoxic respiratory failure Interval history: ID was reconsulted due to left heel osteomyelitis. Patient afebrile. Denies any new complaints. On oxygen. Objective - Exam Narrative Exam: Physical Exam: Constitutional: Alert, cooperative. No acute distress Head, Ears, Nose: Normocephalic, atraumatic. External ears, nose normal Eyes: Conjunctivae/corneas clear. No icterus. No ptosis. Neck: Supple, no meningeal signs Cardiovascular: S1, S2 + Respiratory: AE fair bilaterally GI: Soft, non-tender; bowel sounds normal. No peritoneal signs Musculoskeletal: Left heel dressing present, LLE with ischemic changes, cool to touch Skin: No rash or abscess Hem/Lymphatic: No palpable cervical or supraclavicular nodes. No lymphangitis Psych: Mood ok. Affect normal Neurological: Awake, alert, oriented. No gross abnormality - Constitutional Vitals: Vital Signs Temp Pulse Resp BP Pulse Ox 97.8 F 86 20 124/79 95 03/22/22 14:22 03/22/22 14:22 03/22/22 14:22 03/22/22 14:22 03/22/22 14:22 Temperature -Last 24 Hours Temperature 97.8 F Temperature 97.3 F Temperature 97.4 F Temperature 97.5 F Temperature 98 F - Labs CBC & Chem 7: 03/21/22 05:47 03/21/22 05:47 Labs: Abnormal lab results 03/21/22 03/21/22 03/22/22 Range/Units 16:14 20:19 08:11 POC Glucose 153 H 204 H 156 H (70-105) mg/dL 03/22/22 Range/Units 12:17 POC Glucose 157 H (70-105) mg/dL
[2022-03-22] MEDS ORDERED: ZOLPIDEM 5 MG TAB PO PRN (22:00)
[2022-03-22] MEDS ORDERED: MELATONIN 5 MG TAB PO PRN (22:00)
[2022-03-22] MEDS: GABAPENTIN 300 MG CAP PO SCH (22:14)
[2022-03-23] MEDS: HEPARIN 5,000 UNIT/1 ML VIAL SUB-Q SCH ×3 (05:10→21:08)
--- NOTE | 2022-03-23 09:10 | Progress Note ---
Assessment and Plan Cultures: Urine culture ESBL E. coli 03/18/2022 left foot wound culture: Proteus mirabilis, GNR A/P: 71-year-old female with CHF, severe pulmonary arterial hypertension, peripheral vascular disease, CKD with: #Left heel chronic nonhealing ulcer, x-ray with underlying osteomyelitis: Culture growing Proteus mirabilis. Etiology is pressure ulcer in association with underlying peripheral vascular disease. Revascularization is currently on hold due to elevated creatinine. X-ray shows destructive changes to her left calcaneum. She has underlying peripheral vascular disease. Given her multiple comorbidities, complete cure is going to be unlikely. For now, we have started her on IV ceftriaxone. #ESBL E. coli UTI: Completed antibiotics #RIN on CKD: Renally dose medications #Acute CHF, severe pulmonary arterial hypertension, right heart failure #Penicillin allergy Recs: -continue IV ceftriaxone, D2 Arabella Melo MD, FACP, [facility] ([facility]) O: [phone] F: [phone] C: [phone] Subjective Date of service: 03/23/22 Principal diagnosis: Hypoxic respiratory failure Interval history: Afebrile. On BiPAP this morning. Tolerating abx. Objective - Exam Narrative Exam: Physical Exam: Constitutional: Alert, cooperative. No acute distress Head, Ears, Nose: Normocephalic, atraumatic. External ears, nose normal Eyes: Conjunctivae/corneas clear. No icterus. No ptosis. Neck: Supple, no meningeal signs Oral: biPAP Cardiovascular: S1, S2 + Respiratory: AE fair bilaterally GI: Soft, non-tender; bowel sounds normal. No peritoneal signs Musculoskeletal: Left heel dressing present, LLE with ischemic changes, cool to touch Skin: No rash or abscess Hem/Lymphatic: No palpable cervical or supraclavicular nodes. No lymphangitis Psych: Mood ok. Affect normal Neurological: Awake, alert, oriented. No gross abnormality - Constitutional Vitals: Vital Signs Temp Pulse Resp BP Pulse Ox 98.0 F 69 18 117/62 99 03/23/22 07:45 03/23/22 07:45 03/23/22 07:45 03/23/22 07:45 03/23/22 07:45 Temperature -Last 24 Hours Temperature 98.0 F Temperature 98.3 F Temperature 97.5 F Temperature 97.9 F Temperature 98.1 F Temperature 97.8 F - Labs CBC & Chem 7: 03/21/22 05:47 03/21/22 05:47 Labs: Abnormal lab results 03/22/22 03/22/22 03/22/22 Range/Units 12:17 16:25 21:12 POC Glucose 157 H 202 H 203 H (70-105) mg/dL 03/23/22 Range/Units 07:25 POC Glucose 107 H (70-105) mg/dL
[2022-03-23] MEDS: INSULIN REGULAR, HUMAN 100 UNITS/1 ML SUB-Q SCH ×4 (09:37→21:37)
--- NOTE | 2022-03-23 09:37 | Progress Note ---
Assessment and Plan - Patient Problems (1) Acute kidney injury superimposed on chronic kidney disease Current Visit: Yes Status: Acute Plan to address problem: Overall renal function remained stable at present time. Continue to avoid nephrotoxins and maintain mean arterial pressures above 65 mmHg. We will continue to monitor closely at this time. (2) Acute exacerbation of congestive heart failure Current Visit: Yes Status: Acute Qualifiers: Heart failure type: combined systolic and diastolic Qualified Code(s): I50.43 - Acute on chronic combined systolic (congestive) and diastolic (congestive) heart failure Plan to address problem: Transition to oral torsemide regimen with adequate urine output noted. Respiratory status is also starting to show improvement as her oxygen requirements have started to decrease. Cardiology evaluation and recommendations reviewed. Counseled on appropriate fluid and sodium restriction. (3) Acute respiratory failure with hypoxia Current Visit: Yes Status: Acute Plan to address problem: Pulmonology recommendations reviewed. Oxygen requirements are starting to decrease. She remains on IV steroids which likely is also contributing to her elevated BUN levels. She does not have any symptoms concerning for uremia at present time therefore there is no need for renal replacement therapy. (4) Hypertensive chronic kidney disease with stage 1 through stage 4 chronic kidney disease, or unspecified chronic kidney disease Current Visit: Yes Status: Chronic Plan to address problem: Continue to monitor patient's blood pressures on current regimen. (5) Urinary tract infection due to ESBL Klebsiella Current Visit: Yes Status: Acute Plan to address problem: Patient has completed course of antibiotics. Asymptomatic at present time. Subjective Date of service: 03/23/22 Principal diagnosis: Hypoxic respiratory failure Interval history: No acute changes. Objective - Vital Signs Vital signs: Vital Signs - 12hr 03/22/22 03/22/22 03/22/22 22:00 23:17 23:29 Temperature 97.5 F L Pulse Rate 80 85 77 Pulse Rate [ 80 From Monitor] Respiratory 17 20 22 Rate Blood Pressure 101/50 O2 Sat by Pulse 98 94 98 Oximetry 03/23/22 03/23/22 03/23/22 02:00 04:09 07:45 Temperature 98.3 F 98.0 F Pulse Rate 80 72 69 Pulse Rate [ From Monitor] Respiratory 20 19 18 Rate Blood Pressure 104/53 117/62 O2 Sat by Pulse 99 92 99 Oximetry - General Appearance General appearance: well-developed EENT: ATNC Neck: no JVD, no thyromegaly Respiratory: Present: Clear to Ascultation Cardiology: regular Gastrointestinal: normal, normoactive bowel sounds Integumentary: no rash, warm and dry Neurologic: no focal deficit, alert and oriented x3 Musculoskeletal: deferred Psychiatric: cooperative - Lab 03/21/22 05:47 03/21/22 05:47 Most recent lab results ABG pH 7.316 pH Units (7.350-7.450) L 03/11/22 10:35 ABG pCO2 54.7 mm Hg 03/11/22 10:35 ABG pO2 81.0 mm Hg (80.0-90.0) 03/11/22 10:35 ABG HCO3 27.3 mmol/L (20.0-26.0) H 03/11/22 10:35 ABG O2 Saturation 95.0 % (95.0-99.0) 03/11/22 10:35 Calcium 8.9 mg/dL (8.4-10.2) 03/21/22 05:47 Urine Creatinine 41.2 mg/dL (0.1-20.0) H 03/04/22 17:35 Urine Sodium 126 mmol/L 03/04/22 17:35 Urine Total Protein 16 mg/dL (5-11.8) H 03/04/22 17:35 - Imaging Chest x-ray: pending - Allied health notes Allied health notes reviewed: nursing Medications & Allergies - Medications Allergies/Adverse Reactions: Allergies iodine Allergy (Verified 03/03/22 12:49) Anaphylaxis Penicillins Allergy (Verified 03/03/22 12:49) Anaphylaxis shellfish derived Allergy (Verified 03/03/22 12:49) Anaphylaxis Home Medications: Home Medications Medication Instructions Recorded Confirmed Last Taken Type Acetaminophen [Non-Aspirin Extra 500 mg PO Q8HR PRN 03/04/22 03/04/22 03/01/22 History Strength] Aspirin EC 325 mg PO 4XW 03/04/22 03/04/22 03/02/22 History Hydrocodone-Acetamin 2.5-325 5 - 325 mg PO Q6HR PRN 03/04/22 03/04/22 03/02/22 History Mucus Relief ER 600 mg PO BID 03/04/22 03/05/22 03/02/22 History Omeprazole 40 mg PO DAILY 03/04/22 03/05/22 03/02/22 History Phenazopyridine 200 mg PO TID 03/04/22 03/04/22 03/03/22 History Senna Plus Tablet 8.6 - 50 mg PO BID MDD CONSTIPATION 03/04/22 03/05/22 03/02/22 History Diclofenac Sodium ER 75 mg PO Q8HR 03/05/22 03/05/22 03/02/22 History Nifedipine ER 60 mg PO DAILY 03/05/22 03/05/22 03/02/22 History Vitamin D3 25 mg PO DAILY 03/05/22 03/05/22 03/02/22 History Active Medications: Generic Name Dose Route Start Last Admin Trade Name Freq PRN Reason Stop Dose Admin Acetaminophen 650 mg 03/03/22 20:28 03/15/22 09:14 Acetaminophen 325 Mg Tab PO 650 mg Q4H PRN Administration Pain MILD(1-3)/Fever >100.5/HOFFMAN Cetirizine HCl 10 mg 03/12/22 15:00 03/22/22 10:41 Cetirizine 10 Mg Tab PO 10 mg QDAY VERN Administration Dextrose 50 ml 03/20/22 09:46 Dextrose 50% In Water (25gm) 50 Ml Syringe IV Q30MIN PRN Hypoglycemia Protocol Fluticasone Propionate 200 mcg 03/13/22 20:00 03/22/22 10:42 Fluticasone Propionate Nasal [place] 16 Gm NS 200 mcg QDAY VERN Administration Gabapentin 300 mg 03/22/22 22:00 03/22/22 22:14 Gabapentin 300 Mg Cap PO 300 mg BID VERN Administration Guaifenesin 600 mg 03/12/22 15:00 03/22/22 22:14 Guaifenesin Er 600 Mg Tab PO 600 mg BID VERN Administration Heparin Sodium (Porcine) 7,500 unit 03/16/22 14:00 03/23/22 05:10 Heparin 5,000 Unit/1 Ml Vial SUB-Q 7,500 unit Q8HR VERN Administration Ceftriaxone Sodium 2 gm in 100 mls @ 200 mls/hr 03/23/22 10:00 Rocephin/Ns 2 Gm/100 Ml IV Q24H VERN Protocol Insulin Human Isoph/Insulin Regular 15 unit 03/20/22 22:00 03/22/22 22:14 Insulin Nph/Regular 70/30 Inj SUB-Q 15 unit BID VERN Administration Insulin Human Regular 0 units 03/20/22 11:30 03/22/22 22:14 Insulin Regular, Human 100 Units/1 Ml SUB-Q 3 units ACHS VERN Administration Protocol Melatonin 5 mg 03/22/22 22:00 Melatonin 5 Mg Tab PO QHS PRN Sleep Methylprednisolone Sodium Succinate 60 mg 03/23/22 10:00 Methylprednisolone Sod Succinate 125 Mg/2 Ml Inj IV Q24HR VERN Metoclopramide HCl 5 mg 03/11/22 12:00 Metoclopramide 10 Mg/2 Ml Inj IV Q6H PRN Nausea And Vomiting Morphine Sulfate 2 mg 03/03/22 20:28 Morphine 2 Mg/1 Ml Inj IV Q4H PRN Pain, Moderate (4-6) Ondansetron HCl 4 mg 03/03/22 20:28 Ondansetron 4 Mg/2 Ml Inj IV Q8H PRN Nausea And Vomiting Oxycodone/Acetaminophen 1 tab 03/03/22 20:28 03/09/22 12:06 Oxycodone /Acetaminophen 5-325mg Tab PO 1 tab Q6H PRN Administration Pain, Moderate (4-6) Pantoprazole Sodium 40 mg 03/12/22 15:00 03/22/22 06:31 Pantoprazole 40 Mg Tab PO 40 mg QDAC VERN Administration Polyethylene Glycol 17 gm 03/16/22 10:00 03/22/22 10:42 Polyethylene Glycol 3350 17 Gm Powder PO Not Given QDAY VERN Senna/Docusate Sodium 2 tab 03/06/22 11:00 03/22/22 22:15 Sennosides/Docusate Sodium 8.6/50 Mg Tab PO Not Given Q12H VERN Sildenafil Citrate 20 mg 03/11/22 14:00 03/22/22 22:14 Sildenafil 20 Mg Tab PO 20 mg TID VERN Administration Sodium Chloride 10 ml 03/03/22 22:00 03/22/22 22:15 Sodium Chloride 0.9% 10 Ml Flush Syringe IV 10 ml BID VERN Administration Sodium Chloride 10 ml 03/03/22 20:28 Sodium Chloride 0.9% 10 Ml Flush Syringe IV PRN PRN LINE FLUSH Torsemide 40 mg 03/17/22 10:00 03/22/22 10:41 Torsemide 10 Mg Tab PO 40 mg DAILY VERN Administration Zolpidem Tartrate 5 mg 03/22/22 22:00 Zolpidem 5 Mg Tab PO QHS PRN Sleep
[2022-03-23] MEDS: GABAPENTIN 300 MG CAP PO SCH ×2 (09:46→21:07)
[2022-03-23] MEDS: PANTOPRAZOLE 40 MG TAB PO SCH (09:46)
[2022-03-23] MEDS: CETIRIZINE 10 MG TAB PO SCH (09:46)
[2022-03-23] MEDS: methylPREDNISolone Sod Succinate 125 MG/2 ML INJ IV SCH (09:46)
[2022-03-23] MEDS: guaiFENesin ER 600 MG TAB PO SCH ×2 (09:46→22:13)
[2022-03-23] MEDS: SILDENAFIL 20 MG TAB PO SCH ×3 (09:47→20:56)
[2022-03-23] MEDS: FLUTICASONE PROPIONATE NASAL SPRAY 16 GM NS SCH (09:47)
[2022-03-23] MEDS: POLYETHYLENE GLYCOL 3350 17 GM POWDER PO SCH (09:47)
[2022-03-23] MEDS: TORSEMIDE 10 MG TAB PO SCH (09:47)
[2022-03-23] MEDS: INSULIN NPH/REGULAR 70/30 INJ SUB-Q SCH ×2 (09:50→21:09)
[2022-03-23 13:14] LABS: Hematocrit 46.9 % (30.3-42.9); Hemoglobin 14.9 gm/dl (10.1-14.3); Mean Corpuscular HGB Conc 32 % (30-34); Mean Corpuscular Volume 90 fl (79-97); Platelet Count 158 K/mm3 (140-440); Red Blood Count 5.23 M/mm3 (3.65-5.03); Red Cell Distribution Width 15.8 % (13.2-15.2)
--- NOTE | 2022-03-23 13:33 | Progress Note ---
Assessment and Plan Assessment and plan: #Severe pulmonary arterial hypertension #Acute on chronic hypoxic respiratory failure-improving - baseline oxygen requirements: 5 L nasal cannula - supplemental oxygen: NC @ 5LPM, will wean as tolerated Pulmonology following; assistance appreciated - Continue protocol: continue pulse oximetry, wean oxygen as tolerated, ordered incentive spirometry and educated patient on how to use it and its importance - Unremarkable LE dopplers. V/Q scan low probability for PE - CTA of the chest: intersitial edema and central pulmonary arterial enlargement suggest of PAH - continue IV steroids; may benefit from R + L heart cath for further evaluation outpatient as patient may likely be discharged soon - continue sildenafil and steroids #Left heel ulcer Concern for chronic osteomyelitis General surgery and Vascular surgery following; appreciate recs; possible intervention on Monday - culture growing GNRs and james walshhin started -Pulmonology advises against general anesthesia for possible surgical intervention, supportive care at this time #Acute on chronic diastolic heart failureresolved #Cor pulmonale - Continue CHF exacerbation protocol: Telemetry, Strict I/O, monitor urine output every shift, daily weights, afterload reduction, low-sodium diet, and fluid restriction of approximately 1.5 mL/day - continue PO diuretics - ProBNP on admission: 11,875 - Cardiology following; appreciate recs - TTE (03/04/2022) revealing EF 50-55% with normal-sized LV, lower limits of normal LV systolic function, borderline concentric LVH, severely dilated RV, severely reduced RV systolic function, mildly dilated LA, severely dilated RA, RVSP >95 mmHg, and severe pulmonary hypertension. -continue PO torsemide #Leukocytosis - WBC 19, patient afebrile, only has chronic L foot ulcer - likely secondary to demarginalization in setting of steroid administration -continue ABX as above #ESBL UTI/cystitis without hematuriaresolved Urinalysis revealing large leukocyte esterase, WBC 11, 1+ bacteria, few budding yeast. - s/p Macrobid and ertapenem x3 doses started per ID recs Continue precautions #Atypical chest painruled out Negative troponin x2 Likely secondary to volume overload in the setting of acute heart failure. #RIN on CKD stage IIIstable SCr 2.6 Renally dose meds and avoid nephrotoxic drugs Nephrology following; appreciate recs #Mild protein caloric malnutrition Albumin 3.4 Continue dietary supplementation #Morbid obesity #Weight loss counseling #Exercise counseling - BMI 53.1 - Counseled patient on the importance of weight loss, incorporating exercise, and dietary changes (lean meats, fresh fruits and vegetables, and water intake). Patient expresses understanding. - Time: +15 min #Advanced care planning -Disease education conducted, care plan discussed, diagnoses discussed, prognosis discussed, and patient acknowledges understanding with care plan -Time: +30 min #Discharge planning - Patient is pending approval for LTAC, patient with improving O2 requirement, may be discharged home once she reaches home O2 level vs subacute rehab - Case management has been made aware. History Interval history: No acute events overnight. Patient stable on 5 L nasal cannula. She was updated on current care plan, patient agreeable. Hospitalist Physical - Physical exam Narrative exam: GENERAL: Obese woman. In no acute distress. HEENT: Nasal cannula 7 L/min. CHEST/LUNGS: Prolonged expiratory phase, otherwise CTAB. HEART/CARDIOVASCULAR: RRR. No murmur, rubs or gallops appreciated. ABDOMEN: +BS. NT/ND. NEURO: No focal motor deficit. Follows all commands. MUSCULOSKELETAL: No joint effusion EXTREMITIES: BLE chronic venous stasis changes. No clubbing or edema. Left lower extremity ulcer at heel without drainage. PSYCH: Cooperative. - Constitutional Vitals: Temp Pulse Resp BP Pulse Ox 98.0 F 84 18 127/53 94 03/23/22 11:53 03/23/22 11:53 03/23/22 11:53 03/23/22 11:53 03/23/22 11:53 General appearance: Present: no acute distress, obese HEART Score - HEART Score Age: > 65 Risk factors: 1-2 risk factors Troponin: Troponin T < 0.010 ng/mL (0.00-0.029) 03/03/22 13:34 Troponin: < normal limit - Critical Actions Critical Actions: 4-6 pts:12-16.6% risk of adverse cardiac event. Should be admitted Results - Labs CBC & Chem 7: 03/23/22 12:02 03/21/22 05:47 Labs: Laboratory Last Values WBC 19.9 K/mm3 (4.5-11.0) H 03/23/22 12:02 RBC 5.23 M/mm3 (3.65-5.03) H 03/23/22 12:02 Hgb 14.9 gm/dl (10.1-14.3) H 03/23/22 12:02 Hct 46.9 % (30.3-42.9) H 03/23/22 12:02 MCV 90 fl (79-97) 03/23/22 12:02 MCH 29 pg (28-32) 03/23/22 12:02 MCHC 32 % (30-34) 03/23/22 12:02 RDW 15.8 % (13.2-15.2) H 03/23/22 12:02 Plt Count 158 K/mm3 (140-440) 03/23/22 12:02 Lymph % (Auto) 12.2 % (13.4-35.0) L 03/08/22 09:44 Day % (Auto) 4.6 % (0.0-7.3) 03/08/22 09:44 Eos % (Auto) 3.0 % (0.0-4.3) 03/08/22 09:44 Baso % (Auto) 0.7 % (0.0-1.8) 03/08/22 09:44 Lymph # (Auto) 0.9 K/mm3 (1.2-5.4) L 03/08/22 09:44 Day # (Auto) 0.4 K/mm3 (0.0-0.8) 03/08/22 09:44 Eos # (Auto) 0.2 K/mm3 (0.0-0.4) 03/08/22 09:44 Baso # (Auto) 0.1 K/mm3 (0.0-0.1) 03/08/22 09:44 Add Manual Diff Complete 03/21/22 05:47 Total Counted 100 03/21/22 05:47 Seg Neutrophils % Equal Employment Opportunity Officer 03/21/22 05:47 Seg Neuts % (Manual) 94.0 % (40.0-70.0) H 03/21/22 05:47 Band Neutrophils % 0 % 03/21/22 05:47 Lymphocytes % (Manual) 3.0 % (13.4-35.0) L 03/21/22 05:47 Reactive Lymphs % (Man) 0 % 03/21/22 05:47 Monocytes % (Manual) 2.0 % (0.0-7.3) 03/21/22 05:47 Eosinophils % (Manual) 1.0 % (0.0-4.3) 03/21/22 05:47 Basophils % (Manual) 0 % (0.0-1.8) 03/21/22 05:47 Metamyelocytes % 0 % 03/21/22 05:47 Myelocytes % 0 % 03/21/22 05:47 Promyelocytes % 0 % 03/21/22 05:47 Blast Cells % 0 % 03/21/22 05:47 Nucleated RBC % Not Reportable 03/21/22 05:47 Seg Neutrophils # 6.0 K/mm3 (1.8-7.7) 03/08/22 09:44 Seg Neutrophils # Man 19.6 K/mm3 (1.8-7.7) H 03/21/22 05:47 Band Neutrophils # 0.0 K/mm3 03/21/22 05:47 Lymphocytes # (Manual) 0.6 K/mm3 (1.2-5.4) L 03/21/22 05:47 Abs React Lymphs (Man) 0.0 K/mm3 03/21/22 05:47 Monocytes # (Manual) 0.4 K/mm3 (0.0-0.8) 03/21/22 05:47 Eosinophils # (Manual) 0.2 K/mm3 (0.0-0.4) 03/21/22 05:47 Basophils # (Manual) 0.0 K/mm3 (0.0-0.1) 03/21/22 05:47 Metamyelocytes # 0.0 K/mm3 03/21/22 05:47 Myelocytes # 0.0 K/mm3 03/21/22 05:47 Promyelocytes # 0.0 K/mm3 03/21/22 05:47 Blast Cells # 0.0 K/mm3 03/21/22 05:47 WBC Morphology Not Reportable 03/21/22 05:47 Hypersegmented Neuts Not Reportable 03/21/22 05:47 Hyposegmented Neuts Not Reportable 03/21/22 05:47 Hypogranular Neuts Not Reportable 03/21/22 05:47 Smudge Cells Not Reportable 03/21/22 05:47 Toxic Granulation Not Reportable 03/21/22 05:47 Toxic Vacuolation Not Reportable 03/21/22 05:47 Dohle Bodies Not Reportable 03/21/22 05:47 Pelger-Huet Anomaly Not Reportable 03/21/22 05:47 Neptali Rods Not Reportable 03/21/22 05:47 Platelet Estimate Consistent w auto 03/21/22 05:47 Clumped Platelets Not Reportable 03/21/22 05:47 Plt Clumps, EDTA Not Reportable 03/21/22 05:47 Large Platelets Not Reportable 03/21/22 05:47 Giant Platelets Not Reportable 03/21/22 05:47 Platelet Satelliting Not Reportable 03/21/22 05:47 Plt Morphology Comment Not Reportable 03/21/22 05:47 RBC Morphology Not Reportable 03/21/22 05:47 Dimorphic RBCs Not Reportable 03/21/22 05:47 Polychromasia Not Reportable 03/21/22 05:47 Hypochromasia Not Reportable 03/21/22 05:47 Poikilocytosis Not Reportable 03/21/22 05:47 Anisocytosis Not Reportable 03/21/22 05:47 Microcytosis Not Reportable 03/21/22 05:47 Macrocytosis Not Reportable 03/21/22 05:47 Spherocytes Not Reportable 03/21/22 05:47 Pappenheimer Bodies Not Reportable 03/21/22 05:47 Sickle Cells Not Reportable 03/21/22 05:47 Target Cells Rare 03/21/22 05:47 Tear Drop Cells Not Reportable 03/21/22 05:47 Ovalocytes Not Reportable 03/21/22 05:47 Helmet Cells Not Reportable 03/21/22 05:47 Baeza-Brandon Bodies Not Reportable 03/21/22 05:47 [place] Rings Not Reportable 03/21/22 05:47 [place] Cells Not Reportable 03/21/22 05:47 Bite Cells Not Reportable 03/21/22 05:47 Crenated Cell Not Reportable 03/21/22 05:47 Elliptocytes Not Reportable 03/21/22 05:47 Acanthocytes (Spur) Not Reportable 03/21/22 05:47 Rouleaux Not Reportable 03/21/22 05:47 Hemoglobin C Crystals Not Reportable 03/21/22 05:47 Schistocytes Not Reportable 03/21/22 05:47 Malaria parasites Not Reportable 03/21/22 05:47 Juancarlos Bodies Not Reportable 03/21/22 05:47 Hem Pathologist Commnt No 03/21/22 05:47 ABG pH 7.316 pH Units (7.350-7.450) L 03/11/22 10:35 ABG pCO2 54.7 mm Hg 03/11/22 10:35 ABG pO2 81.0 mm Hg (80.0-90.0) 03/11/22 10:35 ABG HCO3 27.3 mmol/L (20.0-26.0) H 03/11/22 10:35 ABG O2 Saturation 95.0 % (95.0-99.0) 03/11/22 10:35 ABG O2 Content 18.1 (0.0-44) 03/11/22 10:35 ABG Base Excess 0.2 mmol/L (-2.0-3.0) 03/11/22 10:35 ABG Hemoglobin 13.7 gm/dl (12.0-16.0) 03/11/22 10:35 ABG Carboxyhemoglobin 0.7 % (0.0-5.0) 03/11/22 10:35 ABG Methemoglobin 0.4 % (0.0-1.5) 03/11/22 10:35 Oxyhemoglobin 94.0 % (95.0-99.0) L 03/11/22 10:35 FiO2 90 % 03/11/22 10:35 Sodium 140 mmol/L (137-145) 03/21/22 05:47 Potassium 4.5 mmol/L (3.6-5.0) 03/21/22 05:47 Chloride 99.3 mmol/L (98-107) 03/21/22 05:47 Carbon Dioxide 28 mmol/L (22-30) 03/21/22 05:47 Anion Gap 17 mmol/L 03/21/22 05:47 BUN 140 mg/dL (7-17) H 03/21/22 05:47 Creatinine 2.6 mg/dL (0.6-1.2) H 03/21/22 05:47 Estimated GFR 22 ml/min 03/21/22 05:47 BUN/Creatinine Ratio 54 % 03/21/22 05:47 Glucose 136 mg/dL (65-100) H 03/21/22 05:47 POC Glucose 162 mg/dL (70-105) H 03/23/22 11:39 Calcium 8.9 mg/dL (8.4-10.2) 03/21/22 05:47 Total Bilirubin 0.60 mg/dL (0.1-1.2) 03/04/22 02:51 AST 12 units/L (5-40) 03/04/22 02:51 ALT 6 units/L (7-56) L 03/04/22 02:51 Alkaline Phosphatase 91 units/L (35-129) 03/04/22 02:51 Troponin T < 0.010 ng/mL (0.00-0.029) 03/03/22 13:34 NT-Pro-B Natriuret Pep 59559 pg/mL (0-900) H 03/03/22 13:34 Total Protein 8.4 g/dL (6.3-8.2) H 03/04/22 02:51 Albumin 3.4 g/dL (3.9-5) L 03/04/22 02:51 Albumin/Globulin Ratio 0.7 % 03/04/22 02:51 Urine Color Yellow (Yellow) 03/04/22 17:35 Urine Turbidity Slightly-cloudy (Clear) 03/04/22 17:35 Urine pH 6.0 (5.0-7.0) 03/04/22 17:35 Ur Specific [place] 1.008 (1.003-1.030) 03/04/22 17:35 Urine Protein <15 mg/dl mg/dL (Negative) 03/04/22 17:35 Urine Glucose (UA) Neg mg/dL (Negative) 03/04/22 17:35 Urine Ketones Neg mg/dL (Negative) 03/04/22 17:35 Urine Blood Mod (Negative) 03/04/22 17:35 Urine Nitrite Neg (Negative) 03/04/22 17:35 Urine Bilirubin Neg (Negative) 03/04/22 17:35 Urine Urobilinogen < 2.0 mg/dL (<2.0) 03/04/22 17:35 Ur Leukocyte Esterase Lg (Negative) 03/04/22 17:35 Urine WBC (Auto) 11.0 /HPF (0.0-6.0) H 03/04/22 17:35 Urine RBC (Auto) 2.0 /HPF (0.0-6.0) 03/04/22 17:35 U Epithel Cells (Auto) 1.0 /HPF (0-13.0) 03/04/22 17:35 Urine Bacteria (Auto) 1+ /HPF (Negative) 03/04/22 17:35 Urine Mucus Few /HPF 03/04/22 17:35 Urine Yeast (Budding) Few /HPF 03/04/22 17:35 Urine Creatinine 41.2 mg/dL (0.1-20.0) H 03/04/22 17:35 Urine Sodium 126 mmol/L 03/04/22 17:35 Urine Total Protein 16 mg/dL (5-11.8) H 03/04/22 17:35 Coronavirus (PCR) Negative (Negative) 03/04/22 09:57 Gale/IV: Voiding Method External Female Catheter Active Medications - Current Medications Current Medications: Generic Name Dose Route Start Last Admin Trade Name Freq PRN Reason Stop Dose Admin Acetaminophen 650 mg 03/03/22 20:28 03/15/22 09:14 Acetaminophen 325 Mg Tab PO 650 mg Q4H PRN Administration Pain MILD(1-3)/Fever >100.5/[place]OFF[place] Cetirizine HCl 10 mg 03/12/22 15:00 03/23/22 09:46 Cetirizine 10 Mg Tab PO 10 mg QDAY VERN Administration Dextrose 50 ml 03/20/22 09:46 Dextrose 50% In Water (25gm) 50 Ml Syringe IV Q30MIN PRN Hypoglycemia Protocol Fluticasone Propionate 200 mcg 03/13/22 20:00 03/23/22 09:47 Fluticasone Propionate Nasal [place] 16 Gm NS 200 mcg QDAY VERN Administration Gabapentin 300 mg 03/22/22 22:00 03/23/22 09:46 Gabapentin 300 Mg Cap PO 300 mg BID VERN Administration Guaifenesin 600 mg 03/12/22 15:00 03/23/22 09:46 Guaifenesin Er 600 Mg Tab PO 600 mg BID VERN Administration Heparin Sodium (Porcine) 7,500 unit 03/16/22 14:00 03/23/22 05:10 Heparin 5,000 Unit/1 Ml Vial SUB-Q 7,500 unit Q8HR VERN Administration Ceftriaxone Sodium 2 gm in 100 mls @ 200 mls/hr 03/23/22 10:00 Rocephin/Ns 2 Gm/100 Ml IV Q24H [facility] Protocol Insulin Human Isoph/Insulin Regular 15 unit 03/20/22 22:00 03/22/22 22:14 Insulin Nph/Regular 70/30 Inj SUB-Q 15 unit BID VERN Administration Insulin Human Regular 0 units 03/20/22 11:30 03/23/22 09:37 Insulin Regular, Human 100 Units/1 Ml SUB-Q Not Given ACHS [facility] Protocol Melatonin 5 mg 03/22/22 22:00 Melatonin 5 Mg Tab PO QHS PRN Sleep Methylprednisolone Sodium Succinate 60 mg 03/23/22 10:00 03/23/22 09:46 Methylprednisolone Sod Succinate 125 Mg/2 Ml Inj IV 60 mg Q24HR VERN Administration Metoclopramide HCl 5 mg 03/11/22 12:00 Metoclopramide 10 Mg/2 Ml Inj IV Q6H PRN Nausea And Vomiting Morphine Sulfate 2 mg 03/03/22 20:28 Morphine 2 Mg/1 Ml Inj IV Q4H PRN Pain, Moderate (4-6) Ondansetron HCl 4 mg 03/03/22 20:28 Ondansetron 4 Mg/2 Ml Inj IV Q8H PRN Nausea And Vomiting Oxycodone/Acetaminophen 1 tab 03/03/22 20:28 03/09/22 12:06 Oxycodone /Acetaminophen 5-325mg Tab PO 1 tab Q6H PRN Administration Pain, Moderate (4-6) Pantoprazole Sodium 40 mg 03/12/22 15:00 03/23/22 09:46 Pantoprazole 40 Mg Tab PO 40 mg QDAC VERN Administration Polyethylene Glycol 17 gm 03/16/22 10:00 03/23/22 09:47 Polyethylene Glycol 3350 17 Gm Powder PO Not Given QDAY VERN Senna/Docusate Sodium 2 tab 03/06/22 11:00 03/22/22 22:15 Sennosides/Docusate Sodium 8.6/50 Mg Tab PO Not Given Q12H VERN Sildenafil Citrate 20 mg 03/11/22 14:00 03/23/22 09:47 Sildenafil 20 Mg Tab PO 20 mg TID VERN Administration Sodium Chloride 10 ml 03/03/22 22:00 03/23/22 09:46 Sodium Chloride 0.9% 10 Ml Flush Syringe IV 10 ml BID VERN Administration Sodium Chloride 10 ml 03/03/22 20:28 Sodium Chloride 0.9% 10 Ml Flush Syringe IV PRN PRN LINE FLUSH Torsemide 40 mg 03/17/22 10:00 03/23/22 09:47 Torsemide 10 Mg Tab PO 40 mg DAILY VERN Administration Zolpidem Tartrate 5 mg 03/22/22 22:00 Zolpidem 5 Mg Tab PO QHS PRN Sleep Nutrition/Malnutrition Assess - Dietary Evaluation Nutrition/Malnutrition Findings: Nutrition Notes Start: 03/11/22 14:05 Freq: Status: Active Protocol: Document 03/11/22 14:05 RAOUL (Rec: 03/11/22 14:21 RAOUL [id number]) Nutrition Notes Need for Assessment generated from: LOS Initial or Follow up Assessment Current Diagnosis Acute Kidney Injury,CKD(stage I-IV),Respiratory Failure, Malnutrition Other Pertinent Diagnosis HFpEF, Cor Pulmonale, UTI, Cystitis. Current Diet Cardiac -Renal- Diet (from D 03/11). Labs/Tests 03/11: BUN 108, Crea 2.5, Glu 141. Pertinent Medications 03/11: Nutritionally unremarkable. Height 5 ft 3 in Weight 134.7 kg [place] Body Weight (kg) 52.27 BMI 52.6 Intake Prior to Admission Good Weight change and time frame Pt denies having loss body weight [employer]SUM[employer] SCI[employer] TE[employer]ER. Weight Status Morbidly Obese Subjective/Other Information RD consult for LOS assessment. Pt's PO intake of meals has been Good (>75%) but fairly tolerated, according to ADL notes. I will prescribe renal modification to current diet to support Pt's RIN/CKD condition during LOS. Pt is on High-Flow Nasal Cannula, O2 saturation @ 96%, according to Physical Assessment History notes. Pt presents an > as signs of concern for skin risk at this time, according to Physical Assessment History notes. Percent of energy/protein needs met: Prescribed Cardiac -Renal- Diet provides for energy/ protein needs (2,230 Kcal/85 g ) during LOS. Burn Absent Trauma Absent GI Symptoms None Food Allergy Yes Skin Integrity/Comment Unspecified dryness and flakiness. Current % PO Good (75-100%) Minimum of two criteria No Fluid Accumulation N/A Reduced [facility] Owner Strength N/A (non-severe) Protein-Calorie Malnutrition N\A #1 Nutrition Diagnosis Altered nutrition-related laboratory values Etiology RIN/CKD III. As Evidenced by Signs and Symptoms 07/22: BUN 108, Crea 2.5. Is patient on ventilator? No Is Patient Ambulatory and/or Out of Bed Yes REE-([place]-St. Jeor-ambulatory/OOB) [ 5376.969 [id number]] Kcal/Kg value to use for calculation 10 Approximate Energy Requirements Using 1347 kcal/Kg Calculation Used for Recommendations Kcal/kg Additional Notes Protein: 0.6-0.8 g/Kg AdjBW; 56-75 g/day. Fluids: 1 ml/Kcal, or as per MD. Nutrition Intervention Change Diet Order: Modify to Cardiac -Renal- Diet . Goal #1 Adjust the dietary intervention to better serve Pt's needs and clinical conditions during LOS. Additional Comments Continue monitoring food tolerance, %PO intake of meals , and BM.
--- NOTE | 2022-03-23 14:00 | Progress Note ---
Assessment and Plan - Patient Problems (1) Interstitial edema Current Visit: Yes Status: Acute Plan to address problem: 71-year-old woman with morbid obesity, obstructive sleep apnea, hypertension, presents with shortness of breath and chest x-ray evidence of mild to moderate interstitial edema. Previous invasive cardiac work-up 10 years ago showed no significant coronary artery disease. Prior left ventricular systolic function assessment was well-preserved at 50%. Echocardiogram on this presentation demonstrates well-preserved left ventricular systolic function. Major finding on the echocardiogram is the presence of severe cor pulmonale with dilated right heart chambers, moderate to severe tricuspid regurgitation and severe pulmonary hypertension with pulmonary artery systolic pressures approaching systemic levels. Chronic lung disease appears to be primary etiology for dyspnea, respiratory insufficiency and hypoxemia. Subjective Date of service: 03/23/22 Principal diagnosis: Hypoxic respiratory failure Interval history: Patient is comfortable, no cardiac complaints, no new cardiac events reported. Patient is on nasal oxygen. On cross cut sawyer, there is a stable sinus rhythm. Objective Vital Signs Temp Pulse Pulse Resp BP BP Pulse Ox 03/23/22 11:53 98.0 F 84 18 127/53 94 03/23/22 10:00 63 97 03/23/22 08:50 97 03/23/22 07:45 98.0 F 69 18 117/62 99 03/23/22 04:09 98.3 F 72 19 104/53 92 03/23/22 02:00 80 20 99 03/22/22 23:29 77 22 98 03/22/22 23:17 97.5 F L 85 20 101/50 94 03/22/22 22:00 80 80 17 98 03/22/22 21:13 97.9 F 78 20 118/54 96 03/22/22 20:00 95 03/22/22 15:26 98.1 F 71 18 94/54 92 03/22/22 14:22 97.8 F 86 20 124/79 95 03/22/22 14:00 95 - Physical Examination General: No Apparent Distress, Other (obesity) HEENT: Positive: PERRL Neck: Positive: neck supple Cardiac: Positive: Reg Rate and Rhythm Lungs: Positive: Decreased Breath Sounds Neuro: Positive: Grossly Intact Abdomen: Positive: Soft Skin: Positive: Clear Extremities: Present: edema (Minimal) - Labs and Meds CBC 03/23/22 Range/Units 12:02 WBC 19.9 H (4.5-11.0) K/mm3 RBC 5.23 H (3.65-5.03) M/mm3 Hgb 14.9 H (10.1-14.3) gm/dl Hct 46.9 H (30.3-42.9) % Plt Count 158 (140-440) K/mm3 Comprehensive Metabolic Panel 03/23/22 Range/Units 12:02 Sodium 142 (137-145) mmol/L Potassium 4.9 (3.6-5.0) mmol/L Chloride 95.3 L (98-107) mmol/L Carbon Dioxide 27 (22-30) mmol/L Creatinine 2.9 H (0.6-1.2) mg/dL Glucose 162 H (65-100) mg/dL Calcium 9.0 (8.4-10.2) mg/dL - Imaging and Cardiology EKG: report reviewed (Sinus tachycardia no acute ST-T wave changes) - Allied health notes Allied health notes reviewed: nursing
[2022-03-23] MEDS: SENNOSIDES/DOCUSATE SODIUM 8.6/50 MG TAB PO SCH ×2 (17:02→22:13)
[2022-03-23] MEDS: cefTRIAXone/NS 2 GM/100 ML 2 GM/100 ML BAG IV SCH (17:03)
--- NOTE | 2022-03-23 18:18 | Progress Note ---
Assessment and Plan 71 y/o female with severe pulm htn and Eliseo with acute on chronic respiratory failure. 03/23/22: 5 liters is patients prior oxygen baseline. Will need prolonged steroid taper and suggest the followin daily for 5 days, 40 daily for 5 days, 20 daily for 5 days and then 10mg daily indefinitely until she can follow up with either us or her PCP. Still would benefit from RHC but doubt this will happen prior to discharge. Will continue to follow. 03/22/22: Dropped steroids to daily today. Continue sildenafil. Patient still needs RHC, most likely this would have to happen as an outpatient. She is not a candidate for surgery given her degree of Pulm HTN. I do not recommend general anesthesia for her at this time. Especially without a right heart cath knowing what her true numbers are. If able to get to her baseline flow, hopeful discharge soon. 03/21/22: Continue to wean for sats >88%. If not mistaken, baseline flow at home was 5. Continue sildenafil. Will drop steroids tomorrow. 03/20/22: H/H was stable. continue sildenafil. Continue to wean FiO2 as tolerated. Still needs RHC. Overall prognosis is guarded to poor. Will consider decreasing steroids tomorrow if she can maintain on 7 liters. 03/18/22: consider checking CBC with diff. Continue Sildenafil for now. Needs RHC to assess if true Type 1 Pulm HTN. Overall prognosis is guarded to poor. 03/17/22: Given increase in O2 requirement, will hold on dropping steroids today. Otherwise, same recs as the day before. 03/16/22: Will drop steroids to daily starting tomorrow. Continue TID Sildenafil. Reviewed Social work note. There is no debate about therapy. The only safe thing that can be administered at this time is sildenafil three times daily which she is tolerating. No further therapy would be started without RHC number. I reviewed a CM note from 2 days prior that states [facility] would be willing to accept what is documented as 30 liters of flow. Patient is now on 20. Would continue daily net negative state as long as blood pressure and renal function will allow. Continue to wean FiO2 as tolerated for sats >88% 03/15/22: Decreased steroids to BID. Continue Sildenafil at current dosing. Continue daily net negative state if possible and wean FiO2 for sats >88%. Still feel patient would benefit from right and left heart cath if able to be weaned off HFNC and able to lie flat. 03/09/22: Without an exact cause for her Pulm HTN, would be difficult to say if there is anything else that could be done for her severe pulm HTN. If this is truly worsening of lung disease, given the rate that it has happened, even treat ment of COPD would not improve quality of life significantly. If she has developed type 1 pulmonary HTN, she would need at least 2-3 drug therapy and she may not tolerate this as well given her age and current clinical status. A right and left heart cath would be necessary before determination of this degree of therapy. Do not disagree with hospice referral again. Has been on steroid therapy less than 24 hours. Would continue to see if any benefit. Prognosis still remains guarded. 03/08/22: Last time this patient was seen in our office was 2015. At that time she only had mild COPD. Unable to obtain repeat divina at this time. She did not smoke since being on hospice care and was recently discharged secondary to lack of further decline (although one could argue for it now). Will attempt steroid therapy to see if this improves oxygen requirement, however as stated earlier, patient may benefit from right heart cath with drug study if no improvement on steroids. V/Q done but was not ordered looking for acute PE but more for concern for CTEPH. Guarded prognosis. 03/07/22: No new recs. Will find old office notes today to see the last time we saw this patient. 03/06/22: CXR read by rads suggest unchanged edema. Agree with continued diuresis and fluid restriction. Wean Vent for sats >88%. Continue NIV therapy at night 1. Cardiology following. This degree of Pulm HTN is not seen with just ELISEO alone, especially in someone who is compliant with therapy. Defer to cards but would consider right heart cath if not already done previously 2. Continue bipap therapy at night as well as PRN during the day. Patient does not know her settings for her machine at home and my office did not manipulate these numbers last. Will titrate sat of >88% and comfort 3. Agree with continued diuresis, CXR shows continued vascular congestion, maybe slightly better, maybe 4. Wean FiO2 for sats >88% Subjective Date of service: 03/23/22 Principal diagnosis: Hypoxic respiratory failure Interval history: No acute events. Down to 5 liters now Objective Vital Signs - 12hr 03/23/22 03/23/22 03/23/22 07:45 08:50 10:00 Temperature 98.0 F Pulse Rate 69 63 Respiratory 18 Rate Blood Pressure 117/62 O2 Sat by Pulse 99 97 97 Oximetry 03/23/22 03/23/22 11:53 15:57 Temperature 98.0 F 98.4 F Pulse Rate 84 94 H Respiratory 18 18 Rate Blood Pressure 127/53 120/68 O2 Sat by Pulse 94 93 Oximetry Constitutional: no acute distress, alert, other (obese) Eyes: non-icteric ENT: oropharynx moist Neck: supple, other (obese) Effort: mildly labored Ascultation: Bilateral: diminished breath sounds, rales Percussion: Bilateral: not dull Cardiovascular: regular rate and rhythm (no mrg) Gastrointestinal: normoactive bowel sounds, soft, non-tender, non-distended Integumentary: normal Extremities: no cyanosis, no edema, pink and warm Neurologic: normal mental status, non-focal exam, pupils equal and round Psychiatric: mood appropriate, affect normal CBC and BMP: 03/23/22 12:02 03/23/22 12:02 ABG, PT/INR, D-dimer: ABG ABG pH 7.316 pH Units (7.350-7.450) L 03/11/22 10:35 ABG pCO2 54.7 mm Hg 03/11/22 10:35 ABG pO2 81.0 mm Hg (80.0-90.0) 03/11/22 10:35 ABG O2 Saturation 95.0 % (95.0-99.0) 03/11/22 10:35 Abnormal lab findings: Abnormal Labs 03/03/22 03/03/22 03/03/22 13:34 13:34 13:34 WBC RBC Hgb Hct RDW 16.1 H Lymph % (Auto) 9.7 L Lymph # (Auto) 0.8 L Seg Neutrophils % 84.6 H Seg Neuts % (Manual) Lymphocytes % (Manual) Seg Neutrophils # Man Lymphocytes # (Manual) ABG pH ABG HCO3 Oxyhemoglobin Sodium Potassium Chloride BUN 47 H Creatinine 1.7 H Glucose 101 H POC Glucose ALT NT-Pro-B Natriuret Pep 63819 H Total Protein 9.1 H Albumin 3.5 L Urine WBC (Auto) Urine Creatinine Urine Total Protein 03/04/22 03/04/22 03/04/22 02:51 03:05 17:35 WBC RBC Hgb Hct RDW 16.0 H Lymph % (Auto) 8.9 L Lymph # (Auto) 0.8 L Seg Neutrophils % 84.1 H Seg Neuts % (Manual) Lymphocytes % (Manual) Seg Neutrophils # Man Lymphocytes # (Manual) ABG pH ABG HCO3 Oxyhemoglobin Sodium Potassium Chloride BUN 46 H Creatinine 1.8 H Glucose 119 H POC Glucose ALT 6 L NT-Pro-B Natriuret Pep Total Protein 8.4 H Albumin 3.4 L Urine WBC (Auto) 11.0 H Urine Creatinine Urine Total Protein 03/04/22 03/05/22 03/05/22 17:35 12:08 15:18 WBC RBC Hgb Hct RDW Lymph % (Auto) Lymph # (Auto) Seg Neutrophils % Seg Neuts % (Manual) Lymphocytes % (Manual) Seg Neutrophils # Man Lymphocytes # (Manual) ABG pH ABG HCO3 Oxyhemoglobin Sodium Potassium 6.4 H* D Chloride BUN 55 H 55 H Creatinine 2.0 H 2.0 H Glucose 120 H 116 H POC Glucose ALT NT-Pro-B Natriuret Pep Total Protein Albumin Urine WBC (Auto) Urine Creatinine 41.2 H Urine Total Protein 16 H 03/06/22 03/08/22 03/08/22 05:25 09:44 09:44 WBC RBC Hgb Hct RDW 15.9 H Lymph % (Auto) 12.2 L Lymph # (Auto) 0.9 L Seg Neutrophils % 79.5 H Seg Neuts % (Manual) Lymphocytes % (Manual) Seg Neutrophils # Man Lymphocytes # (Manual) ABG pH ABG HCO3 Oxyhemoglobin Sodium Potassium Chloride BUN 58 H 69 H Creatinine 2.1 H 2.3 H Glucose 103 H POC Glucose ALT NT-Pro-B Natriuret Pep Total Protein Albumin Urine WBC (Auto) Urine Creatinine Urine Total Protein 03/08/22 03/09/22 03/10/22 14:36 05:43 07:16 WBC RBC Hgb Hct RDW Lymph % (Auto) Lymph # (Auto) Seg Neutrophils % Seg Neuts % (Manual) Lymphocytes % (Manual) Seg Neutrophils # Man Lymphocytes # (Manual) ABG pH ABG HCO3 Oxyhemoglobin Sodium Potassium 5.3 H D Chloride BUN 70 H 82 H 95 H Creatinine 2.4 H 2.5 H 2.3 H Glucose 125 H 149 H 141 H POC Glucose ALT NT-Pro-B Natriuret Pep Total Protein Albumin Urine WBC (Auto) Urine Creatinine Urine Total Protein 03/11/22 03/11/22 03/12/22 06:44 10:35 06:27 WBC RBC Hgb Hct RDW Lymph % (Auto) Lymph # (Auto) Seg Neutrophils % Seg Neuts % (Manual) Lymphocytes % (Manual) Seg Neutrophils # Man Lymphocytes # (Manual) ABG pH 7.316 L ABG HCO3 27.3 H Oxyhemoglobin 94.0 L Sodium Potassium Chloride BUN 108 H 113 H Creatinine 2.5 H 2.4 H Glucose 141 H 216 H POC Glucose ALT NT-Pro-B Natriuret Pep Total Protein Albumin Urine WBC (Auto) Urine Creatinine Urine Total Protein 03/13/22 03/14/22 03/15/22 10:19 09:26 07:37 WBC RBC Hgb Hct RDW Lymph % (Auto) Lymph # (Auto) Seg Neutrophils % Seg Neuts % (Manual) Lymphocytes % (Manual) Seg Neutrophils # Man Lymphocytes # (Manual) ABG pH ABG HCO3 Oxyhemoglobin Sodium 136 L Potassium Chloride 97.3 L BUN 121 H 131 H 134 H Creatinine 2.4 H 2.6 H 2.5 H Glucose 279 H 146 H 156 H POC Glucose ALT NT-Pro-B Natriuret Pep Total Protein Albumin Urine WBC (Auto) Urine Creatinine Urine Total Protein 03/16/22 03/17/22 03/18/22 05:19 04:00 23:15 WBC 18.4 H RBC 5.22 H Hgb 14.9 H Hct 47.7 H RDW 15.9 H Lymph % (Auto) Lymph # (Auto) Seg Neutrophils % Seg Neuts % (Manual) 94.0 H Lymphocytes % (Manual) 2.0 L Seg Neutrophils # Man 17.3 H Lymphocytes # (Manual) 0.4 L ABG pH ABG HCO3 Oxyhemoglobin Sodium Potassium Chloride BUN 135 H 129 H Creatinine 2.5 H 2.2 H Glucose 147 H 182 H POC Glucose ALT NT-Pro-B Natriuret Pep Total Protein Albumin Urine WBC (Auto) Urine Creatinine Urine Total Protein 0703/20/22 03/20/22 05:14 11:33 15:11 WBC RBC Hgb Hct RDW Lymph % (Auto) Lymph # (Auto) Seg Neutrophils % Seg Neuts % (Manual) Lymphocytes % (Manual) Seg Neutrophils # Man Lymphocytes # (Manual) ABG pH ABG HCO3 Oxyhemoglobin Sodium 136 L Potassium Chloride 97.6 L BUN 133 H Creatinine 2.6 H Glucose 239 H POC Glucose 400 H 287 H ALT NT-Pro-B Natriuret Pep Total Protein Albumin Urine WBC (Auto) Urine Creatinine Urine Total Protein 03/20/22 03/20/22 03/21/22 15:54 20:29 05:47 WBC 20.9 H RBC 5.10 H Hgb 14.5 H Hct 45.9 H RDW 15.7 H Lymph % (Auto) Lymph # (Auto) Seg Neutrophils % Seg Neuts % (Manual) 94.0 H Lymphocytes % (Manual) 3.0 L Seg Neutrophils # Man 19.6 H Lymphocytes # (Manual) 0.6 L ABG pH ABG HCO3 Oxyhemoglobin Sodium Potassium Chloride BUN Creatinine Glucose POC Glucose 242 H 207 H ALT NT-Pro-B Natriuret Pep Total Protein Albumin Urine WBC (Auto) Urine Creatinine Urine Total Protein 03/21/22 03/21/22 03/21/22 05:47 07:57 12:16 WBC RBC Hgb Hct RDW Lymph % (Auto) Lymph # (Auto) Seg Neutrophils % Seg Neuts % (Manual) Lymphocytes % (Manual) Seg Neutrophils # Man Lymphocytes # (Manual) ABG pH ABG HCO3 Oxyhemoglobin Sodium Potassium Chloride BUN 140 H Creatinine 2.6 H Glucose 136 H POC Glucose 125 H 169 H ALT NT-Pro-B Natriuret Pep Total Protein Albumin Urine WBC (Auto) Urine Creatinine Urine Total Protein 03/21/22 03/21/22 03/22/22 16:14 20:19 08:11 WBC RBC Hgb Hct RDW Lymph % (Auto) Lymph # (Auto) Seg Neutrophils % Seg Neuts % (Manual) Lymphocytes % (Manual) Seg Neutrophils # Man Lymphocytes # (Manual) ABG pH ABG HCO3 Oxyhemoglobin Sodium Potassium Chloride BUN Creatinine Glucose POC Glucose 153 H 204 H 156 H ALT NT-Pro-B Natriuret Pep Total Protein Albumin Urine WBC (Auto) Urine Creatinine Urine Total Protein 03/22/22 03/22/22 03/22/22 12:17 16:25 21:12 WBC RBC Hgb Hct RDW Lymph % (Auto) Lymph # (Auto) Seg Neutrophils % Seg Neuts % (Manual) Lymphocytes % (Manual) Seg Neutrophils # Man Lymphocytes # (Manual) ABG pH ABG HCO3 Oxyhemoglobin Sodium Potassium Chloride BUN Creatinine Glucose POC Glucose 157 H 202 H 203 H ALT NT-Pro-B Natriuret Pep Total Protein Albumin Urine WBC (Auto) Urine Creatinine Urine Total Protein 03/23/22 03/23/22 03/23/22 07:25 11:39 12:02 WBC 19.9 H RBC 5.23 H Hgb 14.9 H Hct 46.9 H RDW 15.8 H Lymph % (Auto) Lymph # (Auto) Seg Neutrophils % Seg Neuts % (Manual) Lymphocytes % (Manual) Seg Neutrophils # Man Lymphocytes # (Manual) ABG pH ABG HCO3 Oxyhemoglobin Sodium Potassium Chloride BUN Creatinine Glucose POC Glucose 107 H 162 H ALT NT-Pro-B Natriuret Pep Total Protein Albumin Urine WBC (Auto) Urine Creatinine Urine Total Protein 03/23/22 03/23/22 12:02 15:59 WBC RBC Hgb Hct RDW Lymph % (Auto) Lymph # (Auto) Seg Neutrophils % Seg Neuts % (Manual) Lymphocytes % (Manual) Seg Neutrophils # Man Lymphocytes # (Manual) ABG pH ABG HCO3 Oxyhemoglobin Sodium Potassium Chloride 95.3 L BUN 164 H Creatinine 2.9 H Glucose 162 H POC Glucose 250 H ALT NT-Pro-B Natriuret Pep Total Protein Albumin Urine WBC (Auto) Urine Creatinine Urine Total Protein Allied health notes reviewed: nursing
[2022-03-24] MEDS: HEPARIN 5,000 UNIT/1 ML VIAL SUB-Q SCH ×3 (05:36→21:44)
--- NOTE | 2022-03-24 09:09 | Progress Note ---
Assessment and Plan - Patient Problems (1) Acute kidney injury superimposed on chronic kidney disease Current Visit: Yes Status: Acute Plan to address problem: Overall renal function remained stable at present time. Continue to avoid nephrotoxins and maintain mean arterial pressures above 65 mmHg. We will continue to monitor closely at this time. Slight elevation in serum creatinine noted on yesterday labs, pending repeat this am. Recommend to hold off on continuous IVF at her respiratory status is showing improvement and would recommend that we continue with appropriate diuresis at present time. (2) Acute exacerbation of congestive heart failure Current Visit: Yes Status: Acute Qualifiers: Heart failure type: combined systolic and diastolic Qualified Code(s): I50.43 - Acute on chronic combined systolic (congestive) and diastolic (congestive) heart failure Plan to address problem: Transition to oral torsemide regimen with adequate urine output noted. Respiratory status is also starting to show improvement as her oxygen requirements have started to decrease. Cardiology evaluation and recommendations reviewed. Counseled on appropriate fluid and sodium restriction. (3) Acute respiratory failure with hypoxia Current Visit: Yes Status: Acute Plan to address problem: Pulmonology recommendations reviewed. Oxygen requirements are starting to decrease. She remains on IV steroids which likely is also contributing to her elevated BUN levels. She does not have any symptoms concerning for uremia at present time therefore there is no need for renal replacement therapy. (4) Hypertensive chronic kidney disease with stage 1 through stage 4 chronic kidney disease, or unspecified chronic kidney disease Current Visit: Yes Status: Chronic Plan to address problem: Continue to monitor patient's blood pressures on current regimen. (5) Urinary tract infection due to ESBL Klebsiella Current Visit: Yes Status: Acute Plan to address problem: Patient has completed course of antibiotics. Asymptomatic at present time. Subjective Date of service: 03/24/22 Principal diagnosis: Hypoxic respiratory failure Interval history: No acute changes. Labs reviewed from yesterday afternoon with slight increase in serum creatinine levels. However her oxygen requirements are decreasing as she is on 4L O2 today and sats at 98%. and RT will wean down further as tolerated. Given her cardiac history, would avoid continuous IVF at present time and closely monitor. Objective - Vital Signs Vital signs: Vital Signs - 12hr 03/23/22 03/23/22 03/23/22 21:24 22:00 23:35 Temperature 97.6 F Pulse Rate 77 Respiratory 16 Rate Blood Pressure 105/56 O2 Sat by Pulse 95 97 94 Oximetry 03/24/22 03/24/22 03/24/22 00:02 02:00 04:04 Temperature 97.4 F L Pulse Rate 75 71 73 Respiratory 21 16 Rate Blood Pressure 119/59 O2 Sat by Pulse 99 99 Oximetry 03/24/22 08:08 Temperature 98.2 F Pulse Rate 66 Respiratory Rate Blood Pressure 121/71 O2 Sat by Pulse 100 Oximetry - General Appearance General appearance: obese EENT: ATNC Neck: no JVD Respiratory: Present: Decreased Breath Sounds Cardiology: regular Gastrointestinal: normal Integumentary: warm and dry Neurologic: no focal deficit Musculoskeletal: deferred Psychiatric: cooperative - Lab 03/23/22 12:02 03/23/22 12:02 Most recent lab results ABG pH 7.316 pH Units (7.350-7.450) L 03/11/22 10:35 ABG pCO2 54.7 mm Hg 03/11/22 10:35 ABG pO2 81.0 mm Hg (80.0-90.0) 03/11/22 10:35 ABG HCO3 27.3 mmol/L (20.0-26.0) H 03/11/22 10:35 ABG O2 Saturation 95.0 % (95.0-99.0) 03/11/22 10:35 Calcium 9.0 mg/dL (8.4-10.2) 03/23/22 12:02 Urine Creatinine 41.2 mg/dL (0.1-20.0) H 03/04/22 17:35 Urine Sodium 126 mmol/L 03/04/22 17:35 Urine Total Protein 16 mg/dL (5-11.8) H 03/04/22 17:35 - Imaging Chest x-ray: report reviewed - Allied health notes Allied health notes reviewed: nursing Medications & Allergies - Medications Allergies/Adverse Reactions: Allergies iodine Allergy (Verified 03/03/22 12:49) Anaphylaxis Penicillins Allergy (Verified 03/03/22 12:49) Anaphylaxis shellfish derived Allergy (Verified 03/03/22 12:49) Anaphylaxis Home Medications: Home Medications Medication Instructions Recorded Confirmed Last Taken Type Acetaminophen [Non-Aspirin Extra 500 mg PO Q8HR PRN 03/04/22 03/04/22 03/01/22 History Strength] Aspirin EC 325 mg PO 4XW 03/04/22 03/04/22 03/02/22 History Hydrocodone-Acetamin 2.5-325 5 - 325 mg PO Q6HR PRN 03/04/22 03/04/22 03/02/22 History Mucus Relief ER 600 mg PO BID 03/04/22 03/05/22 03/02/22 History Omeprazole 40 mg PO DAILY 03/04/22 03/05/22 03/02/22 History Phenazopyridine 200 mg PO TID 03/04/22 03/04/22 03/03/22 History Senna Plus Tablet 8.6 - 50 mg PO BID MDD CONSTIPATION 03/04/22 03/05/22 03/02/22 History Diclofenac Sodium ER 75 mg PO Q8HR 03/05/22 03/05/22 03/02/22 History Nifedipine ER 60 mg PO DAILY 03/05/22 03/05/22 03/02/22 History Vitamin D3 25 mg PO DAILY 03/05/22 03/05/22 03/02/22 History Active Medications: Generic Name Dose Route Start Last Admin Trade Name Bessie PRN Reason Stop Dose Admin Acetaminophen 650 mg 03/03/22 20:28 03/15/22 09:14 Acetaminophen 325 Mg Tab PO 650 mg Q4H PRN Administration Pain MILD(1-3)/Fever >100.5/HOFFMAN Cetirizine HCl 10 mg 03/12/22 15:00 03/23/22 09:46 Cetirizine 10 Mg Tab PO 10 mg QDAY VERN Administration Dextrose 50 ml 03/20/22 09:46 Dextrose 50% In Water (25gm) 50 Ml Syringe IV Q30MIN PRN Hypoglycemia Protocol Fluticasone Propionate 200 mcg 03/13/22 20:00 03/23/22 09:47 Fluticasone Propionate Nasal [place] 16 Gm NS 200 mcg QDAY VERN Administration Gabapentin 300 mg 03/22/22 22:00 03/23/22 21:07 Gabapentin 300 Mg Cap PO 300 mg BID VERN Administration Guaifenesin 600 mg 03/12/22 15:00 03/23/22 22:13 Guaifenesin Er 600 Mg Tab PO 600 mg BID VERN Administration Heparin Sodium (Porcine) 7,500 unit 03/16/22 14:00 03/24/22 05:36 Heparin 5,000 Unit/1 Ml Vial SUB-Q 7,500 unit Q8HR VERN Administration Ceftriaxone Sodium 2 gm in 100 mls @ 200 mls/hr 03/23/22 10:00 03/23/22 20:46 Rocephin/Ns 2 Gm/100 Ml IV Infused Q24H VERN Infusion Protocol Insulin Human Isoph/Insulin Regular 15 unit 03/20/22 22:00 03/23/22 21:09 Insulin Nph/Regular 70/30 Inj SUB-Q 15 unit BID VERN Administration Insulin Human Regular 0 units 03/20/22 11:30 03/23/22 21:37 Insulin Regular, Human 100 Units/1 Ml SUB-Q 4 units ACHS VERN Administration Protocol Melatonin 5 mg 03/22/22 22:00 Melatonin 5 Mg Tab PO QHS PRN Sleep Methylprednisolone Sodium Succinate 60 mg 03/23/22 10:00 03/23/22 09:46 Methylprednisolone Sod Succinate 125 Mg/2 Ml Inj IV 60 mg Q24HR VERN Administration Metoclopramide HCl 5 mg 03/11/22 12:00 Metoclopramide 10 Mg/2 Ml Inj IV Q6H PRN Nausea And Vomiting Morphine Sulfate 2 mg 03/03/22 20:28 Morphine 2 Mg/1 Ml Inj IV Q4H PRN Pain, Moderate (4-6) Ondansetron HCl 4 mg 03/03/22 20:28 Ondansetron 4 Mg/2 Ml Inj IV Q8H PRN Nausea And Vomiting Oxycodone/Acetaminophen 1 tab 03/03/22 20:28 03/09/22 12:06 Oxycodone /Acetaminophen 5-325mg Tab PO 1 tab Q6H PRN Administration Pain, Moderate (4-6) Pantoprazole Sodium 40 mg 03/12/22 15:00 03/23/22 09:46 Pantoprazole 40 Mg Tab PO 40 mg QDAC VERN Administration Polyethylene Glycol 17 gm 03/16/22 10:00 03/23/22 09:47 Polyethylene Glycol 3350 17 Gm Powder PO Not Given QDAY VERN Senna/Docusate Sodium 2 tab 03/06/22 11:00 03/23/22 22:13 Sennosides/Docusate Sodium 8.6/50 Mg Tab PO 2 tab Q12H VERN Administration Sildenafil Citrate 20 mg 03/11/22 14:00 03/23/22 20:56 Sildenafil 20 Mg Tab PO 20 mg TID VERN Administration Sodium Chloride 10 ml 03/03/22 22:00 03/23/22 22:14 Sodium Chloride 0.9% 10 Ml Flush Syringe IV 10 ml BID VERN Administration Sodium Chloride 10 ml 03/03/22 20:28 Sodium Chloride 0.9% 10 Ml Flush Syringe IV PRN PRN LINE FLUSH Torsemide 40 mg 03/17/22 10:00 03/23/22 09:47 Torsemide 10 Mg Tab PO 40 mg DAILY VERN Administration Zolpidem Tartrate 5 mg 03/22/22 22:00 Zolpidem 5 Mg Tab PO QHS PRN Sleep
[2022-03-24 10:00] LABS: Hemoglobin 15.2 gm/dl (10.1-14.3); Mean Corpuscular HGB Conc 32 % (30-34); Mean Corpuscular Volume 88 fl (79-97); Platelet Count 154 K/mm3 (140-440); Red Blood Count 5.32 M/mm3 (3.65-5.03)
[2022-03-24] MEDS: INSULIN NPH/REGULAR 70/30 INJ SUB-Q SCH ×2 (10:07→21:42)
[2022-03-24] MEDS: TORSEMIDE 10 MG TAB PO SCH (10:08)
[2022-03-24] MEDS: CETIRIZINE 10 MG TAB PO SCH (10:08)
[2022-03-24] MEDS: FLUTICASONE PROPIONATE NASAL SPRAY 16 GM NS SCH (10:08)
[2022-03-24] MEDS: methylPREDNISolone Sod Succinate 125 MG/2 ML INJ IV SCH (10:09)
[2022-03-24] MEDS: POLYETHYLENE GLYCOL 3350 17 GM POWDER PO SCH (10:11)
[2022-03-24] MEDS: GABAPENTIN 300 MG CAP PO SCH ×2 (10:11→21:41)
[2022-03-24 10:12] LABS: Calcium 9.1 mg/dL (8.4-10.2)
[2022-03-24] MEDS: guaiFENesin ER 600 MG TAB PO SCH ×2 (10:13→21:41)
[2022-03-24] MEDS: SENNOSIDES/DOCUSATE SODIUM 8.6/50 MG TAB PO SCH (10:13)
[2022-03-24] MEDS: cefTRIAXone/NS 2 GM/100 ML 2 GM/100 ML BAG IV SCH (10:27)
[2022-03-24] MEDS: PANTOPRAZOLE 40 MG TAB PO SCH (10:28)
[2022-03-24] MEDS: INSULIN REGULAR, HUMAN 100 UNITS/1 ML SUB-Q SCH ×4 (10:28→21:43)
--- NOTE | 2022-03-24 10:58 | Progress Note ---
Assessment and Plan 71 y/o female with severe pulm htn and Eliseo with acute on chronic respiratory failure. 03/24/22: Now on 4 liters. NIV therapy at night and PRN. Same steroid taper. Needs RHC at some point. Hopeful discharge soon. 03/23/22: 5 liters is patients prior oxygen baseline. Will need prolonged steroid taper and suggest the followin daily for 5 days, 40 daily for 5 days, 20 daily for 5 days and then 10mg daily indefinitely until she can follow up with either us or her PCP. Still would benefit from RHC but doubt this will happen prior to discharge. Will continue to follow. 03/22/22: Dropped steroids to daily today. Continue sildenafil. Patient still needs RHC, most likely this would have to happen as an outpatient. She is not a candidate for surgery given her degree of Pulm HTN. I do not recommend general anesthesia for her at this time. Especially without a right heart cath knowing what her true numbers are. If able to get to her baseline flow, hopeful discharge soon. 03/21/22: Continue to wean for sats >88%. If not mistaken, baseline flow at home was 5. Continue sildenafil. Will drop steroids tomorrow. 03/20/22: H/H was stable. continue sildenafil. Continue to wean FiO2 as tolerated. Still needs RHC. Overall prognosis is guarded to poor. Will consider decreasing steroids tomorrow if she can maintain on 7 liters. 03/18/22: consider checking CBC with diff. Continue Sildenafil for now. Needs RHC to assess if true Type 1 Pulm HTN. Overall prognosis is guarded to poor. 03/17/22: Given increase in O2 requirement, will hold on dropping steroids today. Otherwise, same recs as the day before. 03/16/22: Will drop steroids to daily starting tomorrow. Continue TID Sildenafil. Reviewed Social work note. There is no debate about therapy. The only safe thing that can be administered at this time is sildenafil three times daily which she is tolerating. No further therapy would be started without RHC number. I reviewed a CM note from 2 days prior that states [facility] would be willing to accept what is documented as 30 liters of flow. Patient is now on 20. Would continue daily net negative state as long as blood pressure and renal function will allow. Continue to wean FiO2 as tolerated for sats >88% 03/15/22: Decreased steroids to BID. Continue Sildenafil at current dosing. Co ntinue daily net negative state if possible and wean FiO2 for sats >88%. Still feel patient would benefit from right and left heart cath if able to be weaned off HFNC and able to lie flat. 03/09/22: Without an exact cause for her Pulm HTN, would be difficult to say if there is anything else that could be done for her severe pulm HTN. If this is truly worsening of lung disease, given the rate that it has happened, even treatment of COPD would not improve quality of life significantly. If she has developed type 1 pulmonary HTN, she would need at least 2-3 drug therapy and she may not tolerate this as well given her age and current clinical status. A right and left heart cath would be necessary before determination of this degree of therapy. Do not disagree with hospice referral again. Has been on steroid therapy less than 24 hours. Would continue to see if any benefit. Prognosis s till remains guarded. 03/08/22: Last time this patient was seen in our office was 2015. At that time she only had mild COPD. Unable to obtain repeat divina at this time. She did not smoke since being on hospice care and was recently discharged secondary to lack of further decline (although one could argue for it now). Will attempt steroid therapy to see if this improves oxygen requirement, however as stated earlier, patient may benefit from right heart cath with drug study if no improvement on steroids. V/Q done but was not ordered looking for acute PE but more for concern for CTEPH. Guarded prognosis. 03/07/22: No new recs. Will find old office notes today to see the last time we saw this patient. 03/06/22: CXR read by rads suggest unchanged edema. Agree with continued diuresis and fluid restriction. Wean Vent for sats >88%. Continue NIV therapy at night 1. Cardiology following. This degree of Pulm HTN is not seen with just ELISEO alone, especially in someone who is compliant with therapy. Defer to cards but would consider right heart cath if not already done previously 2. Continue bipap therapy at night as well as PRN during the day. Patient does not know her settings for her machine at home and my office did not manipulate these numbers last. Will titrate sat of >88% and comfort 3. Agree with continued diuresis, CXR shows continued vascular congestion, may be slightly better, maybe 4. Wean FiO2 for sats >88% Subjective Date of service: 03/24/22 Principal diagnosis: Hypoxic respiratory failure Interval history: Down to 4 liters now. Lying in bed in no distress. Wore NIV therapy last night. Objective Vital Signs - 12hr 03/23/22 03/24/22 03/24/22 23:35 00:02 02:00 Temperature 97.6 F Pulse Rate 77 75 71 Respiratory 16 21 Rate Blood Pressure 105/56 O2 Sat by Pulse 94 99 Oximetry 03/24/22 03/24/22 04:04 08:08 Temperature 97.4 F L 98.2 F Pulse Rate 73 66 Respiratory 16 Rate Blood Pressure 119/59 121/71 O2 Sat by Pulse 99 100 Oximetry Constitutional: no acute distress, alert, other (obese) Eyes: non-icteric ENT: oropharynx moist Neck: supple, other (obese) Effort: mildly labored Ascultation: Bilateral: diminished breath sounds, rales Percussion: Bilateral: not dull Cardiovascular: regular rate and rhythm (no mrg) Gastrointestinal: normoactive bowel sounds, soft, non-tender, non-distended Integumentary: normal Extremities: no cyanosis, no edema, pink and warm Neurologic: normal mental status, non-focal exam, pupils equal and round Psychiatric: mood appropriate, affect normal CBC and BMP: 03/24/22 09:02 03/24/22 09:02 ABG, PT/INR, D-dimer: ABG ABG pH 7.316 pH Units (7.350-7.450) L 03/11/22 10:35 ABG pCO2 54.7 mm Hg 03/11/22 10:35 ABG pO2 81.0 mm Hg (80.0-90.0) 03/11/22 10:35 ABG O2 Saturation 95.0 % (95.0-99.0) 03/11/22 10:35 Abnormal lab findings: Abnormal Labs 03/03/22 03/03/22 03/03/22 13:34 13:34 13:34 WBC RBC Hgb Hct RDW 16.1 H Lymph % (Auto) 9.7 L Lymph # (Auto) 0.8 L Seg Neutrophils % 84.6 H Seg Neuts % (Manual) Lymphocytes % (Manual) Seg Neutrophils # Man Lymphocytes # (Manual) ABG pH ABG HCO3 Oxyhemoglobin Sodium Potassium Chloride BUN 47 H Creatinine 1.7 H Glucose 101 H POC Glucose ALT NT-Pro-B Natriuret Pep 67438 H Total Protein 9.1 H Albumin 3.5 L Urine WBC (Auto) Urine Creatinine Urine Total Protein 03/04/22 03/04/22 03/04/22 02:51 03:05 17:35 WBC RBC Hgb Hct RDW 16.0 H Lymph % (Auto) 8.9 L Lymph # (Auto) 0.8 L Seg Neutrophils % 84.1 H Seg Neuts % (Manual) Lymphocytes % (Manual) Seg Neutrophils # Man Lymphocytes # (Manual) ABG pH ABG HCO3 Oxyhemoglobin Sodium Potassium Chloride BUN 46 H Creatinine 1.8 H Glucose 119 H POC Glucose ALT 6 L NT-Pro-B Natriuret Pep Total Protein 8.4 H Albumin 3.4 L Urine WBC (Auto) 11.0 H Urine Creatinine Urine Total Protein 03/04/22 03/05/22 03/05/22 17:35 12:08 15:18 WBC RBC Hgb Hct RDW Lymph % (Auto) Lymph # (Auto) Seg Neutrophils % Seg Neuts % (Manual) Lymphocytes % (Manual) Seg Neutrophils # Man Lymphocytes # (Manual) ABG pH ABG HCO3 Oxyhemoglobin Sodium Potassium 6.4 H* D Chloride BUN 55 H 55 H Creatinine 2.0 H 2.0 H Glucose 120 H 116 H POC Glucose ALT NT-Pro-B Natriuret Pep Total Protein Albumin Urine WBC (Auto) Urine Creatinine 41.2 H Urine Total Protein 16 H 03/06/22 03/08/22 03/08/22 05:25 09:44 09:44 WBC RBC Hgb Hct RDW 15.9 H Lymph % (Auto) 12.2 L Lymph # (Auto) 0.9 L Seg Neutrophils % 79.5 H Seg Neuts % (Manual) Lymphocytes % (Manual) Seg Neutrophils # Man Lymphocytes # (Manual) ABG pH ABG HCO3 Oxyhemoglobin Sodium Potassium Chloride BUN 58 H 69 H Creatinine 2.1 H 2.3 H Glucose 103 H POC Glucose ALT NT-Pro-B Natriuret Pep Total Protein Albumin Urine WBC (Auto) Urine Creatinine Urine Total Protein 03/08/22 03/09/22 03/10/22 14:36 05:43 07:16 WBC RBC Hgb Hct RDW Lymph % (Auto) Lymph # (Auto) Seg Neutrophils % Seg Neuts % (Manual) Lymphocytes % (Manual) Seg Neutrophils # Man Lymphocytes # (Manual) ABG pH ABG HCO3 Oxyhemoglobin Sodium Potassium 5.3 H D Chloride BUN 70 H 82 H 95 H Creatinine 2.4 H 2.5 H 2.3 H Glucose 125 H 149 H 141 H POC Glucose ALT NT-Pro-B Natriuret Pep Total Protein Albumin Urine WBC (Auto) Urine Creatinine Urine Total Protein 03/11/22 03/11/22 03/12/22 06:44 10:35 06:27 WBC RBC Hgb Hct RDW Lymph % (Auto) Lymph # (Auto) Seg Neutrophils % Seg Neuts % (Manual) Lymphocytes % (Manual) Seg Neutrophils # Man Lymphocytes # (Manual) ABG pH 7.316 L ABG HCO3 27.3 H Oxyhemoglobin 94.0 L Sodium Potassium Chloride BUN 108 H 113 H Creatinine 2.5 H 2.4 H Glucose 141 H 216 H POC Glucose ALT NT-Pro-B Natriuret Pep Total Protein Albumin Urine WBC (Auto) Urine Creatinine Urine Total Protein 03/13/22 03/14/22 03/15/22 10:19 09:26 07:37 WBC RBC Hgb Hct RDW Lymph % (Auto) Lymph # (Auto) Seg Neutrophils % Seg Neuts % (Manual) Lymphocytes % (Manual) Seg Neutrophils # Man Lymphocytes # (Manual) ABG pH ABG HCO3 Oxyhemoglobin Sodium 136 L Potassium Chloride 97.3 L BUN 121 H 131 H 134 H Creatinine 2.4 H 2.6 H 2.5 H Glucose 279 H 146 H 156 H POC Glucose ALT NT-Pro-B Natriuret Pep Total Protein Albumin Urine WBC (Auto) Urine Creatinine Urine Total Protein 03/16/22 03/17/22 03/18/22 05:19 04:00 23:15 WBC 18.4 H RBC 5.22 H Hgb 14.9 H Hct 47.7 H RDW 15.9 H Lymph % (Auto) Lymph # (Auto) Seg Neutrophils % Seg Neuts % (Manual) 94.0 H Lymphocytes % (Manual) 2.0 L Seg Neutrophils # Man 17.3 H Lymphocytes # (Manual) 0.4 L ABG pH ABG HCO3 Oxyhemoglobin Sodium Potassium Chloride BUN 135 H 129 H Creatinine 2.5 H 2.2 H Glucose 147 H 182 H POC Glucose ALT NT-Pro-B Natriuret Pep Total Protein Albumin Urine WBC (Auto) Urine Creatinine Urine Total Protein 03/20/22 03/20/22 03/20/22 05:14 11:33 15:11 WBC RBC Hgb Hct RDW Lymph % (Auto) Lymph # (Auto) Seg Neutrophils % Seg Neuts % (Manual) Lymphocytes % (Manual) Seg Neutrophils # Man Lymphocytes # (Manual) ABG pH ABG HCO3 Oxyhemoglobin Sodium 136 L Potassium Chloride 97.6 L BUN 133 H Creatinine 2.6 H Glucose 239 H POC Glucose 400 H 287 H ALT NT-Pro-B Natriuret Pep Total Protein Albumin Urine WBC (Auto) Urine Creatinine Urine Total Protein 03/20/22 03/20/22 03/21/22 15:54 20:29 05:47 WBC 20.9 H RBC 5.10 H Hgb 14.5 H Hct 45.9 H RDW 15.7 H Lymph % (Auto) Lymph # (Auto) Seg Neutrophils % Seg Neuts % (Manual) 94.0 H Lymphocytes % (Manual) 3.0 L Seg Neutrophils # Man 19.6 H Lymphocytes # (Manual) 0.6 L ABG pH ABG HCO3 Oxyhemoglobin Sodium Potassium Chloride BUN Creatinine Glucose POC Glucose 242 H 207 H ALT NT-Pro-B Natriuret Pep Total Protein Albumin Urine WBC (Auto) Urine Creatinine Urine Total Protein 03/21/22 03/21/22 03/21/22 05:47 07:57 12:16 WBC RBC Hgb Hct RDW Lymph % (Auto) Lymph # (Auto) Seg Neutrophils % Seg Neuts % (Manual) Lymphocytes % (Manual) Seg Neutrophils # Man Lymphocytes # (Manual) ABG pH ABG HCO3 Oxyhemoglobin Sodium Potassium Chloride BUN 140 H Creatinine 2.6 H Glucose 136 H POC Glucose 125 H 169 H ALT NT-Pro-B Natriuret Pep Total Protein Albumin Urine WBC (Auto) Urine Creatinine Urine Total Protein 03/21/22 03/21/22 03/22/22 16:14 20:19 08:11 WBC RBC Hgb Hct RDW Lymph % (Auto) Lymph # (Auto) Seg Neutrophils % Seg Neuts % (Manual) Lymphocytes % (Manual) Seg Neutrophils # Man Lymphocytes # (Manual) ABG pH ABG HCO3 Oxyhemoglobin Sodium Potassium Chloride BUN Creatinine Glucose POC Glucose 153 H 204 H 156 H ALT NT-Pro-B Natriuret Pep Total Protein Albumin Urine WBC (Auto) Urine Creatinine Urine Total Protein 03/22/22 03/22/22 03/22/22 12:17 16:25 21:12 WBC RBC Hgb Hct RDW Lymph % (Auto) Lymph # (Auto) Seg Neutrophils % Seg Neuts % (Manual) Lymphocytes % (Manual) Seg Neutrophils # Man Lymphocytes # (Manual) ABG pH ABG HCO3 Oxyhemoglobin Sodium Potassium Chloride BUN Creatinine Glucose POC Glucose 157 H 202 H 203 H ALT NT-Pro-B Natriuret Pep Total Protein Albumin Urine WBC (Auto) Urine Creatinine Urine Total Protein 03/23/22 03/23/22 03/23/22 07:25 11:39 12:02 WBC 19.9 H RBC 5.23 H Hgb 14.9 H Hct 46.9 H RDW 15.8 H Lymph % (Auto) Lymph # (Auto) Seg Neutrophils % Seg Neuts % (Manual) Lymphocytes % (Manual) Seg Neutrophils # Man Lymphocytes # (Manual) ABG pH ABG HCO3 Oxyhemoglobin Sodium Potassium Chloride BUN Creatinine Glucose POC Glucose 107 H 162 H ALT NT-Pro-B Natriuret Pep Total Protein Albumin Urine WBC (Auto) Urine Creatinine Urine Total Protein 03/23/22 03/23/22 03/23/22 12:02 15:59 20:36 WBC RBC Hgb Hct RDW Lymph % (Auto) Lymph # (Auto) Seg Neutrophils % Seg Neuts % (Manual) Lymphocytes % (Manual) Seg Neutrophils # Man Lymphocytes # (Manual) ABG pH ABG HCO3 Oxyhemoglobin Sodium Potassium Chloride 95.3 L BUN 164 H Creatinine 2.9 H Glucose 162 H POC Glucose 250 H 256 H ALT NT-Pro-B Natriuret Pep Total Protein Albumin Urine WBC (Auto) Urine Creatinine Urine Total Protein 03/24/22 03/24/22 09:02 09:02 WBC 18.8 H RBC 5.32 H Hgb 15.2 H Hct 47.0 H RDW 16.0 H Lymph % (Auto) Lymph # (Auto) Seg Neutrophils % Seg Neuts % (Manual) Lymphocytes % (Manual) Seg Neutrophils # Man Lymphocytes # (Manual) ABG pH ABG HCO3 Oxyhemoglobin Sodium Potassium 5.4 H Chloride 97.4 L BUN 166 H Creatinine 2.8 H Glucose POC Glucose ALT NT-Pro-B Natriuret Pep Total Protein Albumin Urine WBC (Auto) Urine Creatinine Urine Total Protein Allied health notes reviewed: nursing
--- NOTE | 2022-03-24 12:50 | Progress Note ---
Assessment and Plan Assessment and plan: #Severe pulmonary arterial hypertension #Acute on chronic hypoxic respiratory failure-improving - baseline oxygen requirements: 5 L nasal cannula - supplemental oxygen: NC @ 5LPM, will wean as tolerated Pulmonology following; assistance appreciated - Continue protocol: continue pulse oximetry, wean oxygen as tolerated, ordered incentive spirometry and educated patient on how to use it and its importance - Unremarkable LE dopplers. V/Q scan low probability for PE - CTA of the chest: intersitial edema and central pulmonary arterial enlargement suggest of PAH - may benefit from R + L heart cath for further evaluation outpatient as patient may likely be discharged soon - will start oral steroid taper prior to discharge - continue sildenafil and steroids #Left heel ulcer Concern for chronic osteomyelitis General surgery and Vascular surgery following; appreciate recs; possible intervention on Monday - culture growing GNRs and ernestine walshn started -Pulmonology advises against general anesthesia for possible surgical int ervention, supportive care at this time #Acute on chronic diastolic heart failureresolved #Cor pulmonale - Continue CHF exacerbation protocol: Telemetry, Strict I/O, monitor urine output every shift, daily weights, afterload reduction, low-sodium diet, and fluid restriction of approximately 1.5 mL/day - continue PO diuretics - ProBNP on admission: 11,875 - Cardiology following; appreciate recs - TTE (03/04/2022) revealing EF 50-55% with normal-sized LV, lower limits of nor mal LV systolic function, borderline concentric LVH, severely dilated RV, severely reduced RV systolic function, mildly dilated LA, severely dilated RA, RVSP >95 mmHg, and severe pulmonary hypertension. -continue PO torsemide #Leukocytosis - WBC stable, patient afebrile, only has chronic L foot ulcer - likely secondary to demarginalization in setting of steroid administration -continue ABX as above #ESBL UTI/cystitis without hematuriaresolved Urinalysis revealing large leukocyte esterase, WBC 11, 1+ bacteria, few budding yeast. - s/p Macrobid and ertapenem x3 doses started per ID recs Continue precautions #Atypical chest painruled out Negative troponin x2 Likely secondary to volume overload in the setting of acute heart failure. #RIN on CKD stage IIIstable SCr 2.9 Renally dose meds and avoid nephrotoxic drugs Nephrology following; appreciate recs #Mild protein caloric malnutrition Albumin 3.4 Continue dietary supplementation #Morbid obesity #Weight loss counseling #Exercise counseling - BMI 53.1 - Counseled patient on the importance of weight loss, incorporating exercise, and dietary changes (lean meats, fresh fruits and vegetables, and water intake). Patient expresses understanding. - Time: +15 min #Advanced care planning -Disease education conducted, care plan discussed, diagnoses discussed, prognos is discussed, and patient acknowledges understanding with care plan -Time: +30 min #Discharge planning - Patient is pending approval for LTAC, patient with improving O2 requirement, may be discharged home once she reaches home O2 level vs subacute rehab - Case management has been made aware. History Interval history: No acute events overnight. Patient stable on 5 L nasal cannula. She was updated on current care plan, patient agreeable. Hospitalist Physical - Physical exam Narrative exam: GENERAL: Obese woman. In no acute distress. HEENT: Nasal cannula 5 L/min. CHEST/LUNGS: Prolonged expiratory phase, otherwise CTAB. HEART/CARDIOVASCULAR: RRR. No murmur, rubs or gallops appreciated. ABDOMEN: +BS. NT/ND. NEURO: No focal motor deficit. Follows all commands. EXTREMITIES: BLE chronic venous stasis changes. No clubbing or edema. Left lower extremity ulcer at heel without drainage. PSYCH: Cooperative. - Constitutional Vitals: Temp Pulse Resp BP Pulse Ox 98.2 F 66 26 H 121/71 100 03/24/22 08:08 03/24/22 08:08 03/24/22 07:50 03/24/22 08:08 03/24/22 10:00 General appearance: Present: no acute distress, obese HEART Score - HEART Score Age: > 65 Risk factors: 1-2 risk factors Troponin: Troponin T < 0.010 ng/mL (0.00-0.029) 03/03/22 13:34 Troponin: < normal limit - Critical Actions Critical Actions: 4-6 pts:12-16.6% risk of adverse cardiac event. Should be admitted Results - Labs CBC & Chem 7: 03/24/22 09:02 03/24/22 09:02 Labs: Laboratory Last Values WBC 18.8 K/mm3 (4.5-11.0) H 03/24/22 09:02 RBC 5.32 M/mm3 (3.65-5.03) H 03/24/22 09:02 Hgb 15.2 gm/dl (10.1-14.3) H 03/24/22 09:02 Hct 47.0 % (30.3-42.9) H 03/24/22 09:02 MCV 88 fl (79-97) 03/24/22 09:02 MCH 29 pg (28-32) 03/24/22 09:02 MCHC 32 % (30-34) 03/24/22 09:02 RDW 16.0 % (13.2-15.2) H 03/24/22 09:02 Plt Count 154 K/mm3 (140-440) 03/24/22 09:02 Lymph % (Auto) 12.2 % (13.4-35.0) L 03/08/22 09:44 Kane % (Auto) 4.6 % (0.0-7.3) 03/08/22 09:44 Eos % (Auto) 3.0 % (0.0-4.3) 03/08/22 09:44 Baso % (Auto) 0.7 % (0.0-1.8) 03/08/22 09:44 Lymph # (Auto) 0.9 K/mm3 (1.2-5.4) L 03/08/22 09:44 Kane # (Auto) 0.4 K/mm3 (0.0-0.8) 03/08/22 09:44 Eos # (Auto) 0.2 K/mm3 (0.0-0.4) 03/08/22 09:44 Baso # (Auto) 0.1 K/mm3 (0.0-0.1) 03/08/22 09:44 Add Manual Diff Complete 03/21/22 05:47 Total Counted 100 03/21/22 05:47 Seg Neutrophils % [employer] 03/21/22 05:47 Seg Neuts % (Manual) 94.0 % (40.0-70.0) H 03/21/22 05:47 Band Neutrophils % 0 % 03/21/22 05:47 Lymphocytes % (Manual) 3.0 % (13.4-35.0) L 03/21/22 05:47 Reactive Lymphs % (Man) 0 % 03/21/22 05:47 Monocytes % (Manual) 2.0 % (0.0-7.3) 03/21/22 05:47 Eosinophils % (Manual) 1.0 % (0.0-4.3) 03/21/22 05:47 Basophils % (Manual) 0 % (0.0-1.8) 03/21/22 05:47 Metamyelocytes % 0 % 03/21/22 05:47 Myelocytes % 0 % 03/21/22 05:47 Promyelocytes % 0 % 03/21/22 05:47 Blast Cells % 0 % 03/21/22 05:47 Nucleated RBC % Not Reportable 03/21/22 05:47 Seg Neutrophils # 6.0 K/mm3 (1.8-7.7) 03/08/22 09:44 Seg Neutrophils # Man 19.6 K/mm3 (1.8-7.7) H 03/21/22 05:47 Band Neutrophils # 0.0 K/mm3 03/21/22 05:47 Lymphocytes # (Manual) 0.6 K/mm3 (1.2-5.4) L 03/21/22 05:47 Abs React Lymphs (Man) 0.0 K/mm3 03/21/22 05:47 Monocytes # (Manual) 0.4 K/mm3 (0.0-0.8) 03/21/22 05:47 Eosinophils # (Manual) 0.2 K/mm3 (0.0-0.4) 03/21/22 05:47 Basophils # (Manual) 0.0 K/mm3 (0.0-0.1) 03/21/22 05:47 Metamyelocytes # 0.0 K/mm3 03/21/22 05:47 Myelocytes # 0.0 K/mm3 03/21/22 05:47 Promyelocytes # 0.0 K/mm3 03/21/22 05:47 Blast Cells # 0.0 K/mm3 03/21/22 05:47 WBC Morphology Not Reportable 03/21/22 05:47 Hypersegmented Neuts Not Reportable 03/21/22 05:47 Hyposegmented Neuts Not Reportable 03/21/22 05:47 Hypogranular Neuts Not Reportable 03/21/22 05:47 Smudge Cells Not Reportable 03/21/22 05:47 Toxic Granulation Not Reportable 03/21/22 05:47 Toxic Vacuolation Not Reportable 03/21/22 05:47 Dohle Bodies Not Reportable 03/21/22 05:47 Pelger-Huet Anomaly Not Reportable 03/21/22 05:47 Npetali Rods Not Reportable 03/21/22 05:47 Platelet Estimate Consistent w auto 03/21/22 05:47 Clumped Platelets Not Reportable 03/21/22 05:47 Plt Clumps, EDTA Not Reportable 03/21/22 05:47 Large Platelets Not Reportable 03/21/22 05:47 Giant Platelets Not Reportable 03/21/22 05:47 Platelet Satelliting Not Reportable 03/21/22 05:47 Plt Morphology Comment Not Reportable 03/21/22 05:47 RBC Morphology Not Reportable 03/21/22 05:47 Dimorphic RBCs Not Reportable 03/21/22 05:47 Polychromasia Not Reportable 03/21/22 05:47 Hypochromasia Not Reportable 03/21/22 05:47 Poikilocytosis Not Reportable 03/21/22 05:47 Anisocytosis Not Reportable 03/21/22 05:47 Microcytosis Not Reportable 03/21/22 05:47 Macrocytosis Not Reportable 03/21/22 05:47 Spherocytes Not Reportable 03/21/22 05:47 Pappenheimer Bodies Not Reportable 03/21/22 05:47 Sickle Cells Not Reportable 03/21/22 05:47 Target Cells Rare 03/21/22 05:47 Tear Drop Cells Not Reportable 03/21/22 05:47 Ovalocytes Not Reportable 03/21/22 05:47 Helmet Cells Not Reportable 03/21/22 05:47 B[place] Bodies Not Reportable 03/21/22 05:47 Hardesty Rings Not Reportable 03/21/22 05:47 Kathleen Cells Not Reportable 03/21/22 05:47 Bite Cells Not Reportable 03/21/22 05:47 Crenated Cell Not Reportable 03/21/22 05:47 Elliptocytes Not Reportable 03/21/22 05:47 Acanthocytes (Spur) Not Reportable 03/21/22 05:47 Rouleaux Not Reportable 03/21/22 05:47 Hemoglobin C Crystals Not Reportable 03/21/22 05:47 Schistocytes Not Reportable 03/21/22 05:47 Malaria parasites Not Reportable 03/21/22 05:47 Juancarlos Bodies Not Reportable 03/21/22 05:47 Hem Pathologist Commnt No 03/21/22 05:47 ABG pH 7.316 pH Units (7.350-7.450) L 03/11/22 10:35 ABG pCO2 54.7 mm Hg 03/11/22 10:35 ABG pO2 81.0 mm Hg (80.0-90.0) 03/11/22 10:35 ABG HCO3 27.3 mmol/L (20.0-26.0) H 03/11/22 10:35 ABG O2 Saturation 95.0 % (95.0-99.0) 03/11/22 10:35 ABG O2 Content 18.1 (0.0-44) 03/11/22 10:35 ABG Base Excess 0.2 mmol/L (-2.0-3.0) 03/11/22 10:35 ABG Hemoglobin 13.7 gm/dl (12.0-16.0) 03/11/22 10:35 ABG Carboxyhemoglobin 0.7 % (0.0-5.0) 03/11/22 10:35 ABG Methemoglobin 0.4 % (0.0-1.5) 03/11/22 10:35 Oxyhemoglobin 94.0 % (95.0-99.0) L 03/11/22 10:35 FiO2 90 % 03/11/22 10:35 Sodium 144 mmol/L (137-145) 03/24/22 09:02 Potassium 5.4 mmol/L (3.6-5.0) H 03/24/22 09:02 Chloride 97.4 mmol/L (98-107) L 03/24/22 09:02 Carbon Dioxide 30 mmol/L (22-30) 03/24/22 09:02 Anion Gap 22 mmol/L 03/24/22 09:02 BUN 166 mg/dL (7-17) H 03/24/22 09:02 Creatinine 2.8 mg/dL (0.6-1.2) H 03/24/22 09:02 Estimated GFR 20 ml/min 03/24/22 09:02 BUN/Creatinine Ratio 59 % 03/24/22 09:02 Glucose 90 mg/dL (65-100) 03/24/22 09:02 POC Glucose 222 mg/dL (70-105) H 03/24/22 11:19 Calcium 9.1 mg/dL (8.4-10.2) 03/24/22 09:02 Total Bilirubin 0.60 mg/dL (0.1-1.2) 03/04/22 02:51 AST 12 units/L (5-40) 03/04/22 02:51 ALT 6 units/L (7-56) L 03/04/22 02:51 Alkaline Phosphatase 91 units/L (35-129) 03/04/22 02:51 Troponin T < 0.010 ng/mL (0.00-0.029) 03/03/22 13:34 NT-Pro-B Natriuret Pep 75244 pg/mL (0-900) H 03/03/22 13:34 Total Protein 8.4 g/dL (6.3-8.2) H 03/04/22 02:51 Albumin 3.4 g/dL (3.9-5) L 03/04/22 02:51 Albumin/Globulin Ratio 0.7 % 03/04/22 02:51 Urine Color Yellow (Yellow) 03/04/22 17:35 Urine Turbidity Slightly-cloudy (Clear) 03/04/22 17:35 Urine pH 6.0 (5.0-7.0) 03/04/22 17:35 Ur Specific [place] 1.008 (1.003-1.030) 03/04/22 17:35 Urine Protein <15 mg/dl mg/dL (Negative) 03/04/22 17:35 Urine Glucose (UA) Neg mg/dL (Negative) 03/04/22 17:35 Urine Ketones Neg mg/dL (Negative) 03/04/22 17:35 Urine Blood Mod (Negative) 03/04/22 17:35 Urine Nitrite Neg (Negative) 03/04/22 17:35 Urine Bilirubin Neg (Negative) 03/04/22 17:35 Urine Urobilinogen < 2.0 mg/dL (<2.0) 03/04/22 17:35 Ur Leukocyte Esterase Lg (Negative) 03/04/22 17:35 Urine WBC (Auto) 11.0 /HPF (0.0-6.0) H 03/04/22 17:35 Urine RBC (Auto) 2.0 /HPF (0.0-6.0) 03/04/22 17:35 U Epithel Cells (Auto) 1.0 /HPF (0-13.0) 03/04/22 17:35 Urine Bacteria (Auto) 1+ /HPF (Negative) 03/04/22 17:35 Urine Mucus Few /HPF 03/04/22 17:35 Urine Yeast (Budding) Few /HPF 03/04/22 17:35 Urine Creatinine 41.2 mg/dL (0.1-20.0) H 03/04/22 17:35 Urine Sodium 126 mmol/L 03/04/22 17:35 Urine Total Protein 16 mg/dL (5-11.8) H 03/04/22 17:35 Coronavirus (PCR) Negative (Negative) 03/04/22 09:57 Microbiology: Microbiology 03/18/22 Unknown Foot - Left Wound Culture - Preliminary Proteus Mirabilis Gram Negative Yohan#2 Gale/IV: Voiding Method External Female Catheter Active Medications - Current Medications Current Medications: Generic Name Dose Route Start Last Admin Trade Name Freq PRN Reason Stop Dose Admin Acetaminophen 650 mg 03/03/22 20:28 03/15/22 09:14 Acetaminophen 325 Mg Tab PO 650 mg Q4H PRN Administration Pain MILD(1-3)/Fever >100.5/HOFFMAN Cetirizine HCl 10 mg 03/12/22 15:00 03/24/22 10:08 Cetirizine 10 Mg Tab PO 10 mg QDAY VERN Administration Dextrose 50 ml 03/20/22 09:46 Dextrose 50% In Water (25gm) 50 Ml Syringe IV Q30MIN PRN Hypoglycemia Protocol Fluticasone Propionate 200 mcg 03/13/22 20:00 03/24/22 10:08 Fluticasone Propionate Nasal [place] 16 Gm NS 200 mcg QDAY VERN Administration Gabapentin 300 mg 03/22/22 22:00 03/24/22 10:11 Gabapentin 300 Mg Cap PO 300 mg BID VERN Administration Guaifenesin 600 mg 03/12/22 15:00 03/24/22 10:13 Guaifenesin Er 600 Mg Tab PO 600 mg BID VERN Administration Heparin Sodium (Porcine) 7,500 unit 03/16/22 14:00 03/24/22 05:36 Heparin 5,000 Unit/1 Ml Vial SUB-Q 7,500 unit Q8HR VERN Administration Ceftriaxone Sodium 2 gm in 100 mls @ 200 mls/hr 03/23/22 10:00 03/24/22 10:27 Rocephin/Ns 2 Gm/100 Ml IV 200 mls/hr Q24H VERN Administration Protocol Insulin Human Isoph/Insulin Regular 15 unit 03/20/22 22:00 03/24/22 10:07 Insulin Nph/Regular 70/30 Inj SUB-Q 15 unit BID VERN Administration Insulin Human Regular 0 units 03/20/22 11:30 03/24/22 10:28 Insulin Regular, Human 100 Units/1 Ml SUB-Q Not Given ACHS [facility] Protocol Melatonin 5 mg 03/22/22 22:00 Melatonin 5 Mg Tab PO QHS PRN Sleep Methylprednisolone Sodium Succinate 60 mg 03/23/22 10:00 03/24/22 10:09 Methylprednisolone Sod Succinate 125 Mg/2 Ml Inj IV 60 mg Q24HR VERN Administration Metoclopramide HCl 5 mg 03/11/22 12:00 Metoclopramide 10 Mg/2 Ml Inj IV Q6H PRN Nausea And Vomiting Morphine Sulfate 2 mg 03/03/22 20:28 Morphine 2 Mg/1 Ml Inj IV Q4H PRN Pain, Moderate (4-6) Ondansetron HCl 4 mg 03/03/22 20:28 Ondansetron 4 Mg/2 Ml Inj IV Q8H PRN Nausea And Vomiting Oxycodone/Acetaminophen 1 tab 03/03/22 20:28 03/09/22 12:06 Oxycodone /Acetaminophen 5-325mg Tab PO 1 tab Q6H PRN Administration Pain, Moderate (4-6) Pantoprazole Sodium 40 mg 03/12/22 15:00 03/24/22 10:28 Pantoprazole 40 Mg Tab PO 40 mg QDAC VERN Administration Polyethylene Glycol 17 gm 03/16/22 10:00 03/24/22 10:11 Polyethylene Glycol 3350 17 Gm Powder PO Not Given QDAY VERN Senna/Docusate Sodium 2 tab 03/06/22 11:00 03/24/22 10:13 Sennosides/Docusate Sodium 8.6/50 Mg Tab PO Not Given Q12H VERN Sildenafil Citrate 20 mg 03/11/22 14:00 03/23/22 20:56 Sildenafil 20 Mg Tab PO 20 mg TID VERN Administration Sodium Chloride 10 ml 03/03/22 22:00 03/24/22 10:36 Sodium Chloride 0.9% 10 Ml Flush Syringe IV 10 ml BID VERN Administration Sodium Chloride 10 ml 03/03/22 20:28 Sodium Chloride 0.9% 10 Ml Flush Syringe IV PRN PRN LINE FLUSH Torsemide 40 mg 03/17/22 10:00 03/24/22 10:08 Torsemide 10 Mg Tab PO 40 mg DAILY VERN Administration Zolpidem Tartrate 5 mg 03/22/22 22:00 Zolpidem 5 Mg Tab PO QHS PRN Sleep Nutrition/Malnutrition Assess - Dietary Evaluation Nutrition/Malnutrition Findings: Nutrition Notes Start: 03/11/22 14:05 Freq: Status: Active Protocol: Document 03/11/22 14:05 RAOUL (Rec: 03/11/22 14:21 RAOUL [id number]) Nutrition Notes Need for Assessment generated from: LOS Initial or Follow up Assessment Current Diagnosis Acute Kidney Injury,CKD(stage I-IV),Respiratory Failure, Malnutrition Other Pertinent Diagnosis HFpEF, Cor Pulmonale, UTI, Cystitis. Current Diet Cardiac -Renal- Diet (from D 03/11). Labs/Tests 03/11: BUN 108, Crea 2.5, Glu 141. Pertinent Medications 03/11: Nutritionally unremarkable. Height 5 ft 3 in Weight 134.7 kg [place] Body Weight (kg) 52.27 BMI 52.6 Intake Prior to Admission Good Weight change and time frame Pt denies having loss body weight [employer]. Weight Status Morbidly Obese Subjective/Other Information RD consult for LOS assessment. Pt's PO intake of meals has been Good (>75%) but fairly tolerated, according to ADL notes. I will prescribe renal modification to current diet to support Pt's RIN/CKD condition during LOS. Pt is on High-Flow Nasal Cannula, O2 saturation @ 96%, according to Physical Assessment History notes. Pt presents an > as signs of concern for skin risk at this time, according to Physical Assessment History notes. Percent of energy/protein needs met: Prescribed Cardiac -Renal- Diet provides for energy/ protein needs (2,230 Kcal/85 g ) during LOS. Burn Absent Trauma Absent GI Symptoms None Food Allergy Yes Skin Integrity/Comment Unspecified dryness and flakiness. Current % PO Good (75-100%) Minimum of two criteria No Fluid Accumulation N/A Reduced Pvc Loader Strength N/A (non-severe) Protein-Calorie Malnutrition N\A #1 Nutrition Diagnosis Altered nutrition-related laboratory values Etiology RIN/CKD III. As Evidenced by Signs and Symptoms 03/11: BUN 108, Crea 2.5. Is patient on ventilator? No Is Patient Ambulatory and/or Out of Bed Yes REE-([place]-St. Jeor-ambulatory/OOB) [ 3066.969 [id number]] Kcal/Kg value to use for calculation 10 Approximate Energy Requirements Using 1347 kcal/Kg Calculation Used for Recommendations Kcal/kg Additional Notes Protein: 0.6-0.8 g/Kg AdjBW; 56-75 g/day. Fluids: 1 ml/Kcal, or as per MD. Nutrition Intervention Change Diet Order: Modify to Cardiac -Renal- Diet . Goal #1 Adjust the dietary intervention to better serve Pt's needs and clinical conditions during LOS. Additional Comments Continue monitoring food tolerance, %PO intake of meals , and BM.
--- NOTE | 2022-03-24 13:22 | Progress Note ---
Assessment and Plan - Patient Problems (1) Interstitial edema Current Visit: Yes Status: Acute Plan to address problem: 71-year-old woman with morbid obesity, obstructive sleep apnea, hypertension, presents with shortness of breath and chest x-ray evidence of mild to moderate interstitial edema. Previous invasive cardiac work-up 10 years ago showed no significant coronary artery disease. Prior left ventricular systolic function assessment was well-preserved at 50%. Echocardiogram on this presentation demonstrates well-preserved left ventricular systolic function. Major finding on the echocardiogram is the presence of severe cor pulmonale with dilated right heart chambers, moderate to severe tricuspid regurgitation and severe pulmonary hypertension with pulmonary artery systolic pressures approaching systemic levels. Chronic lung disease appears to be primary etiology for dyspnea, respiratory insufficiency and hypoxemia. Subjective Date of service: 03/24/22 Principal diagnosis: Hypoxic respiratory failure Interval history: Patient is comfortable, no cardiac complaints, no new cardiac events reported. Objective Vital Signs Temp Pulse Resp BP Pulse Ox 03/24/22 10:00 100 03/24/22 08:08 98.2 F 66 121/71 100 03/24/22 08:00 96 03/24/22 07:50 68 26 H 99 03/24/22 04:04 97.4 F L 73 16 119/59 99 03/24/22 02:00 71 21 99 03/24/22 00:02 75 03/23/22 23:35 97.6 F 77 16 105/56 94 03/23/22 22:00 97 03/23/22 21:24 95 03/23/22 20:31 98.3 F 83 18 130/60 89 03/23/22 20:02 81 03/23/22 15:57 98.4 F 94 H 18 120/68 93 - Physical Examination General: No Apparent Distress, Other (obesity) HEENT: Positive: PERRL Neck: Positive: neck supple Cardiac: Positive: Reg Rate and Rhythm Lungs: Positive: Decreased Breath Sounds Neuro: Positive: Grossly Intact Abdomen: Positive: Soft Skin: Positive: Clear Extremities: Present: edema (Minimal) - Labs and Meds CBC 03/24/22 Range/Units 09:02 WBC 18.8 H (4.5-11.0) K/mm3 RBC 5.32 H (3.65-5.03) M/mm3 Hgb 15.2 H (10.1-14.3) gm/dl Hct 47.0 H (30.3-42.9) % Plt Count 154 (140-440) K/mm3 Comprehensive Metabolic Panel 03/23/22 03/24/22 Range/Units 12:02 09:02 Sodium 142 144 (137-145) mmol/L Potassium 4.9 5.4 H (3.6-5.0) mmol/L Chloride 95.3 L 97.4 L (98-107) mmol/L Carbon Dioxide 27 30 (22-30) mmol/L BUN 164 H 166 H (7-17) mg/dL Creatinine 2.9 H 2.8 H (0.6-1.2) mg/dL Glucose 162 H 90 (65-100) mg/dL Calcium 9.0 9.1 (8.4-10.2) mg/dL - Imaging and Cardiology EKG: report reviewed (Sinus tachycardia no acute ST-T wave changes) - Allied health notes Allied health notes reviewed: nursing
[2022-03-24] MEDS: SILDENAFIL 20 MG TAB PO SCH ×3 (14:17→21:41)
--- NOTE | 2022-03-24 14:31 | Progress Note ---
Assessment and Plan Cultures: Urine culture ESBL E. coli 03/18/2022 left foot wound culture: Proteus mirabilis, GNR A/P: 71-year-old female with CHF, severe pulmonary arterial hypertension, peripheral vascular disease, CKD with: #Left heel chronic nonhealing ulcer, x-ray with underlying osteomyelitis: Culture growing Proteus mirabilis. Etiology is pressure ulcer in association with underlying peripheral vascular disease. Revascularization is currently on hold due to elevated creatinine. X-ray shows destructive changes to her left calcaneum. She has underlying peripheral vascular disease. Given her multiple comorbidities, complete cure is going to be unlikely. For now, we have started her on IV ceftriaxone. #ESBL E. coli UTI: Completed antibiotics #RIN on CKD: Renally dose medications #Acute CHF, severe pulmonary arterial hypertension, right heart failure #Penicillin allergy Recs: -continue IV ceftriaxone, tolerating without any allergic reaction -f/u plans for LLE yarelis Melo MD, FACP, [facility] ([facility] O: [phone] F: [phone] C: [phone] Subjective Date of service: 03/24/22 Principal diagnosis: Hypoxic respiratory failure Interval history: Afebrile. Denies any complaints. Tolerating Ceftriaxone without issues. Objective - Exam Narrative Exam: Physical Exam: Constitutional: Alert, cooperative. No acute distress Head, Ears, Nose: Normocephalic, atraumatic. External ears, nose normal Eyes: Conjunctivae/corneas clear. No icterus. No ptosis. Neck: Supple, no meningeal signs Cardiovascular: S1, S2 + Respiratory: AE fair bilaterally GI: Soft, non-tender; bowel sounds normal. No peritoneal signs Musculoskeletal: Left heel dressing present, LLE with ischemic changes, cool to touch Skin: No rash or abscess Hem/Lymphatic: No palpable cervical or supraclavicular nodes. No lymphangitis Psych: Mood ok. Affect normal Neurological: Awake, alert, oriented. No gross abnormality - Constitutional Vitals: Vital Signs Temp Pulse Resp BP Pulse Ox 98.2 F 66 26 H 121/71 100 03/24/22 08:08 03/24/22 08:08 03/24/22 07:50 03/24/22 08:08 03/24/22 10:00 Temperature -Last 24 Hours Temperature 98.2 F Temperature 97.4 F Temperature 97.6 F Temperature 98.3 F Temperature 98.4 F - Labs CBC & Chem 7: 03/24/22 09:02 03/24/22 09:02 Labs: Abnormal lab results 03/23/22 03/23/22 03/24/22 Range/Units 15:59 20:36 09:02 WBC 18.8 H (4.5-11.0) K/mm3 RBC 5.32 H (3.65-5.03) M/mm3 Hgb 15.2 H (10.1-14.3) gm/dl Hct 47.0 H (30.3-42.9) % RDW 16.0 H (13.2-15.2) % Potassium (3.6-5.0) mmol/L Chloride (98-107) mmol/L BUN (7-17) mg/dL Creatinine (0.6-1.2) mg/dL POC Glucose 250 H 256 H (70-105) mg/dL 03/24/22 03/24/22 Range/Units 09:02 11:19 WBC (4.5-11.0) K/mm3 RBC (3.65-5.03) M/mm3 Hgb (10.1-14.3) gm/dl Hct (30.3-42.9) % RDW (13.2-15.2) % Potassium 5.4 H (3.6-5.0) mmol/L Chloride 97.4 L (98-107) mmol/L BUN 166 H (7-17) mg/dL Creatinine 2.8 H (0.6-1.2) mg/dL POC Glucose 222 H (70-105) mg/dL
[2022-03-25] MEDS: SENNOSIDES/DOCUSATE SODIUM 8.6/50 MG TAB PO SCH ×2 (04:26→10:28)
[2022-03-25] MEDS: HEPARIN 5,000 UNIT/1 ML VIAL SUB-Q SCH ×2 (06:23→17:28)
[2022-03-25] MEDS: INSULIN REGULAR, HUMAN 100 UNITS/1 ML SUB-Q SCH ×3 (08:16→17:27)
[2022-03-25] MEDS: SILDENAFIL 20 MG TAB PO SCH ×2 (09:28→17:27)
[2022-03-25] MEDS: TORSEMIDE 10 MG TAB PO SCH (09:28)
[2022-03-25] MEDS: guaiFENesin ER 600 MG TAB PO SCH (09:28)
[2022-03-25] MEDS: GABAPENTIN 300 MG CAP PO SCH (09:28)
[2022-03-25] MEDS: CETIRIZINE 10 MG TAB PO SCH (09:28)
[2022-03-25] MEDS: PANTOPRAZOLE 40 MG TAB PO SCH (09:29)
[2022-03-25] MEDS: INSULIN NPH/REGULAR 70/30 INJ SUB-Q SCH (09:30)
[2022-03-25] MEDS: FLUTICASONE PROPIONATE NASAL SPRAY 16 GM NS SCH (09:30)
[2022-03-25] MEDS: POLYETHYLENE GLYCOL 3350 17 GM POWDER PO SCH (09:31)
[2022-03-25] MEDS: cefTRIAXone/NS 2 GM/100 ML 2 GM/100 ML BAG IV SCH (09:44)
[2022-03-25] MEDS ORDERED: predniSONE 20 MG TAB PO SCH (10:00)
--- NOTE | 2022-03-25 11:30 | Progress Note ---
Assessment and Plan Cultures: Urine culture ESBL E. coli 03/18/2022 left foot wound culture: Proteus mirabilis, GNR A/P: 71-year-old female with CHF, severe pulmonary arterial hypertension, peripheral vascular disease, CKD with: #Left heel chronic nonhealing ulcer, x-ray with underlying osteomyelitis: Culture growing Proteus mirabilis. Etiology is pressure ulcer in association with underlying peripheral vascular disease. Revascularization is currently on hold due to elevated creatinine. X-ray shows destructive changes to her left calcaneum. She has underlying peripheral vascular disease. Given her multiple comorbidities, complete cure is going to be unlikely. For now, we have started her on IV ceftriaxone. #ESBL E. coli UTI: Completed antibiotics #RIN on CKD: Renally dose medications #Acute CHF, severe pulmonary arterial hypertension, right heart failure #Penicillin allergy Recs: -noted plans for likely discharge on hospice. No benefit with continued abx since it will not provide any comfort. Would manage wound with wound care and offloading as possible. Arabella Melo MD, FACP, [facility] ([facility]) O: [phone] F: [phone] C: [phone] Subjective Date of service: 03/25/22 Principal diagnosis: Hypoxic respiratory failure Interval history: Afebrile. Denies any complaints. Likely getting discharged today on hospice. Objective - Exam Narrative Exam: Physical Exam: Constitutional: Alert, cooperative. No acute distress Head, Ears, Nose: Normocephalic, atraumatic. External ears, nose normal Eyes: Conjunctivae/corneas clear. No icterus. No ptosis. Neck: Supple, no meningeal signs Cardiovascular: S1, S2 + Respiratory: AE fair bilaterally GI: Soft, non-tender; bowel sounds normal. No peritoneal signs Musculoskeletal: Left heel dressing present, LLE with ischemic changes, cool to touch Skin: No rash or abscess Hem/Lymphatic: No palpable cervical or supraclavicular nodes. No lymphangitis Psych: Mood ok. Affect normal Neurological: Awake, alert, oriented. No gross abnormality - Constitutional Vitals: Vital Signs Temp Pulse Resp BP Pulse Ox 98.6 F 67 18 103/58 94 03/25/22 07:38 03/25/22 07:38 03/25/22 04:08 03/25/22 07:38 03/25/22 10:00 Temperature -Last 24 Hours Temperature 98.6 F Temperature 97.6 F Temperature 98.1 F Temperature 98.1 F Temperature 98.3 F - Labs CBC & Chem 7: 03/24/22 09:02 03/24/22 09:02 Labs: Abnormal lab results 03/24/22 03/24/22 03/25/22 Range/Units 16:27 20:52 07:37 POC Glucose 233 H 327 H 119 H (70-105) mg/dL
--- NOTE | 2022-03-25 12:12 | Discharge Summary ---
Providers - Providers Date of Admission: 03/03/22 20:28 Date of discharge: 03/25/22 Attending physician: ANN WHITESIDE MD 03/04/22 07:05 Consult to Physician [CONS] Routine Comment: Consulting Provider: JAVI MONTELONGO Physician Instructions: Reason For Exam: chf 03/04/22 07:28 Consult to Physician [CONS] Routine Comment: Consulting Provider: GARRET REESE Physician Instructions: Reason For Exam: RIN 03/04/22 15:39 Consult to Physician [CONS] Routine Comment: Consulting Provider: KUMAR FLORES Physician Instructions: Reason For Exam: Severe pulmonary hypertension + resp. failure 03/06/22 16:51 Consult to Physician [CONS] Routine Comment: Consulting Provider: LINDSEY SOLORZANO Physician Instructions: Reason For Exam: ESBL UTI 03/16/22 09:41 Consult to Wound/ET Nurse [CONS] Routine Reason For Exam: wound eval 03/16/22 09:48 Consult to Physician [CONS] Routine Comment: Consulting Provider: CORNELIUS ROCHE Physician Instructions: Reason For Exam: Concern for osteo of L heel 03/16/22 16:34 Consult to Physician [CONS] Routine Comment: Consulting Provider: LINDSEY SOLORZANO Physician Instructions: Reason For Exam: Concern for chronic osteo of L heel 03/18/22 07:39 Physical Therapy For [facility] [CONS] Routine Reason For Exam: Deconditioning- possible LTAC placement 03/18/22 08:27 Consult to Physician [CONS] Routine Comment: Consulting Provider: JONAS BIRCH Physician Instructions: Reason For Exam: occluded L femoral bypass Primary care physician: PENCIL SORTER Hospitalization Reason for admission: acute on chronic respiratory failure Condition: Stable Hospital course: Patient is a 71-year-old female with history of CHF and chronic respiratory failure requiring oxygen who presented with increasing shortness of breath. She was also found to have RIN. Nephrology and cardiology were consulted. Echocardiogram showed LVEF of 50 to 55%, severely reduced right ventricular systolic function, and severe pulmonary hypertension. Pulmonology was consulted for further care. Bilateral lower extremity Dopplers were negative for DVT. Patient respiratory status continued to decline as well as her renal function. V/q. scan showed low probability for pulmonary embolism. Patient was started on high flow nasal cannula and was eventually weaned down to 4 L nasal cannula. She was started on sildenafil and steroids which helped to improve her respiratory status. She was evaluated for intervention for her chronic left heel ulcer. X-ray of the foot was concerning for chronic osteomyelitis. She was started on empiric therapy and infectious disease was consulted. Infectious disease recommended discontinuation of antibiotics due to chronicity. Vascular surgery consulted and arterial gram was unable to be performed due to renal function. Once she was stable, she was discharged home with instructions to follow-up with pulmonology, nephrology and vascular surgery. Disposition: 01 HOME / SELF CARE / HOMELESS Final Discharge Diagnosis (Prints w/discharge instructions): Severe pulmonary arterial hypertension. Acute on chronic hypoxic respiratory failure. Chronic left foot ulcer. Acute on chronic diastolic heart failure. Cor pulmonale. leukocytosis. Cystitis without hematuria secondary to ESBL bacteria. Atypical chest pain. Acute kidney injury on chronic kidney disease stage III. Mild protein calorie malnutrition. Morbid obesity Time spent for discharge: 44 minutes Core Measure Documentation - Palliative Care Palliative Care/ Comfort Measures: Hospice Care - Core Measures Any of the following diagnoses?: heart failure - Heart Failure Discharge Requirements BRUNA/ARB for LVSD if EF <40%: Not Applicable Beta rosalinda at discharge: No Reason for no beta rosalinda on DC: Medical contraindication (R sided heart failure, pulmonary HTN) Exam - Physical Exam Narrative exam: GENERAL: Obese woman. In no acute distress. HEENT: Nasal cannula 5 L/min. CHEST/LUNGS: Prolonged expiratory phase, otherwise CTAB. HEART/CARDIOVASCULAR: RRR. No murmur, rubs or gallops appreciated. ABDOMEN: +BS. NT/ND. NEURO: No focal motor deficit. Follows all commands. EXTREMITIES: BLE chronic venous stasis changes. No clubbing or edema. Left lower extremity ulcer at heel without drainage. PSYCH: Cooperative. - Constitutional Vitals: Temp Pulse Resp BP Pulse Ox 98.3 F 70 18 109/66 95 03/25/22 11:27 03/25/22 11:27 03/25/22 04:08 03/25/22 11:27 03/25/22 11:27 Plan Care Plan Goals: Please follow-up with your primary care provider. Please make an appointment with the kidney specialist in a week. Please follow-up with Dr. Flores in the pulmonology clinic. As discussed you will be taking a prolonged steroid taper to help with your lungs. You will take 60mg of prednisone for the next 4 days, on the fifth day you will begin taking 40 mg for 5 days, then you will take 20 mg for 5 days and then 10 mg indefinitely. Continue to care for your left foot wound. The infectious disease specialist does not feel as though you require antibiotics due to the low likelihood of curing the bone infection. Please schedule an appointment with the vascular surgeons in the next 1 to 2 weeks should you decide that you would like to move forward with procedures for your left foot. Follow up with: KUMAR FLORES MD [Staff Physician] - 14 Days KYLER HERNANDEZ DO [Staff Physician] - 7 Days PRIMARY CAREMD [Primary Care Provider] - 7 Days JONAS BIRCH MD [Staff Physician] - 14 Days Prescriptions: Gabapentin 300 mg PO BID 30 Days #60 capsule predniSONE 10 mg PO QDAY 90 Days #126 tab Pantoprazole [Protonix TAB] 40 mg PO QDAC 30 Days #30 tablet Sildenafil [Revatio] 20 mg PO TID 30 Days #90 tablet Torsemide [Soaanz] 40 mg PO QDAY 30 Days #30 tab
[2022-03-25 13:27] LABS: Calcium 9.1 mg/dL (8.4-10.2)
--- NOTE | 2022-03-25 13:41 | Progress Note ---
Assessment and Plan 71 y/o female with severe pulm htn and Eliseo with acute on chronic respiratory failure. 03/25/22: No objection to discharge. Please continue with pulmonary taper and continue sildenafil as outpatient. If she is going on hospice for pulm HTN, doubt she will get outpatient RHC. Ok to follow up with our office if hospice allows. 03/24/22: Now on 4 liters. NIV therapy at night and PRN. Same steroid taper. Needs RHC at some point. Hopeful discharge soon. 03/23/22: 5 liters is patients prior oxygen baseline. Will need prolonged stero id taper and suggest the followin daily for 5 days, 40 daily for 5 days, 20 daily for 5 days and then 10mg daily indefinitely until she can follow up with either us or her PCP. Still would benefit from RHC but doubt this will happen prior to discharge. Will continue to follow. 03/22/22: Dropped steroids to daily today. Continue sildenafil. Patient still needs RHC, most likely this would have to happen as an outpatient. She is not a candidate for surgery given her degree of Pulm HTN. I do not recommend general anesthesia for her at this time. Especially without a right heart cath knowing what her true numbers are. If able to get to her baseline flow, hopeful discharge soon. 03/21/22: Continue to wean for sats >88%. If not mistaken, baseline flow at home was 5. Continue sildenafil. Will drop steroids tomorrow. 03/20/22: H/H was stable. continue sildenafil. Continue to wean FiO2 as tolerated. Still needs RHC. Overall prognosis is guarded to poor. Will consider decreasing steroids tomorrow if she can maintain on 7 liters. 03/18/22: consider checking CBC with diff. Continue Sildenafil for now. Needs RHC to assess if true Type 1 Pulm HTN. Overall prognosis is guarded to poor. 03/17/22: Given increase in O2 requirement, will hold on dropping steroids today. Otherwise, same recs as the day before. 03/16/22: Will drop steroids to daily starting tomorrow. Continue TID Sildenafil. Reviewed Social work note. There is no debate about therapy. The only safe thing that can be administered at this time is sildenafil three times daily which she is tolerating. No further therapy would be started without RHC number. I reviewed a CM note from 2 days prior that states [facility] would be willing to accept what is documented as 30 liters of flow. Patient is now on 20. Would continue daily net negative state as long as blood pressure and renal function will allow. Continue to wean FiO2 as tolerated for sats >88% 03/15/22: Decreased steroids to BID. Continue Sildenafil at current dosing. Continue daily net negative state if possible and wean FiO2 for sats >88%. Still feel patient would benefit from right and left heart cath if able to be weaned off HFNC and able to lie flat. 03/09/22: Without an exact cause for her Pulm HTN, would be difficult to say if there is anything else that could be done for her severe pulm HTN. If this is truly worsening of lung disease, given the rate that it has happened, even treatment of COPD would not improve quality of life significantly. If she has developed type 1 pulmonary HTN, she would need at least 2-3 drug therapy and she may not tolerate this as well given her age and current clinical status. A right and left heart cath would be necessary before determination of this degree of therapy. Do not disagree with hospice referral again. Has been on steroid therapy less than 24 hours. Would continue to see if any benefit. Prognosis still remains guarded. 03/08/22: Last time this patient was seen in our office was 2015. At that time she only had mild COPD. Unable to obtain repeat divina at this time. She did not smoke since being on hospice care and was recently discharged secondary to lack of further decline (although one could argue for it now). Will attempt steroid therapy to see if this improves oxygen requirement, however as stated earlier, patient may benefit from right heart cath with drug study if no improvement on steroids. V/Q done but was not ordered looking for acute PE but more for concern for CTEPH. Guarded prognosis. 03/07/22: No new recs. Will find old office notes today to see the last time we saw this patient. 03/06/22: CXR read by rads suggest unchanged edema. Agree with continued diuresis and fluid restriction. Wean Vent for sats >88%. Continue NIV therapy at night 1. Cardiology following. This degree of Pulm HTN is not seen with just ELISEO alone, especially in someone who is compliant with therapy. Defer to cards but would consider right heart cath if not already done previously 2. Continue bipap therapy at night as well as PRN during the day. Patient does not know her settings for her machine at home and my office did not manipulate these numbers last. Will titrate sat of >88% and comfort 3. Agree with continued diuresis, CXR shows continued vascular congestion, maybe slightly better, maybe 4. Wean FiO2 for sats >88% Subjective Date of service: 03/25/22 Principal diagnosis: Hypoxic respiratory failure Interval history: Patient being discharged today. Appears discharging with hospice. respiratory status stable on 4 liters that she was weaned to yesterday. Prior to admission and illness her baseline flow was 5 Objective Vital Signs - 12hr 03/25/22 03/25/22 03/25/22 04:08 07:38 09:35 Temperature 97.6 F 98.6 F Pulse Rate 68 67 Respiratory 18 Rate Blood Pressure 119/65 103/58 O2 Sat by Pulse 99 100 98 Oximetry 03/25/22 03/25/22 10:00 11:27 Temperature 98.3 F Pulse Rate 70 Respiratory Rate Blood Pressure 109/66 O2 Sat by Pulse 94 95 Oximetry Constitutional: no acute distress, alert, other (obese) Eyes: non-icteric ENT: oropharynx moist Neck: supple, other (obese) Effort: mildly labored Ascultation: Bilateral: diminished breath sounds, rales Percussion: Bilateral: not dull Cardiovascular: regular rate and rhythm (no mrg) Gastrointestinal: normoactive bowel sounds, soft, non-tender, non-distended Integumentary: normal Extremities: no cyanosis, no edema, pink and warm Neurologic: normal mental status, non-focal exam, pupils equal and round Psychiatric: mood appropriate, affect normal CBC and BMP: 03/24/22 09:02 03/25/22 11:34 ABG, PT/INR, D-dimer: ABG ABG pH 7.316 pH Units (7.350-7.450) L 03/11/22 10:35 ABG pCO2 54.7 mm Hg 03/11/22 10:35 ABG pO2 81.0 mm Hg (80.0-90.0) 03/11/22 10:35 ABG O2 Saturation 95.0 % (95.0-99.0) 03/11/22 10:35 Abnormal lab findings: Abnormal Labs 03/03/22 03/03/22 03/03/22 13:34 13:34 13:34 WBC RBC Hgb Hct RDW 16.1 H Lymph % (Auto) 9.7 L Lymph # (Auto) 0.8 L Seg Neutrophils % 84.6 H Seg Neuts % (Manual) Lymphocytes % (Manual) Seg Neutrophils # Man Lymphocytes # (Manual) ABG pH ABG HCO3 Oxyhemoglobin Sodium Potassium Chloride BUN 47 H Creatinine 1.7 H Glucose 101 H POC Glucose ALT NT-Pro-B Natriuret Pep 14520 H Total Protein 9.1 H Albumin 3.5 L Urine WBC (Auto) Urine Creatinine Urine Total Protein 03/04/22 03/04/22 03/04/22 02:51 03:05 17:35 WBC RBC Hgb Hct RDW 16.0 H Lymph % (Auto) 8.9 L Lymph # (Auto) 0.8 L Seg Neutrophils % 84.1 H Seg Neuts % (Manual) Lymphocytes % (Manual) Seg Neutrophils # Man Lymphocytes # (Manual) ABG pH ABG HCO3 Oxyhemoglobin Sodium Potassium Chloride BUN 46 H Creatinine 1.8 H Glucose 119 H POC Glucose ALT 6 L NT-Pro-B Natriuret Pep Total Protein 8.4 H Albumin 3.4 L Urine WBC (Auto) 11.0 H Urine Creatinine Urine Total Protein 03/04/22 03/05/22 03/05/22 17:35 12:08 15:18 WBC RBC Hgb Hct RDW Lymph % (Auto) Lymph # (Auto) Seg Neutrophils % Seg Neuts % (Manual) Lymphocytes % (Manual) Seg Neutrophils # Man Lymphocytes # (Manual) ABG pH ABG HCO3 Oxyhemoglobin Sodium Potassium 6.4 H* D Chloride BUN 55 H 55 H Creatinine 2.0 H 2.0 H Glucose 120 H 116 H POC Glucose ALT NT-Pro-B Natriuret Pep Total Protein Albumin Urine WBC (Auto) Urine Creatinine 41.2 H Urine Total Protein 16 H 03/06/22 03/08/22 03/08/22 05:25 09:44 09:44 WBC RBC Hgb Hct RDW 15.9 H Lymph % (Auto) 12.2 L Lymph # (Auto) 0.9 L Seg Neutrophils % 79.5 H Seg Neuts % (Manual) Lymphocytes % (Manual) Seg Neutrophils # Man Lymphocytes # (Manual) ABG pH ABG HCO3 Oxyhemoglobin Sodium Potassium Chloride BUN 58 H 69 H Creatinine 2.1 H 2.3 H Glucose 103 H POC Glucose ALT NT-Pro-B Natriuret Pep Total Protein Albumin Urine WBC (Auto) Urine Creatinine Urine Total Protein 03/08/22 03/09/22 03/10/22 14:36 05:43 07:16 WBC RBC Hgb Hct RDW Lymph % (Auto) Lymph # (Auto) Seg Neutrophils % Seg Neuts % (Manual) Lymphocytes % (Manual) Seg Neutrophils # Man Lymphocytes # (Manual) ABG pH ABG HCO3 Oxyhemoglobin Sodium Potassium 5.3 H D Chloride BUN 70 H 82 H 95 H Creatinine 2.4 H 2.5 H 2.3 H Glucose 125 H 149 H 141 H POC Glucose ALT NT-Pro-B Natriuret Pep Total Protein Albumin Urine WBC (Auto) Urine Creatinine Urine Total Protein 03/11/22 03/11/22 03/12/22 06:44 10:35 06:27 WBC RBC Hgb Hct RDW Lymph % (Auto) Lymph # (Auto) Seg Neutrophils % Seg Neuts % (Manual) Lymphocytes % (Manual) Seg Neutrophils # Man Lymphocytes # (Manual) ABG pH 7.316 L ABG HCO3 27.3 H Oxyhemoglobin 94.0 L Sodium Potassium Chloride BUN 108 H 113 H Creatinine 2.5 H 2.4 H Glucose 141 H 216 H POC Glucose ALT NT-Pro-B Natriuret Pep Total Protein Albumin Urine WBC (Auto) Urine Creatinine Urine Total Protein 03/13/22 03/14/22 03/15/22 10:19 09:26 07:37 WBC RBC Hgb Hct RDW Lymph % (Auto) Lymph # (Auto) Seg Neutrophils % Seg Neuts % (Manual) Lymphocytes % (Manual) Seg Neutrophils # Man Lymphocytes # (Manual) ABG pH ABG HCO3 Oxyhemoglobin Sodium 136 L Potassium Chloride 97.3 L BUN 121 H 131 H 134 H Creatinine 2.4 H 2.6 H 2.5 H Glucose 279 H 146 H 156 H POC Glucose ALT NT-Pro-B Natriuret Pep Total Protein Albumin Urine WBC (Auto) Urine Creatinine Urine Total Protein 03/16/22 03/17/22 03/18/22 05:19 04:00 23:15 WBC 18.4 H RBC 5.22 H Hgb 14.9 H Hct 47.7 H RDW 15.9 H Lymph % (Auto) Lymph # (Auto) Seg Neutrophils % Seg Neuts % (Manual) 94.0 H Lymphocytes % (Manual) 2.0 L Seg Neutrophils # Man 17.3 H Lymphocytes # (Manual) 0.4 L ABG pH ABG HCO3 Oxyhemoglobin Sodium Potassium Chloride BUN 135 H 129 H Creatinine 2.5 H 2.2 H Glucose 147 H 182 H POC Glucose ALT NT-Pro-B Natriuret Pep Total Protein Albumin Urine WBC (Auto) Urine Creatinine Urine Total Protein 03/20/22 03/20/22 03/20/22 05:14 11:33 15:11 WBC RBC Hgb Hct RDW Lymph % (Auto) Lymph # (Auto) Seg Neutrophils % Seg Neuts % (Manual) Lymphocytes % (Manual) Seg Neutrophils # Man Lymphocytes # (Manual) ABG pH ABG HCO3 Oxyhemoglobin Sodium 136 L Potassium Chloride 97.6 L BUN 133 H Creatinine 2.6 H Glucose 239 H POC Glucose 400 H 287 H ALT NT-Pro-B Natriuret Pep Total Protein Albumin Urine WBC (Auto) Urine Creatinine Urine Total Protein 03/20/22 03/20/22 03/21/22 15:54 20:29 05:47 WBC 20.9 H RBC 5.10 H Hgb 14.5 H Hct 45.9 H RDW 15.7 H Lymph % (Auto) Lymph # (Auto) Seg Neutrophils % Seg Neuts % (Manual) 94.0 H Lymphocytes % (Manual) 3.0 L Seg Neutrophils # Man 19.6 H Lymphocytes # (Manual) 0.6 L ABG pH ABG HCO3 Oxyhemoglobin Sodium Potassium Chloride BUN Creatinine Glucose POC Glucose 242 H 207 H ALT NT-Pro-B Natriuret Pep Total Protein Albumin Urine WBC (Auto) Urine Creatinine Urine Total Protein 03/21/22 03/21/22 03/21/22 05:47 07:57 12:16 WBC RBC Hgb Hct RDW Lymph % (Auto) Lymph # (Auto) Seg Neutrophils % Seg Neuts % (Manual) Lymphocytes % (Manual) Seg Neutrophils # Man Lymphocytes # (Manual) ABG pH ABG HCO3 Oxyhemoglobin Sodium Potassium Chloride BUN 140 H Creatinine 2.6 H Glucose 136 H POC Glucose 125 H 169 H ALT NT-Pro-B Natriuret Pep Total Protein Albumin Urine WBC (Auto) Urine Creatinine Urine Total Protein 03/21/22 03/21/2203/22/22 16:14 20:19 08:11 WBC RBC Hgb Hct RDW Lymph % (Auto) Lymph # (Auto) Seg Neutrophils % Seg Neuts % (Manual) Lymphocytes % (Manual) Seg Neutrophils # Man Lymphocytes # (Manual) ABG pH ABG HCO3 Oxyhemoglobin Sodium Potassium Chloride BUN Creatinine Glucose POC Glucose 153 H 204 H 156 H ALT NT-Pro-B Natriuret Pep Total Protein Albumin Urine WBC (Auto) Urine Creatinine Urine Total Protein 03/22/22 03/22/22 03/22/22 12:17 16:25 21:12 WBC RBC Hgb Hct RDW Lymph % (Auto) Lymph # (Auto) Seg Neutrophils % Seg Neuts % (Manual) Lymphocytes % (Manual) Seg Neutrophils # Man Lymphocytes # (Manual) ABG pH ABG HCO3 Oxyhemoglobin Sodium Potassium Chloride BUN Creatinine Glucose POC Glucose 157 H 202 H 203 H ALT NT-Pro-B Natriuret Pep Total Protein Albumin Urine WBC (Auto) Urine Creatinine Urine Total Protein 03/23/22 03/23/22 03/23/22 07:25 11:39 12:02 WBC 19.9 H RBC 5.23 H Hgb 14.9 H Hct 46.9 H RDW 15.8 H Lymph % (Auto) Lymph # (Auto) Seg Neutrophils % Seg Neuts % (Manual) Lymphocytes % (Manual) Seg Neutrophils # Man Lymphocytes # (Manual) ABG pH ABG HCO3 Oxyhemoglobin Sodium Potassium Chloride BUN Creatinine Glucose POC Glucose 107 H 162 H ALT NT-Pro-B Natriuret Pep Total Protein Albumin Urine WBC (Auto) Urine Creatinine Urine Total Protein 03/23/22 03/23/22 03/23/22 12:02 15:59 20:36 WBC RBC Hgb Hct RDW Lymph % (Auto) Lymph # (Auto) Seg Neutrophils % Seg Neuts % (Manual) Lymphocytes % (Manual) Seg Neutrophils # Man Lymphocytes # (Manual) ABG pH ABG HCO3 Oxyhemoglobin Sodium Potassium Chloride 95.3 L BUN 164 H Creatinine 2.9 H Glucose 162 H POC Glucose 250 H 256 H ALT NT-Pro-B Natriuret Pep Total Protein Albumin Urine WBC (Auto) Urine Creatinine Urine Total Protein 03/24/22 03/24/22 03/24/22 09:02 09:02 11:19 WBC 18.8 H RBC 5.32 H Hgb 15.2 H Hct 47.0 H RDW 16.0 H Lymph % (Auto) Lymph # (Auto) Seg Neutrophils % Seg Neuts % (Manual) Lymphocytes % (Manual) Seg Neutrophils # Man Lymphocytes # (Manual) ABG pH ABG HCO3 Oxyhemoglobin Sodium Potassium 5.4 H Chloride 97.4 L BUN 166 H Creatinine 2.8 H Glucose POC Glucose 222 H ALT NT-Pro-B Natriuret Pep Total Protein Albumin Urine WBC (Auto) Urine Creatinine Urine Total Protein 03/24/22 03/24/22 03/25/22 16:27 20:52 07:37 WBC RBC Hgb Hct RDW Lymph % (Auto) Lymph # (Auto) Seg Neutrophils % Seg Neuts % (Manual) Lymphocytes % (Manual) Seg Neutrophils # Man Lymphocytes # (Manual) ABG pH ABG HCO3 Oxyhemoglobin Sodium Potassium Chloride BUN Creatinine Glucose POC Glucose 233 H 327 H 119 H ALT NT-Pro-B Natriuret Pep Total Protein Albumin Urine WBC (Auto) Urine Creatinine Urine Total Protein 03/25/22 03/25/22 11:27 11:34 WBC RBC Hgb Hct RDW Lymph % (Auto) Lymph # (Auto) Seg Neutrophils % Seg Neuts % (Manual) Lymphocytes % (Manual) Seg Neutrophils # Man Lymphocytes # (Manual) ABG pH ABG HCO3 Oxyhemoglobin Sodium Potassium Chloride 91.3 L BUN Creatinine 2.6 H Glucose 193 H POC Glucose 223 H ALT NT-Pro-B Natriuret Pep Total Protein Albumin Urine WBC (Auto) Urine Creatinine Urine Total Protein Allied health notes reviewed: nursing
--- NOTE | 2022-03-25 14:08 | Progress Note ---
Assessment and Plan - Patient Problems (1) Interstitial edema Current Visit: Yes Status: Acute Plan to address problem: 71-year-old woman with morbid obesity, obstructive sleep apnea, hypertension, presents with shortness of breath and chest x-ray evidence of mild to moderate interstitial edema. Previous invasive cardiac work-up 10 years ago showed no significant coronary artery disease. Prior left ventricular systolic function assessment was well-preserved at 50%. Echocardiogram on this presentation demonstrates well-preserved left ventricular systolic function. Major finding on the echocardiogram is the presence of severe cor pulmonale with dilated right heart chambers, moderate to severe tricuspid regurgitation and severe pulmonary hypertension with pulmonary artery systolic pressures approaching systemic levels. Chronic lung disease appears to be primary etiology for dyspnea, respiratory insufficiency and hypoxemia. Subjective Date of service: 03/25/22 Principal diagnosis: Hypoxic respiratory failure Interval history: Patient is comfortable, no cardiac complaints, no new cardiac events reported. Objective Vital Signs Temp Pulse Resp BP Pulse Ox 03/25/22 11:27 98.3 F 70 109/66 95 03/25/22 10:00 94 03/25/22 09:35 98 03/25/22 07:38 98.6 F 67 103/58 100 03/25/22 04:08 97.6 F 68 18 119/65 99 03/25/22 00:18 76 22 97 03/25/22 00:15 95 03/25/22 00:09 79 03/24/22 23:08 98.1 F 19 136/71 03/24/22 22:00 94 03/24/22 20:15 83 03/24/22 19:26 98.1 F 79 18 112/68 94 03/24/22 15:52 98.3 F 84 119/72 92 - Physical Examination General: No Apparent Distress, Other (obesity) HEENT: Positive: PERRL Neck: Positive: neck supple Cardiac: Positive: Irregularly Regular Lungs: Positive: Decreased Breath Sounds Neuro: Positive: Grossly Intact Abdomen: Positive: Soft Skin: Positive: Clear Extremities: Present: edema (Minimal) - Labs and Meds Comprehensive Metabolic Panel 03/25/22 Range/Units 11:34 Sodium 138 (137-145) mmol/L Potassium 5.0 (3.6-5.0) mmol/L Chloride 91.3 L (98-107) mmol/L Carbon Dioxide 27 (22-30) mmol/L BUN 162 H (7-17) mg/dL Creatinine 2.6 H (0.6-1.2) mg/dL Glucose 193 H (65-100) mg/dL Calcium 9.1 (8.4-10.2) mg/dL - Imaging and Cardiology EKG: report reviewed (Sinus tachycardia no acute ST-T wave changes) - Allied health notes Allied health notes reviewed: nursing
--- NOTE | 2022-03-25 15:02 | Event Note ---
Date: 03/25/22 Patient's renal status continues to fluctuate. At this point an arteriogram is likely to result in further kidney damage which would lead to the need for hemodialysis. Nephrology has recommended avoiding nephrotoxic medications which would include the contrast necessary for an arteriogram with adequate treatment given the patient's tibial disease. The patient can follow-up in the outpatient setting and depending on her renal status at that time be set up for an arteriogram to improve the flow to her left lower extremity.
--- NOTE | 2022-03-25 16:50 | Progress Note ---
Assessment and Plan - Patient Problems (1) Acute kidney injury superimposed on chronic kidney disease Current Visit: Yes Status: Acute Plan to address problem: Overall renal function remained stable at present time. Continue to avoid nephrotoxins and maintain mean arterial pressures above 65 mmHg. We will continue to monitor closely at this time. Agree with vascular surgery that as we continue to stabilize her renal function, we should avoid any potential contrast induced injury and consider further vascular workup as an outpatient when her renal function stabilizes further to her baseline. From renal standpoint, she is otherwise stable for DC. She needs to f/u with us in ~1-2 weeks post dc. (2) Acute exacerbation of congestive heart failure Current Visit: Yes Status: Acute Qualifiers: Heart failure type: combined systolic and diastolic Qualified Code(s): I50.43 - Acute on chronic combined systolic (congestive) and diastolic (congestive) heart failure Plan to address problem: Transition to oral torsemide regimen with adequate urine output noted. Respiratory status is also starting to show improvement as her oxygen requirements have started to decrease. Cardiology evaluation and recommendations reviewed. Counseled on appropriate fluid and sodium restriction. (3) Acute respiratory failure with hypoxia Current Visit: Yes Status: Acute Plan to address problem: Pulmonology recommendations reviewed. Oxygen requirements are starting to decrease. She remains on IV steroids which likely is also contributing to her elevated BUN levels. She does not have any symptoms concerning for uremia at present time therefore there is no need for renal replacement therapy. (4) Hypertensive chronic kidney disease with stage 1 through stage 4 chronic kidney disease, or unspecified chronic kidney disease Current Visit: Yes Status: Chronic Plan to address problem: Continue to monitor patient's blood pressures on current regimen. (5) Urinary tract infection due to ESBL Klebsiella Current Visit: Yes Status: Acute Plan to address problem: Patient has completed course of antibiotics. Asymptomatic at present time. Subjective Principal diagnosis: Hypoxic respiratory failure Interval history: No acute changes. Renal function stable this am. Objective - Vital Signs Vital signs: Vital Signs - 12hr 03/25/22 03/25/22 03/25/22 07:38 09:35 10:00 Temperature 98.6 F Pulse Rate 67 Blood Pressure 103/58 O2 Sat by Pulse 100 98 94 Oximetry 03/25/22 03/25/22 11:27 15:54 Temperature 98.3 F 98.2 F Pulse Rate 70 81 Blood Pressure 109/66 110/54 O2 Sat by Pulse 95 94 Oximetry - General Appearance General appearance: appears stated age EENT: ATNC Neck: no JVD Respiratory: Present: Clear to Ascultation Cardiology: regular Gastrointestinal: normal Integumentary: warm and dry Neurologic: no focal deficit Musculoskeletal: deferred Psychiatric: cooperative - Lab 03/24/22 09:02 03/25/22 11:34 Most recent lab results ABG pH 7.316 pH Units (7.350-7.450) L 03/11/22 10:35 ABG pCO2 54.7 mm Hg 03/11/22 10:35 ABG pO2 81.0 mm Hg (80.0-90.0) 03/11/22 10:35 ABG HCO3 27.3 mmol/L (20.0-26.0) H 03/11/22 10:35 ABG O2 Saturation 95.0 % (95.0-99.0) 03/11/22 10:35 Calcium 9.1 mg/dL (8.4-10.2) 03/25/22 11:34 Urine Creatinine 41.2 mg/dL (0.1-20.0) H 03/04/22 17:35 Urine Sodium 126 mmol/L 03/04/22 17:35 Urine Total Protein 16 mg/dL (5-11.8) H 03/04/22 17:35 - Allied health notes Allied health notes reviewed: nursing Medications & Allergies - Medications Allergies/Adverse Reactions: Allergies iodine Allergy (Verified 03/03/22 12:49) Anaphylaxis Penicillins Allergy (Verified 03/03/22 12:49) Anaphylaxis shellfish derived Allergy (Verified 03/03/22 12:49) Anaphylaxis Home Medications: Home Medications Medication Instructions Recorded Confirmed Last Taken Type Acetaminophen [Non-Aspirin Extra 500 mg PO Q8HR PRN 03/04/22 03/04/22 03/01/22 History Strength] Hydrocodone-Acetamin 2.5-325 5 - 325 mg PO Q6HR PRN 03/04/22 03/04/22 03/02/22 History Phenazopyridine 200 mg PO TID 03/04/22 03/04/22 03/03/22 History Senna Plus Tablet 8.6 - 50 mg PO BID MDD CONSTIPATION 03/04/22 03/05/22 03/02/22 History Diclofenac Sodium ER 75 mg PO Q8HR 03/05/22 03/05/22 03/02/22 History Vitamin D3 25 mg PO DAILY 03/05/22 03/05/22 03/02/22 History Gabapentin 300 mg PO BID 30 Days #60 capsule 03/25/22 Unknown Rx Pantoprazole [Protonix TAB] 40 mg PO QDAC 30 Days #30 tablet 03/25/22 Unknown Rx Sildenafil [Revatio] 20 mg PO TID 30 Days #90 tablet 03/25/22 Unknown Rx Torsemide [Soaanz] 40 mg PO QDAY 30 Days #30 tab 03/25/22 Unknown Rx predniSONE 10 mg PO QDAY 90 Days #126 tab 03/25/22 Unknown Rx Active Medications: Generic Name Dose Route Start Last Admin Trade Name Freq PRN Reason Stop Dose Admin Acetaminophen 650 mg 03/03/22 20:28 03/15/22 09:14 Acetaminophen 325 Mg Tab PO 650 mg Q4H PRN Administration Pain MILD(1-3)/Fever >100.5/HOFFMAN Cetirizine HCl 10 mg 03/12/22 15:00 03/25/22 09:28 Cetirizine 10 Mg Tab PO 10 mg QDAY VERN Administration Dextrose 50 ml 03/20/22 09:46 Dextrose 50% In Water (25gm) 50 Ml Syringe IV Q30MIN PRN Hypoglycemia Protocol Fluticasone Propionate 200 mcg 03/13/22 20:00 03/25/22 09:30 Fluticasone Propionate Nasal [place] 16 Gm NS 200 mcg QDAY VERN Administration Gabapentin 300 mg 03/22/22 22:00 03/25/22 09:28 Gabapentin 300 Mg Cap PO 300 mg BID VERN Administration Guaifenesin 600 mg 03/12/22 15:00 03/25/22 09:28 Guaifenesin Er 600 Mg Tab PO 600 mg BID VERN Administration Heparin Sodium (Porcine) 7,500 unit 03/16/22 14:00 03/25/22 06:23 Heparin 5,000 Unit/1 Ml Vial SUB-Q 7,500 unit Q8HR VERN Administration Ceftriaxone Sodium 2 gm in 100 mls @ 200 mls/hr 03/23/22 10:00 03/25/22 09:44 Rocephin/Ns 2 Gm/100 Ml IV 200 mls/hr Q24H VERN Administration Protocol Insulin Human Isoph/Insulin Regular 15 unit 03/20/22 22:00 03/25/22 09:30 Insulin Nph/Regular 70/30 Inj SUB-Q 15 unit BID VERN Administration Insulin Human Regular 0 units 03/20/22 11:30 03/25/22 12:38 Insulin Regular, Human 100 Units/1 Ml SUB-Q 3 units ACHS VERN Administration Protocol Melatonin 5 mg 03/22/22 22:00 Melatonin 5 Mg Tab PO QHS PRN Sleep Metoclopramide HCl 5 mg 03/11/22 12:00 Metoclopramide 10 Mg/2 Ml Inj IV Q6H PRN Nausea And Vomiting Morphine Sulfate 2 mg 03/03/22 20:28 Morphine 2 Mg/1 Ml Inj IV Q4H PRN Pain, Moderate (4-6) Ondansetron HCl 4 mg 03/03/22 20:28 Ondansetron 4 Mg/2 Ml Inj IV Q8H PRN Nausea And Vomiting Oxycodone/Acetaminophen 1 tab 03/03/22 20:28 03/09/22 12:06 Oxycodone /Acetaminophen 5-325mg Tab PO 1 tab Q6H PRN Administration Pain, Moderate (4-6) Pantoprazole Sodium 40 mg 03/12/22 15:00 03/25/22 09:29 Pantoprazole 40 Mg Tab PO 40 mg QDAC VERN Administration Polyethylene Glycol 17 gm 03/16/22 10:00 03/25/22 09:31 Polyethylene Glycol 3350 17 Gm Powder PO 17 gm QDAY VERN Administration Prednisone 60 mg 03/25/22 10:00 03/25/22 09:29 Prednisone 20 Mg Tab PO 60 mg QDAY VERN Administration Senna/Docusate Sodium 2 tab 03/06/22 11:00 03/25/22 10:28 Sennosides/Docusate Sodium 8.6/50 Mg Tab PO 2 tab Q12H VERN Administration Sildenafil Citrate 20 mg 03/11/22 14:00 03/25/22 09:28 Sildenafil 20 Mg Tab PO 20 mg TID VERN Administration Sodium Chloride 10 ml 03/03/22 22:00 03/25/22 09:31 Sodium Chloride 0.9% 10 Ml Flush Syringe IV 10 ml BID VERN Administration Sodium Chloride 10 ml 03/03/22 20:28 Sodium Chloride 0.9% 10 Ml Flush Syringe IV PRN PRN LINE FLUSH Torsemide 40 mg 03/17/22 10:00 03/25/22 09:28 Torsemide 10 Mg Tab PO 40 mg DAILY VERN Administration Zolpidem Tartrate 5 mg 03/22/22 22:00 Zolpidem 5 Mg Tab PO QHS PRN Sleep
[2022-03-25 20:35] VITALS: BP 113/75
== END 2022-03-25 21:35 | disposition hospice, home (50) | DRG 291 ==
LOC: ED 12:31 → 4A 20:28
PROVIDERS: ADMIT Internal Medicine; ATTEND Student in an Organized Health Care Education/Training Program
PROC: 5A09457 Assistance with Respiratory Ventilation, 24-96 Consecutive Hours, Continuous Positive Airway Pressure (ICD-10-PCS; 2022-03-04)
PROC: 5A09557 Assistance with Respiratory Ventilation, Greater than 96 Consecutive Hours, Continuous Positive Airway Pressure (ICD-10-PCS; 2022-03-09)
PROC: 5A0955A Assistance with Respiratory Ventilation, Greater than 96 Consecutive Hours, High Flow/Velocity Cannula (ICD-10-PCS; 2022-03-09)
PROC: 4A033R1 Measurement of Arterial Saturation, Peripheral, Percutaneous Approach (ICD-10-PCS; principal; 2022-03-11)
DX: I50.33 Acute on chronic diastolic (congestive) heart failure (principal); J96.01 Acute respiratory failure with hypoxia; N30.00 Acute cystitis without hematuria; E44.1 Mild protein-calorie malnutrition; Z68.43 Body mass index [BMI] 50.0-59.9, adult; L97.429 Non-pressure chronic ulcer of left heel and midfoot with unspecified severity; N17.9 Acute kidney failure, unspecified; Z20.822 Contact with and (suspected) exposure to COVID-19; N18.32 Chronic kidney disease, stage 3b; B96.20 Unspecified Escherichia coli [E. coli] as the cause of diseases classified elsewhere; I27.20 Pulmonary hypertension, unspecified; E11.22 Type 2 diabetes mellitus with diabetic chronic kidney disease; E11.621 Type 2 diabetes mellitus with foot ulcer; M19.90 Unspecified osteoarthritis, unspecified site; J45.909 Unspecified asthma, uncomplicated; E66.01 Morbid (severe) obesity due to excess calories; Z71.3 Dietary counseling and surveillance; I12.9 Hypertensive chronic kidney disease with stage 1 through stage 4 chronic kidney disease, or unspecified chronic kidney disease; E87.5 Hyperkalemia; J32.9 Chronic sinusitis, unspecified; Z51.5 Encounter for palliative care; Z87.891 Personal history of nicotine dependence; Z88.3 Allergy status to other anti-infective agents; Z88.0 Allergy status to penicillin; Z91.013 Allergy to seafood
CPT/HCPCS: 36415; 36600; 71045; 71250; 78580; 80048; 80053; 81001; 82570; 82803; 82962; 83880; 84156; 84300; 84484; 85007; 85025; 85027; 87076; 87086; 87116; 87186; 93005; 93306; 93970; 94660; 94760; G0378; J3490; Q0177; Q9967; A9540; C8929; J0696; J1335; J1644; J1815; J1940; J2765; J2930; U0003